=== PATIENT | male | born 1930 | race Caucasian/White ===

== ENCOUNTER 2017-10-15 09:51 | Emergency (ER) | payer MEDICARE, OTHER ==
[~2017-10-15] VITALS: Ht 185.4 cm; Wt 78.0 kg
[~2017-10-15 09:51] MED LIST: ASPIRIN EC325 MG PO; ASPIRIN EC81 MG PO; CELEBREX200 MG PO; IBUPROFEN600 MG PO; LIPITOR80 MG PO; PLAVIX75 MG PO; TYLENOL EXTRA500 MG PO; ULTRAM50 MG PO; VITAMIN B12-FO1 EACH PO; VITAMIN D35000 UNI1 PO; XARELTO10 MG PO
== END 2017-10-15 11:19 | disposition home or self-care (01) ==
LOC: ED 09:51
DX: S43.401A Unspecified sprain of right shoulder joint, initial encounter (principal); S70.01XA Contusion of right hip, initial encounter; D64.9 Anemia, unspecified; Z88.2 Allergy status to sulfonamides; Z79.899 Other long term (current) drug therapy; Z79.82 Long term (current) use of aspirin; Z79.01 Long term (current) use of anticoagulants; W55.12XA Struck by horse, initial encounter
CPT/HCPCS: 73030; 73502; 99283

== ENCOUNTER 2018-09-20 10:53 | Emergency (ER) | payer MEDICARE, OTHER ==
[~2018-09-20] VITALS: Ht 185.4 cm; Wt 76.7 kg
--- OUTSIDE RECORDS SUMMARY | ~2018-09-20 | XMS | Encounter Summary ---
Demographics + + + | Address | [address] | | | [place] [address] | + + + | Home Phone | | + + + | Preferred Language | Unknown | + + + | Marital Status | | + + + | Synagogue Affiliation | 1041 | + + + | Race | Unknown | + + + | Ethnic Group | Unknown | + + + Author + + + | Author | [facility] | + + + | Organization | [facility] | + + + | Address | Unknown | + + + | Phone | Unavailable | + + + Support + + + + + | Name | Relationship | Address | Phone | + + + + + | Demond Castaneda | ECON | [address] | | | | | [place], [place] | | | | | [address] | | + + + + + | Rosina Castaneda | ECON | Unknown | | + + + + + Care Team Providers + +------+ + | Care Serology Teacher Name | Role | Phone | + +------+ + | Kartik Rya MD | PCP | | + +------+ + Reason for Referral Cardiac Rehabilitation (Routine) + +--------+ + + + + | Status | Reason | Specialty | Diagnoses / | Referred By | Referred To | | | | | Procedures | Contact | Contact | + +--------+ + + + + | Authorized | | Cardiac | Diagnoses | Elle, | [facility] | | | | Rehabilitatio | SOB | MD Jazlyn | [address] | | | | n | (shortness | [address] | Cardiac 28[address] | | | | | of breath) | [address] | [facility] | | | | | Stable | Link F | Way | | | | | angina (HCC) | [place] | [place] | | | | | S/P | [address] | [address] | | | | | coronary | Phone: | Phone: | | | | | artery stent | [phone] | [phone] | | | | | placement | Fax: | Fax: | | | | | Atherosclero | [phone] | [phone] | | | | | sis of | | | | | | | [place]ena | | | | | | | coronary | | | | | | | artery of | | | | | | | [place] heart | | | | | | | with stable | | | | | | | angina | | | | | | | pectoris | | | | | | | (HCC) | | | + +--------+ + + + + Nuclear Medicine (Routine) + +--------+ + + + + | Status | Reason | Specialty | Diagnoses / | Referred By | Referred To | | | | | Procedures | Contact | Contact | + +--------+ + + + + | Authorized | | | Diagnoses | Amalia Stanley | | | | | SOB | MD Jazlyn | [facility] | | | | | (shortness | [address] | | | | | of breath) | [address]ju [address] | [facility] | | | | | Stable | Link F | [place], [place] | | | | | angina (HCC) | [place], [place] | [address] | | | | | S/P | [address] | Phone: | | | | | coronary | Phone: | [phone] | | | | | artery stent | [phone] | Fax: | | | | | placement | Fax: | [phone] | | | | | Atherosclero | [phone] | | | | | | sis of | | | | | | | galena | | | | | | | coronary | | | | | | | artery of | | | | | | | [place] heart | | | | | | | with stable | | | | | | | angina | | | | | | | pectoris | | | | | | | (HCC) | | | | | | | Procedures | | | | | | | NM | | | | | | | Pharmaceutic | | | | | | | al (stress | | | | | | | and rest) | | | + +--------+ + + + + Reason for Visit + + + | Reason | Comments | + + + | Establish Care | self referral. stents 3 years ago | + + + Encounter Details +--------+---------+ + + + | Date | Type | Department | Care Team | Description | +--------+---------+ + + + | 07/22/ | Office | [facility] | Jazlyn Stanley, | Chest pain, | | 2019 | Visit | Cardiology Alisha | [address] | unspecified type | | | | [address] | Dr Hung, | (Primary Dx); SOB | | | | [facility] [address] | [place] [address] | (shortness of | | | | [place] [address] | [phone] | breath); Stable | | | | [phone] | | angina ([facility]); S/P | | | | | | coronary artery | | | | | | stent placement; | | | | | | Atherosclerosis of | | | | | | gal[place] coronary | | | | | | artery of galena | | | | | | heart with stable | | | | | | angina pectoris | | | | | | (HCC) | +--------+---------+ + + + Social History [...] + +---------+ + | Alcohol Use | Drinks/We | oz/Week | Comments | | | ek | | | + + +---------+ + | Yes | | | once a week | + + +---------+ + + + + | Sex Assigned at | Date Recorded | | | | + + + | Not on file | | + + + as of this encounter Last Filed Vital Signs + + + + | Vital Sign | Reading | Time Taken | + + + + | Blood Pressure | 104/62 | 07/22/2018 1:52 PM PST | + + + + | Pulse | 64 | 07/22/2018 1:52 PM PST | + + + + | Temperature | - | - | + + + + | Respiratory Rate | 18 | 07/22/2018 1:52 PM PST | + + + + | Oxygen Saturation | 100% | 07/22/2018 1:52 PM PST | + + + + | Inhaled Oxygen | - | - | | Concentration | | | + + + + | Weight | 76.7 kg (169 lb 3.2 | 07/22/2018 1:52 PM PST | | | oz) | | + + + + | Height | 185.4 cm (6' 1") | 07/22/2018 1:52 PM PST | + + + + | Body Mass Index | 22.32 | 07/22/2018 1:52 PM PST | + + + + in this encounter Progress Notes Jazlyn Stanley MD - 07/22/2018 2:00 PM PSTFormatting of this note may be different fro m the original. Date of visit: 07/22/2018 Primary Care Physician: KARTIK RAY CHIEF COMPLAINT: Chief Complaint Patient presents with [facility] self referral. stents 3 years ago HISTORY OF PRESENT ILLNESS: Demond is 87 y.o. here for evaluation of shortness of breath and coronary artery disease. No clear chest pain or anginal symptoms, tries to walk however gets intermittent right arm pressure and pain. Has to hold his arm next to his body sometimes. No lower ext edema, no or thopnea. Blood pressure has been controlled. Modestly active, had a fall in October of 2017 and had to have hip and knee surgery. Has known history of coronary artery disease, was [place] [address] Marrero, attempted CT O of LCX however was unsuccessful. Had PCI in [place] in Jun 2014, evaluated again in Apr 2015 stents were patent, the latest patient doesn't remember. Past medical history, SH, FH, and medications were reviewed in the chart. Medications: Outpatient Encounter Prescriptions as of 07/22/2018 Medication Sig Dispense Refill aspirin 81 MG EC tablet Take 81 mg by mouth daily with breakfast. atorvastatin (LIPITOR) 20 MG tablet Take 20 mg by mouth nightly. Cholecalciferol 5000 UNITS TABS Take by mouth daily. clopidogrel (PLAVIX) 75 MG tablet Take 75 mg by mouth daily. Cyanocobalamin (VITAMIN B 12 PO) Take by mouth. No facility-administered encounter medications on file as of 07/22/2018. Allergies No Known Allergies REVIEW OF SYSTEMS: Constitutional: Positive for mild fatigue. HEENT: Negative for nosebleeds, ear discharge, nasal congestion or soar throat. Eyes: Negative for visual disturbance, redness, or secretion. Respiratory: Negative for cough, sputum production, hemoptysis, wheezing. Cardiovascular: as HPI. Gastrointestinal: Negative for nausea, vomiting, diarrhea, abdominal pain and blood in stoo l. Genitourinary: Negative for dysuria or hematuria. Musculoskeletal: Chronic arthritic pain. Skin: Negative for rash. Neurological: Negative for dizziness. No numbness. No recent falls. No slurred speech. Hematological: No significant bruising. Psychiatric/Behavioral: No depression or anxiety. PHYSICAL EXAM Vital Signs: BP 104/62 | Pulse 64 | Resp 18 | Ht 1.854 m (6' 1") | Wt 76.7 kg (169 lb 3.2 oz) | SpO 2 100% | BMI 22.32 kg/m GENERAL APPEARANCE: Alert, oriented, cooperative, no distress, appears stated age. HEENT: Extraocular movements were intact. No jaundice. Pupiles round and reactive. NECK: No JVD, lymphadenopathy. Carotid upstrokes normal. No carotid bruit heard. CARDIAC: Regular rhythm and rate. There is normal S1 and S2. No galop. No murmur. CHEST: Normal bilateral symmetrical chest excursion.ackles or wheezing. No evidence of dull ness. ABDOMEN: Soft.No tenderness or guarding. No palpable organs. Active bowel sounds. EXTREMITIES: No lower extremities edema, cyanosis or clubbing. NEURO: Alert and oriented times three with no focal deficit. Cranial nerves are grossly no rmal. SKIN: Warm and dry. No rash. Psych: Normal affect and mood. DATA Lab Results Component Value Date/Time NA 140 06/16/2014 12:10 PM K 4.0 06/16/2014 12:10 PM CO2 26 06/16/2014 12:10 PM BUN 24 06/16/2014 12:10 PM CREATININE 1.31 (H) 06/16/2014 12:10 PM Lab Results Component Value Date/Time WBC 3.7 (L) 06/16/2014 12:10 PM HGB 10.0 (L) 06/16/2014 12:10 PM HCT 30.0 (L) 06/16/2014 12:10 PM MCV 93.9 06/16/2014 12:10 PM PLT 177 06/16/2014 12:10 PM Lab Results Component Value Date GLUF 89 06/16/2014 EC07/22/2018 Ordered and reviewed by myself showed normal sinus rhythm with nonspecific intraventricular delay Last Echo: 06/17 ECHO EF 60 % with Grade I diastolic dysfunction Last Stress test: Last Cath: 05/23/2015 Patent LAD and LCX stents. 07/07/14 Dr Dinh Morales PCI of LCX OM1 PROMUS 2.75 x 16 mm. 06/16/14 Failed PCI of LCX OM UNSCRAMBLER due to guidewire perforation at [facility] Last US carotid: ASSESSMENT: Patient is 87 y.o. 1. Coronary artery disease, dyspnea on exertion. Left dominant system, PCI to LAD and the l atest UNSCRAMBLER of OM. 2. Dyslipidemia. 3. History of cerebral vascular accident. 4. Chronic arthritic pain. Plan: Reviewed patient's chart notes and angiogram. Will proceed with Cardiolite stress test. Continue with aspirin and statin. Will refer for cardiac rehabilitation. Monitor blood pressure at home. Follow up in 6 months or sooner if needed *This report has been prepared using a voice recognition system. The report was reviewed fo r accuracy, however, sound-alike word errors, addition and/or deletions may occur. If there is any question about this report please contact me. Jazlyn Stanley MD, MPHin this encounter Plan of Treatment +--------+---------+ + + + | Date | Type | Specialty | Care Team | Description | +--------+---------+ + + + | 01/27/ | Office | Cardiology | Jazlyn Stanley, | | | 2019 | Visit | | MD Vikram Rene | | | | | | Dr [address], | | | | | | [place] [address] | | | | | | [phone] | | | | | | | | +--------+---------+ + + + + +--------+ + + | Name | Priori | Associated Diagnoses | Order Schedule | | | ty | | | + +--------+ + + | NM Pharmaceutical (stress and | Routin | SOB (shortness of | Expected: | | rest) | e | breath) Stable | 07/22/2018, Expires: | | | | angina (HCC) S/P | 01/19/2019 | | | | coronary artery | | | | | stent placement | | | | | Atherosclerosis Of | | | | | [place] Coronary | | | | | Artery Of [place] | | | | | Heart With Stable | | | | | Angina Pectoris | | | | | (Hcc) | | + +--------+ + + + +--------+ + + | Name | Priori | Associated Diagnoses | Order Schedule | | | ty | | | + +--------+ + + | Ambulatory referral to Cardiac | Routin | SOB (shortness of | Ordered: 07/22/2018 | | Rehab | e | breath) Stable | | | | | angina ([facility]) S/P | | | | | coronary artery | | | | | stent placement | | | | | Atherosclerosis Of | | | | | [place] Coronary | | | | | Artery Of [place] | | | | | Heart With Stable | | | | | Angina Pectoris | | | | | ([facility]) | | + +--------+ + + as of this encounter Procedures + +--------+ + + + | Procedure Name | Priori | Date/Time | Associated Diagnosis | Comments | | | ty | | | | + +--------+ + + + | EKG STANDARD 12 LEAD | Routin | 07/22/2018 | Chest pain, | Results for this | | | e | 2:10 PM | unspecified type | procedure are in the | | | | PST | SOB (shortness of | results section. | | | | | breath) | | + +--------+ + + + in this encounter Results EKG STANDARD 12 LEAD (07/22/2018 2:10 PM) + + + + + | Component | Value | Ref Range | Performed At | + + + + + | Ventricular Rate | 66 | BPM | [facility] | + + + + + | Atrial Rate | 66 | BPM | [facility] | + + + + + | P-R Interval | 180 | ms | [facility] | + + + + + | QRS Duration | 132 | ms | [facility] | + + + + + | Q-T Interval | 420 | ms | [facility] | + + + + + | QTC Calculation | 440 | ms | [facility] | | (Bezet) | | | | + + + + + | Calculated P Semin[place] | 68 | degrees | [facility] | + + + + + | Calculated R [place] | 29 | degrees | [facility] | + + + + + | Calculated T [place] | 53 | degrees | [facility] | + + + + + | Diagnosis | Normal sinus | | [facility] | | | rhythmNon-specific | | | | | intra-ventricular | | | | | conduction blockAbnormal | | | | | ECGWhen compared with | | | | | ECG of 17-JUN-2014 | | | | | 07:35,ST no longer | | | | | depressed in Inferior | | | | | leadsT wave inversion no | | | | | longer evident in | | | | | Inferior leadsT wave | | | | | inversion no longer | | | | | evident in Lateral | | | | | leadsPlease refer to | | | | | Providers office visit | | | | | note for Providers | | | | | Interpretation.Confirmed | | | | | by [facility] [place] Read Only, | | | | | [facility]ju ([id number]), | | | | | market editor Marlo Aggarwal | | | | | (122) on 07/22/2018 | | | | | 3:10:29 PM | | | + + + + + + + + + + | Performing | Address | City/State/Zipcode | Phone Number | | Organization | | | | + + + + + | [facility] | [address] 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
--- OUTSIDE RECORDS SUMMARY | ~2018-09-20 | XMS | Encounter Summary ---
Demographics + + + | Address | [address] | | | [place] [address] | + + + | Home Phone | | + + + | Preferred Language | Unknown | + + + | Marital Status | | + + + | Faith Affiliation | 1041 | + + + | Race | Unknown | + + + | Ethnic Group | Unknown | + + + Author + + + | Author | [facility] | + + + | Organization | [facility] | + + + | Address | Unknown | + + + | Phone | Unavailable | + + + Support + + + + + | Name | Relationship | Address | Phone | + + + + + | Demond Castaneda | ECON | [address] | | | | | [place], [place] | | | | | [address] | | + + + + + | Rosina Castaneda | ECON | Unknown | | + + + + + Care Team Providers + +------+ + | Care Electric Motor And Generator Assembler Name | Role | Phone | + +------+ + | Aimee Zimmerman Md, MD | PCP | Unavailable | + +------+ + Encounter Details +--------+ + + + + | Date | Type | Department | Care Team | Description | +--------+ + + + + | 07/16/ | Care | [facility] | [facility] | | | 2019 | Coordinatio | Cardiology Rica [facility] | | | | n | [address] | | | | | | [place] | | | | | | [address] | | | | | | [phone] | | | +--------+ + + + [...] + + + as of this encounter Progress Notes Hailey Brooks, [facility] - 07/16/2018 12:22 PM PSTOutside records pulled in. Available on care everywhere now. in this encounter Plan of Treatment +--------+---------+ + + + | Date | Type | Specialty | Care Team | Description | +--------+---------+ + + + | 01/27/ | Office | Cardiology | Jazlyn Almeida, | | | 2018 | Visit | | MD Vikram Rene | | | | | | Dr [address], | | | | | | [place] [address] | | | | | | [phone] | | | | | | | | +--------+---------+ + + + as of this encounter Visit Diagnoses Not on filein this encounter"
--- OUTSIDE RECORDS SUMMARY | ~2018-09-20 | XMS | Encounter Summary ---
Demographics + + + | Address | [address] | | | [place] [address] | + + + | Home Phone | | + + + | Preferred Language | Unknown | + + + | Marital Status | | + + + | Voodoo Affiliation | 1041 | + + + | Race | Unknown | + + + | Ethnic Group | Unknown | + + + Author + + + | Author | [facility] | + + + | Organization | [facility] | + + + | Address | Unknown | + + + | Phone | Unavailable | + + + Support + + + + + | Name | Relationship | Address | Phone | + + + + + | Demond Castaneda | ECON | [address] | | | | | [place], [place] | | | | | [address] | | + + + + + | Rosina Castaneda | ECON | Unknown | | + + + + + Care Team Providers + +------+ + | Care Belt Loop Machine Operator Name | Role | Phone | + +------+ + | Jerome Ray MD | PCP | | + +------+ + Reason for Visit +--------+ + | Reason | Comments | +--------+ + | Other | [facility] 10/15/17 | +--------+ + Encounter Details +--------+ + + + + | Date | Type | Department | Care Team | Description | +--------+ + + + + | 07/30/ | Documentati | [facility] Kapil | Suellen Russo, | Other ( Ashish | | 2019 | on Only | [address] [place] | MISAEL | kia 10/15/17) | | | | [address] | | | | | | [place] | | | | | | [address] | | | | | | [phone] | | | +--------+ + + + [...] + + + as of this encounter Plan of Treatment +--------+---------+ + + + | Date | Type | Specialty | Care Team | Description | +--------+---------+ + + + | 01/27/ | Office | Cardiology | Jazlyn Almeida, | | | 2018 | Visit | | MD Vikram Rene | | | | | | Dr [address], | | | | | | [place] [address] | | | | | | [phone] | | | | | | | | +--------+---------+ + + + as of this encounter Visit Diagnoses Not on filein this encounter"
--- OUTSIDE RECORDS SUMMARY | ~2018-09-20 | XMS | Clinical Summary ---
Demographics + + + | Address | [address] | | | [place] [address] | + + + | Home Phone | | + + + | Preferred Language | Unknown | + + + | Marital Status | | + + + | Gnosticism Affiliation | 1041 | + + + | Race | Unknown | + + + | Ethnic Group | Unknown | + + + Author + + + | Author | [email or web address] | + + + | Organization | [email or web address] | + + + | Address | Unknown | + + + | Phone | Unavailable | + + + Support + + + + + | Name | Relationship | Address | Phone | + + + + + | Dena Rose | ECON | [address] | | | | | [place], [place] | | | | | [address] | | + + + + + | Rosina Rose | ECON | Unknown | | + + + + + Care Team Providers + +------+ + | Care Android Ui Developer Name | Role | Phone | + +------+ + | Jerome Ray MD | PP | | + +------+ + Allergies No Known Allergies Current Medications + + +-------+---------+------+------+-------+ | Prescription | Sig. | Disp. | Refills | Star | End | Statu | | | | | | t | Date | s | | | | | | Date | | | + + +-------+---------+------+------+-------+ | aspirin 81 MG EC | Take 81 mg by mouth | | | | | Activ | | tablet | daily with | | | | | e | | | breakfast. | | | | | | + + +-------+---------+------+------+-------+ | Cholecalciferol | Take by mouth | | | | | Activ | | 5000 UNITS TABS | daily. | | | | | e | + + +-------+---------+------+------+-------+ | clopidogrel | Take 75 mg by mouth | | | | | Activ | | (PLAVIX) 75 MG | daily. | | | | | e | | tablet | | | | | | | + + +-------+---------+------+------+-------+ | atorvastatin | Take 20 mg by mouth | | | | | Activ | | (LIPITOR) 20 MG | nightly. | | | | | e | | tablet | | | | | | | + + +-------+---------+------+------+-------+ | Cyanocobalamin | Take by mouth. | | | | | Activ | | (VITAMIN B 12 PO) | | | | | | e | + + +-------+---------+------+------+-------+ Active Problems + + + | Problem | Noted Date | + + + | Cerebrovascular accident (HCC) | 07/22/2018 | + + + | Closed fracture of femur (HCC) | 07/22/2018 | + + + | Coronary arteriosclerosis | 07/22/2018 | + + + + + | Overview: Jul 03, 2015 | | Entered By: GUISEPPE MCDONOUGH | | Comment: EKG today shows old lateral infarct. PTCA x 1 OM1 06/09 | + + + + + | Coronary atherosclerosis of [place] coronary artery | 07/22/2018 | + + + | Stable angina (HCC) | 07/22/2018 | + + + | S/P coronary artery stent placement | 11/16/2015 | + + + + + | Overview: Overview: Last Assessment & Plan: May need to hold | | ASA and Plavix due to planned orthopedic procedure. Stent was | | placed 07/[address] [facility], [place] | + + + + + | Adenocarcinoma of prostate (HCC) | 10/06/2013 | + + + | CA prostate, adenoca (HCC) | 10/06/2013 | + + + Encounters +--------+ + + + + | Date | Type | Specialty | Care Team | Description | +--------+ + + + + | 08/05/ | Documentati | | Jazlyn Almeida, | | | 2019 | on Only | | MD | | +--------+ + + + + | 07/30/ | Documentati | | Suellen Russo, | Other ([facility] | | 2019 | on Only | | [place] | records 10/15/17) | +--------+ + + + + | 07/22/ | Office | | Jazlyn Almeida, | Chest pain, | | 2018 | Visit | | MD | unspecified type | | | | | | (Primary Dx); SOB | | | | | | (shortness of | | | | | | breath); Stable | | | | | | angina ([facility]); S/P | | | | | | coronary artery | | | | | | stent placement; | | | | | | Atherosclerosis of | | | | | | [place] coronary | | | | | | artery of [place] | | | | | | heart with stable | | | | | | angina pectoris | | | | | | ([facility]) | +--------+ + + + + | 07/16/ | Care | | Hailey Duckworth | | | 2019 | Coordinatio | | GENE Yu | | | | n | | | | +--------+ + + + + from Last 3 Months Social History + +-------+ +--------+ + | [...] + + + + | Temperature | 36.6 C (97.8 F) | 06/17/2014 7:31 AM PST | + + + + | Respiratory [...] PM PST | + + + + Plan of Treatment +--------+---------+ + + + | Date | Type | Specialty | Care Team | Description | +--------+---------+ + + + | 01/27/ | Office | | Jazlyn Almeida, | | | 2018 | Visit | | MD Vikram Rene | | | | | | Dr [address], | | | | | | [place] [address] | | | | | | [phone] | | | | | | | | +--------+---------+ + + + + + + + + | Health Maintenance | Due Date | Last Done | Comments | + + + + + | Vaccine: | | | | | Dtap/Tdap/Td (1 - | 1 | | | | Tdap) | | | | + + + + + | Vaccine: Zoster (1 | | | | | of 2) | 2 | | | + + + + + | Vaccine: | | | | | Pneumococcal 65+ | 7 | | | | High/Highest Risk (1 | | | | | of 2 - PCV13) | | | | + + + + + | Vaccine: Influenza | | | | | (Season Ended) | 9 | | | + + + + + Procedures + +--------+ + + + | [...] | | + +--------+ + + + from Last 3 Months Results EKG STANDARD 12 LEAD (07/22/2018 2:10 PM) + + + + + | Component | Value | Ref Range | Performed At | + + + + + | Ventricular Rate | 66 | BPM | [facility] | + + + + + [...] + + + + | Calculated P Lee | 68 | degrees | [facility] | + + + + + | Calculated R Lee | 29 | degrees | [facility] | + + + + + | Calculated T Lee | 53 | degrees | [facility] | + + + + + | Diagnosis | Normal sinus | | [facility] | | | rhythmNon-specific | | [...] | | | | | by [facility] [place] Read Only, | | | | | [facility] Anju ([id number]), | | | | | purchasing expeditor Marlo Aggarwal | | | | | (535) on 07/22/2018 | | | | | 3:10:29 PM | | | + + + + + + + + + + | Performing | Address | City/State/Zipcode | Phone Number | | Organization | | | | + + + + + | [facility] | [address] | [place] [address] | | + + + + + from Last 3 Months Insurance + +--------+ +------+-------+ + | Payer | Benefi | Subscriber | Type | Phone | Address | | | t Plan | ID | | | | | | / | | | | | | | Group | | | | | + +--------+ +------+-------+ + | MEDICARE | MEDICA | [id number] | | | [address] | | | [place] | | | | [place] [address] | | | IP-OP | | | | | + +--------+ +------+-------+ + | - WPS - | TRICAR | [id number] | | | [address] [address] | | [place] | [place] | | | | [place] | | | LIFE | | | | [address] | + +--------+ +------+-------+ + + +--------+ +--------+ + + | Guarantor Name | Accoun | Relation to | Date | Phone | Billing Address | | | t Type | Patient | of | | | | | | | | | | + +--------+ +--------+ + + | DENA ROSE | Person | Self [birth year] | Home: | [address] | | | al/Fam | | 1931 | [phone] | [place] [address] | | | dominique | | | [phone] | | + +--------+ +--------+ + +
--- OUTSIDE RECORDS SUMMARY | ~2018-09-20 | XMS | Clinical Summary ---
Demographics + + + | Address | [address] | | | [place] [address] | + + + | Home Phone | | + + + | Preferred Language | Unknown | + + + | Marital Status | | + + + | Holiness Affiliation | 1041 | + + + | Race | Unknown | + + + | Ethnic Group | Unknown | + + + Author + + + | Author | [facility] | | | and [place] | + + + | Organization | [...] + | Lesia Castaneda | ECON | [address] | | | | | [place] [address] | | + + + + + | Rosina Castaneda | ECON | Unknown | | + + + + + Care Team Providers + +------+ + | Care Apartment Leasing Specialist Name | Role | Phone | + +------+ + | Sergio Thompson MD | PP | | + +------+ + Allergies + + + + + + | Active Allergy | Reactions | Severity | Noted | Comments | | | | | Date | | + + + + + + | Sulfa Antibiotics | Nausea And Vomiting | Low | 07/24/19 | | | | | | 16 | | + + + + + + Medications + + + +---------+------+------+-------+ | Medication | Sig | Dispensed | Refills | Star | End | Statu | | | | | | t | Date | s | | | | | | Date | | | + + + +---------+------+------+-------+ | cholecalciferol | Take 1 capsule by | 30 | 2 | 05/2 | | Activ | | 5000 UNITS | mouth Daily. | capsule | | 20 | | e | | CAPSIndications: | | | | 14 | | | | Malignant neoplasm | | | | | | | | of prostate (HCC) | | | | | | | + + + +---------+------+------+-------+ | aspirin 81 mg | Take 81 mg by mouth | | 0 | | | Activ | | chewable tablet | Daily. | | | | | e | + + + +---------+------+------+-------+ | acetaminophen | Take 1,000 mg by | | 0 | | | Activ | | (TYLENOL) 500 mg | mouth Daily. Takes | | | | | e | | tablet | every am | | | | | | + + + +---------+------+------+-------+ | clopidogrel | Take 75 mg by mouth | | 0 | | | Activ | | (PLAVIX) 75 mg | Daily. | | | | | e | | tablet | | | | | | | + + + +---------+------+------+-------+ | cyanocobalamin | Take 500 mcg by | | 0 | | | Activ | | (VITAMIN B-12) 500 | mouth Daily. | | | | | e | | mcg tablet | | | | | | | + + + +---------+------+------+-------+ | MULTIPLE VITAMIN | Take by mouth | | 0 | | | Activ | | PO | Daily. | | | | | e | + + + +---------+------+------+-------+ | oxyCODONE | Take 1 tablet by | 20 | 0 | 06/2 | | Activ | | (ROXICODONE) 5 mg | mouth every 3 hours | tablet | | 9/20 | | e | | tablet | as needed for Pain. | | | 16 | | | + + + +---------+------+------+-------+ | atorvaSTATin | | | 0 | 12/2 | | Activ | | (LIPITOR) 20 mg | | | | 2/20 | | e | | tablet | | | | 18 | | | + + + +---------+------+------+-------+ Active Problems + + + | Problem | Noted Date | + + + | S/P coronary artery stent placement | 11/16/2015 | + + + + + | Last Assessment & Plan: May need to hold ASA and Plavix due | | to planned orthopedic procedure. Stent was [facility] | | Sabina Zamudio, [place] | + + + + + | Closed right hip fracture, initial encounter | 11/16/2015 | + + + + + | Last Assessment & Plan: Acute traumatic injury, admission and | | care per orthopedist transplant nurse practitioner today. | + + + + + | Low hemoglobin | 07/24/2015 | + + + + + | Last Assessment & Plan: Appears chronic s/p evaluation by GI | | and heme/onc. Will need type and crossmatch. 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 | + + + | CAD (coronary artery disease) | | + + + | Anemia | | + + + | CVA (cerebral vascular accident) | | + + + Encounters +--------+ + + + + | Date | Type | Specialty | Care Team | Description | +--------+ + + + + | 08/12/ | Hospital | | Demond Castellon | CA prostate, adenoca | | 2019 | Encounter | | MD [facility] | ([facility]) (Primary Dx); | | | | | | Cerebrovascular | | | | | | accident (CVA), | | | | | | unspecified | | | | | | mechanism ([facility]); | | | | | | Anemia, unspecified | | | | | | type; Closed right | | | | | | hip fracture, | | | | | | initial encounter | | | | | | ([facility]) | +--------+ + + + + from [...] + +---------+ + | Yes | 2 | 1.2 | | | | Glasses | | | | | of wine | | | | | 0 | | | | | Standard | | | | | drinks or | | | | | | | | | | equivalen | | | | | t | | | + + +---------+ + [...] + | Blood Pressure | 114/53 | 08/12/2018942 PDT | + + + + | Pulse | 59 | 08/12/2018942 PDT | + + + + | Temperature | 36.3 C (97.3 F) | 08/12/2018942 PDT | + + + + | Respiratory Rate | 16 | 08/12/2018942 PDT | + + + + | Oxygen Saturation | 97% | 08/12/2018942 PDT | + + + + | Inhaled Oxygen | - | - | | Concentration | | | + + + + | Weight | 75.7 kg (166 lb 14.2 | 08/12/201843 PDT | | | oz) | | + + + + | Height | 185.4 cm (6' 0.99") | 11/19/20151999 PDT | + + + + | Body Mass Index | 22.02 | 11/19/20151999 PDT | + + + + Plan of Treatment +--------+ + + + + | Date | Type | Specialty | Care Team | Description | +--------+ + + + + | 08/16/ | Appointment | | Demond Castellon | | | 2019 | | | MD [facility] [address] | | | | | | [address] | | | | | | [place] [address] | | | | | | [phone] | | | | | | | | +--------+ + + + + + + + + + | Health Maintenance | Due Date | Last Done | Comments | + + + + + | Vaccine: | | | | | Dtap/Tdap/Td (1 - | 1 | | | | Tdap) | | | | + + + + + | Vaccine: Zoster (2 | | 04/26/2014 | | | of 3) | 5 | | | + + + + + | Adult Annual | | | | | Wellness Visit | 5 | | | + + + + + | Vaccine: | | 06/01/2015 | | | Pneumococcal 65+ | 6 | | | | High/Highest Risk (2 | | | | | of 2 - PPSV23) | | | | + + + + + | Vaccine: Influenza | Completed | 03/27/2018, 03/04/2017, | | | | | 03/01/2016, Additional history | | | | | exists | | + + + + + Implants + +------+--------+ +--------+--------+--------+ | Implanted | Type | Area | Manufacture | Device | Shelf | Model | | | | | r | | Expira | / | | | | | | Identi | tion | Serial | | | | | | fier | Date | / Lot | + +------+--------+ +--------+--------+--------+ | Imp Hip Fem Stem Sumt Sz8 - | | Right: | JJHCS DEPUY | | 12/12/ | 1570-0 | | [id number]: Qty: 1 on | | Hip | ORTHO - | | 2018 | 5-150 | | 11/16/2015 by Rayo Mercado | | | DEPU | | | / | | MD Mo | | | | | | [id number] | | | | | | | | 1000 | + +------+--------+ +--------+--------+--------+ | Imp Hip Fem Hd Mod Cthcrt | | Right: | JJHCS DEPUY | | 04/14/ | 1363-5 | | 54mm - [id number]: | | Hip | ORTHO - | | 2023 | 4-000 | | Qty: 1 on 11/16/2015 by | | | DEPU | | | / | | Rayo Mercado MD | | | | | | /[id number] | | | | | | | | 8 | + +------+--------+ +--------+--------+--------+ | Imp Hip Slv Mod Unipl | | Right: | [employer]CS DEPUY | | 04/24/ | 1363-1 | | [id number] | | Hip | ORTHO - | | 2024 | 4-000 | | [id number]: Qty: 1 on | | | DEPU | | | / | | 11/16/2015 by Rayo Mercado | | | | | | /[id number] | | MD Mo | | | | | | 6 | + +------+--------+ +--------+--------+--------+ Procedures + +--------+ + + + | Procedure Name | Priori | Date/Time | Associated Diagnosis | Comments | | | ty | | | | + +--------+ + + + | CBC WITH | STAT | 08/12/2018 | CA prostate, | Results for this | | DIFFERENTIAL | | 9:31 PDT | adenoca (HCC) | procedure are in the | | | | | Cerebrovascular | results section. | | [...] | | METABOLIC PANEL | | 9:31 PDT | adenoca (HCC) | procedure are in the | | | | | Cerebrovascular | results section. | | [...] for this | | | | 9:31 PDT | adenoca (HCC) | procedure are in the | | | | | Cerebrovascular | results section. | | [...] + + from Last 3 Months Results CBC with Differential (08/12/2018 9:31 PDT) + + + + + + | Component | Value | Ref Range | Performed | Pathologist | | | | | At | Signature | + + + + + + | WBC | 5.1 | 4.0 - 11.0 K/uL | [facility] | [facility] | | | | | | [facility] | | | | | | [facility] - | | | | | | LABORATORY | | + + + + + + | RBC | 2.90 (L) | 4.30 - 5.70 | [facility] | | | | | M/uL | [facility] | [address] | [place] | [phone] | | [facility] | | [address] | | | - LABORATORY | | | | + + + + + PSA, Diagnostic (08/12/2018 9:31 PDT) + + + + + + [...] [address] | [place] | [phone] | | [facility] | | [address] | | | - LABORATORY | | | | + + + + + Comprehensive Metabolic Panel (08/12/2018 9:31 PDT) + +---------+ + + + | [...] mL/min/1.73m2 | [facility] | | | | | | [facility] - | | | | | | LABORATORY | | + +---------+ + + + | Ca | 9.6 | 8.7 - 10.4 | [...] [address] | [place] | [phone] | | [facility] | | [address] | | | - LABORATORY | | | | + + + + + from Last 3 Months Insurance + +--------+ +--------+ +---------+--------+ | Payer | Benefi | Subscriber | Effect | Phone | Address | Type | | | t Plan | ID | malissa | | | | | | / | | Dates | | | | | | Group | | | | | | + +--------+ +--------+ +---------+--------+ | MEDICARE | MEDICA | [id number] | 11/23/18 | [phone] | | Medica | | | RE | | 97-Pre | 5 | | re | | | PART A | | sent | | | | | | AND B | | | | | | + +--------+ +--------+ +---------+--------+ | | TRICAR | [id number] | 04/13/ | [phone] | | Indemn [...] | + +--------+ +--------+ + + | TonyaDemond Solo | Person | Self | [birth year] | [address] | | | al/Fam | | 1931 | [phone] | [place] [address] | | | dominique | | | 7 (Home) | | + +--------+ +--------+ + + Advance Directives Patient has advance care planning documents, and code status on file. For more information, please contact:[facility] [place] [address] + + + + + | Code Status | Date | Date | Comments | | | Activated | Inactivated | | + + + + + | Full Code | 11/19/2015 | 11/22/2015 | | | | 21:40 | 18:34 | | + + + + + + + + +---+ | | | | | + + + +---+ | Full Code | 11/16/2015 | 11/19/2015 | | | | 21:49 | 21:37 | | + + + +---+
--- OUTSIDE RECORDS SUMMARY | ~2018-09-20 | XMS | Encounter Summary ---
Demographics + + + | Address | [address] | | | [place] [address] | + + + | Home Phone | | + + + | Preferred Language | Unknown | + + + | Marital Status | | + + + | Protestant Affiliation | 1041 | + + + [...] + | Lesia Castaneda | ECON | [address] | | | | | [place] [address] | | + + + + + | Rosina Castaneda | ECON | Unknown | | + + + + + Care Team Providers + +------+ + | Care Tray Drier Operator Name | Role | Phone | + +------+ + | Sergio Thompson MD | PCP | | + +------+ + Encounter Details +--------+ + + + + | Date | Type | Department | Care Team | Description | +--------+ + + + + | 08/12/ | Hospital | [facility] | Demond Castellon | CA prostate, adenoca | | 2019 | Encounter | [facility] | MD [facility] [address] | ([facility]) (Primary Dx); | | | | ONCOLOGY CLINIC [address] | [address] | Cerebrovascular | | | | [address] | [place] [address] | accident (CVA), | | | | [place] [address] | [phone] | unspecified | | | | [phone] | | mechanism (HCC); | | | | | | Anemia, unspecified | | | | | | type; Closed right | | | | | | hip fracture, | | | | | | initial encounter | | | | | | ([facility]) | +--------+ + + + + Social [...] 75.7 kg (166 lb 14.2 | 08/12/2018 0943 PDT | | | oz) | | + + + + | Height | - | - | + + + + | Body Mass Index | 22.02 | 11/19/20151999 PDT | + + + + documented in this [...] Daily. Takes | | | | | | tablet | every am | | | | | + + + +---------+ + + | aspirin 81 mg | Take 81 mg by mouth | | 0 | | | | chewable tablet | Daily. | | | | | + + + +---------+ + + | atorvaSTATin | | | 0 | 05/16/20 | | | (LIPITOR) 20 mg | | | | 18 | | | tablet | | | | | | + + + +---------+ + + | cholecalciferol | Take 1 capsule by | 30 | 2 | 10/14/19 | | | 5000 UNITS | mouth Daily. | capsule | | 14 | | | CAPSIndications: | | | | | | | Malignant neoplasm | | | | | | | of prostate (HCC) | | | | | | + + + +---------+ + + | clopidogrel | Take 75 mg by mouth | | 0 | | | | (PLAVIX) 75 mg | Daily. | | | | | | tablet | | | | | | + + + +---------+ + + | cyanocobalamin | Take 500 mcg by | | 0 | | | | (VITAMIN B-12) 500 | mouth Daily. | | | | | | mcg tablet | | | | | | + + + +---------+ + + | MULTIPLE VITAMIN | Take by mouth | | 0 | | | | PO | Daily. | | | | | + + + +---------+ + + | oxyCODONE | Take 1 tablet by | 20 | 0 | 11/22/19 | | | (ROXICODONE) 5 mg | mouth every 3 hours | tablet | | 16 | | | tablet | as needed for Pain. | | | | | + + + +---------+ + + documented as of this encounter Progress Notes Estelita Loyd CMA - 08/12/2018 0944 PDTREVIEW OF SYSTEMS Constitutional: Mild fatigue. Denies [...] chart: Active emond Castellon MD - 08/12/2018 0717 PDT Hem-Onc Progress Note [facility] Pt. Name/Age/: Demond Castaneda 87 y.o. 1930 Med. Record Number: [id number] Date of admission: (Not on file) Assessment and plan: 1. 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 Stroke, November, 3. Angina Pectoris, Dec, 2013, S/p PCI, [facility], [place] 4. Fall hip fracture, November,, [...] follow- up cardiac stress test obtained through [facility] with negative findings for is chemia. [...] Electronically signed by: Demond Castellon, 08/12/2018 7:17 [facility] TIME SPENT 20 MIN. > 50% AT BEDSIDE, WITH FAMILY/PATIENT IN CARE AND SIDE SEAM TENDER ON UNIT AND CO ORDINATION OF CARE Portions of this chart may have been created with [employer] voice recognition software. Occasi onal wrong-word or sound-alike substitutions may have occurred due to the inherent epperson itations of voice recognition software. Please read the chart carefully and recognize, using context, where these substitutions have occurred. documented in this encounter Plan of Treatment +--------+ + + + + | Date | Type | Specialty | Care Team | Description | +--------+ + + + + | 08/16/ | Appointment | Oncology | Demond Castellon | | 2019 | | | MD [facility] [address] | | | | | | [address] | | | | | | [place] [address] | | | | | | [phone] | | | | | | | | +--------+ + + + + documented as of this encounter Procedures + +--------+ + + + | Procedure Name | Priori | Date/Time | Associated Diagnosis | Comments | | | ty | | | | + +--------+ + + + | CBC WITH | STAT | 08/12/2018 | CA prostate, | Results for this | | DIFFERENTIAL | | : PDT | adenoca (HCC) | procedure are [...] this encounter Results PSA, Diagnostic (08/12/2018 9:31 PDT) + + + + + + | Component | Value | Ref Range | Performed | Pathologist | | | | | At | Signature | + + + + + + | PSA | 15.89 (H) | <=4.00 ng/mL | [facility] | [...] | + + + + + | [facility] | [address] | [place] | [phone] | | [facility] | | [address] | | | - LABORATORY | | [...] | | | | | mL/min/1.73m2 | . [facility] | | | [facility] | | | MEDICAL | | | | | | CENTER - | | | | | | LABORATORY | | + +---------+ + + + | Ca | 9.6 | 8.7 - 10.4 | [facility] | | | | | mg/dL | . [facility] | | | | [...] [address] | [place] | [phone] | | [facility] | | [address] | | | - LABORATORY | | | | + + + + + CBC with Differential (08/12/2018 9:31 PDT) + [...] | | | | M/uL | [facility] | [...] | | Count | | | [facility] | | [...] | | | Granulocyte | | | [facility] | | | s | | | [...] | | Lymphocytes | | K/uL | [facility] | [...] | Immature | | K/uL | [facility] | | | Granulocyte | | | [...] + | [facility] | [address] | [place] | [phone] | | [facility] | | [address] | | | - LABORATORY | | [...]
--- OUTSIDE RECORDS SUMMARY | ~2018-09-20 | XMS | Clinical Summary ---
Demographics + + + | Address | [address] | | | [place] [address] | + + + | Home Phone | | + + + | Preferred Language | Unknown | + + + | Marital Status | | + + + | Pentecostalism Affiliation | Unknown | + + + | Race | White | + + + | Ethnic Group | Not or | + + + Author + + + | Author | [facility] | + + + | Organization | [facility] | + + + | Address | Unknown | + + + | Phone | Unavailable | + + + Support + + +---------+ + | Name | Relationship | Address | Phone | + + +---------+ + | Sandy Zamora | ECON | Unknown | | + + +---------+ + Care Team Providers + +------+ + | Care Neuroscientist Name | Role | Phone | + +------+ + | Jerome Ray MD | PP | | + +------+ + Source Comments DAVID is fully live on both [facility] and [facility] Allergies No Known Allergies Current Medications + + +-------+---------+------+------+-------+ | Prescription | Sig. | Disp. | Refills | Star | End | Statu | | | | | | t | Date | s | | | | | | Date | | | + + +-------+---------+------+------+-------+ | aspirin EC 81 mg | 81 mg. | | | | | Activ | | oral tablet,delayed | | | | | | e | | release (DR/EC) | | | | | | | + + +-------+---------+------+------+-------+ | cyanocobalamin | Take by mouth. | | | | | Activ | | 1,000 mcg oral | | | | | | e | | tablet | | | | | | | + + +-------+---------+------+------+-------+ | clopidogrel 75 mg | 75 mg. | | | | | Activ | | oral tablet | | | | | | e | + + +-------+---------+------+------+-------+ | atorvastatin 80 mg | Take 80 mg by mouth | | | | | Activ | | oral tablet | once daily. | | | | | e | + + +-------+---------+------+------+-------+ | Cholecalciferol, | Take 5,000 Units by | | | | | Activ | | Vitamin D3, 5,000 | mouth once daily. | | | | | e | | unit oral tablet | | | | | | | + + +-------+---------+------+------+-------+ | Multivitamins oral | Chew and swallow 1 | | | | | Activ | | tablet,chewable | tablet once daily. | | | | | e | + + +-------+---------+------+------+-------+ Active Problems + + + | Problem | Noted Date | + + + | Chronic coronary artery disease | 10/05/2015 | + + + | Cerebrovascular accident (CVA) ([facility]) | 10/05/2015 | + + + | Low hemoglobin | 07/24/2015 | + + + | Gastrointestinal hemorrhage | 06/16/2015 | + + + | Unstable angina pectoris (HCC) | 05/22/2015 | + + + | Anemia | 07/08/2014 | + + + | Adenocarcinoma of prostate (HCC) | 10/06/2013 | + + + Social [...] + +---------+ + | Yes | 1 | 0.6 | | | | Glasses | | | | | of wine | | | + + [...] Pressure | 125/63 | 09/29/2015 11:02 AM PDT | + + + + | Pulse | 52 | 09/29/2015 11:02 AM PDT | + + + + | Temperature | - | - | + + + + | Respiratory Rate | - | - | + + + + | Oxygen Saturation | - | - | + + + + | Inhaled Oxygen | - | - | | Concentration | | | + + + + | Weight | 78 kg (172 lb) | 09/29/2015 11:02 AM PDT | + + + + | Height | 185.4 cm (6' 1") | 09/29/2015 11:02 AM PDT | + + + + | Body Mass Index | 22.69 | 09/29/2015 11:02 AM PDT | + + + + Plan of Treatment + + + + + | Health Maintenance | Due Date | Last Done | Comments | + + + + + | Pneumococcal (Adult) | | | | | (1 of 2 - PCV13) | 7 | | | + + + + + | Influenza (Flu) | | | | | vaccination (#1) | 8 | | | + + + + + Results Not on filefrom Last 3 Months Insurance + +--------+ +--------+ + + | Payer | Benefi | Subscriber | Type | Phone | Address | | | t Plan | ID | | | | | | / | | | | | | | Group | | | | | + +--------+ +--------+ + + | MEDICARE | MEDICA | xxxxxxxxxx | Medica | +- | [address] | | | RE A & | | re | [phone] | [place] [address] | | | B | | | | | + +--------+ +--------+ + + | | TRICAR | xxxxxxxxx | Indemn | +- | | | | E 4 | | ity | [phone] | | | | LIFE | | | | | + +--------+ +--------+ + + + +--------+ +--------+ + + | Guarantor Name | Accoun | Relation to | Date | Phone | Billing Address | | | t Type | Patient | of | | | | | | | | | | + +--------+ +--------+ + + | DENA ROSE | Person | Self [birth year] Home: | [address] | | | al/Fam | | 1931 | [phone] | [place] [address] | | | dominique | | | [phone] | | + +--------+ +--------+ + +
--- OUTSIDE RECORDS SUMMARY | ~2018-09-20 | XMS | Encounter Summary ---
Demographics + + + | Address | [address] | | | [place] [address] | + + + | Home Phone | | + + + | Preferred Language | Unknown | + + + | Marital Status | | + + + | Pentecostal Affiliation | 1041 | + + + | Race | Unknown | + + + | Ethnic Group | Unknown | + + + Author + + + | Author | [facility] | + + + | Organization | [facility] | + + + | Address | Unknown | + + + | Phone | Unavailable | + + + Support + + + + + | Name | Relationship | Address | Phone | + + + + + | Demond Castaneda | ECON | [address] | | | | | [place], [place] | | | | | [address] | | + + + + + | Rosina Castaneda | ECON | Unknown | | + + + + + Care Team Providers + +------+ + | Care Worm Farmer Name | Role | Phone | + +------+ + | Jerome Ray MD | PCP | | + +------+ + Encounter Details +--------+ + + + + | Date | Type | Department | Care Team | Description | +--------+ + + + + | 08/05/ | Documentati | [facility] | Jazlyn Almeida, | | | 2019 | on Only | Cardiology Alisha | [address] | | | | | [address] | [address], | | | | | [facility] [address] | [place] [address] | | | | | [place] [address] | [phone] | | | | | [phone] | | | +--------+ + + + [...] + as of this encounter Progress Notes Jazlyn Almeida MD - 08/05/2018 12:14 PM PDTCalled the patient and reviewed stress test results with him. No evidence of reversible defect to suggest ischemia. Normal systolic function EF 63%. Normal transient ischemic dilatation score. Patient will follow-up as scheduled.in this enc ounter Plan of Treatment +--------+---------+ + + + | Date | Type | Specialty | Care Team | Description | +--------+---------+ + + + | 01/27/ | Office | Cardiology | Jazlyn Almeida, | | | 2018 | Visit | | MD [address] | | | | | | Dr [address], | | | | | | [place] [address] | | | | | | [phone] | | | | | | | | +--------+---------+ + + + as of this encounter Visit Diagnoses Not on filein this encounter"
== END 2018-09-20 12:30 | disposition home or self-care (01) ==
LOC: ED 10:53
DX: S52.125A Nondisplaced fracture of head of left radius, initial encounter for closed fracture (principal); Z85.46 Personal history of malignant neoplasm of prostate; D50.9 Iron deficiency anemia, unspecified; Z87.891 Personal history of nicotine dependence; Z90.49 Acquired absence of other specified parts of digestive tract; Z88.2 Allergy status to sulfonamides; Z79.82 Long term (current) use of aspirin; V80.010A Animal-rider injured by fall from or being thrown from horse in noncollision accident, initial encounter
CPT/HCPCS: 73080; 99283

== ENCOUNTER 2019-12-09 10:39 | Emergency (ER) | payer MEDICARE, OTHER ==
[~2019-12-09] VITALS: Ht 185.4 cm; Wt 76.7 kg
--- OUTSIDE RECORDS SUMMARY | ~2019-12-09 | XMS | Encounter Summary ---
Demographics + + + | Address | [address] | | | [place] [address] | + + + | Home Phone | | + + + | Preferred Language | Unknown | + + + | Marital Status | | + + + | Jainism Affiliation | Unknown | + + + | Race | White | + + + | Ethnic Group | Not or | + + + Author + + + | Author | [facility] | + + + | Organization | [facility] | + + + | Address | Unknown | + + + | Phone | Unavailable | + + + Support + + +---------+ + | Name | Relationship | Address | Phone | + + +---------+ + | Sandy Zamora | ECON | Unknown | | + + +---------+ + Care Team Providers + +------+ + | Care Box Cutter Name | Role | Phone | + +------+ + | Jerome Ray MD | PCP | | + +------+ + Encounter Details +--------+ + + + + | Date | Type | Department | Care Team | Description | +--------+ + + + + | 09/06/ | Document-Sc | UNKNOWN DEPARTMENT | Unknown . | | | 2016 | anned | [address] | | | | | [address] | | | | | | [place], [place] | | | | | | [address] | | | +--------+ + + + + Social History + +-------+ +--------+------+ | Tobacco Use | Types | Packs/Day | Years | Date | | | | | Used | | + +-------+ +--------+------+ | Never Assessed | | | | | + +-------+ +--------+------+ + + + | Sex Assigned at | Date Recorded | | | | + + + | Not on file | | + + + + + + + | Job Start Date | Occupation | Industry | + + + + | Not on file | Not on file | Not on file | + + + + + + + + | Travel History | Travel Start | Travel End | + + + + + + | No recent travel history available. | + + documented as of this encounter Plan of Treatment Not on filedocumented as of this encounter Procedures + +--------+ + + + | Procedure Name | Priori | Date/Time | Associated Diagnosis | Comments | | | ty | | | | + +--------+ + + + | RADIOLOGY | | 09/07/2015 | | Results for this | | | | 12:00 AM | | procedure are in the | | | | PDT | | results section. | + +--------+ + + + documented in this encounter Results RADIOLOGY (09/07/2015 12:00 AM PDT) + + + | Narrative | Performed At | + + + | | | + + + documented in this encounter Visit Diagnoses Not on filedocumented in this encounter"
--- OUTSIDE RECORDS SUMMARY | ~2019-12-09 | XMS | Encounter Summary ---
Demographics + + + | Address | [address] | | | [place] [address] | + + + | Home Phone | | + + + | Preferred Language | Unknown | + + + | Marital Status | | + + + | Restorationist Affiliation | 1041 | + + + | Race | Unknown | + + + | Ethnic Group | Unknown | + + + Author + + + | Author | [facility] | | | [facility] [place] | + + + | Organization | [facility] | | | [facility] [place] | + + + | Address | Unknown | + + + | Phone | Unavailable | + + + Support + + + + + | Name | Relationship | Address | Phone | + + + + + | Lesia Castnaeda | ECON | [address] | | | | | [place] [address] | | + + + + + | Rosina Castaneda | ECON | Unknown | | + + + + + | Sandy Zamora | ECON | [address] | | | | [place] | | | | | [address] | | + + + + + Care Team Providers + +------+ + | Care Land Acquisition Analyst Name | Role | Phone | + +------+ + | Jerome Ray | PCP | | | MD | | | + +------+ + Reason for Visit Diagnostic/Screening (Routine) +--------+--------+ + + + + | Status | Reason | Specialty | Diagnoses / | Referred By | Referred To | | | | | Procedures | Contact | Contact | +--------+--------+ + + + + | Closed | | Radiology | Diagnoses | [place], | [facility] | | | | | Right hip | Maxi Morley MD | Medicine | | | | | pain | [address] | [address] | | | | | Procedures | [address] | [place], | | | | | [place] Bone Scan | [place] | [place] | | | | | 3 Phase | [address] | [address] | | | | | | Phone: | Phone: | | | | | | [phone] | [phone] | | | | | | Fax: | Fax: | | | | | | [phone] | [phone] | +--------+--------+ + + + + Encounter Details +--------+ + + + + | Date | Type | Department | Care Team | Description | +--------+ + + + + | 05/14/ | Hospital | [facility] | Maxi Zamora MD | | | 2019 | Encounter | [facility] | [facility] | | | | MEDICINE [address] | [place] | | | | | [address] [place], | [address] | | | | | [place] [address] | [phone] | | | | | [phone] | | | +--------+ + + + + Social History + +-------+ +--------+ + | Tobacco Use | Types | Packs/Day | Years | Date | | | | | Used | | + +-------+ +--------+ + | Former Smoker | | | | Quit: 05/26/1965 | + +-------+ +--------+ + + +---+---+---+ | Smokeless Tobacco: | | | | | Never Used | | | | + +---+---+---+ + + +---------+ + | Alcohol Use | Drinks/Week | oz/Week | Comments | + + +---------+ + | Yes | 0 Standard drinks | 7.0 | | | | or equivalent 7 | | | | | Glasses of wine | | | + + +---------+ + + + + | Sex Assigned at | Date Recorded | | | | + + + | Not on file | | + + + documented as of this encounter Medications at Time of Discharge + + + +---------+ + + | Medication | Sig | Dispensed | Refills | Start | End Date | | | | | | Date | | + + + +---------+ + + | atorvaSTATin | Take 20 mg by mouth | | 0 | 05/16/20 | | | (LIPITOR) 20 mg | nightly. | | | 18 | | | tablet | | | | | | + + + +---------+ + + | aspirin 81 mg | Take 81 mg by mouth | | 0 | | | | chewable tablet | Daily. | | | | 0 | + + + +---------+ + + documented as of this encounter Plan of Treatment +--------+---------+ + + + | Date | Type | Specialty | Care Team | Description | +--------+---------+ + + + | 02/01/ | Office | Cardiology | Jazlyn Almeida, | | | 2019 | Visit | | MD Vikram RICARDO | | | | | | [place] | | | | | | [address] | | | | | | | | +--------+---------+ + + + documented as of this encounter Procedures + +--------+ + + + | Procedure Name | Priori | Date/Time | Associated Diagnosis | Comments | | | ty | | | | + +--------+ + + + | NM BONE SCAN 3 PHASE | Routin | 05/14/2019 | Right hip pain | Results for this | | | e | 3:23 PM | | procedure are in the | | | | PST | | results section. 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 Dictated and Signed by: Demond James MD | | | Electronically signed: 05/14/2019 3:44 PM | | + + + + + + | Narrative | Performed At | + + + | EXAM:NM BONE SCAN 3 PHASE CLINICAL HISTORY: RIGHT HIP PAIN | [facility] | | COMPARISON: 01/13/2008. TECHNIQUE: Blood flow and blood pool | | | imaging is performed followed by 3 hour delayed whole body imaging | | | following the intravenous administration of 26 millicuries of | | | technetium 99m MDP. FINDINGS: Blood flow: Symmetric blood | | | flow in the hips and legs. Blood pool: Symmetric blood pool in the | | | hips and legs. Delayed: There is a small focus of increased | | | activity at the distal tip of the femoral stem. There is a | | | small focus asymmetric activity near the base of the right superior | | | pubic ramus and anterior acetabulum. No abnormal activity | | | associated with the knee arthroplasties. Bilateral degenerative | | | changes in the hands and wrists, greater on the left at the thumb | | | base. There is stable activity that projects anterior to the left | | | sacrum. 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 There is | | | absent activity in the left renal fossa, unchanged. | | + + + + + | Procedure Note | + + | Jhon, Rad Results In - 05/14/2019 3:47 PM PST EXAM:NM BONE SCAN 3 PHASE | | | | CLINICAL HISTORY: RIGHT HIP PAIN | | | | COMPARISON: 01/13/2008. | | | | TECHNIQUE: Blood flow and blood pool imaging is performed followed by 3 hour | | delayed whole body imaging following the intravenous administration of 26 | | millicuries of technetium 99m MDP. | | | | FINDINGS: | | | | Blood flow: Symmetric blood flow in the hips and legs. | | | | Blood pool: Symmetric blood pool in the hips and legs. | | | | Delayed: | | | | There is a small focus of increased activity at the distal tip of the femoral | | stem. | | | | There is a small focus asymmetric activity near the base of the right superior | | pubic ramus and anterior acetabulum. | | | | No abnormal activity associated with the knee arthroplasties. | | | | Bilateral degenerative changes in the hands and wrists, greater on the left at | | the thumb base. | | | | There is stable activity that projects anterior to the left sacrum. 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 | | | | There is absent activity in the left renal fossa, unchanged. 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 | | | | Dictated and Signed by: Demond James MD | | Electronically signed: 05/14/2019 3:44 PM | + + + +---------+ + + | Performing | Address | City/State/Zipcode | Phone Number | | Organization | | | | + +---------+ + + | [facility] | | | | + +---------+ + + documented in this encounter Visit Diagnoses Not on filedocumented in this encounter"
--- OUTSIDE RECORDS SUMMARY | ~2019-12-09 | XMS | Encounter Summary ---
Demographics + + + | Address | [address] | | | [place] [address] | + + + | Home Phone | | + + + | Preferred Language | Unknown | + + + | Marital Status | | + + + | Methodist Affiliation | 1041 | + + + | Race | Unknown | + + + | Ethnic Group | Unknown | + + + Author + + + | Author | [facility] | | | [facility] [place] | + + + | Organization | [facility] | | | [facility] [place] | + + + | Address | Unknown | + + + | Phone | Unavailable | + + + Support + + + + + | Name | Relationship | Address | Phone | + + + + + | Lesia Castaneda | ECON | [address] | | | | | [place] [address] | | + + + + + | Rosina Castaneda | ECON | Unknown | | + + + + + | Sandy Zamora | ECON | [address] | | | | [place] | | | | | [address] | | + + + + + Care Team Providers + +------+ + | Care Hand Engraver Name | Role | Phone | + +------+ + | Jerome Ray | PCP | | | MD | | | + +------+ + Encounter Details +--------+ + + + + | Date | Type | Department | Care Team | Description | +--------+ + + + + | 03/29/ | Hospital | [facility] | Demond Castellon | | | 2012 - | Encounter | MED CTR CANCER | MD [address] | | | | | [address] | [facility] | | | 04/24/ | | [place] | [place] [address] | | | 2012 | | [address] | [phone] | | | | | [phone] | | | +--------+ + + + [...] 02/01/ | Office | Cardiology | Jazlyn lAmeida, | | | 2020 | Visit | | MD Vikram RICARDO | | | | | | [place] | | | | | | [address] | | | | | | | | +--------+---------+ + + + documented as of this encounter Visit Diagnoses Not on filedocumented in this encounter"
--- OUTSIDE RECORDS SUMMARY | ~2019-12-09 | XMS | Clinical Summary ---
Demographics + + + | Address | [address] | | | [place] [address] | + + + | Home Phone | | + + + | Preferred Language | Unknown | + + + | Marital Status | | + + + | Nondenominational Affiliation | Unknown | + + + | Race | White | + + + | Ethnic Group | Not or | + + + Author + + + | Author | [facility] | + + + | Organization | [facility] | + + + | Address | Unknown | + + + | Phone | Unavailable | + + + Support + + +---------+ + | Name | Relationship | Address | Phone | + + +---------+ + | Sandy Zamora | ECON | Unknown | | + + +---------+ + Care Team Providers + +------+ + | Care International Accounting Manager Name | Role | Phone | + +------+ + | Jerome Ray MD | PCP | | + +------+ + Source Comments DAVID is fully live on both [facility] Allergies No Known Allergies Medications + + + +---------+------+------+-------+ | Medication | Sig | Dispensed | Refills | Star | End | Statu | | | | | | t | Date | s | | | | | | Date | | | + + + +---------+------+------+-------+ | aspirin EC 81 mg | 81 mg. | | 0 | | | Activ | | oral tablet,delayed | | | | | | e | | release (DR/EC) | | | | | | | + + + +---------+------+------+-------+ | cyanocobalamin | Take by mouth. | | 0 | | | Activ | | 1,000 mcg oral | | | | | | e | | tablet | | | | | | | + + + +---------+------+------+-------+ | clopidogrel 75 mg | 75 mg. | | 0 | | | Activ | | oral tablet | | | | | | e | + + + +---------+------+------+-------+ | atorvastatin 80 mg | Take 80 mg by mouth | | 0 | | | Activ | | oral tablet | once daily. | | | | | e | + + + +---------+------+------+-------+ | Cholecalciferol, | Take 5,000 Units by | | 0 | | | Activ | | Vitamin D3, 5,000 | mouth once daily. | | | | | e | | unit oral tablet | | | | | | | + + + +---------+------+------+-------+ | Multivitamins oral | Chew and swallow 1 | | 0 | | | Activ | | tablet,chewable | tablet once daily. | | | | | e | + + + +---------+------+------+-------+ Active Problems + + + | Problem | Noted Date | + + + | Chronic coronary artery disease | 10/05/2015 | + + + | Cerebrovascular accident (CVA) | 10/05/2015 | + + + | Low hemoglobin | 07/24/2015 | + + + | Gastrointestinal hemorrhage | 06/16/2015 | + + + | Unstable angina pectoris | 05/22/2015 | + + + | Anemia | 07/08/2014 | + + + | Adenocarcinoma of prostate | 10/06/2013 | + + + Social History + + + +--------+ + | Tobacco Use | Types | Packs/Day | Years | Date | | | | | Used | | + + + +--------+ + | Former Smoker | Cigarettes | 2 | 21 | Quit: 02/06/1966 | + + + +--------+ + + +---+---+---+ | Smokeless Tobacco: | | | | | Never Used | | | | + +---+---+---+ + + +---------+ + | Alcohol Use | Drinks/Week | oz/Week | Comments | + + +---------+ + | Yes | 1 Glasses of wine | 1.0 | | + + +---------+ + + [...] recent travel history available. | + + Last Filed Vital Signs + + + + + | Vital Sign | Reading | Time Taken | Comments | + + + + + | Blood Pressure | 125/63 | 09/29/2015 11:02 AM | | | | | PDT | | + + + + + | Pulse | 52 | 09/29/2015 11:02 AM | | | | | PDT | | + + + + + | Temperature | - | - | | + + + + + | Respiratory Rate | - | - | | + + + + + | Oxygen Saturation | - | - | | + + + + + | Inhaled Oxygen | - | - | | | Concentration | | | | + + + + + | Weight | 78 kg (172 lb) | 09/29/2015 11:02 AM | | | | | PDT | | + + + + + | Height | 185.4 cm (6' 1") | 09/29/2015 11:02 AM | | | | | PDT | | + + + + + | Body Mass Index | 22.69 | 09/29/2015 11:02 AM | | | | | PDT | | + + + + + Plan of Treatment + + + + + | Health Maintenance | Due Date | Last Done | Comments | + + + + + | Pneumococcal | | | | | vaccination (1 of 2 | 7 | | | | - PCV13) | | | | + + + + + | Influenza (Flu) | | | | | vaccination (#1) | 9 | | | + + + + + Results Not on filefrom Last 3 Months Insurance + +--------+ +--------+ + +--------+ | Payer | Benefi | Subscriber | Effect | Phone | Address | Type | | | t Plan | ID | malissa | | | | | | / | | Dates | | | | | | Group | | | | | | + +--------+ +--------+ + +--------+ | MEDICARE | MEDICA | xxxxxxxxxx | 11/23/18 | [phone] | [address] | [address] | | | RE A & | | [phone] | | | [address] | | sent | | [place] | | | | | | | | [address] | | + +--------+ +--------+ + +--------+ | | TRICAR | [phone] | | [phone] | | Indemn | | | E 4 | | 013-Pr | [phone] | | ity | | | LIFE | | esent | | | | + +--------+ +--------+ + +--------+ + +--------+ +--------+ + + | Guarantor Name | Accoun | Relation to | Date | Phone | Billing Address | | | t Type | Patient | of | | | | | | | | | | + +--------+ +--------+ + + | Demond Castaneda | Person | Self [birth year] | [address] | | | al/Fam | | 1931 | [phone] | [place] [address] | | | dominique | | | [address] (Home) | | + +--------+ +--------+ + +
--- OUTSIDE RECORDS SUMMARY | ~2019-12-09 | XMS | Encounter Summary ---
Demographics + + + | Address | [address] | | | [place] [address] | + + + | Home Phone | | + + + | Preferred Language | Unknown | + + + | Marital Status | | + + + | Rastafari Affiliation | [id number] | + + + | Race | Unknown | + + + | Ethnic Group | Unknown | + + + Author + + + | Author | [facility] | | | and [place] | + + + | Organization | [facility] | | | and [place] | + + + | Address | Unknown | + + + | Phone | Unavailable | + + + Support + + + + + | Name | Relationship | Address | Phone | + + + + + | Lesia Rose | ECON | [address] | | | | | [place] [address] | | + + + + + | Rosina Rose | ECON | Unknown | | + + + + + | Sandy Zamora | ECON | [address] | | | | [place] | | | | | [address] | | + + + + + Care Team Providers + +------+ + | 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 | Role | Phone | + +------+ + | Imer Boo MD | PCP | | + +------+ + Reason for Visit + + + | Reason | Comments | + + + | Hip Pain | | + + + | Foot Pain | | + + + Auth/Cert +--------+--------+ + + + + | Status | Reason | Specialty | Diagnoses / | Referred By | Referred To | | | | | Procedures | Contact | Contact | +--------+--------+ + + + + | | | | Diagnoses | | | | | | | Closed | | | | | | | fracture of | | | | | | | neck of | | | | | | | right femur, | | | | | | | initial | | | | | | | encounter | | | | | | | ([facility]) Hip | | | | | | | fracture, | | | | | | | right, | | | | | | | closed, | | | | | | | initial | | | | | | | encounter | | | | | | | ([facility]) | | | | | | | Coronary | | | | | | | artery | | | | | | | disease | | | | | | | involving | | | | | | | craig | | | | | | | coronary | | | | | | | artery of | | | | | | | craig heart | | | | | | | without | | | | | | | angina | | | | | | | pectoris | | | | | | | Anemia, | | | | | | | unspecified | | | | | | | type Closed | | | | | | | fracture of | | | | | | | neck of | | | | | | | right femur, | | | | | | | initial | | | | | | | encounter | | | | | | | ([facility]) | | | | | | | [[id number]] | | | | | | | | | | | | | | Procedures | | | | | | | HEMIARTHROPL | | | | | | | ASTY HIP | | | +--------+--------+ + + + + Encounter Details +--------+---------+ + + + | Date | Type | Department | Care Team | Description | +--------+---------+ + + + | 11/15/ | Surgery | [facility] | Rayo Anderson | Right | | 2016 | | [facility] | [address] | Hemiarthroplasty Hip | | | | [address] | [facility] | | | | | [place] | [place] [address] | | | | | [address] | [phone] | | | | | [phone] | | | +--------+---------+ + + + Social History + +-------+ [...] + + +---------+ + | Yes | 2 Glasses of wine | 2.0 | | | | 0 Standard drinks | | | | | or equivalent | | | + + +---------+ + + + + | Sex Assigned at | Date Recorded | | | | + + + | Not on file | | + + + documented as of this encounter Last Filed Vital Signs + + + + + | Vital Sign | Reading | Time Taken | Comments | + + + + + | Blood Pressure | 153/71 | 11/16/2015 6:00 PM | | | | | PDT | | + + + + + | Pulse | 58 | 11/16/2015 6:13 PM | | | | | PDT | | + + + + + | Temperature | 37.2 C (99 F) | 11/16/2015 6:00 PM | | | | | PDT | | + + + + + | Respiratory Rate | 16 | 11/16/2015 6:00 PM | | | | | PDT | | + + + + + | Oxygen Saturation | 100% | 11/16/2015 6:13 PM | | | | | PDT | | + + + + + | Inhaled Oxygen | - | - | | | Concentration | | | | + + + + + | Weight | 87.1 kg (192 lb) | 11/16/2015 12:37 PM | | | | | PDT | | + + + + + | Height | 185.4 cm (6' 0.99") | 11/16/2015 12:37 PM | | | | | PDT | | + + + + + | Body Mass Index | 25.34 | 11/16/2015 12:37 PM | | | | | PDT | | + + + + + documented in this encounter Discharge Summaries Keith Martinez MD - 11/19/2015 2:46 PM PDT [facility] DISCHARGE SUMMARY Pt. Name/Age/: Dena Rose 84 y.o. 1930 Date of Admission: 11/16/2015 Date of Discharge: 11/19/2015 Admitting Physician: Rayo Anderson MD Primary Care Provider: Imer Boo MD Discharging Physician: Keith Martinez MD DISCHARGE DIAGNOSES: Active Hospital Problems Diagnosis Closed right hip fracture, initial encounter CA prostate, adenoca S/P coronary artery stent placement chronic anemia, etiology unclear Resolved Hospital Problems Diagnosis No resolved problems to display. DISCHARGE MEDICATIONS: Current Facility-Administered Medications: acetaminophen 650 mg Oral Q6H PRN aspirin 81 mg Oral Daily atorvaSTATin 80 mg Oral Nightly bisacodyl 10 mg Rectal Daily PRN calcium carbonate 1,000 mg Oral Q2H PRN clopidogrel 75 mg Oral Daily docusate sodium 200 mg Oral BID HYDROmorphone 0.25-1 mg Intravenous Q2H PRN lactulose 30 mL Oral Daily PRN menthol throat lozenges 1 lozenge Buccal Q2H PRN ondansetron 4 mg Intravenous Q6H PRN oxyCODONE 5 mg Oral Q3H PRN pantoprazole 40 mg Oral QAM AC phenol 1-2 spray Mouth/Throat Q3H PRN polyethylene glycol 17 g Oral Daily PRN senna 8.6 mg Oral BID PRN niferex 150 Oral 1 pill daily for 30 days DISCHARGE INSTRUCTIONS: PENDING RESULTS: HOSPITAL COURSE: Please refer to the H&P for full details. In short this 84-year-old male had a right hip f racture on the day of admission after his horse stepped on his foot and he fell backwards. His history is remarkable for coronary artery disease with a stent placed in 2014, a hist ory of prostate cancer, and a history of chronic anemia which is currently being followed by Dr. Castellon. The patient was admitted and taken to the operating room where he underwent operative repai r of a femoral neck fracture with placement of an endoprosthesis. The patient required a to guanako of 4 units of red blood cells to treat anemia noting his baseline hematocrit on presenta tion was 25.9. Patient on the day of discharge has a hematocrit of 27.7. He had been treat ed with combination of aspirin and Plavix for his coronary stent and Plavix was discontinued because of the duration of time from stenting and need for surgery but aspirin is being con tinued at 81 mg daily. The patient had a transferrin saturation of 10% postoperatively and he was given 200 mg of IV iron sucrose and will be treated with Niferex 150 one daily for an other 30 days noting that he is chronically followed by Dr. Castellon. Patient has been ev aluated by occupational and physical therapy and at the time of discharge will be transferre d to inpatient rehab for further therapies prior to returning home. PHYSICAL EXAM: Temp: 37.6 C (99.7 F), Pulse: 84, Resp: 20, BP: 124/59 mmHg, SpO2 96 % on room air at f low rate 1L/min Temp Min: 37.6 C (99.7 F) Max: 38.8 C (101.8 F) Weight: 87.091 kg (192 lb) Patient seen and examined by me on discharge day Less than 30 minutes were spent on discharge and coordination of post-hospital care. Electronically signed by: Keith Martinez MD, 11/19/2015 14:46 [facility] Portions of this chart may have been created with Qt Software voice recognition software. Occasi onal wrong-word or sound-alike substitutions may have occurred due to the inherent epperson itations of voice recognition software. Please read the chart carefully and recognize, using context, where these substitutions have occurred documented in this encounter Medications at Time of Discharge + + + +---------+ + + | Medication | Sig | Dispensed | Refills | Start | End Date | | | | | | Date | | + + + +---------+ + + | acetaminophen | Take 1,000 mg by | | 0 | | | | (TYLENOL) 500 mg | mouth Daily. Takes | | | | 9 | | tablet | every am | | | | | + + + +---------+ + + | aspirin 81 mg | Take 81 mg by mouth | | 0 | | | | chewable tablet | Daily. | | | | 0 | + + + +---------+ + + | atorvaSTATin | Take 20 mg by mouth | | 0 | | | | (LIPITOR) 80 MG | nightly. | | | | 9 | | tablet | | | | | | + + + +---------+ + + | celecoxib | Take 200 mg by mouth | | 0 | | | | (CELEBREX) 200 mg | Daily. | | | | 6 | | capsule | | | | | | + + + +---------+ + + | cholecalciferol | Take 1 capsule by | 30 | 2 | 10/14/19 | | | 5000 UNITS | mouth Daily. | capsule | | 14 | 9 | | CAPSIndications: | | | | | | | Malignant neoplasm | | | | | | | of prostate (HCC) | | | | | | + + + +---------+ + + | clopidogrel | Take 75 mg by mouth | | 0 | | | | (PLAVIX) 75 mg | Daily. | | | | 9 | | tablet | | | | | | + + + +---------+ + + | cyanocobalamin | Take 500 mcg by | | 0 | | | | (VITAMIN B-12) 500 | mouth Daily. | | | | 9 | | mcg tablet | | | | | | + + + +---------+ + + | ergocalciferol | Take 50,000 Units by | | 0 | | | | (VITAMIN D-2) 50,000 | mouth Once a week. | | | | 7 | | units capsule | | | | | | + + + +---------+ + + | MULTIPLE VITAMIN | Take by mouth | | 0 | | | | PO | Daily. | | | | 9 | + + + +---------+ + + | oxyCODONE | Take 1 tablet by | 20 | 0 | 11/22/19 | | | (ROXICODONE) 5 mg | mouth every 3 hours | tablet | | 16 | 9 | | tablet | as needed for Pain. | | | | | + + + +---------+ + + documented as of this encounter Progress Rayo Borges MD - 11/19/2015 11:18 AM PDTOrtho: Hospitalist note reviewed Mild pain with movement Dressing intact and only mild swelling Continue PT increasing activity as tolerated. Keith Peña MD - 11/18/2015 12:[address] [facility] PM Hospitalist Progress Note Dena Rose is a 84 y.o. male ASSESSMENT and PLAN: 1. Postoperative anemia Patient is receiving 2 units of packed red blood cells. He has had a chronic anemia is parveen ng evaluated by Dr. Castellon including bone marrow biopsy. In September he had a transferrin sa turation of 22% but with blood loss will likely need iron therapy. I'm going to repeat his iron values realizing this will be post 4 unit transfusion will give at least 200 mg of IV i jenniffer sucrose eating for the iron studies to return. I'll also check his B12 and folate notin g we do not have records of those values. 2. Hip fracture The patient is status post repair with the plan of being transferred to acute rehab once he is clinically stable with respect to bleeding. 3. Coronary artery disease status post stenting Patient is on aspirin 81 mg daily noting his stent was placed in April 2014 we'll contin ue off Plavix for now. SUBJECTIVE: Patient reports weakness and fatigue associated with his hematocrit of 21. He denies eris sea or uncontrolled pain. VITALS: Temp: 37.9 C (100.2 F), Pulse: 80, Resp: 20, BP: 142/62 mmHg, SpO2 90 % on room air at flow rate 1L/min Temp Min: 37.4 C (99.3 F) Max: 38.3 C (100.9 F) Weight: 87.091 kg (192 lb) Intake/Output Summary (Last 24 hours) at 11/18/15 1256 Last data filed at 11/18/15 1133 Gross per 24 hour Intake 1320 ml Output 1755 ml Net -435 ml PHYSICAL EXAM: Cardiovascular: Regular rate and rhythm Respiratory: Clear laterally Abdomen: Soft without tenderness Extremities: Examination of the right lower extremity does not show a significant amount of swelling at the surgery site DIAGNOSTIC STUDIES: Available data and images were reviewed personally. Significant results and findings are a ddressed here or in the Assessment and Plan. Lab Results Component Value Date HGB 7.4* 11/18/2015 HCT 21.7* 11/18/2015 PLT 160 11/16/2015 WBC 4.5 11/16/2015 Lab Results Component Value Date NA 140 11/18/2015 K 4.0 11/18/2015 CL 107 11/18/2015 CO2 26 11/18/2015 CREA 1.22 11/18/2015 BUN 23* 11/18/2015 CRP 27.2* 02/16/2013 No results found for: POCGLU No results found for: POCGLU Xr Chest Ap Portable 11/16/2015 XR CHEST AP PORTABLE. 11/16/2015 1:33 PM HISTORY: HIP PAIN FOOT PAIN . AMINA RISON: None available. FINDINGS: Heart size within normal limits for portable technique. There is calcification of the ectatic aorta. Otherwise unremarkable mediastinal contours. Lungs appear hyperinflated, with mild increase in lucency in the upper lung zones, right gre ater than left. Mild hazy opacification in the left midlung zone medially . Left-sided rib fractures, likely old . No pleural effusion or pneumothorax. No acute osseous or soft tis luanne abnormalities. IMPRESSION - Mild hazy opacification in the left midlung zone medially, nonspecific, possibly representing contusive change in the setting of trauma, versus atelec tasis, versus mild pneumonia. Patient may benefit from PA and lateral x-ray of the chest. 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 Dictated and Signed by : Nitish Graves MD Electronically signed: 11/16/2015 3:21 PM Fl C-arm Stats No Charge 11/16/2015 No Radiologist interpretation, please see Chart Review. Xr Hip Right 2-3 Views 11/17/2015 XR HIP RIGHT 2-3 VIEWS. 11/16/2015 8:34 PM HISTORY: intra op. COMPARISON: FINDINGS/IMPRESSION - Intraoperative fluoroscopic images demonstrate placement of r ight hip hemiarthroplasty prosthesis. Cannulated screws of the proximal left femur are also partly visualized. Please see operative report for further information. Dictated and Sign ed by: Nitish Graves MD Electronically signed: 11/17/2015 8:17 AM Xr Hip Right 2-3 Views 11/16/2015 XR HIP RIGHT 2-3 VIEWS. 11/16/2015 1:33 PM HISTORY: HIP PAIN FOOT PAIN. AMINA RISON: CT abdomen pelvis 07/28/2007 FINDINGS: There is a fracture through the right femoral neck, with some impaction at the fracture site. Right femoral head is appropriately situate d relative to the acetabulum, with degenerative change at the right hip. Three cannulated s crews seen in the proximal left femur, without evidence of residual fracture. Degenerative change seen at the left hip, including some medial joint compartment narrowing. Metallic se eds superimposed over the expected location of the prostate, compatible with prior brachial therapy. Degenerative change seen symmetrically at bilateral SI joints. There is appearanc e of osteopenia. Unremarkable overlying soft tissues. IMPRESSION - Fracture through the r ight femoral neck, with some impaction at the fracture site. Degenerative changes at both hi ps, compatible with osteoarthritis. Prior instrumentation at the left proximal femur, withou t evidence of residual fracture or hardware complication. Dictated and Signed by: Nitish nuñez MD Electronically signed: 11/16/2015 3:14 PM Total time of approximately 25 minutes was spent with the patient and/or patient's family, and/or on the patient's floor/unit, of which more than 50% was spent counseling and/or coord ination the patient's care as outlined above. Keith Martinez 11/18/2015 12:56 [facility] Portions of this chart may have been created with Qt Software voice recognition software. Occasi onal wrong-word or sound-alike substitutions may have occurred due to the inherent epperson itations of voice recognition software. Please read the chart carefully and recognize, using context, where these substitutions have occurred Rayo Prather MD - 11/18/2015 10:21 AM PDTOrtho: Feeling very weak Dressing intact Mild swelling...thigh doesn't look distended NVM intact HGB 7.4 Ordered 2 units of packed cells and discussed with Hospitalist. Tejal Carter MD - 11/17/2015 1:04 PM PDT [facility] HOSPITALIST PROGRESS NOTE PATIENT NAME: Dena Rose AGE: 84 y.o. DATE OF SERVICE: 11/17/2015 SUBJECTIVE: No chest pain, no shortness of breath. No new complaints. States walked twice w ith therapy today. Verbalizes that he thinks it is helpful and he did it with his last surge ry. OBJECTIVE: VITAL SIGNS FOR LAST 24 HOURS: Temp: [36.3 C (97.3 F)-37.6 C (99.7 F)] 37.6 C (9 9.7 F) Pulse: [53-78] 78 Resp: [10-21] 18 BP: (103-153)/(54-84) 118/56 mmHg INTAKE/OUTPUT THIS SHIFT: Intake/Output Summary (Last 24 hours) at 11/17/15 1304 Last data filed at 11/17/15 1022 Gross per 24 hour Intake 3732 ml Output 1895 ml Net 1837 ml EXAM: WDWN NAD Lungs: clear no wheeze Heart: RRR Abd: soft, non tender Extr: stable post op change right LE, neurovasc int. No edema MEDICATIONS REVIEWED: aspirin 81 mg Oral Daily atorvaSTATin 80 mg Oral Nightly ceFAZolin (ANCEF, KEFZOL) IV 1 g Intravenous 4 times per day clopidogrel 75 mg Oral Daily docusate sodium 200 mg Oral BID pantoprazole 40 mg Oral QAM AC LABORATORY REVIEWED INCLUDING: Lab Results Component Value Date WBC 4.5 11/16/2015 HGB 8.4* 11/17/2015 HCT 24.5* 11/17/2015 Lab Results Component Value Date CREA 1.15 11/17/2015 BUN 23* 11/17/2015 NA 142 11/17/2015 K 4.7 11/17/2015 CL 110* 11/17/2015 CO2 27 11/17/2015 ASSESSMENT AND PLAN: Active Hospital Problems Diagnosis Closed right hip fracture, initial encounter CA prostate, adenoca S/P coronary artery stent placement Low hemoglobin Resolved Hospital Problems Diagnosis No resolved problems to display. Plan: continue to monitor chronic anemia, patient lives out of town and has good prognosis, likely would benefit from acute rehab. Care per Dr. Anderson. DATE/TIME: 11/17/2015 13:04 SIGNED: Tejal Altamirano MD Portions of this chart may have been created using Qt Software voice recognition software. Occas ional wrong-word or "sound alike" substitutions may have occurred due to the inherent limita tions of voice recognition software. Please read chart carefully and recognize using context where these substitutions have occurred.Electronically signed by Tejal Altamirano MD at 1:07 PM Bharat Cortez, PharmD - 11/16/2015 2:41 PM PDTFormatting of this n ote might be different from the original. PHARMACY SERVICES: ADMISSION MEDICATION REVIEW Dena Rose is a 84 y.o. male admitted on 11/16/2015 12:31 Patient is a reliable historian. Patient s prior to admit medication and over the counter (OTC) medications/herbal supplem ents list obtained from: [x] Verbal interview (patient is able to recall drug name, strength, frequency, etc.) [] Patient/family member provided a complete current medication list or bottles [] MAR from [facility] facility: [] Doctor's office: [] Pharmacy list names if received from multiple pharmacies: [] [employer] insurance reported information [] Care Everywhere [] Other sources: Vaccines up to date? Yes No Unsure Influenza [x] patients states sometime Fall of 2014 [] [] Pneumococcal [] [] [x] Tdap [] [] [x] Shingles [x] patients states sometime Fall 2014 [] [] Noted medications discrepancies or medication-related issues: Medication added: Celecoxib 200 mg PO daily Other: [facility] is main pharmacy now [facility] in [place] is used for vitamins and anything that needs to be acquired emerge ntly Medication review performed and electronically signed by Bharat De Leon PHARMD 14:42 document ed in this encounter H&P Notes Rayo Anderson MD - 11/16/2015 4:25 PM PDT [address] [address] HISTORY AND PHYSICAL RAYO ANDERSON MD Patient: DENA ROSE Admitting: RAYO ANDERSON MR #: [id number] LOC: PT TYPE: Adm Date: 11/16/2015 : 1930 DATE: 11/16/2015 HISTORY: The patient is an 84-year-old male who 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 His new horse stepped on his foot and he tripped and fell, injuring his right h ip. He noted immediate pain in the hip, however, was unable to flag down any help for appr oximately an hour. He was then brought to the emergency room at [facility] where x-rays r evealed an intracapsular hip fracture, which is displaced. He is admitted for surgical car e. PAST MEDICAL HISTORY: Coronary artery disease for which he had a coronary stent placed in 06/2014. He had a left hip fracture with repair with cannulated screws. He is not certai n exactly how many years ago, it was several years, from which he has recovered without di fficulty and has returned to being very active on a regular basis. He denies lung problems . No liver disease. No diabetes. No tuberculosis. No bleeding disorders.He has a history of chronic anemia. Also a history of prostate cancer. CURRENT MEDICATIONS: Plavix. Aspirin. Occasional Celebrex. REVIEW OF SYSTEMS: Negative other than for his recent injury. PHYSICAL EXAMINATION: GENERAL: Reveals a well-developed, well-nourished male who is well oriented to person, pl huong and time. VITAL SIGNS: Temperature 97.4, pulse 58, respirations 12, blood pressure is 130/64, O2 sa turations were 100 percent on room air, weight is 192 pounds. HEENT: Head normocephalic without lesions. Eyes: Pupils equal, round and reactive to li ght. Extraocular muscles intact. Ears, nose, and throat within normal limits, without tra nancy. HEART: Regular rate and rhythm without murmurs. CHEST: Clear to auscultation. Good expansion bilaterally. ABDOMEN: Soft, flat, nontende r, no masses or organomegaly. EXTREMITIES: Essentially within normal limits for his age wi th good range of motion, strength, and sensation, circulation in both upper extremities an d in the left lower extremity. Right lower extremity: There is marked discomfort to any at tempts at range of motion. Sensation, circulation and motor control are intact. RADIOGRAPHS: X-rays show a displaced intracapsular fracture of the right hip. PLAN: The patient is admitted for surgical care. We have discussed options at some lengt h. We will plan to do a hemiarthroplasty. We discussed the procedure along with possible complications, including infection, leg length discrepancy, instability with possible disl ocations, wearing out or loosening of the components long term care social worker, etc. He also understands th e possibilities of anesthetic or medical complications. We have discussed the fact that wi th him on Plavix and aspirin he has an increased risk for bleeding and since he is starting with a low hemoglobin he will more likely than not need a blood transfusion. He understan ds. He states he has no further questions and consents to the surgical procedure. RAYO ANDERSON MD Dictated by RAYO ANDERSON MD 11/16/2015 16:25:37 Transcribed on 11/16/2015 17:09:35 by job# [id number] Confirmation #: [id number] cc: IMER DENA BOO documented in this encounter Consult Notes Selma Zayas RN - 11/17/2015 12:09 PM PDTOrder received for acute rehab consult. Await ing therapy evaluations to be completed before making a recommendation on rehab services; IP R will follow progress. Thank you for this referral. Electronically signed by: Selma Mccabe am, RN CRRN 11/17/2015 12:09 asch, Tejal Perez MD - 11/16/2015 3:[address] [facility] PMG Hospitalist Consult Note Pt. Name/Age/: Dena Rose 84 y.o. 1930 Date of admission: 11/16/2015 Date of Consultation: 11/16/2015 Physician requesting consult: Keanu Hester MD Reason for Consult: Pre op evaluation requested by Dr. Anderson for right hip fracture ASSESSMENT and PLAN: Principal Problem: Closed right hip fracture, initial encounter Active Problems: CA prostate, adenoca Low hemoglobin S/P coronary artery stent placement Plan: benefit outweighs risk for orthopedic treatment of acute hip fracture, patient denies angina, stent was placed in 2013, currently on ASA and Plavix so will need blood bank richa ng and likely transfusion of packed cells, platelets, plasma PRN, orders to be written by or tho attending HISTORY OF PRESENT ILLNESS: This is an 84 y.o. male with a history of backwards ground level fall after his right foot was stepped on by his horse. He denies headache, chest pain, LOC etc. He does have pain of h is right hip and knee and requests not to have a lamas placed if possible. 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 Final decision making per ortho mady, b lood bank products as needed- patient agreeable to transfusions as needed. PAST MEDICAL and SURGICAL HISTORY: Past Medical History Diagnosis Date Carotid stenosis Femur fracture, left (HCC) Basal cell carcinoma of skin Actinic keratosis Eczema Osteoarthritis Hearing loss wears hearing aids Pes planus Wears dentures full upper CAD (coronary artery disease) Anemia CVA (cerebral vascular accident) (HCC) H/O: facial fractures Fx eight/more rib-closed Past Surgical History Procedure Laterality Date Cath placement 05/23/15 Coronary artery stent 07/07/14 Left femur fracture repair Brachytherapy breast Egd and colonoscopy N/A 07/25/2015 Procedure: EGD / COLONOSCOPY; Surgeon: Dena More MD; Location: [facility] FAMILY HISTORY: family history is not on file. CAD SOCIAL HISTORY: reports that he quit smoking about 50 years ago. He has never used smokeless tobacco. He r eports that he drinks about 1.2 oz of alcohol per week. He reports that he does not use illi cit drugs. Wine every other night, one glass. No smoking since 1965. CURRENT MEDICATIONS: ALLERGIES: Allergies Allergen Reactions Sulfa Antibiotics Nausea And Vomiting REVIEW OF SYSTEMS: Positive for right hip and leg pain. A complete 10-system review was otherwise negative ex cept as noted in the HPI. VITAL SIGNS: Temp: 36.2 C (97.2 F), Pulse: 58, Resp: 10, BP: 129/62 mmHg, SpO2 100 % on at flow ra te L/min Temp Min: 36.2 C (97.2 F) Max: 36.2 C (97.2 F) Weight: 87.091 kg (192 lb) PHYSICAL EXAMINATION: Gen Racquel - alert, cooperative and no distress Head - Normocephalic, without obvious abnormality, atraumatic Eyes - PERRL, conjunctiva/corneas clear ENT - mucous membranes moist Neck - supple Lungs - clear to auscultation, no wheezes or rales and unlabored breathing Heart - normal rate, regular rhythm, normal S1, S2, no murmurs, rubs, clicks or gallops Abdomen - soft, non-tender, without masses or organomegaly Extremities - no peripheral edema, no clubbing or cyanosis; RLE shortened and ext rotate d, pain with movement Skin - no rashes, RUQ healed scar Neurologic - Alert and oriented x 3. CN II-XII intact. DIAGNOSTIC STUDIES: Available data and images were reviewed personally. Significant results and findings are a ddressed here or in the Assessment and Plan. Lab Results Component Value Date HGB 8.7* 11/16/2015 HCT 25.9* 11/16/2015 PLT 160 11/16/2015 WBC 4.5 11/16/2015 Lab Results Component Value Date NA 145 11/16/2015 K 4.2 11/16/2015 CL 109 11/16/2015 CO2 26 11/16/2015 CREA 1.21 11/16/2015 BUN 27* 11/16/2015 CRP 27.2* 02/16/2013 No results found for: POCGLU No results found. Thank you very much for consulting us in the care of your patient. We will continue to fol low along. Total of 45 minutes were spent reviewing the chart on the floor, examining the patient, and discussing the plan of care. Dr. Anderson will plan to take him to OR tonight. Tejal Altamirano 11/16/2015 15:01 [facility] Portions of this chart may have been created with Qt [employer] voice recognition software. Occasi onal wrong-word or sound-alike substitutions may have occurred due to the inherent epperson itations of voice recognition software. Please read the chart carefully and recognize, using context, where these substitutions have occurred documented in this e ncounter ED Notes Keanu Hester MD - 11/16/2015 1:02 PM PDT Emergency Department Encounter NotE CHIEF COMPLAINT: Hip pain HPI Dena Rose is a 84 y.o. male who presents to the Emergency Department who is compla ining of right hip pain. He was working with a hoarse when the horse stepped on his foot an d he fell backwards injuring his right hip. He denies head injury. No loss conscious. No neck pain. No back pain. No abdominal pain. No chest pain. He's had a normal mental stat us. He's had previous femur fracture on the left. He's not been able to bear weight since the injury. He is not having pain in the foot where the horse stepped on them. He was brou ght in by medics noted to have a shortened and externally rotated leg. He received morphine prehospital. PAST MEDICAL & SURGICAL HISTORY Past Medical History Diagnosis Date Carotid stenosis Femur fracture, left ([facility]) Basal cell carcinoma of skin Actinic keratosis Eczema Osteoarthritis Hearing loss wears hearing aids Pes planus Wears dentures full upper CAD (coronary artery disease) Anemia CVA (cerebral vascular accident) ([facility]) H/O: facial fractures Fx eight/more rib-closed Past Surgical History Procedure Laterality Date Cath placement 05/23/15 Coronary artery stent 07/07/14 Left femur fracture repair Brachytherapy breast Egd and colonoscopy N/A 07/25/2015 Procedure: EGD / COLONOSCOPY; Surgeon: Dena More MD; Location: [facility] SOCIAL HISTORY: History Social History Marital Status: Spouse Name: N/A Number of Children: N/A Years of Education: N/A Social History Main Topics Smoking status: Former Smoker Quit date: 05/26/1965 Smokeless tobacco: Never Used Alcohol Use: 1.2 oz/week 2 Glasses of wine, 0 Standard drinks or equivalent per week Drug Use: No Sexual Activity: Not on file Other Topics Concern None Social History Narrative And as reviewed in nursing notes CURRENT MEDICATIONS Previous Medications ACETAMINOPHEN (TYLENOL) 500 MG TABLET Take 1,000 mg by mouth Daily. Takes every am ASPIRIN 81 MG CHEWABLE TABLET Take 81 mg by mouth Daily. ATORVASTATIN (LIPITOR) 80 MG TABLET Take 80 mg by mouth nightly. CHOLECALCIFEROL 5000 UNITS CAPS Take 1 capsule by mouth Daily. CLOPIDOGREL (PLAVIX) 75 MG TABLET Take 75 mg by mouth Daily. CYANOCOBALAMIN (VITAMIN B-12) 500 MCG TABLET Take 500 mcg by mouth Daily. ERGOCALCIFEROL (VITAMIN D-2) 50,000 UNITS CAPSULE Take 50,000 Units by mouth Once a wee k. MULTIPLE VITAMIN PO Take by mouth Daily. ALLERGIES Allergies Allergen Reactions Sulfa Antibiotics Nausea And Vomiting REVIEW OF SYSTEMS As in history of present illness. A 10 system of review was otherwise negative. PHYSICAL EXAM VITAL SIGNS: (first vital signs):Temp: 36.2 C (97.2 F) Pulse: 60 Resp: 16 SpO2: 94 % General: Alert, appears well, non toxic, GCS 15 HEENT: Normocephalic, atraumatic, OP clear, PERRL, EOMI Neck: supple, full range of motion, no tracheal deviation, no posterior tenderness Cardiovascular: Normal rate and rhythm, no murmurs, rubs or gallops Pulmonary: CTA bilateral, no wheeze/rhonci or resp distress Abdominal: Soft, non tender, no rebound or guarding Musculoskeletal: Focused exam of his right leg reveals externally rotated shortened, tender ness over the right hip, no femoral tenderness, no open wound, brisk cap refill, distal sens ation intact, 2+ dorsalis pedis pulse Neurologic: Alert, no cranial nerve deficits, no focal deficits Skin: warm and dry EKG Sinus rhythm, 62 bpm, some interventricular conduction delay, no acute ischemic changes LABS CBC unremarkable BMP unremarkable INR 1.18 PTT 39 IMAGING STUIDES (X-Rays interpreted by ED Physician) X-ray chest without acute X-ray right hip with sub capital fracture ASSESSMENT & ED COURSE: Patient here with fall. He has isolated fracture of the right hip. Does not appear to hav e other significant injury on examination. He is treated with some pain control here. I di scussed the case with Dr. Anderson of orthopedics. Labs are reassuring. EKG and chest x-ray unremarkable. Dr. Anderson requested internal medicine consult and discussed the case with the hospitalist. DISPOSITION: Admit FINAL IMPRESSION: Right hip fracture Keanu Hester MD 11/16/15 1511 documente d in this encounter Miscellaneous Notes Plan of Care - Meera Razo OT - 11/19/2015 3:25 PM PDTProblem: Patient Care Overview (Adult) Goal: Care Team Goals & Evaluation PROBLEM-RELATED GOALS: 1. Prevent post op hypoxia 2. Will meet 75% of predicted goal on Incentive Spirometer 5. Pt sensation will return to their baseline from the block place by 11/18/15. 6. Pt will achieve the pain score of 3/10 by 11/18/15. 9. Pt will be free of s/s of infection through 11/21/15. 10, Pt to be mod(I) with ADLs and functional transfers by 11/22/15 STRATEGY TO ACHIEVE GOALS: 1. Monitor saturations via oximetry every 4 hours. Titrate O2 as needed 2. Instruct patient in the use of Incentive Spirometry and/or deep breath and cough. Nursin g and Respiratory to work together to have patient use every hour while awake. Respiratory t o monitor progress 4 times daily until 75% goal met then turn over to nursing. 5. Assess sensation and strength Q 4 hrs and prn. Monitor circulation and pulse to right lo wer leg as ordered. Assist as needed, use FWW w/ all out of bed activity. Encourage ambulati on in room and sitting in chair for meals. 6. Assess pain Q 4 hr and prn. Medicate prn, re-assess pain 30-60 minutes after med and re- medicate prn. 9. Assess VS and temperature, dressing and lab work as directed. Notify w/ any concerns. -Pt. To participate in OT sessions with no enc. And be able to follow through with post-racquel taylor hip surgery. -Full participation in PT session in functional mobility training. RESTRAINT-RELATED GOALS: STRATEGIES TO ACHIEVE RESTRAINT GOALS: Occupational Therapy Daily Treatment Note Patient Information Patient Name: Dena Rose Date of : 1930 Age: 84 y.o. Precautions/Limitations: falls, right posterior hip precautions Left Upper Extremity Weight-Bearing: full weight-bearing Right Upper Extremity Weight-Bearing: full weight-bearing Left Lower Extremity Weight-Bearing: full weight-bearing Right Lower Extremity Weight-Bearing: weight-bearing as tolerated Start Time: 1430 Stop time: 1453 Time Calculation: 23 minutes Missed Treatment Time: 3 minutes Total Treatment Time: 20 minutes TimedTreatment Code Minutes: 20 minutes Frequency: 5 times/wk Subjective: I am going to go to rehab for 3 days or so before I go home. Education: Pt instructed in use of sock aid to apply both socks. Pt able to apply independ ent on left and min assist to remove rope from little toe on right . Treatment Provided: come to sit on edge of bed required mod assist. Instructed to roll to left side and come to sit. Discussion with pt and family re: use of tie mill operator for pants application hook of dressing sti ck for removal of socks. Patient Status/Goals Reflects last filed data of patient status; may be from multiple contributors. ADLs Pt seen for sock aid instruction. Discussion re use of tie mill operator for applying pants and ashlee ving socks LB, Level of [place]: (Pt able to apply both socks using sock aid.) STG Goals LB Dressing Goal, [place] Level: contact guard assist Adaptive Equipment: tie mill operator, dressing stick, sock-aid Time to Achieve: 2 - 3 days Goal Status: new LTG Goals FIM: Assessment: Pt demonstrated some confusion with family re: where the bed was in relation to the bathroom at home and what side of the bed he exited. Pt is more receptive to participa ting in in-patient rehab to better prepare for home independence. Occupational Therapy Anticipated Discharge Needs are: home with assist Have the anticipated discharge needs changed? no Post discharge occupational therapy recommendation: In pt rehab Plan for next treatment: 1-2P, GORMAN, educate in ADL equipment Electronically signed by: Meera Razo OT, 11/19/2015 15:16 lan of Care - Yolanda Voss, TRAINING DEVELOPMENT MANAGER - 11/19/2015 2:55 PM PDTProblem: Patient Care Overview (Adult) Goal: Care Team Goals & Evaluation PROBLEM-RELATED GOALS: 1. Prevent post op hypoxia 2. Will meet 75% of predicted goal on Incentive Spirometer 5. Pt sensation will return to their baseline from the block place by 11/18/15. 6. Pt will achieve the pain score of 3/10 by 11/18/15. 9. Pt will be free of s/s of infection through 11/21/15. 10, Pt to be mod(I) with ADLs and functional transfers by 11/22/15 STRATEGY TO ACHIEVE GOALS: 1. Monitor saturations via oximetry every 4 hours. Titrate O2 as needed 2. Instruct patient in the use of Incentive Spirometry and/or deep breath and cough. Nursin g and Respiratory to work together to have patient use every hour while awake. Respiratory t o monitor progress 4 times daily until 75% goal met then turn over to nursing. 5. Assess sensation and strength Q 4 hrs and prn. Monitor circulation and pulse to right lo wer leg as ordered. Assist as needed, use FWW w/ all out of bed activity. Encourage ambulati on in room and sitting in chair for meals. 6. Assess pain Q 4 hr and prn. Medicate prn, re-assess pain 30-60 minutes after med and re- medicate prn. 9. Assess VS and temperature, dressing and lab work as directed. Notify MD w/ any concerns. -Pt. To participate in OT sessions with no enc. And be able to follow through with post-racquel taylor hip surgery. -Full participation in PT session in functional mobility training. RESTRAINT-RELATED GOALS: STRATEGIES TO ACHIEVE RESTRAINT GOALS: Outcome: Improving Physical Therapy Daily Treatment Note Patient Information Patient Name: Dena Rose Date of : 1930 Age: 84 y.o. 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 PT Diagnosis: Impaired gait and balance, LE ms weakness, dec.activity tolerance Start Time: 1300 Stop time: 1344 Time Calculation: 44 minutes Missed Treatment Time: 0 minutes Total Treatment Time: 44 minutes TimedTreatment Code Minutes: 30 minutes Subjective: pt is visiting this pm with and daughter. Discussed with family IRF and h ow he would benefit from a short stay. and daughter in agreement. Objective: Treatment Provided: stair training with assist of 2 for safety, transfers from sit<>stand a nd bed mobility. Family present for tx. Education: inst to sit up for meals. Patient Status/Goals: Reflects last filed data of patient status; may be from multiple contributors. Gait Level of Point Roberts : verbal cues required, contact guard assist Assistive Device: 2 wheeled walker (FWW) Distance (feet): (60 feet) Gait Pattern Analysis: 3-point gait Gait Deviations: limb motion velocity decreased, step length decreased, stride length decre ased, [id number] clearance decreased Impairments: pain, ROM decreased Stairs (4) Number of Stairs: (4) Handrail Location: both sides Level of [place]: contact guard assist, verbal cues required, 2 person assist required Assistive Device: 2 wheeled walker (FWW) Technique Used: step to step (ascending) Safety Issues: (ROM L knee limited to 90 degrees) Impairments: pain, ROM decreased Transfers Bed-Chair, Level of [place]: minimum assist (75% patient effort), 2 person assist requ ired, verbal cues required Chair-Bed, Level of [place]: minimum assist (75% patient effort), verbal cues required , 2 person assist required [id number], Assistive Device: 2 wheeled walker (FWW) Sit-Stand, Level of [place]: verbal cues required, contact guard assist Stand-Sit, Level of [place]: verbal cues required, contact guard assist [id number], Assistive Device: 2 wheeled walker (FWW) Safety Issues: step length decreased Impairments: ROM decreased, pain, strength decreased, decreased flexibility Bed Mobility Assistive Device: bed rails Supine to Sit, Level of [place]: verbal cues required, contact guard assist Sit to Supine, Level of [place]: verbal cues required, minimum assist (75% patient eff ort) Safety Issues: decreased use of legs for bridging/pushing Impairments: pain, ROM decreased, decreased flexibility, strength decreased ROM L LE ROM: WFL R LE ROM: WFL, post hip precautions Strength L LE Strength: 4+/5 R LE Strength: hip flexion 2-/5, abd 2-/5, knee ext 3-/5, DF 4/5 STG GOALS Bed Mobility Goal, Activity Type: supine to sit/sit to supine Point Roberts Level: modified independence Time to Achieve: 3 days Goal Status: progressing toward goal Transfer Training Goal, Activity Type: bed to chair /chair to bed Point Roberts Level: modified independence Assistive Device: 2 wheeled walker (FWW) Time to Achieve: 3 days Goal Status: progressing toward goal Gait Training Goal, Point Roberts Level: supervision required Assistive Device: 2 wheeled walker (FWW) Distance: 50 Time to Achieve: 3 days Goal Status: progressing toward goal Stairs Goal, [place] Level: supervision required Assistive Device: cane (straight, single point) Number of Stairs: 5 Time to Achieve: 3 days Goal Status: progressing toward goal FIM: FIM Transfers Bed/Chair/Wheelchair: 4 Bed/Chair/WC Score Evidence: 4 Steadying FIM Locomotion Walk: 2 Distance Walked (feet): 50 feet Walk Score Evidence: 2 Pt 25-49% Effort/50-149ft FIM Modifier DC Locomotion: walk FIM Modifier Walk Distance: 2 50-149 feet Stairs: 2 Stairs Score Evidence: 2 4-6 Stairs w/Assist, Handrail Assessment: pt is not consistent with sit<>stand transfers. Pt has diff due to L knee not being able to flex beyond 90 degrees. Is doing good job sticking to his precautions. Will benefit from further PT for general strengthening, gt and transfers. Daughter and plea sed that pt is staying and transitioning to IRF. Physical Therapy Anticipated Discharge Needs are: inpatient rehabilitation facility Have the anticipated discharge needs changed? no Post discharge physical therapy recommendation: TBD Plan for next treatment: ,1p, transfers, gt and general mobility. R hip precautions. kg estevez work on sit<>stand transfers. Electronically signed by: Yolanda Mckinley PTA, 11/19/2015 14:45 lan of Care - Lauren June RN - 11/19/2015 11:05 AM PDTProblem: Patient Care Overview (Adult) Goal: Care Team Goals & Evaluation PROBLEM-RELATED GOALS: 1. Prevent post op hypoxia 2. Will meet 75% of predicted goal on Incentive Spirometer 5. Pt sensation will return to their baseline from the block place by 11/18/15. 6. Pt will achieve the pain score of 3/10 by 11/18/15. 9. Pt will be free of s/s of infection through 11/21/15. 10, Pt to be mod(I) with ADLs and functional transfers by 11/22/15 STRATEGY TO ACHIEVE GOALS: 1. Monitor saturations via oximetry every 4 hours. Titrate O2 as needed 2. Instruct patient in the use of Incentive Spirometry and/or deep breath and cough. Nursin g and Respiratory to work together to have patient use every hour while awake. Respiratory t o monitor progress 4 times daily until 75% goal met then turn over to nursing. 5. Assess sensation and strength Q 4 hrs and prn. Monitor circulation and pulse to right lo wer leg as ordered. Assist as needed, use FWW w/ all out of bed activity. Encourage ambulati on in room and sitting in chair for meals. 6. Assess pain Q 4 hr and prn. Medicate prn, re-assess pain 30-60 minutes after med and re- medicate prn. 9. Assess VS and temperature, dressing and lab work as directed. Notify MD w/ any concerns. -Pt. To participate in OT sessions with no enc. And be able to follow through with post-racquel taylor hip surgery. -Full participation in PT session in functional mobility training. RESTRAINT-RELATED GOALS: STRATEGIES TO ACHIEVE RESTRAINT GOALS: Outcome: Improving Goal Evaluation: 1. Maintaining RA mid 90's with no problems, 2. working on IS every 1-2 hrs. 5. CMS WNL. 6. Pain well controlled with po Tylenol. 9. No s/sx's infection. Aquacel CDI to rt hip. 3+ edema rt hip. 10. 2 person FWW and gait belt. He feels much weaker than usual. lan of Care - Yolanda Mkcnight, TRAINING DEVELOPMENT MANAGER - 11/19/2015 9:32 AM PDTProblem: Patient Care Overview (Adult) Goal: Care Team Goals & Evaluation PROBLEM-RELATED GOALS: 1. Prevent post op hypoxia 2. Will meet 75% of predicted goal on Incentive Spirometer 3. Pt will void within 6 hours of arriving to the floor post op. 4. Pt will tolerate solid food and PO pain med by 11/17/15. 5. Pt sensation will return to their baseline from the block place by 11/18/15. 6. Pt will achieve the pain score of 3/10 by 11/18/15. 7. Pt will ambulate on 11/17/15. 8. Pt will have a BM by 11/19/15. 9. Pt will be free of s/s of infection through 11/21/15. 10, Pt to be mod(I) with ADLs and functional transfers by 11/22/15 11. Pt will be Mod I in transfers and ambulation by 11/20/15. STRATEGY TO ACHIEVE GOALS: 1. Monitor saturations via oximetry every 4 hours. Titrate O2 as needed 2. Instruct patient in the use of Incentive Spirometry and/or deep breath and cough. Nursin g and Respiratory to work together to have patient use every hour while awake. Respiratory t o monitor progress 4 times daily until 75% goal met then turn over to nursing. 3. Offer toileting, use bed gorman at first, the BSC when able to stand and then encourage amb ulation to bathroom. If no void in 6 hours, then bladder scan pt and follow MD order for ass isting pt in emptying bladder. 4. Start pt on liquids on arrival to the floor, increase diet as tolerate. Once tolerating juice or solids, start pt on PO pain meds. 5. Assess sensation and strength Q 4 hrs and prn. Monitor circulation and pulse to right lo wer leg as ordered. Assist as needed, use FWW w/ all out of bed activity. Encourage ambulati on in room and sitting in chair for meals. 6. Assess pain Q 4 hr and prn. Medicate prn, re-assess pain 30-60 minutes after med and re- medicate prn. 7. Dangle pt and encourage ambulation once PT has cleared activity. Encourage ambulation to the bathroom. Use FWW and staff assist. Ambulate in the halls BID and prn as tolerated. Jenae edule CPM twice daily and prn. Give stool softener, Senna, and Miralax daily. If no BM by POD 2, use prn bowel meds until a BM is achieved. 8. Encourage water intake and mobility. Complete teaching to prevent const ipation. 9. Assess VS and temperature, dressing and lab work as directed. Notify MD w/ any concerns. -Pt. To participate in OT sessions with no enc. And be able to follow through with post-racquel taylor hip surgery. -Full participation in PT session in functional mobility training. RESTRAINT-RELATED GOALS: STRATEGIES TO ACHIEVE RESTRAINT GOALS: Outcome: Improving Physical Therapy Daily Treatment Note Patient Information Patient Name: Dena Rose Date of : 1930 Age: 84 y.o. 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 PT Diagnosis: Impaired gait and balance, LE ms weakness, dec.activity tolerance Start Time: 839 Stop time: 917 Time Calculation: 38 minutes Missed Treatment Time: 0 minutes Total Treatment Time: 38 minutes TimedTreatment Code Minutes: 30 minutes Subjective: pt is hoping to go home today. " I don"t want to stay another day here, people here." States he feels much better than yesterday. Discussed with pt the need for him to demonstrate ability to get into and oob, on/off chair, and stairs with very little assist prior to going home. Objective: Treatment Provided: bed mobility, sit<>stand transfers and gt training working on stride le ngth R and heel strike on right. There ex in bed and in sitting working on quad strength R and ROM to R hip in supine with assisted heel slides, ab/add. Education: inst to sit up for all meals and in the ex above to do frequently. Patient Status/Goals: Reflects last filed data of patient status; may be from multiple contributors. Gait Level of [place] : contact guard assist Assistive Device: 2 wheeled walker (FWW) Distance (feet): (50 feet) Gait Pattern Analysis: 3-point gait Gait Deviations: lizette decreased, limb motion velocity decreased, stride length decreased Impairments: ROM decreased, pain Stairs Transfers Max cuing to maintain post.hip precautions. Bed-Chair, Level of [place]: minimum assist (75% patient effort), 2 person assist requ ired, verbal cues required Chair-Bed, Level of [place]: minimum assist (75% patient effort), verbal cues required , 2 person assist required [id number]-Jzi, Assistive Device: 2 wheeled walker (FWW) Sit-Stand, Level of [place]: contact guard assist, verbal cues required Stand-Sit, Level of [place]: contact guard assist, verbal cues required Awn-Nuvad-Zep, Assistive Device: 2 wheeled walker (FWW) Safety Issues: weight-shifting ability decreased, step length decreased, steps too close fr ont assistive device Impairments: ROM decreased Bed Mobility Supine to Sit, Level of [place]: verbal cues required, contact guard assist Sit to Supine, Level of [place]: verbal cues required Safety Issues: decreased use of legs for bridging/pushing Impairments: decreased flexibility Wheelchair Mobility Balance Sitting Balance: Static: (G-) Sitting Balance: Dynamic: (G-) Standing Balance: Static: (P+) Standing Balance: Dynamic: (P+) Therapeutic Exercise Bed exercises: right, ankle pumps, quad sets, glut sets, hip abduction/adduction, heel slid es Repetitions: (12) Seated exercises: right, long arc quads Repetitions: (12) Functional Endurance ROM L LE ROM: WFL R LE ROM: WFL, post hip precautions Strength L LE Strength: 4+/5 R LE Strength: hip flexion 2-/5, abd 2-/5, knee ext 3-/5, DF 4/5 Coordination Vision Muscle Tone STG GOALS Bed Mobility Goal, Activity Type: supine to sit/sit to supine [place] Level: modified independence Time to Achieve: 3 days Goal Status: progressing toward goal Transfer Training Goal, Activity Type: bed to chair /chair to bed [place] Level: modified independence Assistive Device: 2 wheeled walker (FWW) Time to Achieve: 3 days Goal Status: progressing toward goal Gait Training Goal, [place] Level: supervision required Assistive Device: 2 wheeled walker (FWW) Distance: 50 Time to Achieve: 3 days Goal Status: progressing toward goal Stairs Goal, [place] Level: supervision required Assistive Device: cane (straight, single point) Number of Stairs: 5 Time to Achieve: 3 days Goal Status: progressing toward goal LTG GOALS FIM: FIM Transfers Bed/Chair/Wheelchair: 1 Bed/Chair/WC Score Evidence: 1 Two Helpers FIM Locomotion Walk: 1 Distance Walked (feet): 25 feet Walk Score Evidence: 1 Walks <50 ft, 1 Two Helpers Stairs: 0 Stairs Score Evidence: 0 Did Not Occur, 0 Unsafe Assessment: pt did well considering he was unable to do therapies yesterday. He is working hard with therapies. He demonstrates the need for continued therapies for RLE strengthenin g and stair training. He may benefit from 1 more day stay as he was unable to be seen yeste rday. Discussed with D/C sr. merchandise planner. Cont with TH act this pm. Physical Therapy Anticipated Discharge Needs are: inpatient rehabilitation facility Have the anticipated discharge needs changed? no Plan for next treatment: ,1P, amb and stair training Electronically signed by: Yolanda Mckinley PTA, 11/19/2015 9:25 lan of Care - Diane Blue RN - 11/19/2015 4:28 AM PDTProblem: Patient Care Overview (Adult) Goal: Care Team Goals & Evaluation PROBLEM-RELATED GOALS: 1. Prevent post op hypoxia 2. Will meet 75% of predicted goal on Incentive Spirometer 3. Pt will void within 6 hours of arriving to the floor post op. 4. Pt will tolerate solid food and PO pain med by 11/17/15. 5. Pt sensation will return to their baseline from the block place by 11/18/15. 6. Pt will achieve the pain score of 3/10 by 11/18/15. 7. Pt will ambulate on 11/17/15. 8. Pt will have a BM by 11/19/15. 9. Pt will be free of s/s of infection through 11/21/15. 10, Pt to be mod(I) with ADLs and functional transfers by 11/22/15 11. Pt will be Mod I in transfers and ambulation by 11/20/15. STRATEGY TO ACHIEVE GOALS: 1. Monitor saturations via oximetry every 4 hours. Titrate O2 as needed 2. Instruct patient in the use of Incentive Spirometry and/or deep breath and cough. Nursin g and Respiratory to work together to have patient use every hour while awake. Respiratory t o monitor progress 4 times daily until 75% goal met then turn over to nursing. 3. Offer toileting, use bed gorman at first, the [facility] [place] when able to stand and then encourage amb ulation to bathroom. If no void in 6 hours, then bladder scan pt and follow MD order for ass isting pt in emptying bladder. 4. Start pt on liquids on arrival to the floor, increase diet as tolerate. Once tolerating juice or solids, start pt on PO pain meds. 5. Assess sensation and strength Q 4 hrs and prn. Monitor circulation and pulse to right lo wer leg as ordered. Assist as needed, use FWW w/ all out of bed activity. Encourage ambulati on in room and sitting in chair for meals. 6. Assess pain Q 4 hr and prn. Medicate prn, re-assess pain 30-60 minutes after med and re- medicate prn. 7. Dangle pt and encourage ambulation once PT has cleared activity. Encourage ambulation to the bathroom. Use FWW and staff assist. Ambulate in the halls BID and prn as tolerated. Jenae edule CPM twice daily and prn. Give stool softener, Senna, and Miralax daily. If no BM by POD 2, use prn bowel meds until a BM is achieved. 8. Encourage water intake and mobility. Complete teaching to prevent const ipation. 9. Assess VS and temperature, dressing and lab work as directed. Notify w/ any concerns. -Pt. To participate in OT sessions with no enc. And be able to follow through with post-racquel taylor hip surgery. -Full participation in PT session in functional mobility training. RESTRAINT-RELATED GOALS: STRATEGIES TO ACHIEVE RESTRAINT GOALS: Outcome: Improving Goal Evaluation: Pt voiding adequately, using urinal. Tolerating solid foods. CMS intact. No c/o pain. SBA with FWW. BT 11/15. No s/s of infection, drsg CDI, no warmth, redness, swelling, or tendernes s around incision. lan of Care - Arabella Dasilva RN - 11/18/2015 7:54 PM PDTProblem: Patient Care Overview (Adult) Goal: Care Team Goals & Evaluation PROBLEM-RELATED GOALS: 1. Prevent post op hypoxia 2. Will meet 75% of predicted goal on Incentive Spirometer 3. Pt will void within 6 hours of arriving to the floor post op. 4. Pt will tolerate solid food and PO pain med by 11/17/15. 5. Pt sensation will return to their baseline from the block place by 11/18/15. 6. Pt will achieve the pain score of 3/10 by 11/18/15. 7. Pt will ambulate on 11/17/15. 8. Pt will have a BM by 11/19/15. 9. Pt will be free of s/s of infection through 11/21/15. 10, Pt to be mod(I) with ADLs and functional transfers by 11/22/15 11. Pt will be Mod I in transfers and ambulation by 11/20/15. STRATEGY TO ACHIEVE GOALS: 1. Monitor saturations via oximetry every 4 hours. Titrate O2 as needed 2. Instruct patient in the use of Incentive Spirometry and/or deep breath and cough. Nursin g and Respiratory to work together to have patient use every hour while awake. Respiratory t o monitor progress 4 times daily until 75% goal met then turn over to nursing. 3. Offer toileting, use bed gorman at first, the [facility] when able to stand and then encourage amb ulation to bathroom. If no void in 6 hours, then bladder scan pt and follow MD order for ass isting pt in emptying bladder. 4. Start pt on liquids on arrival to the floor, increase diet as tolerate. Once tolerating juice or solids, start pt on PO pain meds. 5. Assess sensation and strength Q 4 hrs and prn. Monitor circulation and pulse to right lo wer leg as ordered. Assist as needed, use FWW w/ all out of bed activity. Encourage ambulati on in room and sitting in chair for meals. 6. Assess pain Q 4 hr and prn. Medicate prn, re-assess pain 30-60 minutes after med and re- medicate prn. 7. Dangle pt and encourage ambulation once PT has cleared activity. Encourage ambulation to the bathroom. Use FWW and staff assist. Ambulate in the halls BID and prn as tolerated. Jenae edule CPM twice daily and prn. Give stool softener, Senna, and Miralax daily. If no BM by POD 2, use prn bowel meds until a BM is achieved. 8. Encourage water intake and mobility. Complete teaching to prevent const ipation. 9. Assess VS and temperature, dressing and lab work as directed. Notify MD w/ any concerns. -Pt. To participate in OT sessions with no enc. And be able to follow through with post-racquel taylor hip surgery. -Full participation in PT session in functional mobility training. RESTRAINT-RELATED GOALS: STRATEGIES TO ACHIEVE RESTRAINT GOALS: Outcome: Improving Goal Evaluation: He had 2 units of PRB transfused, tolerated meals well without difficulty, dressing CDI, v oiding well, calls appropriately, makes needs known. Discharge tomorrow. lan of Yolanda Diaz PTA - 11/18/2015 3:03 PM PDTProblem: Patient Care Overview (Adult) Goal: Care Team Goals & Evaluation PROBLEM-RELATED GOALS: 1. Prevent post op hypoxia 2. Will meet 75% of predicted goal on Incentive Spirometer 3. Pt will void within 6 hours of arriving to the floor post op. 4. Pt will tolerate solid food and PO pain med by 11/17/15. 5. Pt sensation will return to their baseline from the block place by 11/18/15. 6. Pt will achieve the pain score of 3/10 by 11/18/15. 7. Pt will ambulate on 11/17/15. 8. Pt will have a BM by 11/19/15. 9. Pt will be free of s/s of infection through 11/21/15. 10, Pt to be mod(I) with ADLs and functional transfers by 11/22/15 11. Pt will be Mod I in transfers and ambulation by 11/20/15. STRATEGY TO ACHIEVE GOALS: 1. Monitor saturations via oximetry every 4 hours. Titrate O2 as needed 2. Instruct patient in the use of Incentive Spirometry and/or deep breath and cough. Nursin g and Respiratory to work together to have patient use every hour while awake. Respiratory t o monitor progress 4 times daily until 75% goal met then turn over to nursing. 3. Offer toileting, use bed gorman at first, the [facility] [place] when able to stand and then encourage amb ulation to bathroom. If no void in 6 hours, then bladder scan pt and follow MD order for ass isting pt in emptying bladder. 4. Start pt on liquids on arrival to the floor, increase diet as tolerate. Once tolerating juice or solids, start pt on PO pain meds. 5. Assess sensation and strength Q 4 hrs and prn. Monitor circulation and pulse to right lo wer leg as ordered. Assist as needed, use FWW w/ all out of bed activity. Encourage ambulati on in room and sitting in chair for meals. 6. Assess pain Q 4 hr and prn. Medicate prn, re-assess pain 30-60 minutes after med and re- medicate prn. 7. Dangle pt and encourage ambulation once PT has cleared activity. Encourage ambulation to the bathroom. Use FWW and staff assist. Ambulate in the halls BID and prn as tolerated. Jenae edule CPM twice daily and prn. Give stool softener, Senna, and Miralax daily. If no BM by POD 2, use prn bowel meds until a BM is achieved. 8. Encourage water intake and mobility. Complete teaching to prevent const ipation. 9. Assess VS and temperature, dressing and lab work as directed. Notify w/ any concerns. -Pt. To participate in OT sessions with no enc. And be able to follow through with post-racquel taylor hip surgery. -Full participation in PT session in functional mobility training. RESTRAINT-RELATED GOALS: STRATEGIES TO ACHIEVE RESTRAINT GOALS: Missed Visit Patient Information Patient Name: Dena Rose Date of : 1930 Age: 84 y.o. The patient was unable to be seen for today's scheduled visit due to still receiving blood Plan: check later Electronically signed by: Yolanda Mckinley PTA, 11/18/2015 15:02 lan of Vivien - Silvina Thakur MSW - 11/18/2015 1:41 PM PDTDr Anderson states that patient should be able to discharge home VS IPR, however, Dr Calvo will come in Friday to see if patient is a carmen date for IPR. This CM spoke with patient in regards to his needs if he were to discharge ike e. He states that he has a walker and crutches. We dicussed [facility] and he is interested in having RN and therapies. This CM called [facility] who report that they woul d be able to accept the referral and follow up by Friday. This CM left a sticky note for Dr Anderson to order HH at discharge. Electronically signed by: SARAH Davila 11/18/2015 1 3:43 lan of [place]ien - Gloria Rock COTA - 11/18/2015 12:09 PM PDTProblem: Patient Care Overview (Adult) Goal: Care Team Goals & Evaluation PROBLEM-RELATED GOALS: 1. Prevent post op hypoxia 2. Will meet 75% of predicted goal on Incentive Spirometer 3. Pt will void within 6 hours of arriving to the floor post op. 4. Pt will tolerate solid food and PO pain med by 11/17/15. 5. Pt sensation will return to their baseline from the block place by 11/18/15. 6. Pt will achieve the pain score of 3/10 by 11/18/15. 7. Pt will ambulate on 11/17/15. 8. Pt will have a BM by 11/19/15. 9. Pt will be free of s/s of infection through 11/21/15. 10, Pt to be mod(I) with ADLs and functional transfers by 11/22/15 11. Pt will be Mod I in transfers and ambulation by 11/20/15. STRATEGY TO ACHIEVE GOALS: 1. Monitor saturations via oximetry every 4 hours. Titrate O2 as needed 2. Instruct patient in the use of Incentive Spirometry and/or deep breath and cough. Nursin g and Respiratory to work together to have patient use every hour while awake. Respiratory t o monitor progress 4 times daily until 75% goal met then turn over to nursing. 3. Offer toileting, use bed gorman at first, the [facility] when able to stand and then encourage amb ulation to bathroom. If no void in 6 hours, then bladder scan pt and follow MD order for ass isting pt in emptying bladder. 4. Start pt on liquids on arrival to the floor, increase diet as tolerate. Once tolerating juice or solids, start pt on PO pain meds. 5. Assess sensation and strength Q 4 hrs and prn. Monitor circulation and pulse to right lo wer leg as ordered. Assist as needed, use FWW w/ all out of bed activity. Encourage ambulati on in room and sitting in chair for meals. 6. Assess pain Q 4 hr and prn. Medicate prn, re-assess pain 30-60 minutes after med and re- medicate prn. 7. Dangle pt and encourage ambulation once PT has cleared activity. Encourage ambulation to the bathroom. Use FWW and staff assist. Ambulate in the halls BID and prn as tolerated. Jenae edule CPM twice daily and prn. Give stool softener, Senna, and Miralax daily. If no BM by POD 2, use prn bowel meds until a BM is achieved. 8. Encourage water intake and mobility. Complete teaching to prevent const ipation. 9. Assess VS and temperature, dressing and lab work as directed. Notify MD mujica/ any concerns. -Pt. To participate in OT sessions with no enc. And be able to follow through with post-racquel taylor hip surgery. -Full participation in PT session in functional mobility training. RESTRAINT-RELATED GOALS: STRATEGIES TO ACHIEVE RESTRAINT GOALS: Missed Visit Patient Information Patient Name: Dena Rose Date of : 1930 Age: 84 y.o. The patient was unable to be seen for today's scheduled visit due to pt receiving blood tra nsfusion. Plan: Continue per POC when medically stable. Electronically signed by: MISSY Case, 11/18/2015 12:09 lan of Care - Yolanda Chung, TRAINING DEVELOPMENT MANAGER - 11/18/2015 9:50 AM PDTProblem: Patient Care Overview (Adult) Goal: Care Team Goals & Evaluation PROBLEM-RELATED GOALS: 1. Prevent post op hypoxia 2. Will meet 75% of predicted goal on Incentive Spirometer 3. Pt will void within 6 hours of arriving to the floor post op. 4. Pt will tolerate solid food and PO pain med by 11/17/15. 5. Pt sensation will return to their baseline from the block place by 11/18/15. 6. Pt will achieve the pain score of 3/10 by 11/18/15. 7. Pt will ambulate on 11/17/15. 8. Pt will have a BM by 11/19/15. 9. Pt will be free of s/s of infection through 11/21/15. 10, Pt to be mod(I) with ADLs and functional transfers by 11/22/15 11. Pt will be Mod I in transfers and ambulation by 11/20/15. STRATEGY TO ACHIEVE GOALS: 1. Monitor saturations via oximetry every 4 hours. Titrate O2 as needed 2. Instruct patient in the use of Incentive Spirometry and/or deep breath and cough. Nursin g and Respiratory to work together to have patient use every hour while awake. Respiratory t o monitor progress 4 times daily until 75% goal met then turn over to nursing. 3. Offer toileting, use bed gorman at first, the [facility] when able to stand and then encourage amb ulation to bathroom. If no void in 6 hours, then bladder scan pt and follow MD order for ass isting pt in emptying bladder. 4. Start pt on liquids on arrival to the floor, increase diet as tolerate. Once tolerating juice or solids, start pt on PO pain meds. 5. Assess sensation and strength Q 4 hrs and prn. Monitor circulation and pulse to right lo wer leg as ordered. Assist as needed, use FWW w/ all out of bed activity. Encourage ambulati on in room and sitting in chair for meals. 6. Assess pain Q 4 hr and prn. Medicate prn, re-assess pain 30-60 minutes after med and re- medicate prn. 7. Dangle pt and encourage ambulation once PT has cleared activity. Encourage ambulation to the bathroom. Use FWW and staff assist. Ambulate in the halls BID and prn as tolerated. Jenae edule CPM twice daily and prn. Give stool softener, Senna, and Miralax daily. If no BM by POD 2, use prn bowel meds until a BM is achieved. 8. Encourage water intake and mobility. Complete teaching to prevent const ipation. 9. Assess VS and temperature, dressing and lab work as directed. Notify MD w/ any concerns. -Pt. To participate in OT sessions with no enc. And be able to follow through with post-racquel taylor hip surgery. -Full participation in PT session in functional mobility training. RESTRAINT-RELATED GOALS: STRATEGIES TO ACHIEVE RESTRAINT GOALS: Missed Visit Patient Information Patient Name: Dena Rose Date of : 1930 Age: 84 y.o. The patient was unable to be seen for today's scheduled visit due to receiving blood. Plan: check this pm Electronically signed by: Yolanda Mckinley PTA, 11/18/2015 9:50 lan of Care - Diane Blue RN - 11/18/2015 4:51 AM PDTProblem: Patient Care Overview (Adult) Goal: Care Team Goals & Evaluation PROBLEM-RELATED GOALS: 1. Prevent post op hypoxia 2. Will meet 75% of predicted goal on Incentive Spirometer 3. Pt will void within 6 hours of arriving to the floor post op. 4. Pt will tolerate solid food and PO pain med by 11/17/15. 5. Pt sensation will return to their baseline from the block place by 11/18/15. 6. Pt will achieve the pain score of 3/10 by 11/18/15. 7. Pt will ambulate on 11/17/15. 8. Pt will have a BM by 11/19/15. 9. Pt will be free of s/s of infection through 11/21/15. 10, Pt to be mod(I) with ADLs and functional transfers by 11/22/15 11. Pt will be Mod I in transfers and ambulation by 11/20/15. STRATEGY TO ACHIEVE GOALS: 1. Monitor saturations via oximetry every 4 hours. Titrate O2 as needed 2. Instruct patient in the use of Incentive Spirometry and/or deep breath and cough. Nursin g and Respiratory to work together to have patient use every hour while awake. Respiratory t o monitor progress 4 times daily until 75% goal met then turn over to nursing. 3. Offer toileting, use bed gorman at first, the B[facility] when able to stand and then encourage amb ulation to bathroom. If no void in 6 hours, then bladder scan pt and follow MD order for ass isting pt in emptying bladder. 4. Start pt on liquids on arrival to the floor, increase diet as tolerate. Once tolerating juice or solids, start pt on PO pain meds. 5. Assess sensation and strength Q 4 hrs and prn. Monitor circulation and pulse to right lo wer leg as ordered. Assist as needed, use FWW w/ all out of bed activity. Encourage ambulati on in room and sitting in chair for meals. 6. Assess pain Q 4 hr and prn. Medicate prn, re-assess pain 30-60 minutes after med and re- medicate prn. 7. Dangle pt and encourage ambulation once PT has cleared activity. Encourage ambulation to the bathroom. Use FWW and staff assist. Ambulate in the halls BID and prn as tolerated. Jenae edule CPM twice daily and prn. Give stool softener, Senna, and Miralax daily. If no BM by POD 2, use prn bowel meds until a BM is achieved. 8. Encourage water intake and mobility. Complete teaching to prevent const ipation. 9. Assess VS and temperature, dressing and lab work as directed. Notify MD w/ any concerns. -Pt. To participate in OT sessions with no enc. And be able to follow through with post-racquel taylor hip surgery. -Full participation in PT session in functional mobility training. RESTRAINT-RELATED GOALS: STRATEGIES TO ACHIEVE RESTRAINT GOALS: Outcome: Improving Goal Evaluation: Pt voiding adequately, using urinal. Tolerating solid food. CMS intact, no c/o pain. Ambul ates 1 person SBA with FWW. BT hypo, BM 11/14. No s/s of infection. Gabbyel drsg CDI. lan of Care - Arabella Dasilva RN - 11/17/2015 6:58 PM PDTProblem: Patient Care Overview (Adult) Goal: Care Team Goals & Evaluation PROBLEM-RELATED GOALS: 1. Prevent post op hypoxia 2. Will meet 75% of predicted goal on Incentive Spirometer 3. Pt will void within 6 hours of arriving to the floor post op. 4. Pt will tolerate solid food and PO pain med by 11/17/15. 5. Pt sensation will return to their baseline from the block place by 11/18/15. 6. Pt will achieve the pain score of 3/10 by 11/18/15. 7. Pt will ambulate on 11/17/15. 8. Pt will have a BM by 11/19/15. 9. Pt will be free of s/s of infection through 11/21/15. 10, Pt to be mod(I) with ADLs and functional transfers by 11/22/15 11. Pt will be Mod I in transfers and ambulation by 11/20/15. STRATEGY TO ACHIEVE GOALS: 1. Monitor saturations via oximetry every 4 hours. Titrate O2 as needed 2. Instruct patient in the use of Incentive Spirometry and/or deep breath and cough. Nursin g and Respiratory to work together to have patient use every hour while awake. Respiratory t o monitor progress 4 times daily until 75% goal met then turn over to nursing. 3. Offer toileting, use bed gorman at first, the BSC when able to stand and then encourage amb ulation to bathroom. If no void in 6 hours, then bladder scan pt and follow MD order for ass isting pt in emptying bladder. 4. Start pt on liquids on arrival to the floor, increase diet as tolerate. Once tolerating juice or solids, start pt on PO pain meds. 5. Assess sensation and strength Q 4 hrs and prn. Monitor circulation and pulse to right lo wer leg as ordered. Assist as needed, use FWW w/ all out of bed activity. Encourage ambulati on in room and sitting in chair for meals. 6. Assess pain Q 4 hr and prn. Medicate prn, re-assess pain 30-60 minutes after med and re- medicate prn. 7. Dangle pt and encourage ambulation once PT has cleared activity. Encourage ambulation to the bathroom. Use FWW and staff assist. Ambulate in the halls BID and prn as tolerated. Jenae edule CPM twice daily and prn. Give stool softener, Senna, and Miralax daily. If no BM by POD 2, use prn bowel meds until a BM is achieved. 8. Encourage water intake and mobility. Complete teaching to prevent const ipation. 9. Assess VS and temperature, dressing and lab work as directed. Notify MD w/ any concerns. -Pt. To participate in OT sessions with no enc. And be able to follow through with post-racquel taylor hip surgery. -Full participation in PT session in functional mobility training. RESTRAINT-RELATED GOALS: STRATEGIES TO ACHIEVE RESTRAINT GOALS: Outcome: Improving Goal Evaluation: He, has done his IS throughout the day, tolerated meals well without difficulty, minimal to no pain, abductor pillow in place, a little dizzy upon therapies, calls appropriately and makes needs known. Consult for inpatient rehab. lan of [place] nikky Rachel Guerra, PT - 11/17/2015 5:27 PM PDTFormatting of this note might be different f rom the original. Problem: Patient Care Overview (Adult) Goal: Care Team Goals & Evaluation PROBLEM-RELATED GOALS: 1. Prevent post op hypoxia 2. Will meet 75% of predicted goal on Incentive Spirometer 3. Pt will void within 6 hours of arriving to the floor post op. 4. Pt will tolerate solid food and PO pain med by 11/17/15. 5. Pt sensation will return to their baseline from the block place by 11/18/15. 6. Pt will achieve the pain score of 3/10 by 11/18/15. 7. Pt will ambulate on 11/17/15. 8. Pt will have a BM by 11/19/15. 9. Pt will be free of s/s of infection through 11/21/15. 10, Pt to be mod(I) with ADLs and functional transfers by 11/22/15 11. Pt will be Mod I in transfers and ambulation by 11/20/15. STRATEGY TO ACHIEVE GOALS: 1. Monitor saturations via oximetry every 4 hours. Titrate O2 as needed 2. Instruct patient in the use of Incentive Spirometry and/or deep breath and cough. Nursin g and Respiratory to work together to have patient use every hour while awake. Respiratory t o monitor progress 4 times daily until 75% goal met then turn over to nursing. 3. Offer toileting, use bed gorman at first, the BSC when able to stand and then encourage amb ulation to bathroom. If no void in 6 hours, then bladder scan pt and follow MD order for ass isting pt in emptying bladder. 4. Start pt on liquids on arrival to the floor, increase diet as tolerate. Once tolerating juice or solids, start pt on PO pain meds. 5. Assess sensation and strength Q 4 hrs and prn. Monitor circulation and pulse to right lo wer leg as ordered. Assist as needed, use FWW w/ all out of bed activity. Encourage ambulati on in room and sitting in chair for meals. 6. Assess pain Q 4 hr and prn. Medicate prn, re-assess pain 30-60 minutes after med and re- medicate prn. 7. Dangle pt and encourage ambulation once PT has cleared activity. Encourage ambulation to the bathroom. Use FWW and staff assist. Ambulate in the halls BID and prn as tolerated. Jenae edule CPM twice daily and prn. Give stool softener, Senna, and Miralax daily. If no BM by POD 2, use prn bowel meds until a BM is achieved. 8. Encourage water intake and mobility. Complete teaching to prevent const ipation. 9. Assess VS and temperature, dressing and lab work as directed. Notify MD w/ any concerns. -Pt. To participate in OT sessions with no enc. And be able to follow through with post-racquel taylor hip surgery. -Full participation in PT session in functional mobility training. RESTRAINT-RELATED GOALS: STRATEGIES TO ACHIEVE RESTRAINT GOALS: Physical Therapy Acute Initial Evaluation Note Patient Information Patient Name: Dena Rose Date of : 1930 Age: 84 y.o. History Encounter Diagnoses Code Name Primary? S72.001A Hip fracture, right, closed, initial encounter ([facility]) Yes D64.9 Anemia, unspecified type I25.10 Coronary artery disease involving craig coronary artery of craig heart without angina pectoris Date of Onset: 11/16/15 Past Medical History Diagnosis Date Carotid stenosis Femur fracture, left ([facility]) Basal cell carcinoma of skin Actinic keratosis Eczema Osteoarthritis Hearing loss wears hearing aids Pes planus Wears dentures full upper CAD (coronary artery disease) Anemia CVA (cerebral vascular accident) ([facility]) H/O: facial fractures Fx eight/more rib-closed Past Surgical History Procedure Laterality Date Cath placement 05/23/15 Coronary artery stent 07/07/14 Left femur fracture repair Brachytherapy breast Egd and colonoscopy N/A 07/25/2015 Procedure: EGD / COLONOSCOPY; Surgeon: Dena More MD; Location: [facility] Hip arthroplasty Right 11/16/2015 Procedure: Right Hemiarthroplasty Hip ; Surgeon: Rayo Anderson MD; Location: [facility] MAIN OR Allergies Allergen Reactions Sulfa Antibiotics Nausea And Vomiting Precautions/Limitations: falls, right posterior hip precautions Left Upper Extremity Weight-Bearing: full weight-bearing Right Upper Extremity Weight-Bearing: full weight-bearing Left Lower Extremity Weight-Bearing: full weight-bearing Right Lower Extremity Weight-Bearing: weight-bearing as tolerated EVALUATION: SUBJECTIVE: History of Presenting Problem: Dena Rose is a 84 y.o. 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 PT Diagnosis: Impaired gait and balance, LE ms weakness, dec.activity tolerance Impairments Found: aerobic capacity/endurance, gait, locomotion, and balance, muscle perfor matthew Previous Level of Function: Ambulation: 0-->independent Transferrin-->independent Toiletin-->independent Bathin-->independent Dressin-->independent Eatin-->independent Communication: 0-->understands/communicates without difficulty Swallowin-->swallows foods/liquids without difficulty Prior Functional Level Comment: Pt was independent in ADL's and ambulates w/o AD. 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 He has a narrow shower, and a hand held shower head and a shower chair with a back. has a FWW Patient s Goals: To return to PLOF OBJECTIVE : Patient Status/Goals: Reflects last filed data of patient status; may be from multiple contributors. Gait Level of [place] : contact guard assist, 2 person assist required, verbal cues require d Assistive Device: 2 wheeled walker (FWW) Distance (feet): 25 Gait Pattern Analysis: 3-point gait Gait Deviations: lizette decreased, [id number] ratio decreased, double stance time inc reased, limb motion velocity decreased, [id number] clearance decreased, step length decrea sed, weight-shifting ability decreased Impairments: strength decreased, impaired balance, decreased flexibility Stairs N/T Transfers Max cuing to maintain post.hip precautions. Bed-Chair, Level of [place]: minimum assist (75% patient effort), 2 person assist requ ired, verbal cues required Chair-Bed, Level of [place]: minimum assist (75% patient effort), verbal cues required , 2 person assist required [id number], Assistive Device: 2 wheeled walker (FWW) Sit-Stand, Level of [place]: Moderate assist of 2 person, verbal cues required Stand-Sit, Level of [place]: verbal cues required, 2 person Minimum assist [id number], Assistive Device: 2 wheeled walker (FWW) Safety Issues: weight-shifting ability decreased, step length decreased, steps too close fr ont assistive device Impairments: pain, ROM decreased, decreased flexibility, strength decreased Bed Mobility Supine to Sit, Level of [place]: verbal cues required, 2 person Moderate assist (50% p atient effort) Sit to Supine, Level of [place]: 2 person Max A verbal cues required Safety Issues: decreased use of legs for bridging/pushing Impairments: impaired balance, strength decreased, decreased flexibility Balance Sitting Balance: Static: (G-) Sitting Balance: Dynamic: (G-) Standing Balance: Static: (P+) Standing Balance: Dynamic: (P+) Therapeutic Exercise Bed exercises: right, ankle pumps, quad sets, glut sets L LE ROM: WFL R LE ROM: WFL, post hip precautions Strength L LE Strength: 4+/5 R LE Strength: hip flexion 2-/5, abd 2-/5, knee ext 3-/5, DF 4/5 STG GOALS Bed Mobility Goal, Activity Type: supine to sit/sit to supine [place] Level: modified independence Time to Achieve: 3 days Goal Status: new Transfer Training Goal, Activity Type: bed to chair /chair to bed [place] Level: modified independence Assistive Device: 2 wheeled walker (FWW) Time to Achieve: 3 days Goal Status: new Gait Training Goal, [place] Level: supervision required Assistive Device: 2 wheeled walker (FWW) Distance: 50 Time to Achieve: 3 days Goal Status: new Stairs Goal, [place] Level: supervision required Assistive Device: cane (straight, single point) Number of Stairs: 5 Time to Achieve: 3 days Goal Status: new FIM: FIM Transfers Bed/Chair/Wheelchair: 1 Bed/Chair/WC Score Evidence: 1 Two Helpers FIM Locomotion Walk: 1 Distance Walked (feet): 25 feet Walk Score Evidence: 1 Walks <50 ft, 1 Two Helpers Stairs: 0 Stairs Score Evidence: 0 Did Not Occur, 0 Unsafe Demonstrates need for referral to other service: Assessment: Physical therapy orders received and acknowledged. Objective impairments inclu de gait instability, impaired balance, ms weakness on (R) LE, difficulty in bed mobility and transfers, dec.activity tolerance . These impairments are causing functional limitations wi th patient s inability to mobilize at a level that is safe for home d/c. Complexities cont ributing to the need for skilled therapy include orthostatic hypotension.. Rehabilitation potential: Patient demonstrates good potential to achieve established goals to address the documented impairments by participating in skilled physical therapy services . PLAN: balance training, bed mobility training, ROM (Range of Motion), stair training, strengtheni ng, patient/family education, transfer training, manual therapy techniques, home exercise pr ogram, gait training Physical Therapy will follow Dena Rose 2 times/day until discharge from therapy or discharged from the hospital. Anticipated days that therapy will be provided: 11/20/15 Physical Therapy Anticipated Discharge Needs: Ongoing PT services required. DC disposition TBD. Post discharge physical therapy recommendation: ongoing low intensity therapy, home health Equipment Recommendations: 2 wheeled walker (FWW) Patient and/or family has indicated understanding of treatment needs and actively participa jake in the creation of this plan for care. Today's Treatment Start Time: 1133 Stop time: 1217 Time Calculation: 44 minutes Missed Treatment Time: 0 minutes Total Treatment Time: 44 minutes TimedTreatment Code Minutes: 30 minutes Objective: Treatment Provided: PT eval completed and tx initiated. Bed mobility training supine to si t 2 person Mod A and sit to dupine 2P Max A with verbal cues for correct sequence and techni que to inc.independence. Gait training with FWW x 25 CGA x 2P with verbal cues for correct sequence with AD to improve gait. Trannsfer training with FWW x 2P CGA and Mod A of 2 perso n for sit to stand with Max cuing for correct technique to maintain post.hip precautions. P t's BP before tx was 131/58 mmHg supine, sitting 135/59 mmHg, standing 139/62 mmHg, after wa lking 118/58 mmHg taken in sitting then dec.to 109/55 mmHg. Pt was immediately assisted to b ed and started to feel dizzy and with blank gaze. Pt was placed in supine position. Pt fel t better with BP 120/56 mmHg when pt was left, with all needs within reach. RN informed abo ut this. Education: Instructed pt in post hip precautions, quads, gluteal setting ex. Pt return dem o and verbalized understanding. Assessment: Pt presents with mobility impairmets secondary to (R) hip replacement. Pt was also orthostatic. Pt has 5 steps with 1 hand rail to enter his house and will benefit from skilled PT services to improve functional mobility, balance and dec.fall risk for safe d/c t o home. Plan for next treatment: BID, CW 2P FWW progressive gait, orthostatic, bed mobility martini ciarra. Electronically signed by: RACHEL PINEDA, PT, 11/17/2015 17:26 lan of Care - Sulema diaz Yolanda, TRAINING DEVELOPMENT MANAGER - 11/17/2015 2:50 PM PDTProblem: Patient Care Overview (Adult) Goal: Care Team Goals & Evaluation PROBLEM-RELATED GOALS: 1. Prevent post op hypoxia 2. Will meet 75% of predicted goal on Incentive Spirometer 3. Pt will void within 6 hours of arriving to the floor post op. 4. Pt will tolerate solid food and PO pain med by 11/17/15. 5. Pt sensation will return to their baseline from the block place by 11/18/15. 6. Pt will achieve the pain score of 3/10 by 11/18/15. 7. Pt will ambulate on 11/17/15. 8. Pt will have a BM by 11/19/15. 9. Pt will be free of s/s of infection through 11/21/15. 10, Pt to be mod(I) with ADLs and functional transfers by 11/22/15 STRATEGY TO ACHIEVE GOALS: 1. Monitor saturations via oximetry every 4 hours. Titrate O2 as needed 2. Instruct patient in the use of Incentive Spirometry and/or deep breath and cough. Nursin g and Respiratory to work together to have patient use every hour while awake. Respiratory t o monitor progress 4 times daily until 75% goal met then turn over to nursing. 3. Offer toileting, use bed gorman at first, the BSC when able to stand and then encourage amb ulation to bathroom. If no void in 6 hours, then bladder scan pt and follow MD order for ass isting pt in emptying bladder. 4. Start pt on liquids on arrival to the floor, increase diet as tolerate. Once tolerating juice or solids, start pt on PO pain meds. 5. Assess sensation and strength Q 4 hrs and prn. Monitor circulation and pulse to right lo wer leg as ordered. Assist as needed, use FWW w/ all out of bed activity. Encourage ambulati on in room and sitting in chair for meals. 6. Assess pain Q 4 hr and prn. Medicate prn, re-assess pain 30-60 minutes after med and re- medicate prn. 7. Dangle pt and encourage ambulation once PT has cleared activity. Encourage ambulation to the bathroom. Use FWW and staff assist. Ambulate in the halls BID and prn as tolerated. Jenae edule CPM twice daily and prn. Give stool softener, Senna, and Miralax daily. If no BM by POD 2, use prn bowel meds until a BM is achieved. 8. Encourage water intake and mobility. Complete teaching to prevent const ipation. 9. Assess VS and temperature, dressing and lab work as directed. Notify w/ any concerns. -Pt. To participate in OT sessions with no enc. And be able to follow through with post-racquel taylor hip surgery. RESTRAINT-RELATED GOALS: STRATEGIES TO ACHIEVE RESTRAINT GOALS: Physical Therapy Daily Treatment Note Patient Information Patient Name: Dena Rose Date of : 1930 Age: 84 y.o. Precautions/Limitations: falls Right Lower Extremity Weight-Bearing: weight-bearing as tolerated History of Presenting Problem: Pt. fell over while working on his horse, resulting in hip f racture. PT Diagnosis: Start Time: 1305 Stop time: 1350 Time Calculation: 45 minutes Missed Treatment Time: minutes Total Treatment Time: 45 minutes TimedTreatment Code Minutes: minutes Subjective: pt is resting in bed and is c/o dizziness and states he has vertigo. He is alise ling to get up and mobilize. Objective: Treatment Provided: transfers, gentle there ex to R hip, pre gt act as he was somewhat ligh theaded. Education: inst pt to sit up in the chair for meals. Patient Status/Goals: Reflects last filed data of patient status; may be from multiple contributors. Gait Level of [place] : contact guard assist, 2 person assist required, verbal cues require d Assistive Device: 2 wheeled walker (FWW) Distance (feet): (10 feet) Transfers Sit-Stand, Level of [place]: contact guard assist, verbal cues required Stand-Sit, Level of [place]: verbal cues required, contact guard assist [id number], Assistive Device: 2 wheeled walker (FWW) Impairments: pain, ROM decreased, decreased flexibility, strength decreased Bed Mobility Supine to Sit, Level of [place]: verbal cues required, minimum assist (75% patient eff ort) Sit to Supine, Level of [place]: verbal cues required Safety Issues: decreased use of legs for bridging/pushing Therapeutic Exercise Bed exercises: right, ankle pumps, quad sets, glut sets Assessment: pt's BP's supine 129/81 sitting 139/61 and standing 143/70 and HR standing 103. Pt fatigued and was assisted back into bed. He will benefit from further PT intervention for transfers, gt and ROM to maximize MRADL's. Physical Therapy Anticipated Discharge Needs are: Have the anticipated discharge needs changed? no Post discharge physical therapy recommendation: . Plan for next treatment: 1P,,transfers, gt and gentle strengthening. hip precautions. Electronically signed by: Yolanda Mckinley PTA, 11/17/2015 14:45 lan of Care - Miriam Coffey OT - 11/17/2015 2:39 PM PDT Problem: Patient Care Overview (Adult) Goal: Care Team Goals & Evaluation PROBLEM-RELATED GOALS: 1. Prevent post op hypoxia 2. Will meet 75% of predicted goal on Incentive Spirometer 3. Pt will void within 6 hours of arriving to the floor post op. 4. Pt will tolerate solid food and PO pain med by 11/17/15. 5. Pt sensation will return to their baseline from the block place by 11/18/15. 6. Pt will achieve the pain score of 3/10 by 11/18/15. 7. Pt will ambulate on 11/17/15. 8. Pt will have a BM by 11/19/15. 9. Pt will be free of s/s of infection through 11/21/15. 10, Pt to be mod(I) with ADLs and functional transfers by 11/22/15 STRATEGY TO ACHIEVE GOALS: 1. Monitor saturations via oximetry every 4 hours. Titrate O2 as needed 2. Instruct patient in the use of Incentive Spirometry and/or deep breath and cough. Nursin g and Respiratory to work together to have patient use every hour while awake. Respiratory t o monitor progress 4 times daily until 75% goal met then turn over to nursing. 3. Offer toileting, use bed gorman at first, the BSC when able to stand and then encourage amb ulation to bathroom. If no void in 6 hours, then bladder scan pt and follow MD order for ass isting pt in emptying bladder. 4. Start pt on liquids on arrival to the floor, increase diet as tolerate. Once tolerating juice or solids, start pt on PO pain meds. 5. Assess sensation and strength Q 4 hrs and prn. Monitor circulation and pulse to right lo wer leg as ordered. Assist as needed, use FWW w/ all out of bed activity. Encourage ambulati on in room and sitting in chair for meals. 6. Assess pain Q 4 hr and prn. Medicate prn, re-assess pain 30-60 minutes after med and re- medicate prn. 7. Dangle pt and encourage ambulation once PT has cleared activity. Encourage ambulation to the bathroom. Use FWW and staff assist. Ambulate in the halls BID and prn as tolerated. Jenae edule CPM twice daily and prn. Give stool softener, Senna, and Miralax daily. If no BM by POD 2, use prn bowel meds until a BM is achieved. 8. Encourage water intake and mobility. Complete teaching to prevent const ipation. 9. Assess VS and temperature, dressing and lab work as directed. Notify w/ any concerns. -Pt. To participate in OT sessions with no enc. And be able to follow through with post-racquel taylor hip surgery. RESTRAINT-RELATED GOALS: STRATEGIES TO ACHIEVE RESTRAINT GOALS: Occupational Therapy Acute Initial Evaluation Note Patient Information Patient Name: Dena Rose Date of : 1930 Age: 84 y.o. History Encounter Diagnoses Code Name Primary? S72.001A Hip fracture, right, closed, initial encounter ([facility]) Yes D64.9 Anemia, unspecified type I25.10 Coronary artery disease involving craig coronary artery of craig heart without angina pectoris Date of Onset: 11/16/15 Past Medical History Diagnosis Date Carotid stenosis Femur fracture, left ([facility]) Basal cell carcinoma of skin Actinic keratosis Eczema Osteoarthritis Hearing loss wears hearing aids Pes planus Wears dentures full upper CAD (coronary artery disease) Anemia CVA (cerebral vascular accident) ([facility]) H/O: facial fractures Fx eight/more rib-closed Past Surgical History Procedure Laterality Date Cath placement 05/23/15 Coronary artery stent 07/07/14 Left femur fracture repair Brachytherapy breast Egd and colonoscopy N/A 07/25/2015 Procedure: EGD / COLONOSCOPY; Surgeon: Dena More MD; Location: [facility] Hip arthroplasty Right 11/16/2015 Procedure: Right Hemiarthroplasty Hip ; Surgeon: Rayo Anderson MD; Location: [facility] MAIN OR Allergies Allergen Reactions Sulfa Antibiotics Nausea And Vomiting Precautions/Limitations: falls Right Lower Extremity Weight-Bearing: weight-bearing as tolerated Evaluation SUBJECTIVE: History of Presenting Problem: Dena Rose is a 84 y.o. who presents to therapy for Pt. fell over while working on his horse, resulting in hip fracture. Patient is right handed. OT Diagnosis: OT. eval. and treat after hip fracture and hemiarthroplasty Previous Level of Function: Ambulation: 0-->independent Transferrin-->independent Toiletin-->independent Bathin-->independent Dressin-->independent Eatin-->independent Communication: 0-->understands/communicates without difficulty Swallowin-->swallows foods/liquids without difficulty Prior Functional Level Comment: Pt. prev. (I) all ADLs, and did not use an A/D for ambulati on. He and his live in [place], and have 2 horses he cares for and rides. Role/Relationships: Provides Primary Care For: pet(s) Living Environment/Accessibility: Lives With: spouse Living Arrangements: house Home Accessibility: no concerns Number of Stairs to Enter Home: 9 Number of Stairs Within Home: 9 Financial Concerns: none Transportation Available: car Living Environment Comment: has tall toilet with safety rails. He has a narrow shower, and a hand held shower head and a shower chair with a back. has a FWW Patient s Goals: "I want to go home when I can" OT Visit Summary: Pt. was mod (A) to get OOB with (A) needed to lift (R) leg. He was able to sit up at EOB with no c/o increased pain or lightheadedness. Pt. able to stand up with 2 people SBA. He was able to walk to dooor and back with CGA. He declined to do ADLs at EO S. He has equip. at home from prev. surgeries he has had and his have had. He plans t o go home. Occupational Therapy will follow Dena Rose 5 times/wk until discharge from therapy or discharged from the hospital. Occupational Therapy Anticipated Discharge Needs: Ongoing occupational therapy required. DC disposition TBD. Post discharge occupational therapy recommendation: family involved/supportive, pt is roxi khan participant, home health Equipment Recommendations: 2 wheeled walker (FWW), shower chair, tie mill operator, seat riser Identified Problems Needing Skilled Intervention: OT. eval. and treat after hip fracture and hemiarthroplasty, aerobic capacity/endurance, gait, locomotion, and balance Planned Interventions:Planned Therapy Interventions: ADL retraining, transfer training Patient Status/Goals Reflects last filed data of patient status; may be from multiple contributors. FIM: ADLs Pt. did not participate in ADLs today. IADLs Therapeutic Exercise Functional Endurance Cognitive Cognitive Tests Bed Mobility Transfers Pt. had not been up OOB yet today, so able to address getting up for the first time. Wheelchair Mobility Balance ROM Strength STG Goals Transfer Training Goal, Activity Type: walk-in shower Point [place] Level: supervision required, contact guard assist Assistive Device: 2 wheeled walker (FWW), shower chair Time to Achieve: 2 - 3 days Goal Status: new Grooming Goal, [place] Level: set up required Adaptive Equipment: none Position: standing Time to Achieve: 2 - 3 days Goal Status: new LB Dressing Goal, [place] Level: contact guard assist Adaptive Equipment: tie mill operator, dressing stick, sock-aid Time to Achieve: 2 - 3 days Goal Status: new LTG Goals Demonstrates need for referral to other service: Assessment: Occupational therapy orders received and acknowledged. Objective impairments i nclude posterior approach hip surgery with post-op precautions. These impairments are causin g functional limitations with patient s inability to return home without help or being abl e to return to working on his horses. Complexities contributing to the need for skilled ther apy include advanced age, posterior approach hip surgery.. Prognosis: good, to achieve stated therapy goals Patient and/or family has indicated understanding of treatment needs and actively participa jake in the creation of this plan for care. Today's Treatment Start Time: 939 Stop time: 0 Time Calculation: 40 minutes Missed Treatment Time: minutes Total Treatment Time: 40 minutes TimedTreatment Code Minutes: 30 minutes Objective: Education: purpose of OT. Treatment Provided: eval. And transfer training. Assessment: Pt. Cooperative and worked well in OT Session and was pleased that he was able to get up and move as well as he did. Pt. Declined to do ADLs since he had not been up OOB yet. Pt. Anticipated pain but had minimal c/o pain. Plan for next treatment: 2P. RG. OT to see for ADLs to assess for inpt. rehab. Electronically signed by: Miriam Izaguirre OT, 11/17/2015 14:32 lan of Care - Marion Burnham - 11/17/2015 11:53 AM PDTDischarge Planning: Met with He, his spouse and their daughter today. He is independent with his needs. They are interested in our Inpatient Rehab prior to going home. This CM spoke with Selma minaya nd asked Dr. Martinez to place a rehab eval. CM to follow as needed Electronically signed by: Marion Arita 11/17/2015 12:03 lan of Care - Diane Huber RN - 11/17/2015 5:10 AM PDTProblem: Patient Care Overview (Adult) Goal: Care Team Goals & Evaluation PROBLEM-RELATED GOALS: 1. Prevent post op hypoxia 2. Will meet 75% of predicted goal on Incentive Spirometer 3. Pt will void within 6 hours of arriving to the floor post op. 4. Pt will tolerate solid food and PO pain med by 11/17/15. 5. Pt sensation will return to their baseline from the block place by 11/18/15. 6. Pt will achieve the pain score of 3/10 by 11/18/15. 7. Pt will ambulate on 11/17/15. 8. Pt will have a BM by 11/19/15. 9. Pt will be free of s/s of infection through 11/21/15. STRATEGY TO ACHIEVE GOALS: 1. Monitor saturations via oximetry every 4 hours. Titrate O2 as needed 2. Instruct patient in the use of Incentive Spirometry and/or deep breath and cough. Nursin g and Respiratory to work together to have patient use every hour while awake. Respiratory t o monitor progress 4 times daily until 75% goal met then turn over to nursing. 3. Offer toileting, use bed gorman at first, the BSC when able to stand and then encourage amb ulation to bathroom. If no void in 6 hours, then bladder scan pt and follow MD order for ass isting pt in emptying bladder. 4. Start pt on liquids on arrival to the floor, increase diet as tolerate. Once tolerating juice or solids, start pt on PO pain meds. 5. Assess sensation and strength Q 4 hrs and prn. Monitor circulation and pulse to right lo wer leg as ordered. Assist as needed, use FWW w/ all out of bed activity. Encourage ambulati on in room and sitting in chair for meals. 6. Assess pain Q 4 hr and prn. Medicate prn, re-assess pain 30-60 minutes after med and re- medicate prn. 7. Dangle pt and encourage ambulation once PT has cleared activity. Encourage ambulation to the bathroom. Use FWW and staff assist. Ambulate in the halls BID and prn as tolerated. Jenae edule CPM twice daily and prn. Give stool softener, Senna, and Miralax daily. If no BM by POD 2, use prn bowel meds until a BM is achieved. 8. Encourage water intake and mobility. Complete teaching to prevent const ipation. 9. Assess VS and temperature, dressing and lab work as directed. Notify MD w/ any concerns. RESTRAINT-RELATED GOALS: STRATEGIES TO ACHIEVE RESTRAINT GOALS: Outcome: Improving Goal Evaluation: Pt voiding well. CMS intact. Wiggles toes, weak dorsi/plantar flexion. No c/o pain this sh ift. BT+. Remains free from s/s of infection. lan of Care - Asif Owens, NURSE MANAGER - 11/17/2015 12:32 AM PDTProblem: Patient Care Overview (Adult) Goal: Care Team Goals & Evaluation PROBLEM-RELATED GOALS: 1. Prevent post op hypoxia 2. Will meet 75% of predicted goal on Incentive Spirometer STRATEGY TO ACHIEVE GOALS: 1. Monitor saturations via oximetry every 4 hours. Titrate O2 as needed 2. Instruct patient in the use of Incentive Spirometry and/or deep breath and cough. Nursin g and Respiratory to work together to have patient use every hour while awake. Respiratory t o monitor progress 4 times daily until 75% goal met then turn over to nursing. RESTRAINT-RELATED GOALS: STRATEGIES TO ACHIEVE RESTRAINT GOALS: Goal Evaluation: SpO2 98 % on open oxygen mask at flow rate 2L/min. IS at bedside for patient. p Note - Anjali Anderson MD - 11/16/2015 8:57 PM PDT[facility] Pt. Name/Age/: Dena Rose 84 y.o. 1930 [facility]. Record Number: [id number] Date of admission: 11/16/2015 Date of Operation/Procedure: 11/16/2015 Preoperative Diagnosis: 1. Closed Femoral Neck Fracture Right Hip Postoperative Diagnosis: 1. Same Surgeon: Rayo Anderson MD Bench Press Operator: Pedro BOB Anesthesia Provider(s): Anesthesiologist: Patrick Springer MD Anesthesia Type: Choice PROCEDURE: Repair of Hip fracture with endoprosthesis OPERATING SURGEON: Rayo Anderson MD FINDINGS: Displaced femoral neck fracture COMPONENTS USED: Depuy [place] Basic Femur size 8 with a +10 neck length and 54mm head. PROCEDURE: After appropriate premedication, the patient was brought to the operating room, anesthetic was induced and the patient was positioned on the operating table in the lateral position. The hip and lower extremity were prepped with Chloroprep and sterilely draped. The hip was positioned in approximately 60 degrees of flexion, adduction and slight internal rotation. The incision was made in line with the femur extending from the tip of the great er trochanter proximally approximately 6 cm. Dissection was carried through the subcutaneou s tissue and the underlying gluteal fascia was incised longitudinally. The gluteal mihai muscle was split in the direction of its fibers and retracted. The gluteus medius muscle wa s identified. Blunt dissection was used to dissect posterior and inferior to the muscle and it was retracted anteriorly. A cob elevator was used to disect between the piriformis and e xternal rotator muscles and the hip capsule and a retractor was placed in this interval. A longitudinal incision was made in the hip capsule along the posterior border of the gluteus minimus extending from the base of the greater trochanter to the acetabulum. Blunt Hohmann retractors were placed between the hip capsule and the femoral neck anteriorly and posterio rly retracting the capsule and affording access to the superior aspect of the femoral head a nd neck. The apex of the base of the femoral neck was identified and the femoral canal was entered with the appropriate starter reamer. This was followed by the metaphyseal reamer to expand the proximal opening laterally and avoid varus positioning of the femoral broaches. A back turned curette was used to clear down to the cortical bone at the medial aspect on the proximal femoral neck. The femoral head was removed. Sequentially, sized broaches were t hen used to broach the proximal femur to the appropriate size. The C arm was used to check t he position and depth of the broach and adjustments were made as necessary. The acetabulum was carefully cleaned of soft tissue and bone. A trial femoral headwas placed in the acetab ulum. The trial neck was inserted into the femoral broach and the neck was articulated to th e head.The hip was run through range of motion, found to be extremely stable, basically undi slocatable posteriorly or anteriorly. A C-arm was used to check the position of the femur a nd the leg length and adjustments were made as necessary. The trial components were removed . The final femoral head was placed in the acetabulum. The femoral component was impacted in to place. The femoral head was articulated to the femoral neck and the hip was run through range of motion and found to be very stable. This was again visualized with the C-arm and s een to be in good position with good leg length. The wound was irrigated copiously with luh rile saline. Adequate hemostasis had been assured throughout the procedure. The wound was closed using #1 Vicryl to close the hip capsule and the gluteal fascia; 2-0 Vicryl was used for the subcutaneous tissue and the skin was closed with 4-0 Monocryl subcuticularly. The wo und was sealed with liquiband and an aquacel occlusive dressing was placed. Patient was andrei kened and sent to the recovery room in a satisfactory condition. EBL 850cc Rayo Anderson MD rief Op Note - Rayo Anderson MD - 11/16/2015 8:56 PM PDTFormatting of this note might be differe nt from the original. Brief Operative Note Dean Rose 84 y.o. male 1930 [id number] Proc. Date 11/16/2015 Preop Dx Closed fracture of neck of right femur, initial encounter ([facility]) [S72.001A] Postop Dx same Procedure Right Hemiarthroplasty Hip Anesthesia Choice Surgeon Rayo Anderson MD - [employer] EBL 850cc Findings Findings consistent with scheduled procedure. No other abnormalities found. Complications none Specimens * No specimens in log * Drains none Electronically signed by: Rayo Anderson MD 11/16/2015 20:56 [facility]ISC[facility] HEALTHElectronically signed by Rayo Anderson MD a t 11/16/2015 8:57 PM PDTAssessment & Plan Note - Tejal Altamirano MD - 11/16/2015 2:40 PM PDTAssociated Problem(s): Closed right hip fracture, initial encounter ([facility])Acute traumatic injury, admission and care per orthopedist front office associate today. ssessment & Plan Note - Tejal Altamirano MD - 016 2:40 PM PDTAssociated Problem(s): Rheumatoid arthritis (HCC)Appears chronic s/p evaluat ion by GI and heme/onc. Will need type and crossmatch. ssessment & Plan Note - Tejal Altamirano MD - 11/16/2015 2:39 PM PDTAssociated Problem(s): S/P coronary artery stent placementMay need to hold ASA a nd Plavix due to planned orthopedic procedure. Stent was placed 07/09 at [facility] [place] Triage Notes - Tahir Antunez RN - 11/16/2015 12:36 PM PDTReports he had gotten his right foot stepped o n by horse and then fell backwards injuring right hip happen at 1000 had breakfast at 0400 t his am. documented in t his encounter Plan of Treatment +--------+---------+ + + + | Date | Type | Specialty | Care Team | Description | +--------+---------+ + + + | 02/01/ | Office | Cardiology | Jazlyn Almeida, | | | 2020 | Visit | | MD Vikram RICARDO | | | | | | [facility] [place], [place] | | | | | | [address] | | | | | | | | +--------+---------+ + + + + + +--------+ + + | Name | Type | Priori | Associated Diagnoses | Date/Time | | | | ty | | | + + +--------+ + + | Red Blood Cells | Blood - | Routin | | 11/16/2015 5:54 PM | | ([facility]) - Transfuse | Nursing | e | | PDT | | | Transfusion | | | | + + +--------+ + + | Red Blood Cells | Blood - | Routin | | 11/16/2015 5:54 PM | | ([facility]) - Transfuse | Nursing | e | | PDT | | | Transfusion | | | | + + +--------+ + + documented as of this encounter Procedures + +--------+ + + + | Procedure Name | Priori | Date/Time | Associated Diagnosis | Comments | | | ty | | | | + +--------+ + + + | HEMOGLOBIN AND | Routin | 11/19/2015 | | Results for this | | HEMATOCRIT | e | 5:55 AM | | procedure are in the | | | | PDT | | results section. | + +--------+ + + + | BASIC METABOLIC | Routin | 11/19/2015 | | Results for this | | PANEL | e | 5:55 AM | | procedure are in the | | | | PDT | | results section. | + +--------+ + + + | PRODUCT: RBC | Routin | 11/19/2015 | | Results for this | | | e | 1:15 AM | | procedure are in the | | | | PDT | | results section. | + +--------+ + + + | PRODUCT: RBC | Routin | 11/19/2015 | | Results for this | | | e | 1:15 AM | | procedure are in the | | | | PDT | | results section. | + +--------+ + + + | VITAMIN B-12 | Routin | 11/18/2015 | | Results for this | | | e | 5:28 PM | | procedure are in the | | | | PDT | | results section. | + +--------+ + + + | IRON AND TRANSFERRIN | Routin | 11/18/2015 | | Results for this | | | e | 5:28 PM | | procedure are in the | | | | PDT | | results section. | + +--------+ + + + | CBC NO DIFFERENTIAL | Routin | 11/18/2015 | | Results for this | | | e | 5:28 PM | | procedure are in the | | | | PDT | | results section. | + +--------+ + + + | FOLATE | Routin | 11/18/2015 | | Results for this | | | e | 5:28 PM | | procedure are in the | | | | PDT | | results section. | + +--------+ + + + | TRANSFUSE 2 UNITS | Routin | 11/18/2015 | | | | RED BLOOD CELLS | e | 3:25 PM | | | | | | PDT | | | + +--------+ + + + | TRANSFUSE 2 UNITS | Routin | 11/18/2015 | | | | RED BLOOD CELLS | e | 11:35 AM | | | | | | PDT | | | + +--------+ + + + | HEMOGLOBIN AND | Routin | 11/18/2015 | | Results for this | | HEMATOCRIT | e | 5:06 AM | | procedure are in the | | | | PDT | | results section. | + +--------+ + + + | BASIC METABOLIC | Routin | 11/18/2015 | | Results for this | | PANEL | e | 5:06 AM | | procedure are in the | | | | PDT | | results section. | + +--------+ + + + | PRODUCT: RBC | Routin | 11/17/2015 | | Results for this | | | e | 7:15 AM | | procedure are in the | | | | PDT | | results section. | + +--------+ + + + | PRODUCT: RBC | Routin | 11/17/2015 | | Results for this | | | e | 7:15 AM | | procedure are in the | | | | PDT | | results section. | + +--------+ + + + | HEMOGLOBIN AND | Routin | 11/17/2015 | | Results for this | | HEMATOCRIT | e | 6:02 AM | | procedure are in the | | | | PDT | | results section. | + +--------+ + + + | BASIC METABOLIC | Routin | 11/17/2015 | | Results for this | | PANEL | e | 6:02 AM | | procedure are in the | | | | PDT | | results section. | + +--------+ + + + | RESPIRATORY THERAPY | Routin | 11/17/2015 | | | | COMMUNICATION | e | 12:31 AM | | | | | | PDT | | | + +--------+ + + + | FL MARVA STATS NO | Routin | 11/16/2015 | | Results for this | | CHARGE | e | 8:35 PM | | procedure are in the | | | | PDT | | results section. | + +--------+ + + + | XR HIP RIGHT 2-3 | Routin | 11/16/2015 | | Results for this | | VIEWS | e | 8:34 PM | | procedure are in the | | | | PDT | | results section. | + +--------+ + + + | HEMIARTHROPLASTY HIP | | 11/16/2015 | Closed fracture of | | | | | 6:12 PM | neck of right | | | | | PDT | femur, initial | | | | | | encounter (HCC) | | + +--------+ + + + | TRANSFUSE 2 UNITS | Routin | 11/16/2015 | | | | RED BLOOD CELLS | e | 5:54 PM | | | | | | PDT | | | + +--------+ + + + | TRANSFUSE 2 UNITS | Routin | 11/16/2015 | | | | RED BLOOD CELLS | e | 5:43 PM | | | | | | PDT | | | + +--------+ + + + | TYPE AND SCREEN | STAT | 11/16/2015 | | Results for this | | | | 3:29 PM | | procedure are in the | | | | PDT | | results section. | + +--------+ + + + | XR HIP RIGHT 2-3 | STAT | 11/16/2015 | | Results for this | | VIEWS | | 1:33 PM | | procedure are in the | | | | PDT | | results section. | + +--------+ + + + | XR CHEST AP PORTABLE | STAT | 11/16/2015 | | Results for this | | | | 1:33 PM | | procedure are in the | | | | PDT | | results section. | + +--------+ + + + | CBC W/AUTO | STAT | 11/16/2015 | | Results for this | | DIFFERENTIAL | | 1:00 PM | | procedure are in the | | | | PDT | | results section. | + +--------+ + + + | PTT | STAT | 11/16/2015 | | Results for this | | | | 1:00 PM | | procedure are in the | | | | PDT | | results section. | + +--------+ + + + | PROTIME INR | STAT | 11/16/2015 | | Results for this | | | | 1:00 PM | | procedure are in the | | | | PDT | | results section. | + +--------+ + + + | BASIC METABOLIC | STAT | 11/16/2015 | | Results for this | | PANEL | | 1:00 PM | | procedure are in the | | | | PDT | | results section. | + +--------+ + + + | ECG 12 LEAD | STAT | 11/16/2015 | | Results for this | | | | 12:56 PM | | procedure are in the | | | | PDT | | results section. | + +--------+ + + + documented in this encounter Results Hemoglobin and Hematocrit (11/19/2015 5:55 AM PDT) + + + + + + | Component | Value | Ref Range | Performed | Pathologist | | | | | At | Signature | + + + + + + | Hemoglobin | 9.5 (L) | 13.5 - 18.0 | [facility] | | | | | g/dL | [facility] | | | | | | [facility] | | | | | | C[facility] - | | | | | | LABORATORY | | + + + + + + | Hematocrit | 27.7 (L) | 40.0 - 51.0 % | [facility] | | | | | | [facility] | | | | | | [facility] | | | | | | CENTER - | | | | | | LABORATORY | | + + + + + + + + | Specimen | + + | Blood | + + + + + + + | Performing | Address | City/State/Zipcode | Phone Number | | Organization | | | | + + + + + | [facility] | [address] | [place] | [phone] | | [facility] | | [address] | | | - LABORATORY | | | | + + + + + Basic Metabolic Panel (11/19/2015 5:55 AM PDT) + + + + + + | Component | Value | Ref Range | Performed | Pathologist | | | | | At | Signature | + + + + + + | Na | 134 (L) | 136 - 149 | [facility] | | | | | mmol/L | [facility] | | | | | | [facility]ICAL | | | | | | CENTER - | | | | | | LABORATORY | | + + + + + + | K | 3.9 | 3.5 - 5.1 | [facility] | | | | | mmol/L | [facility] | | | | | | [facility]ICAL | | | | | | CENTER - | | | | | | LABORATORY | | + + + + + + | Cl | 103 | 98 - 109 mmol/L | [facility] | | | | | | [facility] | | | | | | [facility] | | | | | | CENTER - | | | | | | LABORATORY | | + + + + + + | CO2 | 26 | 24 - 31 mmol/L | [facility] | | | | | | [facility] | | | | | | [facility]ICAL | | | | | | CENTER - | | | | | | LABORATORY | | + + + + + + | Anion Gap | 5 | 3 - 16 mmol/L | [facility] | | | | | | [facility] | | | | | | MEDICAL | | | | | | CENTER - | | | | | | LABORATORY | | + + + + + + | Glucose | 134 (H) | 70 - 109 mg/dL | [facility] | | | | | | [facility] | | | | | | MEDICAL | | | | | | CENTER - | | | | | | LABORATORY | | + + + + + + | BUN | 21 (H) | 7 - 18 mg/dL | [facility] | | | | | | [facility] | | | | | | MEDICAL | | | | | | CENTER - | | | | | | LABORATORY | | + + + + + + | Creatinine | 1.17 | 0.60 - 1.30 | [facility] | | | | | mg/dL | [facility] | | | | | | MEDICAL | | | | | | CENTER - | | | | | | LABORATORY | | + + + + + + | eGFR if not | 60Comment: GLOMERULAR | >=60 | [facility] | | | | FILTRATION | mL/min/1.73m2 | [facility] | | | GUINEAN | RATE,ESTIMATED | | MEDICAL | | | | mL/min/1.51t4Yvbh than | | CENTER - | | | | 60 Chronic kidney | | LABORATORY | | | | disease,if found over a | | | | | | 3-month period.Less than | | | | | | 15 Kidney failureFor | | | | | | | | | | | | Americans,multiply the | | | | | | calculated GFR by 1.21. | | | | | | | | | | + + + + + + | Calcium | 8.2 (L) | 8.3 - 10.5 | [facility] | | | | | mg/dL | [facility] | | | | | | MEDICAL | | | | | | CENTER - | | | | | | LABORATORY | | + + + + + + | BUN/Creatin | 17.9 | | [facility] | | | ine Ratio | | | [facility] | | | | | | [facility] | | | | | | CENTER - | | | | | | LABORATORY | | + + + + + + + + | Specimen | + + | Blood | + + + + + + + | Performing | Address | City/State/Zipcode | Phone Number | | Organization | | | | + + + + + | [facility] | [address] | [place] | [phone] | | [facility] | | [address] | | | - LABORATORY | | | | + + + + + PRODUCT: RBC (11/19/2015 1:15 AM PDT) + + + + + + | Component | Value | Ref Range | Performed | Pathologist | | | | | At | Signature | + + + + + + | Product | RBC Leukocytes Reduced | | [facility] | | | Code | | | [facility] | | | | | | MEDICAL | | | | | | CENTER - | | | | | | BLOOD BANK | | + + + + + + | UNIT # | [id number] | | [facility] | | | | | | [facility] | | | | | | MEDICAL | | | | | | CENTER - | | | | | | BLOOD BANK | | + + + + + + | UNIT ABO | O | | [facility] | | | | | | [facility] | | | | | | MEDICAL | | | | | | CENTER - | | | | | | BLOOD BANK | | + + + + + + | UNIT RH | POS | | [facility] | | | | | | [facility] | | | | | | MEDICAL | | | | | | CENTER - | | | | | | BLOOD BANK | | + + + + + + | CROSSMATCH | Compatible | | [facility] | | | INTERP | | | [facility] | | | | | | MEDICAL | | | | | | CENTER - | | | | | | BLOOD BANK | | + + + + + + | Unit Status | Transfused | | [facility] | | | | | | [facility] | | | | | | MEDICAL | | | | | | CENTER - | | | | | | BLOOD BANK | | + + + + + + + + | Specimen | + + | | + + + + + + + | Performing | Address | City/State/Zipcode | Phone Number | | Organization | | | | + + + + + | [facility] | [address] | [place], [place] | | | [facility] | | [address] | | | - BLOOD BANK | | | | + + + + + PRODUCT: RBC (11/19/2015 1:15 AM PDT) + + + + + + | Component | Value | Ref Range | Performed | Pathologist | | | | | At | Signature | + + + + + + | Product | RBC Leukocytes Reduced | | [facility] | | | Code | | | [facility] | | | | | | [facility]ICAL | | | | | | CENTER - | | | | | | BLOOD BANK | | + + + + + + | UNIT # | [id number] | | [facility] | | | | | | [facility] | | | | | | [facility] | | | | | | CENTER - | | | | | | BLOOD BANK | | + + + + + + | UNIT ABO | O | | [facility] | | | | | | [facility] | | | | | | MEDICAL | | | | | | CENTER - | | | | | | BLOOD BANK | | + + + + + + | UNIT RH | POS | | [facility] | | | | | | [facility] | | | | | | [facility] | | | | | | CENTER - | | | | | | BLOOD BANK | | + + + + + + | CROSSMATCH | Compatible | | [facility] | | | INTERP | | | [facility] | | | | | | [facility] | | | | | | CENTER - | | | | | | BLOOD BANK | | + + + + + + | Unit Status | Transfused | | [facility] | | | | | | [facility] | | | | | | [facility] | | | | | | CENTER - | | | | | | BLOOD BANK | | + + + + + + + + | Specimen | + + | | + + + + + + + | Performing | Address | City/State/Zipcode | Phone Number | | Organization | | | | + + + + + | [facility] | [address] | [place] | | | [facility] | | [address] | | | - BLOOD BANK | | | | + + + + + CBC no Differential (11/18/2015 5:28 PM PDT) + + + + + + | Component | Value | Ref Range | Performed | Pathologist | | | | | At | Signature | + + + + + + | White Blood | 5.9 | 4.0 - 11.0 K/uL | [facility] | | | Cells | | | [facility] | | | | | | MEDICAL | | | | | | CENTER - | | | | | | LABORATORY | | + + + + + + | Red Blood | 2.93 (L) | 4.30 - 5.70 | [facility] | | | Cells | | M/uL | [facility] | | | | | | MEDICAL | | | | | | CENTER - | | | | | | LABORATORY | | + + + + + + | Hemoglobin | 9.2 (L) | 13.5 - 18.0 | [facility] | | | | | g/dL | [facility] | | | | | | [facility] | | | | | | CENTER - | | | | | | LABORATORY | | + + + + + + | Hematocrit | 27.1 (L) | 40.0 - 51.0 % | [facility] | | | | | | [facility] | | | | | | [facility] | | | | | | CENTER - | | | | | | LABORATORY | | + + + + + + | MCV | 92.2 | 83.0 - 101.0 fL | [facility] | | | | | | [facility] | | | | | | [facility] | | | | | | CENTER - | | | | | | LABORATORY | | + + + + + + | MCH | 31.5 | 28.0 - 35.0 pg | [facility] | | | | | | [facility] | | | | | | [facility] | | | | | | CENTER - | | | | | | LABORATORY | | + + + + + + | MCHC | 34.1 | 32.0 - 36.0 | [facility] | | | | | g/dL | [facility] | | | | | | MEDICAL | | | | | | CENTER - | | | | | | LABORATORY | | + + + + + + | RDW-CV | 19.4 (H) | <15.0 % | [facility] | | | | | | [facility] | | | | | | [facility]ICAL | | | | | | CENTER - | | | | | | LABORATORY | | + + + + + + | Platelet | 135 (L) | 140 - 440 K/uL | [facility] | | | Count | | | [facility] | | | | | | MEDICAL | | | | | | CENTER - | | | | | | LABORATORY | | + + + + + + | MPV | 7.4 | fL | [facility] | | | | | | [facility] | | | | | | [facility] | | | | | | CENTER - | | | | | | LABORATORY | | + + + + + + + + | Specimen | + + | Blood | + + + + + + + | Performing | Address | City/State/Zipcode | Phone Number | | Organization | | | | + + + + + | [facility] | [address] | [place] | [phone] | | [facility] | | [address] | | | - LABORATORY | | | | + + + + + Vitamin B-12 (11/18/2015 5:28 PM PDT) + + + + + + | Component | Value | Ref Range | Performed | Pathologist | | | | | At | Signature | + + + + + + | VITAMIN | 818Comment: DEFICIENT: | 180 - 914 pg/mL | [facility] | | | B-12 | <145 | | [facility] | | | | pg/mLINDETERMINATE: | | MEDICAL | | | | 145-180 pg/mL | | CENTER - | | | | | | LABORATORY | | + + + + + + + + | Specimen | + + | Blood | + + + + + + + | Performing | Address | City/State/Zipcode | Phone Number | | Organization | | | | + + + + + | [facility] | [address] | [place] | [phone] | | [facility] | | [address] | | | - LABORATORY | | | | + + + + + Folate (11/18/2015 5:28 PM PDT) + +-------+ + + + | Component | Value | Ref Range | Performed | Pathologist | | | | | At | Signature | + +-------+ + + + | FOLATE | 17.3 | >5.8 ng/mL | [facility] | | | | | | [facility] | | | | | | MEDICAL | | | | | | CENTER - | | | | | | LABORATORY | | + +-------+ + + + + + | Specimen | + + | Blood | + + + + + + + | Performing | Address | City/State/Zipcode | Phone Number | | Organization | | | | + + + + + | [facility] | [address] | [place] | [phone] | | [facility] | | [address] | | | - LABORATORY | | | | + + + + + Iron and Transferrin (11/18/2015 5:28 PM PDT) + + + + + + | Component | Value | Ref Range | Performed | Pathologist | | | | | At | Signature | + + + + + + | Iron | 18 (L) | 50 - 160 ug/dL | [facility] | | | | | | [facility] | | | | | | MEDICAL | | | | | | CENTER - | | | | | | LABORATORY | | + + + + + + | TRANSFERRIN | 128.0 (L) | 240.0 - 480.0 | [facility] | | | | | mg/dL | [facility] | | | | | | [facility]ICAL | | | | | | CENTER - | | | | | | LABORATORY | | + + + + + + | TIBC | 179 (L) | 235 - 425 ug/dL | [facility] | | | | | | [facility] | | | | | | [facility] | | | | | | CENTER - | | | | | | LABORATORY | | + + + + + + | % | 10.0 (L) | 20.0 - 55.0 % | [facility] | | | SATURATION | | | [facility] | | | | | | [facility]ICAL | | | | | | CENTER - | | | | | | LABORATORY | | + + + + + + + + | Specimen | + + | Blood | + + + + + + + | Performing | Address | City/State/Zipcode | Phone Number | | Organization | | | | + + + + + | [facility] | [address] | [place] | [phone] | | [facility] | | [address] | | | - LABORATORY | | | | + + + + + Hemoglobin and Hematocrit (11/18/2015 5:06 AM PDT) + + + + + + | Component | Value | Ref Range | Performed | Pathologist | | | | | At | Signature | + + + + + + | Hemoglobin | 7.4 (LL)Comment: | 13.5 - 18.0 | [facility] | | | | Critical Result called | g/dL | [facility] | | | | to and read back by | | MEDICAL | | | | Diane Samano on 11/18/2015 | | CENTER - | | | | at 5:50 by Jayro Carrasquillo | | LABORATORY | | | | Yesiki. | | | | + + + + + + | Hematocrit | 21.7 (L) | 40.0 - 51.0 % | [facility] | | | | [facility] | | | | | | [facility] | | | | | | CENTER - | | | | | | LABORATORY | | + + + + + + + + | Specimen | + + | Blood | + + + + + + + | Performing | Address | City/State/Zipcode | Phone Number | | Organization | | | | + + + + + | [facility] | [address] | [place] | [phone] | | [facility] | | [address] | | | - LABORATORY | | | | + + + + + Basic Metabolic Panel (11/18/2015 5:06 AM PDT) + + + + + + | Component | Value | Ref Range | Performed | Pathologist | | | | | At | Signature | + + + + + + | Na | 140 | 136 - 149 | [facility] | | | | | mmol/L | [facility] | | | | | | MEDICAL | | | | | | CENTER - | | | | | | LABORATORY | | + + + + + + | K | 4.0 | 3.5 - 5.1 | [facility] | | | | | mmol/L | [facility] | | | | | | MEDICAL | | | | | | CENTER - | | | | | | LABORATORY | | + + + + + + | Cl | 107 | 98 - 109 mmol/L | [facility] | | | | | | [facility] | | | | | | [facility]ICAL | | | | | | CENTER - | | | | | | LABORATORY | | + + + + + + | CO2 | 26 | 24 - 31 mmol/L | [facility] | [facility] | | | | | | [facility] | | | | | | CENTER - | | | | | | LABORATORY | | + + + + + + | Anion Gap | 7 | 3 - 16 mmol/L | [facility] | | | | | [facility] | | | | | | [facility] | | | | | | CENTER - | | | | | | LABORATORY | | + + + + + + | Glucose | 135 (H) | 70 - 109 mg/dL | [facility] | | | | | [facility] | | | | | | MEDICAL | | | | | | CENTER - | | | | | | LABORATORY | | + + + + + + | BUN | 23 (H) | 7 - 18 mg/dL | [facility] | | | | | [facility] | | | | | | [facility] | | | | | | CENTER - | | | | | | LABORATORY | | + + + + + + | Creatinine | 1.22 | 0.60 - 1.30 | [facility] | | | | | mg/dL | [facility] | | | | | | MEDICAL | | | | | | CENTER - | | | | | | LABORATORY | | + + + + + + | eGFR if not | 57 (L)Comment: | >=60 | [facility] | | | | GLOMERULAR FILTRATION | mL/min/1.73m2 | [facility] | | | [place] | RATE,ESTIMATED | | MEDICAL | | | | mL/min/1.98d5Oicd than | | CENTER - | | | | 60 Chronic kidney | | LABORATORY | | | | disease,if found over a | | | | | | 3-month period.Less than | | | | | | 15 Kidney failureFor | | | | | | | | | | | | Americans,multiply the | | | | | | calculated GFR by 1.21. | | | | | | | | | | + + + + + + | Calcium | 8.1 (L) | 8.3 - 10.5 | [facility] | | | | | mg/dL | [facility] | | | | | | [facility] | | | | | | CENTER - | | | | | | LABORATORY | | + + + + + + | BUN/Creatin | 18.9 | | [facility] | | | ine Ratio | | | [facility] | | | | | | MEDICAL | | | | | | CENTER - | | | | | | LABORATORY | | + + + + + + + + | Specimen | + + | Blood | + + + + + + + | Performing | Address | City/State/Zipcode | Phone Number | | Organization | | | | + + + + + | [facility] | [address] | [place] | [phone] | | [facility] | | [address] | | | - LABORATORY | | | | + + + + + PRODUCT: RBC (11/17/2015 7:15 AM PDT) + + + + + + | Component | Value | Ref Range | Performed | Pathologist | | | | | At | Signature | + + + + + + | Product | RBC Leukocytes Reduced | | [facility] | | | Code | | | [facility] | | | | | | MEDICAL | | | | | | CENTER - | | | | | | BLOOD BANK | | + + + + + + | UNIT # | [id number] | | [facility] | | | | | | [facility] | | | | | | [facility]ICAL | | | | | | CENTER - | | | | | | BLOOD BANK | | + + + + + + | UNIT ABO | O | | [facility] | | | | | [facility] | | | | | | MEDICAL | | | | | | CENTER - | | | | | | BLOOD BANK | | + + + + + + | UNIT RH | POS | | [facility] | | | | | | [facility] | | | | | | MEDICAL | | | | | | CENTER - | | | | | | BLOOD BANK | | + + + + + + | CROSSMATCH | Compatible | | [facility] | | | INTERP | | | [facility] | | | | | | [facility]ICAL | | | | | | CENTER - | | | | | | BLOOD BANK | | + + + + + + | Unit Status | Transfused | | [facility] | | | | | [facility] | | | | | | [facility]ICAL | | | | | | CENTER - | | | | | | BLOOD BANK | | + + + + + + + + | Specimen | + + | | + + + + + + + | Performing | Address | City/State/Zipcode | Phone Number | | Organization | | | | + + + + + | [facility] | [address] | [place] | | | [facility] | | [address] | | | - BLOOD BANK | | | | + + + + + PRODUCT: RBC (11/17/2015 7:15 AM PDT) + + + + + + | Component | Value | Ref Range | Performed | Pathologist | | | | | At | Signature | + + + + + + | Product | RBC Leukocytes Reduced | | [facility] | | | Code | | | [facility] | | | | | | MEDICAL | | | | | | CENTER - | | | | | | BLOOD BANK | | + + + + + + | UNIT # | [id number] | | [facility] | | | | | [facility] | | | | | | [facility]ICAL | | | | | | CENTER - | | | | | | BLOOD BANK | | + + + + + + | UNIT ABO | O | | [facility] | | | | | [facility] | | | | | | MEDICAL | | | | | | CENTER - | | | | | | BLOOD BANK | | + + + + + + | UNIT RH | POS | | [facility] | | | | | [facility] | | | | | | MEDICAL | | | | | | CENTER - | | | | | | BLOOD BANK | | + + + + + + | CROSSMATCH | Compatible | | [facility] | | | INTERP | | | [facility] | | | | | | [facility]ICAL | | | | | | CENTER - | | | | | | BLOOD BANK | | + + + + + + | Unit Status | Transfused | | [facility] | | | | | | [facility] | | | | | | MEDICAL | | | | | | CENTER - | | | | | | BLOOD BANK | | + + + + + + + + | Specimen | + + | | + + + + + + + | Performing | Address | City/State/Zipcode | Phone Number | | Organization | | | | + + + + + | [facility] | [address] | [place] | | | [facility] | | [address] | | | - BLOOD BANK | | | | + + + + + Hemoglobin and Hematocrit (11/17/2015 6:02 AM PDT) + + + + + + | Component | Value | Ref Range | Performed | Pathologist | | | | | At | Signature | + + + + + + | Hemoglobin | 8.4 (L) | 13.5 - 18.0 | [facility] | | | | | g/dL | [facility] | | | | | | MEDICAL | | | | | | CENTER - | | | | | | LABORATORY | | + + + + + + | Hematocrit | 24.5 (L) | 40.0 - 51.0 % | [facility] | | | | | | [facility] | | | | | | [facility]ICAL | | | | | | CENTER - | | | | | | LABORATORY | | + + + + + + + + | Specimen | + + | Blood | + + + + + + + | Performing | Address | City/State/Zipcode | Phone Number | | Organization | | | | + + + + + | [facility] | [address] | [place] | [phone] | | [facility] | | [address] | | | - LABORATORY | | | | + + + + + Basic Metabolic Panel (11/17/2015 6:02 AM PDT) + + + + + + | Component | Value | Ref Range | Performed | Pathologist | | | | | At | Signature | + + + + + + | Na | 142 | 136 - 149 | [facility] | | | | | mmol/L | [facility] | | | | | | MEDICAL | | | | | | CENTER - | | | | | | LABORATORY | | + + + + + + | K | 4.7 | 3.5 - 5.1 | [facility] | | | | | mmol/L | [facility] | | | | | | MEDICAL | | | | | | CENTER - | | | | | | LABORATORY | | + + + + + + | Cl | 110 (H) | 98 - 109 mmol/L | [facility] | | | | | | [facility] | | | | | | MEDICAL | | | | | | CENTER - | | | | | | LABORATORY | | + + + + + + | CO2 | 27 | 24 - 31 mmol/L | [facility] | | | | | | [facility] | | | | | | MEDICAL | | | | | | CENTER - | | | | | | LABORATORY | | + + + + + + | Anion Gap | 5 | 3 - 16 mmol/L | [facility] | | | | | | [facility] | | | | | | MEDICAL | | | | | | CENTER - | | | | | | LABORATORY | | + + + + + + | Glucose | 113 (H) | 70 - 109 mg/dL | [facility] | | | | | | [facility] | | | | | | MEDICAL | | | | | | CENTER - | | | | | | LABORATORY | | + + + + + + | BUN | 23 (H) | 7 - 18 mg/dL | [facility] | | | | | | [facility] | | | | | | MEDICAL | | | | | | CENTER - | | | | | | LABORATORY | | + + + + + + | Creatinine | 1.15 | 0.60 - 1.30 | [facility] | | | | | mg/dL | [facility] | | | | | | MEDICAL | | | | | | CENTER - | | | | | | LABORATORY | | + + + + + + | eGFR if not | >60Comment: GLOMERULAR | >=60 | [facility] | | | | FILTRATION | mL/min/1.73m2 | [facility] | | | [place] | RATE,ESTIMATED | | MEDICAL | | | | mL/min/1.94z2Bgku than | | CENTER - | | | | 60 Chronic kidney | | LABORATORY | | | | disease,if found over a | | | | | | 3-month period.Less than | | | | | | 15 Kidney failureFor | | | | | | | | | | | | Americans,multiply the | | | | | | calculated GFR by 1.21. | | | | | | | | | | + + + + + + | Calcium | 8.4 | 8.3 - 10.5 | [facility] | | | | | mg/dL | [facility] | | | | | | MEDICAL | | | | | | CENTER - | | | | | | LABORATORY | | + + + + + + | BUN/Creatin | 20.0 | | [facility] | | | ine Ratio | | | [facility] | | | | | | MEDICAL | | | | | | CENTER - | | | | | | LABORATORY | | + + + + + + + + | Specimen | + + | Blood | + + + + + + + | Performing | Address | City/State/Zipcode | Phone Number | | Organization | | | | + + + + + | [facility] | [address] | [place] | [phone] | | [facility] | | [address] | | | - LABORATORY | | | | + + + + + [place] C-Souleymane Stats No Charge (11/16/2015 8:35 PM PDT) + + | Specimen | + + | | + + + + + | Narrative | Performed At | + + + | No Radiologist interpretation, please see Chart Review. | [facility] | + + + + +---------+ + + | Performing | Address | City/State/Zipcode | Phone Number | | Organization | | | | + +---------+ + + | [facility] | | | | + +---------+ + + XR Hip Right 2-3 Views (11/16/2015 8:34 PM PDT) + + | Specimen | + + | | + + + + + | Narrative | Performed At | + + + | XR HIP RIGHT 2-3 VIEWS. 11/16/2015 8:34 PM HISTORY: intra op. | | | COMPARISON: 11/16/2015 FINDINGS/IMPRESSION - Intraoperative | | | fluoroscopic images demonstrate placement of right hip | | | hemiarthroplasty prosthesis. Cannulated screws of the proximal left | | | femur are also partly visualized. Please see operative report for | | | further information. Dictated and Signed by: Nitish Graves MD | | | Electronically signed: 11/17/2015 8:17 AM | | + + + + + | Procedure Note | + + | Jhon, Rad Results In - 11/17/2015 8:21 AM PDT XR HIP RIGHT 2-3 VIEWS. 11/16/2015 8:34 | | PMHISTORY: intra op.COMPARISON: 11/16/2015FINDINGS/IMPRESSION -Intraoperative | | fluoroscopic images demonstrate placement of right hiphemiarthroplasty prosthesis. | | Cannulated screws of the proximal left femur arealso partly visualized.Please see | | operative report for further information.Dictated and Signed by: Nitish Graves MD | | Electronically signed: 11/17/2015 8:17 AM | |FINDINGS/IMPRESSION - | |Intraoperative fluoroscopic images demonstrate placement of right hip | |hemiarthroplasty prosthesis. Cannulated screws of the proximal left femur are | |also partly visualized. | | | |Please see operative report for further information. | | | |Dictated and Signed by: Nitish Graves MD | | Electronically signed: 11/17/2015 8:17 AM | + + Type and Screen (11/16/2015 3:29 PM PDT) + + + + + + | Component | Value | Ref Range | Performed | Pathologist | | | | | At | Signature | + + + + + + | ABO | O | | [facility] | | | | | [facility] | | | | | | MEDICAL | | | | | | CENTER - | | | | | | BLOOD BANK | | + + + + + + | Rh Type | Positive | | [facility] | | | | | | [facility] | | | | | | MEDICAL | | | | | | CENTER - | | | | | | BLOOD BANK | | + + + + + + | Antibody | Negative | | [facility] | | | Screen | | | [facility] | | | | | | MEDICAL | | | | | | CENTER - | | | | | | BLOOD BANK | | + + + + + + + + | Specimen | + + | Blood specimen | | (specimen) | + + + + + + + | Performing | Address | City/State/Zipcode | Phone Number | | Organization | | | | + + + + + | [facility] | [address] | [place] | | | [facility] | | [address] | | | - BLOOD BANK | | | | + + + + + XR Hip Right 2-3 Views (11/16/2015 1:33 PM PDT) + + | Specimen | + + | | + + + + + | Narrative | Performed At | + + + | XR HIP RIGHT 2-3 VIEWS. 11/16/2015 1:33 PM HISTORY: HIP PAIN | | | FOOT PAIN. COMPARISON: CT abdomen pelvis 07/28/2007 FINDINGS: | | | There is a fracture through the right femoral neck, with some | | | impaction at the fracture site. Right femoral head is appropriately | | | situated relative to the acetabulum, with degenerative change at the | | | right hip. Three cannulated screws seen in the proximal left | | | femur, without evidence of residual fracture. Degenerative change | | | seen at the left hip, including some medial joint compartment | | | narrowing. 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 | | | Degenerative change seen symmetrically at bilateral SI joints. | | | There is appearance of osteopenia. Unremarkable overlying soft | | | tissues. IMPRESSION - Fracture through the right femoral neck, | | | with some impaction at the fracture site. Degenerative changes at | | | both hips, compatible with osteoarthritis. Prior instrumentation at | | | the left proximal femur, without evidence of residual fracture or | | | hardware complication. Dictated and Signed by: Nitish Graves | | | Electronically signed: 11/16/2015 3:14 PM | | + + + + + | Procedure Note | + + | Jhon, Rad Results In - 11/16/2015 3:17 PM PDT XR HIP RIGHT 2-3 VIEWS. 11/16/2015 1:33 | | PMHISTORY: HIP PAINFOOT PAIN.COMPARISON: CT abdomen pelvis 07/28/2007FINDINGS:There is a | | fracture through the right femoral neck, with some impaction at thefracture site. | | Right femoral head is appropriately situated relative to theacetabulum, with | | degenerative change at the right hip. Three cannulated screwsseen in the proximal left | | femur, without evidence of residual fracture. Degenerative change seen at the left hip, | | including some medial jointcompartment narrowing. Metallic seeds superimposed over the | | expected locationof the prostate, compatible with prior brachial therapy. Degenerative | | changeseen symmetrically at bilateral SI joints. There is appearance of osteopenia. | | Unremarkable overlying soft tissues.IMPRESSION -Fracture through the right femoral neck, | | with some impaction at the fracturesite.Degenerative changes at both hips, compatible | | with osteoarthritis.Prior instrumentation at the left proximal femur, without evidence | | of residualfracture or hardware complication. Dictated and Signed by: Nitish Graves, | | Electronically signed: 11/16/2015 3:14 PM | |of the prostate, compatible with prior brachial therapy. Degenerative change | |seen symmetrically at bilateral SI joints. There is appearance of osteopenia. | |Unremarkable overlying soft tissues. | | | | | |IMPRESSION - | |Fracture through the right femoral neck, with some impaction at the fracture | |site. | |Degenerative changes at both hips, compatible with osteoarthritis. | |Prior instrumentation at the left proximal femur, without evidence of residual | |fracture or hardware complication. | | | |Dictated and Signed by: Nitish Graves MD | | Electronically signed: 11/16/2015 3:14 PM | + + XR Chest AP Portable (11/16/2015 1:33 PM PDT) + + | Specimen | + + | | + + + + + | Narrative | Performed At | + + + | XR CHEST AP PORTABLE. 11/16/2015 1:33 PM HISTORY: HIP PAIN | [facility] | | FOOT PAIN . COMPARISON: None available. FINDINGS: Heart | | | size within normal limits for portable technique. There is | | | calcification of the ectatic aorta. Otherwise unremarkable | | | mediastinal contours. Lungs appear hyperinflated, with mild | | | increase in lucency in the upper lung zones, right greater than left. | | | Mild hazy opacification in the left midlung zone medially . | | | Left-sided rib fractures, likely old . No pleural effusion or | | | pneumothorax. No acute osseous or soft tissue abnormalities. | | | IMPRESSION - Mild hazy opacification in the left midlung zone | | | medially, nonspecific, possibly representing contusive change in the | | | setting of trauma, versus atelectasis, versus mild pneumonia. | | | Patient may benefit from PA and lateral x-ray of the chest. 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 | | | Dictated and Signed by: Nitish Graves MD Electronically | | | signed: 11/16/2015 3:21 PM | | + + + + + | Procedure Note | + + | Jhon, Rad Results In - 11/16/2015 3:24 PM PDT XR CHEST AP PORTABLE. 11/16/2015 1:33 | | PMHISTORY: HIP PAINFOOT PAIN . COMPARISON: None available.FINDINGS:Heart size within | | normal limits for portable technique. There is calcificationof the ectatic aorta. | | Otherwise unremarkable mediastinal contours. Lungsappear hyperinflated, with mild | | increase in lucency in the upper lung zones,right greater than left. Mild hazy | | opacification in the left midlung zonemedially . Left-sided rib fractures, likely old . | | No pleural effusion orpneumothorax. No acute osseous or soft tissue | | abnormalities.IMPRESSION -Mild hazy opacification in the left midlung zone medially, | | nonspecific, possiblyrepresenting contusive change in the setting of trauma, versus | | atelectasis,versus mild pneumonia. 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 Left-sided rib fractures, likely old . No pleural effusion or | |pneumothorax. No acute osseous or soft tissue abnormalities. | | | | | |IMPRESSION - | |Mild hazy opacification in the left midlung zone medially, nonspecific, possibly | |representing contusive change in the setting of trauma, versus atelectasis, | |versus mild pneumonia. Patient may benefit from PA and lateral x-ray of the | |chest. 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 | | | |Dictated and Signed by: Nitish Graves MD | | Electronically signed: 11/16/2015 3:21 PM | + + + +---------+ + + | Performing | Address | City/State/Zipcode | Phone Number | | Organization | | | | + +---------+ + + | [facility] | | | | + +---------+ + + PTT (11/16/2015 1:00 PM PDT) + +--------+ + + + | Component | Value | Ref Range | Performed | Pathologist | | | | | At | Signature | + +--------+ + + + | aPTT | 39 (H) | 22 - 36 seconds | [facility] | | | | [facility] | | | | | | MEDICAL | | | | | | CENTER - | | | | | | LABORATORY | | + +--------+ + + + + + | Specimen | + + | Blood | + + + + + + + | Performing | Address | City/State/Zipcode | Phone Number | | Organization | | | | + + + + + | [facility] | [address] | [place] | [phone] | | [facility] | | [address] | | | - LABORATORY | | | | + + + + + Protime INR (11/16/2015 1:00 PM PDT) + + + + + + | Component | Value | Ref Range | Performed | Pathologist | | | | | At | Signature | + + + + + + | Prothrombin | 15.6 (H) | 11.3 - 13.9 | [facility] | | | Time | | seconds | [facility] | | | | | | MEDICAL | | | | | | CENTER - | | | | | | LABORATORY | | + + + + + + | INR | 1.18 (H)Comment: Usual | 0.90 - 1.10 | [facility] | | | | Oral Anticoagulation | | [facility] | | | | Range: 2.0 - | | MEDICAL | | | | 3.0High Level Oral | | CENTER - | | | | Anticoagulation Range: | | LABORATORY | | | | 2.5 - 3.5 | | | | + + + + + + + + | Specimen | + + | Blood | + + + + + + + | Performing | Address | City/State/Zipcode | Phone Number | | Organization | | | | + + + + + | [facility] | [address] | [place] | [phone] | | [facility] | | [address] | | | - LABORATORY | | | | + + + + + Basic Metabolic Panel (11/16/2015 1:00 PM PDT) + + + + + + | Component | Value | Ref Range | Performed | Pathologist | | | | | At | Signature | + + + + + + | Na | 145 | 136 - 149 | [facility] | | | | | mmol/L | [facility] | | | | | | MEDICAL | | | | | | CENTER - | | | | | | LABORATORY | | + + + + + + | K | 4.2 | 3.5 - 5.1 | [facility] | | | | | mmol/L | [facility] | | | | | | MEDICAL | | | | | | CENTER - | | | | | | LABORATORY | | + + + + + + | Cl | 109 | 98 - 109 mmol/L | [facility] | | | | | | [facility] | | | | | | MEDICAL | | | | | | CENTER - | | | | | | LABORATORY | | + + + + + + | CO2 | 26 | 24 - 31 mmol/L | [facility] | | | | | | [facility] | | | | | | MEDICAL | | | | | | CENTER - | | | | | | LABORATORY | | + + + + + + | Anion Gap | 10 | 3 - 16 mmol/L | [facility] | | | | | | [facility] | | | | | | MEDICAL | | | | | | CENTER - | | | | | | LABORATORY | | + + + + + + | Glucose | 113 (H) | 70 - 109 mg/dL | [facility] | | | | | | [facility] | | | | | | MEDICAL | | | | | | CENTER - | | | | | | LABORATORY | | + + + + + + | BUN | 27 (H) | 7 - 18 mg/dL | [facility] | | | | | | [facility] | | | | | | MEDICAL | | | | | | CENTER - | | | | | | LABORATORY | | + + + + + + | Creatinine | 1.21 | 0.60 - 1.30 | [facility] | | | | | mg/dL | [facility] | | | | | | MEDICAL | | | | | | CENTER - | | | | | | LABORATORY | | + + + + + + | eGFR if not | 57 (L)Comment: | >=60 | [facility] | | | | GLOMERULAR FILTRATION | mL/min/1.73m2 | [facility] | | | [place] | RATE,ESTIMATED | | MEDICAL | | | | mL/min/1.30t5Twjq than | | CENTER - | | | | 60 Chronic kidney | | LABORATORY | | | | disease,if found over a | | | | | | 3-month period.Less than | | | | | | 15 Kidney failureFor | | | | | | | | | | | | Americans,multiply the | | | | | | calculated GFR by 1.21. | | | | | | | | | | + + + + + + | Calcium | 9.4 | 8.3 - 10.5 | [facility] | | | | | mg/dL | [facility] | | | | | | MEDICAL | | | | | | CENTER - | | | | | | LABORATORY | | + + + + + + | BUN/Creatin | 22.3 | | [facility] | | | ine Ratio | | | [facility] | | | | | | MEDICAL | | | | | | CENTER - | | | | | | LABORATORY | | + + + + + + + + | Specimen | + + | Blood | + + + + + + + | Performing | Address | City/State/Zipcode | Phone Number | | Organization | | | | + + + + + | [facility] | [address] | [place] | [phone] | | [facility] | | [address] | | | - LABORATORY | | | | + + + + + CBC w/ Auto Differential (11/16/2015 1:00 PM PDT) + + + + + + | Component | Value | Ref Range | Performed | Pathologist | | | | | At | Signature | + + + + + + | White Blood | 4.5 | 4.0 - 11.0 K/uL | [facility] | | | Cells | | | [facility] | | | | | | MEDICAL | | | | | | CENTER - | | | | | | LABORATORY | | + + + + + + | Red Blood | 2.61 (L) | 4.30 - 5.70 | [facility] | | | Cells | | M/uL | [facility] | | | | | | MEDICAL | | | | | | CENTER - | | | | | | LABORATORY | | + + + + + + | Hemoglobin | 8.7 (L) | 13.5 - 18.0 | [facility] | | | | | g/dL | [facility] | | | | | | MEDICAL | | | | | | CENTER - | | | | | | LABORATORY | | + + + + + + | Hematocrit | 25.9 (L) | 40.0 - 51.0 % | [facility] | | | | | | [facility] | | | | | | MEDICAL | | | | | | CENTER - | | | | | | LABORATORY | | + + + + + + | MCV | 99.0 | 83.0 - 101.0 fL | [facility] | | | | | | [facility] | | | | | | [facility] | | | | | | CENTER - | | | | | | LABORATORY | | + + + + + + | MCH | 33.2 | 28.0 - 35.0 pg | [facility] | | | | | | [facility] | | | | | | [facility]ICAL | | | | | | CENTER - | | | | | | LABORATORY | | + + + + + + | MCHC | 33.5 | 32.0 - 36.0 | [facility] | | | | | g/dL | [facility] | | | | | | [facility] | | | | | | CENTER - | | | | | | LABORATORY | | + + + + + + | RDW-CV | 17.9 (H) | <15.0 % | [facility] | | | | | | [facility] | | | | | | [facility] | | | | | | CENTER - | | | | | | LABORATORY | | + + + + + + | Platelet | 160 | 140 - 440 K/uL | [facility] | | | Count | | | [facility] | | | | | | MEDICAL | | | | | | CENTER - | | | | | | LABORATORY | | + + + + + + | MPV | 7.6 | fL | [facility] | | | | | | [facility] | | | [facility] | | | [facility] - | | | | | | LABORATORY | | + + + + + + | % | 78.6 | 45.0 - 82.0 % | [facility] | | | Neutrophils | | | [facility] | | | | | | [facility] | | | | | | [facility] - | | | | | | LABORATORY | | + + + + + + | % | 12.9 (L) | 20.0 - 45.0 % | [facility] | | | Lymphocytes | | | [facility] | | | | | | [facility] | | | | [facility] | [facility] - | | | | | | LABORATORY | | + + + + + + | % Monocytes | 7.4 | 4.0 - 12.0 % | [facility] | | | | | | [facility] | | | | | | [facility] | | | | | [facility] - | | | | | | LABORATORY | | + + + + + + | % | 0.5 | 0.0 - 5.0 % | [facility] | | | Eosinophils | | | [facility] | | | | | | [facility] | | | | | | [facility] - | | | | | | LABORATORY | | + + + + + + | % Basophils | 0.6 | 0.0 - 1.0 % | [facility] | | | | | | [facility] | | | | [facility] | [facility] | | | | | | [facility] - | | | | | | LABORATORY | | + + + + + + | Absolute | 3.60 | 1.80 - 8.50 | [facility] | | | Neutrophils | | K/uL | [facility] | | | | | | [facility] | | | | | | [facility] - | | | | | | LABORATORY | | + + + + + + | Absolute | 0.60 | 0.60 - 3.20 | [facility] | | | Lymphocytes | | K/uL | [facility] | | | | | | [facility] | | | | | | [facility] - | | | | | | LABORATORY | | + + + + + + | Absolute | 0.30 | 0.00 - 1.00 | [facility] | | | Monocytes | | K/uL | [facility] | | | | | | [facility] | | | | | | [facility] - | | | | | | LABORATORY | | + + + + + + | Absolute | 0.00 | 0.00 - 0.40 | [facility] | | | Eosinophils | | K/uL | [facility] | [facility] | [facility] | [facility] | | | | | | CENTER - | | | | | | LABORATORY | | + + + + + + | Absolute | 0.00 | 0.00 - 0.10 | [facility] | | | Basophils | | K/uL | [facility] | | | [facility] | [facility] | | | | | | CENTER - | | | | | | LABORATORY | | + + + + + + + + | Specimen | + + | Blood | + + + + + + + | Performing | Address | City/State/Zipcode | Phone Number | | Organization | | | | + + + + + | [facility] | [address] | [place] | [phone] | | [facility] | | [address] | | | - LABORATORY | | | | + + + + + ECG 12 lead (11/16/2015 12:56 PM PDT) + + + + + + | Component | Value | Ref Range | Performed | Pathologist | | | | | At | Signature | + + + + + + | VENTRICULAR | 62 | BPM | [facility] | | | RATE EKG | | | | | + + + + + + | ATRIAL RATE | 62 | BPM | [facility] | | + + + + + + | P-R | 170 | ms | [facility] | | | INTERVAL | | | | | + + + + + + | QRS | 130 | ms | [facility] | | | DURATION | | | | | + + + + + + | Q-T | 430 | ms | [facility] | | | INTERVAL | | | | | + + + + + + | Q-T | 436 | ms | [facility] | | | INTERVAL | | | | | | (CORRECTED) | | | | | + + + + + + | P WAVE AXIS | 71 | degrees | [facility] | | + + + + + + | QRS AXIS | 34 | degrees | [facility] | | + + + + + + | T AXIS | 53 | degrees | [facility] | | + + + + + + | INTERPRETAT | Normal sinus | | [facility] | | | ION TEXT | rhythmNonspecific | | | | | | intraventricular | | | | | | blockLateral infarct , | | | | | | age undeterminedAbnormal | | | | | | ECGNo previous ECGs | | | | | | availableConfirmed by | | | | | | BRITTANI ALMONTE MD ([id number]) | | | | | | on 11/17/2015 6:40:29 AM | | | | + + + + + + + + | Specimen | + + | | + + + + + | Narrative | Performed At | + + + | | | + + + + +---------+ + + | Performing | Address | City/State/Zipcode | Phone Number | | Organization | | | | + +---------+ + + | [facility] | | | | + +---------+ + + documented in this encounter Visit Diagnoses + + | Diagnosis | + + | Closed fracture of neck of right femur, initial encounter (HCC) | + + documented in this encounter Administered Medications + +--------+ +--------+------+------+ | Medication Order | MAR | Action | Dose | Rate | Site | | | Action | Date | | | | + +--------+ +--------+------+------+ | acetaminophen (TYLENOL) tablet | Given | 11/18/19 | 650 mg | | | | 650 mg 650 mg, Oral, EVERY 6 | | 16 4:27 | | | | | HOURS PRN, Pain, Starting Fri | | PM PDT | | | | | 11/17/15 at 1524 | | | | | | + +--------+ +--------+------+------+ +-------+ +--------+---+---+ | Given | 11/17/19 | 650 mg | | | | | 16 3:46 | | | | | | PM PDT | | | | +-------+ +--------+---+---+ +---+---+ | | | +---+---+ + +-------+ +-------+---+---+ | aspirin chewable tablet 81 mg | Given | 11/19/19 | 81 mg | | | | 81 mg, Oral, DAILY, First dose on | | 16 10:36 | | | | | 11/17/15 at 0900 | | AM PDT | | | | + +-------+ +-------+---+---+ +-------+ +-------+---+---+ | Given | 11/18/19 | 81 mg | | | | | 16 9:14 | | | | | | AM PDT | | | | +-------+ +-------+---+---+ | Given | 11/17/19 | 81 mg | | | | | 16 8:35 | | | | | | AM PDT | | | | +-------+ +-------+---+---+ +---+---+ | | | +---+---+ + +-------+ +-------+---+---+ | atorvaSTATin (LIPITOR) tablet | Given | 06/25/20 | 80 mg | | | | 80 mg 80 mg, Oral, NIGHTLY, | | 16 10:32 | | | | | First dose on [facility] 11/16/15 at 2215 | | PM PDT | | | | + +-------+ +-------+---+---+ +-------+ +-------+---+---+ | Given | 11/17/19 | 80 mg | | | | | 16 8:47 | | | | | | PM PDT | | | | +-------+ +-------+---+---+ | Given | 11/16/19 | 80 mg | | | | | 16 10:35 | | | | | | PM PDT | | | | +-------+ +-------+---+---+ +---+---+ | | | +---+---+ + +-------+ +--------+---+ + | bupivacaine (liposomal) | Given | 11/16/19 | 20 mLs | | [facility] | | (EXPAREL) 1.3% injection PRN, | | 16 8:30 | | | t | | Starting [facility] 11/16/15 at 2015, | | PM PDT | | | | | Intra-op | | | | | | + +-------+ +--------+---+ + +---+---+ | | | +---+---+ + +-------+ +-------+---+---+ | clopidogrel (PLAVIX) tablet 75 | Given | 11/19/19 | 75 mg | | | | mg 75 mg, Oral, DAILY, First | | 16 10:36 | | | | | dose on Fri11/17/15 at 0900 | | AM PDT | | | | + +-------+ +-------+---+---+ +-------+ +-------+---+---+ | Given | 11/18/19 | 75 mg | | | | | 16 9:13 | | | | | | AM PDT | | | | +-------+ +-------+---+---+ | Given | 11/17/19 | 75 mg | | | | | 16 8:35 | | | | | | AM PDT | | | | +-------+ +-------+---+---+ +---+---+ | | | +---+---+ + +-------+ +--------+---+---+ | docusate sodium (COLACE) | Given | 11/19/19 | 200 mg | | | | capsule 200 mg 200 mg, Oral, 2 | | 16 10:35 | | | | | TIMES DAILY, First dose on [facility] | | AM PDT | | | | | 11/16/15 at 2215, First line agent | | | | | | | for constipation, Post-op/Phase | | | | | | | II | | | | | | + +-------+ +--------+---+---+ +-------+ +--------+---+---+ | Given | 11/18/19 | 200 mg | | | | | 16 10:32 | | | | | | PM PDT | | | | +-------+ +--------+---+---+ | Given | 11/18/19 | 200 mg | | | | | 16 9:13 | | | | | | AM PDT | | | | +-------+ +--------+---+---+ +---+---+ | | | +---+---+ + +-------+ +--------+---+ + | EPINEPHrine 1 mg/mL injection | Given | 11/16/19 | 0.3 mg | | [facility] | | PRN, Starting [facility] 11/16/15 at | | 16 8:11 | | | t | | 1951, Intra-op | | PM PDT | | | | + +-------+ +--------+---+ + +---+---+ | | | +---+---+ + +-------+ +-------+---+ + | ketorolac (TORADOL) injection | Given | 11/16/19 | 30 mg | | [facility] | | PRN, Starting [facility] 11/16/15 at | | 16 8:11 | | | t | | 1940, Intra-op | | PM PDT | | | | + +-------+ +-------+---+ + +---+---+ | | | +---+---+ + +-------+ +-------+---+---+ | pantoprazole (PROTONIX) DR | Given | 11/19/19 | 40 mg | | | | tablet 40 mg 40 mg, Oral, DAILY | | 16 6:44 | | | | | BEFORE BREAKFAST, First dose on | | AM PDT | | | | | 11/17/15 at 0730, Do not cut | | | | | | | or crush., Post-op/Phase II | | | | | | + +-------+ +-------+---+---+ +-------+ +-------+---+---+ | Given | 11/18/19 | 40 mg | | | | | 16 6:35 | | | | | | AM PDT | | | | +-------+ +-------+---+---+ | Given | 11/17/19 | 40 mg | | | | | 16 6:49 | | | | | | AM PDT | | | | +-------+ +-------+---+---+ +---+---+ | | | +---+---+ + +-------+ +--------+---+ + | ropivacaine (NAROPIN) 2 mg/mL | Given | 11/16/19 | 59 mLs | | [facility] | | (0.2%) injection PRN, Starting | | 16 8:11 | | | t | | [facility] 11/16/15 at 1940, Intra-op | | PM PDT | | | | + +-------+ +--------+---+ + +---+---+ | | | +---+---+ + +-------+ +--------+---+ + | sodium chloride bacteriostatic | Given | 11/16/19 | 30 mLs | | [facility] | | 0.9% injection PRN, Starting [facility] | | 16 8:30 | | | t | | 11/16/15 at 2015, Intra-op | | PM PDT | | | | + +-------+ +--------+---+ + +---+---+ | | | +---+---+ documented in this encounter
--- OUTSIDE RECORDS SUMMARY | ~2019-12-09 | XMS | Encounter Summary ---
Demographics + + + | Address | [address] | | | [place] [address] | + + + | Home Phone | | + + + | Preferred Language | Unknown | + + + | Marital Status | | + + + | Confucianist Affiliation | Unknown | + + + | Race | White | + + + | Ethnic Group | Not or | + + + Author + + + | Author | [facility] | + + + | Organization | [facility] | + + + | Address | Unknown | + + + | Phone | Unavailable | + + + Support + + +---------+ + | Name | Relationship | Address | Phone | + + +---------+ + | Sandy Zamora | ECON | Unknown | | + + +---------+ + Care Team Providers + +------+ + | Care Director Food Safety Name | Role | Phone | + [...] [address] | | | | | | [place], [place] | | | | | | [address] | | | +--------+ + + + [...]
--- OUTSIDE RECORDS SUMMARY | ~2019-12-09 | XMS | Encounter Summary ---
Demographics + + + | Address | [address] | | | [place] [address] | + + + | Home Phone | | + + + | Preferred Language | Unknown | + + + | Marital Status | | + + + | Yazdanism Affiliation | 1041 | + + + | Race | Unknown | + + + | Ethnic Group | Unknown | + + + Author + + + | Author | [facility] | | | and [place] | + + + | Organization | [facility] | | | and [place] | + + + | Address | Unknown | + + + | Phone | Unavailable | + + + Support + + + + + | Name | Relationship | Address | Phone | + + + + + | Lesia Castaneda | ECON | [address] | | | | | [place] [address] | | + + + + + | Rosina Castaneda | ECON | Unknown | | + + + + + | Sandy Zamora | ECON | [address] | | | | | [address] | | | | | [address] | | + + + + + Care Team Providers + +------+ + | Care Terra Cotta Mold Maker Name | Role | Phone | + +------+ + PCP | Unavailable | + +------+ + Encounter Details +--------+ + + + + | Date | Type | Department | Care Team | Description | +--------+ + + + + | 07/27/ | Hospital | [facility] | | | | 2007 - | Encounter | [facility] | | | | | | CENTER [address] | | | | 08/23/ | | [place] | | | | 2007 | | [address] | | | | | | [phone] | | | +--------+ + + + [...] [facility] | | | | | | [place], [place] | | | | | | [address] | | | | | | | | +--------+---------+ + + + documented as of this encounter Visit Diagnoses Not on filedocumented in this encounter"
--- OUTSIDE RECORDS SUMMARY | ~2019-12-09 | XMS | Encounter Summary ---
Demographics + + + | Address | [address] | | | [place] [address] | + + + | Home Phone | | + + + | Preferred Language | Unknown | + + + | Marital Status | | + + + | Anabaptism Affiliation | 1041 | + + + | Race | Unknown | + + + | Ethnic Group | Unknown | + + + Author + + + | Author | [facility] | | | and [place] | + + + | Organization | [facility] | | | and [place] | + + + | Address | Unknown | + + + | Phone | Unavailable | + + + Support + + + + + | Name | Relationship | Address | Phone | + + + + + | Lesia Castaneda | ECON | [address] | | | | | [place] [address] | | + + + + + | Rosina Castaneda | ECON | Unknown | | + + + + + | Sandy Zamora | ECON | [address] | | | | [place] | | | | | [address] | | + + + + + Care Team Providers + +------+ + | Care Instrumentation And Controls Technician Name | Role | Phone | + +------+ + | Jerome Ray | PCP | | | MD | | | + +------+ + Encounter Details +--------+ + + + + | Date | Type | Department | Care Team | Description | +--------+ + + + + | 06/30/ | Hospital | [facility] | Demond Castellon | | | 2013 | Encounter | [facility] | [facility] [address] | | | | | [place] [address] | [facility] | | | | | [place], [place] | [place] [address] | | | | | [address] | [phone] | | | | | [phone] | | | +--------+ + + + [...] [place] | | | | | | [address] | | | | | | | | +--------+---------+ + + + documented as of this encounter Procedures + +--------+ + + + | Procedure Name | Priori | Date/Time | Associated Diagnosis | Comments | | | ty | | | | + +--------+ + + + | PSA, DIAGNOSTIC | Routin | 06/30/2013 | | Results for this | | | e | 2:50 PM | | procedure are in the | | | | PST | | results section. | + +--------+ + + + | VITAMIN D, | Routin | 06/30/2013 | | Results for this | | DEFICIENCY SCREEN | e | 1:32 PM | | procedure are in the | | (25-HYDROXY) | | PST | | results section. | + +--------+ + + + | CBC WITH | Routin | 06/30/2013 | | Results for this | | DIFFERENTIAL | e | 1:32 PM | | procedure are in the | | | | PST | | results section. | + +--------+ + + + | COMPREHENSIVE | Routin | 06/30/2013 | | Results for this | | METABOLIC PANEL | e | 1:32 PM | | procedure are in the | | | | PST | | results section. | + +--------+ + + + documented in this encounter Results PSA, Diagnostic (06/30/2013 2:50 PM PST) + + + + + + | Component | Value | Ref Range | Performed | Pathologist | | | | | At | Signature | + + + + + + | PSA, Total | 3.33Comment: After | 0.00 - 4.00 | [facility] | | | | radical prostatectomy, a | ng/mL | [facility] | | | | PSA value of <0.05 | | MEDICAL | | | | ng/mL indicates no | | CENTER - | | | | detectable residual | | LABORATORY | | | | disease. Testing | | | | | | performed on the Tiffanie | | | | | | Lebeau Access | | | | | | Analyzer. | | | | + + + + + + + + | Specimen | + + | | + + + + + + + | Performing | Address | City/State/Zipcode | Phone Number | | Organization | | | | + + + + + | [facility] | [address] | [place], [place] | [phone] | | [facility] | | [address] | | | - LABORATORY | | | | + + + + + | [facility] | [address] | [place] | | | [facility] | | [address] | | | - LABORATORY | | | | + + + + + CBC with Differential (06/30/2013 1:32 PM PST) + + + + + + | Component | Value | Ref Range | Performed | Pathologist | | | | | At | Signature | + + + + + + | MANUAL | NO | | [facility] | | | DIFFERENTIA | | | [facility] | | | L ? | | | MEDICAL | | | | | | CENTER - | | | | | | LABORATORY | | + + + + + + | White Blood | 4.3 | 4.0 - 11.0 K/uL | [facility] | | | Cells | | | [facility] | | | | | | MEDICAL | | | | | | CENTER - | | | | | | LABORATORY | | + + + + + + | Red Blood | 2.96 (L) | 4.30 - 5.70 | [facility] | | | Cells | | M/uL | [facility] | | | | | | MEDICAL | | | | | | CENTER - | | | | | | LABORATORY | | + + + + + + | Hemoglobin | 10.1 (L) | 13.5 - 18.0 | [facility] | | | | | gm/dL | [facility] | | | | | | MEDICAL | | | | | | CENTER - | | | | | | LABORATORY | | + + + + + + | Hematocrit | 28.0 (L) | 40.0 - 51.0 % | [facility] | | | | | | [facility] | | | | | | MEDICAL | | | | | | CENTER - | | | | | | LABORATORY | | + + + + + + | MCV | 94.4 | 83.0 - 101.0 fL | [facility] | | | | | | [facility] | | | | | | MEDICAL | | | | | | CENTER - | | | | | | LABORATORY | | + + + + + + | MCH | 34.2 | 28.0 - 35.0 pg | [facility] | | | | | | [facility] | | | | | | MEDICAL | | | | | | CENTER - | | | | | | LABORATORY | | + + + + + + | MCHC | 36.2 (H) | 32.0 - 36.0 | [facility] | | | | | g/dL | [facility] | | | | | | MEDICAL | | | | | | CENTER - | | | | | | LABORATORY | | + + + + + + | RDW-CV | 18.6 (H) | <15.0 % | [facility] | | | | | | [facility] | | | | | | MEDICAL | | | | | | CENTER - | | | | | | LABORATORY | | + + + + + + | Platelet | 187 | 140 - 440 K/uL | [facility] | | | Count | | | [facility] | | | | | | MEDICAL | | | | | | CENTER - | | | | | | LABORATORY | | + + + + + + | % | 75.1 (H) | 45 - 75 % | [facility] | | | Neutrophils | | | [facility] | | | | | | MEDICAL | | | | | | CENTER - | | | | | | LABORATORY | | + + + + + + | % | 15.4 (L) | 20 - 45 % | [facility] | | | Lymphocytes | | | [facility] | | | | | | MEDICAL | | | | | | CENTER - | | | | | | LABORATORY | | + + + + + + | % Monocytes | 6.6 | 4 - 12 % | [facility] | | | | | | [facility] | | | | | | MEDICAL | | | | | | CENTER - | | | | | | LABORATORY | | + + + + + + | % | 1.7 | 0 - 5 % | [facility] | | | Eosinophils | | | [facility] | | | | | | MEDICAL | | | | | | CENTER - | | | | | | LABORATORY | | + + + + + + | % Basophils | 1.2 (H) | 0 - 1 % | [facility] | | | | | | [facility] | | | | | | MEDICAL | | | | | | CENTER - | | | | | | LABORATORY | | + + + + + + | Absolute | 3.2 | 1.5 - 6.6 K/uL | [facility] | | | Neutrophils | | | [facility] | | | | | | MEDICAL | | | | | | CENTER - | | | | | | LABORATORY | | + + + + + + | Absolute | 0.7 | 0.6 - 3.2 K/uL | [facility] | | | Lymphocytes | | | [facility] | | | | | | MEDICAL | | | | | | CENTER - | | | | | | LABORATORY | | + + + + + + | Absolute | 0.3 | 0.0 - 1.0 K/uL | [facility] | | | Monocytes | | | [facility] | | | | | | MEDICAL | | | | | | CENTER - | | | | | | LABORATORY | | + + + + + + | Absolute | 0.1 | 0.0 - 0.4 K/uL | [facility] | | | Eosinophils | | | [facility] | | | | | | MEDICAL | | | | | | CENTER - | | | | | | LABORATORY | | + + + + + + | Absolute | 0.1 | 0.0 - 0.1 K/uL | [facility] | | | Basophils | | | [facility] | | [...] + | [facility] | [address] | [place], [place] | [phone] | | [facility] | | [address] | | | - LABORATORY | | | | + + + + + | [facility] | [address] | [place], [place] | | | [facility] | | [address], [facility] | | | - LABORATORY | | | | + + + + + Vitamin D, 25-Hydroxy (06/30/2013 1:32 PM PST) + + + + + + | Component | Value | Ref Range | Performed | Pathologist | | | | | At | Signature | + + + + + + | Vitamin D, | 38Comment: <20 ng/mL | 30 - 100 ng/mL | [facility] | | | 25 Hydroxy | Suggests deficiency of | | [facility] | | | | 25-OH Vitamin D. 20-29 | | MEDICAL | | | | ng/mL Suggests a | | CENTER - | | | | relative insufficiency | | LABORATORY | | | | of 25-OH Vitamin D. | | | | | | 30-100 ng/mL Suggests | | | | | | a sufficient level of | | | | | | 25-OH Vitamin D. >100 | | | | | | ng/mL Potentially Toxic | | | | | | level of 25-OH Vitamin | | | | | | D. Blood levels of | | | | | | 25-OH vitamin D vary | | | | | | with the extent of sun | | | | | | exposure. Values tend | | | | | | to be highest in late | | | | | | summer and lowest in | | | | | | spring. Values also tend | | | | | | to decrease with age, | | | | | | due to decreased | | | | | | precursor synthesis in | | | | | | the skin. | | | | + + + + + + + + | Specimen | + + | | + + + + + + + | Performing | Address | City/State/Zipcode | Phone Number | | Organization | | | | + + + + + | [facility] | [address] | [place], [place] | [phone] | | [facility] | | [address] | | | - LABORATORY | | | | + + + + + | [facility] | [address] | [place], [place] | | | [facility] | | [address] | | | - LABORATORY | | | | + + + + + Comprehensive Metabolic Panel (06/30/2013 1:32 PM PST) + + + + + + | Component | Value | Ref Range | Performed | Pathologist | | | | | At | Signature | + + + + + + | Glucose | 133 (H) | 70 - 109 mg/dL | [facility] | | | | | | [facility] | | | | | | MEDICAL | | | | | | CENTER - | | | | | | LABORATORY | | + + + + + + | Calcium | 9.1 | 8.3 - 10.5 | [facility] | | | | | mg/dL | [facility] | | | | | | MEDICAL | | | | | | CENTER - | | | | | | LABORATORY | | + + + + + + | Alkaline | 108 | 40 - 110 IU/L | [facility] | | | Phosphatase | | | [facility] | | | | | | MEDICAL | | | | | | CENTER - | | | | | | LABORATORY | | + + + + + + | AST | 14 | 10 - 42 IU/L | [facility] | | | | | | [facility] | | | | | | MEDICAL | | | | | | CENTER - | | | | | | LABORATORY | | + + + + + + | ALT | 8 | 6 - 45 IU/L | [facility] | | | | | | [facility] | | | [facility] | | MEDICAL | | | | | | CENTER - | | | | | | LABORATORY | | + + + + + + | Bilirubin | 2.4 (H) | 0.2 - 1.0 mg/dL | [facility] | | | Total | | | [facility] | | | | | | MEDICAL | | | | | | CENTER - | | | | | | LABORATORY | | + + + + + + | Total | 6.8 | 6.0 - 7.8 gm/dL | [facility] | | | Protein | | | [facility] | | | | | | MEDICAL | | | | | | CENTER - | | | | | | LABORATORY | | + + + + + + | Albumin | 4.1 | 3.2 - 5.0 gm/dL | [facility] | | | | | | [facility] | | | [facility] | | MEDICAL | | | | | | CENTER - | | | | | | LABORATORY | | + + + + + + | BUN | 24 (H) | 7 - 18 mg/dL | [facility] | | | | | | [facility] | | | | | | MEDICAL | | | | | | CENTER - | | | | | | LABORATORY | | + + + + + + | Creatinine | 1.29 | 0.60 - 1.30 | [facility] | | | | | mg/dL | [facility] | | | | | | MEDICAL | | | | | | CENTER - | | | | | | LABORATORY | | + + + + + + | Estimated | 53 (L)Comment: For | >60 mL/min/A | [facility] | | | GFR | -Americans, | | [facility] | | | | please multiply the | | MEDICAL | | | | result by 1.210 | | CENTER - | | | | This is an estimated | | LABORATORY | | | | GFR and is based on a | | | | | | standard adult | | | | | | body mass (A=1.73m2) and | | | | | | serum creatinine | | | | + + + + + + | BUN/Creatin | 18.6 | 12 - 20 | [facility] | | | ine Ratio | | | [facility] | | | | | | MEDICAL | | | | | | CENTER - | | | | | | LABORATORY | | + + + + + + | Na | 138 | 136 - 149 mEq/L | [facility] | | | | | | [facility] | | | | | | MEDICAL | | | | | | CENTER - | | | | | | LABORATORY | | + + + + + + | K | 4.0 | 3.5 - 5.1 mEq/l | [facility] | | | | | | [facility] | | | | | | MEDICAL | | | | | | CENTER - | | | | | | LABORATORY | | + + + + + + | Cl | 106 | 98 - 109 mEq/l | [facility] | | | | | | [facility] | | | | | | MEDICAL | | | | | | CENTER - | | | | | | LABORATORY | | + + + + + + | CO2 | 27 | 24 - 31 mEq/L | [facility] | | | | | | [facility] | | | | | | MEDICAL | | | | | | CENTER - | | | | | | LABORATORY | | + + + + + + | Anion Gap | 9.0 | 6.0 - 17.0 | [facility] | | | | | [...] + | [facility] | [address] | [place], [place] | [phone] | | [facility] | | [address] | | | - LABORATORY | | | | + + + + + | [facility] | [address] | [place], [place] | | | [facility] | | [address], [facility] | | | - LABORATORY | | | | + + + + + documented in this encounter Visit Diagnoses Not on filedocumented in this encounter"
--- OUTSIDE RECORDS SUMMARY | ~2019-12-09 | XMS | Encounter Summary ---
Demographics + + + | Address | [address] | | | [place] [address] | + + + | Home Phone | | + + + | Preferred Language | Unknown | + + + | Marital Status | | + + + | Christianity Affiliation | 1041 | + + + | Race | Unknown | + + + | Ethnic Group | Unknown | + + + Author + + + | Author | [facility] | | | and [place] | + + + | Organization | [facility] | | | and [place] | + + + | Address | Unknown | + + + | Phone | Unavailable | + + + Support + + + + + | Name | Relationship | Address | Phone | + + + + + | Lesia Castaneda | ECON | [address] | | | | | [place] [address] | | + + + + + | Rosina Castaneda | ECON | Unknown | | + + + + + | Sandy Zamora | ECON | [address] | | | | [place] | | | | | [address] | | + + + + + Care Team Providers + +------+ + | Care Gallery Or Museum Technician Name | Role | Phone | + +------+ + | Jerome Ray | PCP | | | MD | | | + +------+ + Reason for Visit + + + | Reason | Comments | + + + | Follow-up | Cystoscopy for urethral stricture and urinary retention | + + + Encounter Details +--------+---------+ + + + | Date | Type | Department | Care Team | Description | +--------+---------+ + + + | 07/22/ | Office | [facility] | [place] | Stricture of | | 2020 | Visit | [address] | MD Nabil [address] | membranous urethra | | | | [place], [place] | [place], [place] | in male, unspecified | | | | [address] | [address] | stricture type | | | | [phone] | | (Primary Dx) | +--------+---------+ + + + Social History + + + +--------+ + | Tobacco Use | Types | Packs/Day | Years | Date | | | | | Used | | + + + +--------+ + | Former Smoker | Cigarettes | 1 | 16 | Quit: 05/26/1965 | + + + +--------+ + + +---+---+---+ | Smokeless Tobacco: | | | | | Never Used | | | | + +---+---+---+ + + +---------+ + | Alcohol Use | Drinks/Week | oz/Week | Comments | + + +---------+ + | Yes | 7 Glasses of wine | 7.0 | | | | 0 Standard drinks [...] + + + | Blood Pressure | 114/56 | 07/22/2019 3:38 PM | | | | | PST | | + + + + + | Pulse | 60 | 07/22/2019 3:38 PM | | | | | PST | | + + + + + | Temperature | - | - | | + + + + + | Respiratory Rate | 16 | 07/22/2019 3:38 PM | | | | | PST | | + + + + + | Oxygen Saturation | - | - | | + + + + + | Inhaled Oxygen | - | - | | | Concentration | | | | + + + + + | Weight | 78.8 kg (173 lb 11.6 | 07/22/2019 3:38 PM | | | | oz) | PST | | + + + + + | Height | 185.4 cm (6' 1") | 07/22/2019 3:38 PM | | | | | PST | | + + + + + | Body Mass Index | 22.92 | 07/22/2019 3:38 PM | | | | | PST | | + + + + + documented in this encounter Progress Percy Delacruz MD - 07/22/2019 3:45 PM PSTFormatting of this note might be differ ent from the original. Chief Complaint Patient presents with Follow-up Cystoscopy for urethral stricture and urinary retention HPI Demond Castaneda is a 88 y.o. male patient of Jerome Ray MD here today for a fol low up Cystoscopy for urethral stricture and urinary retention. Consent form signed & time out form completed Cystoscopy Preprocedure timeout was performed. The patient's genitals were then prepped and draped us ual fashion. 10 mL's of viscous lidocaine was instilled per urethra. The scope was then in troduced into the urethra. The anterior urethra was grossly normal. The posterior urethra w as noted for approximately 3 cm long membranous urethral stricture. The stricture began jus t proximal to the bulbar urethra and extended to the veru. There was a large amount of dens e scar tissue at this site. Upon entering the bladder gorman cystoscopy was performed. Bilate ral UOs were identified in the normal anatomic position effluxing clear urine.3+ trabeculati ons were noted. There are no mucosal abnormalities seen. The scope was then removed and th e patient tolerated the procedure well. Assessment Demond was seen today for follow-up. 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 If he is able to void he will follow-up in 4 weeks. If he is unable to void a new Daniels catheter will be placed. We discussed that the strictu re may come back and he may need recurrent frequent dilations. We also discussed that he ma y have worsening urinary incontinence as the stricture may have helped with continence. Past Medical History Past Medical History: Diagnosis Date Actinic keratosis Anemia Basal cell carcinoma of skin CAD (coronary artery disease) Carotid stenosis CVA (cerebral vascular accident) ([facility]) Eczema Femur fracture, left ([facility]) Fx eight/more rib-closed H/O: facial fractures Hearing loss wears hearing aids [place] (myocardial infarction) ([facility]) 2014 Osteoarthritis Pes planus Prostate cancer ([facility]) prostate Wears dentures full upper Past Surgical History Past Surgical History: Procedure Laterality Date BRACHYTHERAPY prostate cath placement 05/23/15 coronary artery stent 07/07/14 EGD AND COLONOSCOPY N/A 07/25/2015 Procedure: EGD / COLONOSCOPY; Surgeon: Demond More MD; Location: [facility] MEDICAL PROCEDUR E UNIT GALLBLADDER SURGERY HERNIA REPAIR HIP ARTHROPLASTY Right 11/16/2015 Procedure: Right Hemiarthroplasty Hip ; Surgeon: Rayo Mercado MD; Location: [facility] MAIN OR left femur fracture repair OTHER SURGICAL HISTORY Bilateral HIP PINNING REVISION TOTAL HIP ARTHROPLASTY Right 07/13/2019 Procedure: Revision right total hip arthroplasty; Surgeon: Maxi Zamora MD; Location: [facility] MAIN OR TOTAL KNEE ARTHROPLASTY Bilateral Family History: History reviewed. No pertinent family history. Social History: Social History Socioeconomic History Marital status: Spouse name: Not on file Number of children: Not on file Years of education: Not on file Highest education level: Not on file Tobacco Use Smoking status: Former Smoker Packs/day: 1.00 Years: 16.00 Pack years: 16.00 Types: Cigarettes Last attempt to quit: 05/26/1965 Years since quittin.1 Smokeless tobacco: Never Used Substance and Sexual Activity Alcohol use: Yes Alcohol/week: 7.0 standard drinks Types: 7 Glasses of wine per week Drug use: No Comment: Drug use: No Allergies Allergen Reactions Sulfa Antibiotics Nausea And Vomiting Medications: Current Outpatient Medications: acetaminophen (TYLENOL) 500 mg tablet, Take 500-1,000 mg by mouth every 6 hours as nee ded for Pain., Disp: , Rfl: aspirin 81 MG tablet, Take 1 tablet by mouth 2 times daily., Disp: 56 tablet, Rfl: 0 atorvaSTATin (LIPITOR) 20 mg tablet, Take 20 mg by mouth nightly., Disp: , Rfl: ROS Objective BP 114/56 | Pulse 60 | Resp 16 | Ht 1.854 m (6' 1") | Wt 78.8 kg (173 lb 11.6 oz) | BM I 22.92 kg/m General Appearance: Alert, cooperative, no distress, appears stated age Head: Normocephalic, without obvious abnormality, atraumatic Eyes: conjunctiva/corneas clear, EOM's intact Throat: Lips, mucosa, and tongue normal; no gross deformities, mmm Neck: Supple, symmetrical, no adenopathy Lungs: Regular, unlabored breathing MS No CVA tenderness, no spinal tenderness, no scoliosis present Normal external genitalia, no erythema, edema or rash Abdomen: Soft, non-tender, no masses Extremities: Extremities normal, atraumatic, no cyanosis, clubbing, or edema Pulses: Radial pulses 2+ and symmetric Skin: Warm and dry Lymph nodes: Cervical and supraclavicular nodes normal Neurologic: Gait normal, CN 2-12 grossly intact; Strength and sensation grossly normal in b ilateral upper and lower extremities Data: REVIEW OF SYSTEMS: [x] Marked All Negative Constitutional Symptoms: [] Fever [] Chills [] Headache [] Change in appetite [] Change in weight [] Change in energy [] Other: Neurological: [] Tremors [] Dizzy Spells [] Numbness/Tingling [] Seizures [] Other: Endocrine: [] Excessive thirst [] Too hot [] Too cold [] Tired/Sluggish Gastrointestinal: [] Abdominal pain [] Nausea/Vomiting [] Indigestion/heartburn [] Change in stoo l size [] Change in stool shape [] Change in stool color [] Pain with swallowing [] Other: Cardiovascular: [] Chest Pain [] Rapid heart rate [] High blood pressure [] Other: Integumentary: [] Skin rash [] Boils [] Persistent itch [] Other: Musculoskeletal: [] Neck Pain [] Joint swelling/pain [] Back pain [] Bone pain [] Other: Respiratory: [] Wheezing [] Frequent cough [] Shortness of breath [] Other: Hematologic/Lymphatic: [] Swollen glands [] Blood clotting issues [] Prior blood transfusions []Other: Psychologic: Are you generally satisfied with your life? yes Do you feel severely depressed? no Have you considered suicide? no Habits: Do you smoke? no Results for orders placed or performed during the hospital encounter of 07/13/19 Culture, Wound, Smear Result Value Ref Range Culture No growth to date Gram Stain Result 1+ White Blood Cells Gram Stain Result No organisms seen Culture, Anaerobic Result Value Ref Range Culture No anaerobes isolated. Extra Lavender Top Tube Result Value Ref Range Extra Lavender Top Tube Done Hemoglobin and Hematocrit Result Value Ref Range Hematocrit 24.7 (L) 40.0 - 51.0 % Hemoglobin 7.9 (L) 13.5 - 18.0 g/dL Extra Green Top Tube Result Value Ref Range Extra Green Top Tube Done Hemoglobin and Hematocrit Result Value Ref Range Hematocrit 17.9 (LL) 40.0 - 51.0 % Hemoglobin 5.9 (LL) 13.5 - 18.0 g/dL Extra Green Top Tube Result Value Ref Range Extra Green Top Tube Done Hematocrit Result Value Ref Range Hematocrit 26.0 (L) 40.0 - 51.0 % ECG 12 lead Result Value Ref Range VENTRICULAR RATE EKG 78 BPM ATRIAL RATE 78 BPM P-R INTERVAL 182 ms QRS DURATION 152 ms Q-T INTERVAL 410 ms Q-T INTERVAL (CORRECTED) 467 ms P WAVE AXIS 71 degrees T AXIS 84 degrees INTERPRETATION TEXT Normal sinus rhythm Right bundle branch block Possible Lateral infarct , age undetermined Abnormal ECG When compared with ECG of 16-NOV-2015 12:56, Right bundle branch block has replaced Nonspecific intraventricular block Nonspecific T wave abnormality leads I and aVL is now present Confirmed by BRITTANI ALMONTE MD ([id number]) on 07/15/2019 6:29:44 AM Type and Screen Result Value Ref Range ABO O Rh Type Positive Antibody Screen Negative Red Blood Cells (PRBC) - Crossmatch Result Value Ref Range Product Code R1429I02 UNIT # [id number] UNIT ABO O UNIT RH POS CROSSMATCH INTERP Compatible Unit Status Issued Blood Product ABORh OPOS Blood Product Expiration Date and Time Product Blood Type Barcode 5100 Product Code A4043I40 UNIT # [id number] UNIT ABO O UNIT RH POS CROSSMATCH INTERP Compatible Unit Status Issued Blood Product ABORh OPOS Blood Product Expiration Date and Time Product Blood Type Barcode 5100 Lab Results Component Value Date CREA 1.20 08/12/2018 Jerome Ray MD's notes were reviewed in clinic today. Return in about 4 weeks (around 08/19/2019).. This document was generated in part using voice recognition software. Frequent wrong word or sound-alike substitutions may have occurred due to the inherent limitations of the voice recognition software. Although I have attempted to edit the content, I have not thoroughly proofread this note, and activity therapist errors are very likely to occur. 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
--- OUTSIDE RECORDS SUMMARY | ~2019-12-09 | XMS | Encounter Summary ---
Demographics + + + | Address | [address] | | | [place] [address] | + + + | Home Phone | | + + + | Preferred Language | Unknown | + + + | Marital Status | | + + + | Yazidism Affiliation | 1041 | + + + | Race | Unknown | + + + | Ethnic Group | Unknown | + + + Author + + + | Author | [facility] | | | and [place] | + + + | Organization | [facility] | | | and [place] | + + + | Address | Unknown | + + + | Phone | Unavailable | + + + Support + + + + + | Name | Relationship | Address | Phone | + + + + + | Lesia Castaneda | ECON | [address] | | | | | [place] [address] | | + + + + + | Rosina Castaneda | ECON | Unknown | | + + + + + | Sandy Zamora | ECON | [address] | | | | | [address] | | | | | [address] | | + + + + + Care Team Providers + +------+ + | Care Filer And Sander Name | Role | Phone | + +------+ + PCP | Unavailable | + +------+ + Encounter Details +--------+ + + + + | Date | Type | Department | Care Team | Description | +--------+ + + + + | 05/16/ | Hospital | [facility] | | | | 2003 - | Encounter | MED [facility] GENER[facility] OP | | | | | | CONV DEPT [address] | | | | 08/14/ | | [employer] [place], | | | | 2004 | | [place] [address] | | | | | | [phone] | | | +--------+ + + + [...] | | | | | [address] [place], [place] | | | | | | [address] | | | | | | | | +--------+---------+ + + + documented as of this encounter Visit Diagnoses Not on filedocumented in this encounter"
--- OUTSIDE RECORDS SUMMARY | ~2019-12-09 | XMS | Clinical Summary ---
Demographics + + + | Address | [address] | | | [place] [address] | + + + | Home Phone | | + + + | Preferred Language | Unknown | + + + | Marital Status | | + + + | Adventist Affiliation | 1041 | + + + | Race | Unknown | + + + | Ethnic Group | Unknown | + + + Author + + + | Author | [facility] | | | and [place] | + + + | Organization | [facility] | | | and [place] | + + + | Address | Unknown | + + + | Phone | Unavailable | + + + Support + + + + + | Name | Relationship | Address | Phone | + + + + + | Lesia Castaneda | ECON | [address] | | | | | [place] [address] | | + + + + + | Rosina Castaneda | ECON | Unknown | | + + + + + | Sandy Zamora | ECON | [address] | | | | [place] | | | | | [address] | | + + + + + Care Team Providers + +------+ + | Care Molding Machine Operator Helper Name | Role | Phone | + +------+ + | Jerome Ray | PCP | | | MD | | | + +------+ + Allergies + + + + + + | Active Allergy | Reactions | Severity | Noted | Comments | | | | | Date | | + + + + + + | Sulfa Antibiotics | Nausea And Vomiting | Medium | 07/24/19 | | | | | | 16 | | + + + + + + Medications + + + +---------+------+------+-------+ | Medication | Sig | Dispensed | Refills | Star | End | Statu | | | | | | t | Date | s | | | | | | Date | | | + + + +---------+------+------+-------+ | atorvaSTATin | Take 20 mg by mouth | | 0 | 12/2 | | Activ | | (LIPITOR) 20 mg | nightly. | | | 2/20 | | e | | tablet | | | | 18 | | | + + + +---------+------+------+-------+ | acetaminophen | Take 500-1,000 mg by | | 0 | | | Activ | | (TYLENOL) 500 mg | mouth every 6 hours | | | | | e | | tablet | as needed for Pain. | | | | | | + + + +---------+------+------+-------+ | aspirin 81 MG | Take 1 tablet by | 56 | 0 | | | Activ | | tablet | mouth 2 times daily. | tablet | | | | e | + + + +---------+------+------+-------+ | clopidogrel | | | 0 | 04/0 | | Activ | | (PLAVIX) 75 mg | | | | 3/20 | | e | | tablet | | | | 20 | | | + + + +---------+------+------+-------+ Active Problems + + + | Problem | Noted Date | + + + | Mechanical loosening of internal right hip prosthetic joint | 07/13/2019 | + + + + + | Overview: 11/16/2015 Right Hemiarthroplasty Hip. October 2015 | | the patient fell over backwards while working with a horse | | fracturing his right hip... underwent right desean hip | | arthroplasty... 3 months after surgery he was back to horseback | | riding, but then his right knee became painful ... April 2016 | | Dr. Mercado performed right total knee arthroplasty on him. | + + + + + | Basal cell carcinoma of skin | 12/15/2018 | + + + | Hearing loss | 12/15/2018 | + + + | Stable angina | 07/22/2018 | + + + | Coronary arteriosclerosis | 07/22/2018 | + + + + + | Overview: Overview: | | Jul 03, 2015 | | Entered By: GIUSEPPE MCDONOUGH | | Comment: EKG today shows old lateral infarct. PTCA x 1 OM1 06/09 | + + + + + | Closed fracture of femur | 07/22/2018 | + + + | S/P coronary artery stent placement | 11/16/2015 | + + + + + | Overview: Overview: Overview: Last Assessment & Plan: May | | need to hold ASA and Plavix due to planned orthopedic procedure. | | Stent was placed 07/09 at [facility], [place] Last | | Assessment & Plan: May need to hold ASA and Plavix due to | | planned orthopedic procedure. 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 | + + + + + | Rheumatoid arthritis | 07/24/2015 | + + + + + | Last Assessment & Plan: Appears chronic s/p evaluation by GI | | and heme/onc. Will need type and crossmatch. 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 PTCA x 1 OM1 1/15 | + + + +---+ | CVA (cerebral vascular accident) | | + +---+ Resolved Problems + + + + | Problem | Noted | Resolved | | | Date | Date | + + + + | Pes planus | 12/16/19 | | | | 19 | 9 | + + + + | Actinic keratosis | 12/16/19 | | | | 19 | 9 | + + + + | Eczema | 12/16/19 | | | | 19 | 9 | + + + + | Fracture of neck of femur | 12/16/19 | | | | 19 | 9 | + + + + | Injury, other and unspecified, knee, leg, ankle, and foot | 12/16/19 | | | | 19 | 9 | + + + + | Osteoarthrosis | 12/16/19 | | | | 19 | 9 | + + + + | Chest pain | 12/16/19 | | | | 19 | 9 | + + + + | Gastrointestinal hemorrhage, unspecified gastrointestinal | 06/16/19 | | | hemorrhage type | 16 | 9 | + + + + | Unstable angina pectoris | 06/29/19 | | | | 15 | 9 | + + + + | Anemia | | | | | | 9 | + + + + Encounters +--------+ + + + + | Date | Type | Specialty | Care Team | Description | +--------+ + + + + | 10/07/ | Telephone | Oncology | Demond Castellon | Results | | 2019 | | | MD Refugio | | +--------+ + + + + | 09/15/ | Hospital | Oncology | Demond Castellon | CA prostate, adenoca | | 2019 | Encounter | | MD [facility] | ([facility]) (Primary Dx) | +--------+ + + + + | 09/15/ | Orders Only | Oncology | Demond Castellon | CA prostate, adenoca | | 2019 | | | MD [facility] | ([facility]) (Primary Dx) | +--------+ + + + + from Last 3 Months Immunizations + + + + | Name | Administration Dates | Next Due | + + + + | INFLUENZA 66 Y OR >, | 03/01/2016 | | | TRIVALENT HIGH-DOSE | | | + + + + | INFLUENZA PF 66 Y OR | 03/12/2019 | | | >,TRIVALENT (FLUAD) | | | + + + + | INFLUENZA PF | 06/01/2015, 04/26/2014 | | | TRIVALENT(PED/ADOL/A | | | | DULJosselin)SHADEKT | | | + + + + | INFLUENZA, | 02/12/2012 | | | UNSPECIFIED | | | | FORMULATION | | | + + + + | PNEUMOCOCCAL | 06/01/2015 | | | CONJUGATE 13-VALENT | | | | (PCV13) | | | + + + + | PNEUMOCOCCAL | 03/12/2019 | | | POLYSACCHARIDE | | | | 23-VALENT (PPSV23) | | | + + + + | ZOSTER, 1 DOSE | 04/26/2014 | | | (ZOSTAVAX) | | | + + + + Social History + + [...] on file | | + + + Last Filed Vital Signs + [...] + + + + | Temperature | 36.8 C (98.3 F) | 07/16/2019 7:37 AM | | | | | PST | | + + + + + | Respiratory Rate | 16 | 07/22/2019 3:38 PM | | | | | PST | | + + + + + | Oxygen Saturation | 93% | 07/16/2019 7:37 AM | | | | | PST | [...] + + + + Plan of Treatment +--------+---------+ + + + | Date | Type | Specialty | Care Team | Description | +--------+---------+ + + + | 02/01/ | Office | Cardiology | Jazlyn Almeida, | | | 2019 | Visit | | MD Vikram RICARDO | | | | | | [place], [place] | | | | | | [address] | | | | | | | | +--------+---------+ + + + + + + + + | Health Maintenance | Due Date | Last | Comments | | | | Done | | + + + + + | Vaccine: | | | | | Dtap/Tdap/Td (1 - | 1 | | | | Tdap) | | | | + + + + + | Vaccine: Zoster (2 | | 04/26/20 | | | of 3) | 5 | 14 | | + + + + + | Adult Annual | | | | | Wellness Visit | 5 | | | + + + + + | Vaccine: Influenza | | 03/12/20 | | | (#1) | 0 | 19, | | | | | 03/01/20 | | | | | 16, | | | | | 06/01/19 | | | | | 16, | | | | | Addition | | | | | al | | | | | history | | | | | exists | | + + + + + | Vaccine: | Completed | 03/12/20 | | | Pneumococcal 65+ | | 19, | | | | | 06/01/19 | | | | | 16 | | + + + + + Implants + +--------+--------+ +--------+--------+--------+ | Implanted | Type | Area | Manufacture | Device | Shelf | Model | | | | | r | | Expira | / | | | | | | Identi | tion | Serial | | | | | | fier | Date | / Lot | + +--------+--------+ +--------+--------+--------+ | Shell Acet Pps G7 56f Ltd - | Generi | Right: | MATT - | | 09/11/ | [id number] | | SnaImplanted: Qty: 1 on | c | Hip | ZIMM | | 2028 | 665 | | 07/13/2019 by Maxi Zamora, | | | | | | /NA | | MD at [facility] | | | | | | /[id number] | | [facility] | | | | | | 52 | + +--------+--------+ +--------+--------+--------+ | Imp Cntrlzr Dst In Ansr 14mm | Generi | Right: | MATT - | | 11/21/ | [id number] | | - SnaImplanted: Qty: 1 on | c | Hip | ZIMM | | 2025 | /NA | | 07/13/2019 by Maxi Zamora, | | | | | | /[id number] | | MD at [facility] | | | | | | 0 | | [facility] | | | | | | | + +--------+--------+ +--------+--------+--------+ | Imp Hip Lnr Arcmxl 36 F G7 | Generi | Right: | MATT - | | 02/06/ | [id number] | | Augusto - SnaImplanted: Qty: 1 on | c | Hip | ZIMM | | 2023 | 741 | | 07/13/2019 by Maxi Zamora | | | | | | /NA | | MD [place] at [facility] | | | | | | /[id number] | | [facility] | | | | | | 41 | + +--------+--------+ +--------+--------+--------+ | Imp Hip Fem Comp Echo Fx 15mm | Generi | Right: | MATT - | | 12/12/ | 12-151 | | - SnaImplanted: Qty: 1 on | c | Hip | ZIMM | | 2027 | 315 | | 07/13/2019 by Maxi Zamora, | | | | | | /NA | | at [facility] | | | | | | /[id number] | | [facility] | | | | | | 0 | + +--------+--------+ +--------+--------+--------+ | Imp Hip Fem Hd Cocr 36mm | Generi | Right: | MATT - | | 12/02/ | 11-363 | | Pos12 - SnaImplanted: Qty: 1 | c | Hip | ZIMM | | 8 | 666 | | on 07/13/2019 by Maxi Zamora | | | | | | /NA | | C, MD at [facility] | | | | | | /[id number] | | [facility] | | | | | | 0 | + +--------+--------+ +--------+--------+--------+ | Screw Bone Trilogy 6.5x40mm - | Screw | Right: | MATT - | | 10/23/ | 625 | | SnaImplanted: Qty: 1 on | | Hip | ZIMM | | 2028 | 0-065- | | 07/13/2019 by Maxi Zamora, | | | | | | 41 /NA | | MD at [facility] | | | | | | | | [facility] | | | | | | /[id number] | | | | | | | | 038 | + +--------+--------+ +--------+--------+--------+ | Screw Bone Trilogy 6.5x40mm - | Screw | Right: | MATT - | | 01/23/ | 00-625 | | SnaImplanted: Qty: 1 on | | Hip | ZIMM | | 2028 | 0-065- | | 07/13/2019 by Maxi Zamora, | | | | | | 41 /NA | | MD at [facility] | | | | | | | | [facility] | | | | | | /[id number] | | | | | | | | 520 | + +--------+--------+ +--------+--------+--------+ | Screw Bone Trilogy 6.5x30mm - | Screw | Right: | MATT - | | 04/01/ | 00-625 | | SnaImplanted: Qty: 1 on | | Hip | ZIM | | 2028 | 0-065- | | 07/13/2019 by Maxi Zamora, | | | | | | 30 /NA | | at [facility] | | | | | | | | [facility] | | | | | | /[id number] | | | | | | | | 652 | + +--------+--------+ +--------+--------+--------+ | Imp Hip Fem Stem Sumt Sz8 - | | Right: | JJHCS DEPUY | | 12/12/ | 1570-0 | | [id number]: Qty: 1 on | | Hip | ORTHO - | | 2018 | 5-150 | | 11/16/2015 by Rayo Mercado | | | ANI | | | / | | MD Mo at [facility] D[facility] | | | | | | /[id number] | | [facility] | | | | | | 1000 | + +--------+--------+ +--------+--------+--------+ | Imp Hip Fem Hd Mod Cthcrt | | Right: | JJHCS DEPUY | | 04/14/ | 1363-5 | | 54mm - [id number]: | | Hip | ORTHO - | | 2023 | 4-000 | | Qty: 1 on 11/16/2015 by | | | DEPU | | | / | | Rayo Mercado MD at | | | | | | /[id number] | | [facility] | | | | | | 8 | | [facility] | | | | | | | + +--------+--------+ +--------+--------+--------+ | Imp Hip Slv Mod Unipl | | Right: | JJ[facility]CS DEPUY | | 04/24/ | 1363-1 | | [id number] | | Hip | ORTHO - | | 2025 | 4-000 | | [id number]: Qty: 1 on | | | DEPU | | | / | | 11/16/2015 by Rayo Mercado | | | | | | /[id number] | | MD Mo at [facility] | | | | | | 6 | | [facility] | | | | | | | + +--------+--------+ +--------+--------+--------+ | Dav Bone Palacos-R Hv 40gm - | | Right: | KOFIUS - | | 07/23/ | [id number] | | SnaImplanted: Qty: 2 on | | Hip | AZALEA | | 2022 | 3 /NA | | 07/13/2019 by Maxi Zamora, | | | | | | /[id number] | | MD at [facility] [address] | | | | | | [address]58 | | [facility] | | | | | | | + +--------+--------+ +--------+--------+--------+ Results Not on filefrom Last 3 Months Insurance + +--------+ +--------+ +---------+--------+ | Payer | Benefi | Subscriber | Effect | Phone | Address | Type | | | t Plan | ID | malissa | | | | | | / | | Dates | | | | | | Group | | | | | | + +--------+ +--------+ +---------+--------+ | MEDICARE | MEDICA | [id number] | 11/23/18 | [phone] | | Medica | | | RE | | 97-Pre | 5 | | re | | | PART A | | sent | | | | | | AND B | | | | | | + +--------+ +--------+ +---------+--------+ | | TRICAR | [id number] | 04/13/ | [phone] | Indemn | | | E FOR | | 2006-P | 0 | | ity | | | LIFE | | resent | | | | + +--------+ +--------+ +---------+--------+ | MEDICARE | MEDICA | [id number] | 11/23/18 | [phone] | | Medica | | | RE | | 97-Pre | 5 | | re | | | PART A | | sent | | | | | | AND B | | | | | | + +--------+ +--------+ +---------+--------+ | | TRICAR | [id number] | | [phone] | | Indemn | | | E FOR | | 019-Pr | 0 | | ity | | | LIFE | | esent | | | | + +--------+ +--------+ +---------+--------+ + +--------+ +--------+ + + | Guarantor Name | Accoun | Relation to | Date | Phone | Billing Address | | | t Type | Patient | of | | | | | | | | | | + +--------+ +--------+ + + | Demond Castaneda | Person | Self [birth year] | [address] | | | al/Fam | | 1931 | [phone] | [place] [address] | | | dominique | | | 7 (Home) | | + +--------+ +--------+ + + | Demond Castaneda | Person | Self | [birth year] | [address] | | | al/Fam | | 1931 | [phone] | [place] [address] | | | dominique | | | 7 (Home) | | + +--------+ +--------+ + + Advance Directives + + + + + | Type | Date Recorded | Patient | Explanation | | | | Safety Security Officer | | + + + + + | Power of | | | | | Traffic Coordinator | | | | + + + + + | Advance | 11/17/2015 9:53 | | | | Directive | AM | | | + + + + + + + + + + | Code Status | Date | Date | Comments | | | Activated | Inactivated | | + + + + + | Full Code | 07/13/2019 | 07/16/2019 | | | | 6:29 PM | 3:33 PM | | + + + + + + + + +---+ | | | | | + + + +---+ | Full Code | 11/19/2015 | 11/22/2015 | | | | 9:40 PM | 6:34 PM | | + + + +---+ + + + +---+ | | | | | + + + +---+ | Full Code | 11/16/2015 | 11/19/2015 | | | | 9:49 PM | 9:37 PM | | + + + +---+
--- OUTSIDE RECORDS SUMMARY | ~2019-12-09 | XMS | Encounter Summary ---
Demographics + + + | Address | [address] | | | [place] [address] | + + + | Home Phone | | + + + | Preferred Language | Unknown | + + + | Marital Status | | + + + | Oriental Orthodox Affiliation | 1041 | + + + | Race | Unknown | + + + | Ethnic Group | Unknown | + + + Author + + + | Author | [facility] | | | and [place] | + + + | Organization | [facility] | | | and [place] | + + + | Address | Unknown | + + + | Phone | Unavailable | + + + Support + + + + + | Name | Relationship | Address | Phone | + + + + + | Lesia Castaneda | ECON | [address] | | | | | [place] [address] | | + + + + + | Rosina Castaneda | ECON | Unknown | | + + + + + | Sandy Zamora | ECON | [address] | | | | | [place] | | | | | [address] | | + + + + + Care Team Providers + +------+ + | Care Admissions Evaluator Name | Role | Phone | + +------+ + | Jerome Ray | PCP | | | MD | | | + +------+ + Encounter Details +--------+ + + + + | Date | Type | Department | Care Team | Description | +--------+ + + + + | 10/06/ | [facility] | [facility] | Demond Castellon | Malignant neoplasm | | 2013 | Encounter | [facility] | MD [address] | of prostate (HCC) | | | | [facility] [address] | [facility] | (Primary Dx); | | | | [facility] | [place] [address] | Personal history of | | | | [place] [address] | [phone] | malignant neoplasm | | | | [phone] | | of prostate | +--------+ + + + + Social [...] + + + | Blood Pressure | 123/65 | 10/06/2013 12:45 PM | | | | | PDT | | + + + + + | Pulse | 59 | 10/06/2013 12:45 PM | | | | | PDT | | + + + + + | Temperature | 35.5 C (95.9 F) | 10/06/2013 12:45 PM | | | | | PDT | | + + + + + | Respiratory Rate | - | - | | + + + + + | Oxygen Saturation | 97% | 10/06/2013 12:45 PM | | | | | PDT | | + + + + + | Inhaled Oxygen | - | - | | | Concentration | | | | + + + + + | Weight | 79.9 kg (176 lb 2.4 | 10/06/2013 12:45 PM | | | | oz) | PDT | | + + + + + | Height | 184 cm (6' 0.44") | 10/06/2013 12:45 PM | | | | | PDT | | + + + + + | Body Mass Index | 23.6 | 10/06/2013 12:45 PM | | | | | PDT | | + + + + + documented in this encounter Discharge Instructions Patient Instructions Demond Castellon MD - 10/06/2013 1:31 PM PDT1. we will conta ct you with the results of today's PSA level 2. in general we like to postpone initiating therapy until PSA rises into the low to mid-ag ents 3. I hope you have a good [facility] drive. We look forward to seeing you later this farrell mmer documented in this encounter Medications at Time of Discharge + + + +---------+--------+ + | Medication | Sig | Dispensed | Refills | Start | End Date | | | | | | Date | | + + + +---------+--------+ + | celecoxib | Take 200 mg by mouth | | 0 | | | | (CELEBREX) 200 mg | Daily. | | | | 5 | | capsule | | | | | | + + + +---------+--------+ + | cholecalciferol | Take 5,000 Units by | | 0 | | | | 5000 UNITS CAPS | mouth Daily. | | | | 4 | + + + +---------+--------+ + documented as of this encounter Progress Demond Pepe MD - 10/06/2013 1:27 PM PDTFormatting of this note might be diff erent from the original. Hem-Onc Progress Note [facility] Pt. Name/Age/: Demond Castaneda 82 y.o. 1930 Med. Record Number: [id number] Date of admission: 10/06/2013 Assessment and plan: 1. Biochemical relapase of prostate cancer Discussed slowly rising PSA and we'll continue quarterly monitoring. We discussed typical cutoff for decision-making with regard to initiation of androgen deprivation therapy. For m any patients this represents elevation into the low to medium double digits. 3 month followup. Subjective: The patient chart and medications were reviewed in detail and the patient was seen and exam ined. Demond Castaneda is a 82 y.o. male returns today for monitoring because of earlier biochemica l relapse of prostate cancer. He has had and especially impressive recovery from earlier hi p fracture that required pinning earlier this winter. In the time since our most recent vis it he does notice some secondary effect on his left knee which is harder to band. He also n otices more stiffness for example getting up from a seated position. 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 PSH: Reviewed, no changes to admission H&P. Review of Systems: Constitutional: Denies fatigue. Denies high fevers, shaking chills, anorexia, nausea, vomit ing, weight loss, or night sweats. Ear, Nose, Mouth, Throat: Denies odynophagia, dysphagia, or tinnitus. Cardiovascular: Denies shortness of breath, dyspnea on exertion, chest pain, palpitations o r orthopnea. Respiratory: Denies cough, hemoptysis, or sputum production. Gastrointestinal: Denies abdominal pain, constipation, diarrhea, melena, or bright red bloo d per rectum. Genitourinary: Denies hematuria or dysuria. Musculoskeletal: Denies joint pain or tenderness. Neurologic: Denies headache, visual changes, or numbness/tingling of the extremities. Endocrine: Denies peripheral edema or heat/cold intolerance. Hematologic: Denies spontaneous bruising or bleeding. Pain: Pt complains of right hip pain and right knee pain, the surgery on his right hip was Apr, Dr Fay at [facility] did the surgery. He reports walking a few miles a day and seems to help with it and if needed he will take tylenol He reports the pain at a 2/10 o n a pain scale. With tylenol the pain is still at a 2/10. Review of systems as above otherwise negative Scheduled Medications: Continuous Infusions: PRN Meds:. Allergy: No Known Allergies Objectives: Temp: 35.5 C (95.9 F) BP: 123/65 mmHg Pulse: 59 SpO2: 97 % on Min/Max Temp past 24 hours:Temp Av.5 C (95.9 F) Min: 35.5 C (95.9 F) Max: 3 5.5 C (95.9 F) No intake or output data in the 24 hours ending 10/06/13 1327 Wt. Admission: Weight: 79.9 kg (176 lb 2.4 oz) Wt. Current: Weight: 79.9 kg (176 lb 2.4 oz) Physical Exam: Exam: General: The patient is alert and oriented. No acute distress. He appears younger than s tated age Diagnostic studies: Available data and images were reviewed personally. See reports. Significant results and findings are addressed here or in the Assessment and Plan. No results found for this basename: WBC:4,HGB:4,HCT:4,PLT:4 in the last 168 hours No results found for this basename: NA:6,K:6,CL:6,CO2:6,BUN:6,CREA:6,GLU:6,M,CALCIUM:6,P HOS:6,BILITOT:6,AST:6,ALT:6,ALKPHOS:6,PROT:6,ALBUMIN:6 in the last 168 hours Microbiology Results (72 hrs) No Results found for the last 72 hours. No results found. Electronically signed by: Demond Castellon, 10/06/2013 13:27 [facility] TIME SPENT 15 MIN. > 50% AT BEDSIDE, WITH FAMILY/PATIENT IN CARE AND TUBE SORTER ON UNIT AND CO ORDINATION OF CARE Portions of this chart may have been created with Scope 5 voice recognition software. Occasi onal wrong-word or sound-alike substitutions may have occurred due to the inherent epperson itations of voice recognition software. Please read the chart carefully and recognize, using context, where these substitutions have occurred. Morteza Paez CMA - 10/06/2013 12:50 PM PDTREVIEW OF SYSTEMS Constitutional: Denies fatigue. Denies high fevers, shaking chills, anorexia, nausea, vomit ing, weight loss, or night sweats. Ear, Nose, Mouth, Throat: Denies odynophagia, dysphagia, or tinnitus. Cardiovascular: Denies shortness of breath, dyspnea on exertion, chest pain, palpitations o r orthopnea. Respiratory: Denies cough, hemoptysis, or sputum production. Gastrointestinal: Denies abdominal pain, constipation, diarrhea, melena, or bright red bloo d per rectum. Genitourinary: Denies hematuria or dysuria. Musculoskeletal: Denies joint pain or tenderness. Neurologic: Denies headache, visual changes, or numbness/tingling of the extremities. Endocrine: Denies peripheral edema or heat/cold intolerance. Hematologic: Denies spontaneous bruising or bleeding. Pain: Pt complains of right hip pain and right knee pain, the surgery on his right hip was Apr, Dr Fay at [facility] did the surgery. He reports walking a few miles a day and seems to help with it and if needed he will take tylenol He reports the pain at a 2/10 o n a pain scale. With tylenol the pain is still at a 2/10. Note: Pt is here for a follow up documented in this encounter Plan of Treatment +--------+---------+ + + + | Date | Type | Specialty | Care Team | Description | +--------+---------+ + + + | 02/01/ | Office | Cardiology | Jazlyn Almeida, | | | 2020 | Visit | | MD [address] | | | | | | [place] [facility] [place] | | | | | | [address] | | | | | | | | +--------+---------+ + + + documented as of this encounter Procedures + +--------+ + + + | Procedure Name | Priori | Date/Time | Associated Diagnosis | Comments | | | ty | | | | + +--------+ + + + | PSA, DIAGNOSTIC | STAT | 10/06/2013 | Malignant neoplasm | Results for this | | | | 12:35 PM | of prostate (HCC) | procedure are in the | | | | PDT | Personal history of | results section. | | | | | malignant neoplasm | | | | | | of prostate | | + +--------+ + + + documented in this encounter Results PSA, Diagnostic (10/06/2013 12:35 PM PDT) + +-------+ + + + | Component | Value | Ref Range | Performed | Pathologist | | | | | At | Signature | + +-------+ + + + | PSA | 2.92 | <=4.00 ng/mL | [facility] | | | | | [...] + | [facility] | [address] | [place], [place] | [phone] | | [facility] | | [address] | | | - LABORATORY | | | | + + + + + | [facility] | [address] | [place], [place] | | | [facility] | | [id number] [place] [address] | | | - LABORATORY | | | | + + + + + documented in this encounter Visit Diagnoses + + | Diagnosis | + + | Malignant neoplasm of prostate (HCC) - Primary Malignant neoplasm of prostate | + + | Personal history of malignant neoplasm of prostate | + + documented in this encounter
--- OUTSIDE RECORDS SUMMARY | ~2019-12-09 | XMS | Encounter Summary ---
Demographics + + + | Address | [address] | | | [place] [address] | + + + | Home Phone | | + + + | Preferred Language | Unknown | + + + | Marital Status | | + + + | Mosque Affiliation | 1041 | + + + | Race | Unknown | + + + | Ethnic Group | Unknown | + + + Author + + + | Author | [facility] | | | and [place] | + + + | Organization | [facility] | | | and [place] | + + + | Address | Unknown | + + + | Phone | Unavailable | + + + Support + + + + + | Name | Relationship | Address | Phone | + + + + + | Lesia Castaneda | ECON | [address] | | | | | [place] [address] | | + + + + + | Rosina Castaneda | ECON | Unknown | | + + + + + | Sandy Zamora | ECON | [address] | | | | | [place] | | | | | [address] | | + + + + + Care Team Providers + +------+ + | Care Printed Circuit Layout Taper Name | Role | Phone | + +------+ + | Jerome Ray | PCP | | | MD | | | + +------+ + Reason for Visit + +--------+ + | Reason | Onset | Comments | | | Date | | + +--------+ + | Lab Order | 01/13/ | Return for PSA | | | 2013 | | + +--------+ + Encounter Details +--------+ + + + + | Date | Type | Department | Care Team | Description | +--------+ + + + + | 01/13/ | Telephone | [facility] | Liya Altman | Lab Order (Return | | 2013 | | [facility] | | for PSA) | | | | [facility]OGY CLINIC [address] | | | | | | [address] | | | | | | [place] [address] | | | | | | [phone] | | | +--------+ + + + [...] + + documented as of this encounter Miscellaneous Notes Telephone Encounter - Mell Best RN - 01/20/2014 2:13 PM PDTPSA result called and left with Mrs. Castaneda. P DTTelephone Encounter - Mell Best RN - 01/20/2014 2:06 PM PDTCalled interpath and requested a copy of PSA. elephone Encounter - Roman Dias - 01/20/2014 8:25 AM PDTI phoned Mr. Castaneda to ask him to come back for a PSA. He states [facility]. He would like to have the results of that test called to him.Electronically luana d by Roman Dias at 01/20/2014 8:26 AM PDTTelephone Liya Trujillo - 12/25 10:49 AM PDTPlease call him to come back in. I have not gotten a response and I will be out the next 3 days. It is for his PSAElectronically signed by Liya Altman at 014 10:50 AM PDTTelephone Encounter Liya Moreno - 01/13/2014 12:23 PM PDTReturn for lab draw documented in this enc ounter Plan of Treatment +--------+---------+ + + + | Date | Type | Specialty | Care Team | Description | +--------+---------+ + + + | 02/01/ | Office | Cardiology | Jazlyn Almeida, | | | 2019 | Visit | | MD [address]ARDO | | | | | | [place], [place] | | | | | | [id number] | | | | | | | | +--------+---------+ + + + documented as of this encounter Visit Diagnoses Not on filedocumented in this encounter"
--- OUTSIDE RECORDS SUMMARY | ~2019-12-09 | XMS | Encounter Summary ---
Demographics + + + | Address | [address] | | | [place] [address] | + + + | Home Phone | | + + + | Preferred Language | Unknown | + + + | Marital Status | | + + + | Hinduism Affiliation | 1041 | + + + | Race | Unknown | + + + | Ethnic Group | Unknown | + + + Author + + + | Author | [facility] | | | and [place] | + + + | Organization | [facility] | | | and [place] | + + + | Address | Unknown | + + + | Phone | Unavailable | + + + Support + + + + + | Name | Relationship | Address | Phone | + + + + + | Lesia Castaneda | ECON | [address] | | | | | [place] [address] | | + + + + + | Rosina Castaneda | ECON | Unknown | | + + + + + | Sandy Zamora | ECON | [address] | | | | | [place] | | | | | [address] | | + + + + + Care Team Providers + +------+ + | Care Flight Crew Ordnanceman Name | Role | Phone | + +------+ + PCP | Unavailable | + +------+ + Encounter Details +--------+ + + + + | Date | Type | Department | Care Team | Description | +--------+ + + + + | 01/18/ | Hospital | [facility] | | | | 2004 - | Encounter | MED CTR GENER[facility] OP | | | | | | CONV DEPT [address] | | | | 04/18/ | | [place], | | | | 2004 | | [place] [address] | | | | | | [phone] | | | +--------+ + + + [...] | | | | | [place], [place] | | | | | | [address] | | | | | | | | +--------+---------+ + + + documented as of this encounter Visit Diagnoses Not on filedocumented in this encounter"
--- OUTSIDE RECORDS SUMMARY | ~2019-12-09 | XMS | Encounter Summary ---
Demographics + + + | Address | [address] | | | [place] [address] | + + + | Home Phone | | + + + | Preferred Language | Unknown | + + + | Marital Status | | + + + | Jewish Affiliation | 1041 | + + + | Race | Unknown | + + + | Ethnic Group | Unknown | + + + Author + + + | Author | [facility] | | | and [place] | + + + | Organization | [facility] | | | and [place] | + + + | Address | Unknown | + + + | Phone | Unavailable | + + + Support + + + + + | Name | Relationship | Address | Phone | + + + + + | Lesia Castaneda | ECON | [address] | | | | | [place] [address] | | + + + + + | Rosina Castaneda | ECON | Unknown | | + + + + + | Sandy Zamora | ECON | [address] | | | | | [place] | | | | | [address] | | + + + + + Care Team Providers + +------+ + | Care Tar Chaser Name | Role | Phone | + +------+ + PCP | Unavailable | + +------+ + Encounter Details +--------+ + + + + | Date | Type | Department | Care Team | Description | +--------+ + + + + | 01/19/ | Hospital | [facility] | | | | 2008 - | Encounter | [facility] | | | | | | CENTER [address] | | | | 01/23/ | | [place] | | | | 2008 | | [address] | | | | | | [phone] | | | +--------+ + + + [...] | | | | | [place], [place] | | | | | | [address] | | | | | | | | +--------+---------+ + + + documented as of this encounter Visit Diagnoses Not on filedocumented in this encounter"
--- OUTSIDE RECORDS SUMMARY | ~2019-12-09 | XMS | Encounter Summary ---
Demographics + + + | Address | [address] | | | [place] [address] | + + + | Home Phone | | + + + | Preferred Language | Unknown | + + + | Marital Status | | + + + | Orthodoxy Affiliation | 1041 | + + + | Race | Unknown | + + + | Ethnic Group | Unknown | + + + Author + + + | Author | [facility] | | | and [place] | + + + | Organization | [facility] | | | and [place] | + + + | Address | Unknown | + + + | Phone | Unavailable | + + + Support + + + + + | Name | Relationship | Address | Phone | + + + + + | Lesia Castaneda | ECON | [address] | | | | | [place] [address] | | + + + + + | Rosina Castaneda | ECON | Unknown | | + + + + + | Sandy Zamora | ECON | [address] | | | | | [place] | | | | | [address] | | + + + + + Care Team Providers + +------+ + | Care Director Of Field Sales Name | Role | Phone | + +------+ + | Sergio Thompson MD | PCP | | + +------+ + Encounter Details +--------+ + + + + | Date | Type | Department | Care Team | Description | +--------+ + + + + | 07/25/ | Hospital | [facility] | Demond Castellon | CA prostate, adenoca | | 2016 | Encounter | [facility] | MD [address] | (HCC) (Primary Dx); | | | | ONCOLOGY CLIN[facility] [address] | [facility] [place] | Iron deficiency | | | | [facility] | [place] [address] | anemia due to | | | | [place] [address] | [phone] | chronic blood loss | | | | [phone] | | | +--------+ + + + [...] | Yes | 0 Standard drinks | 2.0 | | | | or equivalent 2 | | | | | Glasses of [...] + + + | Blood Pressure | 115/56 | 07/26/2015 2:00 PM | | | | | PST | | + + + + + | Pulse | 57 | 07/26/2015 2:00 PM | | | | | PST | | + + + + + | Temperature | 35.9 C (96.6 F) | 07/26/2015 2:00 PM | | | | | PST | | + + + + + | Respiratory Rate | 20 | 07/26/2015 2:00 PM | | | | | PST | | + + + + + | Oxygen Saturation | 96% | 07/26/2015 2:00 PM | | | | | PST | | + + + + + | Inhaled Oxygen | - | - | | | Concentration | | | | + + + + + | Weight | 79.2 kg (174 lb 9.7 | 07/26/2015 2:00 PM | | | | oz) | PST | | + + + + + | Height | - | - | | + + + + + | Body Mass Index | 23.04 | 07/25/2015 9:09 AM | | | | | PST | | + + + + + documented in this encounter Medications at Time [...] this encounter Progress Demond Pepe MD - 07/26/2015 2:04 PM PSTFormatting of this note might be diff erent from the original. Hem-Onc Progress Note [facility] Pt. Name/Age/: Demond Castaneda 84 y.o. 1930 Med. Record Number: [id number] Date of admission: 07/26/2015 Assessment and plan: 1. 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 Stroke, November, 3. Angina Pectoris, Dec, 2013, S/p PCI, [facility], [place], [place] 4. GI bleeding with secondary worsening anemia Discussion today and counseling taking node of further decline in erythrocyte count today a t 2.69 million with accompanying hemoglobin of 8.8, hematocrit of 26%, representing all time low levels for our laboratory testing here. Patient also has mild leukopenia and borderlin e thrombocytopenia although he is free of signs or symptoms of either neutropenic infection or thrombocytopenic hemorrhage. We discussed opportunities for additional testing at the level of bone marrow as a means of both assessing available iron stores for hematopoiesis but also assessing for possible myel odysplastic component that might account for anemia. Preference would be to obtain this johnson ner as patient will be heading out for much of summer into the [facility] and thus be unavailable for most medical needs. Subjective: The patient chart and medications were reviewed in detail and the patient was seen and exam ined. Demond Castaneda is a 84 y.o. male returns today for additional follow-up evaluating both biochemical relapse of prostate cancer and more recently worsening normocytic anemia. Lab testing over the past several years disclosing presence of a earlier mild normocytic an emia thought to be on the basis of chronic disease. More recently however anemia worsening considerably and probably having an impact on overall cardiovascular symptomatology. Vision hospitalized earlier last year for episode of ischemic chest discomfort. He is also on melody g-term aspirin. There is also a history of moderate renal insufficiency. Patient has a bernardo y slowly progressive biochemical relapse of prostate cancer although this has not felt to be a factor in patient's overall illness. Just completed GI evaluation including both EGD disclosing mild gastritis and colonoscopy n egative for neoplasia reassuring the patient not having high level active bleeding. Gastric findings could be explained on the basis of chronic aspirin usage. Despite all of this patient maintaining most of his normal activities. He describes walkin g hills over the last day, up to 2 miles but does admit that he experiences an aching discom fort in upper arms that would be consistent with angina. 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 PSH: Reviewed, no changes to admission H&P. Review of Systems: Constitutional: Denies fatigue. Denies high fevers, shaking chills, anorexia, nausea, vomit ing, weight loss, or night sweats. Appetite without changes. Ear, Nose, Mouth, Throat: Denies odynophagia, dysphagia, or tinnitus. Cardiovascular: Denies shortness of breath. States dyspnea on exertion. No chest pain, palp itations or orthopnea. Respiratory: Denies cough, hemoptysis, or sputum production. Gastrointestinal: Denies abdominal pain, constipation, diarrhea, melena, or bright red bloo d per rectum. States his blood count was low and so they did a hemoccult and came out positi ve. They schedule him yesterday for a endoscopy and colonoscopy which he states came back ne [place]. Genitourinary: Denies hematuria or dysuria. Musculoskeletal: States he has joint pain and tenderness. 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 Neurologic: Denies headache, visual changes, or numbness/tingling of the extremities. Endocrine: Denies peripheral edema or heat/cold intolerance. Hematologic:Spontaneous bruising and bleeding. States he is on blood thinners. Integumentary: Denies rash, wounds or other skin concerns. Pain: Denies pain. Review of systems as above otherwise negative Scheduled Medications: Continuous Infusions: PRN Meds:. Allergy: Allergies Allergen Reactions Sulfa Antibiotics Nausea And Vomiting Objectives: Temp: 35.9 C (96.6 F) BP: 115/56 mmHg Pulse: 57 Resp: 20 SpO2: 96 % on Min/Max Temp past 24 hours:Temp Av.9 C (96.6 F) Min: 35.9 C (96.6 F) Max: 3 5.9 C (96.6 F) No intake or output data in the 24 hours ending 07/26/15 1404 Wt. Admission: Weight: 79.2 kg (174 lb 9.7 oz) Wt. Current: Weight: 79.2 kg (174 lb 9.7 oz) Physical Exam: Exam: General: Mild pallor but not ill. Psychiatric: Normal mood and affect. Diagnostic studies: Available data and images were reviewed personally. See reports. Significant results and findings are addressed here or in the Assessment and Plan. Recent Labs Lab 07/25/15 1126 WBC 3.5* HGB 8.8* HCT 26.1* PLT 148 Recent Labs Lab 07/26/15 1332 NA 142 K 3.7 CL 105 CO2 29 BUN 27* CREA 1.38* GLU 123* CALCIUM 9.4 BILITOT 3.4* AST 20 ALT 17 ALKPHOS 88 ALBUMIN 4.3 Microbiology Results (72 hrs) Procedure Component Value Units Date/Time Helicobactor pylori Biopsy [[id number]] (Normal) Collected: 07/25/15 1034 Order Status: Completed Lab Status: Final result Updated: 07/26/15 0644 Specimen Information: Tissue / Antrum Helicobacter pylori Ag Negative No results found. Electronically signed by: Demond Castellon, 07/26/2015 14:04 [facility] TIME SPENT 20 MIN. > 50% AT BEDSIDE, WITH FAMILY/PATIENT IN CARE AND DIAPER FOLDER ON UNIT AND CO ORDINATION OF CARE Portions of this chart may have been created with [employer] voice recognition software. Occasi onal wrong-word or sound-alike substitutions may have occurred due to the inherent epperson itations of voice recognition software. Please read the chart carefully and recognize, using context, where these substitutions have occurred. Danelle Granger RN - 07/26/2015 1:49 PM PSTREVIEW OF SYSTEMS Constitutional: Denies fatigue. Denies high fevers, shaking chills, anorexia, nausea, vomit ing, weight loss, or night sweats. Appetite without changes. Ear, Nose, Mouth, Throat: Denies odynophagia, dysphagia, or tinnitus. Cardiovascular: Denies shortness of breath. States dyspnea on exertion. No chest pain, palp itations or orthopnea. Respiratory: Denies cough, hemoptysis, or sputum production. Gastrointestinal: Denies abdominal pain, constipation, diarrhea, melena, or bright red bloo d per rectum. States his blood count was low and so they did a hemoccult and came out positi ve. They schedule him yesterday for a endoscopy and colonoscopy which he states came back ne [facility]. Genitourinary: Denies hematuria or dysuria. Musculoskeletal: States he has joint pain and tenderness. 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 Neurologic: Denies headache, visual changes, or numbness/tingling of the extremities. Endocrine: Denies peripheral edema or heat/cold intolerance. Hematologic:Spontaneous bruising and bleeding. States he is on blood thinners. Integumentary: Denies rash, wounds or other skin concerns. Pain: Denies pain. Note: 6 month follow up appointment with Dr. Castellon and labs. My chart:Active documen jake in this encounter Miscellaneous Notes Addendum Note - Dnaelle Rogers RN - 07/26/2015 3:35 PM PSTEncounter addended by: Danelle morton RN on: 07/26/2015 15:35
Documentation filed: Charges VN documented in this encounter Plan of Treatment +--------+---------+ + + + | Date | Type | Specialty | Care Team | Description | +--------+---------+ + + + | 02/01/ | Office | Cardiology | Jazlyn Almeida, | | | 2019 | Visit | | MD Vikram RICARDO | | | | | | [place] | | | | | | [address] | | | | | | | | +--------+---------+ + + + + + +--------+ + + | Name | Type | Priori | Associated Diagnoses | Order Schedule | | | | ty | | | + + +--------+ + + | Pathology Bone | Pathology | Routin | Iron deficiency | 1 Occurrences | | Marrow Biopsy | and | e | anemia due to | starting 07/26/2015 | | Request | Cytology | | chronic blood loss | until 07/26/2016 | + + +--------+ + + documented as of this encounter Procedures + +--------+ + + + | Procedure Name | Priori | Date/Time | Associated Diagnosis | Comments | | | ty | | | | + +--------+ + + + | PSA, DIAGNOSTIC | STAT | 07/26/2015 | CA prostate, | Results for this | | | | 1:32 PM | adenoca (HCC) | procedure are in the | | | | PST | | results section. | + +--------+ + + + | COMPREHENSIVE | STAT | 07/26/2015 | CA prostate, | Results for this | | METABOLIC PANEL | | 1:32 PM | adenoca (HCC) | procedure are in the | | | | PST | | results section. | + +--------+ + + + documented in this encounter Results PSA, Diagnostic (08/16/2015 10:26 AM PDT) + + + + + + | Component | Value | Ref Range | Performed | Pathologist | | | | | At | Signature | + + + + + + | PSA | 5.19 (H) | <=4.00 ng/mL | [facility] | | | | | | [facility] | | | | | | [facility] | | | | | | [place] - | | | | | | LABORATORY | | + + + + + + + + | Specimen | + + | Blood | + + + + + + + | Performing | Address | City/State/Zipcode | Phone Number | | Organization | | | | + + + + + | [facility] | [address] | [place] | [phone] | | [facility] | | [address] | | | - LABORATORY | | | | + + + + + Ferritin (08/16/2015 10:26 AM PDT) + +-------+ + + + | Component | Value | Ref Range | Performed | Pathologist | | | | | At | Signature | + +-------+ + + + | FERRITIN | 175 | 24 - 366 ng/mL | [facility] | | | | | | [facility] [...] + + | [facility] | [address] | [place] | [phone] | | [facility] | | [address] | | | - LABORATORY | | | | + + + + + Iron and Transferrin (08/16/2015 10:26 AM PDT) + + + + + + | Component | Value | Ref Range | Performed | Pathologist | | | | | At | Signature | + + + + + + | Iron | 100 | 50 - 160 ug/dL | [facility] | | | | | [facility] | | | | | | [facility] | | | | | | C[facility] - | | | | | | LABORATORY | | + + + + + + | TRANSFERRIN | 196.0 (L) | 240.0 - 480.0 | [facility] | | | | | mg/dL | [facility] | | | | | | [facility] | | | | | | CENTER - | | | | | | LABORATORY | | + + + + + + | TIBC | 274 | 235 - 425 ug/dL | [facility] | | | | | | [facility] | | | | | | [facility] | | | | | | CENTER - | | | | | | LABORATORY | | + + + + + + | % | 36.4 | 20.0 - 55.0 % | [facility] [...] + | [facility] | [address] | [place] | [phone] | | [facility] | | [address] | | | - LABORATORY | | | | + + + + + Comprehensive Metabolic Panel (07/26/2015 1:32 PM PST) + + + + + + | Component | Value | Ref Range | Performed | Pathologist | | | | | At | Signature | + + + + + + | Na | 142 | 136 - 149 | [facility] | | | | | mmol/L | [facility] | | | | | | MEDICAL | | | | | | CENTER - | | | | | | LABORATORY | | + + + + + + | K | 3.7 | 3.5 - 5.1 | [facility] | | | | | mmol/L | [facility] | | | | | | MEDICAL | | | | | | CENTER - | | | | | | LABORATORY | | + + + + + + | Cl | 105 | 98 - 109 mmol/L | [facility] | | | | | | [facility] | | | | | | [facility] | | | | | | CENTER - | | | | | | LABORATORY | | + + + + + + | CO2 | 29 | 24 - 31 mmol/L | [facility] | | | | | | [facility] | | | | | | [facility]ICAL | | | | | | CENTER - | | | | | | LABORATORY | | + + + + + + | Anion Gap | 8 | 3 - 16 mmol/L | [facility] | | | | | | [facility] | | | | | | [facility] | | | | | | CENTER - | | | | | | LABORATORY | | + + + + + + | Glucose | 123 (H) | 70 - 109 mg/dL | [...] + + + + | Creatinine | 1.38 (H) | 0.60 - 1.30 | [facility] | | | | | mg/dL | [facility] | | | | | | MEDICAL | | | | | | CENTER - | | | | | | LABORATORY | | + + + + + + | eGFR if not | 49 (L)Comment: | >=60 | [facility] | | | | GLOMERULAR FILTRATION | mL/min/1.73m2 | [facility] | | | [facility]URUAN | RATE,ESTIMATED | | MEDICAL | | | | mL/min/1.25x1Kqdr than | | CENTER - | | [...] | 9.4 | 8.3 - 10.5 | [facility] | | | | | mg/dL | [facility] | | | | | | MEDICAL | | | | | | CENTER - | | | | | | LABORATORY | | + + + + + + | Albumin | 4.3 | 3.2 - 5.0 g/dL | [facility] | | | | | | [facility] | | | | | | MEDICAL | | | | | | CENTER - | | | | | | LABORATORY | | + + + + + + | Bilirubin | 3.4 (H)Comment: This is | 0.1 - 1.5 mg/dL | [facility] | | | Total | an appended report. | | [facility] | | | | These results have been | | MEDICAL | | | | appended to a previously | | CENTER - | | | | preliminary verified | | LABORATORY | | | | report. | | | | + + + + + + | Total | 6.5 | 6.0 - 7.8 g/dL | [facility] | | | Protein | | | [facility] | | | | | | MEDICAL | | | | | | CENTER - | | | | | | LABORATORY | | + + + + + + | AST | 20Comment: This is an | 10 - 42 U/L | [facility] | | | | appended report. These | | [facility] | | | | results have been | | MEDICAL | | | | appended to a previously | | CENTER - | | | | preliminary verified | | LABORATORY | | | | report. | | | | + + + + + + | ALT | 17Comment: This is an | 6 - 45 U/L | [facility] | | | | appended report. These | | [facility] | | | | results have been | | MEDICAL | | | | appended to a previously | | CENTER - | | | | preliminary verified | | LABORATORY | | | | report. | | | | + + + + + + | Alkaline | 88Comment: This is an | 40 - 110 U/L | [facility] | | | Phosphatase | appended report. These | | [facility] | | | | results have been | | MEDICAL | | | | appended to a previously | | CENTER - | | | | preliminary verified | | LABORATORY | | | | report. | | | | + + + + + + | Globulin | 2.2 | g/dL | [facility] | | | | | | [facility] | | | | | | MEDICAL | | | | | | CENTER - | | | | | | LABORATORY | | + + + + + + | Albumin/Angeles | 2.0 | | [facility] | | | bulin Ratio | | | [facility] | | | | | | MEDICAL | | | | | | CENTER - | | | | | | LABORATORY | | + + + + + + | BUN/Creatin | 19.6 | | [facility] | | | ine [...] + + | [facility] | [address] | [place] | [phone] | | [facility] | | [address] | | | - LABORATORY | | | | + + + + + PSA, Diagnostic (07/26/2015 1:32 PM PST) + + + + + + | Component | Value | Ref Range | Performed | Pathologist | | | | | At | Signature | + + + + + + | PSA | 4.82 (H) | <=4.00 ng/mL | [facility] | | [...] + + | [facility] | [address] | [place] | [phone] | | [facility] | | [address] | | | - LABORATORY | | | | + + + + + documented in this encounter Visit Diagnoses + + | Diagnosis | + + | CA prostate, adenoca (HCC) - Primary Malignant neoplasm of prostate | + + | Iron deficiency anemia due to chronic blood loss Iron deficiency anemia secondary to | | blood loss (chronic) | + + documented in this encounter"
--- OUTSIDE RECORDS SUMMARY | ~2019-12-09 | XMS | Encounter Summary ---
Demographics + + + | Address | [address] | | | [place] [address] | + + + | Home Phone | | + + + | Preferred Language | Unknown | + + + | Marital Status | | + + + | Jainism Affiliation | [id number] | + + + | Race | Unknown | + + + | Ethnic Group | Unknown | + + + Author + + + | Author | [facility] | | | and [place] | + + + | Organization | [facility] | | | and [place] | + + + | Address | Unknown | + + + | Phone | Unavailable | + + + Support + + + + + | Name | Relationship | Address | Phone | + + + + + | Lesia Castaneda | ECON | [address] | | | | | [place] [address] | | + + + + + | Rosina Castaneda | ECON | Unknown | | + + + + + | Sandy Zamora | ECON | [address] | | | | | [place] | | | | | [address] | | + + + + + Care Team Providers + +------+ + | Care Finish Cleaner Name | Role | Phone | + +------+ + | Jerome Ray | PCP | | | MD | | | + +------+ + Encounter Details +--------+ + + + + | Date | Type | Department | Care Team | Description | +--------+ + + + + | 08/29/ | Hospital | [facility] | Demond Castellon | CA prostate, adenoca | | 2015 | Encounter | [facility] | MD [address] | (HCC) (Primary Dx); | | | | [facility] [address] | Malignant neoplasm | | | | [facility] | [place] [address] | of prostate (HCC) | | | | [place] [address] | [phone] | | | | | [phone] | | | +--------+ + + + [...] + + + | Blood Pressure | 126/66 | 08/29/2014 1:29 PM | | | | | PDT | | + + + + + | Pulse | 60 | 08/29/2014 1:29 PM | | | | | PDT | | + + + + + | Temperature | 36.1 C (97 F) | 08/29/2014 1:29 PM | | | | | PDT | | + + + + + | Respiratory Rate | 16 | 08/29/2014 1:31 PM | | | | | PDT | | + + + + + | Oxygen Saturation | 100% | 08/29/2014 1:29 PM | | | | | PDT | | + + + + + | Inhaled Oxygen | - | - | | | Concentration | | | | + + + + + | Weight | 80.3 kg (177 lb 0.5 | 08/29/2014 1:29 PM | | | | oz) | PDT | | + + + + + | Height | - | - | | + + + + + | Body Mass Index | 23.72 | 10/06/2013 12:45 PM | | | [...] + + + +---------+ + + | Clopidogrel | Take 75 mg by mouth | | 0 | | | | Bisulfate (PLAVIX | Daily. | | | | 6 | | PO) | | | | | | + + + +---------+ + + | cyanocobalamin | Take 1,000 mcg by | | 0 | | | | (VITAMIN B-12) 1000 | mouth Daily. Take | | | | 6 | | MCG tablet | 500mcg po daily | | | | | + + + +---------+ + + | metoprolol | Take 25 mg by mouth | | 0 | | | | tartrate (LOPRESSOR) | 2 times daily. Take | | | | 5 | | 25 mg tablet | 0.5 tabs bid | | | | | + + + +---------+ + + documented as of this encounter Progress Estelita Sanabria, [employer] SITE MANAGER - 08/29/2014 1:32 PM PDTREVIEW OF SYSTEMS Constitutional: Denies fatigue. [...] rectum. Genitourinary: Denies hematuria or dysuria. Musculoskeletal: Pt reports lower back pain and bilateral knee pain. Neurologic: Denies headache, visual changes, or numbness/tingling of the extremities. Endocrine: Denies peripheral edema or heat/cold intolerance. Hematologic: Denies spontaneous bruising or bleeding. Pt reports bruising easily. Integumentary: Denies rash, wounds or other skin concerns. Pain: Pt is having lower back pain and bilateral knee pain with pain medication (tylonal) p t rates the pain at a 3 without pain medication he rates the pain at a 5 this is on a pain s lizette from 0-10. Note: Pt is here for follow up and labs, pt reports having a stent put in his heat 06/2014, and states he has been doing well and has been improving. My chart: documented in this encounter H&P Notes Demond Castellon MD - 08/29/2014 1:58 PM PDTFormatting of this note might be diff erent from the original. Hem-Onc Progress Note [facility] Pt. Name/Age/: Demond Castaneda 83 y.o. 1930 Med. Record Number: [id number] Date of admission: 08/29/2014 Assessment and plan: 1. 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 Stroke, November, 3. Angina Pectoris, Dec, 2013, S/p PCI, [facility], [place] Review of laboratory testing today noting today's PSA of 4.1 little changed over the past 6 months. [facility]. 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 Subjective: The patient chart and medications were reviewed in detail and the patient was seen and exam inekofi. Demond aCstaneda is a 83 y.o. male returns today for follow-up monitoring of biochemical rela pse of prostate cancer. He is subjectively much improved in the time since her most recent visit at the time of an episode of ischemic chest pains. At that visit patient was seen both at the [facility], then at [facility] where cardiac catheterization disclosed a single-vess el coronary disease and then seen at [facility] but experienced a perforation of the coronary artery during placement of a stent and ultimately leading to replacement of the stent at [facility] in [place]. Since the time of that last procedure patient jeff milligan had an excellent response, and is feeling very well and describes that he feels like he i s 5 years younger. 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 PSH: Reviewed, no changes to admission H&P. [...] rectum. Genitourinary: Denies hematuria or dysuria. Musculoskeletal: Pt reports lower back pain and bilateral knee pain. Neurologic: Denies headache, visual changes, or numbness/tingling of the extremities. Endocrine: Denies peripheral edema or heat/cold intolerance. Hematologic: Denies spontaneous bruising or bleeding. Pt reports bruising easily. Integumentary: Denies rash, wounds or other skin concerns. Pain: Pt is having lower back pain and bilateral knee pain with pain medication (tylonal) p t rates the pain at a 3 without pain medication he rates the pain at a 5 this is on a pain s lizette from 0-10. Review of systems as above otherwise negative Scheduled Medications: Continuous Infusions: PRN Meds:. Allergy: No Known Allergies Objectives: Temp: 36.1 C (97 F) BP: 126/66 mmHg Pulse: 60 Resp: 16 SpO2: 100 % on Min/Max Temp past 24 hours:Temp Av.1 C (97 F) Min: 36.1 C (97 F) Max: 36.1 C (97 F) No intake or output data in the 24 hours ending 08/29/14 1359 Wt. Admission: Weight: 80.3 kg (177 lb 0.5 oz) Wt. Current: Weight: 80.3 kg (177 lb 0.5 oz) Physical Exam: Exam: General: The patient is alert and oriented. No acute distress. HEENT: PERRL, Oral mucosa intact. Neck is supple. Cardiovascular: Regular rate and rhythm, no murmur. Respiratory: Clear to auscultation and percussion. Breast: Not enlarged Abdomen: Soft, nontender, no hepatospenomegaly. No palpable masses. Bowel sounds present. Genitourinary: Deferred. Extremities: Nontender, no erythema, no edema. Skin: No rashes, bruising, or petechiae. Lymph: No palpable nodes in the neck, supraclavicular fossa, axilla or groin. Neurological: Cranial nerves are intact. Normal sensory and motor function, No focal defi cits noted. Muscular/Skeletal: No acute bony tenderness. Psychiatric: Normal mood and affect. Diagnostic studies: Available data and images were reviewed personally. See reports. Significant results and findings are addressed here or in the Assessment and Plan. Recent Labs Lab 08/29/14 1115 WBC 4.4 HGB 10.4* HCT 30.7* PLT 181 Recent Labs Lab 08/29/14 1115 NA 139 K 4.0 CL 108 CO2 28 BUN 25* CREA 1.20 GLU 103 CALCIUM 9.4 BILITOT 2.8* AST 20 ALT 22 ALKPHOS 80 ALBUMIN 4.6 Microbiology Results (72 hrs) No results found for the last 72 hours. No results found. Electronically signed by: Demond Castellon, 08/29/2014 13:59 [facility] TIME SPENT 20 MIN. 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 Occasi onal wrong-word or sound-alike substitutions may have occurred due to the inherent epperson itations of voice recognition software. Please read the chart carefully and recognize, using context, where these substitutions have occurred. documented i n this encounter Plan of Treatment +--------+---------+ + + + | Date | Type | Specialty | Care Team | Description | +--------+---------+ + + + | 02/01/ | Office | Cardiology | Jazlyn Almeida, | | | 2019 | Visit | | MD Vikram RICARDO | | | | | | [facility] [place] | | | | | | [address] | | | | | | | | +--------+---------+ + + + + +------+--------+ + + | Name | Type | Priori | Associated Diagnoses | Order Schedule | | | | ty | | | + +------+--------+ + + | CBC with | Lab | STAT | CA prostate, | With Oncology Appt | | Differential | | | adenoca (HCC) | for 10 Occurrences | | | | | | starting 08/29/2014 | | | | | | until 08/30/2015, 3 | | | | | | completed | + +------+--------+ + + | Comprehensive | Lab | STAT | CA prostate, | With Oncology Appt | | Metabolic Panel | | | adenoca (HCC) | for 10 Occurrences | | | | | | starting 08/29/2014 | | | | | | until 08/30/2015, 5 | | | | | | completed | + +------+--------+ + + documented as of this encounter Procedures + +--------+ + + + | Procedure Name | Priori | Date/Time | Associated Diagnosis | Comments | | | ty | | | | + +--------+ + + + | CBC WITH | STAT | 08/29/2014 | CA prostate, | Results for this | | DIFFERENTIAL | | 11:15 AM | adenoca (HCC) | procedure are in the | | | | PDT | | results section. | + +--------+ + + + | PSA, DIAGNOSTIC | Routin | 08/29/2014 | Malignant neoplasm | Results for this | | | e | 11:15 AM | of prostate (HCC) | procedure are in the | | | | PDT | | results section. | + +--------+ + + + | COMPREHENSIVE | STAT | 08/29/2014 | CA prostate, | Results for this | | METABOLIC PANEL | | 11:15 AM | adenoca (HCC) | procedure are in the | | | | PDT | | results section. | + +--------+ + + + documented in this encounter Results Comprehensive Metabolic Panel (08/30/2015 3:31 PM PDT) + + + + + [...] + + + + | Cl | 104 | 98 - 109 mmol/L | [facility] | | | | [facility] | | | | | | [facility] | | | | | [facility] - | | | | | | LABORATORY | | + + + + + + | CO2 | 28 | 24 - 31 mmol/L | [facility] [...] + + + + | Glucose | 150 (H) | 70 - 109 mg/dL | [facility] | | | | | | [facility] | | | | | | [facility] | | | | | | C[facility] - | | | | | | LABORATORY | | + + + + + + | BUN | 25 (H) | 7 - 18 mg/dL | [facility] | | | | | | [facility] | | | | | | MEDICAL | | | | | | CENTER - | | | | | | LABORATORY | | + + + + + + | Creatinine | 1.08 | 0.60 - 1.30 | [facility] | | | | | mg/dL | [facility] | | | | | | MEDICAL | | | | | | CENTER - | | | | | | LABORATORY | | + + + + + + | eGFR if not | >60Comment: GLOMERULAR | >=60 | [facility] | | | | FILTRATION | mL/min/1.73m2 | [facility] | | | [facility] [place] | RATE,ESTIMATED | | MEDICAL | | | | mL/min/1.02i2Bhaf than | | CENTER - | | [...] 4.3 | 3.2 - 5.0 g/dL | [facility] | | | | | | [facility] | | | | | | [facility] | | | | | | CENTER - | | | | | | LABORATORY | | + + + + + + | Bilirubin | 3.0 (H) | 0.1 - 1.5 mg/dL | [facility] | | | Total | | | [facility] | | | | | | [facility] | | | | | | CENTER - | | | | | | LABORATORY | | + + + + + + | Total | 6.8 | 6.0 - 7.8 g/dL | [facility] | | | Protein | | | [facility] | | | | | | MEDICAL | | | | | | CENTER - | | | | | | LABORATORY | | + + + + + + | AST | 17 | 10 - 42 U/L | [facility] | | | | | | [facility] | | | | | | [facility] | | | | | | CENTER - | | | | | | LABORATORY | | + + + + + + | ALT | 16 | 6 - 45 U/L | [facility] | | | | | | [facility] | | | | | | [facility] | | | | | | CENTER - | | | | | | LABORATORY | | + + + + + + | Alkaline | 89 | 40 - 110 U/L | [facility] | | | Phosphatase | | | [facility] | | | | | | MEDICAL | | | | | | CENTER - | | | | | | LABORATORY | | + + + + + + | Globulin | 2.5 | g/dL | [facility] | | | | | | [facility] | | | | | | MEDICAL | | | | | | CENTER - | | | | | | LABORATORY | | + + + + + + | Albumin/Angeles | 1.7 | | [facility] | | | bulin Ratio | | | [facility] | | | | | | MEDICAL | | | | | | CENTER - | | | | | | LABORATORY | | + + + + + + | BUN/Creatin | 23.1 | | [facility] | | | ine [...] [address] | [place] | [phone] | | [facility] | | [address] | | | - LABORATORY | | | | + + + + + Comprehensive Metabolic Panel (08/16/2015 10:19 AM PDT) + + + + + [...] + + + + | K | 3.8 | 3.5 - 5.1 | [facility] | | | | | mmol/L | [facility] | | | | | | MEDICAL | | | | | | CENTER - | | | | | | LABORATORY | | + + + + + + | Cl | 108 | 98 - 109 mmol/L | [facility] [...] + + + + | Glucose | 118 (H) | 70 - 109 mg/dL | [...] + + + + | Creatinine | 1.26 | 0.60 - 1.30 | [facility] | | | | | mg/dL | [facility] | | | | | | MEDICAL | | | | | | CENTER - | | | | | | LABORATORY | | + + + + + + | eGFR if not | 55 (L)Comment: | >=60 | [facility] | | | | GLOMERULAR FILTRATION | mL/min/1.73m2 | [facility] | | | [facility] | RATE,ESTIMATED | | MEDICAL | | | | mL/min/1.56g5Vlix than | | CENTER - | | [...] + + + + | Calcium | 9.3 | 8.3 - 10.5 | [facility] | | | | | mg/dL | [facility] | | | | | | MEDICAL | | | | | | CENTER - | | | | | | LABORATORY | | + + + + + + | Albumin | 4.4 | 3.2 - 5.0 g/dL | [facility] | | | | | | [facility] | | | | | | MEDICAL | | | | | | CENTER - | | | | | | LABORATORY | | + + + + + + | Bilirubin | 3.7 (H) | 0.1 - 1.5 mg/dL | [facility] | | | Total | | | [facility] | | | | | | MEDICAL | | | | | | CENTER - | | | | | | LABORATORY | | + + + + + + | Total | 6.8 | 6.0 - 7.8 g/dL | [facility] | | | Protein | | | [facility] | | | | | | MEDICAL | | | | | | CENTER - | | | | | | LABORATORY | | + + + + + + | AST | 17 | 10 - 42 U/L | [facility] | | | | | | [facility] | | | | | | [facility] | | | | | | CENTER - | | | | | | LABORATORY | | + + + + + + | ALT | 15 | 6 - 45 U/L | [facility] | | | | | | [facility] | | | | | | MEDICAL | | | | | | CENTER - | | | | | | LABORATORY | | + + + + + + | Alkaline | 80 | 40 - 110 U/L | [facility] | | | Phosphatase | | | [facility] | | | | | | MEDICAL | | | | | | CENTER - | | | | | | LABORATORY | | + + + + + + | Globulin | 2.4 | g/dL | [facility] | | | | | | [facility] | | | | | | MEDICAL | | | | | | CENTER - | | | | | | LABORATORY | | + + + + + + | Albumin/Angeles | 1.8 | | [facility] | | | bulin Ratio | | | [facility] | | | | | | MEDICAL | | | | | | CENTER - | | | | | | LABORATORY | | + + + + + + | BUN/Creatin | 19.0 | | [facility] | | | ine [...] + | [facility] | [address] | [place] | [phone] | | [facility] | | [address] | | | - LABORATORY | | | | + + + + + CBC with Differential (08/16/2015 10:19 AM PDT) + + + + + + | Component | Value | Ref Range | Performed | Pathologist | | | | | At | Signature | + + + + + + | White Blood | 4.6 | 4.0 - 11.0 K/uL | [facility] | | | Cells | | | [facility] | | | | | | MEDICAL | | | | | | CENTER - | | | | | | LABORATORY | | + + + + + + | Red Blood | 3.03 (L) | 4.30 - 5.70 | [facility] | | | Cells | | M/uL | [facility] | | | | | | MEDICAL | | | | | | CENTER - | | | | | | LABORATORY | | + + + + + + | Hemoglobin | 10.0 (L) | 13.5 - 18.0 | [facility] | | | | | g/dL | [facility] | | | | | | MEDICAL | | | | | | CENTER - | | | | | | LABORATORY | | + + + + + + | Hematocrit | 29.4 (L) | 40.0 - 51.0 % | [facility] | | | | | | [facility] | | | | | | MEDICAL | | | | | | CENTER - | | | | | | LABORATORY | | + + + + + + | MCV | 97.0 | 83.0 - 101.0 fL | [facility] | | | | | | [facility] | | | | | | [facility]ICAL | | | | | | CENTER - | | | | | | LABORATORY | | + + + + + + | MCH | 33.1 | 28.0 - 35.0 pg | [facility] [...] + + + + | RDW-CV | 18.5 (H) | <15.0 % | [facility] | | | | | | [facility] | | | | | | MEDICAL | | | | | | CENTER - | | | | | | LABORATORY | | + + + + + + | Platelet | 167 | 140 - 440 K/uL | [facility] [...] + + + + | % | 73.4 | 45.0 - 82.0 % | [facility] | | | Neutrophils | | | [facility] | | | | | | MEDICAL | | | | | | CENTER - | | | | | | LABORATORY | | + + + + + + | % | 16.8 (L) | 20.0 - 45.0 % | [facility] | | | Lymphocytes | | | [facility] | | | | | | MEDICAL | | | | | | CENTER - | | | | | | LABORATORY | | + + + + + + | % Monocytes | 7.8 | 4.0 - 12.0 % | [facility] | | | | | | [facility] | | | | | | MEDICAL | | | | | | CENTER - | | | | | | LABORATORY | | + + + + + + | % | 1.4 | 0.0 - 5.0 % | [facility] [...] + + + + | Absolute | 3.30 | 1.80 - 8.50 | [facility] | | | Neutrophils | | K/uL | [facility] | | | | | | MEDICAL | | | | | | CENTER - | | | | | | LABORATORY | | + + + + + + | Absolute | 0.80 | 0.60 - 3.20 | [facility] | | | Lymphocytes | | K/uL | [facility] | | | | | | MEDICAL | | | | | | CENTER - | | | | | | LABORATORY | | + + + + + + | Absolute | 0.40 | 0.00 - 1.00 | [facility] | | | Monocytes | | K/uL | [facility] | | | | | | MEDICAL | | | | | | CENTER - | | | | | | LABORATORY | | + + + + + + | Absolute | 0.10 | 0.00 - 0.40 | [facility] | | | Eosinophils | | K/uL | [facility] | | | | | | MEDICAL | | | | | | CENTER - | | | | | | LABORATORY | | + + + + + + | Absolute | 0.00 | 0.00 - 0.10 | [facility] | | | Basophils | | K/uL | [facility] | | | | [...] + | [facility] | [address] | [place] | [phone] | | [facility] | | [address] | | | - LABORATORY | | [...] | | | | mmol/L | [facility] | | | | [...] not | 49 (L)Comment: | >=60 | [facility] | | | | GLOMERULAR FILTRATION | mL/min/1.73m2 | [facility] | | | [facility] | RATE,ESTIMATED | | MEDICAL | | | | mL/min/1.43p3Hpcf than | | CENTER - | | [...] 4.3 | 3.2 - 5.0 g/dL | [facility] | | | | | | [facility] | | | | | | MEDICAL | | | | | | CENTER - | | | | | | LABORATORY | | + + + + + + | Bilirubin | 3.4 (H)Comment: This is | 0.1 - 1.5 mg/dL | [facility] | | | Total | an appended [...] | bulin Ratio | | | [facility] | [...] + | [facility] | [address] | [place] | [phone] | | [facility] | | [address] | | | - LABORATORY | | | | + + + + + Comprehensive Metabolic Panel (03/29/2015 8:32 AM PST) + + + + + + | Component | Value | Ref Range | Performed | Pathologist | | | | | At | Signature | + + + + + + | Na | 141 | 136 - 149 | [facility] | [...] + + + + | Cl | 104 | 98 - 109 mmol/L | [facility] | | | | | | [facility] | | | | | | MEDICAL | | | | | | CENTER - | | | | | | LABORATORY | | + + + + + + | CO2 | 28 | 24 - 31 mmol/L | [facility] | | | | | | [facility] | | | | | | MEDICAL | | | | | | CENTER - | | | | | | LABORATORY | | + + + + + + | Anion Gap | 9 | 3 - 16 mmol/L | [facility] | | | | | | [facility] | | | | | | MEDICAL | | | | | | CENTER - | | | | | | LABORATORY | | + + + + + + | Glucose | 109 | 70 - 109 mg/dL | [facility] | | | | | | [facility] | | | | | | MEDICAL | | | | | | CENTER - | | | | | | LABORATORY | | + + + + + + | BUN | 25 (H) | 7 - 18 mg/dL | [facility] | | | | | | [facility] | | | | | | MEDICAL | | | | | | CENTER - | | | | | | LABORATORY | | + + + + + + | Creatinine | 1.23 | 0.60 - 1.30 | [facility] | | | | | mg/dL | [facility] | | | | | | MEDICAL | | | | | | CENTER - | | | | | | LABORATORY | | + + + + + + | eGFR if not | 56 (L)Comment: | >=60 | [facility] | | | | GLOMERULAR FILTRATION | mL/min/1.73m2 | [facility] | | | [facility] [place] | RATE,ESTIMATED | | MEDICAL | | | | mL/min/1.58s5Pbdg than | | CENTER - | | [...] + + + + | Calcium | 9.3 | 8.3 - 10.5 | [facility] | | | | | mg/dL | [facility] | | | | | | MEDICAL | | | | | | CENTER - | | | | | | LABORATORY | | + + + + + + | Albumin | 4.4 | 3.2 - 5.0 g/dL | [facility] | | | | | | [facility] | | | | | | MEDICAL | | | | | | CENTER - | | | | | | LABORATORY | | + + + + + + | Bilirubin | 2.2 (H)Comment: This is | 0.1 - 1.5 mg/dL | [facility] | | | Total | an appended [...] + + + + | AST | 17Comment: This is an | 10 - 42 [...] + + + + | Alkaline | 85Comment: This is an | 40 - 110 [...] + + + + | Globulin | 2.1 | g/dL | [facility] | | | | | | [facility] | | | | | | MEDICAL | | | | | | CENTER - | | | | | | LABORATORY | | + + + + + + | Albumin/Angeles | 2.1 | | [facility] | | | bulin Ratio | | | [facility] | | | | | | MEDICAL | | | | | | CENTER - | | | | | | LABORATORY | | + + + + + + | BUN/Creatin | 20.3 | | [facility] | | | ine [...] + | [facility] | [address] | [place] | [phone] | | [facility] | | [address] | | | - LABORATORY | | | | + + + + + CBC with Differential (03/29/2015 8:32 AM PST) + + + + + + | Component | Value | Ref Range | Performed | Pathologist | | | | | At | Signature | + + + + + + | White Blood | 4.2 | 4.0 - 11.0 K/uL | [facility] | | | Cells | | | [facility] | | | | | | MEDICAL | | | | | | CENTER - | | | | | | LABORATORY | | + + + + + + | Red Blood | 2.94 (L) | 4.30 - 5.70 | [facility] | | | Cells | | M/uL | [facility] | | | | | | MEDICAL | | | | | | CENTER - | | | | | | LABORATORY | | + + + + + + | Hemoglobin | 9.7 (L) | 13.5 - 18.0 | [facility] | | | | | g/dL | [facility] | | | | | | MEDICAL | | | | | | CENTER - | | | | | | LABORATORY | | + + + + + + | Hematocrit | 28.8 (L) | 40.0 - 51.0 % | [facility] | | | | | | [facility] | | | | | | MEDICAL | | | | | | CENTER - | | | | | | LABORATORY | | + + + + + + | MCV | 97.8 | 83.0 - 101.0 fL | [facility] | | | | | | [facility] | | | | | | MEDICAL | | | | | | CENTER - | | | | | | LABORATORY | | + + + + + + | MCH | 33.0 | 28.0 - 35.0 pg | [facility] | | | | | | [facility] | | | | | | MEDICAL | | | | | | CENTER - | | | | | | LABORATORY | | + + + + + + | MCHC | 33.7 | 32.0 - 36.0 | [facility] | | | | | g/dL | [facility] | | | | | | MEDICAL | | | | | | CENTER - | | | | | | LABORATORY | | + + + + + + | RDW-CV | 18.8 (H) | <15.0 % | [facility] | | | | | | [facility] | | | | | | MEDICAL | | | | | | CENTER - | | | | | | LABORATORY | | + + + + + + | Platelet | 191 | 140 - 440 K/uL | [facility] | | | Count | | | [facility] | | | | | | MEDICAL | | | | | | CENTER - | | | | | | LABORATORY | | + + + + + + | MPV | 6.7 | fL | [facility] | | | | | | [facility] | | | | | | MEDICAL | | | | | | CENTER - | | | | | | LABORATORY | | + + + + + + | % | 69.7 | 45.0 - 82.0 % | [facility] | | | Neutrophils | | | [facility] | | | | | | MEDICAL | | | | | | CENTER - | | | | | | LABORATORY | | + + + + + + | % | 21.3 | 20.0 - 45.0 % | [facility] | | | Lymphocytes | | | [facility] | | | | | | MEDICAL | | | | | | CENTER - | | | | | | LABORATORY | | + + + + + + | % Monocytes | 7.0 | 4.0 - 12.0 % | [facility] | | | | | | [facility] | | | [facility] | [facility] | | | | | | [facility] - | | | | | | LABORATORY | | + + + + + + | % | 1.4 | 0.0 - 5.0 % | [facility] [...] + + + + | Absolute | 3.00 | 1.80 - 8.50 | [facility] | | | Neutrophils | | K/uL | [facility] | | | | | | [facility] | | | | | | [facility] - | | | | | | LABORATORY | | + + + + + + | Absolute | 0.90 | 0.60 - 3.20 | [facility] | [...] + + + + | Absolute | 0.10 | 0.00 - 0.40 | [facility] | [...] | | Basophils | | K/uL | [facility] | [...] + | [facility] | [address] | [place] | [phone] | | [facility] | | [id number] | | | - LABORATORY | | | | + + + + + PSA, Diagnostic (08/29/2014 11:15 AM PDT) + + + + + + | Component | Value | Ref Range | Performed | Pathologist | | | | | At | Signature | + + + + + + | PSA | 4.15 (H) | <=4.00 ng/mL | [facility] | [...] [address] | [place] | [phone] | | [facility] | | [address] | | | - LABORATORY | | | | + + + + + Comprehensive Metabolic Panel (08/29/2014 11:15 AM PDT) + + + + + + | Component | Value | Ref Range | Performed | Pathologist | | | | | At | Signature | + + + + + + | Na | 139 | 136 - 149 | [facility] | [...] + + + + | Cl | 108 | 98 - 109 mmol/L | [facility] | [facility] | [facility] | [facility] | | | | | [facility] - | | | | | | LABORATORY | | + + + + + + | CO2 | 28 | 24 - 31 mmol/L | [facility] | | | | | | [facility] | | | | | | [facility] | | | | | | [facility] - | | | | | | LABORATORY | | + + + + + + | Anion Gap | 3 | 3 - 16 mmol/L | [facility] | | | | | [facility] | | | | | | [facility] | | | | | | [facility] - | | | | | | LABORATORY | | + + + + + + | Glucose | 103 | 70 - 109 mg/dL | [facility] | | | | | | [facility] | | | | | | MEDICAL | | | | | | CENTER - | | | | | | LABORATORY | | + + + + + + | BUN | 25 (H) | 7 - 18 mg/dL | [facility] | | [facility] | | | [facility] | | | [facility] | | [facility] | | | | | | CENTER - | | | | | | LABORATORY | | + + + + + + | Creatinine | 1.20 | 0.60 - 1.30 | [facility] | | | | | mg/dL | [facility] | | | | | | MEDICAL | | | | | | CENTER - | | | | | | LABORATORY | | + + + + + + | eGFR if not | 58 (L)Comment: | >=60 | [facility] | | | | GLOMERULAR FILTRATION | mL/min/1.73m2 | [facility] | | | [place] | RATE,ESTIMATED | | MEDICAL | | | | mL/min/1.81i6Dodj than | | CENTER - | | [...] + + + + | Albumin | 4.6 | 3.2 - 5.0 g/dL | [facility] | | | | | | [facility] | | | | | | MEDICAL | | | | | | CENTER - | | | | | | LABORATORY | | + + + + + + | Bilirubin | 2.8 (H) | 0.1 - 1.5 mg/dL | [facility] | | | Total | | | [facility] | | | | | | MEDICAL | | | | | | CENTER - | | | | | | LABORATORY | | + + + + + + | Total | 6.8 | 6.0 - 7.8 g/dL | [facility] | | | Protein | | | [facility] | | | | | | MEDICAL | | | | | | CENTER - | | | | | | LABORATORY | | + + + + + + | AST | 20 | 10 - 42 U/L | [facility] | | | | | | [facility] | | | | | | [facility] | | | | | | CENTER - | | | | | | LABORATORY | | + + + + + + | ALT | 22 | 6 - 45 U/L | [facility] | | | | | | [facility] | | | | | | [facility]ICAL | | | | | | CENTER - | | | | | | LABORATORY | | + + + + + + | Alkaline | 80 | 40 - 110 U/L | [facility] | | | Phosphatase | | | [facility] | | [...] + + + + | Albumin/Angeles | 2.1 | | [facility] | | | bulin Ratio | | | [facility] | | | | | | MEDICAL | | | | | | CENTER - | | | | | | LABORATORY | | + + + + + + | BUN/Creatin | 20.8 | | [facility] | | | ine [...] + | [facility] | [address] | [place] | [phone] | | [facility] | | [address] | | | - LABORATORY | | | | + + + + + CBC with Differential (08/29/2014 11:15 AM PDT) + + + + + + | Component | Value | Ref Range | Performed | Pathologist | | | | | At | Signature | + + + + + + | White Blood | 4.4 | 4.0 - 11.0 K/uL | [facility] | | | Cells | | | [facility] | | | | | | MEDICAL | | | | | | CENTER - | | | | | | LABORATORY | | + + + + + + | Red Blood | 3.11 (L) | 4.30 - 5.70 | [facility] | | | Cells | | M/uL | [facility] | | | | | | MEDICAL | | | | | | CENTER - | | | | | | LABORATORY | | + + + + + + | Hemoglobin | 10.4 (L) | 13.5 - 18.0 | [facility] | | | | | g/dL | [facility] | | | | | | MEDICAL | | | | | | CENTER - | | | | | | LABORATORY | | + + + + + + | Hematocrit | 30.7 (L) | 40.0 - 51.0 % | [facility] | | | | | | [facility] | | | | | | [facility] | | | | | | CENTER - | | | | | | LABORATORY | | + + + + + + | MCV | 98.8 | 83.0 - 101.0 fL | [facility] | | | | | | [facility] | | | | | | [facility]ICAL | | | | | | CENTER - | | | | | | LABORATORY | | + + + + + + | MCH | 33.6 | 28.0 - 35.0 pg | [facility] | | | | | | [facility] | | | | | | [facility]ICAL | | | | | | CENTER - | | | | | | LABORATORY | | + + + + + + | MCHC | 34.0 | 32.0 - 36.0 | [facility] | | | | | g/dL | [facility] | | | | | | MEDICAL | | | | | | CENTER - | | | | | | LABORATORY | | + + + + + + | RDW-CV | 18.8 (H) | <15.0 % | [facility] | | | | | | [facility] | | | | | | [facility]ICAL | | | | | | CENTER - | | | | | | LABORATORY | | + + + + + + | Platelet | 181 | 140 - 440 K/uL | [facility] | | | Count | | | [facility] | | | | | | MEDICAL | | | | | | CENTER - | | | | | | LABORATORY | | + + + + + + | MPV | 7.1 | fL | [facility] | | | | | | [facility] | | | | | | [facility]ICAL | | | | | | CENTER - | | | | | | LABORATORY | | + + + + + + | % | 68.5 | 45.0 - 82.0 % | [facility] | | | Neutrophils | | | [facility] | | | | | | MEDICAL | | | | | | CENTER - | | | | | | LABORATORY | | + + + + + + | % | 20.2 | 20.0 - 45.0 % | [facility] | | | Lymphocytes | | | [facility] | | | | | | MEDICAL | | | | | | CENTER - | | | | | | LABORATORY | | + + + + + + | % Monocytes | 8.8 | 4.0 - 12.0 % | [facility] | | | | | | [facility] | | | | | | [facility]ICAL | | | | | | CENTER - | | | | | | LABORATORY | | + + + + + + | % | 1.6 | 0.0 - 5.0 % | [facility] | | | Eosinophils | | | [facility] | | | | | | MEDICAL | | | | | | CENTER - | | | | | | LABORATORY | | + + + + + + | % Basophils | 0.9 | 0.0 - 1.0 % | [facility] | | | | | | [facility] | | | | | | MEDICAL | | | | | | CENTER - | | | | | | LABORATORY | | + + + + + + | Absolute | 3.00 | 1.80 - 8.50 | [facility] | | | Neutrophils | | K/uL | [facility] | | | | | | MEDICAL | | | | | | CENTER - | | | | | | LABORATORY | | + + + + + + | Absolute | 0.90 | 0.60 - 3.20 | [facility] | | | Lymphocytes | | K/uL | [facility] | | | | | | MEDICAL | | | | | | CENTER - | | | | | | LABORATORY | | + + + + + + | Absolute | 0.40 | 0.00 - 1.00 | [facility] | | | Monocytes | | K/uL | [facility] | | | | | | MEDICAL | | | | | | CENTER - | | | | | | LABORATORY | | + + + + + + | Absolute | 0.10 | 0.00 - 0.40 | [facility] | [...] | | Basophils | | K/uL | [facility] | [...] ST. | [address] | [place] | [phone] | | [facility] | | [address] | | | - LABORATORY | | | | + + + + + documented in this encounter Visit Diagnoses + + | Diagnosis | + + | CA prostate, adenoca (HCC) - Primary Malignant neoplasm of prostate | + + | Malignant neoplasm of prostate (HCC) Malignant neoplasm of prostate | + + documented in this encounter"
--- OUTSIDE RECORDS SUMMARY | ~2019-12-09 | XMS | Encounter Summary ---
Demographics + + + | Address | [address] | | | [place] [address] | + + + | Home Phone | | + + + | Preferred Language | Unknown | + + + | Marital Status | | + + + | Sabianism Affiliation | 1041 | + + + | Race | Unknown | + + + | Ethnic Group | Unknown | + + + Author + + + | Author | [facility] | | | and [place] | + + + | Organization | [facility] | | | and [place] | + + + | Address | Unknown | + + + | Phone | Unavailable | + + + Support + + + + + | Name | Relationship | Address | Phone | + + + + + | Lesia Castaneda | ECON | [address] | | | | | [place] [address] | | + + + + + | Rosina Castaneda | ECON | Unknown | | + + + + + | Sandy Zamora | ECON | [address] | | | | [place] | | | | | [address] | | + + + + + Care Team Providers + +------+ + | Care Test Driller Name | Role | Phone | + +------+ + | Sergio Thompson MD | PCP | | + +------+ + Encounter Details +--------+ + + + + | Date | Type | Department | Care Team | Description | +--------+ + + + + | 08/29/ | Hospital | [facility] | Demond Castellon | Acquired hemolytic | | 2016 | Encounter | [facility] | MD [address] | anemia (HCC) | | | | [facility] [address] | [facility] | (Primary Dx); Iron | | | | [facility] | [place] [address] | deficiency anemia | | | | [place] [address] | [phone] | due to chronic blood | | | | [phone] | | loss; CA prostate, | | | | | | adenoca (HCC); Low | | | | | | hemoglobin; Anemia, | | | | | | hemolytic, acquired | | | | | | (HCC) | +--------+ + + + + Social [...] + + + | Blood Pressure | 136/81 | 08/30/2015 3:08 PM | | | | | PDT | | + + + + + | Pulse | 69 | 08/30/2015 3:08 PM | | | | | PDT | | + + + + + | Temperature | 36.4 C (97.5 F) | 08/30/2015 3:08 PM | | | | | PDT | | + + + + + | Respiratory Rate | 18 | 08/30/2015 3:08 PM | | | | | PDT | | + + + + + | Oxygen Saturation | 96% | 08/30/2015 3:08 PM | | | | | PDT | | + + + + + | Inhaled Oxygen | - | - | | | Concentration | | | | + + + + + | Weight | 78 kg (171 lb 15.3 | 08/30/2015 3:08 PM | | | | oz) | PDT | | + + + + + | Height | - | - | | + + + + + | Body Mass Index | 22.69 | 07/25/2015 9:09 AM | | | [...] + documented as of this encounter Progress Notes Demond Castellon MD - 08/30/2015 4:43 PM PDTFormatting of this note might be diff erent from the original. Hem-Onc Progress Note [facility] Pt. Name/Age/: Demond Castaneda 84 y.o. 1930 Med. Record Number: [id number] Date of admission: 08/30/2015 Assessment and plan: 1. 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 Stroke, November, 3. Angina Pectoris, Dec, 2013, S/p PCI, [facility] [place] Visit today to review results of bone marrow studies disclosing the findings of erythroid h yperplasia. We described this as a bone marrow response to shortening of erythrocyte lifesp an either referable to chronic bleeding or the possibility of hemolytic anemia. We have not considered this possibility in more [place] although there are clues to suggest its presence . For example patient's bilirubin remaining in the range of between 2-3 mg percent with a c orresponding increase in LDH level. Laboratory today including reticulocyte count, direct a ntiglobulin test and a serum haptoglobin are pending. We discussed reassuring findings from bone marrow including absence of dysplastic changes that would've indicated an underlying m yelodysplastic disorder. Nor were there any infiltrative changes to suggest metastatic canc er referable to patient's previous history of prostate cancer. Nor were there cytogenetic a bnormalities or abnormalities on flow cytometry to suggest incipient lymphoma. Patient's ma rrow iron stores were normal which is a voting against this being a chronic blood loss anemi a. Discussion today with regard to next steps in terms of evaluation of anemia. We will conta ct patient with results of direct antiglobulin test and reticulocyte count. 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 Subjective: The patient chart and medications were reviewed in detail and the patient was seen and exam ined. Demond Castaneda is a 84 y.o. male returns today for report concerning results of iliac c rest bone marrow aspiration and biopsy because of concern with regard to etiology of patient 's chronic anemia. Patient had been in approximately 2 weeks earlier for bone marrow prompted by worsening ane olaf but without clinical features to suggest active GI bleeding. Patient otherwise maintain s generally normal nutritional status. He enjoys normal renal function. He is not losing w eight. Previous history of prostate cancer the patient not known to have dissemination. Pretty bjectively patient experiencing more in the overall way of fatigue and weakness describing h ow it is difficult for him to throw a saddle up on to a horse. 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 He worries whether this would be more challengi ng this coming year. Interim history of injury with a contusion to the face caused when he startled a horse that rammed up into him. Of course became frightened after he sprinkled course with a soap solu tion. He does not have any areas of focal pain and he has not noticed any change in vision. PSH: Reviewed, no changes to admission H&P. [...] intolerance. Hematologic: Denies spontaneous bruising or bleeding. Integumentary: Denies rash, wounds or other skin concerns. Pain: Denies pain. Review of systems as above otherwise negative Scheduled Medications: Continuous Infusions: PRN Meds:. Allergy: Allergies Allergen Reactions Sulfa Antibiotics Nausea And Vomiting Objectives: Temp: 36.4 C (97.5 F) BP: 136/81 mmHg Pulse: 69 Resp: 18 SpO2: 96 % on Min/Max Temp past 24 hours:Temp Av.4 C (97.5 F) Min: 36.4 C (97.5 F) Max: 3 6.4 C (97.5 F) No intake or output data in the 24 hours ending 08/30/15 1643 Wt. Admission: Weight: 78 kg (171 lb 15.3 oz) Wt. Current: Weight: 78 kg (171 lb 15.3 o z) Physical Exam: Exam: General: The patient is alert and oriented. No acute distress. HEENT: Purpura and ecchymosis over the right side of the face and periorbital region. Sli ght icteric staining of the conjunctiva. Cardiovascular: Regular rate and rhythm, no murmur. [...] the Assessment and Plan. Recent Labs Lab 08/30/15 1531 WBC 4.1 HGB 9.7* HCT 27.8* PLT 195 Recent Labs Lab 08/30/15 1531 NA 140 K 3.9 CL 104 CO2 28 BUN 25* CREA 1.08 GLU 150* CALCIUM 9.4 BILITOT 3.0* AST 17 ALT 16 ALKPHOS 89 ALBUMIN 4.3 SPECIMEN(S): A BONE MARROW - CORE SPECIMEN(S): B BONE MARROW - ASPIRATION SPECIMEN(S): C COMPREHENSIVE FLOW CYTOMETRY ONLY CLINICAL HISTORY: Anemia, iron deficiency. D64.9 (anemia, unspecified) DIAGNOSIS SUMMARY: Peripheral blood - Normochromic, normocytic anemia. Bone marrow, posterior iliac crest, core biopsy and aspiration cell block: - Normocellular bone marrow with erythroid hyperplasia and benign lymphoid aggregates. - Increased iron stores. - Negative for metastatic carcinoma. (see comment). DIAGNOSTIC COMMENT: The clinical diagnosis of persistent anemia is noted. No dysplasia is noted involving any o f the cell lineages. The bone marrow shows a normocellular marrow with erythroid hyperplasia as evidence by the M:E ratio of 0.6:1. The erythroid cells comprise 48% of all nucleated cells. The iron s tain shows increase iron stores and no ringed sideroblasts. It is important to note that ane olaf of chronic disease can have impaired utilization of iron and show increase iron stores with normocytic or microcytic anemia. However correlation with iron studies is required. Given the history of prostatic cancer, a keratin immunostain (AE1/3) was performed on the core biopsy and is negative. Merlene s case was discussed with Dr. Castellon by Dr. Hyatt on 08/18/2015. SHH:smh:C2NR PERIPHERAL BLOOD: HEMOGRAM (08/16/15): WBC 4.6 K/uL, RBC 3.03 M/uL, HGB 10.0 g/dl, HCT 29.4%, MCV 97.0 fL, MCH 33.1 pg, MCHC 34.1 g/dl, RDW 18.5%, PLT 167 K/uL. DIFFERENTIAL (manual): 80% segmented neutrophils, 0% bands, 11% lymphocytes, 7% monocytes a nd 2% eosinophils. The red blood cells are decreased but otherwise normochromic normocytic with moderate aniso poikilocytosis. There is no background rouleaux formation. There is no basophilic stipplin g or cytoplasmic inclusions. The neutrophils are present and show normal lobation and cytoplasmic granulatio n. The lymphocytes are both mature with occasional reactive forms identified. The platel ets appear adequate in number with no platelet aggregates or clumping and shows normal granulation. No circul ating plasma cells are identified. BONE MARROW: BONE MARROW ASPIRATE SMEAR: The aspirate smear is well-spiculated and shows scattered hemat opoietic cells. Erythroid lineage is increased but shows sap director maturation. The myeloid lineage is present with sap director maturation. The megakaryocytes are scattered but otherwise shows normal morp hology. Blasts are not increased and dysplastic changes are not seen involving any of the cell lineages. Lymphocytes are scattered, increased, but otherwise shows normal morphology. Plasma cells are rare and scattered and unremarkable in appearance. A 500 cell differential yields the f ollowing: Blasts <1%, promyelocytes <1%, myelocytes 6%, metamyelocytes 5%, bands 6%, segs 9%, eosinophils 2% , monocytes 1%, lymphocytes 23%, nucleated red blood cells 48% for an M:E ratio of 0.6:1. BONE MARROW CORE BIOPSY AND ASPIRATION CELL BLOCK: A 1.8 cm decalcified core biopsy is avai lable for review and shows a normocellular bone (25%) for age of patient. Cellularity is b est estimated off the aspiration cell block. There is scattered trilineage hematopoiesis. Erythroid lineage appears to be increased but otherwise is unremarkable. Several well-circumscribed lymphoi d aggregates are identified composed of small ovoid lymphocytes. No clusters of immature cells are noted. There is no evidence of marrow fibrosis or granulomata. SPECIAL STAINS: - Iron stain (aspirate smear, aspiration cell block): Shows increased iron stores, no rin ged sideroblasts. IMMUNOHISTOCHEMICAL STAIN: - AE1/3 (gorman keratin) was performed on block A1 and is negative for metastatic carci noma. - CD3 (B1): stains the majority of the lymphocytes includes within the aggregates - CD5 (B1): stains the lymphocytes in a similar pattern as CD3 - CD20 (B1): stains much fewer number of lymphocytes but similar distribution as CD3 a nd CD5 - CD23 (B1) stains fewer scattered lymphocytes. - CD71(B1): stains the erythroid precursors that predominant - CD43 (B1): stain the T cells and some of the myeloid cells - CD138(B1): stains the scattered plasma cells approximately 2-3% of all cells - [place] KALIE (B1): stains the few plasma cells in a polytypic pattern - Lambda KALIE (B1) stains the few plasma cell in a polytypic pattern Controls are appropriately reactive. [facility] FLOW CYTOMETRY: INTERPRETATION: Bone marrow, aspiration, flow cytometric analysis: - No monoclonal B-cell, aberrant T-cell or increased blast population identified. [facility] FLOW CYTOMETRY ANALYSIS: FLOW DIFFERENTIAL (% Total CD45 vs. SSC gating): Myeloid 79%; Lymphoid 12%; Monocyte 3%; Dim CD45/Blast: 1%. Cell Count: 4.0 x 10*3/uL. POPULATION ANALYSIS: BLASTS: Analysis of the dim CD45 gate demonstrates about 1% blasts by CD34/CD117. LYMPHOID CELLS: The lymphocyte gate comprises 12% of total events and includes 69% T-cells with a normal CD4:CD8 ratio of 1.5:1 and normal gorman T-cell antigen expression. 17% of lympho cytes are polyclonal B-cells with a kappa:lambda ratio of 1.1:1. The remainders are NK-cells. MYELOID CELLS: The myeloid population comprises 79% of the total events. No aberrant or imm ature immunophenotypic expression is detected. MONOCYTES: The monocyte population comprises 3% of the total events. Monocytes are not in creased. No aberrant immunophenotypic expression is detected. PLASMA CELLS: About 0.2% plasma cells are detected by neg-dimCD45/CD38. Plasma cells are CD 45 dim and positive for CD19. ANTIBODIES USED: KAPPA, LAMBDA, CD20, CD10, CD19, CD23, CD38, FMC7, CD16, CD56, CD8, CD5, CD2, CD4, CD7, CD3 , CD14, CD33, CD13, HLADR, CD34, CD117, CD15, CD45: TOTAL ANTIBODIES USED: 24. TCS ADDITIONAL NOTES: This test was developed and its performance characteristics determined by [facility]. It has not been cleared or approved by the US Food and Drug Administration. The FDA matthew s not require this test to go through premarket FDA review. This test is used for clinical purposes. It shou ld not be regarded as investigational or for research. This laboratory is certified under the Clinical Laboratory Improvement Amendments (CLIA) as qualified to perform high complexity clinical l aboratory testing. PERFORMING LABORATORY: Tissue processing and slide preparation were performed by [facility], [address] [place] [address] (Staffing Operations Manager: Miguel Gomez D.O..; CLIA#: [id number]). Professional interpretation was performed by [facility], [address] [place] [address], [place] [address] , [place] [address] (Staffing Operations Manager: Dmitriy Canales M.D.; CLIA#: [id number]). FINAL DIAGNOSIS PERFORMED BY: Isacc Hyatt MD, Pathologist Aug 18 2015 9:25AM CYTOGENETICS: CYTOGENETIC ANALYSIS Result: 46,XY[20] Normal male karyotype Interpretation: Twenty normal cells were observed. 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 Cytogenetic Analysis Summary: Number of Cells Imaged and Analyzed: 20 Number of Cultures used for Analysis: 2 Number of Karyograms: 4 Banding Level: 350-400 Extra Cells Analyzed /Scored: 0 Banding Method: GTW/G The technical and professional components of the cytogenetic analysis were performed at [facility] ([place], [place], case # [id number]). Detailed report is kept on file. GROSS DESCRIPTION: A. The specimen received in formalin labeled with the patient's name and "bone marrow core" consists of multiple grayish-brown fragments of bone measuring 0.5 cm in greatest aggregate dimension. B. The specimen received in formalin labeled with the patient's name and "bone marrow aspir ation" consists of a crescent-shaped fragment of clotted blood measuring 1.8 x 1.9 x 0.6 cm, submitted in one cassette. [facility] ADDITIONAL NOTES: Immunohistochemical studies were performed on this case with the appropriate negative and p ositive controls that react as expected. This test was developed and its performance sivan cteristics determined by [facility]. It has not been cleared or approved by the U.S. Food an d Drug Administration. The FDA has determined that such clearance or approval is not neces pura. This test is used for clinical purposes. It should not be regarded as investigational or for research. [facility] is certified under the Clinical Laboratory Improvement Amendments of 1 988 (CLIA) as qualified to perform high complexity clinical laboratory testing. In this case, certain antibodies were performed by both immunohistochemistry and flow cytom etry analysis because flow cytometry analysis did not fully explain all the light microscopi c findings. Immunohistochemistry aided in the analysis. Both methods are deemed medically necessary i n this case. PERFORMING LABORATORY: Tissue processing and slide preparation were performed by [facility], [address] [place] [address], [address], [place] [address] (Staffing Operations Manager: Dmitriy Canales M.D. CLIA#: [id number]). Professional interpretation was performed by [facility], [facility], [address] [place] [address], [place] [address] (Staffing Operations Manager: Isacc Hyatt M.D.; CL IA#: [id number]). IMAGES: [id number]: [id number]: [id number] Diagnostician: Isacc Hyatt MD Pathologist Electronically Signed 08/21/2015 Electronically signed by: Demond Castellon, 08/30/2015 16:43 [facility] TIME SPENT 25 MIN. 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 Occasi onal wrong-word or sound-alike substitutions may have occurred due to the inherent epperson itations of voice recognition software. Please read the chart carefully and recognize, using context, where these substitutions have occurred. Natalya Paez CMA - 08/30/2015 3:09 PM PDTREVIEW OF SYSTEMS Constitutional: Denies fatigue. [...] intolerance. Hematologic: Denies spontaneous bruising or bleeding. Integumentary: Denies rash, wounds or other skin concerns. Pain: Denies pain. Note: Pt is here to review bmbx, states having an accident with a horse sat, causing bruisi ng and swelling on th right side of face. My chart: documented in this encounter Plan of Treatment +--------+---------+ + + + | Date | Type | Specialty | Care Team | Description | +--------+---------+ + + + | 02/01/ | Office | Cardiology | Jazlyn Almeida, | | | 2019 | Visit | | MD Vikram RICARDO | | | | | | [place] | | | | | | [address] | | | | | | | | +--------+---------+ + + + documented as of this encounter Procedures + +--------+ + + + | Procedure Name | Priori | Date/Time | Associated Diagnosis | Comments | | | ty | | | | + +--------+ + + + | CBC W/AUTO | STAT | 08/30/2015 | Acquired hemolytic | Results for this | | DIFFERENTIAL | | 3:31 PM | anemia (HCC) | procedure are in the | | | | PDT | | results section. | + +--------+ + + + | RETIC COUNT | Routin | 08/30/2015 | Acquired hemolytic | Results for this | | | e | 3:31 PM | anemia (HCC) | procedure are in the | | | | PDT | | results section. | + +--------+ + + + | MADDI, POLY | Routin | 08/30/2015 | Acquired hemolytic | Results for this | | | e | 3:31 PM | anemia (HCC) | procedure are in the | | | | PDT | | results section. | + +--------+ + + + | LACTATE | STAT | 08/30/2015 | Acquired hemolytic | Results for this | | DEHYDROGENASE | | 3:31 PM | anemia (HCC) | procedure are in the | | | | PDT | | results section. | + +--------+ + + + | HAPTOGLOBIN | Routin | 08/30/2015 | Acquired hemolytic | Results for this | | | e | 3:31 PM | anemia (HCC) | procedure are in the | | | | PDT | | results section. | + +--------+ + + + | COMPREHENSIVE | STAT | 08/30/2015 | CA prostate, | Results for this | | METABOLIC PANEL | | 3:31 PM | adenoca (HCC) | procedure are [...] | 1.08 | 0.60 - 1.30 | [facility] | [...] mL/min/1.73m2 | [facility] | | | [facility] | RATE,ESTIMATED | | MEDICAL | | | | mL/min/1.67k0Ubob than | | CENTER - | | [...] | | | | | | [facility] | | | | | | MEDICAL [...] [address] | [place] | [phone] | | [facility] | | [address] | | | - LABORATORY | | | | + + + + + Retic Count (08/30/2015 3:31 PM PDT) + +---------+ + + + | Component | Value | Ref Range | Performed | Pathologist | | | | | At | Signature | + +---------+ + + + | % | 4.4 (H) | 0.5 - 1.5 % | [facility] | | | Reticulocyt | | | [facility] | | | e Count | | | MEDICAL | | | | | | CENTER - | | | | | | LABORATORY | | + +---------+ + + + | Absolute | 0.1255 | M/uL | [facility] | | | Reticulocyt | | | [facility] | | | e Count | | | MEDICAL | | | | | | CENTER - | | | | | | LABORATORY | | + +---------+ + + + + + | Specimen | + + | Blood | + + + + + + + | Performing | Address | City/State/Zipcode | Phone Number | | Organization | | | | + + + + + | [facility] | [address] | [place], [place] | [phone] | | [facility] | | [address] | | | - LABORATORY | | | | + + + + + Lactate Dehydrogenase (08/30/2015 3:31 PM PDT) + +---------+ + + + | Component | Value | Ref Range | Performed | Pathologist | | | | | At | Signature | + +---------+ + + + | LDH TOTAL | 189 (H) | 91 - 180 U/L | [facility] | | | | | | [facility] | | | | | | MEDICAL | | | | | | CENTER - | | | | | | LABORATORY | | + +---------+ + + + + + | Specimen | + + | Blood | + + + + + + + | Performing | Address | City/State/Zipcode | Phone Number | | Organization | | | | + + + + + | [facility] | [address] | [place] | [phone] | | [facility] | | [address] | | | - LABORATORY | | | | + + + + + Haptoglobin (08/30/2015 3:31 PM PDT) + + + + + + | Component | Value | Ref Range | Performed | Pathologist | | | | | At | Signature | + + + + + + | Haptoglobin | 34 (L)Comment: Testing | 40 - 240 mg/dL | [facility] | | | | Performed: [facility], [address] | | [facility] | | | | [address], [place] | | | | | | [address] | | | | + + + + + + + + | Specimen | + + | Blood specimen | | (specimen) | + + + + + + + | Performing | Address | City/State/Zipcode | Phone Number | | Organization | | | | + + + + + | [facility] | [address] | [place] [address] | [phone] | + + + + + MADDI (08/30/2015 3:31 PM PDT) + + + + + + | Component | Value | Ref Range | Performed | Pathologist | | | | | At | Signature | + + + + + + | MADDI | Negative | | [facility] | | | POLYSPECIFI | | | [facility] | | | C (IGG + | | | MEDICAL | | | COMPLEMENT) | | | CENTER - | | [...] St | [place] | | | [facility] | | [address] | | | - BLOOD BANK | | | | + + + + + CBC w/ Auto Differential (08/30/2015 3:31 PM PDT) + + + + + + | Component | Value | Ref Range | Performed | Pathologist | | | | | At | Signature | + + + + + + | White Blood | 4.1 | 4.0 - 11.0 K/uL | [facility] | | | Cells | | | [facility] | | | | | | MEDICAL | | | | | | CENTER - | | | | | | LABORATORY | | + + + + + + | Red Blood | 2.88 (L) | 4.30 - 5.70 | [facility] | | | Cells | | M/uL | [facility] | | | | [...] + + + + | Hematocrit | 27.8 (L) | 40.0 - 51.0 % | [facility] | | | | | | [facility] | | | | | | MEDICAL | | | | | | CENTER - | | | | | | LABORATORY | | + + + + + + | MCV | 96.4 | 83.0 - 101.0 fL | [facility] | | | | | | [facility] | | | | | | MEDICAL | | | | | | CENTER - | | | | | | LABORATORY | | + + + + + + | MCH | 33.7 | 28.0 - 35.0 pg | [facility] | | | | | | [facility] | | | | | | MEDICAL | | | | | | CENTER - | | | | | | LABORATORY | | + + + + + + | MCHC | 34.9 | 32.0 - 36.0 | [facility] | | | | | g/dL | [facility] | | | | | | MEDICAL | | | | | | CENTER - | | | | | | LABORATORY | | + + + + + + | RDW-CV | 18.2 (H) | <15.0 % | [facility] | | | | | | [facility] | | | | | | MEDICAL | | | | | | CENTER - | | | | | | LABORATORY | | + + + + + + | Platelet | 195 | 140 - 440 K/uL | [facility] [...] + + + + | % | 65.5 | 45.0 - 82.0 % | [facility] | | | Neutrophils | | | [facility] | | | | | | MEDICAL | | | | | | CENTER - | | | | | | LABORATORY | | + + + + + + | % | 23.0 | 20.0 - 45.0 % | [facility] | | | Lymphocytes | | | [facility] | | | | | | MEDICAL | | | | | | CENTER - | | | | | | LABORATORY | | + + + + + + | % Monocytes | 8.7 | 4.0 - 12.0 % | [facility] | | | | | | [facility] | | | | | | MEDICAL | | | | | | CENTER - | | | | | | LABORATORY | | + + + + + + | % | 2.0 | 0.0 - 5.0 % | [facility] | | | Eosinophils | | | [facility] | | | | | | MEDICAL | | | | | | CENTER - | | | | | | LABORATORY | | + + + + + + | % Basophils | 0.8 | 0.0 - 1.0 % | [facility] | | | | | | [facility] | | | | | | MEDICAL | | | | | | CENTER - | | | | | | LABORATORY | | + + + + + + | Absolute | 2.70 | 1.80 - 8.50 | [facility] | [...] | | Basophils | | K/uL | [facility] | | | | [...] [address] | [place] | [phone] | | [facility] | | [address] | | | - LABORATORY | | | | + + + + + documented in this encounter Visit Diagnoses + + | Diagnosis | + + | Acquired hemolytic anemia (HCC) - Primary Acquired hemolytic anemia, unspecified | + + | Iron deficiency anemia due to chronic blood loss Iron deficiency anemia secondary to | | blood loss (chronic) | + + | CA prostate, adenoca (HCC) Malignant neoplasm of prostate | + + | Low hemoglobin Anemia, unspecified | + + | Anemia, hemolytic, acquired (HCC) Acquired hemolytic anemia, unspecified | + + documented in this encounter
--- OUTSIDE RECORDS SUMMARY | ~2019-12-09 | XMS | Encounter Summary ---
Demographics + + + | Address | [address] | | | [place] [address] | + + + | Home Phone | | + + + | Preferred Language | Unknown | + + + | Marital Status | | + + + | Scientology Affiliation | Unknown | + + + | Race | White | + + + | Ethnic Group | Not or | + + + Author + + + | Author | [facility] | + + + | Organization | [facility] | + + + | Address | Unknown | + + + | Phone | Unavailable | + + + Support + + +---------+ + | Name | Relationship | Address | Phone | + + +---------+ + | Sandy Zamora | ECON | Unknown | | + + +---------+ + Care Team Providers + +------+ + | Care Sky Line Yarder Name | Role | Phone | + +------+ + | Jerome Ray MD | PCP | | + +------+ + Reason for Visit +--------+ + | Reason | Comments | +--------+ + | Other | | +--------+ + Encounter Details +--------+ + + + + | Date | Type | Department | Care Team | Description | +--------+ + + + + | 09/24/ | Telephone | [facility] [place] [facility] | Other | | 2015 | | [facility] at [place] | DDS [address] | | | | | [facility] [place] | [address] | | | | | [address] | [place], [place] | | | | | [place] | [address] | | | | | [address] | [phone] | | | | | floor [place], [place] | | | | | | [address] | | | | | | [phone] | | | +--------+ + + + [...] Not on filedocumented as of this encounter Visit Diagnoses Not on filedocumented in this encounter"
--- OUTSIDE RECORDS SUMMARY | ~2019-12-09 | XMS | Encounter Summary ---
Demographics + + + | Address | [address] | | | [place] [address] | + + + | Home Phone | | + + + | Preferred Language | Unknown | + + + | Marital Status | | + + + | Taoism Affiliation | 1041 | + + + | Race | Unknown | + + + | Ethnic Group | Unknown | + + + Author + + + | Author | [facility] | | | and [place] | + + + | Organization | [facility] | | | and [place] | + + + | Address | Unknown | + + + | Phone | Unavailable | + + + Support + + + + + | Name | Relationship | Address | Phone | + + + + + | Lesia Castaneda | ECON | [address] | | | | | [place] [address] | | + + + + + | Rosina Castaneda | ECON | Unknown | | + + + + + | Sandy Zamora | ECON | [address] | | | | [address] | | | | | [address] | | + + + + + Care Team Providers + +------+ + | Care Art Specialist Name | Role | Phone | + +------+ + PCP | Unavailable | + +------+ + Encounter Details +--------+ + + + + | Date | Type | Department | Care Team | Description | +--------+ + + + + | 10/18/ | Hospital | [facility] | | | | 2004 - | Encounter | MED [facility] GENER[facility] OP | | | | | | CONV DEPT [address] | | | | 01/16/ | | [place], | | | | 2004 | | [place] [address] | | | | | | [phone] | | | +--------+ + + + [...] | | | | | [address] [place], [place] | | | | | | [address] | | | | | | | | +--------+---------+ + + + documented as of this encounter Visit Diagnoses Not on filedocumented in this encounter"
--- OUTSIDE RECORDS SUMMARY | ~2019-12-09 | XMS | Encounter Summary ---
Demographics + + + | Address | [address] | | | [place] [address] | + + + | Home Phone | | + + + | Preferred Language | Unknown | + + + | Marital Status | | + + + | Yarsani Affiliation | 1041 | + + + [...] + | Lesia Castaneda | ECON | [address] | | | | | [place] [address] | | + + + + + | Rosina Castaneda | ECON | Unknown | | + + + + + | Sandy Zamora | ECON | [address] | | | | [address] | | | | | [address] | | + + + + + Care Team Providers + +------+ + | Care Page Designer Name | Role | Phone | + +------+ + PCP | Unavailable | + +------+ + Encounter Details +--------+ + + + + | Date | Type | Department | Care Team | Description | +--------+ + + + + | 12/28/ | Hospital | [facility] | | | | 1999 - | Encounter | [facility] | | | | | | CENTER [address] | | | | 03/28/ | | [place] | | | | 1999 | | [address] | | | | | | [phone] | | | +--------+ + + + [...] | | | | | [address] [place], [place] | | | | | | [address] | | | | | | | | +--------+---------+ + + + documented as of this encounter Visit Diagnoses Not on filedocumented in this encounter"
--- OUTSIDE RECORDS SUMMARY | ~2019-12-09 | XMS | Encounter Summary ---
Demographics + + + | Address | [address] | | | [place] [address] | + + + | Home Phone | | + + + | Preferred Language | Unknown | + + + | Marital Status | | + + + | Confucianism Affiliation | [id number] | + + + | Race | Unknown | + + + | Ethnic Group | Unknown | + + + Author + + + | Author | [facility] | | | and [place] | + + + | Organization | [facility] | | | and [place] | + + + | Address | Unknown | + + + | Phone | Unavailable | + + + Support + + + + + | Name | Relationship | Address | Phone | + + + + + | Lesia Rose | ECON | [address] | | | | | [place] [address] | | + + + + + | Rosina Rose | ECON | Unknown | | + + + + + | Sandy Zamora | ECON | [address] | | | | | [place] | | | | | [address] | | + + + + + Care Team Providers + +------+ + | Care Training And Documentation Specialist Name | Role | Phone | [...] | | | | | ([facility]) Hip | | | | | | | fracture, | | | | | | | right, | | | | | | | closed, | | | | | | | initial | | | | | | | encounter | | | | | | | ([facility]) | | | | | | | Coronary | | | | | | | artery | | | | | | | disease | | | | | | | involving | | | | | | | cap[place] | | | | | | | coronary | | | | | | | artery of | | | | | | | cap[place] heart | | | | | | [...] | | | | | ([facility]) | | | | | | [...] | +--------+ + + + + | 11/15/ | Hospital | [facility] | Keanu Hester MD | Hip fracture, right, | | 2016 - | Encounter | [facility] | [address] | closed, initial | | | | [address] | [place], [place] | encounter (HCC) | | 11/18/ | | [place] [address] | [id number] | (Primary Dx); | | 2015 | | [phone] | | Anemia, unspecified | | | | | Rayo Anderson | type; Coronary | | | | | MD [address] | artery disease | | | | | [facility] | involving cap[place] | | | | | [place] [address] | coronary artery of | | | | | [phone] | [place] heart without | | | | | | angina pectoris; | | | | | | Closed right hip | | | | | | fracture, initial | | | | | | encounter ([facility]); Low | | | | | | hemoglobin; S/P | | | | | | coronary artery | | | | | | stent placement | +--------+ + + + + Social [...] + + + | Blood Pressure | 124/58 | 11/19/2015 4:33 PM | | | | | PDT | | + + + + + | Pulse | 79 | 11/19/2015 4:33 PM | | | | | PDT | | + + + + + | Temperature | 37.6 C (99.7 F) | 11/19/2015 4:33 PM | | | | | PDT | | + + + + + | Respiratory Rate | 20 | 11/19/2015 4:33 PM | | | | | PDT | | + + + + + | Oxygen Saturation | 92% | 11/19/2015 4:33 PM | | | | | PDT [...] Martinez MD - 11/19/2015 2:46 PM PDT [facility] DISCHARGE SUMMARY Pt. Name/Age/: Dena Rose 84 [...] signed by: Keith Martinez MD, 11/19/2015 14:46 [facility] Portions of this chart may have been created with Minicabster voice recognition software. Occasi onal wrong-word or [...] documented as of this encounter Progress Notes Rayo Anderson MD - 11/19/2015 11:18 AM PDTOrtho: Hospitalist note reviewed Mild pain with movement Dressing intact and only mild swelling Continue PT increasing activity as tolerated. eith Martinez MD - 11/18/2015 12:56 PM PDT [facility] PMG Hospitalist Progress Note Dena Rose is a [...] as outlined above. Keith Martinez 11/18/2015 12:56 [facility] Portions of this chart may have been created with Minicabster voice recognition software. Occasi onal wrong-word or [...] of packed cells and discussed with Hospitalist. asch, Tejal Perez MD - 11/17/2015 1:04 PM PDT [facility] HOSPITALIST PROGRESS NOTE PATIENT NAME: Dena Rose [...] this chart may have been created using Minicabster voice recognition software. Occas ional wrong-word or "sound alike" substitutions may have occurred due to the inherent limita tions of voice recognition software. Please read chart carefully and recognize using context where these substitutions have occurred.Electronically signed by Tejal Altamirano MD at 1:07 PM Bharat Cortez PharmD - 11/16/2015 2:41 PM PDTFormatting of [...] medication list or bottles [] MAR from SNF facility: [] Doctor's office: [] Pharmacy list names if received from multiple pharmacies: [] [employer] insurance reported information [] Care Everywhere [] Other sources: Vaccines up to date? Yes No Unsure Influenza [x] patients states sometime Fall of 2014 [] [] Pneumococcal [] [] [x] Tdap [] [] [x] Shingles [x] patients states sometime Fall of 2014 [] [] Noted medications discrepancies or medication-related issues: Medication added: Celecoxib 200 mg PO daily Other: [facility] is main pharmacy now [facility] in [place] is used for vitamins and anything that needs to be acquired emerge ntly Medication review performed and electronically signed by Bharat De Leon PHARMD 6 14:42 document ed in this encounter H&P Notes Rayo Anderson MD - 11/16/2015 4:25 PM PDT [facility] [address] [facility] [place] [facility] [address] HISTORY AND PHYSICAL RAYO ANDERSON MD Patient: DENA ROSE Admitting: RAYO ANDERSON MR #: [id number] LOC: PT TYPE: Adm Date: 11/16/2015 : [...] then brought to the emergency room at [facility] where x-rays r evealed an intracapsular hip [...] wearing out or loosening of the components assisted, etc. He also understands th e possibilities [...] 16:25:37 Transcribed on 11/16/2015 17:09:35 by job# [id number] Confirmation #: [id number] cc: IMER DENA BOO documented in this encounter Consult Notes Selma Zayas RN - 11/17/2015 12:09 PM PDTOrder received for acute rehab consult. Await ing therapy evaluations to be completed before making a recommendation on rehab services; IP R will follow progress. Thank you for this referral. Electronically signed by: GISELLE Fabian am 11/17/2015 12:09 Tejal Carter MD - 11/16/2015 3:01 PM PDT [facility]G Hospitalist Consult Note Pt. Name/Age/: Dena [...] lamas placed if possible. He has known qc chemist mily anemia s/p evaluation by GI and heme/onc and is aware of increased risk with CAD, antico agulation medications, CVA risk, bleeding, etc. Final decision making per ortho attending, b lood bank products as needed- patient [...] / COLONOSCOPY; Surgeon: Dena More MD; Location: [facility] FAMILY HISTORY: family history is not [...] to OR tonight. Tejal Altamirano 11/16/2015 15:01 [facility] Portions of this chart may have been created with Minicabster voice recognition software. Occasi onal wrong-word or [...] Anemia CVA (cerebral vascular accident) ([facility]) H/O: facial fractures Fx eight/more rib-closed Past Surgical History Procedure Laterality Date Cath placement 05/23/15 Coronary artery stent 07/07/14 Left femur fracture repair Brachytherapy breast Egd and colonoscopy N/A 07/25/2015 Procedure: EGD / COLONOSCOPY; Surgeon: Dena More MD; Location: [facility] SOCIAL HISTORY: History Social History Marital [...] Miscellaneous Notes Plan of Care - Meera Razo, OT - 11/19/2015 3:25 PM PDTProblem: Patient [...] with pt and family re: use of adjuster leader for pants application hook of dressing sti ck for removal of socks. Patient Status/Goals Reflects last filed data of patient status; may be from multiple contributors. ADLs Pt seen for sock aid instruction. Discussion re use of adjuster leader for applying pants and ashlee ving socks LB, Level of [place]: (Pt able to apply both socks using sock aid.) STG Goals LB Dressing Goal, [place] Level: contact guard assist Adaptive Equipment: adjuster leader, dressing stick, sock-aid Time to Achieve: 2 [...] 11/19/2015 15:16 lan of Care - Yolanda Voss PTA - 11/19/2015 2:55 PM PDTProblem: Patient Care [...] be from multiple contributors. Gait Level of [place] : verbal cues required, contact guard assist Assistive Device: 2 wheeled walker (FWW) Distance (feet): (60 feet) Gait Pattern Analysis: 3-point gait Gait Deviations: limb motion velocity decreased, step length decreased, stride length decre ased, eys-mf-sowqt clearance decreased Impairments: pain, ROM decreased Stairs (4) Number of Stairs: (4) Handrail Location: both sides Level of [place]: contact guard assist, verbal cues required, 2 person assist required Assistive Device: 2 wheeled walker (FWW) Technique Used: step to step (ascending) Safety Issues: (ROM L knee limited to 90 degrees) Impairments: pain, ROM decreased Transfers Bed-Chair, Level of [place]: minimum assist (75% patient effort), 2 person assist requ ired, verbal cues required Chair-Bed, Level of [place]: minimum assist (75% patient effort), verbal cues required , 2 person assist required Uzo-Elixu-Kxv, Assistive Device: 2 wheeled walker (FWW) Sit-Stand, Level of [place]: verbal cues required, contact guard assist Stand-Sit, Level of [place]: verbal cues required, contact guard assist [id number]-Zyn, Assistive Device: 2 wheeled walker (FWW) Safety Issues: step length decreased Impairments: ROM decreased, pain, strength decreased, decreased flexibility Bed Mobility Assistive Device: bed rails Supine to Sit, Level of [place]: verbal cues required, contact guard assist Sit to Supine, Level of [place]: verbal cues required, minimum assist (75% patient [...] Activity Type: supine to sit/sit to supine [place] Level: modified independence Time to Achieve: 3 days Goal Status: progressing toward goal Transfer Training Goal, Activity Type: bed to chair /chair to bed [place] Level: modified independence Assistive Device: 2 wheeled walker (FWW) Time to Achieve: 3 days Goal Status: progressing toward goal Gait Training Goal, [place] Level: supervision required Assistive Device: 2 wheeled walker (FWW) Distance: 50 Time to Achieve: 3 days Goal Status: progressing toward goal Stairs Goal, [place] Level: supervision required Assistive Device: cane (straight, [...] gt and general mobility. R hip precautions. nee ds work on sit<>stand transfers. Electronically signed by: [...] than usual. lan of Care - Yolanda Mcknight, CAPACITY PLANNING ENGINEER - 11/19/2015 9:32 AM PDTProblem: Patient Care [...] be from multiple contributors. Gait Level of [place] : contact guard assist Assistive Device: 2 wheeled walker (FWW) Distance (feet): (50 feet) Gait Pattern Analysis: 3-point gait Gait Deviations: lizette decreased, limb motion velocity decreased, stride length decreased Impairments: ROM decreased, pain Stairs Transfers Max cuing to maintain post.hip precautions. Bed-Chair, Level of [place]: minimum assist (75% patient effort), 2 person assist requ ired, verbal cues required Chair-Bed, Level of [place]: minimum assist (75% patient effort), verbal cues required , 2 person assist required [id number], Assistive Device: 2 wheeled walker (FWW) Sit-Stand, Level of [place]: contact guard assist, verbal cues required Stand-Sit, Level of [place]: contact guard assist, verbal cues required Dom-Rfueo-Cwr, Assistive Device: 2 wheeled walker (FWW) Safety Issues: weight-shifting ability decreased, step length decreased, steps too close fr ont assistive device Impairments: ROM decreased Bed Mobility Supine to Sit, Level of [place]: verbal cues required, contact guard assist Sit to Supine, Level of [place]: verbal cues required Safety Issues: decreased use [...] Activity Type: supine to sit/sit to supine [place] Level: modified independence Time to Achieve: 3 days Goal Status: progressing toward goal Transfer Training Goal, Activity Type: bed to chair /chair to bed [place] Level: modified independence Assistive Device: 2 wheeled walker (FWW) Time to Achieve: 3 days Goal Status: progressing toward goal Gait Training Goal, [place] Level: supervision required Assistive Device: 2 wheeled walker (FWW) Distance: 50 Time to Achieve: 3 days Goal Status: progressing toward goal Stairs Goal, [place] Level: supervision required Assistive Device: cane (straight, [...] be seen yeste rday. Discussed with D/C communications planner. Cont with TH act this pm. [...] Yolanda Mckinley PTA, 11/18/2015 15:02 lan of Care - Alenk Silvina douglass MSW - 11/18/2015 1:41 PM Maryuri Anderson states that patient should be able to discharge home VS IPR, however, Dr Calvo will come in Friday to see if patient is a carmen date for IPR. This CM spoke with patient in regards to his needs if he were to discharge ike e. He states that he has a walker and crutches. We dicussed home health and he is interested in having RN and therapies. This CM called [facility] who report that they woul d be able to accept the referral and follow up by Friday. This CM left a sticky note for Dr Anderson to order HH at discharge. Electronically signed by: SARAH Davila 11/18/2015 1 3:43 lan of Care - Gloria RockMISSY - 11/18/2015 12:09 PM PDTProblem: Patient Care [...] 11/18/2015 12:09 lan of Care - Yolanda Chung PTA - 11/18/2015 9:50 AM PDTProblem: Patient Care [...] toileting, use bed gorman at first, the [facility] when able to stand and then encourage [...] hypo, BM 11/14. No s/s of infection. Caleb hindsg CDI. lan of Care - Arabella Dasilva [...] toileting, use bed gorman at first, the [facility] when able to stand and then encourage [...] known. Consult for inpatient rehab. lan of Rachel Woodson, PT - 11/17/2015 5:27 PM PDTFormatting of [...] toileting, use bed gorman at first, the [facility] when able to stand and then encourage [...] fracture, right, closed, initial encounter ([facility]) Yes D64.9 Anemia, unspecified type I25.10 Coronary artery disease involving [place] coronary artery of [place] heart without angina pectoris Date of Onset: 11/16/15 Past Medical History Diagnosis Date Carotid stenosis Femur fracture, left ([facility]) Basal cell carcinoma of skin Actinic keratosis Eczema Osteoarthritis Hearing loss wears hearing aids Pes planus Wears dentures full upper CAD (coronary artery disease) Anemia CVA (cerebral vascular accident) ([facility]) H/O: facial fractures Fx eight/more rib-closed Past Surgical History Procedure Laterality Date Cath placement 05/23/15 Coronary artery stent 07/07/14 Left femur fracture repair Brachytherapy breast Egd and colonoscopy N/A 07/25/2015 Procedure: EGD / COLONOSCOPY; Surgeon: Dena More MD; Location: [facility] Hip arthroplasty Right 11/16/2015 Procedure: Right Hemiarthroplasty Hip ; Surgeon: Rayo Anderson MD; Location: [facility] Allergies Allergen Reactions Sulfa Antibiotics [...] spouse Provides Primary Care For: (Has a [employer] ranch) Living Environment/Accessibility: Lives With: spouse Living [...] be from multiple contributors. Gait Level of [place] : contact guard assist, 2 person assist required, verbal cues require d Assistive Device: 2 wheeled walker (FWW) Distance (feet): 25 Gait Pattern Analysis: 3-point gait Gait Deviations: lizette decreased, ouldi-bk-znleuv ratio decreased, double stance time inc reased, limb motion velocity decreased, jzx-ig-lajgj clearance decreased, step length decrea sed, weight-shifting ability decreased Impairments: strength decreased, impaired balance, decreased flexibility Stairs N/T Transfers Max cuing to maintain post.hip precautions. Bed-Chair, Level of [place]: minimum assist (75% patient effort), 2 person assist requ ired, verbal cues required Chair-Bed, Level of [place]: minimum assist (75% patient effort), verbal cues required , 2 person assist required Iko-Ipbjc-Tdi, Assistive Device: 2 wheeled walker (FWW) Sit-Stand, Level of [place]: Moderate assist of 2 person, verbal cues required Stand-Sit, Level of [place]: verbal cues required, 2 person Minimum assist Cep-Bjuyp-Zvx, Assistive Device: 2 wheeled walker (FWW) Safety Issues: weight-shifting ability decreased, step length decreased, steps too close fr ont assistive device Impairments: pain, ROM decreased, decreased flexibility, strength decreased Bed Mobility Supine to Sit, Level of [place]: verbal cues required, 2 person Moderate assist (50% p atient effort) Sit to Supine, Level of [place]: 2 person Max A verbal cues required [...] Activity Type: supine to sit/sit to supine [place] Level: modified independence Time to Achieve: 3 days Goal Status: new Transfer Training Goal, Activity Type: bed to chair /chair to bed [place] Level: modified independence Assistive Device: 2 wheeled walker (FWW) Time to Achieve: 3 days Goal Status: new Gait Training Goal, [place] Level: supervision required Assistive Device: 2 wheeled walker (FWW) Distance: 50 Time to Achieve: 3 days Goal Status: new Stairs Goal, [place] Level: supervision required Assistive Device: cane (straight, [...] 2P FWW progressive gait, orthostatic, bed mobility torrie lafleur. Electronically signed by: RACHEL PINEDA, PT, 11/17/2015 17:26 lan of Care - Yolanda Chung PTA - 11/17/2015 2:50 PM PDTProblem: Patient Care [...] be from multiple contributors. Gait Level of [place] : contact guard assist, 2 person assist required, verbal cues require d Assistive Device: 2 wheeled walker (FWW) Distance (feet): (10 feet) Transfers Sit-Stand, Level of [place]: contact guard assist, verbal cues required Stand-Sit, Level of [place]: verbal cues required, contact guard assist Ufd-Buvfj-Pll, Assistive Device: 2 wheeled walker (FWW) Impairments: pain, ROM decreased, decreased flexibility, strength decreased Bed Mobility Supine to Sit, Level of [place]: verbal cues required, minimum assist (75% patient eff ort) Sit to Supine, Level of [place]: verbal cues required Safety Issues: decreased use [...] 11/17/2015 14:45 lan of Care - Miriam Coffey, OT - 11/17/2015 2:39 PM PDT Problem: [...] toileting, use bed gorman at first, the [facility] when able to stand and then encourage [...] fracture, right, closed, initial encounter ([facility]) Yes D64.9 Anemia, unspecified type I25.10 Coronary artery disease involving cap[place] coronary artery of [place] heart without angina pectoris Date of Onset: 11/16/15 Past Medical History Diagnosis Date Carotid stenosis Femur fracture, left ([facility]) Basal cell carcinoma of skin Actinic keratosis Eczema Osteoarthritis Hearing loss wears hearing aids Pes planus Wears dentures full upper CAD (coronary artery disease) Anemia CVA (cerebral vascular accident) ([facility]) H/O: facial fractures Fx eight/more rib-closed Past Surgical History Procedure Laterality Date Cath placement 05/23/15 Coronary artery stent 07/07/14 Left femur fracture repair Brachytherapy breast Egd and colonoscopy N/A 07/25/2015 Procedure: EGD / COLONOSCOPY; Surgeon: Dena More MD; Location: [facility] Hip arthroplasty Right 11/16/2015 Procedure: Right Hemiarthroplasty Hip ; Surgeon: Rayo Anderson MD; Location: [facility] Allergies Allergen Reactions Sulfa Antibiotics [...] ambulati on. He and his live in [place], and have 2 horses he cares for [...] Recommendations: 2 wheeled walker (FWW), shower chair, adjuster leader, seat riser Identified Problems Needing Skilled Intervention: [...] Transfer Training Goal, Activity Type: walk-in shower [place] Level: supervision required, contact guard assist Assistive Device: 2 wheeled walker (FWW), shower chair Time to Achieve: 2 - 3 days Goal Status: new Grooming Goal, [place] Level: set up required Adaptive Equipment: none Position: standing Time to Achieve: 2 - 3 days Goal Status: new LB Dressing Goal, [place] Level: contact guard assist Adaptive Equipment: adjuster leader, dressing stick, sock-aid Time to Achieve: 2 [...] plan for care. Today's Treatment Start Time: 09 Stop time: 1020 Time Calculation: 40 minutes Missed Treatment Time: [...] Miriam Izaguirre OT, 11/17/2015 14:32 lan of Vivien - Marion Burnham - 11/17/2015 11:53 AM [...] toileting, use bed gorman at first, the BS when able to stand and then encourage [...] infection. lan of Care - Asif Owens, ISSAC - 11/17/2015 12:32 AM PDTProblem: Patient Care [...] at bedside for patient. p Note - Maryam Anderson MD - 11/16/2015 8:57 PM [facility] Pt. Name/Age/: Dena Rose 84 y.o. 1930 Med. Record Number: [id number] Date of admission: 11/16/2015 Date of Operation/Procedure: 11/16/2015 Preoperative Diagnosis: 1. Closed Femoral Neck Fracture Right Hip Postoperative Diagnosis: 1. Same Surgeon: Rayo Anderson MD Shipping Services Sales Representative: Pedro BOB Anesthesia Provider(s): Anesthesiologist: Patrick Springer MD Anesthesia Type: Choice PROCEDURE: Repair of Hip fracture with endoprosthesis OPERATING SURGEON: Rayo Anderson MD FINDINGS: Displaced femoral neck fracture COMPONENTS USED: Depuy Barnwell Basic Femur size 8 with a +10 [...] nt from the original. Brief Operative Note Dena Rose 84 y.o. male 1930 [id number] Proc. Date 11/16/2015 Preop Dx Closed fracture of neck of right femur, initial encounter ([facility]) [S72.001A] Postop Dx same Procedure Right Hemiarthroplasty Hip Anesthesia Choice Surgeon Rayo Anderson MD - Primary Newspaper Columnist EBL 850cc Findings Findings consistent with scheduled procedure. No other abnormalities found. Complications none Specimens * No specimens in log * Drains none Electronically signed by: Rayo Anderson MD 11/16/2015 20:56 [facility] signed by Rayo Anderson MD a t 11/16/2015 8:57 PM PDTAssessment & Plan Note - Tejal Altamirano MD - 11/16/2015 2:40 PM PDTAssociated Problem(s): Closed right hip fracture, initial encounter ([facility])Acute traumatic injury, admission and care per orthopedist quality control inspector today. ssessment & Plan Poly - Tejal Altamirano MD - 016 2:40 PM PDTAssociated Problem(s): Rheumatoid arthritis (HCC)Appears chronic s/p evaluat ion by GI and heme/onc. Will need type and crossmatch. ssessment & Plan Poly - Tejal Altamirano MD - 11/16/2015 2:39 PM PDTAssociated Problem(s): S/P coronary artery stent placementMay need to hold ASA a nd Plavix due to planned orthopedic procedure. Stent was placed 07/09 at [facility] [place] Triage Notes - [...] [place] | | | | | | [address] | | | | | | | [...] (L) | 40.0 - 51.0 % | [facility] | | | | | [...] [address] | [place] | [phone] | | [facility] | | [address] | | | - LABORATORY | | [...] (H) | 7 - 18 mg/dL | [facility] | | | | | | [facility] | | | | | | MEDICAL | | | | | | CENTER - | | | | | | LABORATORY | | + + + + + + | Creatinine | 1.17 | 0.60 - 1.30 | [place] | | | | | mg/dL | [facility] | | | | | | MEDICAL | | | | | | CENTER - | | | | | | LABORATORY | | + + + + + + | eGFR if not | 60Comment: GLOMERULAR | >=60 | [place] | | | | FILTRATION | mL/min/1.73m2 | [facility] | | | [place] | RATE,ESTIMATED | | MEDICAL | | | | mL/min/1.28h5Xjcp than | | CENTER - | | [...] | [address] | [place] | [phone] | | [facility] | | [address] | | | - LABORATORY | | [...] + + + | UNIT # | [id number] | | [facility] | | | | [...] | Unit Status | Transfused | | [facility] | | | | | | [address] [...] St | [place] | | | [facility] | | [address] | | | - BLOOD BANK | [...] + + + | UNIT # | [id number] | | [facility] | | | | [...] [facility] | | | | | | [facility] | | | | | | MEDICAL | | | | | | CENTER - | | | | | | BLOOD BANK | | + + + + + + | CROSSMATCH | Compatible | | [facility] | | | INTERP | | | [facility] | | [...] St | [place] | | | [facility] | | [address] | | | - BLOOD BANK | [...] | + + + + + | [facility] | [address] | [place] | [phone] | | [facility] | | [address] | | | - LABORATORY | | | | + + + + + Vitamin B-12 (11/18/2015 5:28 PM PDT) + + + + + + | Component | Value | Ref Range | Performed | Pathologist | | | | | At | Signature | + + + + + + | VITAMIN | 818Comment: DEFICIENT: | 180 - 914 pg/mL | DRE | | | B-12 | <145 | | [facility] | | | | pg/mLINDETERMINATE: | | [...] [address] | [place] | [phone] | | [facility] | | [address] | | | - LABORATORY | | | | + + + + + Folate (11/18/2015 5:28 PM PDT) + +-------+ + + + | Component | Value | Ref Range | Performed | Pathologist | | | | | At | Signature | + +-------+ + + + | FOLATE | 17.3 | >5.8 ng/mL | DRE | | | | [...] [address] | [place] | [phone] | | [facility] | | [address] | | | - LABORATORY | | [...] (L) | 20.0 - 55.0 % | [facility] | | | SATURATION | | | [facility] | | [...] ST. | [address] | [place], [place] | [phone] | | [facility] | | [address] | | | - LABORATORY | | [...] | | LABORATORY | | | | Jn. | | | | + + + [...] ST. | [address] | [place] | [phone] | | [facility] | | [address] | | | - LABORATORY | | [...] | 1.22 | 0.60 - 1.30 | [facility] | | | | | mg/dL | [facility] | | | | | | MEDICAL | | | | | | CENTER - | | | | | | LABORATORY | | + + + + + + | eGFR if not | 57 (L)Comment: | >=60 | [place] | | | | GLOMERULAR FILTRATION | mL/min/1.73m2 | [facility] | | | [place] | RATE,ESTIMATED | | MEDICAL | | | | mL/min/1.15c5Kpis than | | CENTER - | | [...] | + + + + + | [facility] | [address] | [place] | [phone] | | [facility] | | [address] | | | - LABORATORY | | [...] + + + | UNIT # | [id number] | | DRE | | | | | [...] St | [place] | | | [facility] | | [address] | | | - BLOOD BANK | [...] + + + | UNIT # | [id number] | | [facility] | | | | [...] | | | INTERP | | | [facility] | | [...] St | [place] | | | [facility] | | [address] | | | - BLOOD BANK | [...] (L) | 40.0 - 51.0 % | [facility] | | | | | [...] [address] | [place] | [phone] | | [facility] | | [address] | | | - LABORATORY | | [...] (H) | 7 - 18 mg/dL | [facility] | | | | | | [facility] | | | | | | MEDICAL | | | | | | CENTER - | | | | | | LABORATORY | | + + + + + + | Creatinine | 1.15 | 0.60 - 1.30 | [facility] | | | | | mg/dL | [facility] | | | | | | MEDICAL | | | | | | CENTER - | | | | | | LABORATORY | | + + + + + + | eGFR if not | >60Comment: GLOMERULAR | >=60 | [facility] | | | | FILTRATION | mL/min/1.73m2 | [facility] | | | [place] | RATE,ESTIMATED | | MEDICAL | | | | mL/min/1.49b8Jbum than | | CENTER - | | [...] ST. | [address] | [place], [place] | [phone] | | [facility] | | [address] | | | - LABORATORY | | | | + + + + + [place] Peyman-Souleymane Statmaryam No Charge (11/16/2015 8:35 PM PDT) + [...] | Procedure Note | + + | Gurpreet Ferreira Results In - 11/17/2015 8:21 AM PDT XR HIP RIGHT 2-3 VIEWS. 11/16/2015 8:34 | | PMHISTORY: intra op.COMPARISON: 11/16/2015FINDINGS/IMPRESSION -Intraoperative | | fluoroscopic images demonstrate placement of right hiphemiarthroplasty prosthesis. | | Cannulated screws of the proximal left femur arealso partly visualized.Please see | | operative report for further information.Dictated and Signed by: Nitsih Graves MD | | Electronically signed: 11/17/2015 [...] + | ABO | O | | [facility] | | | | [...] | | Screen | | | [facility] | | [...] St | [place] | | | [facility] | | [address] | | | - BLOOD BANK | [...] (H) | 22 - 36 seconds | DRE | | | | | [...] [address] | [place] | [phone] | | [facility] | | [address] | | | - LABORATORY | | [...] | Time | | seconds | [facility] | | | | [...] [address] | [place] | [phone] | | [facility] | | [address] | | | - LABORATORY | | [...] | 1.21 | 0.60 - 1.30 | [facility] | | | | | mg/dL | [facility] | | | | | | MEDICAL | | | | | | CENTER - | | | | | | LABORATORY | | + + + + + + | eGFR if not | 57 (L)Comment: | >=60 | [facility] | | | | GLOMERULAR FILTRATION | mL/min/1.73m2 | [facility] | | | [place] | RATE,ESTIMATED | | MEDICAL | | | | mL/min/1.96c0Uurd than | | CENTER - | | [...] | 9.4 | 8.3 - 10.5 | [place] | | | | | mg/dL | [facility] | | | | | [...] [address] | [place] | [phone] | | [facility] | | [address] | | | - LABORATORY | | [...] | | | Cells | | | [facility] | | | | | | MEDICAL | | | | | | CENTER - | | | | | | LABORATORY | | + + + + + + | Red Blood | 2.61 (L) | 4.30 - 5.70 | [facility] | | | Cells | | M/uL | [facility] | | | | | [...] | | Lymphocytes | | | [facility] | | [...] + | [facility] | [address] | [place] | [phone] | | [facility] | | [address] | | | - LABORATORY | | [...] | | | | BRITTANI ALMONTE MD ([id number]) | | | | | | on [...] | Diagnosis | + + | Closed right hip fracture, initial encounter (HCC) - Primary | + + | Hip fracture, right, closed, initial encounter (HCC) | + + | Anemia, unspecified type | + + | Coronary artery disease involving [place] coronary artery of [place] heart without | | angina pectoris | + + | Low hemoglobin Anemia, unspecified | + + | S/P coronary artery stent placement Postsurgical percutaneous transluminal coronary | | angioplasty status | + + | CA prostate, adenoca [...] 16 10:36 | | | | | 6/24/16 at 0900 | | AM PDT | [...] | atorvaSTATin (LIPITOR) tablet | Given | 11/18/19 | 80 mg | | | | 80 mg 80 mg, Oral, NIGHTLY, | | 16 10:32 | | | | | First dose on [facility] 11/16/15 at 2215 | | PM PDT [...] +-------+---+---+ +---+---+ | | | +---+---+ + +---------+ +-----+-------+---+ | ceFAZolin (ANCEF, KEFZOL) 1 g | New Bag | 11/17/19 | 1 g | 100 | | | in sodium chloride 0.9% 50 mL | | 16 1:10 | | mL/hr | | | IVPB 1 g, Intravenous, | | PM PDT | | | | | Administer over 30 Minutes, EVERY | | | | | | | 6 HOURS (4 times per day), First | | | | | | | dose on Fri11/17/15 at 0000, For | | | | | | | 3 doses, Start 6 hours after | | | | | | | previous dose. Last dose to be | | | | | | | given within 24 hours of surgery | | | | | | | end time. Activate system and mix | | | | | | | before use., Post-op/Phase II, | | | | | | | Indications: Surgical Prophylaxis | | | | | | + +---------+ +-----+-------+---+ +---------+ +-----+-------+---+ | New Bag | 11/17/19 | 1 g | 100 | | | | 16 6:44 | | mL/hr | | | | AM PDT | | | | +---------+ +-----+-------+---+ | New Bag | 11/17/19 | 1 g | 100 | | | | 16 1:32 | | mL/hr | | | | AM PDT | | | | +---------+ +-----+-------+---+ +---+---+ | | | +---+---+ + +-------+ [...] | | +---+---+ + +-------+ +--------+---+---+ | HYDROmorphone (DILAUDID) | Given | 11/16/19 | 0.5 mg | | | | injection 0.5 mg 0.5 mg, | | 16 1:10 | | | | | Intravenous, ONCE, [facility] 11/16/15 at | | PM PDT | | | | | 1255, For 1 dose | | | | | | + +-------+ +--------+---+---+ +---+---+ | | | +---+---+ + +---------+ +--------+-------+---+ | iron sucrose (VENOFER) 200 mg | New Bag | 11/19/19 | 200 mg | 110 | | | in sodium chloride 0.9% 100 mL | | 16 10:35 | | mL/hr | | | IVPB 200 mg, Intravenous, | | AM PDT | | | | | Administer over 60 Minutes, ONCE, | | | | | | | 11/19/15 at 0915, For 1 dose | | | | | | + +---------+ +--------+-------+---+ +---+---+ | | | +---+---+ + +---------+ +---+-------+---+ | lactated ringers (LR) infusion | New Bag | 11/17/19 | | 100 | | | at 100 mL/hr, Intravenous, FIXED | | 16 12:52 | | mL/hr | | | VOLUME (see admin instruction), | | AM PDT | | | | | Starting [facility] 11/16/15 at 2215, | | | | | | | Saline lock IV when taking PO | | | | | | | well after 2 liters, | | | | | | | Post-op/Phase II | | | | | | + +---------+ +---+-------+---+ +---+---+ | | | +---+---+ + +-------+ +-------+---+---+ | metoclopramide (REGLAN) 5 mg/mL | Given | 11/16/19 | 10 mg | | | | injection 10 mg 10 mg, | | 16 9:18 | | | | | Intravenous, ONCE, [facility] 11/16/15 at | | PM PDT | | | | | 2045, For 1 dose, Protect from | | | | | | | light., Recovery/Phase I | | | | | | + +-------+ +-------+---+---+ +---+---+ | | | +---+---+ + +-------+ +------+---+---+ | ondansetron (ZOFRAN) injection | Given | 11/16/19 | 4 mg | | | | 4 mg 4 mg, Intravenous, ONCE, | | 16 1:08 | | | | | [facility] 11/16/15 at 1255, For 1 dose | | PM PDT | | | | + +-------+ +------+---+---+ +---+---+ | | | +---+---+ + +-------+ [...] +-------+---+---+ +---+---+ | | | +---+---+ + +---------+ +---+-------+---+ | sodium chloride 0.9% (NS) | New Bag | 11/16/19 | | 125 | | | infusion at 125 mL/hr, | | 16 1:15 | | mL/hr | | | Intravenous, CONTINUOUS, Starting | | PM PDT | | | | | [facility] 11/16/15 at 1255 | | | | | | + +---------+ +---+-------+---+ +---+---+ | | | +---+---+ documented in this encounter
--- OUTSIDE RECORDS SUMMARY | ~2019-12-09 | XMS | Encounter Summary ---
Demographics + + + | Address | [address] | | | [place] [address] | + + + | Home Phone | | + + + | Preferred Language | Unknown | + + + | Marital Status | | + + + | Lutheran Affiliation | 1041 | + + + [...] + | Lesia Castaneda | ECON | [address] | | | | | [place] [address] | | + + + + + | Rosina Castaneda | ECON | Unknown | | + + + + + | Sandy Zamora | ECON | [address] | | | | | [place] | | | | | [address] | | + + + + + Care Team Providers + +------+ + | Care Traffic Survey Technician Name | Role | Phone | + +------+ + PCP | Unavailable | + +------+ + Encounter Details +--------+ + + + + | Date | Type | Department | Care Team | Description | +--------+ + + + + | 02/26/ | Hospital | [facility] | | | | 2005 - | Encounter | [facility] | | | | | | CENTER [address] | | | | 03/25/ | | [place] | | | | 2005 | | [address] | | | | | | [phone] | | | +--------+ + + + [...] | | | | | [place], [place] | | | | | | [address] | | | | | | | | +--------+---------+ + + + documented as of this encounter Visit Diagnoses Not on filedocumented in this encounter"
--- OUTSIDE RECORDS SUMMARY | ~2019-12-09 | XMS | Encounter Summary ---
Demographics + + + | Address | [address] | | | [place] [address] | + + + | Home Phone | | + + + | Preferred Language | Unknown | + + + | Marital Status | | + + + | Buddhism Affiliation | 1041 | + + + | Race | Unknown | + + + | Ethnic Group | Unknown | + + + Author + + + | Author | [facility] | | | and [place] | + + + | Organization | [facility] | | | and [place] | + + + | Address | Unknown | + + + | Phone | Unavailable | + + + Support + + + + + | Name | Relationship | Address | Phone | + + + + + | Lesia Castaneda | ECON | [address] | | | | | [place] [address] | | + + + + + | Rosina Castaneda | ECON | Unknown | | + + + + + | Sandy Zamora | ECON | [address] | | | | | [place] | | | | | [address] | | + + + + + Care Team Providers + +------+ + | Care Criminal Legal Assistant Name | Role | Phone | + +------+ + | Jerome Ray | PCP | | | MD | | | + +------+ + Reason for Visit Auth/Cert +--------+--------+ + + + + | Status | Reason | Specialty | Diagnoses / | Referred By | Referred To | | | | | Procedures | Contact | Contact | +--------+--------+ + + + + | | | | Diagnoses | | Gryler, | | | | | 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 | | [place] | | | | | prosthetic | | [address] | | | | | joint, | | Phone: | | | | | initial | | [phone] | | | | | encounter | | Fax: | | | | | ([facility]) | | [phone] | | | | | Procedures | | | | | | | MS CONV PREV | | | | | | | HIP SURG TO | | | | | | | TOT HIP | | | | | | | ARTHROPLAS | | | | | | | Revision | | | | | | | right total | | | | | | | hip | | | | | | | arthroplasty | | | +--------+--------+ + + + + Encounter Details +--------+ + + + + | Date | Type | Department | Care Team | Description | +--------+ + + + + | 07/13/ | Anesthesia | [facility] | Sergio Alonso | | | 2019 | Event | [facility] OP | MD [place] [address] | | | | | [address] | [place] | | | | | [place] | [address] | | | | | [address] | | | | | | [phone] | | | +--------+ + + + + Anesthesia Record + + + + + | Procedure Name | Responsible | Anesthesia Start | Anesthesia Stop Time | | | Anesthesiologist | Time | | + + + + + | Revision right total | Sergio Sin Celeste, | 07/13/19 1421 | 07/13/19 1717 | | hip arthroplasty | MD | | | | (Right Hip) | | | | + + + + + +----+---+ + + | Da | T | Event | Comment | | te | i | | | | | m | | | | | e | | | +----+---+ + + | 02 | 1 | | | | /1 | 3 | | | | 8/ | 3 | | | | 20 | 1 | | | | 20 | | | | +----+---+ + + | | 1 | An Checkout | Pre-use anesthesia machine/equipment checkout. | | | 4 | | | | | 1 | | | | | 3 | | | +----+---+ + + | | 1 | An Start | | | | 4 | Data | | | | 1 | | | | | 5 | | | +----+---+ + + | | 1 | Antibiotic | | | | 4 | Given | | | | 1 | | | | | 6 | | | +----+---+ + + | | 1 | Pre-Procedu | | | | 4 | ral Timeout | | | | 1 | Completed | | | | 7 | | | +----+---+ + + | | 1 | Block Start | | | | 4 | | | | | 1 | | | | | 7 | | | +----+---+ + + | | 1 | AN Block | | | | 4 | End | | | | 2 | | | | | 0 | | | +----+---+ + + | | 1 | An Start | Reassessment prior to anesthesia induction/procedure. | | | 4 | | | | | 2 | | | | | 1 | | | +----+---+ + + | | 1 | Preoxygenat | | | | 4 | ed | | | | 2 | | | | | 4 | | | +----+---+ + + | | 1 | An | | | | 4 | Induction | | | | 2 | | | | | 5 | | | +----+---+ + + | | 1 | An | | | | 4 | Intubation | | | | 2 | | | | | 6 | | | +----+---+ + + | | 1 | AN Bite | | | | 4 | Block | | | | 2 | | | | | 7 | | | +----+---+ + + | | 1 | [place] | | | | 4 | 43-degrees | | | | 4 | | | | | 9 | | | +----+---+ + + | | 1 | First | | | | 4 | Inc/Proc St | | | | 5 | | | | | 6 | | | +----+---+ + + | | 1 | [place] off | | | | 7 | | | | | 1 | | | | | 1 | | | +----+---+ + + | | 1 | AN No | TOF 4/4 with sustained tetanus. | | | 7 | Residual | | | | 1 | NMB | | | | 1 | | | +----+---+ + + | | 1 | Breathing | | | | 7 | Spontaneous | | | | 1 | ly | | | | 1 | | | +----+---+ + + | | 1 | Extubation/ | | | | 7 | Airway LDA | | | | 1 | Removal | | | | 1 | | | +----+---+ + + | | 1 | An Stop | Patient handed off to recovery nurse. | | | 1 | | | | | 7 | | | +----+---+ + + +------+ | Meds | +------+ + + + | Name | Total | + + + | fentaNYL | 100 mcg | + + + | lidocaine 2% | 60 mg | + + + | propofol | 150 mg | + + + | propofol | 592.68 mg | + + + | rocuronium | 30 mg | + + + | dexamethasone (PF) injection 10 | 6 mg | | mg/mL | | + + + | ondansetron | 4 mg | + + + | Phenylephrine 100mcg/mL SYRINGE | 1,000 mcg | + + + | bupivacaine 0.75% (Intrathecal) | 1 mL | + + + | morphine (Intrathecal) | 250 mcg | + + + | ceFAZolin (ANCEF, KEFZOL) 2 g in | 2 g | | sterile water 20 mL syringe (100 | | | mg/mL) | | + + + | ePHEDrine (AKOVAZ) injection 50 | 60 mg | | mg/mL | | + + + | tranexamic acid | 2,000 mg | + + + | lactated ringers (LR) infusion | 2,000 mL | + + + + + | Name | + + | N2O Flow Rate (L/Min) | + + | O2 Flow Rate (L/Min) | + + | Insp O2 | + + | Exp SEV | + + | Air Flow Rate (L/Min) | + + + + | No blood administrations on file. | + + +--------+ + + + | Type | Details | Placement | Removal | +--------+ + + + | Periph | 07/13/19; 1255; Left; Wrist; | 07/13/19 1255 by | | | eral | [id number] catheter system; | Laurenec Contreras, | | | IV | 18 gauge, 1 1/4 in length; Blood | RN | | | | Bank; intradermal injection, | | | | | tolerated well | | | +--------+ + + + | Wound | 07/13/19; 1524 (During surgery); | 07/13/19 1524 by | | | | N; Other (surgical incision); | Majo Walden, | | | | Right; lateral; hip | RN | | +--------+ + + + | Airway | Placement Date: 07/13/19; | 07/13/19 142 by | 07/13/19 171 by | | | Placement Time: 1425 (created via | Sergio Alonso, | Sergio Alonso, | | | procedure documentation); Mask | MD | MD | | | Ventilation: EZ; Airway Grade: 1; | | | | | Successful Technique: Mac; | | | | | Laryngoscope Blade Size: 3; | | | | | Attempts: 1; Airway Type: | | | | | endotracheal; Size: 6.5; Airway | | | | | Tube Secured At: 22; Trauma: | | | | | none; Other Equipment: stylette; | | | | | Placement Check: exhaled CO2 | | | | | detection device, bilateral chest | | | | | rise, breath sounds equal | | | | | bilaterally; Removal Date: | | | | | 07/13/19; Removal Time: 1710; | | | | | Additional Comments: Head | | | | | initially in neurtral Position. | | | | | Smooth IV induction, mask airway | | | | | established. Direct | | | | | Laryngoscopy, ETT placed under | | | | | direct vision. BSEB/ETCO2 | | | | | (auscultation and capnography) to | | | | | confirm placement. Depth noted. | | | | | Ventilator on. | | | +--------+ + + + documented in this encounter Social History + + + +--------+ + [...] + + documented as of this encounter OR Notes Anesthesia Postprocedure Evaluation - Sergio Alonso MD - 07/13/2019 7:36 PM PSTForma tting of this note might be different from the original. ANESTHESIA POSTANESTHESIA EVALUATION Demond Castaneda 88 y.o. male 1930 [id number] Procedure(s) Revision right total hip arthroplasty (Right Hip) Cooperates? Yes Mental Status Performs simple tasks. Respiratory Satisfactory - Airway patent (self maintained). Cardiovascular Satisfactory - Blood pressure and heart rate acceptable Temperature Satisfactory Pain Satisfactory N/V Control Satisfactory Hydration Satisfactory - No signs of dehydration Adverse Events ADVERSE EVENTS: No adverse events Vitals Value Taken Time Temp 35.5 C (95.9 F) 07/13/2019 6:29 PM Pulse 74 07/13/2019 6:29 PM Resp 18 07/13/2019 6:29 PM BP 130/70 07/13/2019 6:29 PM Arterial Line BP Arterial Line BP 2 SpO2 99 % 07/13/2019 6:29 PM Electronically signed by Sergio Alonso MD 07/13/2019 7:36 PM [facility] S[facility] Al[facility] MD at 0 07/13/2019 7:37 PM PSTAnesthesia Procedure Notes - Sergio Alonso MD - 07/13/2019 2:40 PM PSTAssociated Order(s): NeuraxialNeuraxial Procedure Note 07/13/2019 2:20 PM Procedure: single-shot spinal anesthesia Provider requested procedure: Dr. Maxi Zamora MD Indication: postoperative analgesia Preprocedure check: patient identified, procedure and rescue equipment checked, risks/benef its discussed, preevaluation including airway assessment complete, consent obtained, timeout performed, monitors applied and reassessment prior to procedure Patient position: sitting Preparation: chlorhexidine/isopropyl alcohol, drape, 1% lidocaine infiltration, Local anesthetic infiltration volume: 3 mL Procedure level: L3-4 Needle size: 25 g Needle length: 3.5 in Medication administered through: needle Negative findings: no blood aspirated and no paresthesia Positive findings: CSF aspirated Attempts: 1 Ease of procedure: easy Performing provider: Sergio Alonso MD Authorizing provider: Sergio Alonso MD Comments: Risks and benefits of intrathecal narcotics discussed with patient. The patient agrees to proceed answered all questions. The block is being done for post op pain control at the request of the patient and the surgeon. The patient was brought to the operating ro om and monitors were applied. The patient was sedated and placed in the sitting position. The L3-4 area was identified and the site marked. A time out was taken. The area prepped w ith chlorhexidine for 30 seconds. The area was then draped in the usual sterile fashion. U tilizing a 25 ga needle, 3 cc of 1% lidocaine was used to anesthetize the skin and sub-Q are a. Using a 20 ga introducer, a 25 ga Tomas needle was used and after one positioning, th e intrathecal space was entered. No heme or paresthesias were noted. See the anesthesia rec ord for medications used and amounts given. The patient tolerated the procedure well, no co mplication was noted. [id number] [facility] [id number] Lot: [id number] 23 Feb 2021 F Please see anesthesia record or flowsheet for vital sign documentation and see anesthesia r ecord or MAR for additional medication documentation. nesthesia Procedu re Notes - Sergio Alonso MD - 07/13/2019 2:40 PM PSTAssociated Order(s): AirwayAnesth esia Airway Placement 07/13/2019 2:26 PM Preprocedure check: patient identified, oxygen, airway assessed, patient reassessment prior to induction, airway equipment checked and suction Rapid Sequence Induction: no Mask ventilation: easy Successful technique: Mac Laryngoscope blade size: 3 Airway grade: 1 (Full view of glottis) Other equipment: stylette Attempts: 1 Airway type: endotracheal Size: 6.5 Cuffed: cuffed Route, reference point: right side of mouth Tube depth: 22 cm Tube secured with: adhesive tape Trauma: none Tube placement verification: carbon dioxide detection, equal bilateral breath sounds and bi lateral chest rise Performing provider: Sergio Alonso MD Authorizing provider: Sergio Alonso MD Comments: Head initially in neurtral Position. Smooth IV induction, mask airway established. Direct Laryngoscopy, ETT placed under direct vision. BSEB/ETCO2 (auscultation and capnogra phy) to confirm placement. Depth noted. Ventilator on. Please see intraoperative grid for any additional medication documentation. nesthesia Preproc edure Evaluation - Sergio Alonso MD - 07/12/2019 7:37 PM PSTFormatting of this note m ight be different from the original. ANESTHESIA PREANESTHESIA EVALUATION Demond Castaneda 88 y.o. male 1930 [id number] Procedure(s): Revision right total hip arthroplasty (Right Hip) Medical,anesthesia, drug, allergy histories reviewed, NPO status verified. Labs reviewed. Review of Systems / Med History Anesthesia History (+) previous surgery or anesthesia.(-) PONV, failed moderate sedation. Cardiovascular Exercise tolerance <4 METS (+) coronary artery disease. (+) past myocardial infarction occured more than 28 days prior to admission. (+) PVD: , right carotid stenosis, left carotid stenosis . Pulmonary (+) shortness of breath.(+) tobacco use.(+) ex-smoker: 1966. Gastrointestinal/Hepatic Negative except where noted below. Hematology/Other (+) anemia. Cancer (+) prostate cancer. Neuromuscular (+) arthritis, CVA. Physical Exam Airway MP II, TM >3 FB, Mouth opening >2 FB. Neck: full ROM, extends >30 degrees. Jaw protrus ion normal. Dental grossly normal except where noted below. (+) age appropriate dentition. CV Rhythm regular. Rate Normal. (-) murmur, carotid bruit, peripheral edema, JVD and weak pulses. Pulm Clear to auscultation bilaterally. (-) wheezing, rhonchi, decreased breath sounds, rales a nd stridor. Neuro grossly normal. Anesthesia Plan ASA: 3 Type: General. Induction: Intravenous. Potential problems: None anticipated. Monitors: Standard ASA monitors. Postop Pain Management: Spinal. Consent statement: Anesthetic plan, alternatives, risks and benefits discussed with patient and family. discus sed risks to teeth, disability, heart problems, ICU placement, muscle aches, nausea, periope rative CV events, respiratory events, sore throat, voice injury, delirium, dural tap, post d ural puncture headache, high spinal Consenting person understands and agrees to proceed. PARQ. Risks and benefits of general anesthetic plus ITN for post op pain control discussed with p atient and available family members. They agree to proceed, answered all questions. Past Medical History: No date: Actinic keratosis No date: Anemia No date: Basal cell carcinoma of skin No date: CAD (coronary artery disease) No date: Carotid stenosis No date: CVA (cerebral vascular accident) ([facility]) No date: Eczema No date: Femur fracture, left ([facility]) No date: Fx eight/more rib-closed No date: H/O: facial fractures No date: Hearing loss Comment: wears hearing aids 2015: [place] (myocardial infarction) ([facility]) No date: Osteoarthritis No date: Pes planus No date: Prostate cancer ([facility]) Comment: prostate No date: Wears dentures Comment: full upper. Electronically Signed by: Sergio Alonso MD [facility] date/time: 07/13/2019 1:30 PM documented in this encounter Miscellaneous Notes Anesthesia Post-op Handoff - Sergio Alonso MD - 07/13/2019 5:16 PM PST ANESTHESIA HANDOFF NOTE Demond Castaneda 88 y.o. male 1930 [id number] Revision right total hip arthroplasty (Right Hip) HANDOFF NOTE Handoff Protocol Used: post-procedure handoff checklist completed The following were completed during the transfer of care: 1. Identification of patient 2. Identification of responsible practitioner (primary service) 3. Discussion of pertinent medical history 4. Discussion of the surgical/procedure course (procedure, reason for surgery, procedure pe rformed) 5. Intraoperative anesthetic management and issues/concerns 6. Expectations/plans for the early post-procedure period 7. Opportunity for questions and acknowledgement of understanding of report from receiving team Patient Location: Phase I Condition: sedated Airway/O2: other (see comments) Multimodal analgesia: multimodal analgesia used between 6 hours prior to anesthesia start t o PACU discharge Comments: Supplemental Oxygen used as necessary to maintain Oxygen Saturation at or above 9 2% The significant anesthesia concerns and VS in Epic were reviewed with the receiving team. Sergio Alonso MD 07/13/2019 5:16 PM [facility] Sergio Alonso MD at 0 07/13/2019 5:16 PM PSTdocumented in this encounter Plan of Treatment +--------+---------+ + + + | Date | Type | Specialty | Care Team | Description | +--------+---------+ + + + | 02/01/ | Office | Cardiology | Jazlyn Almeida, | | | 2019 | Visit | | MD Vikram RICARDO | | | | | | [place] | | | | | | [id number] | | | | | | | | +--------+---------+ + + + documented as of this encounter Procedures + +--------+ + + + | Procedure Name | Priori | Date/Time | Associated Diagnosis | Comments | | | ty | | | | + +--------+ + + + | ANE WALTER NOTE | Routin | 07/13/2019 | | Results for this | | | e | 2:40 PM | | procedure are in the | | | | PST | | results section. | + +--------+ + + + | ANE SAVANNA NOTE | Routin | 07/13/2019 | | Results for this | | | e | 2:40 PM | | procedure are in the | | | | PST | | results section. | + +--------+ + + + documented in this encounter Results Neuraxial (07/13/2019 2:40 PM PST) + + + | Narrative | Performed At | + + + | Sergio Alonso MD 07/13/2019 2:42 PM Neuraxial Procedure | | | Note 07/13/2019 2:20 PM Procedure: single-shot spinal anesthesia | | | Provider requested procedure: Dr. Maxi Zamora MD Indication: | | | postoperative analgesia Preprocedure check: patient identified, | | | procedure and rescue equipment checked, risks/benefits discussed, | | | preevaluation including airway assessment complete, consent | | | obtained, timeout performed, monitors applied and reassessment prior | | | to procedure Patient position: sitting Preparation: | | | chlorhexidine/isopropyl alcohol, drape, 1% lidocaine infiltration, | | | Local anesthetic infiltration volume: 3 mL Procedure level: L3-4 | | | Needle size: 25 g Needle length: 3.5 in Medication administered | | | through: needle Negative findings: no blood aspirated and no | | | paresthesia Positive findings: CSF aspirated Attempts: 1 Ease of | | | procedure: easy Performing provider: Sergio Alonso MD | | | Authorizing provider: Sergio Alonso MD Comments: Risks and | | | benefits of intrathecal narcotics discussed with patient. The | | | patient agrees to proceed answered all questions. The block is | | | being done for post op pain control at the request of the patient and | | | the surgeon. The patient was brought to the operating room and | | | monitors were applied. The patient was sedated and placed in the | | | sitting position. The L3-4 area was identified and the site marked. | | | A time out was taken. The area prepped with chlorhexidine for | | | 30 seconds. The area was then draped in the usual sterile fashion. | | | Utilizing a 25 ga needle, 3 cc of 1% lidocaine was used to | | | anesthetize the skin and sub-Q area. Using a 20 ga introducer, a | | | 25 ga Tomas needle was used and after one positioning, the | | | intrathecal space was entered. No heme or paresthesias were noted. | | | See the anesthesia record for medications used and amounts given. | | | The patient tolerated the procedure well, no complication was | | | noted. [id number] [facility] [id number] Lot: [id number] 23 Feb 2021 | | | F Please see anesthesia record or flowsheet for vital | | | sign documentation and see anesthesia record or MAR for additional | | | medication documentation. | | + + + Airway (07/13/2019 2:40 PM PST) + + + | Narrative | Performed At | + + + | Sergio Alonso MD 07/13/2019 2:40 PM Anesthesia Airway | | | Placement 07/13/2019 2:26 PM Preprocedure check: patient | | | identified, oxygen, airway assessed, patient reassessment prior to | | | induction, airway equipment checked and suction Rapid Sequence | | | Induction: no Mask ventilation: easy Successful technique: Mac | | | Laryngoscope blade size: 3 Airway grade: 1 (Full view of glottis) | | | Other equipment: stylette Attempts: 1 Airway type: endotracheal | | | Size: 6.5 Cuffed: cuffed Route, reference point: right side of mouth | | | Tube depth: 22 cm Tube secured with: adhesive tape Trauma: none | | | Tube placement verification: carbon dioxide detection, equal bilateral | | | breath sounds and bilateral chest rise Performing provider: | | | Sergio Alonso MD Authorizing provider: Sergio Alonso MD | | | Comments: Head initially in neurtral Position. Smooth IV | | | induction, mask airway established. Direct Laryngoscopy, ETT | | | placed under direct vision. BSEB/ETCO2 (auscultation and | | | capnography) to confirm placement. Depth noted. Ventilator on. | | | Please see intraoperative grid for any additional medication | | | documentation. | | + + + documented in this encounter Visit Diagnoses Not on filedocumented in this encounter Administered Medications + +--------+ +------+------+------+ | Medication Order | MAR | Action | Dose | Rate | Site | | | Action | Date | | | | + +--------+ +------+------+------+ | bupivacaine 0.75%-dextrose | Given | 07/13/19 | 1 mL | | | | 8.25% (MARCAINE SPINAL) injection | | 20 2:19 | | | | | INTRATHECAL, PRN, Starting Tue | | PM PST | | | | | 07/13/19 at 1419, Anesthesia | | | | | | | Intra-op | | | | | | + +--------+ +------+------+------+ +---+---+ | | | +---+---+ + +---------+ +-----+---+---+ | ceFAZolin (ANCEF, KEFZOL) 2 g | New Bag | 07/13/19 | 2 g | | | | in sterile water 20 mL syringe | | 20 2:21 | | | | | (100 mg/mL) 2 g, Intravenous, | | PM PST | | | | | Prior to Incision, Starting Tue | | | | | | | 07/13/19 at 1424, For 1 dose, Keep | | | | | | | in refrigerator. Give IV push | | | | | | | over 3-5 minutes., Pre-op, | | | | | | | Indications: Surgical Prophylaxis | | | | | | + +---------+ +-----+---+---+ +---+---+ | | | +---+---+ + +-------+ +------+---+---+ | dexamethasone (PF) 10 mg/mL | Given | 07/13/19 | 6 mg | | | | injection PRN, Starting Tue | | 20 2:25 | | | | | 07/13/19 at 1425, Anesthesia | | PM PST | | | | | Intra-op | | | | | | + +-------+ +------+---+---+ +---+---+ | | | +---+---+ + +-------+ +-------+---+---+ | ePHEDrine (AKOVAZ) 50 mg/mL | Given | 07/13/19 | 10 mg | | | | injection Intravenous, PRN, | | 20 4:03 | | | | | Starting 07/13/19 at 1436, | | PM PST | | | | | Anesthesia Intra-op | | | | | | + +-------+ +-------+---+---+ +-------+ +-------+---+---+ | Given | 07/13/19 | 10 mg | | | | | 20 3:54 | | | | | | PM PST | | | | +-------+ +-------+---+---+ | Given | 07/13/19 | 10 mg | | | | | 20 3:34 | | | | | | PM PST | | | | +-------+ +-------+---+---+ +---+---+ | | | +---+---+ + +-------+ +--------+---+---+ | fentaNYL (PF) injection | Given | 07/13/19 | 25 mcg | | | | Intravenous, PRN, Starting Tue | | 20 4:57 | | | | | 07/13/19 at 1415, Anesthesia | | PM PST | | | | | Intra-op | | | | | | + +-------+ +--------+---+---+ +-------+ +--------+---+---+ | Given | 07/13/19 | 25 mcg | | | | | 20 4:47 | | | | | | PM PST | | | | +-------+ +--------+---+---+ | Given | 07/13/19 | 50 mcg | | | | | 20 2:15 | | | | | | PM PST | | | | +-------+ +--------+---+---+ +---+---+ | | | +---+---+ + +---------+ +---+---+---+ | lactated ringers (LR) infusion | New Bag | 07/13/19 | | | | | at 10-100 mL/hr, Intravenous, | | 20 4:53 | | | | | CONTINUOUS, Starting 07/13/19 | | PM PST | | | | | at 1230, 600 ml bolus then TKO, | | | | | | | Pre-op | | | | | | + +---------+ +---+---+---+ +---------+ +---+-------+---+ | New Bag | 07/13/19 | | | | | | 20 2:42 | | | | | | PM PST | | | | +---------+ +---+-------+---+ | New Bag | 07/13/19 | | 100 | | | | 20 12:55 | | mL/hr | | | | PM PST | | | | +---------+ +---+-------+---+ +---+---+ | | | +---+---+ + +-------+ +-------+---+---+ | lidocaine (PF) 2% injection | Given | 07/13/19 | 60 mg | | | | Intravenous, PRN, Starting Tue | | 20 2:27 | | | | | 07/13/19 at 1427, Anesthesia | | PM PST | | | | | Intra-op | | | | | | + +-------+ +-------+---+---+ +---+---+ | | | +---+---+ + +-------+ +---------+---+---+ | morphine (PF) (DURAMORPH) 0.5 | Given | 07/13/19 | 250 mcg | | | | mg/mL injection INTRATHECAL, | | 20 2:19 | | | | | PRN, Starting 07/13/19 at | | PM PST | | | | | 1419, Anesthesia Intra-op | | | | | | + +-------+ +---------+---+---+ +---+---+ | | | +---+---+ + +-------+ +------+---+---+ | ondansetron (ZOFRAN) injection | Given | 07/13/19 | 4 mg | | | | Intravenous, PRN, Starting Tue | | 20 2:25 | | | | | 07/13/19 at 1425, Anesthesia | | PM PST | | | | | Intra-op | | | | | | + +-------+ +------+---+---+ +---+---+ | | | +---+---+ + +-------+ +---------+---+---+ | phenylephrine (KENJI-SYNEPHRINE) | Given | 07/13/19 | 100 mcg | | | | 100 mcg/mL injection | | 20 4:48 | | | | | Intravenous, PRN, Starting Tue | | PM PST | | | | | 07/13/19 at 1433, Anesthesia | | | | | | | Intra-op | | | | | | + +-------+ +---------+---+---+ +-------+ +---------+---+---+ | Given | 07/13/19 | 100 mcg | | | | | 20 4:16 | | | | | | PM PST | | | | +-------+ +---------+---+---+ | Given | 07/13/19 | 100 mcg | | | | | 20 4:08 | | | | | | PM PST | | | | +-------+ +---------+---+---+ +---+---+ | | | +---+---+ + +-------+ +--------+---+---+ | propofol (DIPRIVAN) injection | Given | 07/13/19 | 150 mg | | | | Intravenous, PRN, Starting Tue | | 20 2:25 | | | | | 07/13/19 at 1425, Anesthesia | | PM PST | | | | | Intra-op | | | | | | + +-------+ +--------+---+---+ +---+---+ | | | +---+---+ + +---------+ + +-------+---+ | propofol (DIPRIVAN) injection | New Bag | 07/13/19 | 50 | 23.6 | | | Intravenous, CONTINUOUS PRN, | | 20 2:36 | mcg/kg/m | mL/hr | | | Starting 07/13/19 at 1436, | | PM PST | in | | | | Anesthesia Intra-op | | | | | | + +---------+ + +-------+---+ +---+---+ | | | +---+---+ + +-------+ +-------+---+---+ | rocuronium (ZEMURON) injection | Given | 07/13/19 | 30 mg | | | | Intravenous, PRN, Starting Fri | | 20 2:27 | | | | | 07/13/19 at 1427, Anesthesia | | PM PST | | | | | Intra-op | | | | | | + +-------+ +-------+---+---+ +---+---+ | | | +---+---+ + +-------+ + +---+---+ | tranexamic acid (CYKLOKAPRON) | Given | 07/13/19 | 1,000 mg | | | | injection Intravenous, | | 20 4:45 | | | | | Administer over 15 Minutes, EMELINA, | | PM PST | | | | | Starting 07/13/19 at 1429, | | | | | | | Anesthesia Intra-op | | | | | | + +-------+ + +---+---+ +-------+ + +---+---+ | Given | 07/13/19 | 1,000 mg | | | | | 20 2:29 | | | | | | PM PST | | | | +-------+ + +---+---+ +---+---+ | | | +---+---+ documented in this encounter"
--- OUTSIDE RECORDS SUMMARY | ~2019-12-09 | XMS | Encounter Summary ---
Demographics + + + | Address | [address] | | | [place] [address] | + + + | Home Phone | | + + + | Preferred Language | Unknown | + + + | Marital Status | | + + + | Restoration Affiliation | 1041 | + + + | Race | Unknown | + + + | Ethnic Group | Unknown | + + + Author + + + | Author | [facility] | | | and [place] | + + + | Organization | [facility] | | | and [place] | + + + | Address | Unknown | + + + | Phone | Unavailable | + + + Support + + + + + | Name | Relationship | Address | Phone | + + + + + | Lesia Castaneda | ECON | [address] | | | | | [place] [address] | | + + + + + | Rosina Castaneda | ECON | Unknown | | + + + + + | Sandy Zamora | ECON | [address] | | | | | [place] | | | | | [address] | | + + + + + Care Team Providers + +------+ + | Care Television News Anchor Name | Role | Phone | + +------+ + | Jerome Ray | PCP | | | MD | | | + +------+ + Encounter Details +--------+ + + + + | Date | Type | Department | Care Team | Description | +--------+ + + + + | 07/17/ | Home Care | [facility] | Marla Crawford RN | CASE COMMUNICATION | | 2020 | Visit | [facility] [address] | | | | | | [facility] [place] | | | | | | [address] | | | | | | [phone] | | | +--------+ + + + [...] [place] | | | | | | [address] | | | | | | | | +--------+---------+ + + + documented as of this encounter Visit Diagnoses Not on filedocumented in this encounter"
--- OUTSIDE RECORDS SUMMARY | ~2019-12-09 | XMS | Encounter Summary ---
Demographics + + + | Address | [address] | | | [place] [address] | + + + | Home Phone | | + + + | Preferred Language | Unknown | + + + | Marital Status | | + + + | Taoist Affiliation | 1041 | + + + | Race | Unknown | + + + | Ethnic Group | Unknown | + + + Author + + + | Author | [facility] | | | and [place] | + + + | Organization | [facility] | | | and [place] | + + + | Address | Unknown | + + + | Phone | Unavailable | + + + Support + + + + + | Name | Relationship | Address | Phone | + + + + + | Lesia Castaneda | ECON | [address] | | | | | [place] [address] | | + + + + + | Rosina Castaneda | ECON | Unknown | | + + + + + | Sandy Zamora | ECON | [address] | | | | | [place] | | | | | [address] | | + + + + + Care Team Providers + +------+ + | Care Tornado Chaser Name | Role | Phone | + +------+ + | Sergio Thompson MD | PCP | | + +------+ + Encounter Details +--------+ + + + + | Date | Type | Department | Care Team | Description | +--------+ + + + + | 07/24/ | Orders Only | [facility] | Demond More MD | Iron deficiency | | 2016 | | GASTROENTEROLOGY | [address] | anemia due to | | | | [address] | [address] [place] | chronic blood loss; | | | | [address] [place], [place] | [address] | Dysphasia | | | | [address] | | | | | | [phone] | | | +--------+ + + + [...] RICARDO | | | | | | [place] | | | | | | [address] | | | | | | | | +--------+---------+ + + + documented as of this encounter Visit Diagnoses + + | Diagnosis | + + | Iron deficiency anemia due to chronic blood loss Iron deficiency anemia secondary to | | blood loss (chronic) | + + | Dysphasia Other speech disturbance | + + documented in this encounter"
--- OUTSIDE RECORDS SUMMARY | ~2019-12-09 | XMS | Encounter Summary ---
Demographics + + + | Address | [address] | | | [place] [address] | + + + | Home Phone | | + + + | Preferred Language | Unknown | + + + | Marital Status | | + + + | Latter-Day Affiliation | 1041 | + + + [...] + + + + + | Lesia Castandea | ECON | [address] | | | | | [place] [address] | | + + + + + | Rosina Castaneda | ECON | Unknown | | + + + + + | Sandy Zamora | ECON | [address] | | | | | [place] | | | | | [address] | | + + + + + Care Team Providers + +------+ + | Care Bag Making Machine Tender Name | Role | Phone | + +------+ + PCP | Unavailable | + +------+ + Encounter Details +--------+ + + + + | Date | Type | Department | Care Team | Description | +--------+ + + + + | 07/12/ | Hospital | [facility] | | | | 2004 - | Encounter | MED CTR GENERIC OP | | | | | | CONV DEPT [address] | | | | 10/10/ | | [place], | | | | 2004 | | [place] [address] | | | | | | [phone] | | | +--------+ + + + [...] | | | | | [place], [place] | | | | | | [address] | | | | | | | | +--------+---------+ + + + documented as of this encounter Visit Diagnoses Not on filedocumented in this encounter"
--- OUTSIDE RECORDS SUMMARY | ~2019-12-09 | XMS | Encounter Summary ---
Demographics + + + | Address | [address] | | | [place] [address] | + + + | Home Phone | | + + + | Preferred Language | Unknown | + + + | Marital Status | | + + + | Confucianism Affiliation | 1041 | + + + | Race | Unknown | + + + | Ethnic Group | Unknown | + + + Author + + + | Author | [facility] | | | and [place] | + + + | Organization | [facility] | | | and [place] | + + + | Address | Unknown | + + + | Phone | Unavailable | + + + Support + + + + + | Name | Relationship | Address | Phone | + + + + + | Lesia Castaneda | ECON | [address] | | | | | [place] [address] | | + + + + + | Rosina Castaneda | ECON | Unknown | | + + + + + | Sandy Zamora | ECON | [address] | | | | [place] | | | | | [address] | | + + + + + Care Team Providers + +------+ + | Care Grocery Store Associate Name | Role | Phone | + +------+ + | Sergio Thompson MD | PCP | | + +------+ + Reason for Visit +---------+--------+ + | Reason | Onset | Comments | | | Date | | +---------+--------+ + | Results | 08/07/ | egd,colon | | | 2015 | | +---------+--------+ + Encounter Details +--------+ + + + + | Date | Type | Department | Care Team | Description | +--------+ + + + + | 08/07/ | Telephone | [facility] | Demond More MD | Results (egd,colon) | | 2015 | | GASTROENTEROLOGY | [address] | | | | | [address] | [address] [place] | | | | | [address] [place], [place] | [address] | | | | | [address] | | | | | | [phone] | | | +--------+ + + + [...] this encounter Miscellaneous Notes Telephone Encounter - Jeannie Davis RN - 08/08/2015 10:07 AM PDTNotified patient th at [facility] Pylori biopsy from stomach was negative. Dr More recommends Pillcam to evaluate for b leeding site in the small bowel. Patient states he has been anemic for 40 yrs. Discussed Pillcam and he states he has a lot of trouble swallowing. Patient not enthused to schedule a nother study. He stopped the iron tablets due to constipation. He states his stools are no t dark now. He is scheduled for a bone marrow biopsy through Dr. Castellon. He states he wi ll think about it and call our office if he decides to have this study. Will update Dr Scarlett luque on Dr Castellon's work up in progress. documented in th is encounter Plan of Treatment +--------+---------+ + + + | Date | Type | Specialty | Care Team | Description | +--------+---------+ + + + | 02/01/ | Office | Cardiology | Jazlyn Almeida, | | | 2019 | Visit | | MD Vikram [address]ICAR[address] | | | | | | [place] | | | | | | [address] | | | | | | | | +--------+---------+ + + + documented as of this encounter Visit Diagnoses Not on filedocumented in this encounter"
--- OUTSIDE RECORDS SUMMARY | ~2019-12-09 | XMS | Encounter Summary ---
Demographics + + + | Address | [address] | | | [place] [address] | + + + | Home Phone | | + + + | Preferred Language | Unknown | + + + | Marital Status | | + + + | Mandaen Affiliation | 1041 | + + + | Race | Unknown | + + + | Ethnic Group | Unknown | + + + Author + + + | Author | [facility] | | | and [place] | + + + | Organization | [facility] | | | and [place] | + + + | Address | Unknown | + + + | Phone | Unavailable | + + + Support + + + + + | Name | Relationship | Address | Phone | + + + + + | Lesia Castaneda | ECON | [address] | | | | | [place] [address] | | + + + + + | Rosina Castaneda | ECON | Unknown | | + + + + + | Sandy Zamora | ECON | [address] | | | | [place] | | | | | [address] | | + + + + + Care Team Providers + +------+ + | Care Digital Experience Manager Name | Role | Phone | + +------+ + | Jerome Ray | PCP | | | MD | | | + +------+ + Encounter Details +--------+ + + + + | Date | Type | Department | Care Team | Description | +--------+ + + + + | 04/08/ | Hospital | [facility] | Chaitanya Samuel, | | | 2011 - | Encounter | MED CTR CANCER | [address] | | | | | [address] | [place] | | | 04/24/ | | [place] | [id number] | | | 2011 | | [address] | [phone] | | | | | [phone] | | | +--------+ + + + [...] [place] | | | | | | [address] | | | | | | | | +--------+---------+ + + + documented as of this encounter Procedures + +--------+ + + + | Procedure Name | Priori | Date/Time | Associated Diagnosis | Comments | | | ty | | | | + +--------+ + + + | PSA, DIAGNOSTIC | Routin | 04/08/2012 | | Results for this | | | e | 8:43 AM | | procedure are in the | | | | PST | | results section. | + +--------+ + + + documented in this encounter Results PSA, Diagnostic (04/08/2012 8:43 AM PST) + + + + + + | Component | Value | Ref Range | Performed | Pathologist | | | | | At | Signature | + + + + + + | PSA, Total | 1.03Comment: After | 0.00 - 4.00 | [facility] [...] Tiffanie | | | | | | [place] [facility] | | | | | | Analyzer. | | | | + + + + + + + + | Specimen | + + | | + + + + + + + | Performing | Address | City/State/Zipcode | Phone Number | | Organization | | | | + + + + + | [facility] | [address] | [place] | [phone] | | [facility] | | [address] | | | - LABORATORY | | | | + + + + + | [facility] | [address] | [place] | | | [facility] | | [id number] [place] [address] | | | - LABORATORY | | | | + + + + + documented in this encounter Visit Diagnoses Not on filedocumented in this encounter"
--- OUTSIDE RECORDS SUMMARY | ~2019-12-09 | XMS | Encounter Summary ---
Demographics + + + | Address | [address] | | | [place] [address] | + + + | Home Phone | | + + + | Preferred Language | Unknown | + + + | Marital Status | | + + + | Orthodox Affiliation | 1041 | + + + | Race | Unknown | + + + | Ethnic Group | Unknown | + + + Author + + + | Author | [facility] | | | and [place] | + + + | Organization | [facility] | | | and [place] | + + + | Address | Unknown | + + + | Phone | Unavailable | + + + Support + + + + + | Name | Relationship | Address | Phone | + + + + + | Lesia Castaneda | ECON | [address] | | | | | [place] [address] | | + + + + + | Rosina Castaneda | ECON | Unknown | | + + + + + | Sandy Zamora | ECON | [address] | | | | [place] | | | | | [address] | | + + + + + Care Team Providers + +------+ + | Care Circular Sawyer Stone Name | Role | Phone | + +------+ + | Sergio Thompson MD | PCP | | + +------+ + Encounter Details +--------+ + + + + | Date | Type | Department | Care Team | Description | +--------+ + + + + | 06/29/ | Abstract | [facility] | Demond More MD | | | 2015 | | GASTROENTEROLOGY | [address] | | | | | [address] | [address] [place] | | | | | [address] [place], [place] | [address] | | | | | [address] | | | | | | [phone] | | | +--------+ + + + [...] [place] | | | | | | [address] | | | | | | | | +--------+---------+ + + + documented as of this encounter Visit Diagnoses Not on filedocumented in this encounter"
--- OUTSIDE RECORDS SUMMARY | ~2019-12-09 | XMS | Encounter Summary ---
Demographics + + + | Address | [address] | | | [place] [address] | + + + | Home Phone | | + + + | Preferred Language | Unknown | + + + | Marital Status | | + + + | Yarsani Affiliation | 1041 | + + + | Race | Unknown | + + + | Ethnic Group | Unknown | + + + Author + + + | Author | [facility] | | | and [place] | + + + | Organization | [facility] | | | and [place] | + + + | Address | Unknown | + + + | Phone | Unavailable | + + + Support + + + + + | Name | Relationship | Address | Phone | + + + + + | Lesia Castaneda | ECON | [address] | | | | | [place] [address] | | + + + + + | Rosina Castaneda | ECON | Unknown | | + + + + + | Sandy Zamora | ECON | [address] | | | | | [address] | | | | | [address] | | + + + + + Care Team Providers + +------+ + | Care Blunger Name | Role | Phone | + +------+ + PCP | Unavailable | + +------+ + Encounter Details +--------+ + + + + | Date | Type | Department | Care Team | Description | +--------+ + + + + | 08/18/ | Hospital | [facility] | | | | 2008 - | Encounter | MED CTR CANCER | | | | | | CENTER [address] | | | | 08/23/ | | [place] | | | | 2008 | | [address] | | | | | | [phone] | | | +--------+ + + + [...] | | | | | [place], [place] | | | | | | [address] | | | | | | | | +--------+---------+ + + + documented as of this encounter Visit Diagnoses Not on filedocumented in this encounter"
--- OUTSIDE RECORDS SUMMARY | ~2019-12-09 | XMS | Encounter Summary ---
Demographics + + + | Address | [address] | | | [place] [address] | + + + | Home Phone | | + + + | Preferred Language | Unknown | + + + | Marital Status | | + + + | Bahai Affiliation | 1041 | + + + | Race | Unknown | + + + | Ethnic Group | Unknown | + + + Author + + + | Author | [facility] | | | and [place] | + + + | Organization | [facility] | | | and [place] | + + + | Address | Unknown | + + + | Phone | Unavailable | + + + Support + + + + + | Name | Relationship | Address | Phone | + + + + + | Lesia Castaneda | ECON | [address] | | | | | [place] [address] | | + + + + + | Rosina Castaneda | ECON | Unknown | | + + + + + | Sandy Zamora | ECON | [address] | | | | [place] | | | | | [address] | | + + + + + Care Team Providers + +------+ + | Care Trustee Of Estate Name | Role | Phone | + +------+ + | Jerome Ray | PCP | | | MD | | | + +------+ + Encounter Details +--------+ + + + + | Date | Type | Department | Care Team | Description | +--------+ + + + + | 07/22/ | Orders Only | [facility] | Demond Castellon | Malignant neoplasm | | 2014 | | MED CTR MEDICAL | MD [address] | of prostate (HCC) | | | | [facility]Y CLIN[facility] [address] | [facility] | (Primary Dx) | | | | [facility] | [place] [address] | | | | | [place] [address] | [phone] | | | | | [phone] | | | +--------+ + + + [...] | | | | | [address] [address] [place], [place] | | | | | | [address] | | | | | | | | +--------+---------+ + + + documented as of this encounter Results Comprehensive Metabolic Panel (01/13/2014 10:21 AM PDT) + + + + + [...] + + + + | K | 4.1 | 3.5 - 5.1 | [facility] | [...] + + + | Anion Gap | 4 | 3 - 16 mmol/L | [facility] | | | | | [facility] | | | | [facility] | [facility] | | | | | | C[facility] - | | | | | | LABORATORY | | + + + + + + | Glucose | 95 | 70 - 109 mg/dL | [facility] | | | | | [facility] | | | | | | MEDICAL | | | | | | CENTER - | | | | | | LABORATORY | | + + + + + + | BUN | 23 (H) | 7 - 18 mg/dL | [facility] | | | | | | [facility] | | | | | | MEDICAL | | | | | | CENTER - | | | | | | LABORATORY | | + + + + + + | Creatinine | 1.14 | 0.60 - 1.30 | [facility] | | | | | mg/dL | [facility] | | | | | | MEDICAL | | | | | | CENTER - | | | | | | LABORATORY | | + + + + + + | eGFR if not | >60Comment: GLOMERULAR | >=60 | DRE | | | | FILTRATION | mL/min/1.73m2 | [facility] | | | LATVIAN | RATE,ESTIMATED | | MEDICAL | | | | mL/min/1.12k0Houq than | | CENTER - | | [...] + + + + | Calcium | 9.2 | 8.3 - 10.5 | [facility] | | | | | mg/dL | [facility] | | | | | | MEDICAL | | | | | | CENTER - | | | | | | LABORATORY | | + + + + + + | Albumin | 4.1 | 3.2 - 5.0 g/dL | [facility] | | | | | | [facility] | | | | | | MEDICAL | | | | | | CENTER - | | | | | | LABORATORY | | + + + + + + | Bilirubin | 3.3 (H) | 0.1 - 1.5 mg/dL | [facility] | | | Total | | | [facility] | | | | | | MEDICAL | | | | | | CENTER - | | | | | | LABORATORY | | + + + + + + | Total | 6.7 | 6.0 - 7.8 g/dL | [facility] | | | Protein | | | [facility] | | | | | | MEDICAL | | | | | | CENTER - | | | | | | LABORATORY | | + + + + + + | AST | 16 | 10 - 42 U/L | [facility] | | | | | | [facility] | | | | | | MEDICAL | | | | | | CENTER - | | | | | | LABORATORY | | + + + + + + | ALT | 11 | 6 - 45 U/L | [facility] | | | | | | [facility] | | | | | | MEDICAL | | | | | | CENTER - | | | | | | LABORATORY | | + + + + + + | Alkaline | 69 | 40 - 110 U/L | [facility] | | | Phosphatase | | | [facility] | | | | | | MEDICAL | | | | | | CENTER - | | | | | | LABORATORY | | + + + + + + | Globulin | 2.6 | g/dL | [facility] | | | | | | [facility] | | | | | | MEDICAL | | | | | | CENTER - | | | | | | LABORATORY | | + + + + + + | Albumin/Angeles | 1.6 | | [facility] | | | bulin Ratio | | | [facility] | | | | | | MEDICAL | | | | | | CENTER - | | | | | | LABORATORY | | + + + + + + | BUN/Creatin | 20.2 | | [facility] | | | ine Ratio | | | [facility] | | | | | | MEDICAL | | | | | | CENTER - | | | | | | LABORATORY | | + + + + + + + + | Specimen | + + | Blood - Vein sample | | (specimen) | + + + + + + + | Performing | Address | City/State/Zipcode | Phone Number | | Organization | | | | + + + + + | [facility] | [address] | [place] | [phone] | | [facility] | | [address] | | | - LABORATORY | | | | + + + + + | [facility] | [address] | [place] | | | [facility] | | [address], [facility] | | | - LABORATORY | | | | + + + + + CBC with Differential (01/13/2014 10:21 AM PDT) + + + + + + | Component | Value | Ref Range | Performed | Pathologist | | | | | At | Signature | + + + + + + | White Blood | 3.7 (L) | 4.0 - 11.0 K/uL | [facility] | | | Cells | | | [facility] | | | | | | MEDICAL | | | | | | CENTER - | | | | | | LABORATORY | | + + + + + + | Red Blood | 3.09 (L) | 4.30 - 5.70 | [facility] | | | Cells | | M/uL | [facility] | | | | | | MEDICAL | | | | | | CENTER - | | | | | | LABORATORY | | + + + + + + | Hemoglobin | 10.2 (L) | 13.5 - 18.0 | [facility] | | | | | g/dL | [facility] | | | | | | MEDICAL | | | | | | CENTER - | | | | | | LABORATORY | | + + + + + + | Hematocrit | 29.8 (L) | 40.0 - 51.0 % | [...] + + + + | MCHC | 34.3 | 32.0 - 36.0 | [facility] | [...] + + + + | Platelet | 174 | 140 - 440 K/uL | [facility] [...] + + + + | % | 67.4 | 45.0 - 82.0 % | [facility] | | | Neutrophils | | | [facility] | | | | | | MEDICAL | | | | | | CENTER - | | | | | | LABORATORY | | + + + + + + | % | 21.1 | 20.0 - 45.0 % | [facility] | | | Lymphocytes | | | [facility] | | | | | | MEDICAL | | | | | | CENTER - | | | | | | LABORATORY | | + + + + + + | % Monocytes | 8.6 | 4.0 - 12.0 % | [facility] | | | | | | [facility] | | | | | | MEDICAL | | | | | | CENTER - | | | | | | LABORATORY | | + + + + + + | % | 1.9 | 0.0 - 5.0 % | [facility] | | | Eosinophils | | | [facility] | | | | | | MEDICAL | | | | | | CENTER - | | | | | | LABORATORY | | + + + + + + | % Basophils | 1.0 | 0.0 - 1.0 % | [facility] | | | | | | [facility] | | | | | | MEDICAL | | | | | | CENTER - | | | | | | LABORATORY | | + + + + + + | Absolute | 2.50 | 1.80 - 8.50 | [facility] | [...] | Basophils | | K/uL | [facility] | | | | | | MEDICAL | | | | | | CENTER - | | | | | | LABORATORY | | + + + + + + + + | Specimen | + + | Blood - Vein sample | | (specimen) | + + + + + + + | Performing | Address | City/State/Zipcode | Phone Number | | Organization | | | | + + + + + | [facility] | [address] | [place] | [phone] | | [facility] | | [address] | | | - LABORATORY | | | | + + + + + | [facility] | [address] | [place], [place] | | | [facility] | | [id number] | | | - LABORATORY | | | | + + + + + documented in this encounter Visit Diagnoses + + | Diagnosis | + + | Malignant neoplasm of prostate (HCC) - Primary Malignant neoplasm of prostate | + + documented in this encounter"
--- OUTSIDE RECORDS SUMMARY | ~2019-12-09 | XMS | Encounter Summary ---
Demographics + + + | Address | [address] | | | [place] [address] | + + + | Home Phone | | + + + | Preferred Language | Unknown | + + + | Marital Status | | + + + | Scientology Affiliation | 1041 | + + + | Race | Unknown | + + + | Ethnic Group | Unknown | + + + Author + + + | Author | [facility] | | | and [place] | + + + | Organization | [facility] | | | and [place] | + + + | Address | Unknown | + + + | Phone | Unavailable | + + + Support + + + + + | Name | Relationship | Address | Phone | + + + + + | Lesia Castaneda | ECON | [address] | | | | | [place] [address] | | + + + + + | Rosina Castaneda | ECON | Unknown | | + + + + + | Sandy Zamora | ECON | [address] | | | | | [place] | | | | | [address] | | + + + + + Care Team Providers + +------+ + | Care Team Assembler Name | Role | Phone | + +------+ + PCP | Unavailable | + +------+ + Encounter Details +--------+ + + + + | Date | Type | Department | Care Team | Description | +--------+ + + + + | 01/31/ | Hospital | [facility] | Chaitanya Samuel, | | | 2010 - | Encounter | [facility] | [place] [address] [facility] | | | | | [place] [address] | [place] | | | 02/22/ | | [place] | [address] | | | 2010 | | [address] | [phone] | | | | | [phone] | | | +--------+ + + + [...] documented as of this encounter Progress Notes Chaitanya Samuel MD - 01/31/2011 1:19 AM PDTDATE: 01/31/2011 RADIATION ONCOLOGY FOLLOWUP NOTE DIAGNOSIS: Prostate adenocarcinoma. FOLLOWUP NOTE: Mr. Demond Castaneda is a 80-year-old gentleman, with a history of an adenocarc inoma of t he prostate, initially treated with an iodine prostate brachytherapy seed implan tation back in 0. The patient did develop a PSA recurrence and did undergo external beam radiation treatments to the prostate back in 2005, receiving 4500 cGy in 180 cGy fract ions. More recently, he has been undergoin g hormone injections, with Lupron. The patient's last hormone injection was in 03/2010. When the shanelle ent was last seen here back in July, he did not wish to proceed with the hormone treatments, as he w as quite bothered by hot f lashes. The decision was made to hold off on any further Lupron, and to hav e him return in 6 months for further followup. The patient states that his hot flashes have markedly impro dilma since coming off the hormone treatment. The patient states he has developed some discomf ort in the right breast, and gynecomastia. Of note, the patient did undergo a total left kn ee replacement 9 weeks ago and is still recovering from that. He does plan on going on a ca ttle round-up in February , and hopes to be feeling well enough to do that at that time. The patient denies any diarrhea, recta l irritation or blood in his stools, and is currently p leased with his present urinary function. He d oes get up one time a night to urinate, he d oes have an AUA score of 2 out of a possible 35 today. PHYSICAL EXAMINATION VITAL SIGNS: Weight is 76 kg, blood pressure 120/64, pulse of 80, temperature 36 degrees C elsius. GENERAL: The patient is awake, alert and oriented, in no apparent distress. NECK: There is no cervical or supraclavicular lymphadenopathy appreciated. There is no ten derness to palpation of the spine. LUNGS: Clear to auscultation bilaterally. HEART: Regular rate and rhythm. ABDOMEN: Soft, nontender, nondistended. RECTAL: On rectal exam, sphincter tone was normal. Prostate was smooth and flat without no dularity. LABORATORY DATA: Serum PSA on 01/31/2011 was 0.05. ASSESSMENT AND PLAN: Mr. Demond Castaneda is a 80-year-old gentleman with a history of prostat e cancer, who is 11 years out from his initial treatment. The patient has been on hormonal therapy, more recent ly because of PSA recurrence, but his last Lupron shot was back in [facility]. The patient's PSA did go from 0.01 to 0.05, however, it is still quite low. The shanelle ent is still interested in not pursuing a ny hormone treatment. I did state the risk would be that his testosterone could slowly rise, causing increase in the PSA, which could associ ated with spread of metastatic disease. I did state that is ve ry possible that the testost erone will come up slowly. The decision was made to have him return in 3 months with a repe at PSA. If the PSA continues to rise, he would consider hormone treatment at that t alvarez. Th e patient was given prescription for repeat PSA in 3 months, and has scheduled a followup ap po intment with me in 6 months. I will have him come in sooner if the PSA has gone up. The patient was a greeable to this plan. DICTATED BY: Chaitanya Samuel MD Radiation Oncology JOB #: [id number] EXT JOB #:[id number] cc: MD Jacob Whitaker MD <Electronically Signed by Chaitanya Samuel MD> 02/08/11 1494 documented in this encounter Plan of Treatment +--------+---------+ + + + | Date | Type | Specialty | Care Team | Description | +--------+---------+ + + + | 02/01/ | Office | Cardiology | Jazlyn Almeida, | | | 2020 | Visit | | MD Vikram RICARDO | | | | | | [place] | | | | | | [address] | | | | | | | | +--------+---------+ + + + documented as of this encounter Procedures + +--------+ + + + | Procedure Name | Priori | Date/Time | Associated Diagnosis | Comments | | | ty | | | | + +--------+ + + + | PSA, DIAGNOSTIC | Routin | 01/31/2011 | | Results for this | | | e | 10:06 AM | | procedure are in the | | | | PDT | | results section. | + +--------+ + + + documented in this encounter Results PSA, Diagnostic (01/31/2011 10:06 AM PDT) + + + + + + | Component | Value | Ref Range | Performed | Pathologist | | | | | At | Signature | + + + + + + | PSA, Total | 0.05Comment: After | 0.00 - 4.00 | [facility] | | | | radical prostatectomy, a | ng/mL | [facility] | | | | PSA value of <0.05 | | MEDICAL | | | | ng/mL indicates no | | CENTER - | | | | detectable residual | | LABORATORY | | | | disease. Testing | | | | | | performed on the Tiffanie | | | | | | Darius Access | | | | | | Analyzer. | | | | + + + + + + + + | Specimen | + + | | + + + + + + + | Performing | Address | City/State/Zipcode | Phone Number | | Organization | | | | + + + + + | [facility] | [address] | [place], [place] | [phone] | | [facility] | | [address] | | | - LABORATORY | | | | + + + + + | [facility] | [address] | [place], [place] | | | [facility] | | [address], [facility] | | | - LABORATORY | | | | + + + + + documented in this encounter Visit Diagnoses Not on filedocumented in this encounter"
--- OUTSIDE RECORDS SUMMARY | ~2019-12-09 | XMS | Encounter Summary ---
Demographics + + + | Address | [address] | | | [place] [address] | + + + | Home Phone | | + + + | Preferred Language | Unknown | + + + | Marital Status | | + + + | Sikh Affiliation | 1041 | + + + | Race | Unknown | + + + | Ethnic Group | Unknown | + + + Author + + + | Author | [facility] | | | and [place] | + + + | Organization | [facility] | | | and [place] | + + + | Address | Unknown | + + + | Phone | Unavailable | + + + Support + + + + + | Name | Relationship | Address | Phone | + + + + + | Lesia Castaneda | ECON | [address] | | | | | [place] [address] | | + + + + + | Rosina Castaneda | ECON | Unknown | | + + + + + | Sandy Zamora | ECON | [address] | | | | | [place] | | | | | [address] | | + + + + + Care Team Providers + +------+ + | Care Ammonia Box Tender Name | Role | Phone | + +------+ + | Jerome Ray | PCP | | | MD | | | + +------+ + Encounter Details +--------+ + + + + | Date | Type | Department | Care Team | Description | +--------+ + + + + | 08/21/ | Hospital | [facility] | Chaitanya Samuel, | | | 2012 - | Encounter | MED CTR CANCER | [address] | | | | | [address] | [place] | | | 08/23/ | | [place] | [address] | | | 2012 | | [address] | [phone] | | | | | [phone] | | | +--------+ + + + [...] [place] | | | | | | [address] | | | | | | | | +--------+---------+ + + + documented as of this encounter Procedures + +--------+ + + + | Procedure Name | Priori | Date/Time | Associated Diagnosis | Comments | | | ty | | | | + +--------+ + + + | PSA, DIAGNOSTIC | Routin | 08/21/2012 | | Results for this | | | e | 11:14 AM | | procedure are in the | | | | PDT | | results section. | + +--------+ + + + documented in this encounter Results PSA, Diagnostic (08/21/2012 11:14 AM PDT) + + + + + + | Component | Value | Ref Range | Performed | Pathologist | | | | | At | Signature | + + + + + + | PSA, Total | 1.43Comment: After | 0.00 - 4.00 | [facility] [...] + | [facility] | [address] | [place] | [phone] | | [facility] | | [address] | | | - LABORATORY | | | | + + + + + | [facility] | [address] | [place] | | | [facility] | | [id number] [place] [address] | | | - LABORATORY | | | | + + + + + documented in this encounter Visit Diagnoses Not on filedocumented in this encounter"
--- OUTSIDE RECORDS SUMMARY | ~2019-12-09 | XMS | Encounter Summary ---
Demographics + + + | Address | [address] | | | [place] [address] | + + + | Home Phone | | + + + | Preferred Language | Unknown | + + + | Marital Status | | + + + | Sikhism Affiliation | 1041 | + + + [...] + | Lesia Castaneda | ECON | [address] | | | | | [place] [address] | | + + + + + | Rosina Castaneda | ECON | Unknown | | + + + + + | Sandy Zamora | ECON | [address] | | | | | [address] | | | | | [address] | | + + + + + Care Team Providers + +------+ + | Care Frame Assembler Name | Role | Phone | + +------+ + PCP | Unavailable | + +------+ + Encounter Details +--------+ + + + + | Date | Type | Department | Care Team | Description | +--------+ + + + + | 11/30/ | Hospital | [facility] | | | | 2009 - | Encounter | MED CTR CANCER | | | | | | CENTER [address] | | | | 12/23/ | | [place] | | | | 2009 | | [address] | | | | | | [phone] | | | +--------+ + + + [...] | | | | | [place], [place] | | | | | | [address] | | | | | | | | +--------+---------+ + + + documented as of this encounter Visit Diagnoses Not on filedocumented in this encounter"
--- OUTSIDE RECORDS SUMMARY | ~2019-12-09 | XMS | Encounter Summary ---
Demographics + + + | Address | [address] | | | [place] [address] | + + + | Home Phone | | + + + | Preferred Language | Unknown | + + + | Marital Status | | + + + | Jewish Affiliation | 1041 | + + + | Race | Unknown | + + + | Ethnic Group | Unknown | + + + Author + + + | Author | [facility] | | | and [place] | + + + | Organization | [facility] | | | and [place] | + + + | Address | Unknown | + + + | Phone | Unavailable | + + + Support + + + + + | Name | Relationship | Address | Phone | + + + + + | Lesia Castaneda | ECON | [address] | | | | | [place] [address] | | + + + + + | Rosina Castaneda | ECON | Unknown | | + + + + + | Sandy Zamora | ECON | [address] | | | | | [place] | | | | | [address] | | + + + + + Care Team Providers + +------+ + | Care Research Hydrologist Name | Role | Phone | + +------+ + | Jerome Ray | PCP | | | MD | | | + +------+ + Encounter Details +--------+ + + + + | Date | Type | Department | Care Team | Description | +--------+ + + + + | 07/12/ | Abstract | [facility] | Demond Castellon | | | 2013 | | Conversion Location | MD [facility] [address] | | | | [address] | [facility] | | | | | [place], [place] | [place] [address] | | | | | [address] | [phone] | | | | | [phone] | | | +--------+ + + + [...] + + + | Blood Pressure | - | - | | + + + + + | Pulse | - | - | | + [...] + + + + | Weight | 79.5 kg (175 lb 4.3 | 06/30/2013 3:30 PM | | | | oz) | PST | | + + + + + | Height | - | - | | + + + + + | Body Mass Index | - | - | | + + + + + documented in this encounter Plan of Treatment +--------+---------+ + + + | Date | Type | Specialty | Care Team | Description | +--------+---------+ + + + | 02/01/ | Office | Cardiology | Jazlyn Almeida, | | | 2020 | Visit | | MD Vikram RICARDO | | | | | | [place] | | | | | | [address] | | | | | | | | +--------+---------+ + + + documented as of this encounter Visit Diagnoses Not on filedocumented in this encounter"
--- OUTSIDE RECORDS SUMMARY | ~2019-12-09 | XMS | Encounter Summary ---
Demographics + + + | Address | [address] | | | [place] [address] | + + + | Home Phone | | + + + | Preferred Language | Unknown | + + + | Marital Status | | + + + | Nondenominational Affiliation | 1041 | + + + | Race | Unknown | + + + | Ethnic Group | Unknown | + + + Author + + + | Author | [facility] | | | and [place] | + + + | Organization | [facility] | | | and [place] | + + + | Address | Unknown | + + + | Phone | Unavailable | + + + Support + + + + + | Name | Relationship | Address | Phone | + + + + + | Lesia Castaneda | ECON | [address] | | | | | [place] [address] | | + + + + + | Rosina Castaneda | ECON | Unknown | | + + + + + | Sandy Zamora | ECON | [address] | | | | [address] | | | | | [address] | | + + + + + Care Team Providers + +------+ + | Care Chemical Compounder Helper Name | Role | Phone | + +------+ + PCP | Unavailable | + +------+ + Encounter Details +--------+ + + + + | Date | Type | Department | Care Team | Description | +--------+ + + + + | 09/02/ | Hospital | [facility] | | | | 2007 - | Encounter | MED CTR CANCER | | | | | | CENTER [address] | | | | 09/22/ | | [place] | | | | 2007 | | [address] | | | | | | [phone] | | | +--------+ + + + [...] | | | | | [place], [place] | | | | | | [address] | | | | | | | | +--------+---------+ + + + documented as of this encounter Visit Diagnoses Not on filedocumented in this encounter"
--- OUTSIDE RECORDS SUMMARY | ~2019-12-09 | XMS | Encounter Summary ---
Demographics + + + | Address | [address] | | | [place] [address] | + + + | Home Phone [...] + | Lesia Castaneda | ECON | [address] | | | | | [place] [address] | | + + + + + | Rosina Castaneda | ECON | Unknown | | + + + + + | Sandy Zamora | ECON | [address] | | | | | [place] | | | | | [address] | | + + + + + Care Team Providers + +------+ + | Care Ornamental Iron Worker Apprentice Name | Role | Phone | + +------+ + | Sergio Thompson MD | PCP | | + +------+ + Encounter Details +--------+ + + + + | Date | Type | Department | Care Team | Description | +--------+ + + + + | 02/13/ | Hospital | [facility] | Demond Castellon | CA prostate, adenoca | | 2016 | Encounter | [facility] | MD [address] | (HCC) (Primary Dx); | | | | ONCOLOGY CLINIC [address] | [facility] | Acquired hemolytic | | | | [facility] | [place] [address] | anemia (HCC); Iron | | | | [place] [address] | [phone] | deficiency anemia | | | | [phone] | | due to chronic blood | | | | | | loss; Personal | | | | | | history of malignant | | | | | | neoplasm of | | | | | | prostate | +--------+ + + + + [...] + + + | Blood Pressure | 133/61 | 02/14/2016 11:24 AM | | | | | PDT | | + + + + + | Pulse | 60 | 02/14/2016 11:24 AM | | | | | PDT | | + + + + + | Temperature | 2.5 C (36.5 F) | 02/14/2016 11:24 AM | | | | | PDT | | + + + + + | Respiratory Rate | 16 | 02/14/2016 11:24 AM | | | | | PDT | | + + + + + | Oxygen Saturation | 99% | 02/14/2016 11:24 AM | | | | | PDT | | + + + + + | Inhaled Oxygen | - | - | | | Concentration | | | | + + + + + | Weight | 76.7 kg (169 lb 1.5 | 02/14/2016 11:24 AM | | | | oz) | PDT | | + + + + + | Height | - | - | | + + + + + | Body Mass Index | 22.31 | 11/19/2015 8:00 PM | | | | | PDT [...] encounter Progress Notes Demond Castellon MD - 02/14/2016 11:59 AM PDTFormatting of this note might be diff erent from the original. Hem-Onc Progress Note [facility] Pt. Name/Age/: Demond Castaneda 85 y.o. 1930 Med. Record Number: [id number] Date of admission: 02/14/2016 Assessment and plan: 1. 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 Stroke, November, 3. Angina Pectoris, Dec, 2013, S/p PCI, [facility], [place] Review of laboratory testing today noting continued presence of moderate anemia, hemoglobin today 9.9 g percent with normocytic red blood cell indices. This gave us a chance to revie w earlier testing from the beginning of the year disclosing a normal cellular bone marrow wi th slight erythroid hyperplasia. Patient however then had adequate iron stores. Patient's current level of anemia does not produce symptoms and patient able to pursue all of his norm al activities. 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 Subjective: The patient chart and medications were reviewed in detail and the patient was seen and exam inekofi. Demond Castaneda is a 85 y.o. male returns today for follow-up because of biochemical rel apse of prostate cancer. Patient describes experienced a fall tripping while grooming his hoarse earlier this spring shortly after our most recent visit causing him to fall and fractured his hip. He was seen then here at [facility] where he underwent hip replacement by Dr. Mercado. Surgery was very successful allowing patient to resume ambulatory status and patient has just stopp ed using his cane. He describes that he has more difficulties riding downhill acquires leg strength digging his knees into the hoarse to brace his trunk which she finds still difficul t. He is otherwise felt well. He describes the recent loss of long time partner and fellow co wboy recently passing away from illness including prostate cancer for which he had undergone parallel treatments. 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 PSH: Reviewed, no changes to admission H&P. Review of Systems: Constitutional: Denies fatigue. Denies high fevers, shaking chills, anorexia, nausea, vomit ing, or night sweats. Appetite without changes. Weight loss of 8 lbs states " I just don't e at much". Ear, Nose, Mouth, Throat: Denies odynophagia, dysphagia, or tinnitus. Cardiovascular: Denies shortness of breath, dyspnea on exertion, chest pain, palpitations o r orthopnea. Respiratory: Denies cough, hemoptysis, or sputum production. Gastrointestinal: Denies abdominal pain, constipation, diarrhea, melena, or bright red bloo d per rectum. Genitourinary: Denies hematuria or dysuria. Musculoskeletal: States mild discomfort in the right hip and right knee-no pain today. Neurologic: Denies headache, visual changes, or numbness/tingling of the extremities. Endocrine: Denies peripheral edema or heat/cold intolerance. Hematologic: Denies spontaneous bruising or bleeding. Integumentary: Denies rash, wounds or other skin concerns. States two months ago having a f ew areas [facility] Pain: Denies pain. Review of systems as above otherwise negative Scheduled Medications: Continuous Infusions: PRN Meds:. Allergy: Allergies Allergen Reactions Sulfa Antibiotics Nausea And Vomiting Objectives: Temp: (!) 2.5 C (36.5 F) BP: 133/61 mmHg Pulse: 60 Resp: 16 SpO2: 99 % on Min/Max Temp past 24 hours:Temp Av.5 C (36.5 F) Min: 2.5 C (36.5 F) Max: 2.5 C (36.5 F) No intake or output data in the 24 hours ending 02/14/16 1159 Wt. Admission: Weight: 76.7 kg (169 lb 1.5 oz) Wt. Current: Weight: 76.7 kg (169 lb 1.5 oz) Physical Exam: Exam: General: Elderly but spry HEENT: PERRL, Oral mucosa intact. Neck is supple. Cardiovascular: Regular rate and rhythm, no murmur. Respiratory: Clear to auscultation and percussion. Breast: Not examined Abdomen: Soft, nontender, no hepatospenomegaly. No palpable masses. Bowel sounds present. Genitourinary: Deferred. Extremities: Antalgic gait Skin: No rashes, bruising, or petechiae. Lymph: [...] the Assessment and Plan. Recent Labs Lab 02/14/16 1103 WBC 4.8 HGB 9.9* HCT 28.5* PLT 192 Recent Labs Lab 02/14/16 1103 NA 142 K 4.1 CL 106 CO2 28 BUN 30* CREA 1.30 GLU 95 CALCIUM 9.8 BILITOT 3.1* AST 20 ALT 16 ALKPHOS 101 ALBUMIN 4.3 Electronically signed by: Demond Castellon, 02[facility]14[facility]2016 11:[facility] SPENT 20 MIN. > 50% AT BEDSIDE, WITH FAMILY/PATIENT IN CARE AND DIRECTOR WHOLESALE ON UNIT AND CO ORDINATION OF CARE Portions of this chart may have been created with [employer] voice recognition software. Occasi onal wrong-word or sound-alike substitutions may have occurred due to the inherent epperson itations of voice recognition software. Please read the chart carefully and recognize, using context, where these substitutions have occurred. Natalya Paez CMA - 02/14/2016 11:25 AM PDTREVIEW OF SYSTEMS Constitutional: Denies fatigue. Denies high fevers, shaking chills, anorexia, nausea, vomit ing, or night sweats. Appetite without changes. Weight loss of 8 lbs states " I just don't eat much". Ear, Nose, Mouth, Throat: Denies odynophagia, dysphagia, or tinnitus. Cardiovascular: Denies shortness of breath, dyspnea on exertion, chest pain, palpitations o r orthopnea. Respiratory: Denies cough, hemoptysis, or sputum production. Gastrointestinal: Denies abdominal pain, constipation, diarrhea, melena, or bright red bloo d per rectum. Genitourinary: Denies hematuria or dysuria. Musculoskeletal: States mild discomfort in the right hip and right knee-no pain today. Neurologic: Denies headache, visual changes, or numbness/tingling of the extremities. Endocrine: Denies peripheral edema or heat/cold intolerance. Hematologic: Denies spontaneous bruising or bleeding. Integumentary: Denies rash, wounds or other skin concerns. States two months ago having a f ew areas on the [facility]. Pain: Denies pain. Note: Pt is here for follow up and labs My chart: documented in this encounter Miscellaneous Notes Addendum Note - Demond Castellon MD - 02/14/2016 12:04 PM PDTEncounter addended by : Demond Castellon MD on: 02/14/2016 12:04
Documentation filed: Visit Diagnose s, Notes Section ddendum Note - Demond Castellon MD - 02/14/2016 11:57 AM PDTEncounter addended by: Demond Castellon MD on: 02/14/2016 11:57
Documentation filed: Follow-up RAVI Cohen Section A M PDTdocumented in this encounter Plan of Treatment +--------+---------+ + + + | Date | Type | Specialty | Care Team | Description | +--------+---------+ + + + | 02/01/ | Office | Cardiology | Jazlyn Almeida, | | | 2019 | Visit | | MD [address] R[address]ARDO | | | | | | [place], [place] | | | | | | [address] | | | | | | | | +--------+---------+ + + + documented as of this encounter Procedures + +--------+ + + + | Procedure Name | Priori | Date/Time | Associated Diagnosis | Comments | | | ty | | | | + +--------+ + + + | CBC W/AUTO | STAT | 02/14/2016 | Acquired hemolytic | Results for this | | DIFFERENTIAL | | 11:03 AM | anemia (HCC) | procedure are in the | | | | PDT | | results section. | + +--------+ + + + | PSA, DIAGNOSTIC | STAT | 02/14/2016 | CA prostate, | Results for this | | | | 11:03 AM | adenoca (HCC) | procedure are in the | | | | PDT | | results section. | + +--------+ + + + | LACTATE | STAT | 02/14/2016 | Acquired hemolytic | Results for this | | DEHYDROGENASE | | 11:03 AM | anemia (HCC) | procedure are in the | | | | PDT | | results section. | + +--------+ + + + | COMPREHENSIVE | STAT | 02/14/2016 | Iron deficiency | Results for this | | METABOLIC PANEL | | 11:03 AM | anemia due to | procedure are in the | | | | PDT | chronic blood loss | results section. | | | | | Personal history of | | | | | | malignant neoplasm | | | | | | of prostate | | + +--------+ + + + documented in this encounter Results Comprehensive Metabolic Panel (02/14/2016 11:03 AM PDT) + + + + + [...] Cl | 106 | 98 - 109 mmol/L | [facility] [...] + + + + | BUN | 30 (H) | 7 - 18 mg/dL | [facility] | [facility] | | | | | | [facility]ICAL | | | | | | CENTER - | | | | | | LABORATORY | | + + + + + + | Creatinine | 1.30 | 0.60 - 1.30 | [facility] | | | | | mg/dL | [facility] | | | | | | MEDICAL | | | | | | CENTER - | | | | | | LABORATORY | | + + + + + + | eGFR if not | 53 (L)Comment: | >=60 | [facility] | | | | GLOMERULAR FILTRATION | mL/min/1.73m2 | [facility] | | | [place] | RATE,ESTIMATED | | MEDICAL | | | | mL/min/1.26k1Igwa than | | CENTER - | | [...] + + + + | Calcium | 9.8 | 8.3 - 10.5 | [facility] | | | | | mg/dL | [facility] | | | | | | MEDICAL | | | | | | CENTER - | | | | | | LABORATORY | | + + + + + + | Albumin | 4.3 | 3.2 - 5.0 g/dL | [facility] | | | | | | [facility] | | | | | | MEDICAL | | | | | | CENTER - | | | | | | LABORATORY | | + + + + + + | Bilirubin | 3.1 (H)Comment: This is | 0.1 - 1.5 mg/dL | [facility] | | | Total | an appended report. | | [facility] | | | | These results have been | | MEDICAL | | | | appended to a previously | | CENTER - | | | | preliminary verified | | LABORATORY | | | | report. | | | | + + + + + + | Total | 7.1 | 6.0 - 7.8 g/dL | [facility] [...] | | appended report. These | | [facility] | | | | results have been | | MEDICAL | | | | appended to a previously | | CENTER - | | | | preliminary verified | | LABORATORY | | | | report. | | | | + + + + + + | ALT | 16Comment: This is an | 6 - 45 [...] + + + + | Alkaline | 101Comment: This is an | 40 - 110 [...] + + + + | Globulin | 2.8 | 2.1 - 3.8 g/dL | [facility] | | | | | | [facility] | | | | | | MEDICAL | | | | | | CENTER - | | | | | | LABORATORY | | + + + + + + | Albumin/Angeles | 1.5 | 0.8 - 2.0 | [facility] | | | bulin Ratio [...] [address] | [place] | [phone] | | [facility] | | [address] | | | - LABORATORY | | | | + + + + + CBC w/ Auto Differential (02/14/2016 11:03 AM PDT) + + + + + + | Component | Value | Ref Range | Performed | Pathologist | | | | | At | Signature | + + + + + + | White Blood | 4.8 | 4.0 - 11.0 K/uL | [facility] [...] + + + + | Hemoglobin | 9.9 (L) | 13.5 - 18.0 | [facility] | | | | | g/dL | [facility] | | | | | | MEDICAL | | | | | | CENTER - | | | | | | LABORATORY | | + + + + + + | Hematocrit | 28.5 (L) | 40.0 - 51.0 % | [facility] | | | | | | [facility] | | | | | | MEDICAL | | | | | | CENTER - | | | | | | LABORATORY | | + + + + + + | MCV | 96.2 | 83.0 - 101.0 fL | [facility] | | | | | | [facility] | | | | | | MEDICAL | | | | | | CENTER - | | | | | | LABORATORY | | + + + + + + | MCH | 33.5 | 28.0 - 35.0 pg | [facility] | | | | | | [facility] | | | | | | MEDICAL | | | | | | CENTER - | | | | | | LABORATORY | | + + + + + + | MCHC | 34.8 | 32.0 - 36.0 | [facility] | | | | | g/dL | [facility] | | | | | | MEDICAL | | | | | | CENTER - | | | | | | LABORATORY | | + + + + + + | RDW-CV | 21.3 (H) | <15.0 % | [facility] | | | | | | [facility] | | | | | | MEDICAL | | | | | | CENTER - | | | | | | LABORATORY | | + + + + + + | Platelet | 192 | 140 - 440 K/uL | [facility] | | | Count | | | [facility] | | | | | | MEDICAL | | | | | | CENTER - | | | | | | LABORATORY | | + + + + + + | MPV | 6.9 | fL | [facility] | | | | | | [facility] | | | | | | MEDICAL | | | | | | CENTER - | | | | | | LABORATORY | | + + + + + + | % | 71.0 | 45.0 - 82.0 % | [facility] | | | Neutrophils | | | [facility] | | | | | | MEDICAL | | | | | | CENTER - | | | | | | LABORATORY | | + + + + + + | % | 17.0 (L) | 20.0 - 45.0 % | [facility] | | | Lymphocytes | | | [facility] | | | | | | MEDICAL | | | | | | CENTER - | | | | | | LABORATORY | | + + + + + + | % Monocytes | 9.3 | 4.0 - 12.0 % | [facility] [...] + + + | % Basophils | 1.1 (H) | 0.0 - 1.0 % | [facility] | | | | | | [facility] | | | | | | MEDICAL | | | | | | CENTER - | | | | | | LABORATORY | | + + + + + + | Absolute | 3.40 | 1.80 - 8.50 | [facility] | [...] | Absolute | 0.10 | 0.00 - 0.10 | [facility] | [...] + | [facility] | [address] | [place] | [phone] | | [facility] | | [address] | | | - LABORATORY | | | | + + + + + Lactate Dehydrogenase (02/14/2016 11:03 AM PDT) + +---------+ + + + | Component | Value | Ref Range | Performed | Pathologist | | | | | At | Signature | + +---------+ + + + | LDH TOTAL | 208 (H) | 91 - 180 U/L | [facility] | | | | | | [facility] [address] | [place] | [phone] | | [facility] | | [address] | | | - LABORATORY | | | | + + + + + PSA, Diagnostic (02/14/2016 11:03 AM PDT) + + + + + + | Component | Value | Ref Range | Performed | Pathologist | | | | | At | Signature | + + + + + + | PSA | 10.25 (H) | <=4.00 ng/mL | [facility] | | | | [...] [address] | [place] | [phone] | | [facility] | | [address] | | | - LABORATORY | | | | + + + + + documented in this encounter Visit Diagnoses + + | Diagnosis | + + | CA prostate, adenoca (HCC) - Primary Malignant neoplasm of prostate | + + | Acquired hemolytic anemia (HCC) Acquired hemolytic anemia, unspecified | + + | Iron deficiency anemia due to chronic blood loss Iron deficiency anemia secondary to | | blood loss (chronic) | + + | Personal history of malignant neoplasm of prostate | + + documented in this encounter
--- OUTSIDE RECORDS SUMMARY | ~2019-12-09 | XMS | Encounter Summary ---
Demographics + + + | Address | [address] | | | [place] [address] | + + + | Home Phone | | + + + | Preferred Language | Unknown | + + + | Marital Status | | + + + | Jain Affiliation | 1041 | + + + | Race | Unknown | + + + | Ethnic Group | Unknown | + + + Author + + + | Author | [facility] | | | and [place] | + + + | Organization | [facility] | | | and [place] | + + + | Address | Unknown | + + + | Phone | Unavailable | + + + Support + + + + + | Name | Relationship | Address | Phone | + + + + + | Lesia Castaneda | ECON | [address] | | | | | [place] [address] | | + + + + + | Rosina Castaneda | ECON | Unknown | | + + + + + | Sandy Zamora | ECON | [address] | | | | | [place] | | | | | [address] | | + + + + + Care Team Providers + +------+ + | Care In Class Special Education Teacher Name | Role | Phone | + +------+ + PCP | Unavailable | + +------+ + Encounter Details +--------+ + + + + | Date | Type | Department | Care Team | Description | +--------+ + + + + | 02/28/ | Hospital | [facility] | Xavi Ballesteros, | | | 1995 | Encounter | MED CTR XRAY [address] | MD [address] [facility] | | | | | [place] | [place] | | | | | [place] [address] | [address] | | | | | [phone] | | | +--------+ + + + [...] [place] | | | | | | [address] | | | | | | | | +--------+---------+ + + + documented as of this encounter Visit Diagnoses Not on filedocumented in this encounter"
--- OUTSIDE RECORDS SUMMARY | ~2019-12-09 | XMS | Encounter Summary ---
Demographics + + + | Address | [address] | | | [place] [address] | + + + | Home Phone | | + + + | Preferred Language | Unknown | + + + | Marital Status | | + + + | Yazdanism Affiliation | 1041 | + + + | Race | Unknown | + + + | Ethnic Group | Unknown | + + + Author + + + | Author | [facility] | | | and [place] | + + + | Organization | [facility] | | | and [place] | + + + | Address | Unknown | + + + | Phone | Unavailable | + + + Support + + + + + | Name | Relationship | Address | Phone | + + + + + | Lesia Castaneda | ECON | [address] | | | | | [place] [address] | | + + + + + | Rosina Castaneda | ECON | Unknown | | + + + + + | Sandy Zamora | ECON | [address] | | | | [place] | | | | | [address] | | + + + + + Care Team Providers + +------+ + | Care Junior Designer Name | Role | Phone | + +------+ + | Jerome Ray | PCP | | | MD | | | + +------+ + Encounter Details +--------+ + + + + | Date | Type | Department | Care Team | Description | +--------+ + + + + | 09/15/ | Orders Only | [facility] | Demond Castellon | CA prostate, adenoca | | 2020 | | [facility] | MD [address] | (HCC) (Primary Dx) | | | | ONCOLOGY CLINIC [address] | [facility] | | | | | [facility] | [place] [address] | | | | | [place] [address] | [phone] | | | | | [phone] | | | +--------+ + + + [...] | 02/01/ | Office | Cardiology | ElleJazlyn, | | | 2020 | Visit | | MD Vikram RICARDO | | | | | | [place] | | | | | | [address] | | | | | | | | +--------+---------+ + + + + +------+--------+ + + | Name | Type | Priori | Associated Diagnoses | Order Schedule | | | | ty | | | + +------+--------+ + + | PSA, Diagnostic | Lab | Routin | CA prostate, | Expected: | | | | e | adenoca (HCC) | 09/17/2019, Expires: | | | | | | 09/15/2020 | + +------+--------+ + + documented as of this encounter Visit Diagnoses + + | Diagnosis | + + | CA prostate, adenoca (HCC) - Primary Malignant neoplasm of prostate | + + documented in this encounter"
--- OUTSIDE RECORDS SUMMARY | ~2019-12-09 | XMS | Encounter Summary ---
Demographics + + + | Address | [address] | | | [place] [address] | + + + | Home Phone | | + + + | Preferred Language | Unknown | + + + | Marital Status | | + + + | Episcopalian Affiliation | 1041 | + + + | Race | Unknown | + + + | Ethnic Group | Unknown | + + + Author + + + | Author | [facility] | | | and [place] | + + + | Organization | [facility] | | | and [place] | + + + | Address | Unknown | + + + | Phone | Unavailable | + + + Support + + + + + | Name | Relationship | Address | Phone | + + + + + | Lesia Castaneda | ECON | [address] | | | | | [place] [address] | | + + + + + | Rosina Castaneda | ECON | Unknown | | + + + + + | Sandy Zamora | ECON | [address] | | | | [place] | | | | | [address] | | + + + + + Care Team Providers + +------+ + | Care Wheel Molder Name | Role | Phone | + +------+ + | Sergio Thompson MD | PCP | | + +------+ + Reason for Visit +--------+--------+ + | Reason | Onset | Comments | | | Date | | +--------+--------+ + | Other | 08/06/ | | | | 2016 | | +--------+--------+ + Encounter Details +--------+ + + + + | Date | Type | Department | Care Team | Description | +--------+ + + + + | 08/06/ | Telephone | [facility] | Demond Castellon | Other | | 2015 | | MED CTR MED[facility] | MD [address] | | | | | ONCOLOGY CLINIC [address] | [facility] | | | | | [address] [place] | [place] [address] | | | | | [place] [address] | [phone] | | | | | [phone] | | | +--------+ + + + [...] this encounter Miscellaneous Notes Telephone Encounter - Danelle Rogers RN - 08/07/2015 10:12 AM PDTHad questions regarding t he BMBX that is schedule on 08/16/[address] Castellon. He has been reading information [employer] and had several questions regarding the procedure. Answered all questions and concerns w ith the Demond and verbalized knowledge. He will come in on 08/16/15 for labs before his BMBX. elephone Encounter - Brigid Vides - 08/07/2015 9:17 AM PDTJames needs to speak with the nurse. He states he h as some questions regarding his upcoming BMBX. He can be reached at [phone]. Electronic ally signed by Brigid Vides at 08/07/2015 9:18 AM PDTdocumented in this encounter Plan of Treatment +--------+---------+ + + + | Date | Type | Specialty | Care Team | Description | +--------+---------+ + + + | 02/01/ | Office | Cardiology | Jazlyn Almeida, | | | 2019 | Visit | | MD Vikram RICARDO | | | | | | [place] | | | | | | [address] | | | | | | | | +--------+---------+ + + + documented as of this encounter Visit Diagnoses Not on filedocumented in this encounter"
--- OUTSIDE RECORDS SUMMARY | ~2019-12-09 | XMS | Encounter Summary ---
Demographics + + + | Address | [address] | | | [place] [address] | + + + | Home Phone | | + + + | Preferred Language | Unknown | + + + | Marital Status | | + + + | Yarsani Affiliation | 1041 | + + + | Race | Unknown | + + + | Ethnic Group | Unknown | + + + Author + + + | Author | [facility] | | | and [place] | + + + | Organization | [facility] | | | and [place] | + + + | Address | Unknown | + + + | Phone | Unavailable | + + + Support + + + + + | Name | Relationship | Address | Phone | + + + + + | Lesia Castaneda | ECON | [address] | | | | | [place] [address] | | + + + + + | Rosina Castaneda | ECON | Unknown | | + + + + + | Sandy Zamora | ECON | [address] | | | | | [place] | | | | | [address] | | + + + + + Care Team Providers + +------+ + | Care Head School Custodian Name | Role | Phone | + +------+ + | Jerome Ray | PCP | | | MD | | | + +------+ + Encounter Details +--------+ + + + + | Date | Type | Department | Care Team | Description | +--------+ + + + + | 07/08/ | Imaging | [facility] | Provider, | | | 2020 | Exam | [facility] | MD [address] | | | | | IMAGING [address] | | | | | [address] | [place] [address] | | | | | [place] [address] | | | | | | [phone] | | | +--------+ + + + [...] 2 Glasses of wine | 2.0 | Alcoholic | | | 0 Standard drinks | | Drinks/day: once a | | | or equivalent | | week | + + +---------+ + + [...] [place] | | | | | | [address] | | | | | | | | +--------+---------+ + + + documented as of this encounter Procedures + +--------+ + + + | Procedure Name | Priori | Date/Time | Associated Diagnosis | Comments | | | ty | | | | + +--------+ + + + | XR HIP RIGHT 2-3 | Routin | 04/26/2019 | | Results for this | | VIEWS | e | 12:00 AM | | procedure are in the | | | | PST | | results section. | + +--------+ + + + documented in this encounter Results XR Hip Right 2-3 Views (04/26/2019 12:00 AM PST) + + | Specimen | + + | | + + + + + | Narrative | Performed At | + + + | External films for comparison only | [facility] | | | | | No results will be in the chart. | | + + + + +---------+ + + | Performing | Address | City/State/Zipcode | Phone Number | | Organization | | | | + +---------+ + + | [facility] | | | | + +---------+ + + documented in this encounter Visit Diagnoses Not on filedocumented in this encounter"
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
--- OUTSIDE RECORDS SUMMARY | ~2019-12-09 | XMS | Encounter Summary ---
Demographics + + + | Address | [address] | | | [place] [address] | + + + | Home Phone | | + + + | Preferred Language | Unknown | + + + | Marital Status | | + + + | Restoration Affiliation | 1041 | + + + | Race | Unknown | + + + | Ethnic Group | Unknown | + + + Author + + + | Author | [facility] | | | and [place] | + + + | Organization | [facility] | | | and [place] | + + + | Address | Unknown | + + + | Phone | Unavailable | + + + Support + + + + + | Name | Relationship | Address | Phone | + + + + + | Lesia Castanead | ECON | [address] | | | | | [place] [address] | | + + + + + | Rosina Castaneda | ECON | Unknown | | + + + + + | Sandy Zamora | ECON | [address] | | | | | [place] | | | | | [address] | | + + + + + Care Team Providers + +------+ + | Care Glue Cook Name | Role | Phone | + +------+ + PCP | Unavailable | + +------+ + Encounter Details +--------+ + + + + | Date | Type | Department | Care Team | Description | +--------+ + + + + | 01/29/ | Hospital | [facility] | | | | 2006 - | Encounter | [facility] | | | | | | CENTER [address] | | | | 02/22/ | | [place] | | | | 2006 | | [address] | | | | | | [phone] | | | +--------+ + + + [...] | | | | | [place], [place] | | | | | | [address] | | | | | | | | +--------+---------+ + + + documented as of this encounter Visit Diagnoses Not on filedocumented in this encounter"
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
--- OUTSIDE RECORDS SUMMARY | ~2019-12-09 | XMS | Encounter Summary ---
Demographics + + + | Address | [address] | | | [place] [address] | + + + | Home Phone | | + + + | Preferred Language | Unknown | + + + | Marital Status | | + + + | Evangelical Affiliation | 1041 | + + + | Race | Unknown | + + + | Ethnic Group | Unknown | + + + Author + + + | Author | [facility] | | | and [place] | + + + | Organization | [facility] | | | and [place] | + + + | Address | Unknown | + + + | Phone | Unavailable | + + + Support + + + + + | Name | Relationship | Address | Phone | + + + + + | Lesia Castaneda | ECON | [address] | | | | | [place] [address] | | + + + + + | Rosina Castaneda | ECON | Unknown | | + + + + + | Sandy Zamora | ECON | [address] | | | | [place] | | | | | [address] | | + + + + + Care Team Providers + +------+ + | Care Water Main Pipe Layer Name | Role | Phone | + +------+ + | Jerome Ray | PCP | | | MD | | | + +------+ + Reason for Visit +---------+--------+ + | Reason | Onset | Comments | | | Date | | +---------+--------+ + | Results | 10/07/ | | | | 2020 | | +---------+--------+ + Encounter Details +--------+ + + + + | Date | Type | Department | Care Team | Description | +--------+ + + + + | 10/07/ | Telephone | [facility] | Demond Castellon | Results | 2019 | | MED [facility] | MD [address] | | | | | ON[facility]OGY CLINIC [address] | [address] | | | | | [address] | [place] [address] | | | | | [place] [address] | [phone] | | | | | [phone] | | | +--------+ + + + [...] this encounter Miscellaneous Notes Telephone Encounter - Taylor Cabrera RN - 10/08/2019 2:02 PM PDTCall to Demond and prasanna lie him his PSA and let him know that Dr. Castellon states this is good news and PSA remain s stable. He verbalizes understanding. Electronically signed by Taylor Cabrera RN at 0 10/08/2019 2:02 PM PDTTelephone Encounter - Taylor Cabrera RN - 10/08/2019 12:54 PM P [facility]TCall to [facility], they are faxing results now, verbalized value of PSA is 5.23. Elect ronically signed by Taylor Cabrera, RN at 10/08/2019 12:55 PM PDTTelephone Encounter - Solis England - 10/08/2019 11:48 AM PDTPt called [facility] the request of Dr. Castellon and he has not heard results. He would like a call back please an d states it's okay to give info to or leave message. [phone] signed by Solis England at 10/08/2019 11:50 AM PDTdocumented i n this encounter Plan of Treatment +--------+---------+ + + + | Date | Type | Specialty | Care Team | Description | +--------+---------+ + + + | 02/01/ | Office | Cardiology | Jazlyn Almeida, | | | 2019 | Visit | | MD [address] | | | | | | [place] | | | | | | [address] | | | | | | | | +--------+---------+ + + + documented as of this encounter Visit Diagnoses Not on filedocumented in this encounter"
--- OUTSIDE RECORDS SUMMARY | ~2019-12-09 | XMS | Encounter Summary ---
Demographics + + + | Address | [address] | | | [place] [address] | + + + | Home Phone | | + + + | Preferred Language | Unknown | + + + | Marital Status | | + + + | Baptism Affiliation | [id number] | + + + [...] + | Lesia Rose | ECON | [address] | | | | | [place] [address] | | + + + + + | Rosina Rose | ECON | Unknown | | + + + + + | Sandy Zamora | ECON | [address] | | | | | [place] | | | | | [address] | | + + + + + Care Team Providers + +------+ + | Care Executive Marketing Assistant Name | Role | Phone | + +------+ + | Imer Thompson MD | PCP | | + +------+ + Encounter Details +--------+ + + + + | Date | Type | Department | Care Team | Description | +--------+ + + + + | 11/18/ | Hospital | [facility] | Ronnie Man | Closed right hip | | 2016 - | Encounter | [facility] [address] | MD Rupa [address] | fracture, initial | | | | [place], | [address] [place] | encounter (HCC) | | 11/21/ | | [place] [id number] | [place] [address] | (Primary Dx); | | 2015 | | [phone] | [phone] | Cerebrovascular | | | | | | accident (CVA) due | | | | | | to thrombosis of | | | | | | right carotid artery | | | | | | (HCC); Low | | | | | | hemoglobin | +--------+ + + + + Social [...] + + + | Blood Pressure | 111/56 | 11/22/2015 7:46 AM | | | | | PDT | | + + + + + | Pulse | 70 | 11/22/2015 7:46 AM | | | | | PDT | | + + + + + | Temperature | 37.1 C (98.8 F) | 11/22/2015 7:46 AM | | | | | PDT | | + + + + + | Respiratory Rate | 16 | 11/22/2015 7:46 AM | | | | | PDT | | + + + + + | Oxygen Saturation | 95% | 11/22/2015 7:46 AM | | | | | PDT | | + + + + + | Inhaled Oxygen | - | - | | | Concentration | | | | + + + + + | Weight | 80.3 kg (177 lb 1.6 | 11/20/2015 3:00 AM | | | | oz) | PDT | | + + + + + | Height | 185.4 cm (6' 0.99") | 11/19/2015 8:00 PM | | | | | PDT | | + + + + + | Body Mass Index | 23.37 | 11/19/2015 8:00 PM | | | | | PDT | | + + + + + documented in this encounter Discharge Summaries Louie Ruiz, CHANGE RELEASE MANAGER - 11/22/2015 3:37 PM PDTFormatting of this note might be diffe rent from the original. Medical Passport NAME:Dena Rose : 1930 Gender: male Extended Emergency Contact Information Primary Emergency Contact: Lesia Rose Scott Address: [id number] [place] [id number] Relation: Spouse Secondary Emergency Contact: Lynne Zamora Address: [address] [place] [address] Mobile Relation: Daughter Preferred language: Swedish Retreader needed? No Advance Directives: Information Refused Attending Provider: Ronnie Man,* Insurance: Payor/Plan Subscr Sex Relation Sub. Ins. ID Effective Group Num 1. MEDICARE - ME* DENA ROSE* 1930 Male [id number] 11/23/1995 [address] 2. - TRI* ROESDENA FELIPE* 1930 Male [id number] 04/[birth year]06 [facility] CLAIMS, [address] Hospital Preference: [facility] Personal Health History Allergies Allergen Reactions Sulfa Antibiotics Nausea And Vomiting There is no immunization history on file for this patient. Patient Active Problem List Diagnosis CA prostate, adenoca Stroke (cerebrum) Gastrointestinal hemorrhage, unspecified gastrointestinal hemorrhage type Low hemoglobin CAD (coronary artery disease) Anemia CVA (cerebral vascular accident) S/P coronary artery stent placement Closed right hip fracture, initial encounter Past Medical History Diagnosis Date Carotid stenosis [...] / COLONOSCOPY; Surgeon: Dena More MD; Location: [facility] Hip arthroplasty Right 11/16/2015 Procedure: Right Hemiarthroplasty Hip ; Surgeon: Rayo Mercado MD; Location: [facility] MAIN OR History Social History Marital Status: Spouse Name: N/A Number of Children: N/A Years of Education: N/A Social History Main Topics Smoking status: Former Smoker Quit date: 05/26/1965 Smokeless tobacco: Never Used Alcohol Use: 1.2 oz/week 2 Glasses of wine, 0 Standard drinks or equivalent per week Drug Use: No Sexual Activity: Not on file Other Topics Concern Not on file Social History Narrative Functional Status Transfers Bed to Chair supervision required Chair to Bed supervision required Sit to Stand supervision required Gait Level of [place] : supervision required Assistive Device: 2 wheeled walker (FWW) Distance (feet): 150 Gait Pattern Analysis: 3-point gait Gait Deviations: lizette decreased, double stance time increased, [id number] clearance de creased, limb motion velocity decreased, step length decreased Impairments: strength decreased, impaired balance, decreased flexibility Stairs Stairs, Comment: struggled to step down d/t dec. ROM on (L) knee Number of Stairs: 12 Handrail Location: both sides Level of [place]: supervision required, verbal cues required Assistive Device: none Technique Used: step to step (ascending), step to step (descending) Safety Issues: balance decreased during turns Impairments: strength decreased, impaired balance, decreased flexibility, ROM decreased Dressing Upper Body UB Dressing Assess/Train, Comment: Retrieved clothing from closet/dressed from sitting UB Dressing, Level of [place]: modified independence Assistive Device: none UB Dressing Assess/Train, Position: sitting Lower Body Bathing Diet Diet/Nutrition Prescription: general Swallowing Corrective Lens: Hearing Aid: meshLalito connor Chanel MD - 11/22/2015 3:30 PM PDT [address] [id number] DISCHARGE SUMMARY Francisca MAN MD Patient: DENA ROSE Admitting: RONNIE MAN MR #: [id number] LOC: PT TYPE: Adm Date: 11/19/2015 : 1930 DATE OF : [birth year]. DATE: 11/22/2015. DATE OF ADMISSION: 11/19/2015. DISCHARGE: 11/22/2015. DISCHARGE DIAGNOSES: Right intracapsular hip fracture with right hip replacement by Dr. Foreign carroll 11/15/2015. Postoperative orthostatic hypotension. Postoperative elevated BUN. Po stoperative anemia. Previous cerebrovascular accident with left hemiparesis. Hyperglycemia . HISTORY: This 84-year-old man was struck by a horse and sustained a right displaced intra capsular hip fracture. On 11/16/2015, Dr. Mercado performed a right hemiarthroplasty with e xcellent benefit. He has chronic knee pain, had a postoperative hemoglobin of 8.4, as well as a history of previous stroke. He could not be discharged at this level, since he need ed 2 people with transfers and minimal assistance in and out of bed, and thus was admitted to [facility] inpatient rehabilitation center for further rehabilitation. HOSPITAL COURSE: Overall, the patient did well and was able to be discharged home. He we nt home earlier than I expected, but he had things [place]. Thus , had his family come in, both the and the daughter, and they received training and th ey said they could manage him at this level, and thus he is discharged. On discharge, upper body dressing, modified independent; lower body dressing, minimal assi stance; toileting, standby assistance; in and out of bed, standby assistance; gait 150 feet , modified independent with a front-wheeled walker; toileting, standby assistance. I explained to the patient that the concern was his BUN, which ran in the 21 through 31 ra nge in spite of pushing fluids. However, in checking Dr. Castellon's notes from previous visits, he both has chronic anemia issues as well as chronic renal insufficiency with a BUN that normally runs in the 20-30 range. Thus, on discharge )since he was still a BUN of 3 0. I asked him to have another BUN checked in 2 days with results sent to Dr. Dukes and a followup with Dr. Dukes by mid- next week to make sure this has stabilized or improved. He initially had some orthostatic hypotension and blood pressure dropped 132 systolic to 9 5 with standing, and had some dizziness, but this resolved by discharge. He had a hemoglobin 8.4; was up to 9.5 after 2 units of blood. He had a transient drop to 8.9 but, on followup 9.1, with WBC 4.9. On discharge, blood pressure went from 129 lying down to 141 standing, and heart rate went from 76 to 83, so he is well compensated. O2 sat urations 95 percent on room air. The patient has a history of CVA with left hemiparesis, and was mildly weak on the left, b ut overall did well in spite of his history of chronically decreased balance from that. He had some slightly high blood sugars, 131 through 144, while he was here, probably relat ed to stress reaction. He also could need some followup on that. DISCHARGE MEDICATIONS: Tylenol 1000 mg daily. Aspirin 81 mg daily. Lipitor 80 mg nightly. Cholecalciferol 5000 units daily. Plavix 75 mg daily. Vitamin B12 500 mcg daily. Vitamin D2 50,000 units once a week. Vitamins daily. Oxycodone 5 mg, dispense #20, one every 3 hours as needed for pain. FOLLOWUP APPOINTMENT: Dr. Dukes in approximately 1 week regarding his rising BUN to norbert e sure it has stabilized in his usual range, plus followup CBC to make sure his hemoglobin has also stabilized, since he has chronic anemia, and then the recent surgery. The patient refused home health, so this was not obtained, but the and daughter will take the patient to the local blood draw center to get a blood draw on Friday, and results to Dr. Dukes. W RUPA MAN MD Dictated by Francisca MAN MD 11/22/2015 15:30:35 Transcribed on 11/23/2015 09:18:50 by rich job# [id number] Confirmation #: [id number] cc: IMER DENA DUKES MD documented in this encounter Discharge Instructions AttachmentsThe following attachments cannot be sent through Care Everywhere.HIP FRACTURE OLSEN RGERY, DISCHARGE INSTRUCTIONS FOR (NIGERIEN)documented in this encounter Medications at Time of [...] documented as of this encounter Progress Notes Ronnie Man MD - 11/21/2015 9:52 AM PDTSummary: Having knee pain treated wi Tylenol, on celebrex at home for this. Otherwise doing well. BUN slightly high, hgb stab le. O: He is awake, alert. He gives good effort and appears to be an accurate historian. HEENT: Tongue protrudes slightly to left on protrusion and he has a slight left fac ial droop, but no altered sensation in the face. LUNGS: Clear. ABDOMEN: Normal bowel sounds. No mass or tenderness appreciated. EXTREMITIES: Left knee bends to about 90 degrees and slightly warm but not swollen. Right hip dressing in p lace, it was not removed. 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 Muscle strength on the right side 4+, left 4. Right hip 2, knee 4, ankle 4. Left lower extremity: 4/5. Sensory evaluation normal to light touch in upp er and lower extremities. MENTAL STATUS: Oriented times 3 and follows two-step commands. IMPRESSION: Decreased activities of daily living and mobility due to left intracapsular hip fracture with hip replacement, postoperative significant anemia, chronic knee pain, w ith orthostatic hypotension plus a previous stroke with some mild left-sided residuals. Support hose are in place. Thus, he is benefiting from a short stay in inpatient rehabi litation. He needs physical therapy and occupational therapy, addiction social worker, physiatric and nursing intervention. Right intracapsular hip fracture with right hip replacement by Dr. Mercado 11/16/2015. H e is not yet antigravity on the right leg, so he has problems with getting in and out of b ed, but is improving with that and toileting. Orthostatic hypotension. Initially blood pressure dropped from 132 to 95 with standing, previously was symptomatic. He is improving now, but has bilateral support hose on. Co ntinue to monitor, but expect it to improve. BUN 21. This is improving, contributing to his orthostatic hypotension. F/u tomorrow. Anemia. Hemoglobin improved from 8.4 to 9.5 after 2 units of blood. Is still having dre e orthostasis. F?u tomorrow. History of cerebrovascular accident with left hemiparesis. He has some mild coordinatio n issues on the left and reports chronically decreased balance. Thus, he has some bilatera l problems that will need a little extra timein rehabilitation to achieve goals. Hyperglycemia. Last blood sugar 134. Probably a stress response. Needs to be followed , f/u tomorrow.. PLAN: A comprehensive plan of rehabilitation has been instituted with PT, OT, social se rvices, physiatric and nursing intervention. PT is working on bed mobility, transfers, g ait, balance and especially watching for any balance issues and coordination because of hi s previous little stroke and weakness on the right leg. OT is working on ADLs and self cares and compensatory strategies. PT is also working with a banister and stairs with a cane since he goes home to a home with 9 steps in. We have nursing working the bowel an d bladder program and doing well. Psychiatry is following for general medical management and rehabilitation directions. GOALS: Independent safe bed mobility, transfers, household ambulation, independent feed ing, grooming and hygiene as well as upper and lower extremity dressing, toileting and deisy let transfers. Hopefully, he can even help with light homemaking, meal preparation. BU N normalized. Hemoglobin stable to improved. Blood sugar normalized. Able to do 9 step s with a banister and a cane. PROGNOSIS: Good. ESTIMATED LENGTH OF STAY: 7-9 days.>25 minutes spent on patient care today. documented in this encounte r H&P Notes Ronnie Man MD - 11/20/2015 4:42 PM PDT [address] [id number] HISTORY AND PHYSICAL W RUPA MAN MD Patient: DENA ROSE Admitting: RONNIE Chavez UMESH MR #: [id number] LOC: PT TYPE: Adm Date: 11/19/2015 : 1930 HISTORY AND PHYSICAL, POST ADMISSION PHYSICIAN EVALUATION, OVERALL PLAN OF CARE DATE OF : 1930 DATE: Today is 11/20/2015. CHIEF COMPLAINT: Right hip fracture. PRINCIPAL ILLNESS: This 84-year-old man was tripped by his horse and sustained a right di splaced intracapsular hip fracture. Thus, on 11/16/2015, Dr. Mercado performed a right desean arthroplasty with excellent benefit. He also has some chronic problems with his left knee, had a postoperative hemoglobin of 8.4, as well as a previous stroke. He could not be dis charged home at that level of function, needing at times 2 people to stand and minimal assi stance in and out of bed and with toileting. Thus, he was admitted to [facility] [place] for further rehabilitation. This is a history and physical and post-admission physician evaluation. The patient has done very well since being in inpatient rehabilitation for body dressing, standby assistance, lower body dressing minimal assistance, toileting minimal assistance, t oilet transfers minimal assistance. In and out of bed has improved from minimal assistance to standby assistance and gait 50 feet, but limited by his left knee pain. Blood pressure 124/59, heart rate 76, O2 saturations 97 percent on room air. Sodium sligh tly low at 134, potassium 3.9, BUN slightly high at 21, but improved. Creatinine 1.17, glu cose slightly high at 134. WBC normal at 5.9, hemoglobin up to 9.5 from 8.4. REVIEW OF SYSTEMS: Constitutional: No fever or chills, no weight gain or weight loss. H EENT: No problem with hearing, vision, or swallowing. Endocrine: No history of diabetes, but has recent hyperglycemia. Skin: No unusual bruising or bleeding. Musculoskeletal: He has had left hip screw fixation, left knee replacement. The left knee is chronically wea k. Neurologic: Previous stroke in 2013, mainly with some left-sided weakness and now some chronically decreased balance. Psychiatric: No psychiatric issues. Cardiac: No chest pa in or angina. Pulmonary: No specific pulmonary issues. Genitourinary: No incontinence o f bowel or bladder. Gastrointestinal: No nausea, vomiting, hematemesis, diarrhea or brigh t red blood per rectum. PAST MEDICAL HISTORY: Coronary artery disease with stent, 06/2014. Left hip fracture with cannulated screw fixation. History of prostate cancer. Left total knee replacement. CVA with left hemiparesis, 2013. ALLERGIES: SULFA causes nausea and vomiting. PRESENT MEDICATIONS: Aspirin 81 mg daily. Lipitor 80 mg daily. Plavix 75 mg daily. Colace 200 mg twice daily. Protonix 40 mg in the morning. NEEDED MEDICATIONS: Tylenol. Dulcolax. Tums. Dilaudid. Lactulose. Milk of magnesia. Menthol. Zofran. Oxycodone. Chloraseptic. MiraLax. Senokot. SOCIAL HISTORY: Prior to this, he was living with his in [place], [place]. 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 His has vertigo. There are 9 steps into the house. PT is working with a banister and a cane on steps as part of his training. PHYSICAL EXAMINATION: GENERAL: He is awake, alert. He gives good effort and appears to be an accurate historia n. HEENT: EOMI. PEERL. TMs not evaluated. Throat: Normal gag, no erythema. Tongue protr udes slightly to left on protrusion and he has a slight left facial droop, but no altered s ensation in the face. LUNGS: Clear. ABDOMEN: Normal bowel sounds. No mass or tenderness appreciated. EXTREMITIES: Left knee bends to about 90 degrees and slightly warm but not swollen. NEUROLOGIC: Cranial nerves 2-12 are grossly intact except for a mild right central 7th an d 12th nerve palsy. Muscle strength on the right side 4+, left 4. Right hip 2, knee 4, an kle 4. Left lower extremity: 4/5. Sensory evaluation normal to light touch in upper and l ower extremities. Cerebellar exam: Rapid alternating movements, slightly decreased on th e left arm and leg. MENTAL STATUS: Oriented times 3 and follows two-step commands. IMPRESSION: Decreased activities of daily living and mobility due to left intracapsular h ip fracture with hip replacement, postoperative significant anemia, with orthostatic hypote nsion plus a previous stroke with some mild left-sided residuals. He also has some mild an emia and blood pressure dropped from 132 to 95 with standing, thus he has orthostatic hypo tension. Support hose are in place. Thus, he is benefiting from a short stay in inpatient rehabilitation. He needs physical therapy and occupational therapy, addiction social worker, physi atric and nursing intervention. Right intracapsular hip fracture with right hip replacement by Dr. Mercado 11/16/2015. He has probably got antigravity on the right leg, so he has problems with getting in and out o f bed, but is improving with that and toileting. Orthostatic hypotension. Blood pressure dropping from 132 to 95 with standing, previously was symptomatic. He is improving now, but has bilateral support hose on. BUN 21. This is improving, contributing to his orthostatic hypotension. Anemia. Hemoglobin improved from 8.4 to 9.5 after 2 units of blood. Is still having some orthostasis. History of cerebrovascular accident with left hemiparesis. He has some mild coordination issues on the left and reports decreased balance. Thus, he has some bilateral problems that will need a little extra time in rehabilitation to achieve goals. Hyperglycemia. Last blood sugar 134. Probably a stress response. Needs to be followed. PLAN: A comprehensive plan of rehabilitation has been instituted with PT, OT, social serv ices, physiatric and nursing intervention. PT is working on bed mobility, transfers, gait, balance and especially watching for any balance issues and coordination because of his pre vious little stroke and weakness on the right leg. OT is working on ADLs and self cares a nd compensatory strategies. PT is also working with a banister and stairs with a cane sinc e he goes home to a home with 9 steps in. We have nursing working the bowel and bladder pr ogram and doing well. Psychiatry is following for general medical management and rehabili tation directions. GOALS: Independent safe bed mobility, transfers, household ambulation, independent feedin g, grooming and hygiene as well as upper and lower extremity dressing, toileting and toilet transfers. Hopefully, he can even help with light homemaking, meal preparation. BUN norm alized. Hemoglobin stable to improved. Blood sugar normalized. Able to do 9 steps with a banister and a cane. PROGNOSIS: Good. ESTIMATED LENGTH OF STAY: 7-10 days. POST ADMISSION PHYSICIAN EVALUATION: Compared to preadmission screen, the patient is diamond lar to what I expected, but the original history and physical did not note his previous mil d stroke with some chronic balance issues. It is safe to initiate therapies because of the right hip weakness and left knee pain. He is at a high fall risk. This admission is reasonable and necessary, as he has both medical and functional needs as described previously in this note. The medical history is reviewed and notable for the hip fracture, postoperative anemia wit h the left knee pain that is a limiting factor. He also has newly found orthostatic hypoten zahida. This is to validate the patient's condition on admission and I have described his clinical rehabilitation complications and adverse medical conditions he is at risk for, due to his comorbidities as well as the rigors of rehabilitation program with a specific plan to avoid them. Mainly with him, it is his right hip weakness, left knee weakness, with orthostatic hypotension, so a very high fall risk. FUNCTIONAL GOALS: Predicted as under goals. OVERALL PLAN OF CARE: This individualized plan of care is developed today, seeing the taz marquez, reading old and new notes and discussing with therapies. ESTIMATED LENGTH OF STAY: 7-10 days. MEDICAL PROGNOSIS: Good. ANTICIPATED INTERVENTIONS: Described previously in notes under impression and plan. FUNCTIONAL OUTCOMES: Described previously in this note as under goals. DISCHARGE DESTINATION: Will be home with his , who has vertigo, to [place], [place]. Praveena e steps into their home with a banister being put up. THERAPIES: PT 1-1/2 hours a day, 7 days a week while he is here. OT 1-1/2 hours a day, 6 of every 7 days a week while he is here. Duration will be 7-10 days. However, this care plan will be updated as the patient's condition changes and input from the interdisciplinary team. We will do a team conference tomorrow. We have discussed the s pecifics. W RUPA MAN MD Dictated by Francisca MAN MD 11/20/2015 16:42:07 Transcribed on 11/20/2015 20:04:27 by [facility] job# [id number] Confirmation #: [id number] cc: IMER DENA THOMPSON Electronically signed by Ronnie Man MD at 9:36 AM PDTdocumented in this encounter Miscellaneous Notes Plan of Care - Tabitha Alcantar COTA - 11/22/2015 4:54 PM PDTProblem: Patient Care Overview (Adult) Goal: Care Team Goals & Evaluation PROBLEM-RELATED GOALS: Pt will have a pain level of 3/10 by 11/24/15 Pt will not have any falls by 11/24/15 Pt will cont to have intact CMS by 11/22/15 4. Pt will be Mod I in transfers and ambulation by 11/25/15. STRATEGY TO ACHIEVE GOALS: Medicate pt as needed and per orders for pain control Frequent reminders to use call light and keep call light in reach at all times Encourage ambulation and ROM -Full participation in PT session on functional mobility training. RESTRAINT-RELATED GOALS: STRATEGIES TO ACHIEVE RESTRAINT GOALS: Outcome: Adequate for Discharge Date Met: 11/22/15 Occupational Therapy Daily Treatment Note Patient Information Patient Name: Dena Rose Date of : 1930 Age: 84 y.o. Precautions/Limitations: falls, right posterior hip precautions Left Upper Extremity Weight-Bearing: full weight-bearing Right Upper Extremity Weight-Bearing: full weight-bearing Left Lower Extremity Weight-Bearing: full weight-bearing Right Lower Extremity Weight-Bearing: weight-bearing as tolerated Start Time: 1345 Stop time: 1440 Time Calculation: 55 minutes Missed Treatment Time: minutes Total Treatment Time: 55 minutes TimedTreatment Code Minutes: 55 minutes Frequency: (6-7 x week) Subjective: " The doctor said I can go home this afternoon with my family " Objective: Pt seen for IADL/light cooking task/sandwhich making and L/B dressing/donning s hoes w/ A/E. Completed ambulation to/from refrigerator SBA w/ fww,retrieved food/placed in f ww basket. Ambulated to kitchen table,t/f'd>chair and completed [employer] making tasks at tab le w/ /daughter providing SBA/cues. Pt donned shoes w/ elastic shoe laces w/ SBA/cues us ing social service liaison and long handle shoe horn from sitting at EOB. Pt very pleased w/ elastic shoe l aces. Education: Discussed A/E needs for br at home Treatment Provided: Pt seen for IADL/light cooking/sandwhich making to progress pt to prio r level of function and L/B dressing task/donning shoes w/ A/E Patient Status/Goals Reflects last filed data of patient status; may be from multiple contributors. ADLs Pt was able to brady shoes w/ elastic shoe laces w/ SBA/cues using social service liaison and long handle s hoe horn Donned shoes w/social service liaison and long handle shoe horn from sitting at EOB LB, Level of [place]: set up required, supervision required, verbal cues required Assistive Device: elastic laces, long-handled shoe horn, social service liaison LB Dressing Assess/Train, Position: sitting LB Dressing Assess/Train, Impairments: decreased flexibility, ROM decreased, strength decre ased IADLs Pt participated in light cooking meal prep gathering food,placing inside basket of fww ambu lating to table/placing food items on table. Assembled sandwhich from sitting at tab w/ wi fe and daughter providing supervision Meal Preparation/Planning Training, OT Eval Level Of [place]: Meal Prep: supervision/set-up Physical Assist/Nonphysical Assist: Meal Prep: none Assistive Device: standard walker (with basket hanging from fww to carry food items) STG Goals [place] Level: supervision required (Stall shower) Time to Achieve: 4 days Goal Status: met Grooming Goal, [place] Level: modified independence Time to Achieve: 4 days Goal Status: met Bathing Goal, [place] Level: supervision required Time to Achieve: 4 days Goal Status: met Toileting Goal, [place] Level: supervision required Time to Achieve: 4 days Goal Status: met UB Dressing Goal, [place] Level: supervision required Time to Achieve: 4 days Goal Status: met LB Dressing Goal, [place] Level: supervision required Time to Achieve: 4 days Goal Status: met IADL Goal: Light snack/meal prep w/ supervision. Time to Achieve: 4 days Goal Status: met OT Additional Goal #1: Toilet transfer w/ supervision. Time to Achieve: 4 days Goal Status: met LTG Goals Transfer Training Goal, Activity Type: walk-in shower [place] Level: supervision required Assistive Device: 2 wheeled walker (FWW) Time to Achieve: 1 wk Goal Status: met Grooming Goal, [place] Level: independent Time to Achieve: 1 wk Goal Status: not met Bathing Goal, [place] Level: supervision required Time to Achieve: 1 wk Goal Status: met Toileting Goal, [place] Level: modified independence Time to Achieve: 1 wk Goal Status: continued, progressing toward goal UB Dressing Goal, [place] Level: independent Time to Achieve: 1 wk Goal Status: not met LB Dressing Goal, [place] Level: modified independence Time to Achieve: 1 wk Goal Status: not met IADL Goal: Light snack/meal prep w/ mod I. Time to Achieve: 1 wk Goal Status: not met OT Additional Goal #1: Toilet transfer w/ mod I. Goal Status: not met Time to Achieve: 1 wk FIM: FIM Self Care Dressing - Lower Body: 5 Dressing Lower Score Evidence: 5 Safety Supervision, 5 Verbal Cues, , 6 Hand Scudder, 6 long leal dle shoe horn, 6 Extra Time Assessment: Pt demo good safety awareness annd completed light cooking task/sandwhich makin g w/supervision and L/B dressing w/ SBA/cues using A/E. Met all STG and some LTG. Family tr earline was provided to pt's and daughter and both reported they have purchased grab bar s for step in shower in br at home,shower chair,social service liaison,sock aid and long handle shoe horn. Stated they have already removed throw rugs from floors and have clear open pathways for saf e ambulation w/ fww throughout house. Pt's verbalized understanding that pt will requir e supervision for step in showers t/f's and bathing tasks. Pt will d/c home today w/ an d daughter whom will be assisting pt as needed at home. Pt will be followed by therapy Occupational Therapy Anticipated Discharge Needs are: (TBD) Have the anticipated discharge needs changed? no Post discharge occupational therapy recommendation: Home w/ family assisting pt as needed and HH therapy Plan for next treatment: 1P,NK,MLM to RLE Electronically signed by: MISSY Ibrahim, 11/22/2015 16:16 lan of Care - For leidairvin KATY Feliz - 11/22/2015 4:14 PM PDTProblem: Discharge Planning Goal: Patient will be discharged in a safe manner Outcome: Adequate for Discharge Date Met: 11/22/15 Patient is being discharged home today in the care of his and daughter after family te aching. Patient has all necessary medical equipment and he declined to have home health ser vices. The patient will follow up with his primary care provider next week and will have la b work done this Friday. The patient received his medicare important message and his Rehab Medical Passport.Electronically signed by: KATY Agarwal 11/22/2015 16:14 lan of [place] sher - Selma Zayas RN - 11/22/2015 3:58 PM PDTPlan of care reviewed, appropriate for shanelle ent status. Electronically signed by: Selma Zayas RN 11/22/2015 15:58 lan of Care - Racehl Alamo, PT - 11/22/2015 3:42 PM PDTProblem: Patient Care Overview (Adult) Goal: Care Team Goals & Evaluation PROBLEM-RELATED GOALS: Pt will have a pain level of 3/10 by 11/24/15 Pt will not have any falls by 11/24/15 Pt will cont to have intact CMS by 11/22/15 4. Pt will be Mod I in transfers and ambulation by 11/25/15. STRATEGY TO ACHIEVE GOALS: Medicate pt as needed and per orders for pain control Frequent reminders to use call light and keep call light in reach at all times Encourage ambulation and ROM -Full participation in PT session on functional mobility training. RESTRAINT-RELATED GOALS: STRATEGIES TO ACHIEVE RESTRAINT GOALS: Outcome: Improving Physical Therapy Discharge PT Note Patient Information Patient Name: Dena Rose Date of : 1930 Age: 84 y.o. 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 Hor se stepped on his foot causing him to fall backward injuring his R hip. Sustained intracapu lar hip fx, displaced, R. Underwent R hip hemiarthroplasty, posterior approach . Pt is now admitted to in pt rehab to improve functional mobility for safe d/c. PT Diagnosis: Impaired balance, gait instability, ms weakness, difficulty in bed mobility and functional transfers. Start Time: 1119 Stop time: 1227 Time Calculation: 68 minutes Missed Treatment Time: 0 minutes Total Treatment Time: 68 minutes TimedTreatment Code Minutes: 68 minutes Subjective: Received pt resting in bed and agreeable to PT tx. Pt anxious to go home despi te low Hgb, and pt is dehydrated. Orthostatic BP done (see flow sheet). Pt was negative fo r orthostatic hypotension. Pt is wearing JAKE hose. Objective: Treatment Provided: Car transfer training x 1P Min A with verbal cues for correct sequence and technique to maintain spinal precautions. Pt's car seat need to be reclined and (R) LE need to be assisted in the car. Pt did better on car transfers using a step stool. Bed mob ility training supine <--> sit supervision with bed flat to inc.independence. Education: car transfers. Pt return demo and verbalized understanding. Patient Status/Goals: Reflects last filed data of patient status; may be from multiple contributors. Gait Level of [place] : supervision required Assistive Device: 2 wheeled walker (FWW) Distance (feet): 150 Gait Pattern Analysis: 3-point gait Gait Deviations: lizette decreased, double stance time increased, [id number] clearance de creased, limb motion velocity decreased, step length decreased Impairments: strength decreased, impaired balance, decreased flexibility Transfers struggled to sit on a 24" bed height d/t apr.ROM on (L) knee. Bed-Chair, Level of [place]: supervision required Chair-Bed, Level of [place]: supervision required [id number], Assistive Device: 2 wheeled walker (FWW) Sit-Stand, Level of [place]: supervision required Stand-Sit, Level of [place]: supervision required [id number], Assistive Device: 2 wheeled walker (FWW) Car, Level of [place]: minimum assist (75% patient effort), verbal cues required Car, Assistive Device: 2 wheeled walker (FWW) (step stool) Safety Issues: weight-shifting ability decreased, step length decreased Impairments: strength decreased, impaired balance, ROM decreased, decreased flexibility Bed Mobility struggled and was slow tocomplete the task the task. Assistive Device: bed rails Supine to Sit, Level of [place]: modified independence Sit to Supine, Level of [place]: modified independence Safety Issues: decreased use of legs for bridging/pushing Impairments: strength decreased, impaired balance, decreased flexibility, ROM decreased STG GOALS Bed Mobility Goal, Activity Type: supine to sit/sit to supine [place] Level: modified independence Assistive Device: none Time to Achieve: 1 wk Goal Status: met Transfer Training Goal, Activity Type: bed to chair /chair to bed [place] Level: supervision required Assistive Device: 2 wheeled walker (FWW) Time to Achieve: 1 wk Goal Status: met Gait Training Goal, [place] Level: supervision required Assistive Device: 2 wheeled walker (FWW) Distance: 100 Time to Achieve: 1 wk Goal Status: met Stairs Goal, [place] Level: supervision required Assistive Device: none Number of Stairs: 9 Time to Achieve: 1 wk Goal Status: met LTG GOALS Transfer Training Goal, Activity Type: bed to chair /chair to bed [place] Level: modified independence Assistive Device: 2 wheeled walker (FWW) Time to Achieve: by discharge Goal Status: not met Gait Training Goal, [place] Level: modified independence Assistive Device: 2 wheeled walker (FWW) Distance: 150 Time to Achieve: by discharge Goal Status: not met Stairs Goal, [place] Level: modified independence Assistive Device: none Time to Achieve: by discharge Goal Status: not met FIM: FIM Transfers Bed/Chair/Wheelchair: 5 Bed/Chair/WC Score Evidence: 5 Safety Supervision, 5 Verbal Cues FIM Locomotion Walk: 5 Distance Walked (feet): 150 feet Walk Score Evidence: 5 Supervise/150 ft+, 5 Verbal Cues/150 ft+ FIM Modifier DC Locomotion: walk FIM Modifier Walk Distance: 2 50-149 feet Stairs: 5 (12) Stairs Score Evidence: 5 Safety Sup 12-14 Stairs Assessment: Pt progressing towards PT goals. Pt can perform car transfers with Min A and v erbal cues. D/C skilled PT services. Pt will be going home today and will cont.PT through home Health. Physical Therapy Anticipated Discharge Needs are: home with assist, home with home health Have the anticipated discharge needs changed? no Post discharge physical therapy recommendation: Home Health PT. Plan for next treatment: BID, CW 1P FWW, progressive gait, strengthening, stair training. Electronically signed by: RACHEL ALAMO, PT, 11/22/2015 15:41 lan of Care - Selma Marshall RN - 11/22/2015 1:57 PM PDTLate note for 11/21/15 0853: Plan of care reviewed, a ppropriate for patient's status. Electronically signed by: Selma Zayas RN 11/22/2015 13: 58 lan of [place] - Tabitha Alcantar COTA - 11/22/2015 11:48 AM PDTProblem: Patient Care Overview (Adult) Goal: Care Team Goals & Evaluation PROBLEM-RELATED GOALS: Pt will have a pain level of 3/10 by 11/24/15 Pt will not have any falls by 11/24/15 Pt will cont to have intact CMS by 11/22/15 4. Pt will be Mod I in transfers and ambulation by 11/25/15. STRATEGY TO ACHIEVE GOALS: Medicate pt as needed and per orders for pain control Frequent reminders to use call light and keep call light in reach at all times Encourage ambulation and ROM -Full participation in PT session on functional mobility training. RESTRAINT-RELATED GOALS: STRATEGIES TO ACHIEVE RESTRAINT GOALS: Occupational Therapy Daily Treatment Note Patient Information Patient Name: Dena Rose Date of : 1930 Age: 84 y.o. Precautions/Limitations: falls, right posterior hip precautions Left Upper Extremity Weight-Bearing: full weight-bearing Right Upper Extremity Weight-Bearing: full weight-bearing Left Lower Extremity Weight-Bearing: full weight-bearing Right Lower Extremity Weight-Bearing: weight-bearing as tolerated Start Time: 819 Stop time: 929 Time Calculation: 70 minutes Missed Treatment Time: minutes Total Treatment Time: 70 minutes TimedTreatment Code Minutes: 70 minutes Frequency: (6-7 x week) Subjective: " When can I go home " Objective: Pt seen for fxl mobility/ADL training including clothing retrieval from closet,shower,dress and groom. Completed supine>EOB SBQA using bed features,sit>stand SBA wfww and retrieve jeremias thing from closet from standing w/ ww and ambulated to/from step in shower SBA w/ fww. Ac ed in/out of step shower SBA using grab bars,t/f'd>shower chair and bathed fromn sitting w/ SBAcues . Bathed /dressed from sitting using A/E for L/B. Family arrived at [facility] and educated in A/E needs for br a home. Please see below for progress/level of assist. Education: Education provided to pt's family in A/E needs for br at home. Treatment Provided: Self care t/f's and ADL taining to increase safety w/ fxl mobility and ADL independence and progress pt to prior level of function for safe d/c home. Patient Status/Goals Reflects last filed data of patient status; may be from multiple contributors. ADLs Pt seen for ADL training:toileting,shower,dress and goom Bathed from sitting in BSC in step in shower Bathing, Level of [place]: supervision required, verbal cues required Assistive Device: grab bars, hand-held shower head, long-handled sponge (bsc) Bathing Assess/Train, Position: sitting, standing Bathing Assess/Train, Impairments: decreased flexibility, impaired balance Retrieved clothing from closet/dressed from sitting UB Dressing, Level of [place]: modified independence Assistive Device: none UB Dressing Assess/Train, Position: sitting Retrived clothing from closet/dressed L/B using A/E min A/cues LB, Level of [place]: minimum assist (75% patient effort), supervision required, verba rai cues required Assistive Device: social service liaison, sock-aid LB Dressing Assess/Train, Position: sitting, standing LB Dressing Assess/Train, Impairments: decreased flexibility, ROM decreased, strength decre ased Toileting, Level of [place]: set up required, supervision required Assistive Device: raised toilet seat, grab bar Toileting Assess/Train, Position: sitting, standing Toileting Assess/Train, Impairments: decreased flexibility, ROM decreased, strength decreas ed Groomed from standing at sink w/ fww mod I Grooming, Level of [place]: modified independence Assistive Device: none Grooming Assess/Train, Position: standing Grooming Assess/Train, Impairments: decreased flexibility, strength decreased, ROM decrease d Transfers Completed toilet t/f and step in shower t/f SBA/cues Toilet, Level of [place]: supervision required, verbal cues required Toilet, Assistive Device: 2 wheeled walker (FWW), seat riser, grab bars Walk-In Shower, Level of [place]: supervision required, verbal cues required Walk-in shower, Assistive Device: 2 wheeled walker (FWW), commode (3 in 1), grab bars Safety Issues: step length decreased, weight-shifting ability decreased Impairments: decreased flexibility, ROM decreased, strength decreased STG Goals [place] Level: supervision required (Stall shower) Time to Achieve: 4 days Goal Status: met Grooming Goal, [place] Level: modified independence Time to Achieve: 4 days Goal Status: met Bathing Goal, [place] Level: supervision required Time to Achieve: 4 days Goal Status: met Toileting Goal, [place] Level: supervision required Time to Achieve: 4 days Goal Status: met UB Dressing Goal, [place] Level: supervision required Time to Achieve: 4 days Goal Status: met LB Dressing Goal, [place] Level: supervision required Time to Achieve: 4 days Goal Status: continued IADL Goal: Light snack/meal prep w/ supervision. Time to Achieve: 4 days Goal Status: not addressed OT Additional Goal #1: Toilet transfer w/ supervision. Time to Achieve: 4 days Goal Status: met LTG Goals Transfer Training Goal, Activity Type: walk-in shower [place] Level: supervision required Assistive Device: 2 wheeled walker (FWW) Time to Achieve: 1 wk Goal Status: met Grooming Goal, [place] Level: independent Time to Achieve: 1 wk Goal Status: continued, progressing toward goal Bathing Goal, [place] Level: supervision required Time to Achieve: 1 wk Goal Status: met Toileting Goal, [place] Level: modified independence Time to Achieve: 1 wk Goal Status: continued, progressing toward goal UB Dressing Goal, [place] Level: independent Time to Achieve: 1 wk Goal Status: continued, progressing toward goal LB Dressing Goal, [place] Level: modified independence Time to Achieve: 1 wk Goal Status: continued, progressing toward goal IADL Goal: Light snack/meal prep w/ mod I. Time to Achieve: 1 wk Goal Status: not addressed OT Additional Goal #1: Toilet transfer w/ mod I. Goal Status: continued, progressing toward goal Time to Achieve: 1 wk FIM: FIM Transfers Toilet: 5 Toilet Transfer Evidence: 5 Safety Supervision, 5 Verbal Cues, 6 Extra Time, 6 Raised Toil et Seat [place], 6 Grab Bar [place] Tub / Shower: 5 (step in shower) Tub/Shower Score Evidence: 5 Safety Supervision, 5 Verbal Cues, 6 Extra Time (using BSC to sit) FIM Self Care Groomin Grooming Score Evidence: 6 Extra Time Bathin Bathing Score Evidence: 5 Safety Supervison, 5 Verbal Cues, 6 Extra Time, 6 Long Handled Sp onge Dressing - Upper Body: 6 Dressing Upper Score Evidence: 6 Extra Time Dressing - Lower Body: 4 Dressing Lower Score Evidence: 4 Steadying, 5 Apply JAKE, 5 Safety Supervision, 5 Verbal Cue s, 6 Sock Aid, 6 Hand Scudder, 6 Extra Time Toiletin Toileting Score Evidence: 5 Safety Supervision, 5 Verbal Cues, 6 Grab Bar, 6 Extra Time Assessment: Pt progressing toward goals as he completed self cares w supervision however he is anxious to go home. Family educated in A/E needs for br at home and recommended gra bars be installed at entrance/inside step in shower and social service liaison/sock aid,long handle shoe horn f or L/B dressing/agreeable to recommendations. Pt reported his toilet has frame w/ grab bars already. Pt left in room w/ RN at bedside/callight placed w/reach. Occupational Therapy Anticipated Discharge Needs are: (TBD) Have the anticipated discharge needs changed? no Post discharge occupational therapy recommendation: TBD Plan for next treatment: 1P,NK,MLM to RLE Electronically signed by: MISSY Ibrahim, 11/22/2015 11:37 lan of Care - Bernie Goss RN - 11/22/2015 4:21 AM PDTProblem: Patient Care Overview (Adult) Goal: Care Team Goals & Evaluation PROBLEM-RELATED GOALS: Pt will have a pain level of 3/10 by 11/24/15 Pt will not have any falls by 11/24/15 Pt will cont to have intact CMS by 11/22/15 4. Pt will be Mod I in transfers and ambulation by 11/25/15. STRATEGY TO ACHIEVE GOALS: Medicate pt as needed and per orders for pain control Frequent reminders to use call light and keep call light in reach at all times Encourage ambulation and ROM -Full participation in PT session on functional mobility training. RESTRAINT-RELATED GOALS: STRATEGIES TO ACHIEVE RESTRAINT GOALS: Outcome: Improving Goal Evaluation: Patient did not sleep well this noc. He is reporting more pain to right hip, medicated with po Tylenol and oxycodone this noc which helped. Aquacell dressing to right hip with dried d rainage present. Kinesio tape to RLE. He is calling appropriately during noc. Voiding well a nd without difficulty, using urinal during noc. He is still stating his desire to return ike e [facility] and is wanting to know exact expectations so he may start working towards them. lan of Care - Raiza hernandez, Carlos Perez RN - 11/21/2015 8:15 PM PDTProblem: Patient Care Overview (Adult) Goal: Care Team Goals & Evaluation PROBLEM-RELATED GOALS: Pt will have a pain level of 3/10 by 11/24/15 Pt will not have any falls by 11/24/15 Pt will cont to have intact CMS by 11/22/15 4. Pt will be Mod I in transfers and ambulation by 11/25/15. STRATEGY TO ACHIEVE GOALS: Medicate pt as needed and per orders for pain control Frequent reminders to use call light and keep call light in reach at all times Encourage ambulation and ROM -Full participation in PT session on functional mobility training. RESTRAINT-RELATED GOALS: STRATEGIES TO ACHIEVE RESTRAINT GOALS: Outcome: Improving Goal Evaluation: Pt is A&O x4, c/o intermittent right knee pain during the day, refused PO pain pill. Pt wa s free from falls during day shift. CMS intact, following hip precautions. Participating wit h therapy today, SBA with fww with ambulation. Aqua cell dressing to right hip c/d/i. lan of Care - Aguila Justice, CURATOR OF PHOTOGRAPHY AND PRINTS - 11/21/2015 3:56 PM PDTProblem: Patient Care Overview (Adult) Goal: Care Team Goals & Evaluation PROBLEM-RELATED GOALS: Pt will have a pain level of 3/10 by 11/24/15 Pt will not have any falls by 11/24/15 Pt will cont to have intact CMS by 11/22/15 4. Pt will be Mod I in transfers and ambulation by 11/25/15. STRATEGY TO ACHIEVE GOALS: Medicate pt as needed and per orders for pain control Frequent reminders to use call light and keep call light in reach at all times Encourage ambulation and ROM -Full participation in PT session on functional mobility training. 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 Hor se stepped on his foot causing him to fall backward injuring his R hip. Sustained intracapu lar hip fx, displaced, R. Underwent R hip hemiarthroplasty, posterior approach . Pt is now admitted to in pt rehab to improve functional mobility for safe d/c. PT Diagnosis: Impaired balance, gait instability, ms weakness, difficulty in bed mobility and functional transfers. Start Time: 1445 Stop time: 1525 Time Calculation: 40 minutes Missed Treatment Time: 0 minutes Total Treatment Time: 40 minutes TimedTreatment Code Minutes: 40 minutes Subjective: Pt feels he is progressing, with improving mobility, more confident with activi ty. Objective: Treatment Provided: Review of precautions, with pt able to describe positional precautions accurately. Transfer training with cues for alignment and sequencing. Gait training with p t's fww after it has been fitted properly. Gait training to encourage more even step length and stance time. Gait 150' with supervision and verbal cues. After seated rest, stair tra ining with total of 8 stairs, verbal cues provided for technique. Returned to room with fww , seated at edge of bed comfortably, call light given. Education: Precautions, gait and transfer training Patient Status/Goals: Reflects last filed data of patient status; may be from multiple contributors. Gait Level of [place] : supervision required Assistive Device: 2 wheeled walker (FWW) Distance (feet): 150 Gait Pattern Analysis: 3-point gait Gait Deviations: lizette decreased, double stance time increased, limb motion velocity decr eased, step length decreased, stride length decreased, weight-shifting ability decreased, to e-to-floor clearance decreased, urwrc-[id number]-unzkil ratio decreased Impairments: strength decreased, impaired balance, decreased flexibility Stairs struggled to step down d/t dec. ROM on (L) knee Number of Stairs: 8 Handrail Location: both sides Level of [place]: supervision required Assistive Device: none Technique Used: step to step (ascending), step to step (descending) Safety Issues: (.) Impairments: strength decreased, impaired balance, decreased flexibility, ROM decreased Transfers struggled to sit on a 24" bed height d/t dec.ROM on (L) knee. Bed-Chair, Level of [place]: supervision required, verbal cues required Chair-Bed, Level of [place]: supervision required, verbal cues required [id number], Assistive Device: 2 wheeled walker (FWW) Sit-Stand, Level of [place]: supervision required Stand-Sit, Level of [place]: supervision required [id number], Assistive Device: 2 wheeled walker (FWW) Safety Issues: weight-shifting ability decreased, step length decreased Impairments: pain, strength decreased, impaired balance, decreased flexibility, ROM decreas ed Bed Mobility struggled and was slow tocomplete the task the task. Assistive Device: bed rails Supine to Sit, Level of [place]: modified independence Sit to Supine, Level of [place]: not tested Safety Issues: decreased use of legs for bridging/pushing Impairments: strength decreased, decreased flexibility, ROM decreased Balance Sitting Balance: Static: good balance Sitting Balance: Dynamic: (G-) Standing Balance: Static: (F-) Standing Balance: Dynamic: (F-) Therapeutic Exercise Used sliding sheath to assist and for less friction. Bed exercises: right, hip abduction/adduction, heel slides, half bridging Repetitions: 10 x 1 Seated exercises: right, long arc quads Repetitions: (x10) Standing exercises: weight shifting, marching, shallow squats, heel raises/toe raises Repetitions: (x3 min) ROM L LE ROM: WFL R LE ROM: WFL, post.hip precautions. Strength L LE Strength: grossly graded 4+/5 R LE Strength: hip flexion 2/5, abd 2/5. knee ext 3+/5, DF 4/5 STG GOALS Bed Mobility Goal, Activity Type: supine to sit/sit to supine [place] Level: modified independence Assistive Device: none Time to Achieve: 1 wk Goal Status: met Transfer Training Goal, Activity Type: bed to chair /chair to bed [place] Level: supervision required Assistive Device: 2 wheeled walker (FWW) Time to Achieve: 1 wk Goal Status: met Gait Training Goal, [place] Level: supervision required Assistive Device: 2 wheeled walker (FWW) Distance: 100 Time to Achieve: 1 wk Goal Status: met Stairs Goal, [place] Level: supervision required Assistive Device: none Number of Stairs: 9 Time to Achieve: 1 wk Goal Status: progressing toward goal LTG GOALS Transfer Training Goal, Activity Type: bed to chair /chair to bed [place] Level: modified independence Assistive Device: 2 wheeled walker (FWW) Time to Achieve: by discharge Goal Status: progressing toward goal Gait Training Goal, [place] Level: modified independence Assistive Device: 2 wheeled walker (FWW) Distance: 150 Time to Achieve: by discharge Goal Status: progressing toward goal Stairs Goal, [place] Level: modified independence Assistive Device: none Time to Achieve: by discharge Goal Status: progressing toward goal FIM: FIM Transfers Bed/Chair/Wheelchair: 4 Bed/Chair/WC Score Evidence: 4 Steadying Toilet: 5 Toilet Transfer Evidence: 5 Safety Supervision, 5 Verbal Cues, 6 Raised Toilet Seat Indepe ndence, 6 Grab Bar [place], 6 Extra Time Tub / Shower: 4 Tub/Shower Score Evidence: 4 Steadying, 5 Verbal Cues, 5 Safety Supervision, 6 Extra Time FIM Self Care Eatin Eating Score Evidence: 6 Dentures Groomin Grooming Score Evidence: 6 Extra Time Bathin Bathing Score Evidence: 5 Verbal Cues, 5 Safety Supervison, 6 Extra Time Dressing - Upper Body: 5 Dressing Upper Score Evidence: 6 Extra Time, 5 Safety Supervision Dressing - Lower Body: 4 Dressing Lower Score Evidence: On/Off R Sock, L Shoe Closure, R Shoe Closure, On/Off R Shoe , 5 Safety Supervision, 5 Verbal Cues, 6 Sock Aid, 6 Hand Scudder, 6 Extra Time (long-handled kam e horn) Toiletin Toileting Score Evidence: 4 Steadying, 5 Safety Supervision, 5 Verbal Cues, 6 Extra Time, 6 Grab Bar FIM Social/Cognition Social Interaction: 6 Social Interaction Score Evidence: 6 Extra Time Problem Solvin Problem Solving Score Evidence: 5 Daily Prbs 91-99% Memory: 5 Memory Score Evidence: 5 Recalls 91-99% FIM Locomotion Walk: 5 Distance Walked (feet): 150 feet Walk Score Evidence: 5 Supervise/150 ft+, 5 Verbal Cues/150 ft+ FIM Modifier DC Locomotion: walk FIM Modifier Walk Distance: 2 50-149 feet Stairs: 2 Stairs Score Evidence: 2 4-6 Stairs w/Assist (8 steps) FIM Communication Comprehension - Auditory: 6 Comprehension - Visual: 6 Comprehension Score Evidence: 6 Uses Glasses Expression - Vocal: 5 Expression - Non Vocal: 5 Expression Score Evidence: 5 Express 91-99% Assessment: Pt demonstrates improving mobility, follows precautions during session. Will b enefit from further strengthening, mobility training to improve activity tolerance and safet y, return to prior level of activity. Physical Therapy Anticipated Discharge Needs are: home with assist Have the anticipated discharge needs changed? no Post discharge physical therapy recommendation: Home health/outpatient Plan for next treatment: 2x/day, 1P, BH, progress mobiltiy, strengehening, gait, stair cierra lucita, car transfers Electronically signed by: Aguila Jo PTA, 11/21/2015 15:46 lan of Care - Tabitha Bautista COTA - 11/21/2015 2:54 PM PDTProblem: Patient Care Overview (Adult) Goal: Care Team Goals & Evaluation PROBLEM-RELATED GOALS: Pt will have a pain level of 3/10 by 11/24/15 Pt will not have any falls by 11/24/15 Pt will cont to have intact CMS by 11/22/15 4. Pt will be Mod I in transfers and ambulation by 11/25/15. STRATEGY TO ACHIEVE GOALS: Medicate pt as needed and per orders for pain control Frequent reminders to use call light and keep call light in reach at all times Encourage ambulation and ROM -Full participation in PT session on functional mobility training. RESTRAINT-RELATED GOALS: STRATEGIES TO ACHIEVE RESTRAINT GOALS: Occupational Therapy Daily Treatment Note Patient Information Patient Name: Dena Rose Date of : 1930 Age: 84 y.o. Precautions/Limitations: falls, right posterior hip precautions Left Upper Extremity Weight-Bearing: full weight-bearing Right Upper Extremity Weight-Bearing: full weight-bearing Left Lower Extremity Weight-Bearing: full weight-bearing Right Lower Extremity Weight-Bearing: weight-bearing as tolerated Start Time: 1303 Stop time: 1358 Time Calculation: 55 minutes Missed Treatment Time: minutes Total Treatment Time: 55 minutes TimedTreatment Code Minutes: 55 minutes Frequency: (6-7 x week) Subjective: " My leg has bee swollen and the physical therapist applied the ice pack " Objective: Pt seen for self care t/'s/toileting tasks and edema mangement to LLE. Completed sit>stand SBA/cues for hip precautions (not to bend forward ) and ambulated to/from toilet SBA w/ fww, t/f'd>toilet SBA/cues again not to bend forward and steadying A provided when standing for c lothing management. Noted mod edema on L upper/lower leg w/ hip/knee> than lower leg and tra ined/provided MLM to LLE and kinisiotape applied to promote lymphatic drainage after no neg reaction noted to strip test. Pt t/f'd BTB min A for RLE and left in room resting supine in bed w/ all light placed w/reach. Education: Posterior hip precautions and edema management/MLM/kinisiotape application to LL E Treatment Provided: Self care t/f's training to increase safety w/ fxl mobility following p osterior hip precautions and edema management to LLE for edema reduction Patient Status/Goals Reflects last filed data of patient status; may be from multiple contributors. ADLs Toileting, Level of [place]: contact guard assist, verbal cues required Assistive Device: raised toilet seat, grab bar Toileting Assess/Train, Position: sitting, supported standing Toileting Assess/Train, Impairments: decreased flexibility, ROM decreased, strength decreas ed, impaired balance Transfers Completed toilet t/f /toileting tsks SBA/cues for posterior hip precautions Toilet, Level of [place]: supervision required, verbal cues required Toilet, Assistive Device: 2 wheeled walker (FWW), grab bars STG Goals [place] Level: supervision required (Stall shower) Time to Achieve: 4 days Goal Status: new Grooming Goal, [place] Level: modified independence Time to Achieve: 4 days Goal Status: met Bathing Goal, [place] Level: supervision required Time to Achieve: 4 days Goal Status: progressing toward goal Toileting Goal, [place] Level: supervision required Time to Achieve: 4 days Goal Status: continued, progressing toward goal UB Dressing Goal, [place] Level: supervision required Time to Achieve: 4 days Goal Status: met LB Dressing Goal, [place] Level: supervision required Time to Achieve: 4 days Goal Status: progressing toward goal IADL Goal: Light snack/meal prep w/ supervision. Time to Achieve: 4 days Goal Status: new OT Additional Goal #1: Toilet transfer w/ supervision. Time to Achieve: 4 days Goal Status: met LTG Goals Transfer Training Goal, Activity Type: walk-in shower [place] Level: supervision required Assistive Device: 2 wheeled walker (FWW) Time to Achieve: 1 wk Goal Status: new Grooming Goal, [place] Level: independent Time to Achieve: 1 wk Goal Status: progressing toward goal Bathing Goal, [place] Level: supervision required Time to Achieve: 1 wk Goal Status: progressing toward goal Toileting Goal, [place] Level: modified independence Time to Achieve: 1 wk Goal Status: new UB Dressing Goal, [place] Level: independent Time to Achieve: 1 wk Goal Status: progressing toward goal LB Dressing Goal, [place] Level: modified independence Time to Achieve: 1 wk Goal Status: progressing toward goal IADL Goal: Light snack/meal prep w/ mod I. Time to Achieve: 1 wk Goal Status: new OT Additional Goal #1: Toilet transfer w/ mod I. Goal Status: continued Time to Achieve: 1 wk FIM: FIM Transfers Toilet: 5 Toilet Transfer Evidence: 5 Safety Supervision, 5 Verbal Cues, 6 Raised Toilet Seat Indepe ndence, 6 Grab Bar [place], 6 Extra Time FIM Self Care Toiletin Toileting Score Evidence: 4 Steadying, 5 Safety Supervision, 5 Verbal Cues, 6 Extra Time, 6 Grab Bar Assessment: Required cues x2 not to bend forward during sit>t/f's and toileting tasks and p osterior hip precautions were reviewed. Noted good response to MLM on RLE as tissue felt sof ter to the touch after MLM. To cont progressing safety fw/ fxl mobility following posterior hip precautions and monitor edema on LLE. Occupational Therapy Anticipated Discharge Needs are: (TBD) Have the anticipated discharge needs changed? no Post discharge occupational therapy recommendation: TBD Plan for next treatment: 1P,NK,fxlmobility/ADL training/reinforce posterior hip precautions Electronically signed by: MISSY Ibrahim, 11/21/2015 14:41 lan of Care - Isai Evans Chaplain - 11/21/2015 1:53 PM PDTProblem: Spiritual Distress, Risk/Actual ( Adult,Obstetrics,Pediatric) Goal: Spiritual Well-being Patient will demonstrate the desired outcomes by discharge/transition of care. Spiritual Care Dena Rose is a 84 y.o. male who is admitted for Hip Fracture. Spiritual Evaluation: Patient was sitting in chair waiting for his physical therapy team to come in and help him with some exeresis. He stated sometimes he is able to do the exeresis and sometimes he finds it difficult. Yet he does his best to do what his body allows him to do. Patient is hopeful he will be able to go home tomorrow and be with his . He also ask ed me to move his table out of the way and get him his walker. Patient is a strong Sabianism and I wished him good health. Spiritual Intervention: Patient welcomed tip puncher visit, supportive listening and I wishe d him good health. Spiritual Outcomes: Patient thank me for the visit. Spiritual Goals/Follow up: Funeral Location Manager will continue to provide ongoing emotional/spiritual support for patient as requested. lan of Rachel Woodson, PT - 11/21/2015 1:01 PM PDTProblem: Patient Care Overview (Adult) Goal: Care Team Goals & Evaluation PROBLEM-RELATED GOALS: Pt will have a pain level of 3/10 by 11/24/15 Pt will not have any falls by 11/24/15 Pt will cont to have intact CMS by 11/22/15 4. Pt will be Mod I in transfers and ambulation by 11/25/15. STRATEGY TO ACHIEVE GOALS: Medicate pt as needed and per orders for pain control Frequent reminders to use call light and keep call light in reach at all times Encourage ambulation and ROM -Full participation in PT session on functional mobility training. 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 Hor se stepped on his foot causing him to fall backward injuring his R hip. Sustained intracapu lar hip fx, displaced, R. Underwent R hip hemiarthroplasty, posterior approach . Pt is now admitted to in pt rehab to improve functional mobility for safe d/c. PT Diagnosis: Impaired balance, gait instability, ms weakness, difficulty in bed mobility and functional transfers. Start Time: 1117 Stop time: 1213 Time Calculation: 56 minutes Missed Treatment Time: 0 minutes Total Treatment Time: 56 minutes TimedTreatment Code Minutes: 56 minutes Subjective: Pt agreed to work with PT and tolerated tx well. Pt's daughter and spouse pres ent and initiated family caregiver training. Objective: Treatment Provided: Gait training with FWW x 150' SBA with verbal cues for hell strike. (R) hip flex during swing phase and inc.step width to normalize gait pattern. Transfer trainin g from a 24" bed height. Pt was able to stand from the bed and struggled to sit d/t dec.ROM on (L) knee. Stair training x 8 steps using (B) hand rail with verbal cues for correct seq uence and completely clearing (L) foot off the steps to descend stairs. AROM on (R) hip in supine to improve strength and bed mobility. Lunges in // bars x 2 reps s 15 sec.to improve ROM on (L) knee to improve stairs and transfers. Education: Caregiver education on proper guarding technique on the steps. Caregivers annie frankel. Patient Status/Goals: Reflects last filed data of patient status; may be from multiple contributors. Gait Level of [place] : supervision required, verbal cues required Assistive Device: 2 wheeled walker (FWW) Distance (feet): 150 Gait Pattern Analysis: 3-point gait Gait Deviations: lizette decreased, double stance time increased, limb motion velocity decr eased, step length decreased, stride length decreased, weight-shifting ability decreased, to e-to-floor clearance decreased, dcovf-ts-gljibj ratio decreased Impairments: strength decreased, impaired balance, decreased flexibility Stairs struggled to step down d/t dec. ROM on (L) knee Number of Stairs: 8 Handrail Location: both sides Level of [place]: contact guard assist, verbal cues required Assistive Device: none Technique Used: step to step (ascending), step to step (descending) Safety Issues: (.) Impairments: strength decreased, impaired balance, decreased flexibility, ROM decreased Transfers struggled to sit on a 24" bed height d/t dec.ROM on (L) knee. Bed-Chair, Level of [place]: supervision required, verbal cues required Chair-Bed, Level of [place]: supervision required, verbal cues required [id number], Assistive Device: 2 wheeled walker (FWW) Sit-Stand, Level of [place]: supervision required Stand-Sit, Level of [place]: contact guard assist [id number], Assistive Device: 2 wheeled walker (FWW) Safety Issues: weight-shifting ability decreased, step length decreased Impairments: pain, strength decreased, impaired balance, decreased flexibility, ROM decreas ed Bed Mobility struggled and was slow tocomplete the task the task. Assistive Device: bed rails Supine to Sit, Level of [place]: modified independence Sit to Supine, Level of [place]: not tested Safety Issues: decreased use of legs for bridging/pushing Impairments: strength decreased, decreased flexibility, ROM decreased Therapeutic Exercise Used sliding sheath to assist and for less friction. Bed exercises: right, hip abduction/adduction, heel slides, half bridging Repetitions: 10 x 1 Seated exercises: right, long arc quads Repetitions: (x10) Functional Endurance ROM L LE ROM: WFL R LE ROM: WFL, post.hip precautions. Strength L LE Strength: grossly graded 4+/5 R LE Strength: hip flexion 2/5, abd 2/5. knee ext 3+/5, DF 4/5 STG GOALS Bed Mobility Goal, Activity Type: supine to sit/sit to supine [place] Level: modified independence Assistive Device: none Time to Achieve: 1 wk Goal Status: progressing toward goal Transfer Training Goal, Activity Type: bed to chair /chair to bed [place] Level: supervision required Assistive Device: 2 wheeled walker (FWW) Time to Achieve: 1 wk Goal Status: met Gait Training Goal, [place] Level: supervision required Assistive Device: 2 wheeled walker (FWW) Distance: 100 Time to Achieve: 1 wk Goal Status: met Stairs Goal, [place] Level: supervision required Assistive Device: none Number of Stairs: 9 Time to Achieve: 1 wk Goal Status: revised LTG GOALS Transfer Training Goal, Activity Type: bed to chair /chair to bed [place] Level: modified independence Assistive Device: 2 wheeled walker (FWW) Time to Achieve: by discharge Goal Status: progressing toward goal Gait Training Goal, [place] Level: modified independence Assistive Device: 2 wheeled walker (FWW) Distance: 150 Time to Achieve: by discharge Goal Status: progressing toward goal Stairs Goal, [place] Level: modified independence Assistive Device: none Time to Achieve: by discharge Goal Status: revised FIM: FIM Transfers Bed/Chair/Wheelchair: 4 Bed/Chair/WC Score Evidence: 4 Steadying FIM Locomotion Walk: 5 Distance Walked (feet): 150 feet Walk Score Evidence: 5 Supervise/150 ft+, 5 Verbal Cues/150 ft+ FIM Modifier DC Locomotion: walk FIM Modifier Walk Distance: 2 50-149 feet Stairs: 2 Stairs Score Evidence: 2 4-6 Stairs w/Assist (8 steps) Assessment: Pt progressing towards PT goals. Pt will benefit from a taller bed and chair a t home for safe transfers. Cont.to work on gait, balance and stairs for safe home d/c. End urance improving but still fatigues easily. Physical Therapy Anticipated Discharge Needs are: home with assist, home with home health Have the anticipated discharge needs changed? no Post discharge physical therapy recommendation: Home Health PT. Plan for next treatment: BID, CW (R) hip strengtheing, progressive gait, stair training, [facility] car transfers mat. Electronically signed by: RACHEL ALAMO, PT, 11/21/2015 12:53 lan of Care - Lang boo Taylor Peyman, OT - 11/21/2015 11:56 AM PDTProblem: Patient Care Overview (Adult) Goal: Care Team Goals & Evaluation PROBLEM-RELATED GOALS: Pt will have a pain level of 3/10 by 11/24/15 Pt will not have any falls by 11/24/15 Pt will cont to have intact CMS by 11/22/15 4. Pt will be Mod I in transfers and ambulation by 11/25/15. STRATEGY TO ACHIEVE GOALS: Medicate pt as needed and per orders for pain control Frequent reminders to use call light and keep call light in reach at all times Encourage ambulation and ROM -Full participation in PT session on functional mobility training. RESTRAINT-RELATED GOALS: STRATEGIES TO ACHIEVE RESTRAINT GOALS: Outcome: Improving Occupational Therapy Daily Treatment Note Patient Information Patient Name: Dena Rose Date of : 1930 Age: 84 y.o. Precautions/Limitations: falls, right posterior hip precautions Left Upper Extremity Weight-Bearing: full weight-bearing Right Upper Extremity Weight-Bearing: full weight-bearing Left Lower Extremity Weight-Bearing: full weight-bearing Right Lower Extremity Weight-Bearing: weight-bearing as tolerated Start Time: 08 Stop time: 0940 Time Calculation: 71 minutes Missed Treatment Time: minutes Total Treatment Time: 71 minutes TimedTreatment Code Minutes: 71 minutes Frequency: (6-7 x week) Subjective: Feeling better today. Objective: Pt seen for ADLs, functional mobility. Participated in light bathing, grooming, U/LB dress ing. See below for levels of assist. Supine-sit w/ light CGA to reduce friction for RLE, c ues for good technique. Bed flat and railing removed. Sit-stand throughout session w/ SBA, good technique but required intermittent cues for R foot placement for safety. 2/3 recall of posterior hip precautions. Noted difficulty swallowing while taking medication. Will co nsult ORBITREAD OPERATOR. Seated in chair @ conclusion. Call light in place, assisted to phone . Education: Posterior hip precautions; AE for LB dressing Treatment Provided: ADL training; functional mobility; safety awareness Patient Status/Goals Reflects last filed data of patient status; may be from multiple contributors. ADLs Light sponge this AM from standing. Bathing, Level of [place]: supervision required, verbal cues required Assistive Device: grab bars, hand-held shower head, tub bench Bathing Assess/Train, Position: standing Bathing Assess/Train, Impairments: impaired balance Retrieved clothing from closet. UB Dressing, Level of [place]: modified independence UB Dressing Assess/Train, Position: sitting Retrieved clothing from closet. Donned regular socks today (tube socks) which were difficu lt to don onto sock aid. Introduced long-handled shoe horn. LB, Level of [place]: minimum assist (75% patient effort), verbal cues required, set u p required Assistive Device: long-handled shoe horn, social service liaison, sock-aid LB Dressing Assess/Train, Position: sitting, standing LB Dressing Assess/Train, Impairments: decreased flexibility, ROM decreased, strength decre ased, pain, impaired balance Standing @ sink Grooming, Level of [place]: modified independence Grooming Assess/Train, Position: standing Cognitive Orientation: oriented x 4 Follows Commands/Answers Questions: 100% of the time Personal Safety: mild impairment Short/Automatic Vulcanizing Operator Memory: mild impairment, short term memory, moderate impairment, short term memory Sequencing: mild impairment STG Goals Grooming Goal, [place] Level: modified independence Time to Achieve: 4 days Goal Status: met Bathing Goal, [place] Level: supervision required Time to Achieve: 4 days Goal Status: progressing toward goal UB Dressing Goal, [place] Level: supervision required Time to Achieve: 4 days Goal Status: met LB Dressing Goal, [place] Level: supervision required Time to Achieve: 4 days Goal Status: progressing toward goal LTG Goals Grooming Goal, [place] Level: independent Time to Achieve: 1 wk Goal Status: progressing toward goal Bathing Goal, [place] Level: supervision required Time to Achieve: 1 wk Goal Status: progressing toward goal UB Dressing Goal, [place] Level: independent Time to Achieve: 1 wk Goal Status: progressing toward goal LB Dressing Goal, [place] Level: modified independence Time to Achieve: 1 wk Goal Status: progressing toward goal FIM: FIM Self Care Groomin Grooming Score Evidence: 6 Extra Time Bathin Bathing Score Evidence: 5 Verbal Cues, 5 Safety Supervison, 6 Extra Time Dressing - Upper Body: 6 Dressing Upper Score Evidence: 6 Extra Time, Dressing - Lower Body: 4 Dressing Lower Score Evidence: On/Off R Sock, L Shoe Closure, R Shoe Closure, On/Off R Shoe , 5 Safety Supervision, 5 Verbal Cues, 6 Sock Aid, 6 Hand Scudder, 6 Extra Time (long-handled kam e horn) Assessment: Improved recall of hip precautions w/ less verbal cues during ADLs primarily fo r no hip flexion >90*. Improved use of AE for LB dressing. Sit-stands from surfaces also i mproved w/ greater use of hands to push. Occupational Therapy Anticipated Discharge Needs are: (TBD) Have the anticipated discharge needs changed? no Post discharge occupational therapy recommendation: TBD- Home Health?? Plan for next treatment: 1P,JM.Kinesiotape RLE,fxl transfers,review posterior hip precautio ns Electronically signed by: Taylor Castillo OT, 11/21/2015 11:47 lan of Care - Bernie Leong RN - 11/21/2015 5:23 AM PDTProblem: Patient Care Overview (Adult) Goal: Care Team Goals & Evaluation PROBLEM-RELATED GOALS: Pt will have a pain level of 3/10 by 11/24/15 Pt will not have any falls by 11/24/15 Pt will cont to have intact CMS by 11/22/15 4. Pt will be Mod I in transfers and ambulation by 11/25/15. STRATEGY TO ACHIEVE GOALS: Medicate pt as needed and per orders for pain control Frequent reminders to use call light and keep call light in reach at all times Encourage ambulation and ROM -Full participation in PT session on functional mobility training. RESTRAINT-RELATED GOALS: STRATEGIES TO ACHIEVE RESTRAINT GOALS: Outcome: Improving Goal Evaluation: He slept well this noc. Complained of right anterior knee pain, medicated with po Tylenol which helped. He reports he has arthritis in knee and takes Celebrex at home. Aquacell dress ing to right hip incision-CDI. MS BLE 08/28. 1 person SBA w/FWW. WBAT RLE. Calling appropriate ly. He denies any numbness/tingling all extremities. lan of Care - Janelle Garcia, Speech Pathologist - 11/20/2015 6:21 PM PDTFormatting of this note migh t be different from the original. Problem: Patient Care Overview (Adult) Goal: Care Team Goals & Evaluation PROBLEM-RELATED GOALS: Pt will have a pain level of 3/10 by 11/24/15 Pt will not have any falls by 11/24/15 Pt will cont to have intact CMS by 11/22/15 4. Pt will be Mod I in transfers and ambulation by 11/25/15. STRATEGY TO ACHIEVE GOALS: Medicate pt as needed and per orders for pain control Frequent reminders to use call light and keep call light in reach at all times Encourage ambulation and ROM -Full participation in PT session on functional mobility training. RESTRAINT-RELATED GOALS: STRATEGIES TO ACHIEVE RESTRAINT GOALS: Speech Therapy IRF Initial Evaluation Note Patient Information Patient Name: Dena Rose Date of : 1930 Age: 84 y.o. History No diagnosis found. Date of Onset: 11/16/2015 Past Medical History Diagnosis Date Carotid stenosis Femur fracture, left (HCC) Basal cell carcinoma of skin Actinic keratosis Eczema Osteoarthritis Hearing loss wears hearing aids Pes planus Wears dentures full upper CAD (coronary artery disease) Anemia CVA (cerebral vascular accident) ([facility]) H/O: facial fractures Fx eight/more rib-closed Past Surgical History Procedure Laterality Date Cath placement 05/23/15 Coronary artery stent 07/07/14 Left femur fracture repair Brachytherapy breast Egd and colonoscopy N/A 07/25/2015 Procedure: EGD / COLONOSCOPY; Surgeon: Dena More MD; Location: [facility] Hip arthroplasty Right 11/16/2015 Procedure: Right Hemiarthroplasty Hip ; Surgeon: Rayo Mercado MD; Location: [facility] MA[facility] OR Allergies Allergen Reactions Sulfa Antibiotics Nausea And Vomiting Precautions/Limitations: falls, right posterior hip precautions Left Upper Extremity Weight-Bearing: full weight-bearing Right Upper Extremity Weight-Bearing: full weight-bearing Left Lower Extremity Weight-Bearing: full weight-bearing Right Lower Extremity Weight-Bearing: weight-bearing as tolerated Summary: Pt seen for initial cognitive communication evaluation s/p admit for closed right hip fracture. Pt is able to restate what happened to him, and denies any cognitive deficits , though later he stated that sometimes his speech is slurred, and he wonders if he has Alzh eimer's. He also states that he used to stutter and no longer does. He discussed that he had a CVA in 2013 and last August had a TIA and now has occasional word finding deficits. Also s tated that a horse kicked him in the face and broke several bones on his R side face. Cognis tat administered: See detailed scores below. Pt may benefit from further ORBITREAD OPERATOR services to tea ch memory strategies, and facilitate recall of hip precautions to maximize safety. Need to speak with or other family members to obtain baseline cognitive ability. Cognistat Date: 11/20/2015 Subtest Severity Notes/Description Orientation WNL 11/ Attention WNL Passed screener Speech Sample Mild impairment Lacked detail, and no inference Comprehension WNL Passed screener Repetition WNL Passed screener Naming WNL 7/8 Constructional Ability Mild impairment 3/5 Memory Moderate impairment 6/12 Calculations WNL 4/4 Reasoning WNL 6/6 Judgment WNL 5/5 Speech language pathology will follow Dena Rose 3 times/wk until discharge from [facility] or discharged from the hospital. Speech Language Pathology Anticipated Discharge Needs are: home with family/caregiver Post discharge speech language pathology recommendation: re-evalulate at next level of car e Identified Problems Needing Skilled Intervention: Moderate short term memory impairment se condary to post op delirium vs baseline cognitive impairment Planned Interventions: memory, patient/caregiver education Patient Status/Goals Reflects last filed data of patient status; may be from multiple contributors. FIM FIM Communication Comprehension - Auditory: 6 Comprehension - Visual: 6 Comprehension Score Evidence: 6 Uses Hearing Aide Expression - Vocal: 5 Expression - Non Vocal: 5 Expression Score Evidence: 5 Express 91-99% FIM Social/Cognition Social Interaction: 6 Social Interaction Score Evidence: 6 Extra Time Problem Solvin Problem Solving Score Evidence: 5 Daily Prbs 91-99% Memory: 4 Memory Score Evidence: 4 Recalls 75-90% Cognitive Short/Half-Way Memory: moderate impairment, short term memory STG Goals Cognition Goal: Pt will use memory strategies taught by ORBITREAD OPERATOR to improve short term memory to facilitate progress to PLOF Time to Achieve Goals: 2 - 3 days Goal Status: new Start Time: 1650 Stop time: 1715 Time Calculation: 25 minutes Missed Treatment Time: minutes Total Treatment Time: 25 minutes TimedTreatment Code Minutes: 0 minutes Plan for next treatment: Memory strategies, recall of precautions Electronically signed by: Janelle Lucas, SPEECH PATHO, 11/20/2015 18:18 lan of Care - Tripp, Carlos Perez RN - 11/20/2015 5:25 PM PDTProblem: Patient Care Overvie w (Adult) Goal: Care Team Goals & Evaluation PROBLEM-RELATED GOALS: Pt will have a pain level of 3/10 by 11/24/15 Pt will not have any falls by 11/24/15 Pt will cont to have intact CMS by 11/22/15 4. Pt will be Mod I in transfers and ambulation by 11/25/15. STRATEGY TO ACHIEVE GOALS: Medicate pt as needed and per orders for pain control Frequent reminders to use call light and keep call light in reach at all times Encourage ambulation and ROM -Full participation in PT session on functional mobility training. RESTRAINT-RELATED GOALS: STRATEGIES TO ACHIEVE RESTRAINT GOALS: Goal Evaluation: Pt is A&O X4, denies pain during day shift. Pt ambulates to the bathroom with one person CGA and FWW today during day shift. CMS intact, denies numbness, 2+ edema noted to right hip and lower leg. Aquacell dressing c/d/i. lan of Care - Gloria Gabriel L[place]IS - 11/20/2015 4:19 PM PDTProblem: Patient Care Overview (Adult) Goal: Care Team Goals & Evaluation PROBLEM-RELATED GOALS: Pt will have a pain level of 3/10 by 11/24/15 Pt will not have any falls by 11/24/15 Pt will cont to have intact CMS by 11/22/15 4. Pt will be Mod I in transfers and ambulation by 11/25/15. STRATEGY TO ACHIEVE GOALS: Medicate pt as needed and per orders for pain control Frequent reminders to use call light and keep call light in reach at all times Encourage ambulation and ROM -Full participation in PT session on functional mobility training. RESTRAINT-RELATED GOALS: STRATEGIES TO ACHIEVE RESTRAINT GOALS: Outcome: Improving Occupational Therapy Daily Treatment Note Patient Information Patient Name: Dena Rose Date of : 1930 Age: 84 y.o. Precautions/Limitations: falls, right posterior hip precautions Left Upper Extremity Weight-Bearing: full weight-bearing Right Upper Extremity Weight-Bearing: full weight-bearing Left Lower Extremity Weight-Bearing: full weight-bearing Right Lower Extremity Weight-Bearing: weight-bearing as tolerated Start Time: 1500 Stop time: 1600 Time Calculation: 60 minutes Missed Treatment Time: minutes Total Treatment Time: 60 minutes TimedTreatment Code Minutes: 48 minutes Frequency: (6-7 x week) Subjective: "I'd like to go home tomorrow if I can. I can exercise at home". Objective: Initiated with discussion on current functional level and need to avoid placing a burden on his spouse/family. Pt feels he can manage his mobility fairly well so had pt t ransition from supine to sit from flat bed/no bed rail. Pt able to perform task but with gr eat difficulty. Educated pt on a/e option for bed at home and gave pt a handout with infor mation on bedrail. Pt also states his bed at home is quite low so was debating putting a c haise lounge cushion on his bed to increase height. Educated pt on bed risers as an option and reviewed various options. Handout given to pt. Next, discussed bathroom a/e. Pt stat es she has a walk in shower without a chair. Recommended a shower chair with armrests due t o pt's difficulty with sit to stand. Handout given as well. Pt completed several sit to st ands from EOB and transferred to bedside chair. Education: A/E options for home Treatment Provided: As above Cognitive Orientation: oriented x 4 Follows Commands/Answers Questions: 100% of the time Personal Safety: mild impairment Short/Automatic Vulcanizing Operator Memory: mild impairment, short term memory ROM L UE ROM: WFL R UE ROM: WFL Strength L UE Strength: 5/5 R UE Strength: 5/5 STG Goals [place] Level: supervision required (Stall shower) Time to Achieve: 4 days Goal Status: new Grooming Goal, [place] Level: modified independence Time to Achieve: 4 days Goal Status: new Bathing Goal, [place] Level: supervision required Time to Achieve: 4 days Goal Status: new Toileting Goal, [place] Level: supervision required Time to Achieve: 4 days Goal Status: new UB Dressing Goal, [place] Level: supervision required Time to Achieve: 4 days Goal Status: new LB Dressing Goal, [place] Level: supervision required Time to Achieve: 4 days Goal Status: new IADL Goal: Light snack/meal prep w/ supervision. Time to Achieve: 4 days Goal Status: new OT Additional Goal #1: Toilet transfer w/ supervision. Time to Achieve: 4 days Goal Status: new LTG Goals Transfer Training Goal, Activity Type: walk-in shower [place] Level: supervision required Assistive Device: 2 wheeled walker (FWW) Time to Achieve: 1 wk Goal Status: new Grooming Goal, [place] Level: independent Time to Achieve: 1 wk Goal Status: new Bathing Goal, [place] Level: supervision required Time to Achieve: 1 wk Goal Status: new Toileting Goal, [place] Level: modified independence Time to Achieve: 1 wk Goal Status: new UB Dressing Goal, [place] Level: independent Time to Achieve: 1 wk Goal Status: new LB Dressing Goal, [place] Level: modified independence Time to Achieve: 1 wk Goal Status: new IADL Goal: Light snack/meal prep w/ mod I. Time to Achieve: 1 wk Goal Status: new OT Additional Goal #1: Toilet transfer w/ mod I. Goal Status: met Time to Achieve: 1 wk FIM: FIM Transfers Bed/Chair/Wheelchair: 5 Bed/Chair/WC Score Evidence: 5 Verbal Cues, 5 Safety Supervision Toilet: 4 Toilet Transfer Evidence: 4 Steadying, 5 Verbal Cues, 5 Safety Supervision, 6 Extra Time Tub / Shower: 4 Tub/Shower Score Evidence: 4 Steadying, 5 Verbal Cues, 5 Safety Supervision, 6 Extra Time FIM Self Care Groomin Grooming Score Evidence: 5 Safety Supervison, 6 Extra Time Bathin Bathing Score Evidence: 5 Safety Supervison, 5 Verbal Cues, 6 Extra Time, 4 Steadying, L lo wer leg, R lower leg Dressing - Upper Body: 5 Dressing Upper Score Evidence: 5 Verbal Cues, 5 Safety Supervision, 6 Extra Time, 5 Get Cl othing Dressing - Lower Body: 4 Dressing Lower Score Evidence: On/Off R Pant Leg, On/Off L Pant Leg, 5 Verbal Cues, 5 Safet y Supervision, 6 Hand Scudder, 6 Sock Aid, 6 Extra Time, 5 Get Clothing, 4 Steadying Toiletin Toileting Score Evidence: 4 Steadying, 5 Safety Supervision, 5 Verbal Cues, 6 Grab Bar, 6 E xtra Time FIM Social/Cognition Social Interaction: 6 Social Interaction Score Evidence: 6 Extra Time FIM Locomotion Walk: 2 Distance Walked (feet): 70 feet Walk Score Evidence: 2 Pt 25-49% Effort/50-149ft FIM Modifier DC Locomotion: walk FIM Modifier Walk Distance: 2 50-149 feet Stairs: 2 Stairs Score Evidence: 2 4-6 Stairs w/Assist FIM Communication Comprehension - Auditory: 6 Comprehension - Visual: 6 Comprehension Score Evidence: 6 Needs Extra Time Expression - Vocal: 5 Expression Score Evidence: 5 Express 91-99% Assessment: Pt is progressing well. Requires continued skilled care/training for improved safety prior to discharge home. Occupational Therapy Anticipated Discharge Needs are: home with assist Have the anticipated discharge needs changed? no Post discharge occupational therapy recommendation: To be determined Plan for next treatment: 1P, AG, BADL with a/e training Electronically signed by: MISSY Case, 11/20/2015 16:05 lan of Care - Yolanda Chung, CURATOR OF PHOTOGRAPHY AND PRINTS - 11/20/2015 2:45 PM PDTProblem: Patient Care Overview (Adult) Goal: Care Team Goals & Evaluation PROBLEM-RELATED GOALS: Pt will have a pain level of 3/10 by 11/24/15 Pt will not have any falls by 11/24/15 Pt will cont to have intact CMS by 11/22/15 4. Pt will be Mod I in transfers and ambulation by 11/25/15. STRATEGY TO ACHIEVE GOALS: Medicate pt as needed and per orders for pain control Frequent reminders to use call light and keep call light in reach at all times Encourage ambulation and ROM -Full participation in PT session on functional mobility training. 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 Hor se stepped on his foot causing him to fall backward injuring his R hip. Sustained intracapu lar hip fx, displaced, R. Underwent R hip hemiarthroplasty, posterior approach . Pt is now admitted to in pt rehab to improve functional mobility for safe d/c. PT Diagnosis: Impaired balance, gait instability, ms weakness, difficulty in bed mobility and functional transfers. Start Time: 1345 Stop time: 1430 Time Calculation: 45 minutes Missed Treatment Time: 0 minutes Total Treatment Time: 45 minutes TimedTreatment Code Minutes: 30 minutes Subjective: pt is visiting with family. He is ready for therapy. Objective: Treatment Provided: gt training working on wider kennedy and step length on R. R hip ex in sup ine,sit and stand. Transfers into bed with min assist for lift of RLE. Education: inst to do his ex often with few reps. Patient Status/Goals: Reflects last filed data of patient status; may be from multiple contributors. Gait Level of [place] : contact guard assist, verbal cues required Assistive Device: 2 wheeled walker (FWW) Distance (feet): 120 feet Gait Pattern Analysis: 3-point gait Gait Deviations: lizette decreased, double stance time increased, limb motion velocity decr eased, step length decreased, stride length decreased, weight-shifting ability decreased, to e-to-floor clearance decreased, txvfl-[id number] ratio decreased Impairments: strength decreased, impaired balance, decreased flexibility Stairs limited ROM on (L) knee making it had to descend steps. Number of Stairs: 4 Handrail Location: both sides Level of [place]: contact guard assist, verbal cues required, 2 person assist required Assistive Device: none Technique Used: step to step (ascending), step to step (descending) Safety Issues: (.) Impairments: strength decreased, impaired balance, decreased flexibility, ROM decreased Transfers Bed-Chair, Level of [place]: contact guard assist, verbal cues required Chair-Bed, Level of [place]: contact guard assist, verbal cues required [id number], Assistive Device: 2 wheeled walker (FWW) Sit-Stand, Level of [place]: modified independence, verbal cues required (with bed in higher position) Stand-Sit, Level of [place]: verbal cues required, modified independence [id number]-[id number]-[id number], Assistive Device: 2 wheeled walker (FWW) Safety Issues: weight-shifting ability decreased, step length decreased Impairments: strength decreased, impaired balance, motor control impaired Bed Mobility struggled and was slow tocomplete the task the task. Assistive Device: bed rails Supine to Sit, Level of [place]: modified independence, verbal cues required Sit to Supine, Level of [place]: verbal cues required, contact guard assist Safety Issues: decreased use of arms for pushing/pulling, decreased use of legs for bridgin g/pushing Impairments: decreased flexibility, ROM decreased, pain, strength decreased Wheelchair Mobility Balance Sitting Balance: Static: good balance Sitting Balance: Dynamic: (G-) Standing Balance: Static: (F-) Standing Balance: Dynamic: (F-) Therapeutic Exercise Bed exercises: right, ankle pumps, quad sets, glut sets, hip abduction/adduction, heel slid es, straight leg raises Repetitions: (x7 min) Seated exercises: right, long arc quads Repetitions: (x10) Standing exercises: weight shifting, marching, shallow squats, heel raises/toe raises Repetitions: (x3 min) Functional Endurance ROM L LE ROM: WFL R LE ROM: WFL, post.hip precautions. Strength L LE Strength: grossly graded 4+/5 R LE Strength: hip flexion 2/5, abd 2/5. knee ext 3+/5, DF 4/5 Coordination Vision Muscle Tone STG GOALS Bed Mobility Goal, Activity Type: supine to sit/sit to supine [place] Level: modified independence Assistive Device: none Time to Achieve: 1 wk Goal Status: new Transfer Training Goal, Activity Type: bed to chair /chair to bed [place] Level: supervision required Assistive Device: 2 wheeled walker (FWW) Time to Achieve: 1 wk Goal Status: new Gait Training Goal, [place] Level: supervision required Assistive Device: 2 wheeled walker (FWW) Distance: 100 Time to Achieve: 1 wk Goal Status: new Stairs Goal, [place] Level: supervision required Assistive Device: 2 wheeled walker (FWW), cane (straight, single point) Number of Stairs: 9 Time to Achieve: 1 wk Goal Status: new LTG GOALS Transfer Training Goal, Activity Type: bed to chair /chair to bed [place] Level: modified independence Assistive Device: 2 wheeled walker (FWW) Time to Achieve: by discharge Goal Status: new Gait Training Goal, [place] Level: modified independence Assistive Device: 2 wheeled walker (FWW) Distance: 150 Time to Achieve: by discharge Goal Status: new Stairs Goal, [place] Level: modified independence Assistive Device: cane (straight, single point) Time to Achieve: by discharge FIM: FIM Transfers Bed/Chair/Wheelchair: 5 Bed/Chair/WC Score Evidence: 5 Verbal Cues, 5 Safety Supervision Toilet: 4 Toilet Transfer Evidence: 4 Steadying, 5 Verbal Cues, 5 Safety Supervision, 6 Extra Time Tub / Shower: 4 Tub/Shower Score Evidence: 4 Steadying, 5 Verbal Cues, 5 Safety Supervision, 6 Extra Time FIM Self Care Groomin Grooming Score Evidence: 5 Safety Supervison, 6 Extra Time Bathin Bathing Score Evidence: 5 Safety Supervison, 5 Verbal Cues, 6 Extra Time, 4 Steadying, L lo wer leg, R lower leg Dressing - Upper Body: 5 Dressing Upper Score Evidence: 5 Verbal Cues, 5 Safety Supervision, 6 Extra Time, 5 Get Cl othing Dressing - Lower Body: 4 Dressing Lower Score Evidence: On/Off R Pant Leg, On/Off L Pant Leg, 5 Verbal Cues, 5 Safet y Supervision, 6 Hand Scudder, 6 Sock Aid, 6 Extra Time, 5 Get Clothing, 4 Steadying Toiletin Toileting Score Evidence: 4 Steadying, 5 Safety Supervision, 5 Verbal Cues, 6 Grab Bar, 6 E xtra Time FIM Social/Cognition Social Interaction: 6 Social Interaction Score Evidence: 6 Extra Time FIM Locomotion Walk: 2 Distance Walked (feet): 70 feet Walk Score Evidence: 2 Pt 25-49% Effort/50-149ft FIM Modifier DC Locomotion: walk FIM Modifier Walk Distance: 2 50-149 feet Stairs: 2 Stairs Score Evidence: 2 4-6 Stairs w/Assist FIM Communication Comprehension - Auditory: 6 Comprehension - Visual: 6 Comprehension Score Evidence: 6 Needs Extra Time Expression - Vocal: 5 Expression Score Evidence: 5 Express 91-99% Assessment: Now able to do a SLR on the R. Is improving. Son-in-law will be making modif icationsaof stairs at home putting in a hand rail. Cont with TH activities to improve MRADL 's Physical Therapy Anticipated Discharge Needs are: home with assist, home with home health Have the anticipated discharge needs changed? no Post discharge physical therapy recommendation: OP PT Plan for next treatment: ,1P,transfer training,R hip strengthening, review precautions, f amily ed Electronically signed by: Yolanda Mckinley PTA, 11/20/2015 14:38 lan of Care - Rachel Gonzalez, PT - 11/20/2015 1:01 PM PDT Problem: Patient Care Overview (Adult) Goal: Care Team Goals & Evaluation PROBLEM-RELATED GOALS: Pt will have a pain level of 3/10 by 11/24/15 Pt will not have any falls by 11/24/15 Pt will cont to have intact CMS by 11/22/15 4. Pt will be Mod I in transfers and ambulation by 11/25/15. STRATEGY TO ACHIEVE GOALS: Medicate pt as needed and per orders for pain control Frequent reminders to use call light and keep call light in reach at all times Encourage ambulation and ROM -Full participation in PT session on functional mobility training. RESTRAINT-RELATED GOALS: STRATEGIES TO ACHIEVE RESTRAINT GOALS: Physical Therapy IRF Initial Evaluation Note Patient Information Patient Name: Dena Rose Date of : 1930 Age: 84 y.o. History No diagnosis found. Date of Onset: 11/16/15 Past Medical History Diagnosis Date Carotid stenosis Femur fracture, left (HCC) Basal cell carcinoma of skin Actinic keratosis Eczema Osteoarthritis Hearing loss wears hearing aids Pes planus Wears dentures full upper CAD (coronary artery disease) Anemia CVA (cerebral vascular accident) ([facility]) H/O: facial fractures Fx eight/more rib-closed Past Surgical History Procedure Laterality Date Cath placement 05/23/15 Coronary artery stent 07/07/14 Left femur fracture repair Brachytherapy breast Egd and colonoscopy N/A 07/25/2015 Procedure: EGD / COLONOSCOPY; Surgeon: Dena More MD; Location: [facility] Hip arthroplasty Right 11/16/2015 Procedure: Right Hemiarthroplasty Hip ; Surgeon: Rayo Mercado MD; Location: [facility] OR Allergies Allergen Reactions Sulfa Antibiotics Nausea And Vomiting Precautions/Limitations: falls, right posterior hip precautions Left Upper Extremity Weight-Bearing: full weight-bearing Right Upper Extremity Weight-Bearing: full weight-bearing Left Lower Extremity Weight-Bearing: full weight-bearing Right Lower Extremity Weight-Bearing: weight-bearing as tolerated EVALUATION: SUBJECTIVE: History of Presenting Problem: Dena Rose is a 84 y.o. 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 Horse stepped on his foot causing him to fall backward injuring his R hip. Sustained intracapular hip fx, displaced, R. Underwent R hip hemiarthroplasty, posterior approach . Pt is now admitted to in pt rehab to improve functi onal mobility for safe d/c. PT Diagnosis: Impaired balance, gait instability, ms weakness, difficulty in bed mobility and functional transfers. Impairments Found: aerobic capacity/endurance, ergonomics and body mechanics, gait, locomot ion, and balance, muscle performance, ROM, motor function Previous Level of Function: Ambulation: 0-->independent Transferrin-->independent Toiletin-->independent Bathin-->independent Dressin-->independent Eatin-->independent Communication: 0-->understands/communicates without difficulty Swallowin-->swallows foods/liquids without difficulty Prior Functional Level Comment: Pt was independent in AD"s and ambulate w/o AD. Role/Relationships: Significant Relationships: spouse (dgtr coming to [facility] for a while) Role Relationships Comment: Dgtr lives in [place] but will stay for a while. Living Environment/Accessibility: Lives With: spouse Living Arrangements: house Home Accessibility: stairs (2 railings present) Number of Stairs to Enter Home: 9 Number of Stairs Within Home: 0 Stair Railings at Home: outside, present on left side Financial Concerns: none Transportation Available: car Living Environment Comment: has tall toilet with safety rails. He has a narrow shower, and a hand held shower head and a shower chair with a back ('s shower). has a FWW. Shower off the bedroom. Patient s Goals: To go home soon. OBJECTIVE : Patient Status/Goals: Reflects last filed data of patient status; may be from multiple contributors. Bed Mobility struggled and was slow tocomplete the task the task. Assistive Device: bed rails Supine to Sit, Level of [place]: supervision required, verbal cues required Sit to Supine, Level of [place]: verbal cues required, supervision required Safety Issues: decreased use of legs for bridging/pushing Impairments: strength decreased, impaired balance, decreased flexibility Transfers Bed-Chair, Level of [place]: contact guard assist, verbal cues required Chair-Bed, Level of [place]: contact guard assist, verbal cues required [id number], Assistive Device: 2 wheeled walker (FWW) Sit-Stand, Level of [place]: minimum assist (75% patient effort), verbal cues required Stand-Sit, Level of [place]: contact guard assist, verbal cues required [id number], Assistive Device: 2 wheeled walker (FWW) Safety Issues: weight-shifting ability decreased, step length decreased Impairments: strength decreased, impaired balance, motor control impaired Gait Level of [place] : contact guard assist, verbal cues required Assistive Device: 2 wheeled walker (FWW) Distance (feet): 70' x 2 Gait Pattern Analysis: 2-point gait Gait Deviations: lizette decreased, double stance time increased, limb motion velocity decr eased, step length decreased, stride length decreased, weight-shifting ability decreased, to e-to-floor clearance decreased, [id number] ratio decreased Impairments: strength decreased, impaired balance, decreased flexibility Stairs limited ROM on (L) knee making it had to descend steps. Number of Stairs: 4 Handrail Location: both sides Level of [place]: contact guard assist, verbal cues required, 2 person assist required Assistive Device: none Technique Used: step to step (ascending), step to step (descending) Safety Issues: (.) Impairments: strength decreased, impaired balance, decreased flexibility, ROM decreased Balance Sitting Balance: Static: good balance Sitting Balance: Dynamic: (G-) Standing Balance: Static: (F-) Standing Balance: Dynamic: (F-) ROM L LE ROM: WFL R LE ROM: WFL, post.hip precautions. Strength L LE Strength: grossly graded 4+/5 R LE Strength: hip flexion 2/5, abd 2/5. knee ext 3+/5, DF 4/5 STG GOALS Bed Mobility Goal, Activity Type: supine to sit/sit to supine [place] Level: modified independence Assistive Device: none Time to Achieve: 1 wk Goal Status: new Transfer Training Goal, Activity Type: bed to chair /chair to bed [place] Level: supervision required Assistive Device: 2 wheeled walker (FWW) Time to Achieve: 1 wk Goal Status: new Gait Training Goal, [place] Level: supervision required Assistive Device: 2 wheeled walker (FWW) Distance: 100 Time to Achieve: 1 wk Goal Status: new Stairs Goal, [place] Level: supervision required Assistive Device: 2 wheeled walker (FWW), cane (straight, single point) Number of Stairs: 9 Time to Achieve: 1 wk Goal Status: new LTG GOALS Transfer Training Goal, Activity Type: bed to chair /chair to bed [place] Level: modified independence Assistive Device: 2 wheeled walker (FWW) Time to Achieve: by discharge Goal Status: new Gait Training Goal, [place] Level: modified independence Assistive Device: 2 wheeled walker (FWW) Distance: 150 Time to Achieve: by discharge Goal Status: new Stairs Goal, [place] Level: modified independence Assistive Device: cane (straight, single point) Time to Achieve: by discharge FIM: FIM Transfers Bed/Chair/Wheelchair: 5 Bed/Chair/WC Score Evidence: 5 Verbal Cues, 5 Safety Supervision FIM Locomotion Walk: 2 Distance Walked (feet): 70 feet Walk Score Evidence: 2 Pt 25-49% Effort/50-149ft FIM Modifier DC Locomotion: walk FIM Modifier Walk Distance: 2 50-149 feet Stairs: 2 Stairs Score Evidence: 2 4-6 Stairs w/Assist Demonstrates need for referral to other service: Assessment: Physical therapy orders received and acknowledged. Objective impairments inclu de gait instability, impaired balance, decrease activity tolerance, difficulty in bed mobili ty and functional transfers. These impairments are causing functional limitations with patie nt s inability to mobilize at a level that is safe for home d/c. Complexities contributing to the need for skilled therapy include S/P (R) Desean Arthroplasty post.approach.. Rehabilitation potential: Patient demonstrates good potential to achieve established goals to address the documented impairments by participating in skilled physical therapy services . PLAN: balance training, bed mobility training, gait training, home exercise program, manual thera py techniques, transfer training, patient/family education, stair training, strengthening, R OM (Range of Motion), wheelchair management/propulsion training Physical Therapy will follow Dena Rose 2 times/day until discharge from therapy or discharged from the hospital. Anticipated days that therapy will be provided: 11/25/15 Physical Therapy Anticipated Discharge Needs are: Ongoing PT services required. DC disposit ion TBD. Post discharge physical therapy recommendation: home health, ongoing low intensity therapy Equipment Recommendations: 2 wheeled walker (FWW) Patient and/or family has indicated understanding of treatment needs and actively participa jake in the creation of this plan for care. Today's Treatment Start Time: 1038 Stop time: 1125 Time Calculation: 47 minutes Missed Treatment Time: 0 minutes Total Treatment Time: 47 minutes TimedTreatment Code Minutes: 30 minutes Objective: Treatment Provided: PT eval completed and tx initiated. Bed mobility training supine <--> sit SBA with verbal cues for correct sequence and technique to inc.independence and maintain post hip precautions. Gait training with FWW x 70' x 2 CGA with verbal cues for increased step length and hip flex.on (R) during swing phase to normalize gait pattern. Transfer cierra lucita SIt to stand with max cuing for correct technique for safety and to maintain post.hip p recautions. Education: Post.hip precautions. Pt verbalized understanding. Assessment: Pt presents with mobility impairments secondary to (R) Desean Arthroplasty. Pt h as 9 steps to get in his house with wide steps. Pt will benefit from skilled PT services to improve functional mobility and inc.independence for safe d/c to home. Plan for next treatment: BID, CW 2P progressive gait training, stair training with SPC, re view post.hip precautions, sit to stand transfers. Electronically signed by: RACHEL ALAMO, PT, 11/20/2015 13:01 lan of Care - Taylor Campos, OT - 11/20/2015 12:16 PM PDTFormatting of this note might be different from t he original. Problem: Patient Care Overview (Adult) Goal: Care Team Goals & Evaluation PROBLEM-RELATED GOALS: Pt will have a pain level of 3/10 by 11/24/15 Pt will not have any falls by 11/24/15 Pt will cont to have intact CMS by 11/22/15 STRATEGY TO ACHIEVE GOALS: Medicate pt as needed and per orders for pain control Frequent reminders to use call light and keep call light in reach at all times Encourage ambulation and ROM RESTRAINT-RELATED GOALS: STRATEGIES TO ACHIEVE RESTRAINT GOALS: Outcome: Improving Occupational Therapy IRF Initial Evaluation Note Patient Information Patient Name: Dena Rose Date of : 1930 Age: 84 y.o. History No diagnosis found. Date of Onset: 11/16/15 Past Medical History Diagnosis Date Carotid stenosis Femur fracture, left ([facility]) Basal cell carcinoma of skin Actinic keratosis Eczema Osteoarthritis Hearing loss wears hearing aids Pes planus Wears dentures full upper CAD (coronary artery disease) Anemia CVA (cerebral vascular accident) ([facility]) H/O: facial fractures Fx eight/more rib-closed Past Surgical History Procedure Laterality Date Cath placement 05/23/15 Coronary artery stent 07/07/14 Left femur fracture repair Brachytherapy breast Egd and colonoscopy N/A 07/25/2015 Procedure: EGD / COLONOSCOPY; Surgeon: Dena More MD; [facility] Hip arthroplasty Right 11/16/2015 Procedure: Right Hemiarthroplasty Hip ; Surgeon: Rayo Mercado MD; Location: [facility] Allergies Allergen Reactions Sulfa Antibiotics Nausea And Vomiting Precautions/Limitations: falls, right posterior hip precautions Left Upper Extremity Weight-Bearing: full weight-bearing Right Upper Extremity Weight-Bearing: full weight-bearing Left Lower Extremity Weight-Bearing: full weight-bearing Right Lower Extremity Weight-Bearing: weight-bearing as tolerated Evaluation SUBJECTIVE: History of Presenting Problem: Dena Rose is a 84 y.o. who presents to therapy following R hip fx. 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 Horse stepped on his foot causing him to fall backward injuring his R hip. Sustained intracapular hip fx, displaced, R. Underwent R hip hemiarthroplasty, posterior approach same day. Patient is right handed. OT Diagnosis: Impaired ADLs, decreased functional mobility, decreased safety awareness, de creased activity tolerance Previous Level of Function: Ambulation: 0-->independent Transferrin-->independent Toiletin-->independent Bathin-->independent Dressin-->independent Eatin-->independent Communication: 0-->understands/communicates without difficulty Swallowin-->swallows foods/liquids without difficulty Prior Functional Level Comment: Pt was independent in AD"s and ambulate w/o AD. Role/Relationships: Significant Relationships: spouse (dgtr coming to town for a while) Role Relationships Comment: Dgtr lives in [place] but will stay for a while. Living Environment/Accessibility: Lives With: spouse Living Arrangements: house Home Accessibility: stairs (2 railings present) Number of Stairs to Enter Home: 9 Number of Stairs Within Home: 0 Stair Railings at Home: outside, present on left side Financial Concerns: none Transportation Available: car Living Environment Comment: has tall toilet with safety rails. He has a narrow shower, and a hand held shower head and a shower chair with a back ('s shower). has a FWW. Shower off the bedroom. Patient s Goals: Get out of here and home soon. Be able to move his RLE better. OT Visit Summary: Pt seen for IRF OT evaluation. Sitting up in chair @ bedside having fin ished breakfast. Participated in toilet transfer, toileting, bathing, U/LB dressing, groomi ng. See below for levels of assist. Pt very motivated. Tendency to hold breath w/ exertio n, min-mod fatigue w/ activity. Encouraged to complete pursed lip breathing and intermitten t rests. Ambulated w/ SBA 40 ft, very slow, guarded gait but reciprocal. Reviewed posterio r hip precautions intermittently throughout & pt had difficulty applying especially the no f lexion>90* @ hip. Reviewed IRF OT POC, potential AE/DME needs. Occupational Therapy will follow Dena Rose (6-7 x week) until discharge from [facility] or discharged from the hospital. Occupational Therapy Anticipated Discharge Needs are: Ongoing OT services required. DC disp osition TBD. Post discharge occupational therapy recommendation: TBD Equipment Recommendations: 2 wheeled walker (FWW), shower chair, social service liaison, seat riser, sock aide Planned Interventions:Planned Therapy Interventions: ADL retraining, transfer training, IAD L retraining, balance training, bed mobility training, strengthening (MLM, kinesiotaping as indicated) Patient Status/Goals Reflects last filed data of patient status; may be from multiple contributors. FIM: FIM Transfers Toilet: 4 Toilet Transfer Evidence: 4 Steadying, 5 Verbal Cues, 5 Safety Supervision, 6 Extra Time Tub / Shower: 4 Tub/Shower Score Evidence: 4 Steadying, 5 Verbal Cues, 5 Safety Supervision, 6 Extra Time FIM Self Care Groomin Grooming Score Evidence: 5 Safety Supervison, 6 Extra Time Bathin Bathing Score Evidence: 5 Safety Supervison, 5 Verbal Cues, 6 Extra Time, 4 Steadying, L lo wer leg, R lower leg Dressing - Upper Body: 5 Dressing Upper Score Evidence: 5 Verbal Cues, 5 Safety Supervision, 6 Extra Time, 5 Get Cl othing Dressing - Lower Body: 4 Dressing Lower Score Evidence: On/Off R Pant Leg, On/Off L Pant Leg, 5 Verbal Cues, 5 Safet y Supervision, 6 Hand Scudder, 6 Sock Aid, 6 Extra Time, 5 Get Clothing, 4 Steadying Toiletin Toileting Score Evidence: 4 Steadying, 5 Safety Supervision, 5 Verbal Cues, 6 Grab Bar, 6 E xtra Time ADLs Bathing, Level of [place]: minimum assist (75% patient effort), set up required, verba l cues required Assistive Device: grab bars, hand-held shower head, tub bench Bathing Assess/Train, Position: sitting, supported standing Bathing Assess/Train, Impairments: decreased flexibility, ROM decreased, strength decreased , impaired balance, pain Seated on tub bench post shower. UB Dressing, Level of [place]: set up required UB Dressing Assess/Train, Position: sitting Seated on tub bench post shower. LB, Level of [place]: minimum assist (75% patient effort), verbal cues required, set u p required Toileting, Level of [place]: contact guard assist, verbal cues required Assistive Device: grab bar (Commode over toilet) Toileting Assess/Train, Position: sitting, supported standing Toileting Assess/Train, Impairments: decreased flexibility, ROM decreased, strength decreas ed, impaired balance, pain Standing @ sink Grooming, Level of [place]: supervision required Grooming Assess/Train, Position: standing Cognitive Orientation: oriented x 4 Follows Commands/Answers Questions: 100% of the time Personal Safety: mild impairment Short/Automatic Vulcanizing Operator Memory: mild impairment, short term memory Transfers Toilet, Level of [place]: contact guard assist, verbal cues required, set up required Toilet, Assistive Device: 2 wheeled walker (FWW), grab bars Walk-In Shower, Level of [place]: contact guard assist, verbal cues required, set up r equired Walk-in shower, Assistive Device: 2 wheeled walker (FWW), grab bars, tub bench Safety Issues: step length decreased, weight-shifting ability decreased Impairments: ROM decreased, pain, strength decreased, decreased flexibility, impaired tonia ce ROM L UE ROM: WFL R UE ROM: WFL Strength L UE Strength: 5/5 R UE Strength: 5/5 STG Goals [place] Level: supervision required (Stall shower) Time to Achieve: 4 days Goal Status: new Grooming Goal, [place] Level: modified independence Time to Achieve: 4 days Goal Status: new Bathing Goal, [place] Level: supervision required Time to Achieve: 4 days Goal Status: new Toileting Goal, [place] Level: supervision required Time to Achieve: 4 days Goal Status: new UB Dressing Goal, [place] Level: supervision required Time to Achieve: 4 days Goal Status: new LB Dressing Goal, [place] Level: supervision required Time to Achieve: 4 days Goal Status: new IADL Goal: Light snack/meal prep w/ supervision. Time to Achieve: 4 days Goal Status: new OT Additional Goal #1: Toilet transfer w/ supervision. Time to Achieve: 4 days Goal Status: new LTG Goals Transfer Training Goal, Activity Type: walk-in shower [place] Level: supervision required Assistive Device: 2 wheeled walker (FWW) Time to Achieve: 1 wk Goal Status: new Grooming Goal, [place] Level: independent Time to Achieve: 1 wk Goal Status: new Bathing Goal, [place] Level: supervision required Time to Achieve: 1 wk Goal Status: new Toileting Goal, [place] Level: modified independence Time to Achieve: 1 wk Goal Status: new UB Dressing Goal, [place] Level: independent Time to Achieve: 1 wk Goal Status: new LB Dressing Goal, [place] Level: modified independence Time to Achieve: 1 wk Goal Status: new IADL Goal: Light snack/meal prep w/ mod I. Time to Achieve: 1 wk Goal Status: new OT Additional Goal #1: Toilet transfer w/ mod I. Goal Status: met Time to Achieve: 1 wk Demonstrates need for referral to other service: Case mgmt/Discharge planning Assessment: Occupational therapy orders received and acknowledged. Objective impairments i nclude impaired ADLs, decreased functional mobility, decreased activity tolerance. These imp airments are causing functional limitations with patient s inability to safely & independe ntly complete ADLs/fxl mobility. Complexities contributing to the need for skilled therapy i nclude new posterior approach R hip hemiarthroplasty; impaired recall of posterior hip preca utions; limited mvmt. Prognosis: good, to achieve stated therapy goals Patient and/or family has indicated understanding of treatment needs and actively participa jake in the creation of this plan for care. Today's Treatment Start Time: 933 Stop time: 1037 Time Calculation: 63 minutes Missed Treatment Time: minutes Total Treatment Time: 63 minutes TimedTreatment Code Minutes: 48 minutes Objective: Pt seen for IRF OT evaluation. Please see above for addt'l info on status & ou tcome. Education: OT POC; safety; potential AE/DME needs; posterior hip precautions Treatment Provided: ADL training; functional mobility; safety awareness Assessment: OT IRF evaluation completed. Pt participated well. Difficulty w/ full recall of posterior hip precautions, especially no >90* hip flexion w/i ADLs. Pt reports he is feel ing much better and stronger today. Limited RLE mvmt impairing LE ADLs. Utilized AE w/ cue s and intermittent contact for positioning, efficiency. Moderate swelling @ surgery site- m ay benefit from MLM/kinesiotaping. Plan for next treatment: 1P,JM.Therex,sit-stands,review posterior hip precautions Electronically signed by: Taylor Castillo OT, 11/20/2015 12:09 lan of Care - F Louie lawson, [facility] - 11/20/2015 12:00 PM PDTProblem: Discharge Planning Goal: Patient will be discharged in a safe manner Outcome: Improving Visited with the patient, his and grand daughter. The patient [place] [facility] [place] [facility]. There are 9 steps to get into the house with a rail on the left. Once in the house, there are no other steps that the patient has to go up or down. He has a walk in shower and there Is a raised toilet seat with safety rails on the toilet. The patient lives at home with his . They have a daughter who lives across the [facility] , a son who lives in [place] and another daughter who works in [place] not too far away. The patient has done outpatient therapy at the [facility] in [place] in the past and cou ld do that again. The patient does have a two wheeled walker at home that he has used in past. The patient would like to return home as soon as possible.Electronically signed by: KATY Agarwal 11/20/2015 12:00 atient Car e Conference - Ronnie Man MD - 11/20/2015 7:50 AM PDT [facility] Inpatient Rehabilitation Facility Individualized Overall Plan of Care Weekly Team Conference Patient Identification Dena Rose is a 84 y.o. male. : 1930 Admit Date: 11/19/2015 Attending Provider: Ronnie Man,* Primary Care Physician: Imer Thompson MD Admitting Diagnosis: Hip Fracture Team Conference Date: 11/21/2015 Medical Prognosis and need for Rehabilitation Physician oversight and anticipated Rehabilit ation Physician interventions: [place] for functional progress is good. Physician Summary: Right intracapsular hip fracture with right hip replacement by Dr. Mercado 11/16/2015. Foreign sher is not yet antigravity on the right leg, so he has problems with getting in and out of b ed, but is improving with that and toileting. Orthostatic hypotension. Initially blood pressure dropped from 132 to 95 with standing, previously was symptomatic. He is improving now, but has bilateral support hose on. Co ntinue to monitor, but expect it to improve. BUN 21. This is improving, contributing to his orthostatic hypotension. F/u tomorrow. Anemia. Hemoglobin improved from 8.4 to 9.5 after 2 units of blood. Is still having dre e orthostasis. F?u tomorrow. History of cerebrovascular accident with left hemiparesis. He has some mild coordinatio n issues on the left and reports chronically decreased balance. Thus, he has some bilatera l problems that will need a little extra timein rehabilitation to achieve goals. Hyperglycemia. Last blood sugar 134. Probably a stress response. Needs to be followed , f/u tomorrow.. Rehabilitation Nursing Summary: A, OX3. Complains of right anterior knee pain from "arthri tis", pain med effective. Aquacel dressing to right hip clean, dry, and intact. Muscle stren gths 4/5 bilateral lower extremities. 1 person SBA with FWW. Calls appropriately. Safety Management: Elopement/wander risk: No General Risk Interventions: [READ ONLY] General Risk Interventions: Conduct purposeful ro unding every 1-2 hours, Do not leave pt alone on toilet or commode, Provide pt/family educa tion related to prevention of risk for falling Cognitive Impairment Interventions: [READ ONLY] Cognitive Impairment Interventions: Antic ipate and meet pt's physical needs, Manage pain adequately Altered Eliminations/Toileting interventions: Toilet pt every 1-2 hours, Assess for presence of urinary tract infection (i.e. frequency, urgency, foul smelling urine, elevated WBC's, fever) Safety Management Goal: Pt will have no falls duirng hospital stay. Pt will call for help 90% of the time. Pain Management: Pain ratin-5/10 Pain Management Goal: Patient will call for pain medication as need it. Pain level will be managed to a Pt's goal and to allow Pt to participated with therapy. Skin Management: Vaibhav Score: 20 Skin Management Goal: Incision will show no s/s of infection. Pt will show no s/s of skin b reakdown while he is in the hospital. Bladder Management: FIM BladderScore: 5; Evidence: 5 Nursing Empties # Bladder accidents last 7 days: Bowel Management: FIM Bowel Score: 6; Evidence: 6 Medication [place] # Bowel accidents last 7 days: Bowel Management Goal: Pt will be continent of bowels and will have a BM after taking chelsey l medications. Nutrition Management: Pt is eating 100% of a general diet. Fluid intake yesterday per I/O was 1470 ml. No appa rent nutrition concerns at this time. Will continue to follow as needed. Mobility Summary: Pt was SBA on bed mobility, struggled to move (R) LE in bed. Pt requir ed CGA/Min A on sit to stand with verbal cues to maintain post.hip precautions. Pt can ambu late x 70' with FWW demonstrating dec.lizette and step length. Pt can negotiate 4 steps usi ng (B) hand rail step to pattern and has some difficulty descending the steps d/t dec.ROM on (L) knee from previous (R) TKA. Pt also fatigues easily. Pt has to be able to negotiate luh ps Using 1 hand rail + SPC for safe d/c at home and would benefit from Continued PT servic es to improve functional mobility and gait. Transfers FIM Bed/Chair/Wheelchair Score: 4; Evidence: 4 steadying FIM Toilet Transfer Score: 4; Evidence: 4 Steadying, 5 Verbal Cues, 5 Safety Supervision, 6 Extra Time FIM Tub/Shower Transfer Score: 4; Evidence: 4 Steadying, 5 Verbal Cues, 5 Safety Supervision, 6 Extra Time Locomotion FIM Walk Score: 2; Evidence: 2 Pt 25-49% Effort/50-149ft FIM Distance Walked(feet): 70 feet FIM Wheelchair Score: ; Evidence: FIM Stairs Score :2; Evidence: 2 4-6 Stairs w/Assist PT GOALS Short Term Goals PT Short Term Goals: bed mobility, transfers, gait, stairs Bed Mobility Goal, Activity Type: supine to sit/sit to supine [place] Level: modified independence Assistive Device: none Time to Achieve: 1 wk Goal Status: new Transfer Training Goal, Activity Type: bed to chair /chair to bed [place] Level: supervision required Assistive Device: 2 wheeled walker (FWW) Time to Achieve: 1 wk Goal Status: new Gait Training Goal, [place] Level: supervision required Assistive Device: 2 wheeled walker (FWW) Distance: 100 Time to Achieve: 1 wk Goal Status: new Stairs Goal, [place] Level: supervision required Assistive Device: 2 wheeled walker (FWW), cane (straight, single point) Number of Stairs: 9 Time to Achieve: 1 wk Goal Status: new Half-Way Goals PT Automatic Vulcanizing Operator Goals: transfers, gait, stairs Transfer Training Goal, Activity Type: bed to chair /chair to bed [place] Level: modified independence Assistive Device: 2 wheeled walker (FWW) Time to Achieve: by discharge Goal Status: new Gait Training Goal, [place] Level: modified independence Assistive Device: 2 wheeled walker (FWW) Distance: 150 Time to Achieve: by discharge Goal Status: new Stairs Goal, [place] Level: modified independence Assistive Device: cane (straight, single point) Time to Achieve: by discharge Self Care Summary: Pt admitted to IRF yesterday and seen for initial OT evaluation. Parti cipated in toilet transfer, toileting, bathing, U/LB dressing, grooming. See below for leve ls of assist. Pt very motivated. Tendency to hold breath w/ exertion, min-mod fatigue w/ a ctivity. Encouraged to complete pursed lip breathing and intermittent rests. Ambulated w/ SBA 40 ft, very slow, guarded gait but reciprocal. Reviewed posterior hip precautions inter mittently throughout & pt had difficulty applying especially the no flexion>90* @ hip. Pt d emonstrates limited RLE mobility interfering w/ his ADL capabilities. Demonstrated some dif ficulties in recall of posterior hip precautions and may benefit from a ORBITREAD OPERATOR evaluation to fa cilitate recovery. FIM Eating Score: 6; Evidence: FIM Grooming Score: 5; Evidence: 5 Safety Supervison, 6 Extra Time FIM Bathing Score: 4; Evidence: 5 Safety Supervison, 5 Verbal Cues, 6 Extra Time, 4 Steadying, L lower leg, R lo wer leg FIM Dressing Upper Body Score: 5; Evidence:5 Verbal Cues, 5 Safety Supervision, 6 Extra T alvarez, 5 Get Clothing FIM Dressing Lower Body Score: 4; Evidence:On/Off R Pant Leg, On/Off L Pant Leg, 5 Verbal Cues, 5 Safety Supervision, 6 Reac her, 6 Sock Aid, 6 Extra Time, 5 Get Clothing, 4 Steadying FIM Toileting Score: 4; Evidence:4 Steadying, 5 Safety Supervision, 5 Verbal Cues, 6 Gr ab Bar, 6 Extra Time OT Goals Short Term Goals OT Short Term Goals: transfers, LB dressing, grooming, bathing, toileting, UB dressing, IAD L, additional goal #1 [place] Level: supervision required (Stall shower) Time to Achieve: 4 days Goal Status: new Grooming Goal, [place] Level: modified independence Time to Achieve: 4 days Goal Status: new Bathing Goal, [place] Level: supervision required Time to Achieve: 4 days Goal Status: new Toileting Goal, [place] Level: supervision required Time to Achieve: 4 days Goal Status: new UB Dressing Goal, [place] Level: supervision required Time to Achieve: 4 days Goal Status: new LB Dressing Goal, [place] Level: supervision required Time to Achieve: 4 days Goal Status: new IADL Goal: Light snack/meal prep w/ supervision. Time to Achieve: 4 days Goal Status: new OT Additional Goal #1: Toilet transfer w/ supervision. Time to Achieve: 4 days Goal Status: new Half-Way Goals OT Automatic Vulcanizing Operator Goals: transfers, grooming, bathing, toileting, UB dressing, LB dressing, IADL , additional goal #1 Transfer Training Goal, Activity Type: walk-in shower [place] Level: supervision required Assistive Device: 2 wheeled walker (FWW) Time to Achieve: 1 wk Goal Status: new Grooming Goal, [place] Level: independent Time to Achieve: 1 wk Goal Status: new Bathing Goal, [place] Level: supervision required Time to Achieve: 1 wk Goal Status: new Toileting Goal, [place] Level: modified independence Time to Achieve: 1 wk Goal Status: new UB Dressing Goal, [place] Level: independent Time to Achieve: 1 wk Goal Status: new LB Dressing Goal, [place] Level: modified independence Time to Achieve: 1 wk Goal Status: new IADL Goal: Light snack/meal prep w/ mod I. Time to Achieve: 1 wk Goal Status: new OT Additional Goal #1: Toilet transfer w/ mod I. Goal Status: met Time to Achieve: 1 wk Cognition/Communication Summary: Pt is able to restate what happened to him, and denies an y cognitive deficits, though later he stated that sometimes his speech is slurred, and he wo nders if he has Alzheimer's. He also states that he used to stutter and no longer does. He d iscussed that he had a CVA in 2013 and last August had a TIA and now has occasional word find ing deficits. ALso stated that he was kicked in the face by a horse last August and broke fac ial bones. Cognistat administered: See detailed scores below. Pt may benefit from further SL P services to teach memory strategies, and facilitate recall of hip precautions to maximize safety. Cognistat Date: 11/20/2015 Subtest Severity Notes/Description Orientation WNL 11 Attention WNL Passed screener Speech Sample Mild impairment Lacked detail, and no inference Comprehension WNL Passed screener Repetition WNL Passed screener Naming WNL 7/8 Constructional Ability Mild impairment 3/5 Memory Moderate impairment 6/12 Calculations WNL 4/4 Reasoning WNL 6/6 Judgment WNL 5/5 Problem Solving Score: 5; Evidence: 5 Daily Prbs 91-99% Memory Score: 5; Evidence: 5 Recalls 91-99% Comprehension/AuditoryScore: 6; Evidence: 6 Uses Glasses Verbal Expression Score: 5; Evidence: 5 Express 91-99% Social Interaction Score: 6; Evidence:6 Extra Time Dysphagia/Swallow: No concerns ORBITREAD OPERATOR Goals Short Term Goals ORBITREAD OPERATOR Short Term Goals: cognition Cognition Goal: Pt will use memory strategies taught by ORBITREAD OPERATOR to improve short term memory to facilitate progress to PLOF Time to Achieve Goals: 2 - 3 days Goal Status: new Leisure/Community: Therapeutic day pass appropriate: no Education Caregiver training initiated: No Sexuality education initiated: NA Other education initiated (see Patient Education activity): yes Recommended Discharge Equipment 2 wheeled walker (FWW), 2 wheeled walker (FWW), shower chair, social service liaison, seat riser, sock ai de Barriers to Discharge Barriers to Discharge: Patient's mobility and ADL needs Barrier Resolution Plan: Continued therapy and family teaching Post-Discharge Plan Setting: His home down on the [facility] outside of [facility] Level of Assist Recommended for Discharge: Modified independent for mobility and minimal a ssist for ADLs Anticipate post discharge services: Continued therapy outpatient versus home health Prosthetics/Orthotics therapeutic interventions recommended: fww Admission Date: 11/19/2015 Projected DC Date: 7-8 days, working on hip precautions, will check with re baseline cognition, ST to check also about problems with swallowing pills. Team Goals: 1. Mod i transfers 2. Mod i gait 3. Mod i bed mobility 4. Mod i toileting 5. Mod i dressing Participants: MD: Dr. Man RN: Karey Weiner RN PT: Rachel Alamo, RENZO OT: Taylor Castillo OTR/L ORBITREAD OPERATOR: Suellen Lucas MS, CCC-ORBITREAD OPERATOR CM/SW: KATY Carpenter Following interdisciplinary discussion and planning, I fully agree with the above. lan of Care - Radha Avila RN - 11/20/2015 4:20 AM PDTProblem: Patient Care Overview (Ad ult) Goal: Care Team Goals & Evaluation PROBLEM-RELATED GOALS: Pt will have a pain level of 3/10 by 11/24/15 Pt will not have any falls by 11/24/15 Pt will cont to have intact CMS by 11/22/15 STRATEGY TO ACHIEVE GOALS: Medicate pt as needed and per orders for pain control Frequent reminders to use call light and keep call light in reach at all times Encourage ambulation and ROM RESTRAINT-RELATED GOALS: STRATEGIES TO ACHIEVE RESTRAINT GOALS: Outcome: Improving Goal Evaluation: Pt moved to rehab this raisa. Has been voiding well via urinal. PVR's have b een in the 100"s. Bed alarm on for pt safety since he tried to get oob on his own and stand at the side of the bed. Has denied pain this shift. documente d in this encounter Plan of Treatment +--------+---------+ + + + | Date | Type | Specialty | Care Team | Description | +--------+---------+ + + + | 02/01/ | Office | Cardiology | Jazlyn Almeida, | | | 2019 | Visit | | MD Vikram RICARDO | | | | | | [facility] [place], [place] | | | | | | [id number] | | | | | | | | +--------+---------+ + + + documented as of this encounter Procedures + +--------+ + + + | Procedure Name | Priori | Date/Time | Associated Diagnosis | Comments | | | ty | | | | + +--------+ + + + | BASIC METABOLIC | Routin | 11/22/2015 | | Results for this | | PANEL | e | 2:04 PM | | procedure are in the | | | | PDT | | results section. | + +--------+ + + + | BASIC METABOLIC | Routin | 11/22/2015 | | Results for this | | PANEL | e | 11:48 AM | | procedure are in the | | | | PDT | | results section. | + +--------+ + + + | CBC WITH | Routin | 11/22/2015 | | Results for this | | DIFFERENTIAL | e | 10:14 AM | | procedure are in the | | | | PDT | | results section. | + +--------+ + + + | BASIC METABOLIC | Routin | 11/22/2015 | | Results for this | | PANEL | e | 10:14 AM | | procedure are in the | | | | PDT | | results section. | + +--------+ + + + | CBC WITH | Routin | 11/22/2015 | | Results for this | | DIFFERENTIAL | e | 5:27 AM | | procedure are in the | | | | PDT | | results section. | + +--------+ + + + | BASIC METABOLIC | Routin | 11/22/2015 | | Results for this | | PANEL | e | 5:27 AM | | procedure are in the | | | | PDT | | results section. | + +--------+ + + + | URINALYSIS WITH | Routin | 11/19/2015 | | Results for this | | MICROSCOPIC WITH | e | 10:02 PM | | procedure are in the | | CULTURE IF INDICATED | | PDT | | results section. | + +--------+ + + + documented in this encounter Results Basic Metabolic Panel (11/22/2015 2:04 PM PDT) + + + + + + | Component | Value | Ref Range | Performed | Pathologist | | | | | At | Signature | + + + + + + | Na | 138 | 136 - 149 | [facility] | [...] + + + + | Glucose | 144 (H) | 70 - 109 mg/dL | [facility] | | | | | | [facility] | | [facility] | [facility] | | | | | [facility] - | | | | | | LABORATORY | | + + + + + + | BUN | 31 (H) | 7 - 18 mg/dL | [facility] | | | | | | [facility] | | | | | | [facility] | | | | | | CENTER - | | | | | | LABORATORY | | + + + + + + | Creatinine | 1.12 | 0.60 - 1.30 | [facility] | | | | | mg/dL | [facility] | | | | | | MEDICAL | | | | | | CENTER - | | | | | | LABORATORY | | + + + + + + | eGFR if not | >60Comment: GLOMERULAR | >=60 | [facility] | | | | FILTRATION | mL/min/1.73m2 | [facility] | | | MALAYSIAN | RATE,ESTIMATED | | MEDICAL | | | | mL/min/1.62u5Qbxy than | | CENTER - | | [...] + + + + | BUN/Creatin | 27.7 | | [facility] | | | ine [...] + | [facility] | [address] | [place] | [phone] | | [facility] | | [address] | | | - LABORATORY | | | | + + + + + Basic Metabolic Panel (11/22/2015 11:48 AM PDT) + + + + + [...] + + + + | Glucose | 131 (H) | 70 - 109 mg/dL | [...] + + + + | Creatinine | 1.16 | 0.60 - 1.30 | [facility] | [...] | | | FILTRATION | mL/min/1.73m2 | [facility] | | | MALAYSIAN | RATE,ESTIMATED | | MEDICAL | | | | mL/min/1.12l8Inpm than | | CENTER - | | [...] + + + + | Calcium | 8.8 | 8.3 - 10.5 | [facility] | | | | | mg/dL | [facility] | | | | | | MEDICAL | | | | | | CENTER - | | | | | | LABORATORY | | + + + + + + | BUN/Creatin | 25.9 | | [facility] | | | ine Ratio | | | [facility] | | | | | | MEDICAL | | | | | | CENTER - | | | | | | LABORATORY | | + + + + + + + + | Specimen | + + | Blood | + + + + + + + | Performing | Address | City/State[facility] | Phone Number | | Organization | | | | + + + + + | [facility] | [address] | [place] | [phone] | | [facility] | | [address] | | | - LABORATORY | | | | + + + + + CBC with Differential (11/22/2015 10:14 AM PDT) + + + + + + | Component | Value | Ref Range | Performed | Pathologist | | | | | At | Signature | + + + + + + | White Blood | 4.9 | 4.0 - 11.0 K/uL | [facility] | | | Cells | | | [facility] | | | | | | MEDICAL | | | | | | CENTER - | | | | | | LABORATORY | | + + + + + + | Red Blood | 2.90 (L) | 4.30 - 5.70 | [facility] | | | Cells | | M/uL | [facility] | | | | | | MEDICAL | | | | | | CENTER - | | | | | | LABORATORY | | + + + + + + | Hemoglobin | 9.1 (L) | 13.5 - 18.0 | [facility] | | | | | g/dL | [facility] | | | | | | MEDICAL | | | | | | CENTER - | | | | | | LABORATORY | | + + + + + + | Hematocrit | 26.9 (L) | 40.0 - 51.0 % | [facility] | | | | | | [facility] | | | | | | MEDICAL | | | | | | CENTER - | | | | | | LABORATORY | | + + + + + + | MCV | 92.7 | 83.0 - 101.0 fL | [facility] | | | | | | [facility] | | | | | | MEDICAL | | | | | | CENTER - | | | | | | LABORATORY | | + + + + + + | MCH | 31.3 | 28.0 - 35.0 pg | [facility] | | | | | | [facility] | | | | | | [facility]ICAL | | | | | | CENTER - | | | | | | LABORATORY | | + + + + + + | MCHC | 33.8 | 32.0 - 36.0 | [facility] | | | | | g/dL | [facility] | | | | | | MEDICAL | | | | | | CENTER - | | | | | | LABORATORY | | + + + + + + | RDW-CV | 18.7 (H) | <15.0 % | [facility] | | | | | | [facility] | | | | | | [facility]ICAL | | | | | | CENTER - | | | | | | LABORATORY | | + + + + + + | Platelet | 207 | 140 - 440 K/uL | [facility] [...] + + + + | % | 78.7 | 45.0 - 82.0 % | [facility] | | | Neutrophils | | | [facility] | | | | | | MEDICAL | | | | | | CENTER - | | | | | | LABORATORY | | + + + + + + | % | 10.0 (L) | 20.0 - 45.0 % | [facility] | | | Lymphocytes | | | [facility] | | | | | | MEDICAL | | | | | | CENTER - | | | | | | LABORATORY | | + + + + + + | % Monocytes | 8.5 | 4.0 - 12.0 % | [facility] | | | | | | [facility] | | | | | | MEDICAL | | | | | | CENTER - | | | | | | LABORATORY | | + + + + + + | % | 2.2 | 0.0 - 5.0 % | [facility] [...] + + + + | Absolute | 3.90 | 1.80 - 8.50 | [facility] | | | Neutrophils | | K/uL | [facility] | | | | | | MEDICAL | | | | | | CENTER - | | | | | | LABORATORY | | + + + + + + | Absolute | 0.50 (L) | 0.60 - 3.20 | [facility] | [...] | Basophils | | K/uL | [facility] | [...] [address] | [place] | [phone] | | [facility] | | [address] | | | - LABORATORY | | | | + + + + + Basic Metabolic Panel (11/22/2015 10:14 AM PDT) + + + + + [...] + + + + | Glucose | 141 (H) | 70 - 109 mg/dL | [facility] | | | | | | [facility] | | | [facility] | | MEDICAL | | | | | | CENTER - | | | | | | LABORATORY | | + + + + + + | BUN | 31 (H) | 7 - 18 mg/dL | [facility] | | | | | | [facility] | | | [facility] | | MEDICAL | | | | | | CENTER - | | | | | | LABORATORY | | + + + + + + | Creatinine | 1.22 | 0.60 - 1.30 | [facility] | | | | | mg/dL | [facility] | | | | | | MEDICAL | | | | | | CENTER - | | | | | | LABORATORY | | + + + + + + | eGFR if not | 57 (L)Comment: | >=60 | [facility] | | | | GLOMERULAR FILTRATION | mL/min/1.73m2 | [facility] | | | MALAYSIAN | RATE,ESTIMATED | | MEDICAL | | | | mL/min/1.82s8Xgej than | | CENTER - | | [...] + + + + | Calcium | 8.5 | 8.3 - 10.5 | [facility] | | | | | mg/dL | [facility] | | | | | | MEDICAL | | | | | | CENTER - | | | | | | LABORATORY | | + + + + + + | BUN/Creatin | 25.4 | | [facility] | | | ine [...] + | [facility] | [address] | [place] | [phone] | | [facility] | | [address] | | | - LABORATORY | | | | + + + + + CBC with Differential (11/22/2015 5:27 AM PDT) + + + + + [...] + + + | Red Blood | 2.71 (L) | 4.30 - 5.70 | [facility] | | | Cells | | M/uL | [facility] | | | | | | MEDICAL | | | | | | CENTER - | | | | | | LABORATORY | | + + + + + + | Hemoglobin | 8.6 (L) | 13.5 - 18.0 | [facility] | | | | | g/dL | [facility] | | | | | | MEDICAL | | | | | | CENTER - | | | | | | LABORATORY | | + + + + + + | Hematocrit | 25.3 (L) | 40.0 - 51.0 % | [facility] | | | | | | [facility] | | | | | | MEDICAL | | | | | | CENTER - | | | | | | LABORATORY | | + + + + + + | MCV | 93.2 | 83.0 - 101.0 fL | [facility] | | | | | | [facility] | | | | | | MEDICAL | | | | | | CENTER - | | | | | | LABORATORY | | + + + + + + | MCH | 31.6 | 28.0 - 35.0 pg | [facility] [...] + + + + | RDW-CV | 18.7 (H) | <15.0 % | [facility] | | | | | | [facility] | | | | | | MEDICAL | | | | | | CENTER - | | | | | | LABORATORY | | + + + + + + | Platelet | 188 | 140 - 440 K/uL | [facility] [...] + + + + | % | 67.9 | 45.0 - 82.0 % | [facility] | | | Neutrophils | | | [facility] | | | | | | MEDICAL | | | | | | CENTER - | | | | | | LABORATORY | | + + + + + + | % | 18.4 (L) | 20.0 - 45.0 % | [facility] | | | Lymphocytes | | | [facility] | | | | | | MEDICAL | | | | | | CENTER - | | | | | | LABORATORY | | + + + + + + | % Monocytes | 10.2 | 4.0 - 12.0 % | [facility] | | | | | | [facility] | | | | | | MEDICAL | | | | | | CENTER - | | | | | | LABORATORY | | + + + + + + | % | 3.0 | 0.0 - 5.0 % | [facility] | | | Eosinophils | | | [facility] | | | | | | MEDICAL | | | | | | CENTER - | | | | | | LABORATORY | | + + + + + + | % Basophils | 0.5 | 0.0 - 1.0 % | [facility] [...] + + + + | Absolute | 0.50 | 0.00 - 1.00 | [facility] | | | Monocytes | | K/uL | [facility] | [...] | Basophils | | K/uL | [facility] | [...] [address] | [place] | [phone] | | [facility] | | [address] | | | - LABORATORY | | | | + + + + + Basic Metabolic Panel (11/22/2015 5:27 AM PDT) + + + + + [...] + + + | Anion Gap | 6 | 3 - 16 mmol/L | [facility] | | | | | | [facility] | | | | | | MEDICAL | | | | | | CENTER - | | | | | | LABORATORY | | + + + + + + | Glucose | 127 (H) | 70 - 109 mg/dL | [...] [facility] | | | | | | [facility] | | | | | | [...] | | | FILTRATION | mL/min/1.73m2 | [facility] | | | MALAYSIAN | RATE,ESTIMATED | | MEDICAL | | | | mL/min/1.90y6Ycqb than | | CENTER - | | [...] + + + + | BUN/Creatin | 26.1 | | [facility] | | | ine [...] [address] | [place] | [phone] | | [facility] | | [address] | | | - LABORATORY | | | | + + + + + Urinalysis with Microscopic with Culture if Indicated (11/19/2015 10:02 PM PDT) + + + + + + | Component | Value | Ref Range | Performed | Pathologist | | | | | At | Signature | + + + + + + | Color, | Yellow | Light Yellow, | [facility] | | | Urine | | Yellow, Straw | [facility] | | | | | | MEDICAL | | | | | | CENTER - | | | | | | LABORATORY | | + + + + + + | Clarity, | Clear | Clear | [facility] | | | Urine | | | [facility] | | | | | | MEDICAL | | | | | | CENTER - | | | | | | LABORATORY | | + + + + + + | pH, Urine | 6.0 | 5.0 - 8.0 | [facility] | | | | | | [facility] | | | | | | MEDICAL | | | | | | CENTER - | | | | | | LABORATORY | | + + + + + + | Specific | 1.016 | 1.001 - 1.030 | [facility] | | | [place], | | | [facility] | | | Urine | | | MEDICAL | | | | | | CENTER - | | | | | | LABORATORY | | + + + + + + | Protein, | 30 mg/dL (A) | Negative | [facility] | | | Urine | | | [facility] | | | | | | MEDICAL | | | | | | CENTER - | | | | | | LABORATORY | | + + + + + + | Blood, | Small (A) | Negative | [facility] | | | Urine | | | [facility] | | | | | | MEDICAL | | | | | | CENTER - | | | | | | LABORATORY | | + + + + + + | Glucose, | Negative | Negative | [facility] | | | Urine | | | [facility] | | | | | | MEDICAL | | | | | | CENTER - | | | | | | LABORATORY | | + + + + + + | Ketones, | Negative | Negative | [facility] | | | Urine | | | [facility] | | | | | | MEDICAL | | | | | | CENTER - | | | | | | LABORATORY | | + + + + + + | Bilirubin, | Negative | Negative | [facility] | | | Urine | | | [facility] | | | | | | MEDICAL | | | | | | CENTER - | | | | | | LABORATORY | | + + + + + + | Nitrite, | Negative | Negative | [facility] | | | Urine | | | [facility] | | | | | | MEDICAL | | | | | | CENTER - | | | | | | LABORATORY | | + + + + + + | Leukocyte | Negative | Negative | [facility] | | | Esterase, | | | [facility] | | | Urine | | | MEDICAL | | | | | | CENTER - | | | | | | LABORATORY | | + + + + + + | Urobilinoge | 4.0 mg/dL (A) | 0.2 mg/dL, 1.0 | [facility] | | | n, Urine | | mg/dL, Negative | [facility] | | | | | | MEDICAL | | | | | | CENTER - | | | | | | LABORATORY | | + + + + + + | White Blood | 0-2 | 0 - 2 /HPF | [facility] | | | Cells, | | | [facility] | | | Urine | | | MEDICAL | | | | | | CENTER - | | | | | | LABORATORY | | + + + + + + | Red Blood | 0-2 | 0 - 2 /HPF | [facility] | | | Cells, | | | [facility] | | | Urine | | | MEDICAL | | | | | | CENTER - | | | | | | LABORATORY | | + + + + + + | Squamous | 0-2 | 0 - 2 /LPF | [facility] | | | Epithelial | | | [facility] | | | Cells, | | | MEDICAL | | | Urine | | | CENTER - | | | | | | LABORATORY | | + + + + + + | Bacteria, | 1+ (A) | Negative /HPF | [facility] | | | Urine | | | [facility] | | | | | | MEDICAL | | | | | | CENTER - | | | | | | LABORATORY | | + + + + + + | Mucus, | Present (A) | Negative /LPF | [facility] | | | Urine | | | [facility] | | | | | | MEDICAL | | | | | | CENTER - | | | | | | LABORATORY | | + + + + + + | Urine | Urine Culture Not | | [facility] | | | Comment | Indicated | | [facility] | | | | | | MEDICAL | | | | | | CENTER - | | | | | | LABORATORY | | + + + + + + + + | Specimen | + + | Urine | + + + + + + + | Performing | Address | City/State/Zipcode | Phone Number | | Organization | | | | + + + + + | [facility] 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) | + + | Low hemoglobin Anemia, unspecified | + + documented in this encounter Administered Medications + +--------+ +--------+------+------+ | Medication Order | MAR | Action | Dose | Rate | Site | | | Action | Date | | | | + +--------+ +--------+------+------+ | acetaminophen (TYLENOL) tablet | Given | 11/21/19 | 650 mg | | | | 650 mg 650 mg, Oral, EVERY 6 | | 16 10:34 | | | | | HOURS PRN, Pain, Starting Sun | | PM PDT | | | | | 11/19/15 at 2140, Discharge | | | | | | | Readmit | | | | | | + +--------+ +--------+------+------+ +-------+ +--------+---+---+ | Given | 11/20/19 | 650 mg | | | | | 16 9:14 | | | | | | PM PDT | | | | +-------+ +--------+---+---+ +---+---+ | | | +---+---+ + +-------+ +-------+---+---+ | aspirin chewable tablet 81 mg | Given | 11/22/19 | 81 mg | | | | 81 mg, Oral, DAILY, First dose | | 16 9:36 | | | | | (after last modification) on Mon | | AM PDT | | | | | 11/20/15 at 0900, Discharge | | | | | | | Readmit | | | | | | + +-------+ +-------+---+---+ +-------+ +-------+---+---+ | Given | 11/21/19 | 81 mg | | | | | 16 9:09 | | | | | | AM PDT | | | | +-------+ +-------+---+---+ | Given | 11/20/19 | 81 mg | | | | | 16 9:18 | | | | | | AM PDT | | | | +-------+ +-------+---+---+ +---+---+ | | | +---+---+ + +-------+ +-------+---+---+ | atorvaSTATin (LIPITOR) tablet | Given | 11/21/19 | 80 mg | | | | 80 mg 80 mg, Oral, NIGHTLY, | | 16 8:42 | | | | | First dose (after last | | PM PDT | | | | | modification) on 11/19/15 at | | | | | | | 2200, Discharge Readmit | | | | | | + +-------+ +-------+---+---+ +-------+ +-------+---+---+ | Given | 11/20/19 | 80 mg | | | | | 16 9:14 | | | | | | PM PDT | | | | +-------+ +-------+---+---+ | Given | 11/19/19 | 80 mg | | | | | 16 9:57 | | | | | | PM PDT | | | | +-------+ +-------+---+---+ +---+---+ | | | +---+---+ + +-------+ +-------+---+---+ | clopidogrel (PLAVIX) tablet 75 | Given | 11/22/19 | 75 mg | | | | mg 75 mg, Oral, DAILY, First | | 16 9:36 | | | | | dose (after last modification) on | | AM PDT | | | | | 11/20/15 at 0900, Discharge | | | | | | | Readmit | | | | | | + +-------+ +-------+---+---+ +-------+ +-------+---+---+ | Given | 11/21/19 | 75 mg | | | | | 16 9:09 | | | | | | AM PDT | | | | +-------+ +-------+---+---+ | Given | 11/20/19 | 75 mg | | | | | 16 9:18 | | | | | | AM PDT | | | | +-------+ +-------+---+---+ +---+---+ | | | +---+---+ + +-------+ +--------+---+---+ | docusate sodium (COLACE) | Given | 11/22/19 | 200 mg | | | | capsule 200 mg 200 mg, Oral, 2 | | 16 9:36 | | | | | TIMES DAILY, First dose (after | | AM PDT | | | | | last modification) on 11/19/15 | | | | | | | at 2200, First line agent for | | | | | | | constipation, Discharge Readmit | | | | | | + +-------+ +--------+---+---+ +-------+ +--------+---+---+ | Given | 11/21/19 | 200 mg | | | | | 16 8:42 | | | | | | PM PDT | | | | +-------+ +--------+---+---+ | Given | 11/21/19 | 200 mg | | | | | 16 9:09 | | | | | | AM PDT | | | | +-------+ +--------+---+---+ +---+---+ | | | +---+---+ + +-------+ +------+---+---+ | oxyCODONE (ROXICODONE) tablet 5 | Given | 11/22/19 | 5 mg | | | | mg 5 mg, Oral, EVERY 3 HOURS | | 16 1:06 | | | | | PRN, Pain, Starting 11/19/15 | | AM PDT | | | | | at 2140, If ineffective or not | | | | | | | tolerated use hydromorphone if | | | | | | | ordered., Discharge Readmit | | | | | | + +-------+ +------+---+---+ +---+---+ | | | +---+---+ + +-------+ +-------+---+---+ | pantoprazole (PROTONIX) DR | Given | 11/22/19 | 40 mg | | | | tablet 40 mg 40 mg, Oral, DAILY | | 16 6:23 | | | | | BEFORE BREAKFAST, First dose | | AM PDT | | | | | (after last modification) on Mon | | | | | | | 11/20/15 at 0730, Do not cut or | | | | | | | crush., Discharge Readmit | | | | | | + +-------+ +-------+---+---+ +-------+ +-------+---+---+ | Given | 11/21/19 | 40 mg | | | | | 16 6:36 | | | | | | AM PDT | | | | +-------+ +-------+---+---+ | Given | 11/20/19 | 40 mg | | | | | 16 6:54 | | | | | | AM PDT | | | | +-------+ +-------+---+---+ +---+---+ | | | +---+---+ documented in this encounter
--- OUTSIDE RECORDS SUMMARY | ~2019-12-09 | XMS | Encounter Summary ---
Demographics + + + | Address | [address] | | | [place] [address] | + + + | Home Phone [...] + | Lesia Castaneda | ECON | [address] | | | | | [place] [address] | | + + + + + | Rosina Castaneda | ECON | Unknown | | + + + + + | Sandy Zamora | ECON | [address] | | | | | [place] | | | | | [address] | | + + + + + Care Team Providers + +------+ + | Care Geology Teacher Name | Role | Phone | + +------+ + PCP | Unavailable | + +------+ + Encounter Details +--------+ + + + + | Date | Type | Department | Care Team | Description | +--------+ + + + + | 08/06/ | Hospital | [facility] | Chaitanya Samuel, | | | 2011 - | Encounter | MED CTR CANCER | [place] [address] [facility] | | | | | [place] [address] | [place] | | | 08/23/ | | [place] | [address] | | | 2011 | | [address] | [phone] | | | | | [phone] | | | +--------+ + + + [...] encounter Progress Notes Chaitanya Samuel MD - 07/31/2011 2:08 AM PSTDATE: 08/07/2011 RADIATION ONCOLOGY FOLLOWUP NOTE DIAGNOSIS: Prostate adenocarcinoma. FOLLOWUP NOTE: Mr. Demond Castaneda is a 80-year-old gentleman with a history of adenocarcinom a of the p rostate initially treated with iodine prostate brachytherapy seed implantation b [facility] in 08/1999. He un fortunately was found to have a rising PSA back in 2005 and did recei ve an additional 4500 cGy via ex ternal beam radiation therapy at that time. More recently, he has been treated with androgen suppress ion via Lupron with his last injection being ba ck in 03/2010. He did wish to discontinue the hormone treatments secondary to hot flashes a nd other symptoms. I last saw him back in 01/2011 where he was noted to have a very slight increase in his PSA up to 0.05. The decision was made to have the patient return with repe at PSA in 3 months. He did present for repeat exam 5 months later, was found to hav e a PS A of 0.3 on 07/18/2011. The patient comes in today to discuss these results. The patient states that overall he is feeling well. He denies any present fatigue and janelle es any uri nary symptoms, denies any diarrhea or blood in his stools, denies any unusual lopez ne aches or pains. 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 PHYSICAL EXAMINATION VITAL SIGNS: Blood pressure 140/68, pulse of 60, temperature of 35.9 degrees C, weight 80. 5 kg. GENERAL: The patient is awake, alert, and oriented, in no apparent distress. LYMPH: There is no cervical, supraclavicular, or axillary lymphadenopathy. MUSCULOSKELETAL: There is no tenderness of the spine, upper extremities, lower extremities, or hips. ABDOMEN: Soft, nontender, nondistended. LABORATORY DATA: Serum PSA on 07/18/2011 was 0.3. ASSESSMENT AND PLAN: Mr. Demond Castaneda is 12 years out from completion of his prostate brac hytherapy seed implantation and 6 years out from completion of his adjuvant radiation thera py for increasing PS A. He has also been off the Lupron treatments for approximately 18 mo nths. His testosterone levels a re likely responding as his PSA has gone from 0.05 to 0.3 o bernardo the last approximate 5 to 6 months. O verall, he clinically is doing very well and sta sia that he has been doing rehab associated with knee replacement and feels as good as he h as in a long time. We did discuss possible treatment options at this time secondary to his rising PSA. We did state that we could continue to observe and have him return in 3 months for further followu p with repeat PSA at that time or we could restart the hormone therapy, give him injections of Lupron. We did again disc uss risks and side effects that he associated in the past. A t this time, the patient does wish to hol d off on reinitiation the hormone therapy but to return in 3 months for further followup. DICTATED BY: Chaitanya Samuel MD Radiation Oncology JOB #: [id number] EXT JOB #:[id number] cc: Carrillo Sherman MD <Electronically Signed by Chaitanya Samuel MD> 08/15/11 1820 documented in this encounter Plan of Treatment +--------+---------+ + + + | Date | Type | Specialty | Care Team | Description | +--------+---------+ + + + | 02/01/ | Office | Cardiology | Jazlyn Almeida, | | | 2019 | Visit | | MD Vikram RICARDO | | | | | | [place] | | | | | | [address] | | | | | | | | +--------+---------+ + + + documented as of this encounter Visit Diagnoses Not on filedocumented in this encounter"
--- OUTSIDE RECORDS SUMMARY | ~2019-12-09 | XMS | Encounter Summary ---
Demographics + + + | Address | [address] | | | [place] [address] | + + + | Home Phone [...] + + | Author | [facility] | | | and [place] | + + + | Organization | [facility] | | | and [place] | + + + | Address | Unknown | + + + | Phone | Unavailable | + + + Support + + + + + | Name | Relationship | Address | Phone | + + + + + | Lesia Castaneda | ECON | [address] | | | | | [place] [address] | | + + + + + | Rosina Castaneda | ECON | Unknown | | + + + + + | Sandy Zamora | ECON | [address] | | | | | [place] | | | | | [address] | | + + + + + Care Team Providers + +------+ + | Care Replanter Name | Role | Phone | + +------+ + | Sergio Thompson MD | PCP | | + +------+ + Reason for Visit +---------+--------+ + | Reason | Onset | Comments | | | Date | | +---------+--------+ + | Results | 08/28/ | | | | 2015 | | +---------+--------+ + Encounter Details +--------+ + + + + | Date | Type | Department | Care Team | Description | +--------+ + + + + | 08/28/ | Telephone | [facility] | Demond Castellon | Results | | 2015 | | [facility] | MD [address] | | | | | [facility]OGY CLINIC [address] | [facility] | | | | | [address] [place] | [place] [address] | | | | | [place] [address] | [phone] | | | | | [phone] | | | +--------+ + + + [...] this encounter Miscellaneous Notes Telephone Encounter - Demond Castellon MD - 08/29/2015 4:33 PM PDTTelephone call with patient to give telephone report on bone marrow disclosing striking erythroid hyperplas ia worrisome for possible hemolytic anemia. I have asked patient to return on expedited bas is for additional laboratory testing to investigate such a possibility. elephone Encounter - Terrance Vides - 08/29/2015 1:52 PM PDTDemond had a BMBX done on 08/16/15 and has not heard the results of that. He would like the nurse to call him with those results. documented in this encounter Plan of Treatment +--------+---------+ + + + | Date | Type | Specialty | Care Team | Description | +--------+---------+ + + + | 02/01/ | Office | Cardiology | Jazlyn Almeida, | | | 2019 | Visit | | MD Vikram RICARDO | | | | | | [place] | | | | | | [address] | | | | | | | | +--------+---------+ + + + documented as of this encounter Visit Diagnoses Not on filedocumented in this encounter"
--- OUTSIDE RECORDS SUMMARY | ~2019-12-09 | XMS | Encounter Summary ---
Demographics + + + | Address | [address] | | | [place] [address] | + + + | Home Phone | | + + + | Preferred Language | Unknown | + + + | Marital Status | | + + + | Adventist Affiliation | 1041 | + + + | Race | Unknown | + + + | Ethnic Group | Unknown | + + + Author + + + | Author | [facility] | | | and [place] | + + + | Organization | [facility] | | | and [place] | + + + | Address | Unknown | + + + | Phone | Unavailable | + + + Support + + + + + | Name | Relationship | Address | Phone | + + + + + | Lesia Castaneda | ECON | [address] | | | | | [place] [address] | | + + + + + | Rosina Castaneda | ECON | Unknown | | + + + + + | Sandy Zamora | ECON | [address] | | | | [place] | | | | | [address] | | + + + + + Care Team Providers + +------+ + | Care Research Test Engine Operator Name | Role | Phone | + +------+ + | Jerome Ray | PCP | | | MD | | | + +------+ + Reason for Visit + + + | Reason | Comments | + + + | Follow-up | | + + + Evaluate & Treat (Routine) + +--------+ + + + + | Status | Reason | Specialty | Diagnoses / | Referred By | Referred To | | | | | Procedures | Contact | Contact | + +--------+ + + + + | Authorizatio | | Medical | Diagnoses | Flor, | Ravinder, | | n not | | Oncology / | Carcinoma | Jerome | Demond | | Required | | Oncology | of the | MD Karlos | MD Refugio | | | | | prostate | [address] | [address] | | | | | Aden[place]arcino | Bebe Wilkins | [address] | | | | | ma | Alisha | [place] | | | | | Procedures | [place] | [address] Phone: | | | | | [place] OFFICE | [address] | [phone] | | | | | OUTPATIENT | Phone: | Fax: | | | | | VISIT 25 | [phone] | [phone] | | | | | MINUTES [facility] | Fax: | | | | | | MED ONC | [phone] | | | | | | FOLLOW UP | | | + +--------+ + + + + Encounter Details +--------+ + + + + | Date | Type | Department | Care Team | Description | +--------+ + + + + | 09/15/ | Hospital | [facility] | Demond Castellon | CA prostate, adenoca | | 2020 | Encounter | MED CTR MEDICAL | MD [address] | ([facility]) (Primary Dx) | | | | ONCOLOGY CLINIC [address] | [facility] | | | | | [facility] | [place] [address] | | | | | [place] [address] | [phone] | | | | | [phone] | | | +--------+ + + + [...] +---------+ + + | acetaminophen | Take 500-1,000 mg by | | 0 | | | | (TYLENOL) 500 mg | mouth every 6 hours | | | | | | tablet | as needed for Pain. | | | | | + + + +---------+ + + | aspirin 81 MG | Take 1 tablet by | 56 | 0 | | | | tablet | mouth 2 times daily. | tablet | | | | + + + +---------+ + + | atorvaSTATin | Take 20 mg by mouth | | 0 | 05/16/20 | | | (LIPITOR) 20 mg | nightly. | | | 18 | | | tablet | | | | | | + + + +---------+ + + | clopidogrel | | | 0 | 08/27/19 | | | (PLAVIX) 75 mg | | | | 20 | | | tablet | | | | | | + + + +---------+ + + documented as of this encounter Progress Estelita Sanabria, [facility] - 09/16/2019 8:00 AM PDTREVIEW OF SYSTEMS Constitutional: Denies fatigue. Denies high fevers, shaking chills, anorexia, nausea, vomit ing, weight loss, or night sweats. Appetite without changes. Ear, Nose, Mouth, Throat: Denies odynophagia, dysphagia, or tinnitus. Cardiovascular: Denies shortness of breath, dyspnea on exertion, chest pain, palpitations o r orthopnea. Respiratory: Denies hemoptysis or sputum production. States a morning cough, long standing . Gastrointestinal: Denies abdominal pain, constipation, diarrhea, melena, or bright red bloo d per rectum. Genitourinary: Denies hematuria or dysuria. Musculoskeletal: Denies joint pain or tenderness. Neurologic: Denies visual changes, or numbness/tingling of the extremities. More recent he adaches over the past few weeks. Endocrine: Denies peripheral edema or heat/cold intolerance. Hematologic: Denies spontaneous bruising or bleeding. Integumentary: Denies rash, wounds or other skin concerns. Pain: Denies pain. Note: Telephonic visit. Call transferred into Dr. Castellon. My chart: Demond Ennis MD - 09/16/2019 8:00 AM PDTFormatting of this note might be different from the origi nal. Hem-Onc Progress Note [facility] Pt. Name/Age/: Demond Castaneda 88 y.o. 1930 Med. Record Number: [id number] Date of admission: 09/16/2019 Assessment and plan: 1. 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 Stroke, November, 3. Angina Pectoris, Dec, 2013, S/p PCI, [facility] [place], [place] 4. Fall hip fracture, November,, S/p right THR, Dr Canada 5. S/p right TNR, 2017 Reviewed plans to recheck PSA with patient obtaining lab testing through in her path at [facility] as a more convenient testing. We will contact by phone to review these results. Danelle marquez will then continue regular follow-up through his primary care physician. Subjective: The patient chart and medications were reviewed in detail and the patient was seen and exam ined. Demond Castaneda is a 88 y.o. male who was contacted today by telephone for follow-up bec ause of previous history of biochemical relapse of prostate cancer. Patient doing very well in the now almost 2 months since revision of a previous right hip a rthroplasty. Complications from surgery included an episode of urinary retention with diffi cult placement of folly catheter. Patient ultimately able to discontinue urinary drainage a nd presently enjoying recovery of normal functioning. The revised arthroplasty has worked v sandee well and patient now largely able to walk without pain and describes walking for up to s everal miles on a daily basis. He is also been able to discontinue Plavix with continued an tiplatelet therapy with aspirin. 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 PSH: Reviewed, no changes to admission H&P. Review of Systems: Constitutional: Denies fatigue. Denies high fevers, shaking chills, anorexia, nausea, vomit ing, weight loss, or night sweats. Appetite without changes. Ear, Nose, Mouth, Throat: Denies odynophagia, dysphagia, or tinnitus. Cardiovascular: Denies shortness of breath, dyspnea on exertion, chest pain, palpitations o r orthopnea. Respiratory: Denies hemoptysis or sputum production. States a morning cough, long standing . Gastrointestinal: Denies abdominal pain, constipation, diarrhea, melena, or bright red bloo d per rectum. Genitourinary: Denies hematuria or dysuria. Musculoskeletal: Denies joint pain or tenderness. Neurologic: Denies visual changes, or numbness/tingling of the extremities. More recent he adaches over the past few weeks. Endocrine: Denies peripheral edema or heat/cold intolerance. Hematologic: Denies spontaneous bruising or bleeding. Integumentary: Denies rash, wounds or other skin concerns. Pain: Denies pain. Review of systems as above otherwise negative Scheduled Medications: Continuous Infusions: PRN Meds:. Allergy: Allergies Allergen Reactions Sulfa Antibiotics Nausea And Vomiting Objectives: on Min/Max Temp past 24 hours:No data recorded No intake or output data in the 24 hours ending 09/16/19 0739 Wt. Admission: Wt. Current: Physical Exam: Exam: Diagnostic studies: Electronically signed by: Demond Castellon MD, 09/16/2019 7:39 AM [facility] TIME SPENT 20 MIN. > 50% AT BEDSIDE, WITH FAMILY/PATIENT IN CARE AND GYMNASTICS COACH OR INSTRUCTOR ON UNIT AND CO ORDINATION OF CARE Portions of this chart may have been created with [employer] voice recognition software. Occasi onal wrong-word or sound-alike substitutions may have occurred due to the inherent epperson itations of voice recognition software. Please read the chart carefully and recognize, using context, where these substitutions have occurred. documented in this encounter Plan of Treatment +--------+---------+ + + + | Date | Type | Specialty | Care Team | Description | +--------+---------+ + + + | 02/01/ | Office | Cardiology | Jazlyn Almeida, | | | 2019 | Visit | | MD Vikram RICARDO | | | | | | [place] | | | | | | [address] | | | | | | | | +--------+---------+ + + + documented as of this encounter Visit Diagnoses + + | Diagnosis | + + | CA prostate, adenoca (HCC) - Primary Malignant neoplasm of prostate | + + documented in this encounter"
--- OUTSIDE RECORDS SUMMARY | ~2019-12-09 | XMS | Encounter Summary ---
Demographics + + + | Address | [address] | | | [place] [address] | + + + | Home Phone | | + + + | Preferred Language | Unknown | + + + | Marital Status | | + + + | Baptism Affiliation | 1041 | + + + | Race | Unknown | + + + | Ethnic Group | Unknown | + + + Author + + + | Author | [facility] | | | and [place] | + + + | Organization | [facility] | | | and [place] | + + + | Address | Unknown | + + + | Phone | Unavailable | + + + Support + + + + + | Name | Relationship | Address | Phone | + + + + + | Lesia Rose | ECON | [address] | | | | | [place] [address] | | + + + + + | Rosina Rose | ECON | Unknown | | + + + + + | Sandy Zamora | ECON | [address] | | | | | [place] | | | | | [address] | | + + + + + Care Team Providers + +------+ + | Care Animal Laboratory Technician Name | Role | Phone | + +------+ + PCP | Unavailable | + +------+ + Encounter Details +--------+ + + + + | Date | Type | Department | Care Team | Description | +--------+ + + + + | 11/06/ | Hospital | [facility] | Chaitanya Samuel, | | | 2011 - | Encounter | MED CTR CANCER | [place] [address] [facility] | | | | | [place] [address] | [place] | | | 11/22/ | | [place] | [address] | | | 2011 | | [address] | [phone] | | | | | [phone] | | | +--------+ + + + [...] encounter Progress Notes Chaitanya Samuel MD - 11/07/2011 12:46 AM PDTDATE: 11/07/2011 RADIATION ONCOLOGY FOLLOWUP NOTE DIAGNOSIS Prostate adenocarcinoma. FOLLOWUP NOTE: Mr. Dena Rose is a 80-year-old gentleman with a history of prostate canc er, initially treated with an IODINE prostate brachytherapy implant back in 08/1999. The pa sony was found to have a rising PSA in 2005, and did receive an additional 4500 cGy. He torres s been treated also with hormone suppression via Lupron, but did have his last injection ba ck in 03/2010. Since that time, he has elected to forego any hormone treatment, since overa ll, he states that he has been feeling well. The patient denies any new bony aches or pain s. He does have in his toe on his left foot, and states he has been told by a visual merchandise manager do [employer] in [place] that he needs a joint replacement. He is hesitant to pursue that at this ti me. He denies any changes to his urination. He does have an AUA score of 1 out of a possibl e 35. 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 PHYSICAL EXAMINATION VITAL SIGNS: Blood pressure 122/58, pulse 64, temperature 36.2 degrees Celsius, weight 79. 8 kg. GENERAL: The patient is awake, alert and oriented, no apparent distress. The patient appea rs younger than his stated age. LABS: Serum PSA on 11/07/2011 was 0.61. ASSESSMENT AND PLAN MR. DENA ROSE IS A 80-YEAR-OLD GENTLEMAN WITH A HISTORY OF PROSTATE CANCER[facility], FOLLOWED BY [facility] RADI[facility] THERAPY, AND CONTINUES TO TORRES VE A SLOWLY RISING PSA. The patient's last Lupron injection was in 03/2010, AND the PSA has been slowly creeping up since that time. It did go from 0.3 to 0.6 over the last 3 months. We did discuss whether or not to initiate hormone therapy, and the patient has been hesita nt to do so. He states that he feels great. He states the hormones do decrease his energy somewhat, and cause him hot flashes and night sweats. He would rather get through the tl e season before doing anything. I did state that he did have a short doubling time of only 3 months, but the PSA continued to be very low. I did state that there is a risk that the c ancer could progress into metastatic disease, with possible bony metastases and pain. He di d state that he would prefer to hold off on treating this for now. 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 DICTATED BY: Chaitanya Samuel MD Radiation Oncology JOB #: [id number] EXT JOB #:[id number] cc: Carrillo Sherman MD <Electronically Signed by Chaitanya Samuel MD> 11/24/11 2314 documented in this encounter Plan of Treatment +--------+---------+ + + + | Date | Type | Specialty | Care Team | Description | +--------+---------+ + + + | 02/01/ | Office | Cardiology | Jazlyn Almeida, | | | 2019 | Visit | | MD Vikram RICARDO | | | | | | [place] | | | | | | [address] | | | | | | | | +--------+---------+ + + + documented as of this encounter Procedures + +--------+ + + + | Procedure Name | Priori | Date/Time | Associated Diagnosis | Comments | | | ty | | | | + +--------+ + + + | PSA, DIAGNOSTIC | Routin | 11/07/2011 | | Results for this | | | e | 8:55 AM | | procedure are in the | | | | PDT | | results section. | + +--------+ + + + documented in this encounter Results PSA, Diagnostic (11/07/2011 8:55 AM PDT) + + + + + + | Component | Value | Ref Range | Performed | Pathologist | | | | | At | Signature | + + + + + + | PSA, Total | 0.61Comment: After | 0.00 - 4.00 | [facility] [...] + | [facility] [facility] | [address] | [place] | [phone] | | [facility] | | [address] | | | - LABORATORY | | | | + + + + + | [address] | [address] | [place] | | | [facility] | | [id number] | | | - LABORATORY | | | | + + + + + documented in this encounter Visit Diagnoses Not on filedocumented in this encounter"
--- OUTSIDE RECORDS SUMMARY | ~2019-12-09 | XMS | Encounter Summary ---
Demographics + + + | Address | [address] | | | [place] [address] | + + + | Home Phone | | + + + | Preferred Language | Unknown | + + + | Marital Status | | + + + | Worship Affiliation | 1041 | + + + | Race | Unknown | + + + | Ethnic Group | Unknown | + + + Author + + + | Author | [facility] | | | and [place] | + + + | Organization | [facility] | | | and [place] | + + + | Address | Unknown | + + + | Phone | Unavailable | + + + Support + + + + + | Name | Relationship | Address | Phone | + + + + + | Lesia Castaneda | ECON | [address] | | | | | [place] [address] | | + + + + + | Rosina Castaneda | ECON | Unknown | | + + + + + | Sandy Zamora | ECON | [address] | | | | [place] | | | | | [address] | | + + + + + Care Team Providers + +------+ + | Care Client Care Coordinator Name | Role | Phone | + +------+ + | Sergio Thompson MD | PCP | | + +------+ + Encounter Details +--------+ + + + + | Date | Type | Department | Care Team | Description | +--------+ + + + + | 02/11/ | Hospital | [facility] | Demond Castellon | CA prostate, adenoca | | 2017 | Encounter | [facility] | [facility] [address] | (HCC) (Primary Dx) | | | | [facility] [address] | [facility] | | | | | [address] | [place] [address] | | | | | [place] [address] | [phone] | | | | | [phone] | | | +--------+ + + + [...] + + + | Blood Pressure | 132/60 | 02/11/2017 10:49 AM | | | | | PDT | | + + + + + | Pulse | 66 | 02/11/2017 10:49 AM | | | | | PDT | | + + + + + | Temperature | 35.4 C (95.7 F) | 02/11/2017 10:49 AM | | | | | PDT | | + + + + + | Respiratory Rate | - | - | | + + + + + | Oxygen Saturation | 98% | 02/11/2017 10:49 AM | | | | | PDT | | + + + + + | Inhaled Oxygen | - | - | | | Concentration | | | | + + + + + | Weight | 73.3 kg (161 lb 9.6 | 02/11/2017 10:49 AM | | | | oz) | PDT | | + + + + + | Height | - | - | | + + + + + | Body Mass Index | 21.33 | 11/19/2015 8:00 PM | | | [...] encounter Progress Notes Demond Castellon MD - 02/11/2017 11:37 AM PDTFormatting of this note might be diff erent from the original. Hem-Onc Progress Note [facility] Pt. Name/Age/: Demond Castaneda 86 y.o. 1930 Med. Record Number: [id number] Date of admission: 02/11/2017 Assessment and plan: 1. 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 Stroke, November, 3. Angina Pectoris, Dec, 2013, S/p PCI, [facility], [place] 4. Fall hip fracture, November,, S/p right THR, Dr [place] 5. S/p right TNR, 2016 I discussion today first reviewing patient's earlier PSA determinations from both December an d again today continuing to be stable in the low double digits. This continues a pattern of overall limited disease progression in the years since emergence of biochemical relapse. W e discussed in particular hope patient's current symptomatology entirely consistent with deg enerative disease and not pointing to more aggressive behavior of patient's cancer. Accordingly believe our follow-up can continue at biannual intervals. We did discuss tacti cs to help increase nutrition as a means of stemming further weight loss. Subjective: The patient chart and medications were reviewed in detail and the patient was seen and exam ined. Demond Castaneda is a 86 y.o. male returns today for follow-up monitoring a biochemical r elapse of prostate cancer. Interim history mostly that related to ongoing rehabilitation following hip and then knee r eplacement surgery earlier last year. This was the first year that patient unable to partic ipate in [place] which she [place] much [place]. He had attempted a small ride earlier last week but found that the [place] and valleys produced too much stres s for him to be able to maintain. He continues to experience stiffness and discomfort mostl y in the right knee describing how he must warm the knee up before it can fully extend. He has not however having other pains such as those referable to the axial skeleton. He is andrei re however that he is continuing to lose weight. He describes his appetite and calorie cons umption in comparison to his 's as being much less. PSH: Reviewed, no changes to admission H&P. Past Medical History: Diagnosis Date Actinic keratosis Anemia Basal cell carcinoma of skin CAD (coronary artery disease) Carotid stenosis CVA (cerebral vascular accident) (HCC) Eczema Femur fracture, left (HCC) Fx eight/more rib-closed H/O: facial fractures Hearing loss wears hearing aids Osteoarthritis Pes planus Wears dentures full upper Review of Systems: Constitutional: Denies fatigue-"energy fair". Denies high fevers, shaking chills, anorexia, nausea, vomiting, or night sweats. Appetite without changes. Has lost 3 lbs since last v isit, but states lost about 12 lbs from his usual. Ear, Nose, Mouth, Throat: Denies odynophagia, dysphagia, or tinnitus. Cardiovascular: Denies shortness of breath, dyspnea on exertion, chest pain, palpitations o r orthopnea. Respiratory: Denies cough, hemoptysis, or sputum production. Gastrointestinal: Denies abdominal pain, constipation, diarrhea, melena, or bright red bloo d per rectum. Genitourinary: Denies hematuria or dysuria. Musculoskeletal: Reports hip and knee joint pain & tenderness. Neurologic: Denies headache, visual changes, or numbness/tingling of the extremities. Endocrine: Reports mild right lower leg Edema, denies heat/cold intolerance. Hematologic: Denies spontaneous bruising or bleeding. Bruises fairly easily. Integumentary: Denies rash, wounds or other skin concerns. Pain: Denies pain. Review of systems as above otherwise negative Scheduled Medications: Continuous Infusions: PRN Meds:. Allergy: Allergies Allergen Reactions Sulfa Antibiotics Nausea And Vomiting Current Outpatient Prescriptions on File Prior to Encounter Medication Sig Dispense Refill acetaminophen (TYLENOL) 500 mg tablet Take 1,000 mg by mouth Daily. Takes every am aspirin 81 mg chewable tablet Take 81 mg by mouth Daily. atorvaSTATin (LIPITOR) 80 MG tablet Take 20 mg by mouth nightly. cholecalciferol 5000 UNITS CAPS Take 1 capsule by mouth Daily. 30 capsule 2 clopidogrel (PLAVIX) 75 mg tablet Take 75 mg by mouth Daily. cyanocobalamin (VITAMIN B-12) 500 mcg tablet Take 500 mcg by mouth Daily. MULTIPLE VITAMIN PO Take by mouth Daily. oxyCODONE (ROXICODONE) 5 mg tablet Take 1 tablet by mouth every 3 hours as needed for P ain. 20 tablet 0 No current facility-administered medications on file prior to encounter. Objectives: Temp: 35.4 C (95.7 F) BP: 132/60 Pulse: 66 SpO2: 98 % on Min/Max Temp past 24 hours:Temp Av.4 C (95.7 F) Min: 35.4 C (95.7 F) Max: 3 5.4 C (95.7 F) No intake or output data in the 24 hours ending 02/11/17 1137 Wt. Admission: Weight: 73.3 kg (161 lb 9.6 oz) Wt. Current: Weight: 73.3 kg (161 lb 9.6 oz) Physical Exam: Exam: General: The patient is alert and oriented. No acute distress. HEENT: PERRL, Oral mucosa intact. Neck is supple. Cardiovascular: Regular rate and rhythm, no murmur. Respiratory: Clear to auscultation and percussion. Breast: No gynecomastia Abdomen: Soft, nontender, no hepatospenomegaly. No palpable masses. Bowel sounds present. Genitourinary: Deferred. Extremities: Full extension at both knees. Skin: No rashes, bruising, or petechiae. Lymph: [...] the Assessment and Plan. Recent Labs Lab 02/11/17 0958 WBC 4.5 HGB 10.5* HCT 29.3* PLT 210 Recent Labs Lab 02/11/17 0958 NA 142 K 3.8 CL 106 CO2 25 BUN 27* CREA 1.12 GLU 104 CALCIUM 9.4 BILITOT 2.9* AST 19 ALT 12 ALKPHOS 84 ALBUMIN 4.5 Electronically signed by: Demond Castellon, 02/11/2017 11:37 [facility] TIME SPENT 20 MIN. > 50% AT BEDSIDE, WITH FAMILY/PATIENT IN CARE AND FRONT EDGER ON UNIT AND CO ORDINATION OF CARE Portions of this chart may have been created with Dragon voice recognition software. Occasi onal wrong-word or sound-alike substitutions may have occurred due to the inherent epperson itations of voice recognition software. Please read the chart carefully and recognize, using context, where these substitutions have occurred. Sheila Frey RN - 02/11/2017 10:59 AM PDTREVIEW O F SYSTEMS Constitutional: Denies fatigue-"energy fair". Denies high fevers, shaking chills, anorexia, nausea, vomiting, or night sweats. Appetite without changes. Has lost 3 lbs since last v isit, but states lost about 12 lbs from his usual. Ear, Nose, Mouth, Throat: Denies odynophagia, dysphagia, or tinnitus. Cardiovascular: Denies shortness of breath, dyspnea on exertion, chest pain, palpitations o r orthopnea. Respiratory: Denies cough, hemoptysis, or sputum production. Gastrointestinal: Denies abdominal pain, constipation, diarrhea, melena, or bright red bloo d per rectum. Genitourinary: Denies hematuria or dysuria. Musculoskeletal: Reports hip and knee joint pain & tenderness. Neurologic: Denies headache, visual changes, or numbness/tingling of the extremities. Endocrine: Reports mild right lower leg Edema, denies heat/cold intolerance. Hematologic: Denies spontaneous bruising or bleeding. Bruises fairly easily. Integumentary: Denies rash, wounds or other skin concerns. Pain: Denies pain. Note: 08/02 hip & knee My chart: not using documented in this encounter Plan of Treatment +--------+---------+ + + + | Date | Type | Specialty | Care Team | Description | +--------+---------+ + + + | 02/01/ | Office | Cardiology | Jazlyn Almeida, | | | 2020 | Visit | | MD Vikram RICARDO | | | | | | [place], [place] | | | | | | [address] | | | | | | | | +--------+---------+ + + + documented as of this encounter Procedures + +--------+ + + + | Procedure Name | Priori | Date/Time | Associated Diagnosis | Comments | | | ty | | | | + +--------+ + + + | CBC WITH | STAT | 02/11/2017 | CA prostate, | Results for this | | DIFFERENTIAL | | 9:58 AM | adenoca (HCC) | procedure are in the | | | | PDT | | results section. | + +--------+ + + + | PSA, DIAGNOSTIC | Routin | 02/11/2017 | CA prostate, | Results for this | | | e | 9:58 AM | adenoca (HCC) | procedure are in the | | | | PDT | | results section. | + +--------+ + + + | LACTATE | STAT | 02/11/2017 | CA prostate, | Results for this | | DEHYDROGENASE | | 9:58 AM | adenoca (HCC) | procedure are in the | | | | PDT | | results section. | + +--------+ + + + | COMPREHENSIVE | STAT | 02/11/2017 | CA prostate, | Results for this | | METABOLIC PANEL | | 9:58 AM | adenoca (HCC) | procedure are in the | | | | PDT | | results section. | + +--------+ + + + documented in this encounter Results PSA, Diagnostic (02/11/2017 9:58 AM PDT) + + + + + + | Component | Value | Ref Range | Performed | Pathologist | | | | | At | Signature | + + + + + + | PSA | 13.04 (H) | <=4.00 ng/mL | [facility] | [...] [address] | [place] | [phone] | | [facility] | | [address] | | | - LABORATORY | | | | + + + + + Comprehensive Metabolic Panel (02/11/2017 9:58 AM PDT) + + + + + [...] + + + + | CO2 | 25 | 24 - 31 mmol/L | [facility] | | | | | | [facility] | | [facility] | [facility] | | | | [facility] - | | | | | | LABORATORY | | + + + + + + | Anion Gap | 11 | 3 - 16 mmol/L | [facility] | | | | | | [facility] | | | [facility] | [facility] | | | | | [facility] - | | | | | | LABORATORY | | + + + + + + | Glucose | 104 | 70 - 109 mg/dL | [facility] | | | | | | [facility] | | | | | | [facility] | | | | | | CENTER - | | | | | | LABORATORY | | + + + + + + | BUN | 27 (H) | 7 - 18 mg/dL | [facility] | [facility] | | | | | | [facility] | | | | | | C[facility] - | | | | | | LABORATORY | | + + + + + + | Creatinine | 1.12 | 0.60 - 1.30 | [facility] | | | | | mg/dL | [facility] | | | | | | MEDICAL | | | | | | CENTER - | | | | | | LABORATORY | | + + + + + + | eGFR if not | >60Comment: GLOMERULAR | >=60 | [facility] | | | | FILTRATION | mL/min/1.73m2 | [facility] | | | [place] | RATE,ESTIMATED | | MEDICAL | | | | mL/min/1.46k9Mglo than | | CENTER - | | [...] + + + + | Albumin | 4.5 | 3.2 - 5.0 g/dL | [facility] | | | | | | [facility] | | | | | | [facility] | | | | | | CENTER - | | | | | | LABORATORY | | + + + + + + | Bilirubin | 2.9 (H)Comment: This is | 0.1 - 1.5 [...] + + + + | Total | 7.3 | 6.0 - 7.8 g/dL | [facility] | | | Protein | | | [facility] | | | | | | [facility] | | | | | | CENTER - | | | | | | LABORATORY | | + + + + + + | AST | 19Comment: This is an | 10 - 42 [...] + + + + | ALT | 12Comment: This is an | 6 - 45 [...] + + + + | Alkaline | 84Comment: This is an | 40 - 110 [...] + + | Albumin/Angeles | 1.6 | 0.8 - 2.0 | [facility] | | | bulin Ratio | | | [facility] | | | | | | [facility] | | | | | | CENTER - | | | | | | LABORATORY | | + + + + + + | BUN/Creatin | 24.1 | | [facility] | | | ine [...] [address] | [place] | [phone] | | [facility] | | [address] | | | - LABORATORY | | | | + + + + + CBC with Differential (02/11/2017 9:58 AM PDT) + + + + + [...] + + + | Red Blood | 3.05 (L) | 4.30 - 5.70 | [facility] | | | Cells | | M/uL | [facility] | | | | | | [facility] | | | | | | CENTER - | | | | | | LABORATORY | | + + + + + + | Hemoglobin | 10.5 (L) | 13.5 - 18.0 | [facility] | | | | | g/dL | [facility] | | | | | | [facility] | | | | | | CENTER - | | | | | | LABORATORY | | + + + + + + | Hematocrit | 29.3 (L) | 40.0 - 51.0 % | [facility] | | | | | | [facility] | | | | | | [facility] | | | | | | C[facility] - | | | | | | LABORATORY | | + + + + + + | MCV | 96.1 | 83.0 - 101.0 fL | [facility] | | | | | | [facility] | | | | | | [facility] | | | | | | CENTER - | | | | | | LABORATORY | | + + + + + + | MCH | 34.3 | 28.0 - 35.0 pg | [facility] | | | | | | [facility] | | | | | | [facility] | | | | | | CENTER - | | | | | | LABORATORY | | + + + + + + | MCHC | 35.7 | 32.0 - 36.0 | [facility] | | | | | g/dL | [facility] | | | | | | [facility] | | | | | | CENTER - | | | | | | LABORATORY | | + + + + + + | RDW-CV | 18.1 (H) | <15.0 % | [facility] | | | | | | [facility] | | | | | | [facility] | | | | | | C[facility] - | | | | | | LABORATORY | | + + + + + + | Platelet | 210 | 140 - 440 K/uL | [facility] | | | Count | | | [facility] | | | | | | [facility] | | | | | | CENTER - | | | | | | LABORATORY | | + + + + + + | MPV | 7.0 | fL | [facility] | | | [...] + + + + | % | 19.9 (L) | 20.0 - 45.0 % | [facility] | | | Lymphocytes | | | [facility] | | | | | | [facility] | | | | | | CENTER - | | | | | | LABORATORY | | + + + + + + | % Monocytes | 8.4 | 4.0 - 12.0 % | [facility] | | | | | | [facility] | | | | | | [facility] | | | | | | CENTER - | | | | | | LABORATORY | | + + + + + + | % | 1.2 | 0.0 - 5.0 % | [facility] [...] + + + + | Absolute | 3.10 | 1.80 - 8.50 | [facility] | | | Neutrophils | | K/uL | [facility] | [...] | | Eosinophils | | K/uL | [facility] | [...] + | [facility] | [address] | [place] | [phone] | | [facility] | | [address] | | | - LABORATORY | | | | + + + + + Lactate Dehydrogenase (02/11/2017 9:58 AM PDT) + +---------+ + + + | Component | Value | Ref Range | Performed | Pathologist | | | | | At | Signature | + +---------+ + + + | LDH TOTAL | 182 (H) | 91 - 180 U/L | [...] [address] | [place] | [phone] | | [facility] | | [address] | | | - LABORATORY | | | | + + + + + documented in this encounter Visit Diagnoses + + | Diagnosis | + + | CA prostate, adenoca (HCC) - Primary Malignant neoplasm of prostate | + + documented in this encounter
--- OUTSIDE RECORDS SUMMARY | ~2019-12-09 | XMS | Encounter Summary ---
Demographics + + + | Address | [address] | | | [place] [address] | + + + | Home Phone | | + + + | Preferred Language | Unknown | + + + | Marital Status | | + + + | Restoration Affiliation | 1041 | + + + | Race | Unknown | + + + | Ethnic Group | Unknown | + + + Author + + + | Author | [facility] | | | and [place] | + + + | Organization | [facility] | | | and [place] | + + + | Address | Unknown | + + + | Phone | Unavailable | + + + Support + + + + + | Name | Relationship | Address | Phone | + + + + + | Lesia Castaneda | ECON | [address] | | | | | [place] [address] | | + + + + + | Rosina Castaneda | ECON | Unknown | | + + + + + | Sandy Zamora | ECON | [address] | | | | | [place] | | | | | [address] | | + + + + + Care Team Providers + +------+ + | Care Ordnance Truck Installation Mechanic Name | Role | Phone | + +------+ + PCP | Unavailable | + +------+ + Encounter Details +--------+ + + + + | Date | Type | Department | Care Team | Description | +--------+ + + + + | 04/20/ | Hospital | [facility] | | | | 2007 - | Encounter | [facility] | | | | | | CENTER [address] | | | | 04/24/ | | [place] | | | | 2007 | | [address] | | | | | | [phone] | | | +--------+ + + + [...] | | | | | [place], [place] | | | | | | [address] | | | | | | | | +--------+---------+ + + + documented as of this encounter Visit Diagnoses Not on filedocumented in this encounter"
--- OUTSIDE RECORDS SUMMARY | ~2019-12-09 | XMS | Encounter Summary ---
Demographics + + + | Address | [address] | | | [place] [address] | + + + | Home Phone | | + + + | Preferred Language | Unknown | + + + | Marital Status | | + + + | Adventist Affiliation | [id number] | + + + | Race | Unknown | + + + | Ethnic Group | Unknown | + + + Author + + + | Author | [facility] | | | and [place] | + + + | Organization | [facility] | | | and [place] | + + + | Address | Unknown | + + + | Phone | Unavailable | + + + Support + + + + + | Name | Relationship | Address | Phone | + + + + + | Lesia Castaneda | ECON | [address] | | | | | [place] [address] | | + + + + + | Rosina Castaneda | ECON | Unknown | | + + + + + | Sandy Zamora | ECON | [address] | | | | [place] | | | | | [address] | | + + + + + Care Team Providers + +------+ + | Care Tank Farm Gauger Name | Role | Phone | + [...] | | | | Diagnoses | | Argenis, | | | | | Other iron | | Demond Devine MD | | | | | deficiency | | [address], | | | | | anemia | | [address] | | | | | Hematest | | [place], | | | | | positive | | [place] [address] | | | | | stools | | Phone: | | | | | Other iron | | [phone] | | | | | deficiency | | Fax: | | | | | anemia | | [phone] | | | | | [D50.8] | | | | | | | Hematest | | | | | | | positive | | | | | | | stools | | | | | | | [R19.5] | | | | | | | Procedures | | | | | | | ID | | | | | | | COLONOSCOPY | | | | | | | FLX DX | | | | | | | W/COLLJ SPEC | | | | | | | WHEN PFRMD | | | | | | | ID | | | | | | | ESOPHAGOGAST | | | | | | | RODUODENOSCO | | | | | | | PY TRANSORAL | | | | | | | DIAGNOSTIC | | | +--------+--------+ + + + + Encounter Details +--------+ + + + + | Date | Type | Department | Care Team | Description | +--------+ + + + + | 07/24/ | Hospital | [facility] | Demond More MD | 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 | [facility] | [address], [address] | anemia due to | | | | [address] | [address] [place] [place] | chronic blood loss | | | | [place] | [address] | (Primary Dx); | | | | [address] | | Gastrointestinal | | | | [phone] | | hemorrhage, | | | | | | unspecified | | | | | | gastrointestinal | | | | | | hemorrhage type | +--------+ + + + + Social [...] + + + | Blood Pressure | 132/62 | 07/25/2015 11:30 AM | | | | | PST | | + + + + + | Pulse | 59 | 07/25/2015 11:30 AM | | | | | PST | | + + + + + | Temperature | 37.1 C (98.8 F) | 07/25/2015 11:04 AM | | | | | PST | | + + + + + | Respiratory Rate | 18 | 07/25/2015 9:09 AM | | | | | PST | | + + + + + | Oxygen Saturation | 99% | 07/25/2015 11:30 AM | | | | | PST | | + + + + + | Inhaled Oxygen | - | - | | | Concentration | | | | + + + + + | Weight | 76.2 kg (167 lb 15.9 | 07/25/2015 9:09 AM | | | | oz) | PST | | + + + + + | Height | 185.4 cm (6' 1") | 07/25/2015 9:09 AM | | | | | PST | | + + + + + | Body Mass Index | 22.16 | 07/25/2015 9:09 AM | | | [...] mg by | | 0 | | 12/04/201 | | (TYLENOL) 500 mg | mouth [...] +---------+ + + | celecoxib | Take 100 mg by mouth | | 0 | | | | (CELEBREX) 100 mg | Daily. As needed. | | | | 6 | | [...] + + + +---------+ + + | ferrous sulfate | Take 1 tablet by | 100 | 2 | 06/16/19 | | | 325 mg tablet | mouth daily (with | tablet | | 16 | 6 | | | breakfast). | | | | | + + + +---------+ + + | MULTIPLE VITAMIN | Take by mouth | | 0 | | | | PO | Daily. | | | | 9 | + + + +---------+ + + documented as of this encounter H&P Notes Demond More MD - 07/25/2015 10:26 AM PSTThe patient has no questions consent forms are signed the patient noticed no bleeding with bowel prep. He's had no angina or anginal equiv alent since seen in the office we'll proceed with upper endoscopy colonoscopy for evaluation of anemia arriDemond MD - 07/03/2015 4:25 PM PST Subjective: Patient ID: Demond Castaneda is a 84 y.o. male. HPI Comments: Patient is seen for the evaluation of anemia heme positive stools Patient reports that he has had anemia for a considerable length of time although he is eladio ble to identify the duration of anemia Looking back through the chart he's had a hemoglobin of 10 1-10 .4 a year ago. It has however dropped to 8.4. In April of this year Apparent ly stools were heme positive. The patient reports that he has the onset of the clinical sym ptoms of left arm and shoulder pain in April. As his symptoms were identical to anginal equivalent that was treated with stent placement in 2013 he was referred back to [place]. A repeat cardiovascular evaluation in April 2015 was negative for any significant lesions . He had one stent placed in June 2013 and has been on Plavix and aspirin since that ti me. Patient himself has noticed no blood in the stools. His stools are currently dark as h nikky is on iron. Patient denies any change in bowel pattern. He denies any past symptoms of r eflux or peptic ulcer disease. he has not been aware of any previous episodes of bleeding. There is no family history of colon cancer or polyps. 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 View of systems is positive for po ssible anginal equivalent decreased exercise tolerance Other Associated symptoms include arthralgias, fatigue, myalgias and weakness. Filed Vitals: 07/03/15 1553 BP: 110/56 Pulse: 58 Resp: 16 PainSc: 0 - No pain No Known Allergies Past Medical History Diagnosis Date CAD (coronary artery disease) Anemia CVA (cerebral vascular accident) (HCC) Carotid stenosis Femur fracture, left (HCC) Basal cell carcinoma of skin Actinic keratosis Eczema Osteoarthritis Hearing loss Pes planus Past Surgical History Procedure Laterality Date Cath placement 05/23/15 Coronary artery stent 07/07/14 Left femur fracture repair Brachytherapy breast History reviewed. No pertinent family history. History Social History Marital Status: Spouse Name: N/A Number of Children: N/A Years of Education: N/A Social History Main Topics Smoking status: Former Smoker Smokeless tobacco: Never Used Alcohol Use: None Drug Use: None Sexual Activity: None Other Topics Concern None Social History Narrative Review of Systems Constitutional: Positive for activity change and fatigue. HENT: Positive for hearing loss and trouble swallowing. Respiratory: Positive for shortness of breath. Musculoskeletal: Positive for myalgias and arthralgias. Neurological: Positive for weakness. All other systems reviewed and are negative. Objective: Physical Exam Constitutional: He is oriented to person, place, and time. He appears well-developed and we ll-nourished. No distress. HENT: Head: Normocephalic and atraumatic. Right Ear: External ear normal. Left Ear: External ear normal. Nose: Nose normal. Mouth/Throat: Oropharynx is clear and moist. No oropharyngeal exudate. Eyes: Conjunctivae and EOM are normal. Pupils are equal, round, and reactive to light. Righ t eye exhibits no discharge. Left eye exhibits no discharge. No scleral icterus. Neck: Neck supple. No JVD present. No tracheal deviation present. Cardiovascular: Normal rate, regular rhythm, normal heart sounds and intact distal pulses. Exam reveals no gallop and no friction rub. No murmur heard. Pulmonary/Chest: Effort normal and breath sounds normal. No stridor. No respiratory distres s. He has no wheezes. He has no rales. He exhibits no tenderness. Abdominal: Soft. Bowel sounds are normal. He exhibits no distension and no mass. There is n o tenderness. There is no rebound and no guarding. Musculoskeletal: Normal range of motion. He exhibits no edema or tenderness. Lymphadenopathy: He has no cervical adenopathy. Neurological: He is alert and oriented to person, place, and time. No cranial nerve deficit . He exhibits normal muscle tone. Coordination normal. Skin: Skin is warm and dry. No rash noted. He is not diaphoretic. No erythema. No pallor. Psychiatric: He has a normal mood and affect. His behavior is normal. Judgment and thought content normal. Nursing note and vitals reviewed. Assessment: Progressive anemia with heme-positive stools possible occult GI blood loss contributing to the same Heme positive stools possible from brachyotherapy for prostatic carcinoma Atherosclerotic cardiovascular disease status post stent placement on aspirin and Plavix th erapy History of CVA with no residual Plan: Upper endoscopy colonoscopy. If the above studies are negative for source of GI blood loss small bowel capsule endoscopy should be considered. As the patient is one year from stent placement Plavix continuation for 5 days or to the procedures is appropriate Portions of this report were transcribed using voice recognition software. Every effort wa s made to ensure accuracy; however, inadvertent computerized dowel pin man errors may be pre sent. documented in this enc ounter Miscellaneous Notes Op Note - Demond More MD - 07/25/2015 11:02 AM PSTUpper endoscopy showed irregular Z li ne at 40 cm at. In her antral gastritis H. pylori biopsy was obtained duodenum mucosa appea red normal and therefore biopsies were not obtained. Colonoscopy was within normal limits a lthough tortuous and redundant check a CBC and if continues low and perhaps small bowel caps ule study is indicated d ocumented in this encounter Plan of Treatment +--------+---------+ + + + | Date | Type | Specialty | Care Team | Description | +--------+---------+ + + + | 02/01/ | Office | Cardiology | Jazlyn Almeida, | | | 2019 | Visit | | MD Vikram RICARDO | | | | | | [address] [place], [place] | | | | | | [address] | | | | | | | | +--------+---------+ + + + documented as of this encounter Procedures + +--------+ + + + | Procedure Name | Priori | Date/Time | Associated Diagnosis | Comments | | | ty | | | | + +--------+ + + + | CBC WITH | Routin | 07/25/2015 | | Results for this | | DIFFERENTIAL | e | 11:26 AM | | procedure are in the | | | | PST | | results section. | + +--------+ + + + | HELICOBACTER PYLORI | Routin | 07/25/2015 | | Results for this | | BIOPSY | e | 10:34 AM | | procedure are in the | | | | PST | | results section. | + +--------+ + + + | EGD / COLONOSCOPY | | 07/25/2015 | Other iron | | | | | 10:27 AM | deficiency anemia | | | | | PST | Hematest positive | | | | | | stools | | + +--------+ + + + | EGD | Routin | 07/25/2015 | | Results for this | | | e | 10:25 AM | | procedure are in the | | | | PST | | results section. | + +--------+ + + + | COLONOSCOPY | Routin | 07/25/2015 | | Results for this | | | e | 10:24 AM | | procedure are in the | | | | PST | | results section. | + +--------+ + + + documented in this encounter Results CBC with Differential (07/25/2015 11:26 AM PST) + + + + + + | Component | Value | Ref Range | Performed | Pathologist | | | | | At | Signature | + + + + + + | White Blood | 3.5 (L) | 4.0 - 11.0 K/uL | [facility] | | | Cells | | | [facility] | | | | | | [facility] | | | | | | [facility] - | | | | | | LABORATORY | | + + + + + + | Red Blood | 2.69 (L) | 4.30 - 5.70 | [facility] | | | Cells | | M/uL | [facility] | | | | | | [facility] | | | | | | [facility] - | | | | | | LABORATORY | | + + + + + + | Hemoglobin | 8.8 (L) | 13.5 - 18.0 | [facility] | | | | | g/dL | [facility] | | | | | | [facility] | | | | | | [facility] - | | | | | | LABORATORY | | + + + + + + | Hematocrit | 26.1 (L) | 40.0 - 51.0 % | [facility] | | | | | | [facility] | | | | | | [facility] | | | | | | [facility] - | | | | | | LABORATORY | | + + + + + + | MCV | 96.9 | 83.0 - 101.0 fL | [facility] | | | | | | [facility] | | | | | | [facility] | | | | | | [facility] - | | | | | | LABORATORY | | + + + + + + | MCH | 32.8 | 28.0 - 35.0 pg | [facility] | | | | | | [facility] | | | | | | [facility] | | | | | | [facility] - | | | | | | LABORATORY | | + + + + + + | MCHC | 33.8 | 32.0 - 36.0 | [facility] | | | | | g/dL | [facility] | | | | | | [facility] | | | | | | [facility] - | | | | | | LABORATORY | | + + + + + + | RDW-CV | 18.4 (H) | <15.0 % | [facility] | | | | | | [facility] | | | | | | [facility] | | | | | | [facility] - | | | | | | LABORATORY | | + + + + + + | Platelet | 148 | 140 - 440 K/uL | [facility] | | | Count | | | [facility] | | | | | | [facility] | | | | | | [facility] - | | | | | | LABORATORY | | + + + + + + | MPV | 7.1 | fL | [facility] | | | | | | [facility] | | | | | | [facility] | | | | | | [facility] - | | | | | | LABORATORY | | + + + + + + | % | 72.7 | 45.0 - 82.0 % | [facility] | | | Neutrophils | | | [facility] | | | | | | [facility] | | | | | | C[facility] - | | | | | | LABORATORY | | + + + + + + | % | 16.8 (L) | 20.0 - 45.0 % | [facility] | | | Lymphocytes | | | [facility] | | | | | | [facility] | | | | | | [facility] - | | | | | | LABORATORY | | + + + + + + | % Monocytes | 9.2 | 4.0 - 12.0 % | [facility] | | | | | | [facility] | | | | | | [facility] | | | | | | [facility] - | | | | | | LABORATORY | | + + + + + + | % | 0.8 | 0.0 - 5.0 % | [facility] | | | Eosinophils | | | [facility] | | | | | | [facility] | | | | | | CENTER - | | | | | | LABORATORY | | + + + + + + | % Basophils | 0.5 | 0.0 - 1.0 % | [facility] | | | | | | [facility] | | | | | | [facility] | | | | | | [facility] - | | | | | | LABORATORY | | + + + + + + | Absolute | 2.60 | 1.80 - 8.50 | [facility] | | | Neutrophils | | K/uL | [facility] | | | | | | [facility] | | | | | | CENTER - | | | | | | LABORATORY | | + + + + + + | Absolute | 0.60 | 0.60 - 3.20 | [facility] | | | Lymphocytes | | K/uL | [facility] | | | | | | MED[facility] [...] [address] | [place] | [phone] | | [facility] | | [address] | | | - LABORATORY | | | | + + + + + Helicobactor pylori Biopsy (07/25/2015 10:34 AM PST) + + + + + + | Component | Value | Ref Range | Performed | Pathologist | | | | | At | Signature | + + + + + + | Helicobacte | Negative | Negative | [facility] | | | r pylori Ag | | | [facility] | | | | | | [facility] | | | | | | CENTER - | | | | | | LABORATORY | | + + + + + + + + | Specimen | + + | Tissue - Entire | | pyloric antrum (body | | structure) | + + + + + + + | Performing | Address | City/State/Zipcode | Phone Number | | Organization | | | | + + + + + | [facility] | [address] | [place] | [phone] | | [facility] | | [address] | | | - LABORATORY | | | | + + + + + EGD (07/25/2015 10:25 AM PST) + + | Specimen | + + | | + + + + -+ | Narrative | Performed At | + + -+ | | [facility] | | GastroenterologyPatient Name: Demond Mirza Date: 07/25/2015 | [place] | | 10:25 AMMRN: [id number] #: [id number] of : | | | 2Admit Type: AmbulatoryAge: 84Room: [facility] 01Gender: MaleNote | | | Status: FinalizedAttending MD: Demond More, [facility]cedure: | | | Upper GI endoscopyIndications: Acute post hemorrhagic | | | anemia, Heme positive stoolProviders: Demond More MD, | | | CHELY WING, [employer] Tr[employer] Manager, Rosina Ace | | | Aram, [employer] Tr[employer] Farm Manager, Pipo Dickerson MD (Anesthesia Staff)Referring MD: | | | Sergio Thompson Md (Referring MD)Medicines: | | | Sedation Required Anesthesia Staff AssistanceComplications: No | | | immediate complications. Estimated blood loss: Minimal.Procedure: | | | Pre-Anesthesia Assessment: - Prior to the procedure, a | | | History and Physical was performed, and patient medications, | | | allergies and sensitivities were reviewed. The patient's | | | tolerance of previous anesthesia was reviewed. - Prior to the | | | procedure, a History and Physical was performed, and patient | | | medications and allergies were reviewed. The patient is | | | competent. The risks and benefits of the procedure and the sedation | | | options and risks were discussed with the patient. All questions | | | were answered and informed consent was obtained. Patient | | | identification and proposed procedure were verified by the | | | physician, the nurse, the anesthesiologist and the nuclear fuel processing technician | | | in the endoscopy suite. Mental Status Examination: alert and | | | oriented. Airway Examination: normal oropharyngeal airway and | | | neck mobility and Mallampati Class II (the uvula but not | | | tonsillar pillars visualized). Prophylactic Antibiotics: The | | | patient does not require prophylactic antibiotics. Prior | | | Anticoagulants: The patient has taken Plavix (clopidogrel), last dose | | | was day of procedure. ASA Grade Assessment: III - A patient | | | with severe systemic disease. After reviewing the risks and | | | benefits, the patient was deemed in satisfactory condition to | | | undergo the procedure. The anesthesia plan was to use monitored | | | anesthesia care (MAC). Immediately prior to administration of | | | medications, the patient was re-assessed for adequacy to | | | receive sedatives. The heart rate, respiratory rate, oxygen | | | saturations, blood pressure, adequacy of pulmonary ventilation, and | | | response to care were monitored throughout the procedure. The | | | physical status of the patient was re-assessed after the | | | procedure. - After reviewing the risks and benefits, the patient | | | was deemed in satisfactory condition to undergo the procedure. | | | - Using IV propofol under the supervision of an | | | anesthesiologist was determined to be medically necessary for | | | this procedure based on age 65 or older and severe comorbidity | | | (greater than ASA Grade II). - Immediately prior to | | | administration of medications, the patient was re-assessed for | | | adequacy to receive sedatives. - The heart rate, respiratory | | | rate, oxygen saturations, blood pressure, adequacy of pulmonary | | | ventilation, and response to care were monitored throughout | | | the procedure. - The physical status of the patient was | | | re-assessed after the procedure. After obtaining informed | | | consent, the endoscope was passed under direct vision. | | | Throughout the procedure, the patient's blood pressure, pulse, | | | and oxygen saturations were monitored continuously. The endoscope was | | | introduced through the mouth, and advanced to the third part of | | | duodenum. The upper GI endoscopy was accomplished without | | | difficulty. The patient tolerated the procedure well.Findings: | | | The cricopharyngeus, upper third of the esophagus, lower third | | | of the esophagus and lower esophageal sphincter were normal. | | | The Z-line was irregular and was found 40 cm from the incisors. | | | Localized moderately erythematous mucosa without bleeding was | | | found in the prepyloric region of the stomach. Biopsies were | | | taken with a cold forceps for Helicobacter pylori testing using | | | CLOtest. Verification of patient identification for the | | | specimen was done. Estimated blood loss was minimal. The | | | duodenal bulb, first part of the duodenum, 2nd part of the duodenum, | | | area of the papilla and 3rd part of the duodenum were normal. | | | The retroflexed view confirmed previous findings,Impression: | | | - Normal cricopharyngeus, upper third of esophagus, lower third of | | | esophagus and lower esophageal sphincter. - Z-line | | | irregular, 40 cm from the incisors. - Erythematous mucosa in the | | | prepyloric region of the stomach. Biopsied. - Normal duodenal | | | bulb, first part of the duodenum, 2nd part of the duodenum, | | | area of the papilla and 3rd part of the duodenum. - The | | | retroflexed view confirmed previous findings,Recommendation: - | | | Written discharge instructions were provided to the patient. - | | | Discharge patient to home (ambulatory). - Return to previous | | | diet today. - Perform a colonoscopy today. - Continue | | | present medications. - Return to primary care physician as | | | previously scheduled. - Telephone GI clinic for pathology | | | results in 1 week.Demond More MD07/25/2015 11:06 AMThis report has | | | been signed electronically.Number of Addenda: 0Note Initiated On: | | | 07/25/2015 10:25 AMScope Withdrawal Time: 0 hours 0 minutes 0 seconds | | | Total Procedure Duration: 0 hours 3 minutes 29 seconds Scope In: | | | 10:33:11 AMScope Out: 10:36:40 AM [facility] | | | Center, [address] [place] [id number] | | | - Perform a colonoscopy today. | | | - Continue present medications. | | | - Return to primary care physician as previously scheduled. | | | - Telephone GI clinic for pathology results in 1 week. | | |Demond More MD | | |07/25/2015 11:06 AM | | |This report has been signed electronically. | | |Number of Addenda: 0 | | |Note Initiated On: 07/25/2015 10:25 AM | | |Scope Withdrawal Time: 0 hours 0 minutes 0 seconds | | |Total Procedure Duration: 0 hours 3 minutes 29 seconds | | |Scope In: 10:33:11 AM | | |Scope Out: 10:36:40 AM | | | [facility], [address] [place] [address] | | | [id number] | | + + -+ + +---------+ + + | Performing | Address | City/State/Zipcode | Phone Number | | Organization | | | | + +---------+ + + | [facility] [place] | | | | + +---------+ + + COLONOSCOPY (07/25/2015 10:24 AM PST) + + | Specimen | + + | | + + + + -+ | Narrative | Performed At | + + -+ | | [facility] | | GastroenterologyPatient Name: Demond Mirza Date: 07/25/2015 | [place] | | 10:24 AMMRN: [id number] #: [id number] of : | | | 1930d[place] Type: AmbulatoryAge: 84Room: [facility] 01Gender: MaleNote | | | Status: FinalizedAttending MD: Demond More, MDProcedure: | | | ColonoscopyIndications: Heme positive stool, | | | AnemiaProviders: Demond More MD, Marquita Anderson RN, | | | CHELY WING, [employer] Manager, Rosina Ace | | | Aram, [employer] Farm Manager, Pipo Dickerson MD | | | (Anesthesia Staff)Referring MD: Sergio Thompson Md | | | (Referring MD)Medicines: Sedation Required Anesthesia | | | Staff AssistanceComplications: No immediate complications. | | | Estimated blood loss: None.Procedure: Pre-Anesthesia Assessment: | | | - Prior to the procedure, a History and Physical was performed, | | | and patient medications, allergies and sensitivities were | | | reviewed. The patient's tolerance of previous anesthesia was | | | reviewed. - Prior to the procedure, a History and Physical was | | | performed, and patient medications and allergies were reviewed. | | | The patient is competent. The risks and benefits of the | | | procedure and the sedation options and risks were discussed | | | with the patient. All questions were answered and informed | | | consent was obtained. Patient identification and proposed | | | procedure were verified by the physician, the nurse, the | | | anesthesiologist and the nuclear fuel processing technician in the endoscopy suite. Mental | | | Status Examination: alert and oriented. Airway Examination: normal | | | oropharyngeal airway and neck mobility and Mallampati Class II | | | (the uvula but not tonsillar pillars visualized). Prophylactic | | | Antibiotics: The patient does not require prophylactic | | | antibiotics. Prior Anticoagulants: The patient has taken no | | | previous anticoagulant or antiplatelet agents. ASA Grade | | | Assessment: III - A patient with severe systemic disease. After | | | reviewing the risks and benefits, the patient was deemed in | | | satisfactory condition to undergo the procedure. The anesthesia | | | plan was to use monitored anesthesia care (MAC). Immediately | | | prior to administration of medications, the patient was re-assessed | | | for adequacy to receive sedatives. The heart rate, respiratory | | | rate, oxygen saturations, blood pressure, adequacy of pulmonary | | | ventilation, and response to care were monitored throughout | | | the procedure. The physical status of the patient was | | | re-assessed after the procedure. - After reviewing the risks and | | | benefits, the patient was deemed in satisfactory condition to | | | undergo the procedure. - Using IV propofol under the supervision | | | of an anesthesiologist was determined to be medically | | | necessary for this procedure based on age 65 or older and | | | severe comorbidity (greater than ASA Grade II). - Immediately | | | prior to administration of medications, the patient was | | | re-assessed for adequacy to receive sedatives. - The heart rate, | | | respiratory rate, oxygen saturations, blood pressure, adequacy | | | of pulmonary ventilation, and response to care were monitored | | | throughout the procedure. - The physical status of the patient | | | was re-assessed after the procedure. After I obtained informed | | | consent, the scope was passed under direct vision. Throughout | | | the procedure, the patient's blood pressure, pulse, and oxygen | | | saturations were monitored continuously. The endoscope was | | | introduced through the anus and advanced to the cecum, identified by | | | the appendiceal orifice, ileocecal valve and palpation. The | | | colonoscopy was somewhat difficult due to significant looping | | | and a tortuous colon. Successful completion of the procedure | | | was aided by using manual pressure, straightening and | | | shortening the scope to obtain bowel loop reduction and using | | | scope torsion. The patient tolerated the procedure well. The | | | quality of the bowel preparation was good.Findings: The perianal | | | and digital rectal examinations were normal. Pertinent | | | negatives include normal sphincter tone and no palpable rectal | | | lesions. The sigmoid colon, splenic flexure and hepatic flexure | | | were significantly tortuous. The descending colon and | | | transverse colon were significantly redundant. The exam was | | | otherwise without abnormality. The retroflexed view of the | | | distal rectum and anal verge was normal and showed no anal or | | | rectal abnormalities.Impression: - Tortuous colon. - | | | Redundant colon. - The examination was otherwise normal. - | | | The distal rectum and anal verge are normal on retroflexion | | | view.Recommendation: - Written discharge instructions were | | | provided to the patient. - Discharge patient to home | | | (ambulatory). - Return to previous diet today. - Continue | | | present medications. - Return to primary care physician as | | | previously scheduled. - Telephone GI clinic if symptomatic.Demond | | | Joceline More MD07/25/2015 11:10 AMThis report has been signed | | | electronically.Number of Addenda: 0Note Initiated On: 07/25/2015 10:24 | | | AMScope Withdrawal Time: 0 hours 9 minutes 45 seconds Total Procedure | | | Duration: 0 hours 20 minutes 14 seconds Scope In: 10:38:58 AMScope | | | Out: 10:59:12 AM [facility], [address] | | | [place] [address] | | | - Discharge patient to home (ambulatory). | | | - Return to previous diet today. | | | - Continue present medications. | | | - Return to primary care physician as previously scheduled. | | | - Telephone GI clinic if symptomatic. | | |Demond More MD | | |07/25/2015 11:10 AM | | |This report has been signed electronically. | | |Number of Addenda: 0 | | |Note Initiated On: 07/25/2015 10:24 AM | | |Scope Withdrawal Time: 0 hours 9 minutes 45 seconds | | |Total Procedure Duration: 0 hours 20 minutes 14 seconds | | |Scope In: 10:38:58 AM | | |Scope Out: 10:59:12 AM | | | [facility], [address] [place], [place] | | | [address] | | + + -+ + +---------+ + + | Performing | Address | City/State/Zipcode | Phone Number | | Organization | | | | + +---------+ + + | [employer] | | | | + +---------+ + + documented in this encounter Visit Diagnoses + + | Diagnosis | + + | Iron deficiency anemia due to chronic blood loss - Primary Iron deficiency anemia | | secondary to blood loss (chronic) | + + | Gastrointestinal hemorrhage, unspecified gastrointestinal hemorrhage type | + + | CAD (coronary artery disease) Coronary atherosclerosis of unspecified type of vessel, | | [place] or graft | + + | Anemia Anemia, unspecified | + + | CVA (cerebral vascular accident) (HCC) Unspecified cerebral artery occlusion with | | cerebral infarction | + + documented in this encounter
--- OUTSIDE RECORDS SUMMARY | ~2019-12-09 | XMS | Encounter Summary ---
Demographics + + + | Address | [address] | | | [place] [address] | + + + | Home Phone | | + + + | Preferred Language | Unknown | + + + | Marital Status | | + + + | Zoroastrian Affiliation | [id number] | + + + [...] + | Lesia Castaneda | ECON | [address] | | | | | [place] [address] | | + + + + + | Rosina Castaneda | ECON | Unknown | | + + + + + | Sandy Zamora | ECON | [address] | | | | [place] | | | | | [address] | | + + + + + Care Team Providers + +------+ + | Care Knot Tying Operator Name | Role | Phone | + +------+ + | Sergio Thompson MD | PCP | | + +------+ + Encounter Details +--------+ + + + + | Date | Type | Department | Care Team | Description | +--------+ + + + + | 08/12/ | [facility] | [facility] | Demond Castellon | CA prostate, adenoca | | 2019 | Encounter | [facility] | MD [place] | ([facility]) (Primary Dx); | | | | ONCOLOGY CLINIC [address] [facility] | Cerebro[facility] | | | | [facility] | [place] [address] | accident (CVA), | | | | [place] [address] | [phone] | unspecified | | | | [phone] | | mechanism (HCC); | | | | | | Anemia, unspecified | | | | | | type; Closed right | | | | | | hip fracture, | | | | | | initial encounter | | | | | | (HCC) [...] + + + | Blood Pressure | 114/53 | 08/12/2018 9:43 AM | | | | | PDT | | + + + + + | Pulse | 59 | 08/12/2018 9:43 AM | | | | | PDT | | + + + + + | Temperature | 36.3 C (97.3 F) | 08/12/2018 9:43 AM | | | | | PDT | | + + + + + | Respiratory Rate | 16 | 08/12/2018 9:43 AM | | | | | PDT | | + + + + + | Oxygen Saturation | 97% | 08/12/2018 9:43 AM | | | | | PDT | | + + + + + | Inhaled Oxygen | - | - | | | Concentration | | | | + + + + + | Weight | 75.7 kg (166 lb 14.2 | 08/12/2018 9:43 AM | | | | oz) | PDT | | + + + + + | Height | - | - | | + + + + + | Body Mass Index | 22.02 | 07/22/2018 1:54 PM | | | | | PST [...] + + + +---------+ + + | cephalexin | take 1 capsule by | | 0 | 03/27/20 | | | (KEFLEX) 250 mg | mouth four times a | | | 18 | 9 | | capsule | day | | | | | + + [...] + + + +---------+ + + | desonide (DESOWEN) | | | 0 | 01/24/20 | | | 0.05% cream | | | | 18 | 9 | + + + +---------+ + + | fluorouracil | | | 0 | 01/24/20 | | | (EFUDEX) 5 % cream | | | | 18 | 9 | + + + +---------+ [...] documented as of this encounter Progress Notes Estelita Loyd CMA - 08/12/2018 9:44 AM PDTREVIEW OF SYSTEMS Constitutional: Mild fatigue. Denies high fevers, shaking chills, anorexia, nausea, vomitin g, weight loss, or night sweats. Appetite without changes. Weight loss of 1 lbs. States he has had what may have been the flu off and on this past month. Ear, Nose, Mouth, Throat: Denies odynophagia, dysphagia, or tinnitus. Cardiovascular: Denies shortness of breath, dyspnea on exertion, chest pain, palpitations o r orthopnea. Respiratory: Denies cough, hemoptysis, or sputum production. Gastrointestinal: Denies abdominal pain, constipation, diarrhea, melena, or bright red bloo d per rectum. Genitourinary: Denies hematuria or dysuria. Musculoskeletal:Reports hip and knee joint pain & tenderness. Neurologic: Denies headache, visual changes, or numbness/tingling of the extremities. Endocrine: Denies peripheral edema or heat/cold intolerance. Hematologic: Denies spontaneous bruising or bleeding. Bruises fairly easily. Integumentary: Denies rash, wounds or other skin concerns. Pain: Denies pain. Note: Here for labs and f/u. My chart: Active emond Castellon MD - 08/12/2018 7:17 AM PDTFormatting of this note might be different from the origi nal. Hem-Onc Progress Note [facility] Pt. Name/Age/: Demond Castaneda 87 y.o. 1930 Med. Record Number: [id number] Date of admission: (Not on file) Assessment and plan: 1. 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 Stroke, November, 3. Angina Pectoris, Dec, 2013, S/p PCI, [facility], [place] 4. Fall hip fracture, November,, S/p right THR, Dr [place] 5. S/p right TNR, 2017 Review of laboratory testing from this morning noting further decline in erythrocyte count today at less than 3,000,000/mcL with accompanying hemoglobin of 9.2%. Reminder concerning recommendation for continued multivitamin with iron replacement therapy. Discussion concerning monitoring of prostate cancer and will call patient with results of ryanne tanner's PSA testing. Review of laboratory testing over the past 3 years noting overall stabi lity with PSA remaining in the low double digit range. Based on this expectation continued follow-up in the cancer Center on an annual basis. Subjective: The patient chart and medications were reviewed in detail and the patient was seen and exam ined. Demond Castaneda is a 87 y.o. male returns today for long-term follow-up because of bioch emical relapse of prostate cancer. Interim history mostly unremarkable with patient generally doing well with a 12 month inter im since her most recent visit. As an example patient describes recently undergoing follow- up cardiac stress test obtained through [facility] with negative findings for is chemia. Patient continues to remain limited referable to earlier right leg injury which pre vents patient from pursuing some of his normal activities including horseback riding and gol f. Patient has been working out however and believes he is going to be able to resume golfi ng later this summer. PSH: Reviewed, no changes to admission H&P. Past Medical History: Diagnosis Date Actinic keratosis Anemia Basal cell carcinoma of skin CAD (coronary artery disease) Carotid stenosis CVA (cerebral vascular accident) (HCC) Eczema Femur fracture, left (HCC) Fx eight/more rib-closed H/O: facial fractures Hearing loss wears hearing aids Osteoarthritis Pes planus Wears dentures full upper Review of Systems: Constitutional: Mild fatigue. Denies high fevers, shaking chills, anorexia, nausea, vomitin g, weight loss, or night sweats. Appetite without changes. Weight loss of 1 lbs. States he has had what may have been the flu off and on this past month. Ear, Nose, Mouth, Throat: Denies odynophagia, dysphagia, or tinnitus. Cardiovascular: Denies shortness of breath, dyspnea on exertion, chest pain, palpitations o r orthopnea. Respiratory: Denies cough, hemoptysis, or sputum production. Gastrointestinal: Denies abdominal pain, constipation, diarrhea, melena, or bright red bloo d per rectum. Genitourinary: Denies hematuria or dysuria. Musculoskeletal:Reports hip and knee joint pain &tenderness. Neurologic: Denies headache, visual changes, or numbness/tingling [...] medications on file prior to encounter. Objectives: on Min/Max Temp past 24 hours:No Data Recorded No intake or output data in the 24 hours ending 08/12/18 0717 Wt. Admission: Wt. Current: Physical Exam: Exam: General: The patient is alert and oriented. No acute distress. HEENT: PERRL, Oral mucosa intact. Neck is supple. Cardiovascular: Regular rate and rhythm, no murmur. Respiratory: Clear to auscultation and percussion. Breast: No gynecomastia Abdomen: Soft, nontender, no hepatospenomegaly. No palpable masses. Bowel sounds present. Genitourinary: Deferred. Extremities: Right knee without full extension. Skin: No rashes, bruising, or petechiae. Lymph: No palpable nodes in the neck, supraclavicular fossa, axilla or groin. Neurological: Cranial nerves are intact. Normal sensory and motor function, No focal defi cits noted. Muscular/Skeletal: Antalgic gait favoring right leg. Psychiatric: Normal mood and affect. Diagnostic studies: Electronically signed by: Demond Castellon, 08/12/2018 7:17 [facility] TIME SPENT 20 MIN. > 50% AT BEDSIDE, WITH FAMILY/PATIENT IN CARE AND WELL HEAD PUMPER ON UNIT AND CO ORDINATION OF CARE Portions of this chart may have been created with [employer] voice recognition software. Occasi onal wrong-word or sound-alike substitutions may have occurred due to the inherent epperson itations of voice recognition software. Please read the chart carefully and recognize, using context, where these substitutions have occurred. documented in this encounter Miscellaneous Notes Addendum Note - Estelita Loyd CMA - 08/12/2018 11:40 AM PDTEncounter addended by: Estelita Loyd CMA on: 08/12/2018 11:40
Actions taken: Charge Capture section acceptedEle ctronically signed by Estelita Loyd CMA at 08/12/2018 11:40 AM PDTdocumented in this enco unter Plan of Treatment +--------+---------+ + + + | Date | Type | Specialty | Care Team | Description | +--------+---------+ + + + | 02/01/ | Office | Cardiology | Jazlyn Almeida, | | | 2019 | Visit | | MD Vikram RICARDO | | | | | | [place] | | | | | | [phone] | | | | | | | | +--------+---------+ + + + documented as of this encounter Procedures + +--------+ + + + | Procedure Name | Priori | Date/Time | Associated Diagnosis | Comments | | | ty | | | | + +--------+ + + + | CBC WITH | STAT | 08/12/2018 | CA prostate, | Results for this | | DIFFERENTIAL | | 9:31 AM | adenoca (HCC) | procedure are in the | | | | PDT | Cerebrovascular | results section. | | | | | accident (CVA), | | | | | | unspecified | | | | | | mechanism (HCC) | | | | | | Anemia, unspecified | | | | | | type Closed right | | | | | | hip fracture, | | | | | | initial encounter | | | | | | (HCC) | | + +--------+ + + + | PSA, DIAGNOSTIC | STAT | 08/12/2018 | CA prostate, | Results for this | | | | 9:31 AM | adenoca (HCC) | procedure are in the | | | | PDT | Cerebrovascular | results section. | | | | | accident (CVA), | | | | | | unspecified | | | | | | mechanism (HCC) | | | | | | Anemia, unspecified | | | | | | type Closed right | | | | | | hip fracture, | | | | | | initial encounter | | | | | | (HCC) | | + +--------+ + + + | COMPREHENSIVE | STAT | 08/12/2018 | CA prostate, | Results for this | | METABOLIC PANEL | | 9:31 AM | adenoca (HCC) | procedure are in the | | | | PDT | Cerebrovascular | results section. | | | | | accident (CVA), | | | | | | unspecified | | | | | | mechanism (HCC) | | | | | | Anemia, unspecified | | | | | | type Closed right | | | | | | hip fracture, | | | | | | initial encounter | | | | | | (HCC) | | + +--------+ + + + documented in this encounter Results PSA, Diagnostic (08/12/2018 9:31 AM PDT) + + + + + + | Component | Value | Ref Range | Performed | Pathologist | | | | | At | Signature | + + + + + + | PSA | 15.89 (H) | <=4.00 ng/mL | [facility] | | | | [...] + | [facility] | [address] | [place] | [phone] | | [facility] | | [address] | | | - LABORATORY | | | | + + + + + Comprehensive Metabolic Panel (08/12/2018 9:31 AM PDT) + +---------+ + + + | Component | Value | Ref Range | Performed | Pathologist | | | | | At | Signature | + +---------+ + + + | Na | 144 | 136 - 145 | [facility] | | | | | mmol/L | [facility] | | [facility] - | | | | | | LABORATORY | | + +---------+ + + + | K | 3.7 | 3.4 - 5.1 | [facility] | | | | | mmol/L | [facility] | | | | | | [facility] | | | | | | [facility] - | | | | | | LABORATORY | | + +---------+ + + + | Cl | 109 (H) | 98 - 107 mmol/L | [facility] | | | | | | [facility] | | | | [facility] | [facility] | | | | | | [facility] - | | | | | | LABORATORY | | + +---------+ + + + | CO2 | 27 | 20 - 31 mmol/L | [facility] | | | | | | [facility] | | | | [facility] | [facility] | | | | | | [facility] - | | | | | | LABORATORY | | + +---------+ + + + | Anion Gap | 8 | 3 - 16 mmol/L | [facility] | | | | | | [facility] | | | | [facility] | [facility] | | | | | | [facility] - | | | | | | LABORATORY | | + +---------+ + + + | Glucose | 115 (H) | 60 - 106 mg/dL | [facility] | | | | | | [facility] | | | | | | [facility] | | | | | | [facility] - | | | | | | LABORATORY | | + +---------+ + + + | BUN | 26 (H) | 9 - 23 mg/dL | [facility] | | | | | | [facility] | | | | | | [facility] | | | | | | [facility] - | | | | | | LABORATORY | | + +---------+ + + + | Creatinine | 1.20 | 0.70 - 1.30 | [facility] | | | | | mg/dL | [facility] | | | | | | [facility] | | [facility] | | | CENTER - | | | | | | LABORATORY | | + +---------+ + + + | eGFR if not | 57 (L) | >=60 | [facility] | | | | | mL/min/1.73m2 | [facility] | | | [facility] | | | [facility] | | | | | | CENTER - | | | | | | LABORATORY | | + +---------+ + + + | Calcium | 9.6 | 8.7 - 10.4 | [facility] | | | | | mg/dL | [facility] | | | | | | [facility] | | | | | | CENTER - | | | | | | LABORATORY | | + +---------+ + + + | Albumin | 4.2 | 3.2 - 4.8 g/dL | [facility] | | | | | | [facility] | | | | | | [facility] | | | | | | [facility] - | | | | | | LABORATORY | | + +---------+ + + + | Bilirubin | 1.6 (H) | 0.3 - 1.2 mg/dL | [facility] | | | Total | | | [facility] | | | | | | [facility] | | | | | | [facility] - | | | | | | LABORATORY | | + +---------+ + + + | Total | 6.7 | 5.7 - 8.2 g/dL | [facility] | | | Protein | | | [facility] | | | | | | [facility] | | | | | | [facility] - | | | | | | LABORATORY | | + +---------+ + + + | AST | 17 | 0 - 34 U/L | [facility] | | | | | | [facility] | | | [facility] | | [facility] | | | | | | [facility] - | | | | | | LABORATORY | | + +---------+ + + + | ALT | 9 (L) | 10 - 49 U/L | [facility] | | | | | | [facility] | | | | | | [facility] | | | | | | C[facility] - | | | | | | LABORATORY | | + +---------+ + + + | Alkaline | 95 | 46 - 116 U/L | [facility] | | | Phosphatase | | | [facility] | | | | | | [facility] | | | | | | CENTER - | | | | | | LABORATORY | | + +---------+ + + + | Globulin | 2.5 | 2.1 - 3.8 g/dL | [facility] | | | | | | [facility] | | | | | | [facility] | | | | | | [facility] - | | | | | | LABORATORY | | + +---------+ + + + | Albumin/Angeles | 1.7 | 0.8 - 1.9 | [facility] | | | bulin Ratio | | | [facility] | | | | | | [facility] | | | | | | CENTER - | | | | | | LABORATORY | | + +---------+ + + + | BUN/Creatin | 21.7 | | [facility] | | | ine [...] [address] | [place] | [phone] | | [facility] | | [address] | | | - LABORATORY | | | | + + + + + CBC with Differential (08/12/2018 9:31 AM PDT) + + + + + + | Component | Value | Ref Range | Performed | Pathologist | | | | | At | Signature | + + + + + + | White Blood | 5.1 | 4.0 - 11.0 K/uL | [facility] [...] + + + + | MCV | 98.3 | 83.0 - 101.0 fL | [facility] | | | | | | [facility] | | | [facility] | [facility] | | | | | | [facility] - | | | | | | LABORATORY | | + + + + + + | MCH | 31.7 | 28.0 - 35.0 pg | [facility] | | | | | | [facility] | | | | | | [facility] | | | | | | [facility] - | | | | | | LABORATORY | | + + + + + + | MCHC | 32.3 | 32.0 - 36.0 | [facility] | | | | | g/dL | [facility] | | | | | | [facility] | | | | | | C[facility] - | | | | | | LABORATORY | | + + + + + + | RDW-CV | 17.5 (H) | <15.0 % | [facility] | | | | | | [facility] | | | | | | [facility] | | | | | | [facility] - | | | | | | LABORATORY | | + + + + + + | RDW-SD | 63.4 (H) | 35.1 - 46.3 fL | [facility] | | | | | | [facility] | | | | | | [facility] | | | | | | [facility] - | | | | | | LABORATORY | | + + + + + + | Platelet | 242 | 140 - 440 K/uL | [facility] | | | Count | | | [facility] | | | | | | [facility] | | | | | | C[facility] - | | | | | | LABORATORY | | + + + + + + | MPV | 9.0 | 6.5 - 12.4 fL | [facility] | | | | | | [facility] | | | | | | [facility] | | | | | | [facility] - | | | | | | LABORATORY | | + + + + + + | % | 71.1 | 45.0 - 82.0 % | [facility] | | | Neutrophils | | | [facility] | | | | | | [facility] | | | | | | CENTER - | | | | | | LABORATORY | | + + + + + + | % | 20.0 | 20.0 - 45.0 % | [facility] | | | Lymphocytes | | | [facility] | | | | | | [facility] | | | | | | CENTER - | | | | | | LABORATORY | | + + + + + + | % Monocytes | 7.1 | 4.0 - 12.0 % | [facility] [...] + + + | % Basophils | 0.2 | 0.0 - 1.0 % | [facility] | | | | | | [facility] | | | | | | [facility] | | | | | | C[facility] - | | | | | | LABORATORY | | + + + + + + | % Immature | 0.4 | 0.0 - 0.4 % | [facility] | | | Granulocyte | | | [facility] | | | s | | | MEDICAL | | | | | | CENTER - | | | | | | LABORATORY | | + + + + + + | Absolute | 3.63 | 1.80 - 8.50 | [facility] | | | Neutrophils | | K/uL | [facility] | | | | | | [facility] | | | | | | CENTER - | | | | | | LABORATORY | | + + + + + + | Absolute | 1.02 | 0.60 - 3.20 | [facility] | | | Lymphocytes | | K/uL | [facility] | | | | | | [facility] | | | | | | CENTER - | | | | | | LABORATORY | | + + + + + + | Absolute | 0.36 | 0.00 - 1.00 | [facility] | | | Monocytes | | K/uL | [facility] | | | | | | [facility] | | | | | | CENTER - | | | | | | LABORATORY | | + + + + + + | Absolute | 0.06 | 0.00 - 0.40 | [facility] | | | Eosinophils | | K/uL | [facility] | | | | | | [facility] | | | | | | CENTER - | | | | | | LABORATORY | | + + + + + + | Absolute | 0.01 | 0.00 - 0.10 | [facility] | | | Basophils | | K/uL | [facility] | | | | | | [facility] | | | | | | CENTER - | | | | | | LABORATORY | | + + + + + + | Absolute | 0.02 | 0.00 - 0.03 | [facility] | | | Immature | | K/uL | [facility] | | | Granulocyte | | | MEDICAL | | | s | | | CENTER - | | | | | | LABORATORY | | + + + + + + | % nRBC | 0 | 0 - 2 per 100 | [facility] | | | | | WBC's | [facility] | | | | | | [facility] | | | | | | CENTER - | | | | | | LABORATORY | | + + + + + + | Absolute | 0.00 | 0.00 - 0.01 | [facility] | | | nRBC | | K/uL | [facility] | [...] | [address] | [place] | [phone] | | [facility] | | [address] | | | - LABORATORY | | | | + + + + + documented in this encounter Visit Diagnoses + + | Diagnosis | + + | CA prostate, adenoca (HCC) - Primary Malignant neoplasm of prostate | + + | Cerebrovascular accident (CVA), unspecified mechanism (HCC) | + + | Anemia, unspecified type | + + | Closed right hip fracture, initial encounter (HCC) | + + documented in this encounter"
--- OUTSIDE RECORDS SUMMARY | ~2019-12-09 | XMS | Encounter Summary ---
Demographics + + + | Address | [address] | | | [place] [address] | + + + | Home Phone | | + + + | Preferred Language | Unknown | + + + | Marital Status | | + + + | Taoist Affiliation | 1041 | + + + | Race | Unknown | + + + | Ethnic Group | Unknown | + + + Author + + + | Author | [facility] | | | and [place] | + + + | Organization | [facility] | | | and [place] | + + + | Address | Unknown | + + + | Phone | Unavailable | + + + Support + + + + + | Name | Relationship | Address | Phone | + + + + + | Lesia Castaneda | ECON | [address] | | | | | [place] [address] | | + + + + + | Rosina Castaneda | ECON | Unknown | | + + + + + | Sandy Zamora | ECON | [address] | | | | | [place] | | | | | [address] | | + + + + + Care Team Providers + +------+ + | Care Motor Assembler Name | Role | Phone | + +------+ + | Sergio Thompson MD | PCP | | + +------+ + Encounter Details +--------+ + + + + | Date | Type | Department | Care Team | Description | +--------+ + + + + | 08/28/ | Orders Only | [facility] | Demond Castellon | Acquired hemolytic | | 2016 | | MED CTR PROVIDER | MD [address] | anemia (HCC) | | | | ONCOLOGY [address] | [address] | (Primary Dx) | | | | [place] [place], | [place] [address] | | | | | [place] [address] | [phone] | | | | | [phone] | | | +--------+ + + + [...] [place] | | | | | | [address] | | | | | | | | +--------+---------+ + + + + +------+--------+ + + | Name | Type | Priori | Associated Diagnoses | Order Schedule | | | | ty | | | + +------+--------+ + + | Lactate | Lab | STAT | Acquired hemolytic | 52 Occurrences | | Dehydrogenase | | | anemia (HCC) | starting 08/29/2015 | | | | | | until 08/28/2016, 3 | | | | | | completed | + +------+--------+ + + | CBC w/ Auto | Lab | STAT | Acquired hemolytic | 52 Occurrences | | Differential | | | anemia (HCC) | starting 08/29/2015 | | | | | | until 08/28/2016, 3 | | | | | | completed | + +------+--------+ + + documented as of this encounter Results CBC w/ Auto Differential (02/14/2016 11:03 AM [...] | | | Eosinophils | | | [facility] | | [...] [address] | [place] | [phone] | | [facility] | | [address] | | | - LABORATORY | | [...] [address] | [place] | [phone] | | [facility] | | [address] | | | - LABORATORY | | | | + + + + + CBC w/ Auto Differential (09/27/2015 8:59 AM PDT) + + + + + [...] + + + | Red Blood | 3.00 (L) | 4.30 - 5.70 | [facility] [...] + + + + | MCH | 34.1 | 28.0 - 35.0 pg | [facility] [...] + + + + | RDW-CV | 18.0 (H) | <15.0 % | [facility] | | | | | | [facility] | | | | | | MEDICAL | | | | | | CENTER - | | | | | | LABORATORY | | + + + + + + | Platelet | 169 | 140 - 440 K/uL | [facility] [...] + + + + | % | 72.9 | 45.0 - 82.0 % | [facility] | | | Neutrophils | | | [facility] | | | | | | MEDICAL | | | | | | CENTER - | | | | | | LABORATORY | | + + + + + + | % | 17.9 (L) | 20.0 - 45.0 % | [facility] | | | Lymphocytes | | | [facility] | | | | | | MEDICAL | | | | | | CENTER - | | | | | | LABORATORY | | + + + + + + | % Monocytes | 6.9 | 4.0 - 12.0 % | [facility] | | | | | | [facility] | | | | | | MEDICAL | | | | | | CENTER - | | | | | | LABORATORY | | + + + + + + | % | 1.5 | 0.0 - 5.0 % | [facility] [...] + + + + | Absolute | 3.20 | 1.80 - 8.50 | [facility] | [...] + | [facility] | [address] | [place] | [phone] | | [facility] | | [address] | | | - LABORATORY | | | | + + + + + Lactate Dehydrogenase (09/27/2015 8:59 AM PDT) + +---------+ + + + | Component | Value | Ref Range | Performed | Pathologist | | | | | At | Signature | + +---------+ + + + | LDH TOTAL | 183 (H) | 91 - 180 U/L | [...] [address] | [place] | [phone] | | [facility] | | [address] | | | - LABORATORY | | [...] | | | Eosinophils | | | [facility] | | [...] [address] | [place] | [phone] | | [facility] | | [address] | | | - LABORATORY | | [...] | [facility] | | | | [address], [place] | | | | | | [address] | | | | + + + + + + + + | Specimen | + + | Blood specimen | | (specimen) | + + + + + + + | Performing | Address | City/State/Zipcode | Phone Number | | Organization | | | | + + + + + | [facility] | [address] | [place] [address] | [phone] | + + + + + MADDI (08/30/2015 3:31 PM PDT) + + + + + + | Component | Value | Ref Range | Performed | Pathologist | | | | | At | Signature | + + + + + + | MADDI | Negative | | [facility] | | | POLYSPECIFI | | | [facility] | | | C (IGG + | [...] St | [place] | | | [facility] | | [address] | | | - BLOOD BANK | [...] [address] | [place] | [phone] | | [facility] | | [address] | | | - LABORATORY | | [...] [address] | [place] | [phone] | | [facility] | | [address] | | | - LABORATORY | | | | + + + + + documented in this encounter Visit Diagnoses + + | Diagnosis | + + | Acquired hemolytic anemia (HCC) - Primary Acquired hemolytic anemia, unspecified | + + documented in this encounter"
--- OUTSIDE RECORDS SUMMARY | ~2019-12-09 | XMS | Encounter Summary ---
Demographics + + + | Address | [address] | | | [place] [address] | + + + | Home Phone [...] + | Lesia Castaneda | ECON | [address] | | | | | [place] [address] | | + + + + + | Rosina Castaneda | ECON | Unknown | | + + + + + | Sandy Zamora | ECON | [address] | | | | | [place] | | | | | [address] | | + + + + + Care Team Providers + +------+ + | Care Nurse Substance Abuse Name | Role | Phone | + +------+ + | Jerome Ray | PCP | | | MD | | | + +------+ + Encounter Details +--------+ + + + + | Date | Type | Department | Care Team | Description | +--------+ + + + + | 02/16/ | Hospital | [facility] | Demond Castellon | | | 2012 - | Encounter | MED CTR CANCER | MD [address] | | | | | [place] [address] | [facility] | | | 02/22/ | | [place] | [place] [address] | | | 2012 | | [address] | [phone] | | | | | [phone] | | | +--------+ + + + [...] [place] | | | | | | [address] | | | | | | | | +--------+---------+ + + + documented as of this encounter Procedures + +--------+ + + + | Procedure Name | Priori | Date/Time | Associated Diagnosis | Comments | | | ty | | | | + +--------+ + + + | VITAMIN D, | Routin | 02/16/2013 | | Results for this | | DEFICIENCY SCREEN | e | 11:57 AM | | procedure are in the | | (25-HYDROXY) | | PDT | | results section. | + +--------+ + + + | C-PEPTIDE | Routin | 02/16/2013 | | Results for this | | | e | 11:57 AM | | procedure are in the | | | | PDT | | results section. | + +--------+ + + + | CBC WITH | Routin | 02/16/2013 | | Results for this | | DIFFERENTIAL | e | 11:57 AM | | procedure are in the | | | | PDT | | results section. | + +--------+ + + + | C-REACTIVE PROTEIN | Routin | 02/16/2013 | | Results for this | | | e | 11:57 AM | | procedure are in the | | | | PDT | | results section. | + +--------+ + + + | COMPREHENSIVE | Routin | 02/16/2013 | | Results for this | | METABOLIC PANEL | e | 11:57 AM | | procedure are in the | | | | PDT | | results section. | + +--------+ + + + documented in this encounter Results CBC with Differential (02/16/2013 11:57 AM PDT) + + + + + + | Component | Value | Ref Range | Performed | Pathologist | | | | | At | Signature | + + + + + + | MANUAL | NO | | [facility] | | | DIFFERENTIA | | | [facility] | | | L ? | | | MEDICAL | | | | | | CENTER - | | | | | | LABORATORY | | + + + + + + | White Blood | 5.3 | 4.0 - 11.0 K/uL | [facility] | | | Cells | | | [facility] | | | | | | MEDICAL | | | | | | CENTER - | | | | | | LABORATORY | | + + + + + + | Red Blood | 2.99 (L) | 4.30 - 5.70 | [facility] [...] | | | | gm/dL | [facility] | | | | [...] + + + + | MCV | 97.9 | 83.0 - 101.0 fL | [facility] | | | | | | [facility] | | | | | | MEDICAL | | | | | | CENTER - | | | | | | LABORATORY | | + + + + + + | MCH | 34.8 | 28.0 - 35.0 pg | [facility] | | | | | | [facility] | | | | | | MEDICAL | | | | | | CENTER - | | | | | | LABORATORY | | + + + + + + | MCHC | 35.5 | 32.0 - 36.0 | [facility] | [...] + + + + | Platelet | 163 | 140 - 440 K/uL | [facility] | | | Count | | | [facility] | | | | | | MEDICAL | | | | | | CENTER - | | | | | | LABORATORY | | + + + + + + | % | 77.0 (H) | 45 - 75 % | [facility] | | | Neutrophils | | | [facility] | | | | | | MEDICAL | | | | | | CENTER - | | | | | | LABORATORY | | + + + + + + | % | 12.8 (L) | 20 - 45 % | [facility] | | | Lymphocytes | | | [facility] | | | | | | MEDICAL | | | | | | CENTER - | | | | | | LABORATORY | | + + + + + + | % Monocytes | 8.5 | 4 - 12 % | [facility] | | | | | | [facility] | | | | | | MEDICAL | | | | | | CENTER - | | | | | | LABORATORY | | + + + + + + | % | 1.3 | 0 - 5 % | [facility] | | | Eosinophils | | | [facility] | | | | | | MEDICAL | | | | | | CENTER - | | | | | | LABORATORY | | + + + + + + | % Basophils | 0.4 | 0 - 1 % | [facility] | | | | | | [facility] | | | | | | MEDICAL | | | | | | CENTER - | | | | | | LABORATORY | | + + + + + + | Absolute | 4.1 | 1.5 - 6.6 K/uL | [facility] [...] + + + + | Absolute | 0.4 | 0.0 - 1.0 K/uL | [facility] [...] + + + + | Absolute | 0.0 | 0.0 - 0.1 K/uL | [facility] | | | Basophils | | | [facility] | | [...] + | [facility] | [address] | [place] | [phone] | | [facility] | | [address] | | | - LABORATORY | | | | + + + + + | [facility] | [address] | [place], [place] | | | [facility] | | [address], [facility] | | | - LABORATORY | | | | + + + + + Vitamin D, 25-Hydroxy (02/16/2013 11:57 AM PDT) + + + + + + | Component | Value | Ref Range | Performed | Pathologist | | | | | At | Signature | + + + + + + | Vitamin D, | 25 (L)Comment: <20 ng/mL | 30 - 100 ng/mL [...] + + | Performing | Address | City/State[facility] | Phone Number | | Organization | | | | + + + + + | [facility] | [address] | [place] | [phone] | | [facility] | | [address] | | | - LABORATORY | | | | + + + + + | [facility] | [address] | [place] | | | [facility] | | [address], [facility] | | | - LABORATORY | | | | + + + + + C-Peptide (02/16/2013 11:57 AM PDT) + + + + + + | Component | Value | Ref Range | Performed | Pathologist | | | | | At | Signature | + + + + + + | C PEPTIDE | 6.0 (H)Comment: Note: | 1.0 - 5.5 ng/mL | [facility] | | | | Reference range applies | | [facility] | | | | to fasting specimens. | | MEDICAL | | | | Testing Performed: | | CENTER - | | | | [facility], [address], | | LABORATORY | | | | [place] [address] | | | | | | CLIA: [id number] | | | | + + + + + + + + | Specimen | + + | | + + + + + + + | Performing | Address | City/State/Zipcode | Phone Number | | Organization | | | | + + + + + | [facility] | [address] | [place], [place] | [phone] | | [facility] | | [address] | | | - LABORATORY | | | | + + + + + | [facility] | [address] | [place], [place] | | | [facility] | | [id number] [place] [address] | | | - LABORATORY | | | | + + + + + Comprehensive Metabolic Panel (02/16/2013 11:57 AM PDT) + + + + + [...] + + + + | Calcium | 9.5 | 8.3 - 10.5 | [facility] | | | | | mg/dL | [facility] | | | | | | MEDICAL | | | | | | CENTER - | | | | | | LABORATORY | | + + + + + + | Alkaline | 100 | 40 - 110 IU/L | [facility] | | | Phosphatase | | | [facility] | | | | | | MEDICAL | | | | | | CENTER - | | | | | | LABORATORY | | + + + + + + | AST | 12 | 10 - 42 IU/L | [facility] | | | | | | [facility] | | | | | | MEDICAL | | | | | | CENTER - | | | | | | LABORATORY | | + + + + + + | ALT | 9 | 6 - 45 IU/L | [facility] | | | | | | [facility] | | | | | | MEDICAL | | | | | | CENTER - | | | | | | LABORATORY | | + + + + + + | Bilirubin | 4.6 (H) | 0.2 - 1.0 mg/dL | [facility] | | | Total | | | [facility] | | | | | | MEDICAL | | | | | | CENTER - | | | | | | LABORATORY | | + + + + + + | Total | 7.1 | 6.0 - 7.8 gm/dL | [facility] [...] + + + + | BUN | 26 (H) | 7 - 18 mg/dL | [facility] | | | | | | [facility] | | | | | | MEDICAL | | | | | | CENTER - | | | | | | LABORATORY | | + + + + + + | Creatinine | 1.48 (H) | 0.60 - 1.30 | [facility] | | | | | mg/dL | [facility] | | | | | | MEDICAL | | | | | | CENTER - | | | | | | LABORATORY | | + + + + + + | Estimated | 46 (L)Comment: For | >60 mL/min/A | [facility] | | | GFR | -Americans, | | [facility] | | | | please multiply the [...] + + + + | BUN/Creatin | 17.6 | 12 - 20 | [facility] | | | ine Ratio | | | [facility] | | | | | | MEDICAL | | | | | | CENTER - | | | | | | LABORATORY | | + + + + + + | Na | 139 | 136 - 149 mEq/L | [facility] | | | | | | [facility] | | | | | | MEDICAL | | | | | | CENTER - | | | | | | LABORATORY | | + + + + + + | K | 4.3 | 3.5 - 5.1 mEq/l | [facility] | | | | | | [facility] | | | | | | MEDICAL | | | | | | CENTER - | | | | | | LABORATORY | | + + + + + + | Cl | 105 | 98 - 109 mEq/l | [facility] | | | | | | [facility] | | | | | | MEDICAL | | | | | | CENTER - | | | | | | LABORATORY | | + + + + + + | CO2 | 26 | 24 - 31 mEq/L | [facility] | | | | | | [facility] | | | | | | MEDICAL | | | | | | CENTER - | | | | | | LABORATORY | | + + + + + + | Anion Gap | 12.3 | 6.0 - 17.0 | [facility] | | | | | [...] [address] | [place] | [phone] | | [facility] | | [address] | | | - LABORATORY | | | | + + + + + | [facility] | [address] | [place] | | | [facility] | | [address], [facility] | | | - LABORATORY | | | | + + + + + C-Reactive Protein (02/16/2013 11:57 AM PDT) + + + + + + | Component | Value | Ref Range | Performed | Pathologist | | | | | At | Signature | + + + + + + | CRP | 27.2 (H)Comment: Levels | <8.0 mg/L | [facility] | | | | >8.0 mg/L indicate | | [facility] | | | | possible infection, | | MEDICAL | | | | trauma, cardiac | | CENTER - | | | | infarct or neoplastic | | LABORATORY | | | | proliferation. | | | | + + + + + + + + | Specimen | + + | | + + + + + + + | Performing | Address | City/State/Zipcode | Phone Number | | Organization | | | | + + + + + | [facility] | [address] | [place], [place] | [phone] | | [facility] | | [address] | | | - LABORATORY | | | | + + + + + | [facility] | [address] | [place], [place] | | | [facility] | | [address] [place] [address] | | | - LABORATORY | | | | + + + + + documented in this encounter Visit Diagnoses Not on filedocumented in this encounter"
--- OUTSIDE RECORDS SUMMARY | ~2019-12-09 | XMS | Encounter Summary ---
Demographics + + + | Address | [address] | | | [place] [address] | + + + | Home Phone | | + + + | Preferred Language | Unknown | + + + | Marital Status | | + + + | Lutheran Affiliation | 1041 | + + + | Race | Unknown | + + + | Ethnic Group | Unknown | + + + Author + + + | Author | [facility] | | | and [place] | + + + | Organization | [facility] | | | and [place] | + + + | Address | Unknown | + + + | Phone | Unavailable | + + + Support + + + + + | Name | Relationship | Address | Phone | + + + + + | Lesia Castaneda | ECON | [address] | | | | | [place] [address] | | + + + + + | Rosina Castaneda | ECON | Unknown | | + + + + + | Sandy Zamora | ECON | [address] | | | | | [place] | | | | | [address] | | + + + + + Care Team Providers + +------+ + | Care Coagulant Dipper Name | Role | Phone | + +------+ + PCP | Unavailable | + +------+ + Encounter Details +--------+ + + + + | Date | Type | Department | Care Team | Description | +--------+ + + + + | 08/01/ | Hospital | [facility] | | | | 2010 - | Encounter | MED CTR CANCER | | | | | | CENTER [address] | | | | 08/23/ | | [place] | | | | 2010 | | [address] | | | | | | [phone] | | | +--------+ + + + [...] documented as of this encounter Progress Notes Cayla Murray MD - 08/01/2010 3:25 AM PSTDATE: 08/01/2010 RADIATION ONCOLOGY FOLLOWUP NOTE DIAGNOSIS: 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 INTERVAL HISTORY: The patient feels well in general. His main complaint is intermittent ho t flashes, especially at night, from the hormone injections. He has had 2 hormone injections, one on 0 11/30/2009 and a second one on 04/09/2010, each a 4-month injection of Lupron. Previously he had Lupron inje ctions als o twice, one on 04/20/2008 and a second one on 08/18/2008. His PSA on 04/09/2010 was 0.02 and today it is 0.01 . PHYSICAL EXAMINATION LYMPHATICS: No palpable lymph nodes. LUNGS: Clear. ABDOMEN: Negative. RECTAL: Deferred at the request of the patient. He said he had a complete physical examina tion, incl uding rectal examination, recently at the [facility], and it was negative. Also at that ti me his pro state was noted to be quite small. MUSCULOSKELETAL: No tenderness in the bones. IMPRESSION: Good biochemical response with hormone therapy. PLAN: My recommendation was to continue hormone therapy for at least another 8 to 12 month s. The taz marquez, however, does not want anything done at the present time. He states that he is quite bother ed by the hot flashes, and he would rather wait several months. If his PSA starts coming up, then he will consider the hormo ne therapy. He said he would like to return here in 6 months for followup, and so we have sche duled him to return here in 6 months. At that time we will repeat his PSA. DICTATED BY: Cayla Murray MD Radiation Oncology JOB #: [id number] EXT JOB #:[id number] <Electronicall y Signed by Cayla Murray MD> 08/02/10 1550 documented in this encounter Plan of Treatment +--------+---------+ + + + | Date | Type | Specialty | Care Team | Description | +--------+---------+ + + + | 02/01/ | Office | Cardiology | Jazlyn Almeida, | | | 2019 | Visit | | MD Vikram RICARDO | | | | | | [place] | | | | | | [address] | | | | | | | | +--------+---------+ + + + documented as of this encounter Procedures + +--------+ + + + | Procedure Name | Priori | Date/Time | Associated Diagnosis | Comments | | | ty | | | | + +--------+ + + + | PSA, DIAGNOSTIC | Routin | 08/01/2010 | | Results for this | | | e | 10:17 AM | | procedure are in the | | | | PST | | results section. | + +--------+ + + + documented in this encounter Results PSA, Diagnostic (08/01/2010 10:17 AM PST) + + + + + + | Component | Value | Ref Range | Performed | Pathologist | | | | | At | Signature | + + + + + + | PSA, Total | 0.01Comment: After | 0.00 - 4.00 | [facility] [...] [address] | [place] | [phone] | | [facility] | | [address] | | | - LABORATORY | | | | + + + + + | [facility] | [address] | [place] | | | [facility] | | [address] | | | - LABORATORY | | | | + + + + + documented in this encounter Visit Diagnoses Not on filedocumented in this encounter"
--- OUTSIDE RECORDS SUMMARY | ~2019-12-09 | XMS | Encounter Summary ---
Demographics + + + | Address | [address] | | | [place] [address] | + + + | Home Phone | | + + + | Preferred Language | Unknown | + + + | Marital Status | | + + + | Alevism Affiliation | Unknown | + + + | Race | White | + + + | Ethnic Group | Not or | + + + Author + + + | Author | [facility] | + + + | Organization | [facility] | + + + | Address | Unknown | + + + | Phone | Unavailable | + + + Support + + +---------+ + | Name | Relationship | Address | Phone | + + +---------+ + | Sandy Zamora | ECON | Unknown | | + + +---------+ + Care Team Providers + +------+ + | Care Feather Shaper Name | Role | Phone | + +------+ + | Jerome Ray MD | PCP | | + +------+ + Reason for Visit + + + | Reason | Comments | + + + | New patient | Facial trauma | | consultation | | + + + Intake Referral (Urgent) +--------+--------+ + + + + | Status | Reason | Specialty | Diagnoses / | Referred By | Referred To | | | | | Procedures | Contact | Contact | +--------+--------+ + + + + | Closed | | Oral & | Diagnoses | [facility] | [facility] | | | | Maxillofacial | Crushing | Zully Wright, | [facility] [address] | | | | Surgery | injury of | [place] [address] | [address] [place] | | | | | face, | [address] | [place] | | | | | initial | [place], | [facility] | | | | | encounter | [place] [address] | Research | | | | | Procedures | Phone: | [address] | | | | | [place] to be | [phone] | floor | | | | | mailed to | Fax: | [place], [place] | | | | | clinic | [phone] | [address] | | | | | | | Phone: | | | | | | | [phone] | | | | | | | Fax: | | | | | | | [phone] | +--------+--------+ + + + + Encounter Details +--------+---------+ + + + | Date | Type | Department | Care Team | Description | +--------+---------+ + + + | 09/28/ | Office | [facility] | Venice Baxter, | Facial trauma, | | 2016 | Visit | [facility] | DDS [address] | initial encounter | | | | [facility] Center | [address] | (Primary Dx) | | | | [address] | [place], [place] | | | | | [place] | [address] | | | | | [address] | [phone] | | | | | [place], [place] | | | | | | [address] | | | | | | [phone] | | | +--------+---------+ + + + [...] + + documented in this encounter Progress Notes Venice Baxter, [facility] - 10/05/2015 1:56 PM PDTFormatting of this note might be different f rom the original. Demond Castaneda is a 84 y.o. male presents for evaluation s/p facial trauma that he sustaine d on 08/27/15. The patient states that he was spraying down a horse and the horse got spooked and knocked the patient to the ground. He sustained a moment of LOC. Subsequently, he not iced significant swelling under his right eye, and thus presented to his PCP who obtained a CT scan that showed facial bone fractures. He was then referred here to [facility]. The patient s tates that the swelling has subsided significantly, and his hardly noticeable except for a s mall "knot" under his eye on the cheekbone. Patient Active Problem List Diagnosis Anemia Adenocarcinoma of prostate (HCC) Chronic coronary artery disease Cerebrovascular accident (CVA) (HCC) Gastrointestinal hemorrhage Low hemoglobin Unstable angina pectoris (HCC) Current Inpatient Medications Medication aspirin EC 81 mg oral tablet,delayed release (DR/EC) atorvastatin 80 mg oral tablet Cholecalciferol, Vitamin D3, 5,000 unit oral tablet clopidogrel 75 mg oral tablet cyanocobalamin 1,000 mcg oral tablet Multivitamins oral tablet,chewable No current facility-administered medications for this visit. Allergies No Known Allergies Review of Systems reviewed and unremarkable today. Exam: Head and neck is unremarkable, no lymphadenopathy, no thyromegaly Facial exam: small nodule like area in right malar region in the area that the patient refe rred to in his chief complaint. It most likely represents a resolving hematoma. There are no steps in the facial bones, no flattening of the malar area. EOMI intact and PERRLA. Man dible is stable. Range of motion is normal. No deformity or mobility of nasal bones. CT scan is not available today. A/P: Demond Castaneda is a 84 y.o. male s/p facial trauma. There is a possiblity of a zygoma tic fracture, but given that there is no functional or cosmetic issue, it is non-operative. No intervention needed at this time. Signed, Venice Baxter DDS documented in this encounter Plan of Treatment Not on filedocumented as of this encounter Visit Diagnoses + + | Diagnosis | + + | Facial trauma, initial encounter - Primary | + + documented in this encounter
--- OUTSIDE RECORDS SUMMARY | ~2019-12-09 | XMS | Encounter Summary ---
Demographics + + + | Address | [address] | | | [place] [address] | + + + | Home Phone | | + + + | Preferred Language | Unknown | + + + | Marital Status | | + + + | Baptism Affiliation | 1041 | + + + | Race | Unknown | + + + | Ethnic Group | Unknown | + + + Author + + + | Author | [facility] | | | and [place] | + + + | Organization | [facility] | | | and [place] | + + + | Address | Unknown | + + + | Phone | Unavailable | + + + Support + + + + + | Name | Relationship | Address | Phone | + + + + + | Lesia Castaneda | ECON | [address] | | | | | [place] [address] | | + + + + + | Rosina Castaneda | ECON | Unknown | | + + + + + | Sandy Zamora | ECON | [address] | | | | | [place] | | | | | [address] | | + + + + + Care Team Providers + +------+ + | Care Housekeeping Lead Name | Role | Phone | + +------+ + | Jerome Ray | PCP | | | MD | | | + +------+ + Encounter Details +--------+ + + + + | Date | Type | Department | Care Team | Description | +--------+ + + + + | 07/14/ | Anesthesia | [facility] | Sergio Alonso | | | 2020 | Event | MED CTR ANESTHESIA | MD Merrick [address] | | | | | [address] [place] | [place] | | | | | [place] | [address] | | | | | [address] | | | | | | [phone] | | | +--------+ + + + + Anesthesia Record + + + + + | Procedure Name | Responsible | Anesthesia Start | Anesthesia Stop Time | | | Anesthesiologist | Time | | + + + + + | [facility] | | | | | [facility] | | | | + + + + + + + | No events on file. | + + +------+ | Meds | +------+ + + + No medications | on file. | + + + + + | No agents on file. | + + + + | No blood administrations on file. | + + +--------+ + +---------+ | Type | Details | Placement | Removal | +--------+ + +---------+ | Periph | 07/13/19; 1255; Left; Wrist; | 07/13/19 1255 by | | | eral | ywzo-fqo-cwawgb catheter system; | Laurence Contreras, | | | IV | 18 gauge, 1 1/4 in length; Blood | RN | | | | Bank; intradermal injection, | | | | | tolerated well | | | +--------+ + +---------+ | Wound | 07/13/19; 1524 (During surgery); | 07/13/19 1524 by | | | | N; Other (surgical incision); | Majo [place], | | | | Right; lateral; hip | RN | | +--------+ + +---------+ | Urethr | 07/14/19; 1934 (unknown - not | 07/14/191934 by | | | al | placed by this RN) | Clarisse Lakhani RN | | | Shree | | | | | er | | | | +--------+ + +---------+ | Periph | 07/15/19; 0945; Right; Distal; | 07/15/19 09 by | | | eral | Forearm; vrke-csq-dcdqnx catheter | Diaz Smith RN | | | IV | system; 18 gauge, 20 gauge; | | | | | distraction | | | +--------+ + +---------+ documented in this encounter Social History + [...] [place] | | | | | | [address] | | | | | | | | +--------+---------+ + + + documented as of this encounter Visit Diagnoses Not on filedocumented in this encounter"
--- OUTSIDE RECORDS SUMMARY | ~2019-12-09 | XMS | Encounter Summary ---
Demographics + + + | Address | [address] | | | [place] [address] | + + + | Home Phone | | + + + | Preferred Language | Unknown | + + + | Marital Status | | + + + | Congregation Affiliation | 1041 | + + + [...] + | Lesia Castaneda | ECON | [address] | | | | | [place] [address] | | + + + + + | Rosina Castaneda | ECON | Unknown | | + + + + + | Sandy Zamora | ECON | [address] | | | | | [place] | | | | | [address] | | + + + + + Care Team Providers + +------+ + | Care Environmental Systems Coordinator Name | Role | Phone | + +------+ + | Sergio Thompson MD | PCP | | + +------+ + Reason for Referral Evaluate & Treat (Routine) +--------+ + + + + + | Status | Reason | Specialty | Diagnoses / | Referred By | Referred To | | | | | Procedures | Contact | Contact | +--------+ + + + + + | Closed | Specialty | Gastroenterol | Diagnoses | Harri, | Harri, | | | Services | ogy | Iron | Demond Sher MD | Demond Sher MD | | | Required | | deficiency | [address], | | | | | anemia due | [address], [address] | [address] | | | | | to chronic | [address] [place] | [place], | | | | | blood loss | [place], [place] | [place] [address] | | | | | Dysphasia | [address] | Phone: | | | | | Procedures | Phone: | [phone] | | | | | [place] | [phone] | Fax: | | | | | ESOPHAGOGAST | Fax: | [phone] | | | | | RODUODENOSCO | [phone] | | | | | | PY TRANSORAL | | | | | | | DIAGNOSTIC | | | | | | | VA EDG | | | | | | | TRANSORAL | | | | | | | BIOPSY | | | | | | | SINGLE/MULTI | | | | | | | PLE VA | | | | | | | ANESTH,UGI | | | | | | | ENDOSCOPY | | | | | | | VA | | | | | | | COLONOSCOPY | | | | | | | FLX DX | | | | | | | W/COLLJ SPEC | | | | | | | WHEN PFRMD | | | | | | | VA | | | | | | | COLONOSCOPY | | | | | | | W/BIOPSY | | | | | | | SINGLE/MULTI | | | | | | | PLE VA | | | | | | | COLSC FLX | | | | | | | W/RMVL OF | | | | | | | TUMOR POLYP | | | | | | | LESION SNARE | | | | | | | TQ VA | | | | | | | ANESTH,INTES | | | | | | | ISSA,SCOPE,L | | | | | | | OW | | | +--------+ + + + + + Reason for Visit +--------+ + | Reason | Comments | +--------+ + | Other | GI hemorrhage | +--------+ + Evaluate & Treat (Routine) +--------+ + + + + + | Status | Reason | Specialty | Diagnoses / | Referred By | Referred To | | | | | Procedures | Contact | Contact | +--------+ + + + + + | Closed | Specialty | Gastroenterol | Diagnoses | | [facility] | | | Services | ogy | | Castellon, | Gastroenterol | | | Required | | Gastrointest | Demond | ogy [address] | | | | | inal | MD Refugio | [address] | | | | | hemorrhage, | [address] | [address] [place] | | | | | unspecified | [address] [place] | [place], [place] | | | | | gastrointest | [place] | [address] | | | | | inal | [address] | Phone: | | | | | hemorrhage | Phone: | [phone] | | | | | type | [phone] | Fax: | | | | | | Fax: | [phone] | | | | | | [phone] | | +--------+ + + + + + Encounter Details +--------+---------+ + + + | Date | Type | Department | Care Team | Description | +--------+---------+ + + + | 07/03/ | Office | [facility] | Demond More MD | Iron deficiency | | 2016 | Visit | GASTROENTEROLOGY | [address], [address] | anemia due to | | | | [address] | [address] [place], [place] | chronic blood loss | | | | [address] [place], [place] | [address] | (Primary Dx); | | | | [address] | | Dysphasia | | | | [phone] | | | +--------+---------+ + + + Social History + +-------+ +--------+------+ | Tobacco Use | Types | Packs/Day | Years | Date | | | | | Used | | + +-------+ +--------+------+ | Former Smoker | | | | | + +-------+ +--------+------+ + +---+---+---+ | Smokeless Tobacco: | | | | | Never Used | | | | + +---+---+---+ + + +---------+ + | Alcohol Use | Drinks/Week | oz/Week | Comments | + + +---------+ + | Not Asked | 0 Standard drinks | 0.0 | | | | or equivalent | [...] + + + | Blood Pressure | 110/56 | 07/03/2015 3:53 PM | | | | | PST | | + + + + + | Pulse | 58 | 07/03/2015 3:53 PM | | | | | PST | | + + + + + | Temperature | - | - | | + + + + + | Respiratory Rate | 16 | 07/03/2015 3:53 PM | | | | | PST | | + + + + + | Oxygen Saturation | 97% | 07/03/2015 3:53 PM | | | | | PST | | + + + + + | Inhaled Oxygen | - | - | | | Concentration | | | | + + + + + | Weight | 78 kg (172 lb) | 07/03/2015 3:53 PM | | | | | PST | | + + + + + | Height | 184 cm (6' 0.44") | 07/03/2015 3:53 PM | | | | | PST | | + + + + + | Body Mass Index | 23.04 | 07/03/2015 3:53 PM | | | | | PST | | + + + + + documented in this encounter Progress Notes Demond More MD - 07/03/2015 4:25 PM PST Subjective: [...] in 2013 he was referred back to [place]. A repeat cardiovascular evaluation in April 2015 was negative for any significant lesions . He had one stent placed in June 2013 and has been on Plavix and aspirin since that ti me. Patient himself has noticed no blood in the stools. His stools are currently dark as jeff sher is on iron. Patient denies any change [...] made to ensure accuracy; however, inadvertent computerized poker in errors may be pre sent. documented in this enc ounter Miscellaneous Notes Addendum Note - Jeannie Fregoso RN - 07/03/2015 5:14 PM PST Addended by: MELINDA FREGOSO on: 07/03/2015 17:14 Modules accepted: Orders documented in this encounter Plan of Treatment +--------+---------+ + + + | Date | Type | Specialty | Care Team | Description | +--------+---------+ + + + | 02/01/ | Office | Cardiology | Jazlyn Almeida, | | | 2019 | Visit | | MD Vikram RICARDO | | | | | | [address] [place], [place] | | | | | | [address] | | | | | | | | +--------+---------+ + + + + + +--------+ + + | Name | Type | Priori | Associated Diagnoses | Order Schedule | | | | ty | | | + + +--------+ + + | Ambulatory referral | Outpatient | Routin | Iron deficiency | Expected: | | to Gastroenterology | Referral | e | anemia due to | 07/25/2015, Expires: | | (francis) | | | chronic blood loss | 07/02/2016 | | | | | Dysphasia | | + + +--------+ + + documented as of this encounter Visit Diagnoses + + | Diagnosis | + + | 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
--- OUTSIDE RECORDS SUMMARY | ~2019-12-09 | XMS | Encounter Summary ---
Demographics + + + | Address | [address] | | | [place] [address] | + + + | Home Phone [...] + | Lesia Castaneda | ECON | [address] | | | | | [place] [address] | | + + + + + | Rosina Castaneda | ECON | Unknown | | + + + + + | Sandy Zamora | ECON | [address] | | | | | [place] | | | | | [address] | | + + + + + Care Team Providers + +------+ + | Care Family Support Coordinator Name | Role | Phone | + +------+ + PCP | Unavailable | + +------+ + Encounter Details +--------+ + + + + | Date | Type | Department | Care Team | Description | +--------+ + + + + | 09/27/ | Hospital | [facility] | Jacob Araiza MD | | | 1999 | Encounter | MED CTR MP INTRA OP | [address] | | | | | [address] | [place] | | | | | [place] | [address] | | | | | [address] | [phone] | | | | | [phone] | | | +--------+ + + + [...] | | | | | [place], [place] | | | | | | [address] | | | | | | | | +--------+---------+ + + + documented as of this encounter Visit Diagnoses Not on filedocumented in this encounter"
--- OUTSIDE RECORDS SUMMARY | ~2019-12-09 | XMS | Encounter Summary ---
Demographics + + + | Address | [address] | | | [place] [address] | + + + | Home Phone | | + + + | Preferred Language | Unknown | + + + | Marital Status | | + + + | Jew Affiliation | 1041 | + + + | Race | Unknown | + + + | Ethnic Group | Unknown | + + + Author + + + | Author | [facility] | | | and [place] | + + + | Organization | [facility] | | | and [place] | + + + | Address | Unknown | + + + | Phone | Unavailable | + + + Support + + + + + | Name | Relationship | Address | Phone | + + + + + | Lesia Castaneda | ECON | [address] | | | | | [place] [address] | | + + + + + | Rosina Castaneda | ECON | Unknown | | + + + + + | Sandy Zamora | ECON | [address] | | | | | [place] | | | | | [address] | | + + + + + Care Team Providers + +------+ + | Care Sawmill Hand Name | Role | Phone | + [...] | | right hip | | [place] | | | | | prosthetic | | [address] | | | | | joint, | | Phone: | | | | | initial | | [phone] | | | | | encounter | | Fax: | | | | | ([facility]) | | [phone] | | | | | Procedures | | | | | | | [place] CONV PREV | | | | | [...] + + + + | 07/13/ | Hospital | [facility] | Maxi Zamora MD | | | 2020 | Encounter | MED CTR XRAY [address] [facility] | | | | | [place] | [place] | | | | | [place] [address] | [address] | | | | | [phone] | [phone] | | | | | | | [...] + + + +---------+ + + | | Take 1 tablet by | 14 | 0 | 07/16/19 | | | sulfamethoxazole-tri | mouth 2 times daily. | tablet | | 20 | 0 | | methoprim (BACTRIM | | | | | | | DS) 800-160 mg per | | | | | | | tablet | | | [...] | | | | | [place] | | | | | | [address] | | | | | | | | +--------+---------+ + + + documented as of this encounter Procedures + +--------+ + + + | Procedure Name | Priori | Date/Time | Associated Diagnosis | Comments | | | ty | | | | + +--------+ + + + | XR PELVIS 1 OR 2 VW | Routin | 07/13/2019 | | Results for this | | | e | 4:24 PM | | procedure are in the | | | | PST | | results section. | + +--------+ + + + documented in this encounter Results XR Pelvis 1 or 2 Vw (07/13/2019 4:24 PM PST) + + | Specimen | + + | | + + + + + | Impressions | Performed At | + + + | Interval placement of right hip arthroplasty hardware. Dictated | [facility] | | and Signed by: Aj Bueno MD Electronically signed: 07/13/2019 | | | 4:14 PM | | + + + + + + | Narrative | Performed At | + + + | XR Pelvis 1 or 2 Vw 07/13/2019 4:14 PM HISTORY: Intraoperative | [facility] | | x-ray. COMPARISON: None. FINDINGS: Intraoperative x-rays show | | | placement of right hip arthroplasty hardware. ORIF screws are seen | | | of the left femoral neck. 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 | | | | | + + + + + | Procedure Note | + + | Jhon, Rad Results In - 07/13/2019 4:24 PM PST XR Pelvis 1 or 2 Vw 07/13/2019 4:14 PM | | | | HISTORY: Intraoperative x-ray. | | | | COMPARISON: None. | | | | FINDINGS: | | Intraoperative x-rays show placement of right hip arthroplasty hardware. ORIF | | screws are seen of the left femoral neck. Prostate brachytherapy seeds are | | observed. | | | | IMPRESSION: | | Interval placement of right hip arthroplasty hardware. | | | | Dictated and Signed by: Aj Bueno MD | | Electronically signed: 07/13/2019 4:14 PM | + + + +---------+ + + | Performing | Address | City/State/Zipcode | Phone Number | | Organization | | | | + +---------+ + + | [facility] | | | | + +---------+ + + documented in this encounter Visit Diagnoses Not on filedocumented in this encounter"
--- OUTSIDE RECORDS SUMMARY | ~2019-12-09 | XMS | Encounter Summary ---
Demographics + + + | Address | [address] | | | [place] [address] | + + + | Home Phone | | + + + | Preferred Language | Unknown | + + + | Marital Status | | + + + | Temple Affiliation | 1041 | + + + | Race | Unknown | + + + | Ethnic Group | Unknown | + + + Author + + + | Author | [facility] | | | and [place] | + + + | Organization | [facility] | | | and [place] | + + + | Address | Unknown | + + + | Phone | Unavailable | + + + Support + + + + + | Name | Relationship | Address | Phone | + + + + + | Lesia Castaneda | ECON | [address] | | | | | [place] [address] | | + + + + + | Rosina Castaneda | ECON | Unknown | | + + + + + | Sandy Zamora | ECON | [address] | | | | [place] | | | | | [address] | | + + + + + Care Team Providers + +------+ + | Care Shipyard Painter Apprentice Name | Role | Phone | + +------+ + PCP | Unavailable | + +------+ + Encounter Details +--------+ + + + + | Date | Type | Department | Care Team | Description | +--------+ + + + + | 01/12/ | Hospital | [facility] | | | | 2007 - | Encounter | MED CTR CANCER | | | | | | CENTER [address] | | | | 01/23/ | | [place] | | | | 2007 | | [address] | | | | | | [phone] | | | +--------+ + + + [...] | | | | | [place], [place] | | | | | | [address] | | | | | | | | +--------+---------+ + + + documented as of this encounter Visit Diagnoses Not on filedocumented in this encounter"
--- OUTSIDE RECORDS SUMMARY | ~2019-12-09 | XMS | Encounter Summary ---
Demographics + + + | Address | [address] | | | [place] [address] | + + + | Home Phone | | + + + | Preferred Language | Unknown | + + + | Marital Status | | + + + | Holiness Affiliation | Unknown | + + + | Race | White | + + + | Ethnic Group | Not or | + + + Author + + + | Author | [facility] | + + + | Organization | [facility] | + + + | Address | Unknown | + + + | Phone | Unavailable | + + + Support + + +---------+ + | Name | Relationship | Address | Phone | + + +---------+ + | Sandy Zamora | ECON | Unknown | | + + +---------+ + Care Team Providers + +------+ + | Care Retail Salesworker Name | Role | Phone | + +------+ + | Jerome Ray MD | PCP | | + +------+ + Reason for Visit +--------+ + | Reason | Comments | +--------+ + | Other | | +--------+ + Encounter Details +--------+ + + + + | Date | Type | Department | Care Team | Description | +--------+ + + + + | 10/09/ | Telephone | [facility] | [place], | Other | | 2015 | | [facility] at [place] | DDS [address] | | | | | [place] | [address] | | | | | [address] | [place], [place] | | | | | [place] | [address] | | | | | [address] | [phone] | | | | | floor [place], [place] | | | | | | [address] | | | | | | [phone] | | | +--------+ + + + [...]
--- OUTSIDE RECORDS SUMMARY | ~2019-12-09 | XMS | Encounter Summary ---
Demographics + + + | Address | [address] | | | [place] [address] | + + + | Home Phone [...] + | Lesia Castaneda | ECON | [address] | | | | | [place] [address] | | + + + + + | Rosina Castaneda | ECON | Unknown | | + + + + + | Sandy Zamora | ECON | [address] | | | | [place] | | | | | [address] | | + + + + + Care Team Providers + +------+ + | Care Security Operations Analyst Name | Role | Phone | + +------+ + PCP | Unavailable | + +------+ + Encounter Details +--------+ + + + + | Date | Type | Department | Care Team | Description | +--------+ + + + + | 05/28/ | Hospital | [facility] | | | | 2006 - | Encounter | MED CTR CANCER | | | | | | CENTER [address] | | | | 06/25/ | | [place] | | | | 2006 | | [address] | | | | | | [phone] | | | +--------+ + + + [...] | | | | | [place], [place] | | | | | | [address] | | | | | | | | +--------+---------+ + + + documented as of this encounter Visit Diagnoses Not on filedocumented in this encounter"
--- OUTSIDE RECORDS SUMMARY | ~2019-12-09 | XMS | Encounter Summary ---
Demographics + + + | Address | [address] | | | [place] [address] | + + + | Home Phone [...] + | Lesia Castaneda | ECON | [address] | | | | | [place] [address] | | + + + + + | Rosina Castaneda | ECON | Unknown | | + + + + + | Sandy Zamora | ECON | [address] | | | | [place] | | | | | [address] | | + + + + + Care Team Providers + +------+ + | Care Telephone Station Repairer Name | Role | Phone | + +------+ + | Jerome Ray | PCP | | | MD | | | + +------+ + Reason for Visit +--------+--------+ + | Reason | Onset | Comments | | | Date | | +--------+--------+ + | Other | 01/13/ | | | | 2013 | | +--------+--------+ + Encounter Details +--------+ + + + + | Date | Type | Department | Care Team | Description | +--------+ + + + + | 01/13/ | Telephone | [facility] | Demond Castellon | Other | | 2013 | | MED [facility] | MD [address] | | | | | [facility] [address] | | | | | [address] [place] | [place] [address] | | | | | [place] [address] | [phone] | | | | | [phone] | | | +--------+ + + + [...] Telephone Encounter - Jasmina Cotter RN - 01/13/2014 3:56 PM PDTTelephone call to rai satrkey, did not run PSA today and can not add on today because of type of specimen tube drawn. Patient asking that he have on order for PSA to be done at [facility] this coming w jairon please. Hard copy order written by Dr. Castellon and faxed with confirmation to [facility]. P DTTelephone Encounter - Luz Ramos - 01/13/2014 3:37 PM PDTCalling to get the results of his lab draw he had for today's appointment. documented in this encounter Plan of Treatment +--------+---------+ + + + | Date | Type | Specialty | Care Team | Description | +--------+---------+ + + + | 02/01/ | Office | Cardiology | Jazlyn Almeida, | | | 2019 | Visit | | MD Vikram RICARDO | | | | | | [place] | | | | | | [address] | | | | | | | | +--------+---------+ + + + documented as of this encounter Visit Diagnoses Not on filedocumented in this encounter"
--- OUTSIDE RECORDS SUMMARY | ~2019-12-09 | XMS | Encounter Summary ---
Demographics + + + | Address | [address] | | | [place] [address] | + + + | Home Phone | | + + + | Preferred Language | Unknown | + + + | Marital Status | | + + + | Zoroastrianism Affiliation | 1041 | + + + | Race | Unknown | + + + | Ethnic Group | Unknown | + + + Author + + + | Author | [facility] | | | and [place] | + + + | Organization | [facility] | | | and [place] | + + + | Address | Unknown | + + + | Phone | Unavailable | + + + Support + + + + + | Name | Relationship | Address | Phone | + + + + + | Lesia Castaneda | ECON | [address] | | | | | [place] [address] | | + + + + + | Rosina Castaneda | ECON | Unknown | | + + + + + | Sandy Zamora | ECON | [address] | | | | | [place] | | | | | [address] | | + + + + + Care Team Providers + +------+ + | Care Sheet Metal Shop Foreman Name | Role | Phone | + +------+ + | Jerome Ray | PCP | | | MD | | | + +------+ + Encounter Details +--------+ + + + + | Date | Type | Department | Care Team | Description | +--------+ + + + + | 03/29/ | [facility] | [facility] | Demond Castellon | CA prostate, adenoca | | 2015 | Encounter | [facility] | MD [address] | [facility] | | | | ONCOLOGY CLINIC [address] | [facility] | | | | | [facility] | [place] [address] | | | | | [place] [address] | [phone] | | | | | [phone] | | | +--------+ + + + [...] + + + | Blood Pressure | 134/58 | 03/29/2015 8:42 AM | | | | | PST | | + + + + + | Pulse | 61 | 03/29/2015 8:42 AM | | | | | PST | | + + + + + | Temperature | 35.8 C (96.4 F) | 03/29/2015 8:42 AM | | | | | PST | | + + + + + | Respiratory Rate | 16 | 03/29/2015 8:42 AM | | | | | PST | | + + + + + | Oxygen Saturation | 100% | 03/29/2015 8:42 AM | | | | | PST | | + + + + + | Inhaled Oxygen | - | - | | | Concentration | | | | + + + + + | Weight | 77.7 kg (171 lb 4.8 | 03/29/2015 8:42 AM | | | | oz) | PST | | + + + + + | Height | - | - | | + + + + + | Body Mass Index | 22.95 | 10/06/2013 12:45 PM | | | [...] by mouth | | 0 | | 02/04/201 | | Bisulfate (PLAVIX | Daily. | [...] encounter Progress Notes Demond Castellon MD - 03/29/2015 9:25 AM PSTFormatting of this note might be diff erent from the original. Hem-Onc Progress Note [facility] Pt. Name/Age/: Demond Carrasquillo Tonya 84 y.o. 1930 Med. Record Number: [id number] Date of admission: 03/29/2015 Assessment and plan: 1. 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 Stroke, November, 3. Angina Pectoris, Dec, 2013, S/p PCI, [facility], [place] Review of laboratory testing today noting slight worsening in mild to moderate normocytic a nemia thought to be on the basis of chronic disease. We recommended beginning a multivitami n with iron as a means of mitigating. Discussing pros and cons of ibuprofen as an analgesia acknowledging its potential untoward effect with regard to cardiovascular disease but believe patient protected from the effects of aspirin and statin medication to allow such therapy. We also discussed using acetaminoph en as a pain adjunct additionally. Planned a follow-up telephone call to report out patient's PSA. If stable have asked to re turn in 6 months time. Subjective: The patient chart and medications were reviewed in detail and the patient was seen and exam ined. Demond Castaneda is a 84 y.o. male returns today for follow-up and monitoring of biochemical relapse of prostate cancer. 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 He describes a hard summer particularly for the katal who had few [facility] es for water. Subjectively patient roughly stable in the time since our visit in spring continuing to exp erience symptoms referable to degenerative disease. He describes missing his Celebrex as ac etaminophen analgesia of secondary benefit. He continues a program for cardiovascular inclu ding statin medication, and aspirin. He is also continuing vitamin D3 PSH: Reviewed, no changes to admission H&P. Review of Systems: Constitutional: Denies fatigue. Denies high fevers, shaking chills, anorexia, nausea, vomit ing or night sweats. Appetite without changes. Pt unintentional weight loss is 6-7lbs. Ear, Nose, Mouth, Throat: Denies odynophagia, dysphagia, or tinnitus. Cardiovascular: Denies shortness of breath, dyspnea on exertion, chest pain, palpitations o r orthopnea. Respiratory: Denies cough, hemoptysis, or sputum production. Gastrointestinal: Denies abdominal pain, constipation, diarrhea, melena, or bright red bloo d per rectum. Genitourinary: Denies hematuria or dysuria. Musculoskeletal: Denies joint tenderness. Pt reports intermittent bilateral knee pain, janelle es pain at this time. Neurologic: Denies headache, visual changes, or numbness/tingling of the extremities. Endocrine: Denies peripheral edema or heat/cold intolerance. Hematologic: Denies spontaneous bruising or bleeding. Pt reports bruising easily. Integumentary: Denies rash, wounds or other skin concerns. Pain: Denies pain. Review of systems as above otherwise negative Scheduled Medications: Continuous Infusions: PRN Meds:. Allergy: No Known Allergies Objectives: Temp: 35.8 C (96.4 F) BP: 134/58 mmHg Pulse: 61 Resp: 16 SpO2: 100 % on Min/Max Temp past 24 hours:Temp Av.8 C (96.4 F) Min: 35.8 C (96.4 F) Max: 3 5.8 C (96.4 F) No intake or output data in the 24 hours ending 03/29/15 0926 Wt. Admission: Weight: 77.7 kg (171 lb 4.8 oz) Wt. Current: Weight: 77.7 kg (171 lb 4.8 oz) Physical Exam: Exam: General: The patient is alert and oriented. No acute distress. Psychiatric: Normal mood and affect. Diagnostic studies: Available data and images were reviewed personally. See reports. Significant results and findings are addressed here or in the Assessment and Plan. Recent Labs Lab 03/29/15 0832 WBC 4.2 HGB 9.7* HCT 28.8* PLT 191 No results for input(s): NA, K, CL, CO2, BUN, CREA, GLU, MG, CALCIUM, PHOS, BILITOT, AST, A LT, ALKPHOS, ALBUMIN in the last 168 hours. Invalid input(s): PROT Microbiology Results (72 hrs) No results found for the last 72 hours. No results found. Electronically signed by: Demond Castellon, 03/29/2015 9:26 [facility] TIME SPENT 20 MIN. > 50% AT BEDSIDE, WITH FAMILY/PATIENT IN CARE AND EMPLOYEE'S REPRESENTATIVE ON UNIT AND CO ORDINATION OF CARE Portions of this chart may have been created with [email or web address] voice recognition software. Occasi onal wrong-word or sound-alike substitutions may have occurred due to the inherent epperson itations of voice recognition software. Please read the chart carefully and recognize, using context, where these substitutions have occurred. Natalya Ivory, [facility] - 03/29/2015 8:45 AM PSTREVIEW OF SYSTEMS Constitutional: Denies fatigue. Denies high fevers, shaking chills, anorexia, nausea, vomit ing or night sweats. Appetite without changes. Pt unintentional weight loss is 6-7lbs. Ear, Nose, Mouth, Throat: Denies odynophagia, dysphagia, or tinnitus. Cardiovascular: Denies shortness of breath, dyspnea on exertion, chest pain, palpitations o r orthopnea. Respiratory: Denies cough, hemoptysis, or sputum production. Gastrointestinal: Denies abdominal pain, constipation, diarrhea, melena, or bright red bloo d per rectum. Genitourinary: Denies hematuria or dysuria. Musculoskeletal: Denies joint tenderness. Pt reports intermittent bilateral knee pain, janelle es pain at this time. Neurologic: Denies headache, visual changes, or numbness/tingling of the extremities. Endocrine: Denies peripheral edema or heat/cold intolerance. Hematologic: Denies spontaneous bruising or bleeding. Pt reports bruising easily. Integumentary: Denies rash, wounds or other skin concerns. Pain: Denies pain. Note: Pt is here for 7 month follow up and labs My chart: documented in this encounter Plan of Treatment +--------+---------+ + + + | Date | Type | Specialty | Care Team | Description | +--------+---------+ + + + | 02/01/ | Office | Cardiology | Jazlyn Almeida, | | | 2019 | Visit | | MD Vikram RICARDO | | | | | | [place], [place] | | | | | | [address] | | | | | | | | +--------+---------+ + + + documented as of this encounter Procedures + +--------+ + + + | Procedure Name | Priori | Date/Time | Associated Diagnosis | Comments | | | ty | | | | + +--------+ + + + | CBC WITH | STAT | 03/29/2015 | CA prostate, | Results for this | | DIFFERENTIAL | | 8:32 AM | adenoca (HCC) | procedure are in the | | | | PST | | results section. | + +--------+ + + + | COMPREHENSIVE | STAT | 03/29/2015 | CA prostate, | Results for this | | METABOLIC PANEL | | 8:32 AM | adenoca (HCC) | procedure are in the | | | | PST | | results section. | + +--------+ + + + documented in this encounter Results Comprehensive Metabolic Panel (03/29/2015 8:32 AM PST) [...] | 1.23 | 0.60 - 1.30 | [facility] | | | | | mg/dL | [facility] | | | | | | MEDICAL | | | | | | CENTER - | | | | | | LABORATORY | | + + + + + + | eGFR if not | 56 (L)Comment: | >=60 | [facility] | | | | GLOMERULAR FILTRATION | mL/min/1.73m2 | [facility] | | | THAI | RATE,ESTIMATED | | MEDICAL | | | | mL/min/1.47k1Zzjb than | | CENTER - | | [...] [address] | [place] | [phone] | | [facility] | | [address] | | | - LABORATORY | | [...] | 0.00 | 0.00 - 0.10 | [facility] | | | Basophils | | K/uL [...] [address] | [place] | [phone] | | [facility] | | [address] | | | - LABORATORY | | | | + + + + + documented in this encounter Visit Diagnoses + + | Diagnosis | + + | CA prostate, adenoca (HCC) Malignant neoplasm of prostate | + + documented in this encounter"
--- OUTSIDE RECORDS SUMMARY | ~2019-12-09 | XMS | Encounter Summary ---
Demographics + + + | Address | [address] | | | [place] [address] | + + + | Home Phone | | + + + | Preferred Language | Unknown | + + + | Marital Status | | + + + | Confucianism Affiliation | 1041 | + + + | Race | Unknown | + + + | Ethnic Group | Unknown | + + + Author + + + | Author | [facility] | | | and [place] | + + + | Organization | [facility] | | | and [place] | + + + | Address | Unknown | + + + | Phone | Unavailable | + + + Support + + + + + | Name | Relationship | Address | Phone | + + + + + | Lesia Castaneda | ECON | [address] | | | | | [place] [address] | | + + + + + | Rosina Castaneda | ECON | Unknown | | + + + + + | Sandy Zamora | ECON | [address] | | | | | [place] | | | | | [address] | | + + + + + Care Team Providers + +------+ + | Care Tip Puncher Name | Role | Phone | + +------+ + PCP | Unavailable | + +------+ + Encounter Details +--------+ + + + + | Date | Type | Department | Care Team | Description | +--------+ + + + + | 09/12/ | Hospital | [facility] | | | | 2005 - | Encounter | MED [facility] | | | | | | CENTER [address] | | | | 12/11/ | | [place] | | | | 2005 | | [address] | | | | | | [phone] | | | +--------+ + + + [...] | | | | | [place], [place] | | | | | | [address] | | | | | | | | +--------+---------+ + + + documented as of this encounter Visit Diagnoses Not on filedocumented in this encounter"
--- OUTSIDE RECORDS SUMMARY | ~2019-12-09 | XMS | Encounter Summary ---
Demographics + + + | Address | [address] | | | [place] [address] | + + + | Home Phone | | + + + | Preferred Language | Unknown | + + + | Marital Status | | + + + | Zoroastrian Affiliation | 1041 | + + + | Race | Unknown | + + + | Ethnic Group | Unknown | + + + Author + + + | Author | [facility] | | | and [place] | + + + | Organization | [facility] | | | and [place] | + + + | Address | Unknown | + + + | Phone | Unavailable | + + + Support + + + + + | Name | Relationship | Address | Phone | + + + + + | Lesia Castaneda | ECON | [address] | | | | | [place] [address] | | + + + + + | Rosina Castaneda | ECON | Unknown | | + + + + + | Sandy Zamora | ECON | [address] | | | | [place] | | | | | [address] | | + + + + + Care Team Providers + +------+ + | Care Monomer Recovery Operator Name | Role | Phone | + +------+ + | Jerome Ray | PCP | | | MD | | | + +------+ + Encounter Details +--------+ + + + + | Date | Type | Department | Care Team | Description | +--------+ + + + + | 04/26/ | Hospital | [facility] | Demond Castellon | CA prostate, adenoca | | 2014 | Encounter | [facility] | MD [address] | (HCC) (Primary Dx); | | | | ONCOLOGY CLINIC [address] | [address] | Malignant neoplasm | | | | [facility] | [place] [address] | of prostate (HCC) | | | | [place] [address] | [phone] | | | | | [phone] | | | +--------+ + + + [...] + + + | Blood Pressure | 135/68 | 04/26/2014 1:25 PM | | | | | PST | | + + + + + | Pulse | 65 | 04/26/2014 1:25 PM | | | | | PST | | + + + + + | Temperature | 35.8 C (96.4 F) | 04/26/2014 1:25 PM | | | | | PST | | + + + + + | Respiratory Rate | 18 | 04/26/2014 1:25 PM | | | | | PST | | + + + + + | Oxygen Saturation | 98% | 04/26/2014 1:25 PM | | | | | PST | | + + + + + | Inhaled Oxygen | - | - | | | Concentration | | | | + + + + + | Weight | 80.7 kg (177 lb 14.6 | 04/26/2014 1:25 PM | | | | oz) | PST | | + + + + + | Height | - | - | | + + + + + | Body Mass Index | 23.84 | 10/06/2013 12:45 PM | | | [...] encounter Progress Notes Demond Castellon MD - 04/26/2014 1:47 PM PSTFormatting of this note might be diff erent from the original. Hem-Onc Progress Note [facility] Pt. Name/Age/: Demond Castaneda 83 y.o. 1930 Med. Record Number: [id number] Date of admission: 04/26/2014 Assessment and plan: 1. 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 Stroke, November, 3. Angina Pectoris Counseling session today first with medication review noting the patient on an agent, celec oxib associated with progression of cardiovascular disease. Given the recent development of angina and the previous strokes believe this should be discontinued immediately. We discussed cardiovascular evaluation that would assess patient's lipid profile, the use o f supportive care such as beta blockers as a means of helping with myocardial reserve. We d iscussed patient's potential candidacy for myocardial revascularization as a means of helpin g with regard to ischemic chest pains. [facility]. I have asked him to contact me to give me his victoria assessment of that care and then to consider possibility of referral to cardiology resources within [facility]. . followup can continue at quarterly intervals. Subjective: The patient chart and medications were reviewed in detail and the patient was seen and exam ined. Demond Castaneda is a 83 y.o. male returns today for monitoring of biochemical relapse of pro state cancer. He is experiencing a very slow progression of increase in PSA now extending back over over the past 3 years. Over this time. His levels have remained less than 4 ng per mL and patie nt has otherwise remained completely asymptomatic in that regard. On the other hand patient experiencing increasing frequency of vascular complications inclu ding a stroke occurring earlier this summer. More recently in February patient had an episod e of weakness that prevented him from getting back up on with scores. He also describes epi sodes of ischemic-like chest pain consistent with angina pectoris. He had been evaluated in [place] that [facility] but was not felt to be a surgical candidate for cerebr ovascular surgery. In the meantime however no one has taken a big picture look at his overa ll cardiovascular system. PSH: Reviewed, no changes to admission H&P. Review of Systems: Constitutional: Pt reports fatigue. Denies high fevers, shaking chills, anorexia, nausea, v omiting, weight loss, or night sweats. Appetite without changes. Ear, Nose, Mouth, Throat: Denies odynophagia, dysphagia, or tinnitus. Cardiovascular: Pt reports shortness of breath, dyspnea on exertion. Denies palpitations or orthopnea. Pt reports any time he exerts himself he feels as his chest is tightening, he st ates he is going to [place] to see a video production engineer at [facility]. Pt states having a stroke . Respiratory: Denies cough, hemoptysis, or sputum production. Gastrointestinal: Denies abdominal pain, constipation, diarrhea, melena, or bright red bloo d per rectum. Genitourinary: Denies hematuria or dysuria. Musculoskeletal: Denies joint pain or tenderness. Neurologic: Denies headache, visual changes, or numbness/tingling of the extremities. Endocrine: Denies peripheral edema or heat/cold intolerance. Hematologic: Denies spontaneous bruising or bleeding. Pt states bruising easily. Integumentary: Denies rash, wounds or other skin concerns. Pain: Denies pain. Review of systems as above otherwise negative Scheduled Medications: Continuous Infusions: PRN Meds:. Allergy: No Known Allergies Objectives: Temp: 35.8 C (96.4 F) BP: 135/68 mmHg Pulse: 65 Resp: 18 SpO2: 98 % on Min/Max Temp past 24 hours:Temp Av.8 C (96.4 F) Min: 35.8 C (96.4 F) Max: 3 5.8 C (96.4 F) No intake or output data in the 24 hours ending 04/26/14 1347 Wt. Admission: Weight: 80.7 kg (177 lb 14.6 oz) Wt. Current: Weight: 80.7 kg (177 lb 14 .6 oz) Physical Exam: Exam: General: The patient [...] results found. Electronically signed by: Demond Castellon, 04/26/2014 13:47 LOCATED WITHIN [facility] TIME SPENT 25 MIN. > 50% AT BEDSIDE, WITH FAMILY/PATIENT IN CARE AND SIDE LASTER ON UNIT AND CO ORDINATION OF CARE Portions of this chart may have been created with [employer] voice recognition software. Occasi onal wrong-word or sound-alike substitutions may have occurred due to the inherent epperson itations of voice recognition software. Please read the chart carefully and recognize, using context, where these substitutions have occurred. Morteza Ivory, [facility] - 04/26/2014 1:29 PM PSTREVIEW OF SYSTEMS Constitutional: Pt reports fatigue. Denies high fevers, shaking chills, anorexia, nausea, vomiting, weight loss, or night sweats. Appetite without changes. Ear, Nose, Mouth, Throat: Denies odynophagia, dysphagia, or tinnitus. Cardiovascular: Pt reports shortness of breath, dyspnea on exertion. Denies palpitations or orthopnea. Pt reports any time he exerts himself he feels as his chest is tightening, he states he is going to [place] to see a video production engineer at [facility]. Pt states having a strok e . Respiratory: Denies cough, hemoptysis, or sputum production. Gastrointestinal: Denies abdominal pain, constipation, diarrhea, melena, or bright red bloo d per rectum. Genitourinary: Denies hematuria or dysuria. Musculoskeletal: Denies joint pain or tenderness. Neurologic: Denies headache, visual changes, or numbness/tingling of the extremities. Endocrine: Denies peripheral edema or heat/cold intolerance. Hematologic: Denies spontaneous bruising or bleeding. Pt states bruising easily. Integumentary: Denies rash, wounds or other skin concerns. Pain: Denies pain. Note:Pt is here for follow up and labs. Pt states having a stoke in November. My chart: documented in this encounter Procedure Notes LYDIA MONTELONGO - 06/22/2014 12:00 AM PST 15 5:12 PM PSTdocumented in this encounter Plan of Treatment +--------+---------+ + + + | Date | Type | Specialty | Care Team | Description | +--------+---------+ + + + | 02/01/ | Office | Cardiology | Jazlyn Almeida, | | | 2019 | Visit | | MD Vikram RICARDO | | | | | | [place] [address] [place], [place] | | | | | | [address] | | | | | | | [...]
--- OUTSIDE RECORDS SUMMARY | ~2019-12-09 | XMS | Encounter Summary ---
Demographics + + + | Address | [address] | | | [place] [address] | + + + | Home Phone | | + + + | Preferred Language | Unknown | + + + | Marital Status | | + + + | Buddhism Affiliation | 1041 | + + + | Race | Unknown | + + + | Ethnic Group | Unknown | + + + Author + + + | Author | [facility] | | | and [place] | + + + | Organization | [facility] | | | and [place] | + + + | Address | Unknown | + + + | Phone | Unavailable | + + + Support + + + + + | Name | Relationship | Address | Phone | + + + + + | Lesia Castaneda | ECON | [address] | | | | | [place] [address] | | + + + + + | Rosina Castaneda | ECON | Unknown | | + + + + + | Sandy Zamora | ECON | [address] | | | | [place] | | | | | [address] | | + + + + + Care Team Providers + +------+ + | Care Marketing Outreach Coordinator Name | Role | Phone | + +------+ + | Jerome Ray | PCP | | | MD | | | + +------+ + Reason for Visit +--------+--------+ + | Reason | Onset | Comments | | | Date | | +--------+--------+ + | Other | 10/11/ | | | | 2014 | | +--------+--------+ + Encounter Details +--------+ + + + + | Date | Type | Department | Care Team | Description | +--------+ + + + + | 10/11/ | Telephone | [facility] | Demond Castellon | Other | | 2013 | | MED [facility] | MD [address] | | | | | ONCOLOGY CLINIC [address] | [address] | | | | | [address] [place] | [place] [address] | | | | | [place] [address] | [phone] | | | | | [phone] | | | +--------+ + + + [...] Telephone Encounter - Jasmina Cotter RN - 10/11/2013 9:08 AM PDTNotified per teleph one conversation with spouse of patient. elephone Encounter - Brigid Vides - 10/11/2013 8:27 AM PDTWould like to know his PSA results from last week. Electronically signed by Brigid Vides at 8:28 AM PDTdocumented in this encounter Plan of Treatment +--------+---------+ + + + | Date | Type | Specialty | Care Team | Description | +--------+---------+ + + + | 02/01/ | Office | Cardiology | Jazlyn Almeida, | | | 2019 | Visit | | MD Vikram RICARDO | | | | | | [place] | | | | | | [address] | | | | | | | | +--------+---------+ + + + documented as of this encounter Visit Diagnoses Not on filedocumented in this encounter"
--- OUTSIDE RECORDS SUMMARY | ~2019-12-09 | XMS | Encounter Summary ---
Demographics + + + | Address | [address] | | | [place] [address] | + + + | Home Phone | | + + + | Preferred Language | Unknown | + + + | Marital Status | | + + + | Denominational Affiliation | 1041 | + + + | Race | Unknown | + + + | Ethnic Group | Unknown | + + + Author + + + | Author | [facility] | | | and [place] | + + + | Organization | [facility] | | | and [place] | + + + | Address | Unknown | + + + | Phone | Unavailable | + + + Support + + + + + | Name | Relationship | Address | Phone | + + + + + | Lesia Castaneda | ECON | [address] | | | | | [place] [address] | | + + + + + | Rosina Castaneda | ECON | Unknown | | + + + + + | Sandy Zamora | ECON | [address] | | | | [place] | | | | | [address] | | + + + + + Care Team Providers + +------+ + | Care Cartography/Mapping Technician Name | Role | Phone | [...] | | | positive | | [place] [address] | | | | | stools | | Phone: | | | | | 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 | | [phone] | | | | | [D50.8] | | | | | | | Hematest | | | | | | | positive | | | | | | | stools | | | | | | | [R19.5] | | | | | | | Procedures | | | | | | | MS | | | | | | | COLONOSCOPY | | | | | | | FLX DX | | | | | | | W/COLLJ SPEC | | | | | | | WHEN PFRMD | | | | | | | MS | | | | | | | [...] + + + + | 07/24/ | Anesthesia | [facility] | Pipo Dickerson MD | | | 2015 | Event | [facility] | [address] | | | | | [address] | [place] | | | | | [place] | [address] | | | | | [address] | | | | | | [phone] | | | +--------+ + + + + Anesthesia Record + + + + + | Procedure Name | Responsible | Anesthesia Start | Anesthesia Stop Time | | | Anesthesiologist | Time | | + + + + + | EGD / COLONOSCOPY | Pipo Dickerson MD | 07/25/15 1027 | 07/25/15 1105 | | (N/A ) | | | | + + + + + +----+---+ + + | Da | T | Event | Comment | | te | i | | | | | m | | | | | e | | | +----+---+ + + | 03 | 1 | | | | /0 | 0 | | | | 1/ | 2 | | | | 20 | 5 | | | | 16 | | | | +----+---+ + + | | 1 | An Checkout | Pre-use anesthesia machine/equipment checkout. | | | 0 | | | | | 2 | | | | | 6 | | | +----+---+ + + | | 1 | An Start | Reassessment prior to anesthesia induction/procedure. | | | 0 | | | | | 2 | | | | | 7 | | | +----+---+ + + | | 1 | An Start | | | | 0 | Data | | | | 3 | | | | | 0 | | | +----+---+ + + | | 1 | An | | | | 0 | Induction | | | | 3 | | | | | 1 | | | +----+---+ + + | | 1 | An Stop | Patient handed off to recovery nurse. | | | 0 | | | | | 5 | | | +----+---+ + + +------+ | Meds | +------+ + + + | Name | Total | + + + | propofol | 150 mg | + + + | propofol | 180.98 mg | + + + | lidocaine 2% | 20 mg | + + + | lactated ringers (LR) infusion | 700 mL | + + + + + | Name | + + | O2 Flow Rate (L/Min) | + + + + | No blood administrations on file. | + + +--------+ + + + | Type | Details | Placement | Removal | +--------+ + + + | Periph | 07/25/15; 940; 20 gauge; | 07/25/15940 by | 07/25/15 1141 by | | eral | distraction, tolerated well; no | Nohemi E | Laurence Contreras, | | IV | longer indicated; short term use; | Teklemariam, RN | RN | | | 07/25/15; 1141 | | | +--------+ + + + documented in this encounter Social History + +-------+ +--------+ + | [...] encounter OR Notes Anesthesia Postprocedure Evaluation - Pipo Dickerson MD - 07/25/2015 11:06 AM PSTFormattin g of this note might be different from the original. ANESTHESIA POSTANESTHESIA EVALUATION Demond Castaneda 84 y.o. male 1930 [id number] Procedure(s) EGD / COLONOSCOPY (N/A ) Filed Vitals: 07/25/15 0909 07/25/15 1104 BP: 134/64 112/56 Pulse: 54 66 Temp: 36.1 C (97 F) 37.1 C (98.8 F) Resp: 18 SpO2: 95% 99% Cooperates? Yes Mental Status Performs simple tasks. Respiratory Satisfactory - Airway patent (self maintained). Cardiovascular Satisfactory Blood pressure and heart rate acceptable Temperature Satisfactory Pain Satisfactory N/V Control Satisfactory Hydration Satisfactory No signs of dehydration Complications None apparent Electronically signed by Pipo Dickerson MD 07/25/2015 11:06 [facility] nesthesia Preprocedur e Evaluation - Pipo Dickerson MD - 07/25/2015 10:22 AM PST ANESTHESIA PREANESTHESIA EVALUATION Demond Castaneda 84 y.o. male 1930 [id number] Procedure(s): EGD / COLONOSCOPY (N/A ) Medical history, anesthesia, medications, allergy, NPO status verified histories reviewed. Review of Systems / Med History Physical Exam Airway MP II, TM >3 FB, Mouth opening >2 FB. Neck: full ROM, extends >30 degrees. Jaw protrus ion normal. Dental Grossly normal except where noted below.; (+) dentures-upper. CV Rhythm regular. Rate Normal. (-) murmur. Pulm Clear to auscultation bilaterally. Neuro Grossly normal. Anesthesia Plan ASA 3 Type: TIVA. Induction: Intravenous. Potential problems: None anticipated. Monitors: Standard ASA monitors. Consent statement:Anesthetic plan, alternatives, risks and benefits discussed with patient. Risks discussed included (but were not limited to): sore throat, respiratory events, heart problems, dental injury, . Consenting person understands and agrees to proceed. documented in this enc ounter Plan of Treatment +--------+---------+ + + + | Date | Type | Specialty | Care Team | Description | +--------+---------+ + + + | 02/01/ | Office | Cardiology | Jazlyn Almeida, | | | 2019 | Visit | | MD [address] | | | | | | [place] | | | | | | [address] | | | | | | | | +--------+---------+ + + + documented as of this encounter Visit Diagnoses Not on filedocumented in this encounter Administered Medications + +---------+ +------+------+------+ | Medication Order | MAR | Action | Dose | Rate | Site | | | Action | Date | | | | + +---------+ +------+------+------+ | lactated ringers (LR) infusion | New Bag | 07/25/19 | | | | | at 10-100 mL/hr, Intravenous, | | 16 10:00 | | | | | CONTINUOUS, Starting 07/25/15 | | AM PST | | | | | at 0930, TKO., Pre-op | | | | | | + +---------+ +------+------+------+ +---+---+ | | | +---+---+ + +-------+ +-------+---+---+ | lidocaine (PF) 2% injection | Given | 07/25/19 | 20 mg | | | | Intravenous, PRN, Starting Tue | | 16 10:31 | | | | | 07/25/15 at 1031, Anesthesia | | AM PST | | | | | Intra-op | | | | | | + +-------+ +-------+---+---+ +---+---+ | | | +---+---+ + +-------+ +-------+---+---+ | propofol (DIPRIVAN) injection | Given | 07/25/19 | 50 mg | | | | PRN, Starting 07/25/15 at 1031, | | 16 10:32 | | | | | Anesthesia Intra-op | | AM PST | | | | + +-------+ +-------+---+---+ +-------+ +--------+---+---+ | Given | 07/25/19 | 100 mg | | | | | 16 10:31 | | | | | | AM PST | | | | +-------+ +--------+---+---+ +---+---+ | | | +---+---+ + + + + +-------+---+ | propofol (DIPRIVAN) injection | Rate/Dos | 07/25/19 | 50 | 22.9 | | | Intravenous, CONTINUOUS PRN, | e Change | 16 10:57 | mcg/kg/m | mL/hr | | | Starting 07/25/15 at 1033, | | AM PST | in | | | | Anesthesia Intra-op | | | | | | + + + + +-------+---+ + + + +-------+---+ | Rate/Dose Change | 07/25/19 | 75 | 34.3 | | | | 16 10:52 | mcg/kg/m | mL/hr | | | | AM PST | in | | | + + + +-------+---+ | New Bag | 07/25/19 | 100 | 45.7 | | | | 16 10:33 | mcg/kg/m | mL/hr | | | | AM PST | in | | | + + + +-------+---+ +---+---+ | | | +---+---+ documented in this encounter"
--- OUTSIDE RECORDS SUMMARY | ~2019-12-09 | XMS | Encounter Summary ---
Demographics + + + | Address | [address] | | | [place] [address] | + + + | Home Phone | | + + + | Preferred Language | Unknown | + + + | Marital Status | | + + + | Taoist Affiliation | 1041 | + + + | Race | Unknown | + + + | Ethnic Group | Unknown | + + + Author + + + | Author | [facility] | | | and [place] | + + + | Organization | [facility] | | | and [place] | + + + | Address | Unknown | + + + | Phone | Unavailable | + + + Support + + + + + | Name | Relationship | Address | Phone | + + + + + | Lesia Castaneda | ECON | [address] | | | | | [place] [address] | | + + + + + | Rosina Castaneda | ECON | Unknown | | + + + + + | Sandy Zamora | ECON | [address] | | | | | [place] | | | | | [address] | | + + + + + Care Team Providers + +------+ + | Care Psychology Technician Name | Role | Phone | + +------+ + PCP | Unavailable | + +------+ + Encounter Details +--------+ + + + + | Date | Type | Department | Care Team | Description | +--------+ + + + + | 04/30/ | Hospital | [facility] | | | | 2006 - | Encounter | [facility] | | | | | | [facility]ENTER [address] | | | | 05/25/ | | [place] | | | | 2006 | | [address] | | | | | | [phone] | | | +--------+ + + + [...] | | | | | [place], [place] | | | | | | [address] | | | | | | | | +--------+---------+ + + + documented as of this encounter Visit Diagnoses Not on filedocumented in this encounter"
--- OUTSIDE RECORDS SUMMARY | ~2019-12-09 | XMS | Encounter Summary ---
Demographics + + + | Address | [address] | | | [place] [address] | + + + | Home Phone [...] + | Lesia Castaneda | ECON | [address] | | | | | [place] [address] | | + + + + + | Rosina Castaneda | ECON | Unknown | | + + + + + | Sandy Zamora | ECON | [address] | | | | | [place] | | | | | [address] | | + + + + + Care Team Providers + +------+ + | Care Business Relationship Manager Name | Role | Phone | + +------+ + PCP | Unavailable | + +------+ + Encounter Details +--------+ + + + + | Date | Type | Department | Care Team | Description | +--------+ + + + + | 05/03/ | Hospital | [facility] | | | | 2008 | Encounter | [facility] | | | | | | CENTER [address] | | | | | | [place] | | | | | | [address] | | | | | | [phone] | | | +--------+ + + + [...] [place] | | | | | | [address] | | | | | | | | +--------+---------+ + + + documented as of this encounter Visit Diagnoses Not on filedocumented in this encounter"
--- OUTSIDE RECORDS SUMMARY | ~2019-12-09 | XMS | Encounter Summary ---
Demographics + + + | Address | [address] | | | [place] [address] | + + + | Home Phone | | + + + | Preferred Language | Unknown | + + + | Marital Status | | + + + | [employer] Affiliation | 1041 | + + + | Race | Unknown | + + + | Ethnic Group | Unknown | + + + Author + + + | Author | [facility] | | | and [place] | + + + | Organization | [facility] | | | and [place] | + + + | Address | Unknown | + + + | Phone | Unavailable | + + + Support + + + + + | Name | Relationship | Address | Phone | + + + + + | Lesia Rose | ECON | [address] | | | | | [place] [address] | | + + + + + | Rosina Rose | ECON | Unknown | | + + + + + | Sandy Zamora | ECON | [address] | | | | | [place] | | | | | [address] | | + + + + + Care Team Providers + +------+ + | Care Heating And Refrigeration Inspector Name | Role | Phone | + +------+ + | Jerome Ray | PCP | | | MD | | | + +------+ + Encounter Details +--------+ + + + + | Date | Type | Department | Care Team | Description | +--------+ + + + + | 06/16/ | Hospital | [facility] | Conversion | | | 2015 - | Encounter | [facility] | Transaction, | | | | | CLINICAL DECISION | Provider Unknown | | | 06/17/ | | [address] [facility] | [phone] | | | 2014 | | | | | | | | [address] | Justyn Pickering, | | | | | [phone] | MD [address] [facility] | | | | | | [address] | | | | | | [phone] | | | | | | | [...] + + documented as of this encounter Discharge Summaries Arash Marrero - 06/17/2014 10:13 AM PST Discharge Summaries by Arash Marrero MD at 06/17/14 1013 Author: Arash Marrero MD Service: Cardiology Author Type: Physician Filed: 06/27/14 1524 Date of Service: 06/17/14 1013 Status: Addendum Matzo Forming Machine Operator: Arash Marrero MD (Physician) Related Notes: Original Note by Arash Marrero MD (Physician) filed at 06/20/[address] [place] [address] Service: Cardiology Discharge Summary Date of Admission: 06/16/2014 Date of Discharge: 06/17/2014 Discharge Physician: Arash Marrero MD PROCEDURES: Left heart catheterization with unsuccessful attempt for angioplasty for 100% GREENS KEEPER of the se cond obtuse marginal. HOSPITAL COURSE: Mr. 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 T he patient was observed overnight to rule out any complications and a limited 2D echocardiog alejandro was done next day showing no evidence of pericardial effusion. The patient was discharge d in stable condition with the plan to have another attempt of GREENS KEEPER in the GREENS KEEPER center versus consideration of single bypass surgery. DISCHARGE EXAM Vital Signs: BP 118/56 | Pulse 62 | Temp(Src) 97.8 F (36.6 C) (Oral) | Resp 16 | Ht 1.88 m (6' 2") | Wt 78.019 kg (172 lb) | BMI 22.07 kg/m2 | SpO2 96% HEENT: No xanthelasmas. Extraocular movements were intact. No jaundice. NECK: no JVD, lymphadenopathy. Trachea is at midline. Thyroid is not palpable. CARDIAC: There is normal S1 and S2. No added sounds, murmurs, gallop, or rub. CHEST: Normal bilateral symmetrical chest excursion. Good bilateral air entry with no crack les or wheezing. No evidence of dullness. ABDOMEN: Soft and lax. No tenderness. No palpable organs. Active bowel sounds. EXTREMITIES: No lower extremities edema. NEURO: Alert and oriented times three with no focal deficit. Cranial nerves are grossly no rmal. SKIN: No bruises or rash. DATA: Recent Labs Lab 06/16/14 1210 NA 140 K 4.0 CO2 26 BUN 24 CREATININE 1.31* No results for input(s): CKTOTAL, CKMB, CKMBINDEX, TROPONINI in the last 168 hours. Recent Labs Lab 06/16/14 1210 WBC 3.7* HGB 10.0* HCT 30.0* MCV 93.9 PLT 177 PLAN: 1. Medical management. 2. Referral to a GREENS KEEPER center for attempt of angioplasty for the second obtuse marginal. If t hat is unsuccessful then the consideration is single-vessel bypass surgery if clinically ind icated. DISCHARGE MEDICATIONS: Medication List CONTINUE taking these medications aspirin 81 MG EC tablet Refills: 0 Cholecalciferol 5000 UNITS Tabs Refills: 0 clopidogrel 75 MG tablet Refills: 0 Commonly known as: PLAVIX Disposition: Home Condition: Stable Code Status: Full Code Discharge took 20 minutes, to include final examination, discussion of admission, and prepa ration of prescriptions, instructions for on-going care, follow-up and documentation of disc harge summary. Arash Marrero MD 06/20/2014 documented in this encount er Medications at Time of Discharge + + [...] documented as of this encounter Progress Notes Conversion Transaction, Provider Unknown - 06/17/2014 12:49 PM PSTFormatting of this note m ight be different from the original. Case Management by Katja Pratt RN at 06/17/14 4542 Author: Katja Pratt RN Service: (none) Author Type: Registered Nurse Filed: 06/17/14 3897 Date of Service: 06/17/14 7087 Status: Signed Matzo Forming Machine Operator: Katja Pratt RN (Registered Nurse) Late entry: Discharge planning: JORGE ALBERTO spoke with the patient regarding discharge needs. Per his report, he did not identify needs and feel that the pt does not need to be seen by CM a t this time. He lives at home with his with his dtr suppoorting him also. He has a walk-in s hower, cane, walker and raised toilet seat. He is independent with ADL's and mobility.I enc ouraged him to contact CM if a need arises. onver zahida Transaction, Provider Unknown - 06/17/2014 11:43 AM PST Nurse Progress Note by Taylor Lainez RN at 06/17/14 1143 Author: Taylor Lainez RN Service: (none) Author Type: Registered Nurse Filed: 06/17/14 1144 Date of Service: 06/17/14 1143 Status: Signed Matzo Forming Machine Operator: Taylor Lainez RN (Registered Nurse) DC instructions given to pt, spouse and family member. WC to main lobby and discharged home to self care with family by POV. TAYLOR LAINEZ RN 06/17/2014 11:44 AM onver zahida Transaction, Provider Unknown - 06/17/2014 4:05 AM PST Nurse Progress Note by Niurka Brooke RN at 06/17/14 0405 Author: Niurka Brooke RN Service: (none) Author Type: Registered Nurse Filed: 06/17/14 0421 Date of Service: 06/17/14 0405 Status: Signed Matzo Forming Machine Operator: Niurka Brooke RN (Registered Nurse) All air removed from TR Band. Site cleansed with NS, no bleeding noted dressing applied. Pt tolerated well. Niurka Orta RN 06/17/2014 onver zahida Transaction, Provider Unknown - 06/16/2014 11:00 PM PST Nurse Progress Note by Niurka Brooke RN at 06/16/14 1680 Author: Niurka Brooke RN Service: (none) Author Type: Registered Nurse Filed: 06/16/142325 Date of Service: 06/16/142299 Status: Signed Matzo Forming Machine Operator: Niurka Brooke RN (Registered Nurse) 3ml removed from TR band. Bleeding noted at the site 3ml reinserted. Bruising noted at the site, bleeding stopped. Pt tolerated well. Niurka Orta RN 06/16/2014 onver zahida Transaction, Provider Unknown - 06/16/2014 6:38 PM PST Progress Notes by Shanique Dimas RPH at 06/16/141837 Author: Shanique Dimas RPH Service: (none) Author Type: Pharmacist Filed: 06/16/141837 Date of Service: 06/16/141837 Status: Signed Matzo Forming Machine Operator: Shanique Dimas RPH (Pharmacist) Renal Dosing Monitoring: Dena Rose 83 y.o. male Pharmacy dosing for renal function per Saleem Goldberg PA-C SCr 1.31, est. CrCl = 48 ml/min Plan per protocol: Medications dosed appropriately for current renal function. Pharmacy will continue monitoring patient for appropriate dosing per renal function. 06/16/2014 6:37 PM Pharmacist: Shanique Dimas docume nted in this encounter Miscellaneous Notes Plan of Care - Conversion Transaction, Provider Unknown - 06/17/2014 8:55 AM PST Plan of Care by Taylor Lainez RN at 06/17/14854 Author: Taylor Lainez RN Service: (none) Author Type: Registered Nurse Filed: 06/17/14854 Date of Service: 06/17/14854 Status: Signed Matzo Forming Machine Operator: Taylor Lainez RN (Registered Nurse) Problem: Knowledge Deficit Goal: Patient will remain free of falls: Low Risk (Rai 25-50) Outcome: Progressing Pt has no falls. Calls appropriately. Problem: At risk for injury Goal: Patient will remain free of injury (ABCS) Outcome: Progressing No injuries associated with falls. Problem: Pain Goal: Patient s pain/discomfort is manageable Assess and monitor patient s pain using appropriate pain scale. Collaborate with interdis ciplinary team and initiate plan and interventions as ordered. Re-assess patient s pain le dangelo approximately 1-2 hours after pain management intervention. Premedicate as needed. Outcome: Progressing Denies pain. Problem: Safety Goal: Patient will be injury free during hospitalization Assess and monitor vitals signs, neurological status including level of consciousness and o rientation. Assess patient s risk for falls and implement fall prevention plan of care and interventions per hospital policy. Ensure arm band on, uncluttered walking paths in room, adequate room lighting, call light a nd overbed table within reach, bed in low position, wheels locked, side rails up per policy, and non-skid footwear provided. Outcome: Progressing Safety equipment available at bedside. Problem: Daily Care Goal: Daily care needs are met Assess and monitor ability to perform self care and identify potential discharge needs. Outcome: Progressing Independent in ADLs Problem: Psychosocial Needs Goal: Demonstrates ability to cope with hospitalization/illness Assess and monitor patients ability to cope with his/her illness. Outcome: Progressing Adequate coping mechanisms demonstrated. Reports good support system. Goal: Collaborate with patient/family/caregiver to identify patient specific goals for this hospitalization Outcome: Progressing Pt is anxious to discharge and requests further information regarding his own discharge maritza del cid MD will be contacted. Comments: TAYLOR LAINEZ RN 06/17/2014 8:55 AM docume nted in this encounter Plan of Treatment +--------+---------+ + + + | Date | Type | Specialty | Care Team | Description | +--------+---------+ + + + | 02/01/ | Office | Cardiology | Jazlyn Almeida, | | | 2019 | Visit | | [address] | | | | | | [place] | | | | | | [address] | | | | | | | | +--------+---------+ + + + documented as of this encounter Procedures + +--------+ + + + | Procedure Name | Priori | Date/Time | Associated Diagnosis | Comments | | | ty | | | | + +--------+ + + + | ECG 12 LEAD | Routin | 06/17/2014 | | Results for this | | | e | 7:35 AM | | procedure are in the | | | | PST | | results section. | + +--------+ + + + | ECHO COMPLETE W | Routin | 06/17/2014 | | Results for this | | CONTRAST | e | 7:20 AM | | procedure are in the | | | | PST | | results section. | + +--------+ + + + | ECG 12 LEAD | Routin | 06/16/2014 | | Results for this | | | e | 6:43 PM | | procedure are in the | | | | PST | | results section. | + +--------+ + + + | ACTIVATED CLOTTING | Routin | 06/16/2014 | | Results for this | | TIME | e | 5:23 PM | | procedure are in the | | | | PST | | results section. | + +--------+ + + + | ACTIVATED CLOTTING | Routin | 06/16/2014 | | Results for this | | TIME | e | 4:54 PM | | procedure are in the | | | | PST | | results section. | + +--------+ + + + | EXTERNAL LAB: CBC | Routin | 06/16/2014 | | Results for this | | | e | 12:10 PM | | procedure are in the | | | | PST | | results section. | + +--------+ + + + | BASIC METABOLIC | Routin | 06/16/2014 | | Results for this | | PANEL | e | 12:10 PM | | procedure are in the | | | | PST | | results section. | + +--------+ + + + documented in this encounter Results ECG 12 lead (06/17/2014 7:35 AM PST) + + + + + + | Component | Value | Ref Range | Performed | Pathologist | | | | | At | Signature | + + + + + + | DIAGNOSIS: | Normal sinus rhythmLeft | | EXTERNAL | | | | ventricular hypertrophy | | LAB | | | | with QRS wideningLateral | | | | | | infarct , age | | | | | | undeterminedAbnormal | | | | | | ECGWhen compared with | | | | | | ECG of 16-JUN-2014 | | | | | | 18:43,Minimal criteria | | | | | | for Septal infarct are | | | | | | no longer | | | | | | PresentNonspecific T | | | | | | wave abnormality no | | | | | | longer evident in | | | | | | Anterior leadsConfirmed | | | | | | by Dexter Correa | | | | | | ([id number]) on 06/17/2014 | | | | | | 6:45:57 PM | | | | + + + + + + + + | Specimen | + + | | + + + + + | Narrative | Performed At | + + + | Historically converted procedure from [facility] Epic environment | EXTERNAL LAB | + + + + +---------+ + + | Performing | Address | City/State/Zipcode | Phone Number | | Organization | | | | + +---------+ + + | EXTERNAL LAB | | | | + +---------+ + + ECHO Complete w Contrast (06/17/2014 7:20 AM PST) + + | Specimen | + + | | + + + + + | Impressions | Performed At | + + + | 1. Overall left ventricular systolic function is normal with, an EF | | | between 60 - 65 %. 2. The diastolic filling pattern indicates | | | impaired relaxation consistent with mild dysfunction (Grade I). 3. | | | There is no evidence of pulmonary hypertension. 4. There is no | | | pericardial effusion. 5. Poor visualization. Definity was used to | | | opacify the left ventricular chamber and improve delineation of the | | | endocardial border. | | + + + + + + | Narrative | Performed At | + + + | Patient Name: DENA ROSE Date of : 1930 | | | Performing Physician: Arash Marrero MD | | | | | | INDICATIONS abnormal stress test CONCLUSIONS | | | 1. Overall left ventricular systolic function is normal | | | with, an EF between 60 - 65 %. 2. The diastolic filling pattern | | | indicates impaired relaxation consistent with mild dysfunction (Grade | | | I). 3. There is no evidence of pulmonary hypertension. 4. There is | | | no pericardial effusion. 5. Poor visualization. Definity was used to | | | opacify the left ventricular chamber and improve delineation of the | | | endocardial border. FINDINGS -------- ECG rhythm: Sinus rhythm. | | | Study: A 2-dimensional transthoracic echocardiogram with m-mode, | | | spectral and color flow Doppler was perfomed. Study: This was a | | | technically adequate study. Left Ventricle: Overall left ventricular | | | systolic function is normal with, an EF between 60 - 65 %. Left | | | Ventricle: The left ventricle cavity size is normal. Left Ventricle: | | | There is mild concentric left ventricular hypertrophy. Left | | | Ventricle: No regional wall motion abnormalities. Left Ventricle: The | | | diastolic filling pattern indicates impaired relaxation consistent | | | with mild dysfunction (Grade I). Right Ventricle: The right ventricle | | | is normal in size. Left Atrium: The left atrium is moderately | | | dilated. Right Atrium: The right atrial size is normal. Aortic | | | Valve: Aortic valve is trileaflet and is mildly thickened. Aortic | | | Valve: There is mild aortic valve sclerosis without stenosis. Aortic | | | Valve: There is no evidence of aortic regurgitation. Mitral Valve: | | | Eqdb-im-djmiqnsr mitral regurgitation is present. Mitral Valve: Mild | | | mitral annular calcification present. Mitral Valve: Mild thickening | | | of the mitral valve leaflets. Tricuspid Valve: The tricuspid valve | | | appears structurally normal. Tricuspid Valve: Mild tricuspid | | | regurgitation present. Tricuspid Valve: There is no evidence of | | | pulmonary hypertension. Tricuspid Valve: The right ventricular | | | systolic pressure (pulmonary artery systolic pressure), as measured by | | | Doppler, is 27.69mmHg. Pulmonic Valve: The pulmonic valve was not | | | well visualized. Pulmonic Valve: Mild pulmonic regurgitation. | | | Pericardium: There is no pericardial effusion. IVC/Hepatic Veins: The | | | IVC is normal size (1.5-2.5cm) and collapses >50% with sniff, | | | consistent with central venous pressures of 5-10mmHg. Pulmonary | | | Veins: The flow patterns, measured by Doppler, appear normal. | | | Contrast: Poor visualization. Definity was used to opacify the left | | | ventricular chamber and improve delineation of the endocardial border. | | | MEASUREMENTS Ao asc: 3.60 cm Ao Diam: 3.52 | | | cm IVC: 2.29 cm LA Diam: 4.24 cm LA Major: 5.01 cm | | | EDV(Teich): 108.50 ml IVSd: 1.09 cm LVIDd: 4.81 cm LVPWd: | | | 1.14 cm LVOT Diam: 2.00 cm %FS: 32.23 % EF(Teich): | | | 60.35 % ESV(Teich): 43.01 ml IVSs: 1.62 cm LVIDs: 3.26 cm | | | LVPWs: 1.25 cm SV(Teich): 65.49 ml RA Major: 4.68 cm | | | RVIDd: 3.04 cm LAESV(A-L): 62.55 ml LAESV Index (A-L): | | | 30.66 ml/m2 LAAs A2C: 18.95 cm2 LAESV A-L A2C: 59.84 ml LALs | | | A2C: 5.09 cm LAAs A4C: 19.81 cm2 LAESV A-L A4C: 63.99 ml | | | LALs A4C: 5.20 cm Ao Diam: 3.26 cm AV Cusp: 2.25 cm LA | | | Diam: 4.26 cm LA/Ao: 1.30 %FS: 32.31 % EDV(Teich): | | | 137.49 ml EF(Teich): 60.10 % ESV(Teich): 54.85 ml IVSd: | | | 0.84 cm IVSs: 1.23 cm LVIDd: 5.33 cm LVIDs: 3.61 cm | | | LVPWd: 1.04 cm LVPWs: 1.10 cm SV(Teich): 82.63 ml HR: | | | 64.22 BPM AV maxP.31 mmHg AV meanP.83 mmHg AV Vmax: | | | 1.44 m/s AV Vmean: 0.92 m/s AV VTI: 28.13 cm YAEL Vmax: | | | 2.60 cm2 YAEL (VTI): 3.00 cm2 LVCI Dopp: 2.59 l/minm2 LVCO | | | Dopp: 5.30 l/min HR: 62.59 BPM LVOT maxP.72 mmHg LVOT | | | meanP.04 mmHg LVSI Dopp: 41.50 ml/m2 LVSV Dopp: 84.67 | | | ml LVOT Vmax: 1.19 m/s LVOT Vmean: 0.83 m/s LVOT VTI: | | | 26.93 cm MCO: 470.58 ms MV A Dangelo: 1.04 m/s MV DecT: 218.21 | | | ms MV E Dangelo: 1.01 m/s MV E/A Ratio: 0.97 MV PHT: 50.30 ms | | | MVA By PHT: 4.37 cm2 MV A Dur: 138.40 ms IVRT: 117.64 ms | | | Lateral e': 0.07 m/s Lateral E/e': 13.23 P Vein A: 0.41 | | | m/s P Vein A Dur: 159.16 ms P Vein D: 0.36 m/s P Vein S/D | | | Ratio: 1.92 P Vein S: 0.70 m/s PAEDP: 11.00 mmHg PRend PG: | | | 6.00 mmHg PRend Vmax: 1.22 m/s HR: 63.75 BPM PV maxPG: | | | 2.75 mmHg PV meanP.63 mmHg PV Vmax: 0.82 m/s PV Vmean: | | | 0.61 m/s PV VTI: 19.78 cm RAP: 5 mmHg RVSP: 27.68 mmHg | | | TR maxP.68 mmHg TR Vmax: 2.36 m/s TV A Dangelo: 0.38 m/s | | | TV Dec Taney: 1.76 m/s2 TV Dec Time: 309.16 ms TV E Dangelo: | | | 0.54 m/s TV E/A Ratio: 1.41 Obstetrics Teacher: ELIAS Authenticated by: | | | Arash Marrero MD Report Date/Time: 06-17-2014 09:35:07 | | + + + + + | Procedure Note | + + | Gurpreet Ferreira Conversion - 01/08/2019 6:51 AM PDT Patient Name: Shivani ROSE of | | : 1930 Performing Physician: Arash Marrero | | INDICATIONS a | | bnormal stress test CONCLUSIONS 1. Overall left ventricular systolic function | | is normal with, an EF between 60 - 65 %.2. The diastolic filling pattern indicates | | impaired relaxation consistent with mild dysfunction (Grade I).3. There is no evidence | | of pulmonary hypertension.4. There is no pericardial effusion.5. Poor visualization. | | Definity was used to opacify the left ventricular chamber and improve delineation of the | | endocardial border. FINDINGS--------ECG rhythm: Sinus rhythm.Study: A 2-dimensional | | transthoracic echocardiogram with m-mode, spectral and color flow Doppler was | | perfomed.Study: This was a technically adequate study.Left Ventricle: Overall left | | ventricular systolic function is normal with, an EF between 60 - 65 %.Left Ventricle: | | The left ventricle cavity size is normal.Left Ventricle: There is mild concentric left | | ventricular hypertrophy.Left Ventricle: No regional wall motion abnormalities.Left | | Ventricle: The diastolic filling pattern indicates impaired relaxation consistent with | | mild dysfunction (Grade I).Right Ventricle: The right ventricle is normal in size.Left | | Atrium: The left atrium is moderately dilated.Right Atrium: The right atrial size is | | normal.Aortic Valve: Aortic valve is trileaflet and is mildly thickened.Aortic Valve: | | There is mild aortic valve sclerosis without stenosis.Aortic Valve: There is no evidence | | of aortic regurgitation.Mitral Valve: Pnun-pr-ogrrwcnx mitral regurgitation is | | present.Mitral Valve: Mild mitral annular calcification present.Mitral Valve: Mild | | thickening of the mitral valve leaflets.Tricuspid Valve: The tricuspid valve appears | | structurally normal.Tricuspid Valve: Mild tricuspid regurgitation present.Tricuspid | | Valve: There is no evidence of pulmonary hypertension.Tricuspid Valve: The right | | ventricular systolic pressure (pulmonary artery systolic pressure), as measured by | | Doppler, is 27.69mmHg.Pulmonic Valve: The pulmonic valve was not well | | visualized.Pulmonic Valve: Mild pulmonic regurgitation.Pericardium: There is no | | pericardial effusion.IVC/Hepatic Veins: The IVC is normal size (1.5-2.5cm) and collapses | | >50% with sniff, consistent with central venous pressures of 5-10mmHg.Pulmonary Veins: | | The flow patterns, measured by Doppler, appear normal.Contrast: Poor visualization. | | Definity was used to opacify the left ventricular chamber and improve delineation of the | | endocardial border. MEASUREMENTS Ao asc: 3.60 cmAo Diam: 3.52 cmIVC: | | 2.29 cmLA Diam: 4.24 cmLA Major: 5.01 cmEDV(Teich): 108.50 mlIVSd: 1.09 cmLVIDd: | | 4.81 cmLVPWd: 1.14 cmLVOT Diam: 2.00 cm%FS: 32.23 %EF(Teich): 60.35 | | %ESV(Teich): 43.01 mlIVSs: 1.62 cmLVIDs: 3.26 cmLVPWs: 1.25 cmSV(Teich): 65.49 | | mlRA Major: 4.68 cmRVIDd: 3.04 cmLAESV(A-L): 62.55 mlLAESV Index (A-L): 30.66 | | ml/m2LAAs A2C: 18.95 [id number] A-L A2C: 59.84 mlLALs A2C: 5.09 cmLAAs A4C: 19.81 | | [id number] A-L A4C: 63.99 mlLALs A4C: 5.20 cmAo Diam: 3.26 cmAV Cusp: 2.25 cmLA | | Diam: 4.26 cmLA/Ao: 1.30%FS: 32.31 %EDV(Teich): 137.49 mlEF(Teich): 60.10 | | %ESV(Teich): 54.85 mlIVSd: 0.84 cmIVSs: 1.23 cmLVIDd: 5.33 cmLVIDs: 3.61 | | cmLVPWd: 1.04 cmLVPWs: 1.10 cmSV(Teich): 82.63 mlHR: 64.22 BPMAV maxP.31 | | mmHgAV meanP.83 mmHgAV Vmax: 1.44 m/Toño Vmean: 0.92 m/Toño VTI: 28.13 cmAVA | | Vmax: 2.60 cm2AVA (VTI): 3.00 gt8VPQU Dopp: 2.59 l/ecci0RYWZ Dopp: 5.30 l/minHR: | | 62.59 BPMLVOT maxP.72 mmHgLVOT meanP.04 mmHgLVSI Dopp: 41.50 ml/m2LVSV | | Dopp: 84.67 mlLVOT Vmax: 1.19 m/sLVOT Vmean: 0.83 m/sLVOT VTI: 26.93 cmMCO: | | 470.58 msMV A Dangelo: 1.04 m/sMV DecT: 218.21 msMV E Dangelo: 1.01 m/sMV E/A Ratio: | | 0.97MV PHT: 50.30 msMVA By PHT: 4.37 cm2MV A Dur: 138.40 msIVRT: 117.64 | | msLateral e': 0.07 m/sLateral E/e': 13.23P Vein A: 0.41 m/sP Vein A Dur: 159.16 | | msP Vein D: 0.36 m/sP Vein S/D Ratio: 1.92P Vein S: 0.70 m/sPAEDP: 11.00 | | mmHgPRend P.00 mmHgPRend Vmax: 1.22 m/sHR: 63.75 BPMPV maxP.75 mmHgPV | | meanP.63 mmHgPV Vmax: 0.82 m/sPV Vmean: 0.61 m/sPV VTI: 19.78 cmRAP: 5 | | mmHgRVSP: 27.68 mmHgTR maxP.68 mmHgTR Vmax: 2.36 m/sTV A Dangelo: 0.38 m/sTV | | Dec Taney: 1.76 m/s2TV Dec Time: 309.16 msTV E Dangelo: 0.54 m/sTV E/A Ratio: 1.41 | | Obstetrics Teacher: Norbertoticated by: Arash Marrero MDRepandrew Date/Time: 06-17-2014 09:35:07 | | IMPRESSION: 1. Overall left ventricular systolic function is normal with, an EF between | | 60 - 65 %.2. The diastolic filling pattern indicates impaired relaxation consistent with | | mild dysfunction (Grade I).3. There is no evidence of pulmonary hypertension.4. There | | is no pericardial effusion.5. Poor visualization. Definity was used to opacify the left | | ventricular chamber and improve delineation of the endocardial border. | |LVIDd: 4.81 cm | |LVPWd: 1.14 cm | |LVOT Diam: 2.00 cm | |%FS: 32.23 % | |EF(Teich): 60.35 % | |ESV(Teich): 43.01 ml | |IVSs: 1.62 cm | |LVIDs: 3.26 cm | |LVPWs: 1.25 cm | |SV(Teich): 65.49 ml | |RA Major: 4.68 cm | |RVIDd: 3.04 cm | |LAESV(A-L): 62.55 ml | |LAESV Index (A-L): 30.66 ml/m2 | |LAAs A2C: 18.95 cm2 | |LAESV A-L A2C: 59.84 ml | |LALs A2C: 5.09 cm | |LAAs A4C: 19.81 cm2 | |LAESV A-L A4C: 63.99 ml | |LALs A4C: 5.20 cm | |Ao Diam: 3.26 cm | |AV Cusp: 2.25 cm | |LA Diam: 4.26 cm | |LA/Ao: 1.30 | |%FS: 32.31 % | |EDV(Teich): 137.49 ml | |EF(Teich): 60.10 % | |ESV(Teich): 54.85 ml | |IVSd: 0.84 cm | |IVSs: 1.23 cm | |LVIDd: 5.33 cm | |LVIDs: 3.61 cm | |LVPWd: 1.04 cm | |LVPWs: 1.10 cm | |SV(Teich): 82.63 ml | |HR: 64.22 BPM | |AV maxP.31 mmHg | |AV meanP.83 mmHg | |AV Vmax: 1.44 m/s | |AV Vmean: 0.92 m/s | |AV VTI: 28.13 cm | |YAEL Vmax: 2.60 cm2 | |YAEL (VTI): 3.00 cm2 | |LVCI Dopp: 2.59 l/minm2 | |LVCO Dopp: 5.30 l/min | |HR: 62.59 BPM | |LVOT maxP.72 mmHg | |LVOT meanP.04 mmHg | |LVSI Dopp: 41.50 ml/m2 | |LVSV Dopp: 84.67 ml | |LVOT Vmax: 1.19 m/s | |LVOT Vmean: 0.83 m/s | |LVOT VTI: 26.93 cm | |MCO: 470.58 ms | |MV A Dangelo: 1.04 m/s | |MV DecT: 218.21 ms | |MV E Dangelo: 1.01 m/s | |MV E/A Ratio: 0.97 | |MV PHT: 50.30 ms | |MVA By PHT: 4.37 cm2 | |MV A Dur: 138.40 ms | |IVRT: 117.64 ms | |Lateral e': 0.07 m/s | |Lateral E/e': 13.23 | |P Vein A: 0.41 m/s | |P Vein A Dur: 159.16 ms | |P Vein D: 0.36 m/s | |P Vein S/D Ratio: 1.92 | |P Vein S: 0.70 m/s | |PAEDP: 11.00 mmHg | |PRend P.00 mmHg | |PRend Vmax: 1.22 m/s | |HR: 63.75 BPM | |PV maxP.75 mmHg | |PV meanP.63 mmHg | |PV Vmax: 0.82 m/s | |PV Vmean: 0.61 m/s | |PV VTI: 19.78 cm | |RAP: 5 mmHg | |RVSP: 27.68 mmHg | |TR maxP.68 mmHg | |TR Vmax: 2.36 m/s | |TV A Dangelo: 0.38 m/s | |TV Dec Taney: 1.76 m/s2 | |TV Dec Time: 309.16 ms | |TV E Dangelo: 0.54 m/s | |TV E/A Ratio: 1.41 | | | |Obstetrics Teacher: ELIAS | |Authenticated by: Arash Marrero MD | |Report Date/Time: 06-17-2014 09:35:07 | | | |IMPRESSION: | |1. Overall left ventricular systolic function is normal with, an EF between 60 - 65 %. | |2. The diastolic filling pattern indicates impaired relaxation consistent with mild dysfunc tion (Grade I). | |3. There is no evidence of pulmonary hypertension. | |4. There is no pericardial effusion. | |5. Poor visualization. Definity was used to opacify the left ventricular chamber and improv e delineation of the endocardial border. | + + ECG 12 lead (06/16/2014 6:43 PM PST) + + + + + + | Component | Value | Ref Range | Performed | Pathologist | | | | | At | Signature | + + + + + + | DIAGNOSIS: | Normal sinus rhythmLeft | | EXTERNAL | | | | ventricular hypertrophy | | LAB | | | | with QRS widening and | | | | | | repolarization | | | | | | abnormalityCannot rule | | | | | | out Septal infarct , age | | | | | | undeterminedLateral | | | | | | infarctAbnormal ECGNo | | | | | | previous ECGs | | | | | | availableConfirmed by | | | | | | Dexter Correa ([id number]) | | | | | | on 06/16/2014 7:25:53 PM | | | | + + + + + + + + | Specimen | + + | | + + + + + | Narrative | Performed At | + + + | Historically converted procedure from [facility] environment | EXTERNAL LAB | + + + + +---------+ + + | Performing | Address | City/State/Zipcode | Phone Number | | Organization | | | | + +---------+ + + | EXTERNAL LAB | | | | + +---------+ + + Activated clotting time (06/16/2014 5:23 PM PST) + + + + + + | Component | Value | Ref Range | Performed | Pathologist | | | | | At | Signature | + + + + + + | Activated | 276 (H)Comment: Testing | 74 - 137 | EXTERNAL | | | Clotting | performed at [facility];888 | seconds | LAB | | | time, POC | [address];[place] | | | | | | [address] | | | | + + + + + + + + | Specimen | + + | | + + + +---------+ + + | Performing | Address | City/State/Zipcode | Phone Number | | Organization | | | | + +---------+ + + | EXTERNAL LAB | | | | + +---------+ + + Activated clotting time (06/16/2014 4:54 PM PST) + + + + + + | Component | Value | Ref Range | Performed | Pathologist | | | | | At | Signature | + + + + + + | Activated | 177 (H)Comment: Testing | 74 - 137 | EXTERNAL | | | Clotting | performed at [facility];888 | seconds | LAB | | | time, POC | [address];[place] | | | | | | [address] | | | | + + + + + + + + | Specimen | + + | | + + + +---------+ + + | Performing | Address | City/State/Zipcode | Phone Number | | Organization | | | | + +---------+ + + | EXTERNAL LAB | | | | + +---------+ + + External Lab: [facility] (06/16/2014 12:10 PM PST) + + + + + + | Component | Value | Ref Range | Performed | Pathologist | | | | | At | Signature | + + + + + + | WBC | 3.7 (L)Comment: Testing | 3.8 - 11.0 K/uL | EXTERNAL | | | | performed at [facility];[address] | | LAB | | | | [address];[place], [place] | | | | | | [address] | | | | + + + + + + | Non- | 3.19 (L)Comment: Testing | 4.20 - 5.70 | EXTERNAL | | | Red Blood | performed at [facility];888 | M/uL | LAB | | | Cells | [address];[place] | | | | | Counted | [address] | | | | + + + + + + | Hemoglobin | 10.0 (L)Comment: Testing | 13.2 - 17.0 | EXTERNAL | | | | performed at [facility];888 | g/dL | LAB | | | | [address];[place] | | | | | | [address] | | | | + + + + + + | Hematocrit, | 30.0 (L)Comment: Testing | 39.0 - 50.0 % | EXTERNAL | | | POC | performed at [facility];[address] | | LAB | | | | [address];[place] | | | | | | [address] | | | | + + + + + + | MCV | 93.9Comment: Testing | 80.0 - 100.0 fl | EXTERNAL | | | | performed at [facility];[address] | | LAB | | | | [address];[place] | | | | | | [address] | | | | + + + + + + | MCH | 31.5Comment: Testing | 27.0 - 34.0 pg | EXTERNAL | | | | performed at [facility];[address] | | LAB | | | | [address];[place] | | | | | | [address] | | | | + + + + + + | MCHC | 33.5Comment: Testing | 32.0 - 35.5 | EXTERNAL | | | | performed at [facility];888 | g/dL | LAB | | | | [address];[place] | | | | | | [address] | | | | + + + + + + | RDW-CV | 63.4 (H)Comment: Testing | 37 - 53 fl | EXTERNAL | | | | performed at [facility];888 | | LAB | | | | [address];[place] | | | | | | [address] | | | | + + + + + + | Platelet | 177Comment: Testing | 150 - 400 K/uL | EXTERNAL | | | Count | performed at [facility];888 | | LAB | | | Plasma | [address];[place] | | | | | | [address] | | | | + + + + + + | MPV | 6.9Comment: Testing | fl | EXTERNAL | | | | performed at [facility];[address] | | LAB | | | | [address];[place] | | | | | | [address] | | | | + + + + + + | Differentia | AUTOMATEDComment: | | EXTERNAL | | | l Type | Testing performed at | | LAB | | | | [facility];[address] | | | | | | [address];[place] [address] | | | | + + + + + + | % Segmented | 62.9Comment: Testing | % | EXTERNAL | | | | performed at [facility];888 | | LAB | | | Neutrophils | [address];[place] | | | | | | [address] | | | | + + + + + + | % | 25.7Comment: Testing | % | EXTERNAL | | | Lymphocytes | performed at [facility];[address] | | LAB | | | | [address];[place] | | | | | | [address] | | | | + + + + + + | % Monocytes | 8.8Comment: Testing | % | EXTERNAL | | | | performed at [facility];[address] | | LAB | | | | [address];[place] | | | | | | [address] | | | | + + + + + + | % | 1.8Comment: Testing | % | EXTERNAL | | | Eosinophils | performed at [facility];[address] | | LAB | | | | [address];[place] | | | | | | [address] | | | | + + + + + + | % Basophils | 0.8Comment: Testing | % | EXTERNAL | | | | performed at [facility];[address] | | LAB | | | | [address];[place] | | | | | | [address] | | | | + + + + + + | Absolute | 2.3Comment: Testing | 1.9 - 7.4 K/uL | EXTERNAL | | | Segmented | performed at [facility];[address] | | LAB | | | Neutrophils | [address];[place] | | | | | | [address] | | | | + + + + + + | Absolute | 0.9 (L)Comment: Testing | 1.0 - 3.9 K/uL | EXTERNAL | | | Lymphocytes | performed at [facility];[address] | | LAB | | | | [address];[place] | | | | | | [address] | | | | + + + + + + | Absolute | 0.3Comment: Testing | 0 - 0.8 K/uL | EXTERNAL | | | Monocytes | performed at [facility];[address] | | LAB | | | | [address];[place] | | | | | | [address] | | | | + + + + + + | Absolute | 0.1Comment: Testing | 0 - 0.5 K/uL | EXTERNAL | | | Eosinophils | performed at [facility];[address] | | LAB | | | | [address];[place] | | | | | | [address] | | | | + + + + + + | Absolute | 0.0Comment: Testing | 0 - 0.1 K/uL | EXTERNAL | | | Basophils | performed at [facility];[address] | | LAB | | | | [address];[place] | | | | | | [address] | | | | + + + + + + | RBC | 1+Comment: | | EXTERNAL | | | Morphology | ANISO1+MICROTesting | | LAB | | | | performed at [facility];[address] | | | | | | [facility];[place], [place] | | | | | | [address] | | | | | |Testing performed at [facility];[address] [facility];[place] [address] | | | | | | | | | | + + + + + + + + | Specimen | + + | Blood specimen | | (specimen) | + + + +---------+ + + | Performing | Address | City/State/Zipcode | Phone Number | | Organization | | | | + +---------+ + + | EXTERNAL LAB | | | | + +---------+ + + Basic Metabolic Panel (06/16/2014 12:10 PM PST) + + + + + + | Component | Value | Ref Range | Performed | Pathologist | | | | | At | Signature | + + + + + + | Na | 140Comment: Testing | 135 - 143 | EXTERNAL | | | | performed at [facility];[address] | mmol/L | LAB | | | | [address];[place], [place] | | | | | | [address] | | | | + + + + + + | K | 4.0Comment: Testing | 3.5 - 4.9 | EXTERNAL | | | | performed at [facility];[address] | mmol/L | LAB | | | | [address];[place] | | | | | | [address] | | | | + + + + + + | Cl | 108Comment: Testing | 99 - 109 mmol/L | EXTERNAL | | | | performed at [facility];[address] | | LAB | | | | [address];[place] | | | | | | [address] | | | | + + + + + + | CO2 | 26Comment: Testing | 23 - 32 mmol/L | EXTERNAL | | | | performed at [facility];[address] | | LAB | | | | [address];[place] | | | | | | [address] | | | | + + + + + + | Anion Gap | 11Comment: Testing | 5 - 20 mmol/L | EXTERNAL | | | | performed at [facility];[address] | | LAB | | | | [address];[place] | | | | | | [address] | | | | + + + + + + | Glucose, | 89Comment: Testing | 65 - 99 mg/dL | EXTERNAL | | | Fasting | performed at [facility];[address] | | LAB | | | | [address];[place] | | | | | | [address] | | | | + + + + + + | BUN | 24Comment: Testing | 8 - 25 mg/dL | EXTERNAL | | | | performed at [facility];[address] | | LAB | | | | [address];[place] | | | | | | [address] | | | | + + + + + + | Creatinine | 1.31 (H)Comment: Testing | 0.70 - 1.30 | EXTERNAL | | | | performed at [facility];[address] | mg/dL | LAB | | | | [address];[place] | | | | | | [address] | | | | + + + + + + | BUN/Creatin | 18Comment: Testing | | EXTERNAL | | | ine Ratio | performed at [facility];[address] | | LAB | | | | [address];[place] | | | | | | [address] | | | | + + + + + + | Calcium | 8.8Comment: NOTE NEW | 8.5 - 10.5 | EXTERNAL | | | | REFERENCE RANGETesting | mg/dL | LAB | | | | performed at [facility];[address] | | | | | | [address];[place] | | | | | | [address] | | | | + + + + + + | Estimated | 56 (L)Comment: GFR <60: | mL/min/1.73m2 | EXTERNAL | | | GFR | CHRONIC KIDNEY DISEASE, | | LAB | | | | IF FOUND OVER A 3 MONTH | | | | | | PERIOD.GFR <15: KIDNEY | | | | | | FAILURE.FOR | | | | | | AMERICANS, MULTIPLY THE | | | | | | CALCULATED GFR BY | | | | | | 1.210.Testing performed | | | | | | at [facility];[address] [facility] | | | | | | [address];[place] [address] | | | | + + + + + + + + | Specimen | + + | Blood specimen | | (specimen) | + + + +---------+ + + | Performing | Address | City/State/Zipcode | Phone Number | | Organization | | | | + +---------+ + + | EXTERNAL LAB | | | | + +---------+ + + documented in this encounter Visit Diagnoses Not on filedocumented in this encounter
--- OUTSIDE RECORDS SUMMARY | ~2019-12-09 | XMS | Encounter Summary ---
Demographics + + + | Address | [address] | | | [place] [address] | + + + | Home Phone | | + + + | Preferred Language | Unknown | + + + | Marital Status | | + + + | Sabianism Affiliation | 1041 | + + + | Race | Unknown | + + + | Ethnic Group | Unknown | + + + Author + + + | Author | [facility] | | | and [place] | + + + | Organization | [facility] | | | and [place] | + + + | Address | Unknown | + + + | Phone | Unavailable | + + + Support + + + + + | Name | Relationship | Address | Phone | + + + + + | Lesia Castaneda | ECON | [address] | | | | | [place] [address] | | + + + + + | Rosina Castaneda | ECON | Unknown | | + + + + + | Sandy Zamora | ECON | [address] | | | | | [place] | | | | | [address] | | + + + + + Care Team Providers + +------+ + | Care Tree And Shrub Worker Name | Role | Phone | + +------+ + | Sergio Thompson MD | PCP | | + +------+ + Encounter Details +--------+ + + + + | Date | Type | Department | Care Team | Description | +--------+ + + + + | 11/21/ | Hospital | [facility] | Rachel Pineda PT | | | 2016 | Encounter | MED CTR ACUTE | | | | | | PHYSICAL THERAPY | | | | | | [address] | | | | | | [place] [address] | | | | | | [phone] | | | +--------+ + + + [...] [place] | | | | | | [id number] | | | | | | | | +--------+---------+ + + + documented as of this encounter Visit Diagnoses Not on filedocumented in this encounter"
--- OUTSIDE RECORDS SUMMARY | ~2019-12-09 | XMS | Encounter Summary ---
Demographics + + + | Address | [address] | | | [place] [address] | + + + | Home Phone | | + + + | Preferred Language | Unknown | + + + | Marital Status | | + + + | Jehovah'S Witness Affiliation | 1041 | + + + [...] + | Lesia Castaneda | ECON | [address] | | | | | [place] [address] | | + + + + + | Rosina Castaneda | ECON | Unknown | | + + + + + | Sandy Zamora | ECON | [address] | | | | | [place] | | | | | [address] | | + + + + + Care Team Providers + +------+ + | Care Liner Checker Name | Role | Phone | + +------+ + PCP | Unavailable | + +------+ + Encounter Details +--------+ + + + + | Date | Type | Department | Care Team | Description | +--------+ + + + + | 04/27/ | Hospital | [facility] | | | | 2008 - | Encounter | MED CTR CANCER | | | | | | CENTER [address] | | | | 05/25/ | | [place] | | | | 2008 | | [address] | | | | | | [phone] | | | +--------+ + + + [...] | | | | | [address] [place], [place] | | | | | | [address] | | | | | | | | +--------+---------+ + + + documented as of this encounter Visit Diagnoses Not on filedocumented in this encounter"
--- OUTSIDE RECORDS SUMMARY | ~2019-12-09 | XMS | Encounter Summary ---
Demographics + + + | Address | [address] | | | [place] [address] | + + + | Home Phone [...] + | Lesia Castaneda | ECON | [address] | | | | | [place] [address] | | + + + + + | Rosina Castaneda | ECON | Unknown | | + + + + + | Sandy Zamora | ECON | [address] | | | | [place] | | | | | [address] | | + + + + + Care Team Providers + +------+ + | Care Emergency Crew Supervisor Name | Role | Phone | + +------+ + | Jerome Ray | PCP | | | MD | | | + +------+ + Reason for Visit + +--------+ + | Reason | Onset | Comments | | | Date | | + +--------+ + | Medication Question | 06/18/ | Plavix | | | 2019 | | + +--------+ + Encounter Details +--------+ + + + + | Date | Type | Department | Care Team | Description | +--------+ + + + + | 06/18/ | Telephone | [facility] | Sun Jernigan, | Medication Question | | 2019 | | CARDIOLOGY TEZ | Cellophane Worker | (Plavix) | | | | [address] | | | | | | [facility] [facility] [place] | | | | | | [address] | | | | | | [phone] | | | +--------+ + + + [...] this encounter Miscellaneous Notes Telephone Encounter - Sun Jernigan Medical Assistant - 06/18/2019 11:57 AM PSTCalled V A to inform. Left voicemail, contact information given. LUIZ Flor elep sandra Encounter - Sun Jernigan Medical Assistant - 06/18/2019 11:55 AM PST----- Message from Jazlyn Almeida MD sent at 06/18/2019 10:24 AM PST ----- Contact: Yes he can stop clopidogrel. ----- Message ----- From: Nell Flor Sent: 06/17/2019 4:40 PM PST To: Jazlyn Almeida MD Received a call from [facility] regarding patients plavix. They want to confirm he is no longer on plavix and supposed to stay off plavix. Please advise. dosergio ented in this encounter Plan of Treatment +--------+---------+ + + + | Date | Type | Specialty | Care Team | Description | +--------+---------+ + + + | 02/01/ | Office | Cardiology | Jazlyn Almeida, | | | 2019 | Visit | | MD [address] | | | | | | [place] | | | | | | [address] | | | | | | | | +--------+---------+ + + + documented as of this encounter Visit Diagnoses Not on filedocumented in this encounter"
--- OUTSIDE RECORDS SUMMARY | ~2019-12-09 | XMS | Encounter Summary ---
Demographics + + + | Address | [address] | | | [place] [address] | + + + | Home Phone | | + + + | Preferred Language | Unknown | + + + | Marital Status | | + + + | Moravian Affiliation | 1041 | + + + | Race | Unknown | + + + | Ethnic Group | Unknown | + + + Author + + + | Author | [facility] | | | and [place] | + + + | Organization | [facility] | | | and [place] | + + + | Address | Unknown | + + + | Phone | Unavailable | + + + Support + + + + + | Name | Relationship | Address | Phone | + + + + + | Lesia Castaneda | ECON | [address] | | | | | [place] [address] | | + + + + + | Rosina Castaneda | ECON | Unknown | | + + + + + | Sandy Zamora | ECON | [address] | | | | [place] | | | | | [address] | | + + + + + Care Team Providers + +------+ + | Care Senior Regulatory Affairs Specialist Name | Role | Phone | + +------+ + | Jerome Ray | PCP | | | MD | | | + +------+ + Encounter Details +--------+ + + + + | Date | Type | Department | Care Team | Description | +--------+ + + + + | 11/16/ | Hospital | [facility] | | | | 2012 - | Encounter | MED CTR CANCER | | | | | | [address] [place] | | | | 11/22/ | | [place] | | | | 2012 | | [address] | | | | | | [phone] | | | +--------+ + + + [...] [place] | | | | | | [address] | | | | | | | | +--------+---------+ + + + documented as of this encounter Visit Diagnoses Not on filedocumented in this encounter"
--- OUTSIDE RECORDS SUMMARY | ~2019-12-09 | XMS | Encounter Summary ---
Demographics + + + | Address | [address] | | | [place] [address] | + + + | Home Phone | | + + + | Preferred Language | Unknown | + + + | Marital Status | | + + + | Latter Day Affiliation | 1041 | + + + | Race | Unknown | + + + | Ethnic Group | Unknown | + + + Author + + + | Author | [facility] | | | and [place] | + + + | Organization | [facility] | | | and [place] | + + + | Address | Unknown | + + + | Phone | Unavailable | + + + Support + + + + + | Name | Relationship | Address | Phone | + + + + + | Lesia Castaneda | ECON | [address] | | | | | [place] [address] | | + + + + + | Rosina Castaneda | ECON | Unknown | | + + + + + | Sandy Zamora | ECON | [address] | | | | [place] | | | | | [address] | | + + + + + Care Team Providers + +------+ + | Care Computer Operator Name | Role | Phone | + +------+ + | Jerome Rya | PCP | | | MD | [...] | | | | prosthetic | | [address] | | | | | joint, | | Phone: | | | | | initial | | [phone] | | | | | encounter | | Fax: | | | | | ([facility]) | | [phone] | | | | | Procedures | | | | | | | IN CONV PREV | | | | | [...] Description | +--------+---------+ + + + | 07/13/ | Surgery | [facility] | Maxi Zamora MD | Revision right total | | 2019 | | MED CTR OR [facility] | [address] | hip arthroplasty | | | | [address] | [place] | | | | | [place] | [address] | | | | | [address] | [phone] | | | | | [phone] | | | +--------+---------+ + + + [...] + + + | Blood Pressure | 135/64 | 07/13/2019 12:10 PM | | | | | PST | | + + + + + | Pulse | 60 | 07/13/2019 12:10 PM | | | | | PST | | + + + + + | Temperature | 36.6 C (97.9 F) | 07/13/2019 12:10 PM | | | | | PST | | + + + + + | Respiratory Rate | 18 | 07/13/2019 12:10 PM | | | | | PST | | + + + + + | Oxygen Saturation | 98% | 07/13/2019 12:10 PM | | | | | PST | | + + + + + | Inhaled Oxygen | - | - | | | Concentration | | | | + + + + + | Weight | 78.5 kg (173 lb 1 | 07/13/2019 12:10 PM | | | | oz) | PST | | + + + + + | Height | 185.4 cm (6' 1") | 07/13/2019 12:10 PM | | | | | PST | | + + + + + | Body Mass Index | 22.83 | 07/13/2019 12:10 PM | | | | | PST | | + + + + + documented in this encounter Discharge Summaries Maxi Zamora MD - 07/16/2019 8:24 AM PST TOTAL HIP ARTHROPLASTY DISCHARGE SUMMARY ADMISSION DATE: 07/13/2019 DISCHARGE DATE: 07/16/2019 ADMITTING DIAGNOSIS: Failed right hip hemiarthroplasty. DISCHARGE DIAGNOSIS: Failed right hip hemiarthroplasty. Urinary retention. Acute on chronic anemia. MAJOR INTERVENTION: Revision of right hip hemiarthroplasty to right total hip arthroplasty. 2 unit allogeneic blood transfusion. DISCHARGE DISPOSITION: The patient is being discharged to home and will do home-directed ex ercises on an outpatient basis. The patient will practice hip dislocation precautions and wi ll keep the incision clean and dry beneath the Aquacel bandage. Weight-bearing is as tolerat ed with a walker. A follow-up appointment has been made in my office in 5-7 days for a wound check, staple removal and radiographs. He will follow up with Dr. Hatfield for management of his sherman catheter. DISCHARGE MEDICATIONS The patient will resume his usual medications. In addition,he will take: Septra DS one tablet twice daily Aspirin 81 mg twice daily. Tylenol as needed for pain. HOSPITAL COURSE: The patient was admitted and taken to the operating room, at which time, foreign sher underwent a revision of his hemiarthroplasty to right total hip arthroplasty without compl ications. For further details, please see the dictated operative report in the chart. Postoperatively, the patient did well, remaining afebrile, with stable vital signs and with an intact neurovascular examination in his right lower limb. The patient received Ancef preoperatively and for 24 hours postoperatively, and had no sign s or symptoms of infection. The patient had no wound issues and the incision was without sandee thema or drainage at the time of his discharge with an Aquacel bandage in place. The patient was started on aspirin 325 mg twice daily starting the morning after surgery. There was no evidence of thromboembolic disease. Hematocrit stabilized at Lab Results Component Value Date HCT 26.0 (L) 07/16/2019 following a 2 unit PRBC blood transfusion. He was unable to void following surgery and since multiple attempts at sherman catheter inser tion both intra-op and post-op were unsuccessful, Dr. Hatfield was called. He inserted a ur inary catheter and recommended that it be left in place for 1 week. The patient was seen by physical therapy and allowed weightbearing as tolerated with a walk er, progressing very well with his mobility. The patient was ready for discharge home on po stop day number three. d ocumented in this encounter Discharge Instructions Instructions Marla Hardwick, PharmD - 07/12/2019 Your post op appointment is scheduled for 07/22/2019 at 2:15 pm. Please check in a t 1:45 pm for X-rays at the [facility]. D ischarge Instructions for Hip Replacement Surgery You had a hip replacement surgery. This means your natural hip was replaced with an artific ial joint (prosthesis). You may be recovering at home or in a rehabilitation facility. Eithe r way, you must take care of your new hip. Do this by moving and sitting the way you were ta ught in the hospital. Also, be sure to see your doctor for follow-up visits, and return to a ctivity slowly. Because a total hip replacement is major surgery, it will be a few months be fore you can move comfortably. Home Care Take your medications exactly as directed on the separate Medication Reconciliation shee t. Typically, you will resume your routine medications and in addition will take aspirin 81 mg twice daily for FOUR weeks to prevent blood clots and a pain pill. Please purchase the 8 1mg aspirin at your pharmacy. If you need to, you may take the occasional ibuprofen, motri n, aleve, naproxen, or advil unless you have stomach problems, kidney problems or have other phelps been told to avoid NSAIDs. Tylenol (acetaminophen) and your pain pill are safe to take . Don t drive until your doctor says it s okay. And never drive while taking narcotic pain medication. Wear the support stockings you were given in the hospital. Wear them for 6 weeks post-op eratively To relieve discomfort at night, get up and move around as needed Incision Care A waterproof (Aquacel) dressing has been applied. It is OK to shower with this in place. NO tub soaks. Leave this Aquacel dressing in place until your first post-op visit unless it becomes wet or visibly soiled. Avoid infection by washing your hands often. If an infection occurs, it will need to be treated immediately. So call your doctor right away if you think you may have an infection. Symptoms include a fever or an incision that leaks white, green, or yellow fluid. Avoid soaking your incision in water (no hot tubs, bathtubs, swimming pools) until your doctor says it s okay. Sitting and Sleeping It is ok to sleep on your side, just remember to place a pillow between your knees Moving Safely Use a walker for 4 weeks. And remember to ask for help from others when you need it. Follow the posterior hip precautions You may put as much weight as is comfortable on the affected leg unless you have been to ld otherwise. Walk often and do the prescribed exercises as instructed. Arrange your household to keep the items you need within reach. Remove electrical cords, throw rugs, and anything else that may cause you to fall. Use nonslip bath mats, grab bars, an elevated toilet seat, and a shower chair in your ba throom. Follow-Up Make sure you keep the follow-up appointment scheduled about 10 days from your surgery cherie e. You may confirm the appointment date and time by calling [phone] extension [phone] When to Seek Medical Attention Call 911 right away if you have any of the following: Chest pain Shortness of breath Otherwise, call your doctor immediately if you have any of the following: Increased hip pain Pain or swelling in your calf or leg Fever above 100.4F or shaking chills Excessive swelling, increased drainage or redness around the incision Swelling, tenderness, or cramps in your leg Medication Instructions: Do not exceed 4,000 mg of acetaminophen (Tylenol) per day. Hydrocodone-acetaminophen ([place] ) and Oxycodone-acetaminophen (Percocet) have 325 mg acetaminophen per tablet. Regular stre ngth acetaminophen is 325 mg per tablet. Extra strength has 500 mg per tablet. While you are taking the blood thinner (aspirin 81 mg twice daily), please do not take any NSAIDs (additional aspirin, ibuprofen, naproxen, Motrin, Advil, Aleve, etc.) These can incr ease your risk of bleeding. Watch for signs of bleeding: Easy bruising Bleeding from the gums Vomiting something that looks like coffee grounds Dark tarry stool Call the doctor if you experience any of these. Watch for signs of blood clots: DVT: hard, hot, hurt, red in back of calf PE or AL: sudden chest pain or trouble breathing Stroke: trouble thinking or weakness on one side of body Call 911 if you experience any of these symptoms. Do not consume alcohol while taking prescription pain medications. For constipation: While you are taking opioid pain medications (hydrocodone and/or oxycodone), continue to ta ke docusate (Colace) and senna (Senokot) twice daily. This will both help you have a bowel movement and help the stool stay soft and ontd-yq-nnxe. Remember to drink plenty of fluids and eat fiber-containing foods. If you do not have a bowel movement within two days of returning home, add milk of magnesia 30 mL once each night and/or Miralax one capful (17 grams) dissolved in half a cup of water once daily for 3 days. These are available mswy-sja-selcmvw at any drugstore. If you are still constipated 3 days after discharge, add a one-time bisacodyl (Dulcolax) farrell ppository or an enema. If these do not work, contact the surgeon's office. [facility] Patient Opioid Handout for Acute or Perioperative Pain Opioid analgesics should only be taken as directed since misuse or diversion of these produ cts can be illegal, extremely harmful and even deadly. Prescription Opioids (such as hydro codone, oxycodone, hydromorphone, MS contin) are strong prescription pain medications and ar e often necessary following surgery. They can be an important part of treatment, but also c ome with serious risks. Anyone taking an opioid is vulnerable to the following risks. Major Risks: Addiction, Overdose and . Other Serious Risks & Side Effects include: ; Constipation, Nausea, Vomiting, Dry Mouth, Itching, Sweating, Sleepiness, Dizziness, Conf usion, Depression, as well as Low Testosterone resulting in low sex drive, energy and streng th. ; Tolerance meaning you need more of the medication for the same relief but also have h igher side effects ; Physical dependence withdrawal symptoms occur when the medication is stopped diff erent from addiction You are at a higher risk if ANY of the following apply to you: Sleep apnea, Age > 65, , Mental health problems including Anxiety & Depression, &a mp; History of Misuse. Certain medications also increase your risks of overdose and , including benzodiazepin es, muscle relaxers, & hypnotics. Avoid these when possible. If you think you may be on on e of these medications, talk with your pharmacist when filling your pain prescription. Roxane peralta go to the same pharmacy when possible. Opioid Instructions: ; Do not drink alcohol while taking opioids ; Do not drive while taking opioids ; Do not take opioids in greater amounts or more often than prescribed ; Do not take unless truly needed As your pain improves, consider alternative modalities including: Over the counter medicati ons as advised by your provider, ice and/or heat as appropriate, Cognitive Behavior Therapy, Massage Therapy, Physical Therapy, & other disciplines. Overdose: occurs when too much of the drug overwhelms the brain's drive to breathe. Recognize the signs and symptoms: small pinpoint pupils, overly sleepy or difficult t o arouse from sleep, slow and shallow breathing, choking or gurgling sounds, limpness, pale blue or cold skin. Should any of these occur, call 911 for immediate assistance. Lay the person on their side to prevent choking. Stay with the person until help arrives. If the person is sleepy, but arouses easily and communicates clearly, immediately discontinue the medication and call th e prescribing provider to discuss a change in medication, dose and/or frequency. Continue t o monitor for worsening symptoms. If you think you're struggling with addiction call our office and [facility]'s National Helpl[employer] ne at [phone]-AFAZ. Secure Storage Prescriptions should be stored out of reach of children and pets, in a safe place, preferab ly locked to prevent other family members and visitors from taking them. If opioids are i ngested by others for whom they are not prescribed, these individuals might experience overd ose at the same dose or even at a lower dosage than what was prescribed for the patient. Do not share or sell prescribed medications. Resources for proper disposal of unused opioids: Returns: The preferred option is the twice yearly local take back program administe red by the [employer]. Other preferred options include medication drop box at a police station if a vailable, [employer]-authorized collection site or pharmacy secure drop-box program if available. ; Take Back Program: https://www.[employer]uctelia.[employer].gov/drug_disposal/takeback/ National P rescription Drug Take Back Day: twice yearly in February and August ; To find an authorized local ux information architect contact the [facility] Office of Diversion Control s Reg istration Call Center at ; Call your local pharmacy for recommendations. ; Search for a drug disposal location near you on the [employer] diversion control division search engine: https://apps.Auctelia.[employer].gov/pubdispsearch/spring/main?execution=e1s1 At the time of printing: [employer] in [place], [employer] in [place], [employer] in [place] How to Dispose of Medicines at Home: Taken from the FDA guide How to Dispose of Unused Medicines https://www.fda.gov/ForConsumers/ConsumerUpdates/ycl804796.htm Disposing medicines in household trash: Almost all medicines can be thrown into your househ old trash. These include prescription drugs in pills, liquids, patches, creams, and inhalers . Follow these steps: 1. Remove the drugs from their original containers and mix them with something undesirable, such as used coffee grounds, dirt, or cat litter. This makes the medicine less appealing to children and pets and unrecognizable to someone who might intentionally go through the tras h looking for drugs. 2. Put the mixture in something you can close (a zipper storage bag, empty can, or other co ntainer) to prevent the drug from leaking or spilling out. 3. Throw the container in the garbage. 4. Scratch out all your personal information on the empty medicine packaging to protect you r identity and privacy. Throw the packaging away. 5. OR - keep in the original container, scratch out identifiers, add water and an undesira ble as listed above, close and seal with duct tape, and hide inside another piece of garbage . Flushing medicines: We do not recommend flushing opioids. *Local governments have the nora jackson say in flushing disposal, please consult local laws and regulations first.* Resources: Diversion Control Division of the [employer], [place] Food and Drug Administration, AMA, CDC AttachmentsThe following attachments cannot be sent through Care Everywhere.Sulfamethoxazol e; Trimethoprim, SMX-TMP tablets (Tristanian)documented in this encounter Medications at Time of [...] documented as of this encounter Progress Notes Marla Hardwick PharmD - 07/16/2019 12:00 PM Glen Castaneda is s/p R JOANNA revision a nd discharged home today (07/16/2019.) Taught AVS education to patient. Educated patient on new blood thinner and pain medications . I explained indication, how to take, possible side effects, when to contact physician, and monitor parameters. We discussed aspirin: S/S clotting (stroke/DVt/PE), bleeding (bruising, bleeding, GI/), a voidance of additional NSAIDs, and when to seek medical attention. The patient was encourage d to ambulate often and to participate in PT. We discussed not to exceed 3,000 mg of acetaminophen per day. Patient was advised not to co nsume alcohol while taking opioid mediations. We discussed normal bowel movements should be about 1 to 2 per week. Advised patient to use docusate-senna twice daily until opioid pain medication regimen completed, and to add milk of magnesia and/or Miralax daily if no bowel m ovement within two days of discharge. Advised patient to contact surgeon's office if no bow el movement within three days of discharge. The patient verbalized understanding of the above and all questions were answered. Pharmaci st will follow-up with patient in one to two business days. Patient was provided with a christie nciled discharge medication list as part of their AVS instructions. Encouraged patient to sh are medication list with healthcare providers and keep list current. Marla Hardwick, PharmFazal 07/16/2019 12:00 PM Maxi Crook M D - 07/15/2019 8:15 AM PST Subjective: Post-Operative Day: 2 Days Post-Op Status Post right JOANNA revision Systemic or Specific Complaints: Mild incisional pain Objective: Patient Vitals for the past 24 hrs: BP Temp Temp src Pulse Resp SpO2 07/15/19 0749 88 90 % 07/15/19 0730 130/60 36.8 C (98.3 F) Oral 87 16 97 % 07/15/19 0729 84 16 97 % 07/15/19 0707 116/55 37.1 C (98.8 F) Oral 83 16 97 % 07/15/19 0404 109/53 37.6 C (99.7 F) Oral 82 18 96 % 07/14/19 2120 103/52 36.9 C (98.5 F) Oral 85 18 97 % 07/14/19 194 88 18 98 % 07/14/19 1513 109/53 37.2 C (99 F) Oral 91 18 98 % 07/14/19 1210 118/56 36.2 C (97.2 F) Oral 81 18 98 % I/O last 24 Hours: In: 2780 [P.O.:2780] Out: 1625 [Urine:1625] General: Alert and oriented, no distress Bandage clean, dry, intact Circulation: right foot warm and well-perfused Neuro : 5/5 strength of right ankle flexion and extension; sensation intact to light touch on dorsal and plantar surfaces of foot Data Review Recent Results (from the past 24 hour(s)) Hemoglobin and Hematocrit Result Value Ref Range Hematocrit 17.9 (LL) 40.0 - 51.0 % Hemoglobin 5.9 (LL) 13.5 - 18.0 g/dL Extra Green Top Tube Result Value Ref Range Extra Green Top Tube Done ECG 12 lead Result Value Ref Range [...] and aVL is now present Confirmed by GAGE WAGNER, BRITTANI ([id number]) on 07/15/2019 6:29:44 AM Red Blood Cells (PRBC) - Crossmatch Result Value Ref Range Product Code [id number] UNIT # [id number] UNIT ABO O UNIT RH POS CROSSMATCH INTERP Compatible Unit Status Issued Blood Product ABORh OPOS Blood Product Expiration Date and Time Product Blood Type Barcode 5100 Product Code [id number] UNIT # [id number] UNIT ABO O UNIT RH POS CROSSMATCH INTERP Compatible Unit Status Crossmatched Blood Product ABORh OPOS Blood Product Expiration Date and Time Product Blood Type Barcode 5100 Assessment: 2 Days Post-Op status post JOANNA Expected acute blood loss anemia with chronic anemia Urinary retention s/p urology placement of catheter Plan: Continue current postoperative course 2 unit PRBC blood transfusion ordered Aspirin for DVT prophylaxis Physical therapy for gait training Bladder catheter x 1 week Chaya Tovar PA-C - 07/14/2019 10:06 AM PST Subjective: Post-Operative Day: 1 Day Post-Op Status Post Revision Right Hip Arthroplasty Systemic or Specific Complaints:Doing well, pain controlled, difficulty voiding and unsucce ssful catheter attempts. Objective: Temp: [35.5 C (95.9 F)-36.6 C (97.9 F)] 35.7 C (96.2 F) Pulse: [60-101] 75 Resp: [11-20] 18 BP: (98-149)/(52-98) 103/52 General: alert and no distress Wound: Wound clean and dry no evidence of infection. Motion: Satisfactory ROM CMS: Neuro : intact. Circulation: warm, well perfused DVT Exam: No evidence of DVT seen on physical exam. Data Review Recent Results (from the past 24 hour(s)) Type and Screen Result Value Ref Range ABO O Rh Type Positive Antibody Screen Negative Extra Lavender Top Tube Result Value Ref Range Extra Lavender Top Tube Done Culture, Wound, Smear Result Value Ref Range Culture No growth to date Gram Stain Result 1+ White Blood Cells Gram Stain Result No organisms seen Hemoglobin and Hematocrit Result Value Ref Range Hematocrit 24.7 (L) 40.0 - 51.0 % Hemoglobin 7.9 (L) 13.5 - 18.0 g/dL Extra Green Top Tube Result Value Ref Range Extra Green Top Tube Done Assessment: Status Post Right Total Hip Arthroplasty Revision from Desean hip. Expected acute blood loss anemia on top of chronic idiopathic anemia. Difficulty emptying bladder Plan: Continue current postoperative course Anemia protocol PT and OT ASA for DVT prophylaxis Urology consult Will check HCT again tomorrow morning, anticipate drop to below 24 and likely transfuse 1-2 units documented in this encounter H&P Notes Percy Hatfield MD - 07/14/2019 10:42 AM PSTFormatting of this note might be differ ent from the original. No chief complaint on file. HPI Demond Castaneda is a 88 y.o. male patient of Jerome Ray MD here today for evalu ation of difficult sherman placement, urinary retention, prostate cancer. Patient recently underwent hip surgery. Postoperatively the patient has been unable to voi d. Multiple attempts have been made at trying to place a Sherman catheter and these have been unsuccessful. There appears to be an obstruction at or near the prostate. Patient states he has a history of prostate cancer and was treated with radiation and brach ytherapy. He reports a relatively long history of urinary frequency urgency, weak stream and incontin ence. He denies any recent episodes of dysuria or gross hematuria. Difficult Sherman placement The patient's genitals were prepped and draped usual fashion. An attempt was made at [facility] ng a 16 Tog[place]ese coud tip catheter. This advanced all the way to what appeared to be the po sterior urethra however it would not advance any more. Catheter was removed and a guidewire was then carefully placed into the bladder. This was somewhat time-consuming however event ually were able to enter the bladder. We then used filiform and followers. Again it was qu ite laborious to try and get the filiform into the bladder however we were successful. We t hen dilated the patient to 18 Togolese. This was again quite difficult as the stricture appea red to be at the bladder neck or prostatic urethra and was extremely dense. Once he was dil ated 18 T[place] hole punch was used to make a [place] tip catheter out of a 16 [place]ese cathete r and the 16 [place]og[place]ese catheter was placed over the guidewire and advanced into the bladder. 1 0 mils was instilled in the balloon. The guidewire was removed and the bladder was drained. Patient had approximately 600 mL in the bladder. 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 Recomm end Sherman catheter be kept in place x1 week. He would then follow-up in urology for a cysto scopy. Past Medical History Past Medical History: Diagnosis Date Actinic keratosis Anemia Basal cell carcinoma of skin CAD (coronary artery disease) Carotid stenosis CVA (cerebral vascular accident) (HCC) Eczema Femur fracture, left (HCC) Fx eight/more rib-closed H/O: facial fractures Hearing loss wears hearing aids AL (myocardial infarction) ([facility]) 2014 Osteoarthritis Pes planus Prostate cancer ([facility]) prostate Wears dentures full upper Past Surgical History Past Surgical History: Procedure Laterality Date BRACHYTHERAPY prostate cath placement 05/23/15 coronary artery stent 07/07/14 EGD AND COLONOSCOPY N/A 07/25/2015 Procedure: EGD / COLONOSCOPY; Surgeon: Demond More MD; Location: [facility] MEDICAL PROCEDUR E UNIT HIP ARTHROPLASTY Right 11/16/2015 Procedure: Right Hemiarthroplasty Hip ; Surgeon: Rayo Mercado MD; Location: [facility] MAIN OR left femur fracture repair OTHER SURGICAL HISTORY Bilateral HIP PINNING TOTAL KNEE ARTHROPLASTY Bilateral Family History: History [...] Sulfa Antibiotics Nausea And Vomiting Medications: Current Facility-Administered Medications: acetaminophen (TYLENOL) tablet 650 mg, 650 mg, Oral, 4 times per day, Chaya mendez PA-C, 650 mg at 07/14/19 0529 aspirin EC tablet 81 mg, 81 mg, Oral, BID, Chaya Humphries PA-C, 81 mg at 1000 atorvaSTATin (LIPITOR) tablet 20 mg, 20 mg, Oral, Nightly, Chaya Humphries PA-C, 20 mg at 07/13/19 2133 bisacodyl (DULCOLAX) suppository 10 mg, 10 mg, Rectal, Daily PRN, Chaya Humphries PA-C calcium carbonate (TUMS) chewable tablet 1,000 mg, 1,000 mg, Oral, Q2H PRN, Chaya Humphries PA-C diphenhydrAMINE (BENADRYL) injection 12.5 mg, 12.5 mg, Intravenous, Q4H PRN, 12.5 mg a t 07/13/192139 OR diphenhydrAMINE (BENADRYL) tablet 25 mg, 25 mg, Oral, Q4H PRN OR diphenhydrAMINE (BENADRYL) 12.5 mg/5 mL liquid 25 mg, 25 mg, Oral, Q4H PRN, Chaya mendez PA-C docusate sodium (COLACE) capsule 100 mg, 100 mg, Oral, BID, Chaya Humphries PA-C , 100 mg at 07/14/19 1000 HYDROcodone-acetaminophen (NORCO) 10-325 mg per tablet 1-2 tablet, 1-2 tablet, Oral, Q 4H PRN, Chaya Humphries PA-C HYDROcodone-acetaminophen (NORCO) 5-325 mg per tablet 1-2 tablet, 1-2 tablet, Oral, Q4 H PRN, Chaya Humphries PA-C lactated ringers (LR) infusion 2,000 mL, 2,000 mL, Intravenous, Fixed Volume (see admi n instruction), Chaya Humphries PA-C, Last Rate: 100 mL/hr at 07/13/19 1856, 1,000 mL at 07/13/19 1856 lactated ringers (LR) infusion, , Intravenous, Continuous, Sergio Alonso MD, Last Rate: 100 mL/hr at 07/13/19 1255 [START ON 07/15/2019] magnesium hydroxide (MILK OF MAGNESIA) 400 mg/5 mL suspension 30 mL, 30 mL, Oral, Nightly PRN, Chaya Humphries PA-C ondansetron (ZOFRAN ODT) disintegrating tablet 4 mg, 4 mg, Oral, Q6H PRN, Chaya Humphries PA-C ondansetron (ZOFRAN) injection 4 mg, 4 mg, Intravenous, Q6H PRN, Chaya Humphries PA-C oxyCODONE (ROXICODONE) tablet 2.5-10 mg, 2.5-10 mg, Oral, Q3H PRN, Chaya roe PA-C senna (SENOKOT) tablet 8.6 mg, 8.6 mg, Oral, BID, Chaya Yuly Humphries PA-C, 8.6 mg a t 07/14/19 1000 Review of Systems Constitutional: Negative for chills and fever. HENT: Positive for hearing loss. Negative for tinnitus. Eyes: Negative for blurred vision and double vision. Respiratory: Positive for cough and wheezing. Cardiovascular: Negative for chest pain and orthopnea. Gastrointestinal: Negative for nausea and vomiting. Genitourinary: Positive for frequency and urgency. Negative for dysuria. Musculoskeletal: Positive for back pain, joint pain and myalgias. Skin: Negative for itching and rash. Endo/Heme/Allergies: Does not bruise/bleed easily. Objective BP 103/52 | Pulse 75 | Temp 35.7 C (96.2 F) (Oral) | Resp 18 | Ht 1.854 m (6' 1") | Wt 78.5 kg (173 lb 1 oz) | SpO2 100% | BMI 22.83 kg/m General Appearance: Alert, cooperative, no distress, appears stated age Head: Normocephalic, without obvious abnormality, atraumatic Eyes: conjunctiva/corneas clear, EOM's intact Throat: Lips, mucosa, and tongue normal; no gross deformities, mmm Neck: Supple, symmetrical, no adenopathy Lungs: Regular, unlabored breathing MS No CVA tenderness, no spinal tenderness, no scoliosis present Normal external genitalia, no erythema, edema or rash Abdomen: Soft, non-tender, no masses, tattoos from prior radiation noted Extremities: Extremities normal, atraumatic, no cyanosis, clubbing, or edema Pulses: Radial pulses 2+ and symmetric Skin: Warm and dry Lymph nodes: Cervical and supraclavicular nodes normal Neurologic: CN 2-12 grossly intact; Strength and sensation grossly normal in bilateral upp er and lower extremities Data: Results for orders placed or performed during the hospital encounter of 07/13/19 Culture, Wound, Smear Result Value Ref Range Culture No growth to date Gram Stain Result 1+ White Blood Cells Gram Stain Result No organisms seen Extra Lavender Top Tube Result Value Ref Range Extra Lavender Top Tube Done Hemoglobin and Hematocrit Result Value Ref Range Hematocrit 24.7 (L) 40.0 - 51.0 % Hemoglobin 7.9 (L) 13.5 - 18.0 g/dL Extra Green Top Tube Result Value Ref Range Extra Green Top Tube Done Type and Screen Result Value Ref Range ABO O Rh Type Positive Antibody Screen Negative Lab Results Component Value Date CREA 120 08/12/2018 Jerome Ray MD's notes were reviewed in clinic today. No follow-ups on file.. This document was generated in part using voice recognition software. Frequent wrong word or sound-alike substitutions may have occurred due to the inherent limitations of the voice recognition software. Although I have attempted to edit the content, I have not thoroughly proofread this note, and medical technologist blood bank errors are very likely to occur. CC: Jerome Ray MD Maxi Crook MD - 07/13/2019 1:55 PM [facility] SURGICAL INTERIM HISTORY AND PHYSICAL UPDATE Pt. Name/Age/: Demond Castaneda 88 y.o. 1930 Date of admission: 07/13/2019 The current H&P was reviewed. The patient was reexamined. Re-evaluation of the patient co nfirms the necessity for the scheduled procedure. No change has occurred in the patient s condition since the H&P was completed less than 30 days ago. Electronically signed by: Maxi Zamora MD, 07/13/2019 1:55 PM [facility] NETWORKElectronically signed by Maxi Zamora MD at 07/13 1:55 PM Chaya Tovar PA-C - 07/09/2019 10:21 AM [facility] Complaint Right hip pain. History of Present Illness Mr. Castaneda is an 88 year old man who presents to the clinic today with his and two da ughters, following up on his right hip pain. In October 2015 the patient fell over backwards w hile working with a horse fracturing his right hip. Patient then underwent right desean hip a rthroplasty with Dr. Mercado. He notes that 3 months after surgery he was back to horseback riding, but then his right knee became painful when walking and performing his routine activ ities. In April 2016 Dr. Mercado performed right total knee arthroplasty on him. He repo rts that he has had pain ever since then. He feels like most of the pain is in the anterola teral right hip. He states that pain radiates from his hip to his thigh when standing and w alking. He has a lot of start-up pain. Standing in one position for too long is very painfu l. He states that pain is worse in the mornings and especially with colder weather. Doroteo pearl has tried taking Tramadol, gabapentin, and extra strength Tylenol. He sees Dr. Ray as his primary care provider. Review of Systems Constitutional: negative. Eyes: negative. ENT: hearing loss. Cardiovascular: negative. Respiratory: negative. Gastrointestinal: negative. Genitourinary: negative. Musculoskeletal: Right lower extremity pain and joint stiffness, but as noted in HPI. Integumentary: negative. Neurological: Poor balance/coordination. Psychiatric: negative. Endocrine: Low energy. Hematologic/Lymphatic: On plavix. Past Medical History ?? History of cerebrovascular accident (Z86.73) ?? 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 History of myocardial infarction (I25.2) ?? History of rheumatoid arthritis (Z87.39) Surgical History ?? History of Coronary artery stent placement ?? History of Hip fracture repair ?? History of Hip replacement ?? History of Knee replacement Family History Mother ?? Family history of cerebrovascular accident (CVA) (Z82.3) ?? Family history of myocardial infarction (Z82.49) Current Meds ?? Aspirin 81 MG TABS; Therapy: (Recorded:[id number]) to Recorded ?? Lipitor 20 MG Oral Tablet (Atorvastatin Calcium); Therapy: (Recorded:[id number]) to Recorded ?? Tylenol TABS; 500 mg two tablets by mouth in the morning; Therapy: (Recorded:17Jun2019) to Recorded Allergies ?? sulfa Vitals Vitals Panel Recorded: 17Jun2019 04:17PM Height: 6 ft 1 in Weight: 168 lb BMI Calculated: 22.17 BSA Calculated: 2 Blood Pressure: 128 / 69 Heart Rate: 62 Physical Exam Physical Exam: Well appearing elderly male seen with his daughter today HEENT: atraumatic normocephalic anicteric Cor: regular pulse Resp: regular non labored respirations Skin: warm and dry Orthopedic Hip: Gait shows an antalgic limp, favoring the right leg. Tabletop examination s hows right leg to be 1/2 in short in the context of knee contractures bilaterally. Right hip range of motion is diminished with a 10 flexion contracture associated with 20 flex ion contracture at the knee. Flexion is to 90 , abduction to 25 and adduction is to 10 . There is minimal rotation of the hip in a flexed position. There is reproduction of his pain with attempted internal rotation which he feels inguinally. Palpation reveals no tenderness over the right greater. Figure four produces pain in the anterior hip. Resisted leg rise produces pain in the anterior hip. Loading of the hip with it in 90 degrees of fl exion reproduces his pain. Straight leg raise is negative. Results/Data Radiographs: Films of the hip show right desean hip arthroplasty with a press-fit stem and a sclerotic line around the femoral component, a pedestal and a small amount of subsidence co mpared to immediate postoperative films, all consistent with loosening. There is some narro wing of the clear space of the superior weight bearing surface of the right acetabulum. Th e left hip is s/p cannulated screw fixation. Bone scan of the right hip shows mild uptake in the region of the pedestal and around the p rosthesis as well as in the medial acetabular area. Assessment ?? 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 My assessment is that he has loosening of his uncemented femoral stem and, marina te likely, pain related to the prosthetic head articulating in the [place] acetabulum. There is no evidence of chronic indolent infection Today, I had a lengthy discussion with the patient and his family about the option for revi zahida hip arthroplasty surgery as the only way to definitively treat his pain. I explained t o him the nature of this surgical procedure, the multiple potential risks involved in the fa irly lengthy recovery expected afterward. We discussed specifically the increased risk of h ip dislocation in a revision hip surgery, increased risk of infection and increased risk of blood transfusion, especially given his preoperative chronic anemia. He accepts all of thes e risks as well as the standard risks of hip arthroplasty surgery and gives informed consent in writing. Postoperative plan is for a brief hospital stay followed by return home with the care of hi s and daughters. He does have CAD and has seen cardiology, Dr. Almeida on 04/28/2019 With regards to his anemia, that has been worked up and there is no specific known cause. Plan is to proceed with surgery with the assumption that we will give him a blood transfusio n postoperatively. We will do a type and cross preoperatively. CS-Active Problems 1. 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 History of right hip hemiarthroplasty (Z96.641) 5. Preoperative examination (Z01.818) 6. Right hip pain (M25.551) 7. Right knee pain (M25.561) Signatures Electronically signed by : Maxi Zamora MD; Jun 18 2019 9:19AM PST (Author)Electronicall y signed by Chaya Humphries PA-C at 07/09/2019 10:23 AM PSTdocumented in this encounte r Nursing Notes Justyn Alvarado RN - 07/13/2019 3:[address] TO 16 [address] TEMP. SHERMAN AFTER A NESTHESIA GENERAL AND SPINAL INDUCTION WITH URETHRAL RESISTANCE AT APPROXIMATELY 3/4 WAY OF SHERMAN LENGTH AT [facility] WITH NO URINE RETURN. USED TACTILE MASSAGE AT BASE OF PENIS AND PALP ATED COILING OF THE CATHETER. USED GENTLE TWISTING AND RE-POSITIONING OF PENIS WITHOUT SUCCE SS. USED A 14 FR COUDE-TIP CATHETER ON A 14 FR. SHERMAN KIT AFTER RE-PREPPING WITH SAME TECHNI QUES USED AFOREMENTIONED WITHOUT URINE RETURN. NO BLOOD FROM [facility] AND/OR IN CATHETER WA S NOTED. SURGEON STATED TO STOP AT THIS POINT AND WOULD CONSULT UROLOGY. --- Db ALVARADO RN document ed in this encounter Miscellaneous Notes Plan of Care - Lurdes Chapa RN - 07/16/2019 1:30 PM PSTIV removed, no redness noted . Discharge instructions reviewed by pharmacy with patient, all questions answered. Escorted out with staff assist via wheelchair to personal vehicle. All belongings, prescriptions, an d written instructions sent with patient. lan of [facility] thomasQing, SALES TECHNICIAN HOME THEATER - 07/16/2019 12:26 PM PSTJames breath sounds are clear and equal bilatera lly.Spo2=95% on room air.Patient is not short of breath.Electronically signed by Qing Fajardo [facility] quoc, SALES TECHNICIAN HOME THEATER at 07/16/2019 12:27 PM PSTPlan of [facility] Qing Dong, SALES TECHNICIAN HOME THEATER - 07/16/2019 12:23 PM PST Severity Score 3 Class 1 Severity Score 0-4 ITEM 0 1 2 3 4 1 Respiratory History No Smoking history Current tobacco use Up to 10 Pack year history. Simple home regimen Known Pulmonary Disease 20 pack year history Complex Home regimen 30+ pack year history Severe Pulmonary Disease or exacerbation 1 Surgery Status (current admission) No surgery Minor surgery Lower abdominal rib fractures Thoracic or uppe r abdominal Thoracic with pulmonary disease or Central Nervous System 1 Chest X-RAY Clear or Normal baseline Unavailable Improving/clearing Abnormal, Unilateral or mild Infiltrates or atelectasis, Chronic changes Infiltrates mild bilateral or unilateral or pleural effusions extensive Inf iltrates, atelectasis or pleural effusions, pneumothorax 0 Respiratory Pattern Regular pattern Respiratory Rate:8-20 Increased Respiratory Rate, labored Dyspnea on exertion, irregular pattern Use of accessory muscles, prolonged expirato ry phase nasal flaring Severe Dyspnea , Purse Lip Breathing, Use of accessory muscles 0 Breath Sounds Clear Diminished unilaterally Diminished bilaterally &/or crackles Wheezing or Rhonchi &/or absent unilateral Absent bilaterally 0 Cough Strong, non productive Moderate, loose, productive Weak, non-productive Weak, ineffective Non-spontaneous or may require suctioning 0 Sputum None Scant / Thin White/clear Moderate Beige/ yellow Large / Thick Dark Green/Brown Copious / Plugs Hemoptysis collins 0 LOC Alert, oriented, cooperative Disoriented, follows commands Obtunded, arousable, follo ws commands Obtunded, uncooperative, sedated Comatose 0 Oxygen Demand Room air Baseline 1-2 liters 3-6 liters >7 Liters Oxymizer to > 55% 60% or greater Total Severity Score (SS) Class 0-3 PRN 1 4-7 TID or PRN 2 8-11 QID 3 12-14 Q4 W/A 4 15+ Q4 5 lan of Care - JenaeMajo dupont, OR MANAGER - 07/16/2019 11:41 AM PSTFormatting of this note might be different fr om the original. Physical Therapy Plan of Care Treatment Note Summary: Demond has been participating in physical therapy for treatment of Revision of ri ght hip hemiarthroplasty to total hip arthroplasty via posteriolateral approach. . Emphasis of session included functional mobility training with focus on bed mobility, trans fers, gait and stair training. Patient demonstrates progress towards functional goals as ev idenced by progression of gait distance, stair training and decreased assistance with functi onal mobility. RN cleared patient for participation in therapy. Patient was agreeable to therapy. Patient participated without adverse reaction. RN debriefed on therapy session and patient status. I t is encouraged that the patient be up in chair for all meals. Recommended mobility with nursing: Day Night into the bathroom into the bathroom Front Wheel Walker Front Wheel Walker stand by assistance stand by assistance contact guard assistance Remaining barriers to discharge and functional limitations include decreased functional act ivity tolerance, decreased bed mobility, decreased functional transfers, decreased functiona l gait distance, decreased gait velocity, and stairs at home. Demond will benefit from continued therapeutic intervention to address ongoing impairments a nd increase safety and independence with activities necessary for safe discharge. Refer bel ow for specific details regarding functional levels. Physical Therapy Discharge Recommendations are: Recommended discharge disposition: home with assist Post discharge physical therapy recommendation: will benefit from structured setting, ongo ing low intensity therapy, outpatient therapy, family involved/supportive, pt is motivated p articipant Equipment Recommendations: (has FWW) Planned Interventions: balance training, bed mobility training, gait training, home exerci se program, joint mobilization, manual therapy techniques, motor coordination training, neur omuscular re-education, orthotic fitting/training, patient/family education, postural re-edu cation, beninese ball techniques, stretching, strengthening, stair training, ROM (Range of Fidel on), transfer training Recommended Frequency: (1-2x/day ORTHO) Patient Status/Goals: Reflects last filed data and may be from multiple contributors. Gait Patient able to complete without assistance. CGA initially with progress to SBA end of sess ion. Level of Jay: stand by assist, contact guard assist Assistive Device: 2 wheeled walker (FWW) Distance (feet): 50 ft, 150 ft Gait Pattern Analysis: 3-point gait Safety Issues: step length decreased, weight-shifting ability decreased Impairments: decreased flexibility, ROM decreased, strength decreased, pain Stairs completed stair training. patient able to recall good technique from previous surgery. Number of Stairs: 8 Handrail Location: both sides Level of Jay: stand by assist Assistive Device: 2 rails Technique Used: step to step (ascending), step to step (descending) Safety Issues: weight-shifting ability decreased Impairments: pain, impaired balance, strength decreased, decreased flexibility Transfers Patient able to complete witout assistance. increased difficulty with rising from lower hei ght chair and required extra time and effort, able to maintain hip precautions throughout se ssion. Sit-Stand, Level of Jay: stand by assist Stand-Sit, Level of Jay: stand by assist Dsi-Lgruv-Hia, Assistive Device: 2 wheeled walker (FWW) Safety Issues: step length decreased, weight-shifting ability decreased Impairments: decreased flexibility, ROM decreased, strength decreased, pain Bed Mobility Patient able to complete without assistance. extra time and effort required. good ahderence to post hip precautions. Assistive Device: bed rails, HOB elevated Supine to Sit, Level of Jay: supervised Sit to Supine, Level of Jay: not tested(pt left up in chair for luch) Safety Issues: decreased use of legs for bridging/pushing Impairments: decreased flexibility, ROM decreased, strength decreased, pain PT Goal Review Date Most Recent Value STG Review Date 07/21/19 at 07/14/2019 0845 [id number] Goal Most Recent Value STG Status met at 07/15/2019 1503 STG Jay Level minimum assist (75% patient effort) at 07/14/2019 0845 STG Assistive Device bed rails, HOB elevated at 07/14/2019 0845 Jdy-Tuouu-Lwy Goal Most Recent Value STG Status progressing at 07/15/2019 1503 STG Jay Level modified independent, minimum assist (75% patient effort) at 2019 0845 STG Assistive Device 2 wheeled walker (FWW) at 07/14/2019 0845 Vry-Ayaci-Wfx Goal Most Recent Value STG Status met at 07/16/2019 1141 STG Jay Level minimum assist (75% patient effort) at 07/14/2019 0845 STG Assistive Device 2 wheeled walker (FWW) at 07/14/2019 0845 Gait Goal Most Recent Value STG Status progressing at 07/16/2019 1141 STG Jay Level supervised at 07/14/2019 0845 STG Assistive Device 2 wheeled walker (FWW) at 07/14/2019 0845 STG Distance (feet) 50 at 07/14/2019 0845 Stair Goal Most Recent Value STG Status progressing at 07/16/2019 1141 STG Jay Level modified independent at 07/16/2019 1110 STG Assistive Device 2 rails at 07/16/2019 1110 STG Number of Stairs 9 at 07/16/2019 1110 PT Time Calculation Individual Start Time: 1115 Individual Stop Time: 1141 Individual Total Time: 26 Missed Treatment Time: 0 PT Total Treatment Time: 26 Timed TX Code Minutes: 26 Electronically signed by: Majo Carty PTA, 07/16/2019 11:56 AM Associated attestation - Veronica Simmons, PT - 07/16/2019 1:09 PM PSTSpoke with Majo Carty PTA regarding home situation. Chart review revealed patient has stairs to enter . Appropriate mobility status to initiate stair training. Stair goal added, OR MANAGER to initiat e stair training. Electronically signed by: Veronica Simmons, PT 07/16/2019 1:09 PMPlan of Vivien - Darin Arita - 07/16/2019 9:55 AM PSTMet with He this morning to finalize his discharge plan. He will discharge home with a adams and is to kept in until his follow up appointment with Dr. Hatfield, which is scheduled for the Jun. Check in 153. This appointment was placed on the AVS. He would like home health to follow him at home. Option form signed and placed in the [facility] t chart. This CM notified Fay at . He stated his ride (spouse) will be here around 1200 today. She will need to have sherman te aching prior to He discharging. DISP: Home with home health. Electronically signed by: Marion Arita 07/16/2019 10:42 AM lan of Sujit Rubalcava RN - 07/16/2019 2:13 AM PSTJarahul is doing ok. Demond is a/o x4. On routine tylenol and has been effective. Aquacel dressing is CDI. States no numbness to incision site. Sherman is d raining c/y/u. VSS/afebrile. LSC, HRR, BT normoactive and last BM 07/13. Sleeping good durin g noc rounds. lan of Majo Phelan RN - 07/15/2019 4:24 PM PSTJim received 2 units of RBC's this mo rning. After completed he ambulated in the [place] with PT and fww. Pt has only complained of m inimal pain, scheduled tylenol is all he wants to take. Sherman is draining clear yellow urine . Pt denies numbness or tingling. Dressing is CDI. lan of Annabelle Morales, OR MANAGER - 07/15/2019 3:03 PM PST Physical Therapy Plan of Care Treatment Note Summary: Demond has been participating in physical therapy for treatment of Revision of ri ght hip hemiarthroplasty to total hip arthroplasty via posteriolateral approach. . Emphasis of session included functional mobility and activity tolerance training with focus on safe transfers and gait with FWW. Patient demonstrates progress towards functional goals as evidenced by improved distance wi th gait. RN cleared patient for participation in therapy. Patient was agreeable to therapy. Patient participated without adverse reaction. It is encouraged that the patient be up in chair for all meals. Recommended mobility with nursing: Day Night into the bathroom and into the hallway into the bathroom and into the hallway Front Wheel Walker Front Wheel Walker stand by assistance contact guard assistance stand by assistance contact guard assistance Remaining barriers to discharge and functional limitations include decreased functional act ivity tolerance, decreased functional gait distance, decreased gait velocity, stairs at home , not able to navigate stairs, and not yet able to mobilize at level safe for home discharge . Demond will benefit from continued therapeutic intervention to address ongoing impairments a nd increase safety and independence with activities necessary for safe discharge. Refer bel ow for specific details regarding functional levels. Physical Therapy Discharge Recommendations are: Recommended discharge disposition: home with assist Post discharge physical therapy recommendation: will benefit from structured setting, ongo ing low intensity therapy, outpatient therapy, family involved/supportive, pt is motivated p articipant Equipment Recommendations: (has FWW) Planned Interventions: balance training, bed mobility training, gait training, home exerci se program, joint mobilization, manual therapy techniques, motor coordination training, neur omuscular re-education, orthotic fitting/training, patient/family education, postural re-edu cation, beninese ball techniques, stretching, strengthening, stair training, ROM (Range of Fidel on), transfer training Recommended Frequency: (1-2x/day ORTHO) Patient Status/Goals: Reflects last filed data and may be from multiple contributors. Gait no physical assist, extra time and effort, good adherence to hip precautions Level of Jay: contact guard assist, verbal cues required Assistive Device: 2 wheeled walker (FWW) Distance (feet): 120' Gait Pattern Analysis: 3-point gait Safety Issues: step length decreased, weight-shifting ability decreased Impairments: decreased flexibility, ROM decreased, strength decreased, pain Stairs Patient has 9 steps at home Transfers no physical assist, extra time and effort, good adherence to hip precautions Bed-Chair, Level of Jay: stand by assist Chair-Bed, Level of Jay: stand by assist, verbal cues required [id number], Assistive Device: 2 wheeled walker (FWW) Sit-Stand, Level of Jay: stand by assist, verbal cues required Stand-Sit, Level of Jay: stand by assist, verbal cues required [id number], Assistive Device: 2 wheeled walker (FWW) Safety Issues: step length decreased, weight-shifting ability decreased Impairments: decreased flexibility, ROM decreased, strength decreased, pain Bed Mobility no physical assist, extra time and effort, good adherence to hip precautions Assistive Device: bed rails, HOB elevated Supine to Sit, Level of Jay: stand by assist, set up required, verbal cues require d, tactile cues required Sit to Supine, Level of Jay: not tested Safety Issues: decreased use of legs for bridging/pushing Impairments: decreased flexibility, ROM decreased, strength decreased, pain Balance Good with FWW Therapeutic Exercise discussed HEP, will review prior to d/c Functional Endurance Improving, good for activities presented ROM R posterior hip prec ROM Testing Results: no range of motion deficits identified Strength R posterior hip prec PT Goal Review Date Most Recent Value STG Review Date 07/21/19 at 07/14/2019 0845 [id number] Goal Most Recent Value STG Status met at 07/15/2019 1503 STG Jay Level minimum assist (75% patient effort) at 07/14/2019 0845 STG Assistive Device bed rails, HOB elevated at 07/14/2019 0845 [id number] Goal Most Recent Value STG Status progressing at 07/15/2019 1503 STG Jay Level modified independent, minimum assist (75% patient effort) at 2019 0845 STG Assistive Device 2 wheeled walker (FWW) at 07/14/2019 0845 [id number] Goal Most Recent Value STG Status progressing at 07/15/2019 1503 STG Jay Level minimum assist (75% patient effort) at 07/14/2019 0845 STG Assistive Device 2 wheeled walker (FWW) at 07/14/2019 0845 Gait Goal Most Recent Value STG Status progressing at 07/15/2019 1503 STG Jay Level supervised at 07/14/2019 0845 STG Assistive Device 2 wheeled walker (FWW) at 07/14/2019 0845 STG Distance (feet) 50 at 07/14/2019 0845 PT Time Calculation Individual Start Time: 1431 Individual Stop Time: 1503 Individual Total Time: 32 Missed Treatment Time: 0 PT Total Treatment Time: 32 Timed TX Code Minutes: 32 Electronically signed by: Annabelle Guthrie PTA, 07/15/2019 3:47 PM lan of [facility] Tim Howell, SALES TECHNICIAN HOME THEATER - 2019 10:06 AM PST Demond was 90% on RA with clear BS and no SOB reported. Unlabored RR 16. He completed his IS goal. Severity Score 3 Class 1 Severity Score 0-4 ITEM 0 1 2 3 4 1 Respiratory History No Smoking history Current tobacco use Up to 10 Pack year history. Simple home regimen Known Pulmonary Disease 20 pack year history Complex Home regimen 30+ pack year history Severe Pulmonary Disease or exacerbation 1 Surgery Status (current admission) No surgery Minor surgery Lower abdominal rib fractures Thoracic or uppe r abdominal Thoracic with pulmonary disease or Central Nervous System 1 Chest X-RAY Clear or Normal baseline Unavailable Improving/clearing Abnormal, Unilateral or mild Infiltrates or atelectasis, Chronic changes Infiltrates mild bilateral or unilateral or pleural effusions extensive Inf iltrates, atelectasis or pleural effusions, pneumothorax 0 Respiratory Pattern Regular pattern Respiratory Rate:8-20 Increased Respiratory Rate, labored Dyspnea on exertion, irregular pattern Use of accessory muscles, prolonged expirato ry phase nasal flaring Severe Dyspnea , Purse Lip Breathing, Use of accessory muscles 0 Breath Sounds Clear Diminished unilaterally Diminished bilaterally &/or crackles Wheezing or Rhonchi &/or absent unilateral Absent bilaterally 0 Cough Strong, non productive Moderate, loose, productive Weak, non-productive Weak, ineffective Non-spontaneous or may require suctioning 0 Sputum None Scant / Thin White/clear Moderate Beige/ yellow Large / Thick Dark Green/Brown Copious / Plugs Hemoptysis collins 0 LOC Alert, oriented, cooperative Disoriented, follows commands Obtunded, arousable, follo ws commands Obtunded, uncooperative, sedated Comatose 0 Oxygen Demand Room air Baseline 1-2 liters 3-6 liters >7 Liters Oxymizer to > 55% 60% or greater Total Severity Score (SS) Class 0-3 1 4-7 2 8-11 3 12-14 4 15+ 5 lan of Care - Majo Quiros PTA - 07/15/2019 9:25 AM PSTTherapy Plan of Care Missed Visit Note Patient Information Patient Name: Demond Castaneda Date of : 1930 Age: 88 y.o. The patient was unable to be seen for today's scheduled visit due to on hold per nursing. P atient with low H&H, currently getting transfusion. Will check in with nursing later in day for therapy session. Plan: Cont with POC at next scheduled session. Electronically signed by: Majo Carty PTA, 07/15/2019 10:23 AM Electronically sign ed by Majo Carty PTA at 07/15/2019 10:24 AM PSTPlan of Lalitha Townsend O T - 07/15/2019 7:14 AM PSTTherapy Plan of Care Missed Visit Note Patient Information Patient Name: Demond Castaneda Date of : 1930 Age: 88 y.o. The patient was unable to be seen for today's scheduled visit due to on hold per nursing. P atient with low H&H, currently getting transfusion. Will check in with nursing later in day for therapy session. Plan: Continue OT POC at next scheduled visit. Electronically signed by: Lalitha Evans OT, 07/15/2019 11:13 AM lan of [facility] - Clarisse Jones RN - 07/15/2019 1:42 AM PSTA&Ox4, CMS intact pt denies the presence of numbn ess/tingling, VSS, drsg to R hip is CDI, R dorsi/plantar strong, abductor pillow in place, l ungs clear on 2L O2 via NC, denies SOB, bowel tones active x4 (last BM 07-12-19), passing fla tus, tolerating diet well denies n/v, sherman present draining uma colored urine, calls appr opriately and is able to make needs known. He c/o minimal pain to his R hip - he is receiving jenae Tylenol 650 mg. Purposeful rounding performed, will continue to monitor. Critical lab value this am - H&H 5.[address] Zamora notified and ordered 2 units of P RBC's to be transfused. Orders placed. Electronically signed by Clarisse Lakhani RN at 06/27 6:47 AM PSTPlan of Majo Joes RN - 07/14/2019 8:16 PM PSTJim has denied any nausea or vomiting this shift, he was advance to a general diet with no issues. Foreign sher has denied much pain this shift, at 12 he refused his scheduled tylenol and then decided l ater in the afternoon that he should take it. Pt ambulated with therapy today with CGA w/ fw w. Pt was up in the chair for about an hour. Sherman is draining light uma urine. His dressi ng is CDI. Pt denies numbness or tingling. Bed alarm active. Call light within reach.Electro nically signed by Majo Walden RN at 07/14/2019 8:28 PM PSTPlan of Chris Benedict - 07/14/2019 3:08 PM PSTDischarge Planning: Met with He this morning. He is [place] and [facility]. He lives with his spouse in a two story with 9 steps at the entrance [place] from [facility] on. He has a FWW, walk in shower with a shower chair, grab bars, and a framed toilet. He declined home health. He will have his spouse to help him hour as needed. He uses [facility] for his pharmacy needs, PCP: Dr. Ray. He will have his spouse transport him home once he is medically stable. 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 . Emphasis of session included functional mobility training with focus on bed mobility, trans fers and gait training. Patient demonstrates progress towards functional goals as evidenced by continued participation in therapy and progression of activity tolerance. RN cleared patient for participation in therapy. Patient was agreeable to therapy. Patient participated without adverse reaction. RN debriefed on therapy session and patient status. I t is encouraged that the patient be up in chair for all meals. Recommended mobility with nursing: Day Night into the bathroom bedside commode and into the bathroom Front Wheel Walker Front Wheel Walker contact guard assistance contact guard assistance Remaining barriers to discharge and functional limitations include decreased insight into s afety and deficits, decreased functional activity tolerance, decreased bed mobility, decreas ed functional transfers, decreased functional gait distance, decreased gait velocity, stairs at home, not able to navigate stairs, not yet able to mobilize at level safe for home disch arge, and medical status. Demond will benefit from continued therapeutic intervention to address ongoing impairments a nd increase safety and independence with activities necessary for safe discharge. Refer bel ow for specific details regarding functional levels. Physical Therapy Discharge Recommendations are: Recommended discharge disposition: home with assist Post discharge physical therapy recommendation: will benefit from structured setting, ongo ing low intensity therapy, outpatient therapy, family involved/supportive, pt is motivated p articipant Equipment Recommendations: (has FWW) Planned Interventions: balance training, bed mobility training, gait training, home exerci se program, joint mobilization, manual therapy techniques, motor coordination training, neur omuscular re-education, orthotic fitting/training, patient/family education, postural re-edu cation, beninese ball techniques, stretching, strengthening, stair training, ROM (Range of Fidel on), transfer training Recommended Frequency: (1-2x/day ORTHO) Patient Status/Goals: Reflects last filed data and may be from multiple contributors. Gait Gait with FWW, patient with slow but steady pace. CGA for safety. Level of Jay: minimal assist (75% patient effort) Assistive Device: 2 wheeled walker (FWW) Distance (feet): 25 ft x 2 Gait Pattern Analysis: 3-point gait Safety Issues: weight-shifting ability decreased, step length decreased Impairments: pain, impaired balance, strength decreased, ROM decreased, decreased flexibili ty Transfers increased time and effort Verbal cues for hand placement and technique. Good recall for LE positioning to maintain precautions for sit<>stand. Sit-Stand, Level of Jay: contact guard assist, verbal cues required Stand-Sit, Level of Jay: contact guard assist, verbal cues required [id number], Assistive Device: 2 wheeled walker (FWW) Safety Issues: weight-shifting ability decreased, step length decreased Impairments: strength decreased, ROM decreased, decreased flexibility, pain Bed Mobility Patient able to complete with extra time and effort. Required min A for LE to edge of bed. Bed features also utilized. Assistive Device: HOB elevated, bed rails Supine to Sit, Level of Jay: minimal assist (75% patient effort), verbal cues requ ired Sit to Supine, Level of Jay: not tested Safety Issues: decreased use of legs for bridging/pushing Impairments: decreased flexibility, ROM decreased, strength decreased, impaired balance, pa in, motor control impaired PT Goal Review Date Most Recent Value STG Review Date 07/21/19 at 07/14/2019 0845 [id number] Goal Most Recent Value STG Status progressing at 07/14/2019 1330 STG Jay Level minimum assist (75% patient effort) at 07/14/2019 0845 STG Assistive Device bed rails, HOB elevated at 07/14/2019 0845 [id number] Goal Most Recent Value STG Status new at 07/14/2019 0845 STG Jay Level modified independent, minimum assist (75% patient effort) at 2019 0845 STG Assistive Device 2 wheeled walker (FWW) at 07/14/2019 0845 [id number] Goal Most Recent Value STG Status progressing at 07/14/2019 1330 STG Jay Level minimum assist (75% patient effort) at 07/14/2019 0845 STG Assistive Device 2 wheeled walker (FWW) at 07/14/2019 0845 Gait Goal Most Recent Value STG Status progressing at 07/14/2019 1330 STG Jay Level supervised at 07/14/2019 0845 STG Assistive Device 2 wheeled walker (FWW) at 07/14/2019 0845 STG Distance (feet) 50 at 07/14/2019 0845 PT Time Calculation Individual Start Time: 1300 Individual Stop Time: 1330 Individual Total Time: 30 Missed Treatment Time: 0 PT Total Treatment Time: 30 Timed TX Code Minutes: 30 Electronically signed by: Majo Carty PTA, 07/14/2019 2:31 PM lan of Care - Lalitha Evans OT - 07/14/2019 10:55 AM PST Occupational Therapy Plan of Care Initial Evaluation, Treatment Note Summary: Demond presents to occupational therapy with Decreased ADL independence, function al mobility, activity tolerance s/p admission for with Revision of right hip hemiarthroplast y to total hip arthroplasty via posteriolateral approach. Objective exam reveals impairmen ts with ergonomics and body mechanics, functional endurance/activity tolerance, gait, locomo tion, and balance, joint integrity and mobility, muscle performance, posture, ROM. Session f ocused on bed mobility, functional t/fs, LB dressing, and toilet t/fs. RN cleared patient for participation in therapy. Patient was agreeable to therapy. Patient participated without adverse reaction. RN debriefed on therapy session and patient status. I t is encouraged that the patient be up in chair for all meals. Recommended toileting with nursing: Day Night toilet with bedside commode over bedside commode Front Wheel Walker Front Wheel Walker contact guard assistance contact guard assistance Barriers to discharge and functional limitations include decreased functional activity tole jaye, decreased ability to perform ADLs, decreased ability to perform IADLs, and not yet ab le to mobilize at level safe for home discharge. Anticipate return home with family. Will co ntinue to monitor and update as appropriate. Demond will benefit from therapeutic intervention to address impairments and increase safety and independence with activities necessary for safe discharge. Refer below for specific de tails regarding functional levels. Precautions/Limitations: falls, right posterior hip precautions Right Lower Extremity Weight-Bearing: weight-bearing as tolerated Previous Level of Function: Transferring: independent Ambulation: independent Toileting: independent Bathing: independent Dressing: independent Eating: independent Communication: understands/communicates without difficulty Swallowin-->swallows foods/liquids without difficulty Equipment Currently Used at Home: none Prior Functional Level Comment: Pt was independent with mobility without A.D. Potential available assistance at discharge: family Living Environment/Accessibility: Lives With: spouse Living Arrangements: house Home Accessibility: stairs (2 railings present) Financial Concerns: none Transportation Available: family or friend will provide Patient/Family s Goals: home Rehabilitation potential: good, to achieve stated therapy goals Occupational Therapy Discharge Recommendations are: Recommended discharge disposition: home with assist Post discharge occupational therapy recommendation: pt is motivated participant, will bene fit from structured setting, no further OT Equipment Recommendations: shower chair Planned Interventions:functional endurance training, ADL retraining, balance training, bed mobility training, stretching, transfer training, strengthening, discharge planning Recommended Frequency: (3-5x's) Patient Status/Goals: Reflects last filed data and may be from multiple contributors. ADLs max assist d/t pain, decreased ROM and precautions as well as pt states his spouse assisted prior to surgery. will review precautions and AE. LB Dressing, Level of Jay: maximal assist (25% patient effort), set up required, v erbal cues required, tactile cues required Assistive Device: none LB Dressing Assess/Train, Position: sitting LB Dressing Impairments: decreased flexibility, ROM decreased, strength decreased, impaired balance, pain, impaired functional endurance/activity tolerance CGA at sink for generalized safety to wash hands. Grooming, Level of Jay: contact guard assist, set up required, verbal cues require d Grooming Assess/Train, Position: standing Grooming Impairments: decreased flexibility, ROM decreased, impaired functional endurance/a ctivity tolerance, strength decreased Cognitive Orientation: oriented x 4 Bed Mobility min A for RLE back into bed. Assistive Device: bed rails, HOB elevated Supine to Sit, Level of Jay: not tested Sit to Supine, Level of Jay: minimal assist (75% patient effort) Safety Issues: decreased use of legs for bridging/pushing Impairments: decreased flexibility, ROM decreased, strength decreased, impaired balance, pa in, motor control impaired Transfers increased time/effort; cueing for hand placement. good sequencing and pushing leg out to ad here to precautions during sitting. Chair-Bed, Level of Jay: contact guard assist, verbal cues required [id number], Assistive Device: 2 wheeled walker (FWW) Sit-Stand, Level of Jay: contact guard assist, verbal cues required Stand-Sit, Level of Jay: contact guard assist, verbal cues required [id number], Assistive Device: 2 wheeled walker (FWW) Toilet, Level of Jay: contact guard assist, verbal cues required Toilet, Assistive Device: 2 wheeled walker (FWW), toilet safety frame Safety Issues: weight-shifting ability decreased, step length decreased Impairments: strength decreased, ROM decreased, decreased flexibility, pain ROM R posterior hip prec ROM Testing Results: no range of motion deficits identified Strength R posterior hip prec L UE Strength: WFL R UE Strength: WFL OT Goal Review Date Most Recent Value STG Review Date 07/21/19 at 07/14/2019 1024 LB Dressing Goal Most Recent Value STG Status new at 07/14/2019 1024 STG Jay Level stand by assist at 07/14/2019 1024 STG Adaptive Equipment senior radiation protection technician, shoe horn, long handled, sock-aid at 07/14/2019 1024 Toilet Transfer Goal Most Recent Value STG Status new at 07/14/2019 1024 STG Jay Level supervised at 07/14/2019 1024 STG Assistive Device 2 wheeled walker (FWW), grab bars, toilet safety frame at 07/14/2019 1024 Tub/Shower Transfer Goal Most Recent Value Tub/Shower Type walk in shower stall at 07/14/2019 1024 STG Status new at 07/14/2019 1024 STG Jay Level stand by assist, supervised at 07/14/2019 1024 STG Assistive Device 2 wheeled walker (FWW), grab bars, shower chair at 07/14/2019 1024 OT Time Calculation OT Individual Start Time: 1024 OT Individual Stop Time: 1055 OT Individual Total Time: 31 OT Total Treatment Time: 31 Timed TX Code Minutes: 16 Electronically signed by: Lalitha Evans OT, 07/14/2019 1:42 PM nesthesia Pain Man [facility] - Sergio Alonso MD - 07/14/2019 10:07 AM [facility] Neuraxial Opioid Follow-Up Pain level: Mild The patient had nausea and/or vomiting in the last 24 hours. The patient has no additional complaints at this time. The patient is in no acute distress. Recent vitals Temp: 35.7 C (96.2 F) Pulse: 75 Resp: 18 BP: 103/52 SpO2: 100 % nasal cannula Min/Max temp Temp Av.9 C (96.6 F) Min: 35.5 C (95.9 F) Max: 36.6 C (97.9 F) @ The patient is able to move all four extremities. Sherman: in. Status post spinal morphine PF The patient is doing well. Continue pain medications per surgeon/primary team. There is no apparent anesthetic complication noted at this time. Pain was under good control for duration of SAB narcotics. lan of Care - Jerome Munoz, PT - 07/14/2019 9:25 AM PSTFormatting of this note might be different fr om the original. Physical Therapy Plan of Care Initial Evaluation, Treatment Note Summary: Demond presents to physical therapy with Revision of right hip hemiarthroplasty t o total hip arthroplasty via posteriolateral approach. Overall pt is able to mobilize short distances with FWW use with Min A and cues for safety. Objective exam reveals impairments with aerobic capacity/endurance, anthropometric characte ristics, ergonomics and body mechanics, functional endurance/activity tolerance, gait, locom otion, and balance, integumentary integrity, joint integrity and mobility, motor function, m uscle performance, neuromotor, posture, ROM, reflex integrity, sensory integration/regulatio n, social dynamics, ventilation and respiration/gas exchange, HEP. RN cleared patient for participation in therapy. Patient was agreeable to therapy. Patient participated without adverse reaction. RN debriefed on therapy session and patient status. P atient is encouraged to ambulate into hallway with nursing staff. It is encouraged that the patient be up in chair for all meals. Recommended mobility with nursing: Day Night into the hallway into the bathroom Front Wheel Walker Front Wheel Walker minimum assistance and verbal cues and tactile cues minimum assistance and verbal cues and tactile cues Barriers to discharge and functional limitations include decreased insight into safety and deficits, decreased functional activity tolerance, decreased bed mobility, decreased functio nal transfers, decreased functional gait distance, decreased gait velocity, stairs at home, not yet able to mobilize at level safe for home discharge, and medical status. Demond will benefit from therapeutic intervention to address impairments and increase safety and independence with activities necessary for safe discharge. Refer below for specific de tails regarding functional levels. Precautions/Limitations: falls, right posterior hip precautions Right Lower Extremity Weight-Bearing: weight-bearing as tolerated Previous Level of Function: Transferring: independent Ambulation: independent Toileting: independent Bathing: independent Dressing: independent Eating: independent Communication: understands/communicates without difficulty Swallowin-->swallows foods/liquids without difficulty Equipment Currently Used at Home: none Prior Functional Level Comment: Pt was independent with mobility without A.D. Potential available assistance at discharge: Living Environment/Accessibility: Lives With: spouse Living Arrangements: house Home Accessibility: stairs (2 railings present) Financial Concerns: none Transportation Available: family or friend will provide Patient/Family s Goals: return to PLOF Rehabilitation potential: good, to achieve stated therapy goals Physical Therapy Discharge Recommendations are: Recommended discharge disposition: home with assist Post discharge physical therapy recommendation: will benefit from structured setting, ongo ing low intensity therapy, outpatient therapy, family involved/supportive, pt is motivated p articipant Equipment Recommendations: (has FWW) Planned Interventions: balance training, bed mobility training, gait training, home exerci se program, joint mobilization, manual therapy techniques, motor coordination training, neur omuscular re-education, orthotic fitting/training, patient/family education, postural re-edu cation, beninese ball techniques, stretching, strengthening, stair training, ROM (Range of Fidel on), transfer training Recommended Frequency: (1-2x/day ORTHO) Patient Status/Goals: Reflects last filed data and may be from multiple contributors. Gait fww at slow pace Level of Jay: minimal assist (75% patient effort) Assistive Device: 2 wheeled walker (FWW) Distance (feet): 25 ft x 2 Gait Pattern Analysis: 3-point gait Transfers increased time and effort, cues for hand placement and to use surgical leg. kicks leg out i n front during sitting to adhere to prec. Bed-Chair, Level of Jay: minimal assist (75% patient effort) Chair-Bed, Level of Jay: minimal assist (75% patient effort) Kde-Saujk-Hcy, Assistive Device: 2 wheeled walker (FWW) Sit-Stand, Level of Jay: minimal assist (75% patient effort) Stand-Sit, Level of Jay: minimal assist (75% patient effort) Xbn-Usmka-Kso, Assistive Device: 2 wheeled walker (FWW) Bed Mobility Assistive Device: bed rails, HOB elevated Supine to Sit, Level of Jay: minimal assist (75% patient effort) Sit to Supine, Level of Jay: minimal assist (75% patient effort) Safety Issues: decreased use of legs for bridging/pushing Balance fair Functional Endurance fair ROM R posterior hip prec ROM Testing Results: no range of motion deficits identified Strength R posterior hip prec PT Goal Review Date Most Recent Value STG Review Date 07/21/19 at 07/14/2019 0845 Bynepm-Jmd-Ihuxre Goal Most Recent Value STG Status new at 07/14/2019 0845 STG Jay Level minimum assist (75% patient effort) at 07/14/2019 0845 STG Assistive Device bed rails, HOB elevated at 07/14/2019 0845 Lut-Fcbvr-Bkf Goal Most Recent Value STG Status new at 07/14/2019 0845 STG Jay Level modified independent, minimum assist (75% patient effort) at 2019 0845 STG Assistive Device 2 wheeled walker (FWW) at 07/14/2019 0845 Glk-Zuhav-Trm Goal Most Recent Value STG Status new at 07/14/2019 0845 STG Jay Level minimum assist (75% patient effort) at 07/14/2019 0845 STG Assistive Device 2 wheeled walker (FWW) at 07/14/2019 0845 Gait Goal Most Recent Value STG Status new at 07/14/2019 0845 STG Jay Level supervised at 07/14/2019 0845 STG Assistive Device 2 wheeled walker (FWW) at 07/14/2019 0845 STG Distance (feet) 50 at 07/14/2019 0845 PT Time Calculation Individual Start Time: 0845 Individual Stop Time: 0925 Individual Total Time: 40 PT Total Treatment Time: 40 Timed TX Code Minutes: 25 Electronically signed by: Jerome Duff, PT, 07/14/2019 11:59 AM lan of Vivien - Clarisse Lakhani RN - 07/14/2019 6:21 AM PSTPt unable to void this shift. Bladder scan for 395. Pt denies any di scomfort. Multiple straight cath attempts unsuccessful by multiple different nurses. Dr. Nito hendricks notified - stated he will contact urology and follow up. lan Clarisse Munson RN - 07/14/2019 2:34 AM PSTA&Ox4, CMS intact however the block to the RLE remains in effect, VSS however pt runs tachy at times (HR reg), drsg to R hip is CDI, R dorsi/plantar strong, abductor pillow in place, lungs clear on 2L O2 via NC, denies SOB, bowel tones hypoactive x4 (last BM 2-17-2 0), c/o intermittent n/v (medicated w/PRN IV Benadryl), IVF + ABX maintained, calls appropri ately and is able to make needs known. He denied the presence of pain this shift - he is receiving jenae Tylenol 650 mg. Purposeful rounding performed, will continue to monitor. lan of Care - Jacy Mcginnis RN - 07/13/2019 8:01 PM PSTHe arrived on surgical floor at 1828. He is disoriented to time and place. Em esis x 2 after moving him in bed. Calm and cooperative. HRR & LSC on 2 Liters of oxygen. B owel tones hypoactive, last BM reported 07/12. Due to void, unable to place sherman during zachary mere (Per PACU nurse). Mobility not tested. Bedside swallow completed, takes pills whole w ith water. Denies pain. Dressing to right hip is clean, dry and intact with abductor josue w in place. Weak palpated posterior tibial and dorsalis pedis bilaterally. Feet are cool to touch, able to wiggle toes with right moderate dorsi plantar. Block in place to right le g. Bare hugger placed for comfort, pt educated on use of call light, bed alarm in place for safety. Vitals stable. Will continue to monitor. Problem: Adult Inpatient Plan of Care Goal: Plan of Care Review 07/13/20191999 by Jacy Mcginnis RN Outcome: Ongoing, progressing Goal: Absence of Hospital-Acquired Illness or Injury Outcome: Ongoing, progressing Problem: Bleeding (Surgery Nonspecified) Goal: Absence of Bleeding Outcome: Ongoing, progressing Problem: Ongoing Anesthesia Effects (Surgery Nonspecified) Goal: Anesthesia/Sedation Recovery Outcome: Ongoing, progressing Problem: Pain (Surgery Nonspecified) Goal: Acceptable Pain Control Outcome: Ongoing, progressing Problem: Postoperative Nausea and Vomiting (Surgery Nonspecified) Goal: Nausea and Vomiting Relief Outcome: Ongoing, progressing p Note - Maxi Luther MD - 07/13/2019 5:09 PM PSTTotal Hip Arthroplasty Operative Report Indications: Demond Castaneda is s/p right hip hemiarthoplasty a few years ago with chron ic pain ever since. He reports his symptoms are limiting function. After failing reasonable conservative measures, Demond Castaneda elects to proceed with surgical treatment with rev ision of the hemiarthroplasty to total hip arthroplasty. Risk and benefits were discussed. Consent was obtained in the clinic. Pre-operative Diagnosis: Painful right hip hemiarthroplasty Post-operative Diagnosis: Loose stem of right hip hemiarthroplasty Procedure: Revision of right hip hemiarthroplasty to total hip arthroplasty Approach: Posterolateral Anasthesia: @ORANES@ Anesthesiologist: Sergio Alonso MD Surgeon: Maxi Zamora MD Attending Attestation: I was present and scrubbed for the entire procedure. Educational Recruiter: LISBETH Reese. Note the sales operations assistant was necessary in performing th is procedure. Findings: Loose femoral stem. Scuffing of the acetabular cartilage. No evidence of infectio n. Estimated Blood Loss: 400 mL Drains: none Specimens: cultures to micro Implants: [employer] Echo cemented femoral stem size 15 with a +12/36 CoCr head. [employer] G7 acetabular shell size 56 mm with a non-lipped liner. ROM: leg lengthening less than 0.5 cm based on down leg technique and intra-operative radio graph. Stable to flexion internal rotation to 60 degrees. Stable in sleeping position. No impingement with extension and external rotation. Complications: none Procedure Details Demond Castaneda was seen in the preoperative area. Surgical site was marked and identifi ed. Appropriate antibiotic prophylaxis was given. The patient was taken to the operating ernesto m where successful @ORANES@ was performed. Patient was then positioned into the lateral dec ubitus position. The right hip area was then prepped and draped in the usual sterile fashio n. Tranexamic acid 1 g was given IV. Posterolateral approach to the hip was made to gain acc ess to the hip joint. The scarred short external rotator and posterior capsule sleeve were r eflected off the posterior greater trochanter prior to dislocation. Abundant scar tissue was excised. The femoral head and neck segment were disimpacted and removed. We proceeded to clear bone from around the proximal aspect of the stem and once this was do ne, we found the stem was loose. We extracted the stem without difficulty and there was no e vidence of ongrowth of any bone. Acetabular retractor was then positioned. The acetabulum wa s gradually enlarged with sequential reaming until bleeding bone was encountered. A trial de vice was then positioned followed by placement of the final shell and trial liner. Femoral canal was identified and we broke through the pedestal of sclerotic bone. The canal was sequentially reamed and then gradually enlarged with sequential broaching until proxima l fit was achieved. Trialing at this time demonstrated good soft tissue tension without ove r lengthening of the operative leg. Stability was achieved with flexion and internal rotati on. There was no impingement with extension and external rotation. Patient was stable in s leeping position. A cross-table AP pelvis film confirmed good component position. Trial components were removed. Acetabular fixation was enhanced with three screws, all with good purchase. Articular liner was locked into the acetabular component and was confirmed to be seated flush. The femoral canal was scraped with curved curettes to break through area s of sclerotic bone to allow for better cement interdigitation. The canal was sounded and plugged. The cement was mixed with vancomycin and injected retrog rade in the canal which had been lavaged, brushed and dried. The femoral stem was inserted w ith excellent stability. Trialing again showed the +12 head was appropriate, was selected an d placed on the clean and dry trunnion. Hip was gently reduced. Hip was thoroughly irrigated with saline. Tranexamic acid 500 mg was administered IV. Posterior capsule, short external rotator was repaired to the posterior aspect of the trochanter through drill holes using a # 5 Ethibond suture. The fascia was then closed with interrupted suture followed by layered cl osure of subcutaneous tissue with 2-0 Vicryl and staple closure of the skin. Pain cocktail w as injected subcutaneously and deep. The patient tolerated the procedure without any difficu lty. Subsequently transferred to postanesthesia care unit in stable condition. POSTOPERATIVE PLAN: The patient will be allowed to weight bear as tolerated, ambulate with assistive device. Deep venous thrombosis prophylaxis using combination of mechanical and pha rmacologic means. Antibiotic prophylaxis for 24 hours. documented in this enc ounter Plan of Treatment +--------+---------+ + + + | Date | Type | Specialty | Care Team | Description | +--------+---------+ + + + | 02/01/ | Office | Cardiology | Jazlyn Almeida, | | | 2019 | Visit | | [address] | | | | | | [place] | | | | | | [address] | | | | | | | | +--------+---------+ + + + + +------+--------+ + + | Name | Type | Priori | Associated Diagnoses | Order Schedule | | | | ty | | | + +------+--------+ + + | DME: Walker | DME | Routin | Status post total | DME 1 Time for 1 | | | | e | replacement of right | Occurrences starting | | | | | hip | 07/14/2019 until | | | | | | 07/14/2019 | + +------+--------+ + + + + +--------+ + + | Name | Type | Priori | Associated Diagnoses | Order Schedule | | | | ty | | | + + +--------+ + + | Referral to Home | Outpatient | Routin | Urinary retention | Ordered: 07/16/2019 | | Health - OUTPATIENT | Referral | e | Status post total | | | | | | replacement of right | | | | | | hip Sherman catheter | | | | | | in place | | + + +--------+ + + documented as of this encounter Procedures + +--------+ + + + | Procedure Name | Priori | Date/Time | Associated Diagnosis | Comments | | | ty | | | | + +--------+ + + + | HEMATOCRIT | STAT | 07/16/2019 | | Results for this | | | | 8:14 AM | | procedure are in the | | | | PST | | results section. | + +--------+ + + + | TRANSFUSE 2 UNITS | Routin | 07/15/2019 | | | | RED BLOOD CELLS | e | 2:23 PM | | | | | | PST | | | + +--------+ + + + | PRODUCT: RBC | Routin | 07/15/2019 | | Results for this | | | e | 10:56 AM | | procedure are in the | | | | PST | | results section. | + +--------+ + + + | TRANSFUSE 2 UNITS | Routin | 07/15/2019 | | | | RED BLOOD CELLS | e | 9:14 AM | | | | | | PST | | | + +--------+ + + + | ECG 12 LEAD | STAT | 07/15/2019 | | Results for this | | | | 5:51 AM | | procedure are in the | | | | PST | | results section. | + +--------+ + + + | EXTRA GREEN TOP TUBE | Routin | 07/15/2019 | | Results for this | | | e | 5:12 AM | | procedure are in the | | | | PST | | results section. | + +--------+ + + + | HEMOGLOBIN AND | Routin | 07/15/2019 | | Results for this | | HEMATOCRIT | e | 5:12 AM | | procedure are in the | | | | PST | | results section. | + +--------+ + + + | EXTRA GREEN TOP TUBE | Routin | 07/14/2019 | | Results for this | | | e | 5:24 AM | | procedure are in the | | | | PST | | results section. | + +--------+ + + + | HEMOGLOBIN AND | Routin | 07/14/2019 | | Results for this | | HEMATOCRIT | e | 5:24 AM | | procedure are in the | | | | PST | | results section. | + +--------+ + + + | XR PELVIS 1 OR 2 VW | STAT | 07/13/2019 | | Results for this | | | | 5:47 PM | | procedure are in the [...] | + +--------+ + + + | CULTURE, WOUND, | STAT | 07/13/2019 | | Results for this | | SMEAR | | 3:03 PM | | procedure are in the | | | | PST | | results section. | + +--------+ + + + | CULTURE, WOUND, | STAT | 07/13/2019 | | Results for this | | SMEAR | | 3:03 PM | | procedure are in the | | | | PST | | results section. | + +--------+ + + + | CULTURE, ANAEROBIC | STAT | 07/13/2019 | | Results for this | | | | 3:03 PM | | procedure are in the | | | | PST | | results section. | + +--------+ + + + | ARTHROPLASTY | | 07/13/2019 | Mechanical | | | REVISION TOTAL HIP | | 2:17 PM | loosening of | | | | | PST | internal right hip | | | | | | prosthetic joint, | | | | | | initial encounter | | | | | | (HCC) | | + +--------+ + + + +---+--------+ | | | | | Specia | | | l | | | Needs | | | | | | Law | | | Total | | | Hip | | | Set | +---+--------+ + +--------+ +---+ + | EXTRA LAVENDER TOP | Routin | 07/13/2019 | | Results for this | | TUBE | e | 12:58 PM | | procedure are in the | | | | PST | | results section. | + +--------+ +---+ + | TYPE AND SCREEN | Routin | 07/13/2019 | | Results for this | | | e | 12:54 PM | | procedure are in the | | | | PST | | results section. | + +--------+ +---+ + | LABS - EXTERNAL SCAN | | 06/17/2019 | | Results for this | | | | 12:00 AM | | procedure are in the | | | | PST | | results section. | + +--------+ +---+ + | ECG - EXTERNAL SCAN | | 06/17/2019 | | Results for this | | | | 12:00 AM | | procedure are in the | | | | PST | | results section. | + +--------+ +---+ + documented in this encounter Results Hematocrit (07/16/2019 8:14 AM PST) + + + + + + | Component | Value | Ref Range | Performed | Pathologist | | | | | At | Signature | + + + + + + | Hematocrit | 26.0 (L) | 40.0 - 51.0 % | [...] | + + + + + | [facility] | [address] | [place] | [phone] | | [facility] | | [address] | | | - LABORATORY | | | | + + + + + Red Blood Cells (PRBC) - Crossmatch (07/15/2019 10:56 AM PST) + + + + + + | Component | Value | Ref Range | Performed | Pathologist | | | | | At | Signature | + + + + + + | Product | [id number] | | [facility] | | | Code | | | [facility] | | | | | | [facility] | | | | | | CENTER - | | | | | | BLOOD BANK | | + + + + + + | UNIT # | [id number] | | [facility] | | | | [...] + + + | Unit Status | Issued | | [facility] | | | | | [facility] | | | | | [facility] | | | | | | CENTER - | | | | | | BLOOD BANK | | + + + + + + | Blood | OPOS | | [facility] | | | Product | | | [facility] | | | [facility] | | | MEDICAL | | | | | | CENTER - | | | | | | BLOOD BANK | | + + + + + + | Blood | [id number] | | [facility] | | | Product | | | [facility] | | | Expiration | | | MEDICAL | | | Date and | | | CENTER - | | | Time | | | BLOOD BANK | | + + + + + + | Product | [id number] | | [facility] | | | Blood Type | | | [facility] | | | Barcode | | | MEDICAL | | | | | | CENTER - | | | | | | BLOOD BANK | | + + + + + + | Product | [id number] | | [facility] | | | Code | | | [facility] | | | | | | [facility]ICAL | | | | | | CENTER - | | | | | | BLOOD BANK | | + + + + + + | UNIT # | [id number] | | [facility] | | | | [...] + + + | Unit Status | Issued | | [facility] | | | | | | [facility] | | | | | | MEDICAL | | | | | | CENTER - | | | | | | BLOOD BANK | | + + + + + + | Blood | OPOS | | [facility] | | | Product | | | [facility] | | | [facility] | | | MEDICAL | | | | | | CENTER - | | | | | | BLOOD BANK | | + + + + + + | Blood | [id number] | | [facility] | | | Product | | | [facility] | | | Expiration | | | MEDICAL | | | Date and | | | CENTER - | | | Time | | | BLOOD BANK | | + + + + + + | Product | [id number] | | [facility] | | | Blood Type | | | [facility] | | | Barcode | | | MEDICAL | | | [...] + | [facility] | [address] | [place] | | | [facility] | | [address] | | | - BLOOD BANK | | | | + + + + + ECG 12 lead (07/15/2019 5:51 AM PST) + + + + + + | Component | Value | Ref Range | Performed | Pathologist | | | | | At | Signature | + + + + + + | VENTRICULAR | 78 | BPM | [facility] | | | RATE EKG | | | | | + + + + + + | ATRIAL RATE | 78 | BPM | [facility] | | + + + + + + | P-R | 182 | ms | [facility] | | | INTERVAL | | | | | + + + + + + | QRS | 152 | ms | [facility] | | | DURATION | | | | | + + + + + + | Q-T | 410 | ms | [facility] | | | INTERVAL | | | | | + + + + + + | Q-T | 467 | ms | [facility] | | | INTERVAL | | | | | | (CORRECTED) | | | | | + + + + + + | P WAVE AXIS | 71 | degrees | [facility] | | + + + + + + | T AXIS | 84 | degrees | [facility] | | + + + + + + | INTERPRETAT | Normal sinus rhythmRight | | [facility] | | | ION TEXT | bundle branch | | | | | | blockPossible Lateral | | | | | | infarct , age | | | | | | undeterminedAbnormal | | | | | | ECGWhen compared with | | | | | | ECG of 16-NOV-2015 | | | | | | 12:56,Right bundle | | | | | | 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 | | | | | | MEDICAL [...] + + | [facility] | [address] | [place] | [phone] | | [facility] | | [address] | | | - LABORATORY | | | | + + + + + Hemoglobin and Hematocrit (07/15/2019 5:12 AM PST) + + + + + + | Component | Value | Ref Range | Performed | Pathologist | | | | | At | Signature | + + + + + + | Hematocrit | 17.9 (LL)Comment: | 40.0 - 51.0 % | [facility] | | | | Critical Result called | | [facility] | | | | to and read back by | | MEDICAL | | | | Clarisse Lakhani RN on | | CENTER - | | | | 07/15/2019 at 6:02 AM by | | LABORATORY | | | | Digna Ashraf. | | | | + + + + + + | Hemoglobin | 5.9 (LL)Comment: | 13.5 - 18.0 | [facility] | | | | Critical Result called | g/dL | [facility] | | | | to and read back by | | MEDICAL | | | | Clarisse Lakhani RN on | | CENTER - | | | | 07/15/2019 at 6:02 AM by | | LABORATORY | | | | Digna Ashraf. | | | | + + + + + + + + | Specimen | + + | Blood | + + + + + + + | Performing | Address | City/State/Zipcode | Phone Number | | Organization | | | | + + + + + | [facility] | [address] | [place] | [phone] | | [facility] | | [address] | | | - LABORATORY | | | | + + + + + Extra Green Top Tube (07/14/2019 5:24 AM PST) + +-------+ + + + | Component | Value | Ref Range | Performed | Pathologist | | | | | At | Signature | + +-------+ + + + | Extra Green | Done | | [facility] | | | Top Tube | | | [facility] | | [...] + | [facility] | [address] | [place] | [phone] | | [facility] | | [address] | | | - LABORATORY | | | | + + + + + Hemoglobin and Hematocrit (07/14/2019 5:24 AM PST) + + + + + + | Component | Value | Ref Range | Performed | Pathologist | | | | | At | Signature | + + + + + + | Hematocrit | 24.7 (L) | 40.0 - 51.0 % | [facility] | | | | | | [facility] | | | | | | MEDICAL | | | | | | CENTER - | | | | | | LABORATORY | | + + + + + + | Hemoglobin | 7.9 (L) | 13.5 - 18.0 | [facility] | | | | | g/dL | [facility] | | | | | | [...] [address] | [place] | [phone] | | [facility] | | [address] | | | - LABORATORY | | | | + + + + + XR Pelvis 1 or 2 Vw (07/13/2019 5:47 PM PST) + + | Specimen | + + | | + + + + + | Impressions | Performed At | + + + | Interval right hip arthroplasty. Dictated and Signed by: Aj Holland [facility] | | MD Myles Electronically signed: 07/13/2019 6:06 PM | | + + + + + + | Narrative | Performed At | + + + | XR PELVIS 1 OR 2 VW 07/13/2019 5:46 PM HISTORY: post op. | [facility] | | COMPARISON: Multiple priors. FINDINGS: There has been interval | | | placement of hardware for right hip arthroplasty that is intact. | | | Postoperative changes are seen in the proximal thigh that include gas | | | and khang. ORIF screws are seen of the left femoral neck. There are | | | mild degenerative changes of the left hip. Mild lumbar spondylosis | | | is seen. Bone mineralization is decreased. Prostate brachytherapy | | | seeds are visualized. | | + + + + + | Procedure Note | + + | Jhon, Rad Results In - 07/13/2019 6:09 PM PST XR PELVIS 1 OR 2 VW 07/13/2019 5:46 PM | | | | HISTORY: post op. | | | | COMPARISON: Multiple priors. | | | | FINDINGS: | | There has been interval placement of hardware for right hip arthroplasty that is | | intact. Postoperative changes are seen in the proximal thigh that include gas | | and khang. ORIF screws are seen of the left femoral neck. There are mild | | degenerative changes of the left hip. Mild lumbar spondylosis is seen. Bone | | mineralization is decreased. Prostate brachytherapy seeds are visualized. | | | | IMPRESSION: | | Interval right hip arthroplasty. | | | | Dictated and Signed by: Aj Bueno MD | | Electronically signed: 07/13/2019 6:06 PM | + + + +---------+ + + | Performing | Address | City/State/Zipcode | Phone Number | | Organization | | | | + +---------+ + + | [facility] | | | | + +---------+ + + XR Pelvis 1 or 2 Vw (07/13/2019 [...] | | | + +---------+ + + Culture, Anaerobic (07/13/2019 3:03 PM PST) + + + + + + | Component | Value | Ref Range | Performed | Pathologist | | | | | At | Signature | + + + + + + | Culture | No anaerobes isolated. | | [facility] | | | | | | [facility] | | | [facility] | [facility] | | | | | | CENTER - | | | | | | LABORATORY | | + + + + + + + + | Specimen | + + | Tissue - Entire | | right hip region | | (body structure) | + + + + + + + | Performing | Address | City/State/Zipcode | Phone Number | | Organization | | | | + + + + + | [facility] | [address] | [place] | [phone] | | [facility] | | [address] | | | - LABORATORY | | | | + + + + + Culture, Wound, Smear (07/13/2019 3:03 PM PST) + + + + + + | Component | Value | Ref Range | Performed | Pathologist | | | | | At | Signature | + + + + + + | Culture | No growth to date | | [facility] | | | | | | [facility] | | | | | | MEDICAL | | | | | | CENTER - | | | | | | LABORATORY | | + + + + + + | Gram Stain | 1+ White Blood Cells | | [facility] | | | Result | | | [facility] | | | | | | MEDICAL | | | | | | CENTER - | | | | | | LABORATORY | | + + + + + + | Gram Stain | No organisms | | [facility] | | | Result | seenComment: qc ok tl. | | [facility] | | | | | | MEDICAL | | | | | | CENTER - | | | | | | LABORATORY | | + + + + + + + + | Specimen | + + | Tissue - Entire | | right hip region | | (body structure) | + + + + + + + | Performing | Address | City/State/Zipcode | Phone Number | | Organization | | | | + + + + + | [facility] | [address] | [place] | [phone] | | [facility] | | [address] | | | - LABORATORY | | | | + + + + + Extra Lavender Top Tube (07/13/2019 12:58 PM PST) + +-------+ + + + | Component | Value | Ref Range | Performed | Pathologist | | | | | At | Signature | + +-------+ + + + | Extra | Done | | [facility] | | | Lavender | | | [facility] | | | Top Tube | | | MEDICAL | | | [...] [address] | [place] | [phone] | | [facility] | | [address] | | | - LABORATORY | | | | + + + + + Type and Screen (07/13/2019 12:54 PM PST) + + + + + [...] | | [facility] | | [address] | | | - BLOOD BANK | | | | + + + + + LABS - EXTERNAL SCAN (06/17/2019 12:00 AM PST) + + + | Narrative | Performed At | + + + | Ordered by an | | | unspecified provider. | | + + + ECG - EXTERNAL SCAN (06/17/2019 12:00 AM PST) + + + | Narrative | Performed At | + + + | Ordered by an | | | unspecified provider. | | + + + documented in this encounter Visit Diagnoses + + | Diagnosis | + + | Mechanical loosening of internal right hip prosthetic joint, initial encounter (HCC) | + + documented in this encounter Administered Medications + +--------+ +--------+------+------+ | Medication Order | MAR | Action | Dose | Rate | Site | | | Action | Date | | | | + +--------+ +--------+------+------+ | acetaminophen (TYLENOL) tablet | Given | 07/16/19 | 650 mg | | | | 650 mg 650 mg, Oral, EVERY 6 | | 20 8:34 | | | | | HOURS (4 times per day), First | | AM PST | | | | | dose on Fri07/13/19 at 1845, | | | | | | | Post-op/Phase II | | | | | | + +--------+ +--------+------+------+ +-------+ +--------+---+---+ | Given | 07/16/19 | 650 mg | | | | | 20 3:57 | | | | | | AM PST | | | | +-------+ +--------+---+---+ | Given | 07/15/19 | 650 mg | | | | | 20 10:11 | | | | | | PM PST | | | | +-------+ +--------+---+---+ +---+---+ | | | +---+---+ + +-------+ +-------+---+---+ | aspirin EC tablet 81 mg 81 mg, | Given | 07/16/19 | 81 mg | | | | Oral, 2 TIMES DAILY, First dose | | 20 8:34 | | | | | on Fri07/14/19 at 0900, Do not | | AM PST | | | | | cut or crush Give first dose | | | | | | | within 20 hours of surgery end | | | | | | | time. Nursing/Pharmacy to retime | | | | | | | first dose to 1900 for surgeries | | | | | | | ending between 2200 and 0900., | | | | | | | Post-op/Phase II | | | | | | + +-------+ +-------+---+---+ +-------+ +-------+---+---+ | Given | 07/15/19 | 81 mg | | | | | 20 8:29 | | | | | | PM PST | | | | +-------+ +-------+---+---+ | Given | 07/15/19 | 81 mg | | | | | 20 9:25 | | | | | | AM PST | | | | +-------+ +-------+---+---+ +---+---+ | | | +---+---+ + +-------+ +-------+---+---+ | atorvaSTATin (LIPITOR) tablet | Given | 07/15/19 | 20 mg | | | | 20 mg 20 mg, Oral, NIGHTLY, | | 20 8:29 | | | | | First dose on e 07/13/19 at | | PM PST | | | | | 2100, Post-op/Phase II | | | | | | + +-------+ +-------+---+---+ +-------+ +-------+---+---+ | Given | 07/14/19 | 20 mg | | | | | 20 8:18 | | | | | | PM PST | | | | +-------+ +-------+---+---+ | Given | 07/13/19 | 20 mg | | | | | 20 9:33 | | | | | | PM PST | | | | +-------+ +-------+---+---+ +---+---+ | | | +---+---+ + +-------+ +--------+---+---+ | bupivacaine 0.25%-EPINEPHrine | Given | 07/13/19 | 20 mLs | | | | 1:200,000 (PF) injection PRN, | | 20 5:36 | | | | | Starting Fri07/13/19 at 1736, | | PM PST | | | | | Intra-op | | | | | | + +-------+ +--------+---+---+ + +---+ | | | + +---+ | diphenhydrAMINE (BENADRYL) 12.5 | | | mg/5 mL liquid 25 mg 25 mg, | | | Oral, EVERY 4 HOURS PRN, Itching, | | | Starting 07/13/19 at 1828, | | | Oral route is preferred., | | | Post-op/Phase II | | + +---+ | | | + +---+ + +-------+ +---------+---+---+ | diphenhydrAMINE (BENADRYL) | Given | 07/13/19 | 12.5 mg | | | | injection 12.5 mg 12.5 mg, | | 20 9:40 | | | | | Intravenous, EVERY 4 HOURS PRN, | | PM PST | | | | | Itching, Starting 07/13/19 at | | | | | | | 1828, Oral route is preferred., | | | | | | | Post-op/Phase II | | | | | | + +-------+ +---------+---+---+ + +---+ | | | + +---+ | diphenhydrAMINE (BENADRYL) | | | tablet 25 mg 25 mg, Oral, EVERY | | | 4 HOURS PRN, Itching, Starting | | | Fri07/13/19 at 1828, Oral route | | | is preferred., Post-op/Phase II | | + +---+ | | | + +---+ + +-------+ +--------+---+---+ | docusate sodium (COLACE) | Given | 07/16/19 | 100 mg | | | | capsule 100 mg 100 mg, Oral, 8:34 | | | | | TIMES DAILY, First dose on Fri | | AM PST | | | | | 07/13/19 at 2100, First line agent | | | | | | | for constipation, Post-op/Phase | | | | | | | II | | | | | | + +-------+ +--------+---+---+ +-------+ +--------+---+---+ | Given | 07/15/19 | 100 mg | | | | | 20 8:29 | | | | | | PM PST | | | | +-------+ +--------+---+---+ | Given | 07/15/19 | 100 mg | | | | | 20 9:25 | | | | | | AM [...] | | +---+---+ + +-------+ +--------+---+---+ | senna (SENOKOT) tablet 8.6 mg | Given | 07/16/19 | 8.6 mg | | | | 8.6 mg, Oral, 2 TIMES DAILY, | | 20 8:34 | | | | | First dose on Fri07/13/19 at | | AM PST | | | | | 2100, If docusate ineffective or | | | | | | | not ordered, Post-op/Phase II | | | | | | + +-------+ +--------+---+---+ +-------+ +--------+---+---+ | Given | 07/15/19 | 8.6 mg | | | | | 20 8:29 | | | | | | PM PST | | | | +-------+ +--------+---+---+ | Given | 07/15/19 | 8.6 mg | | | | | 20 9:25 | | | | | | AM PST | | | | +-------+ +--------+---+---+ +---+---+ | | | +---+---+ + +-------+ +-----+---+ + | vancomycin injection PRN, | Given | 07/13/19 | 2 g | | Hip-Righ | | Starting 07/13/19 at 1633, | | 20 4:33 | | | t | | Intra-op | | PM PST | | | | + +-------+ +-----+---+ + +---+---+ | | | +---+---+ documented in this encounter
--- OUTSIDE RECORDS SUMMARY | ~2019-12-09 | XMS | Encounter Summary ---
Demographics + + + | Address | [address] | | | [place] [address] | + + + | Home Phone | | + + + | Preferred Language | Unknown | + + + | Marital Status | | + + + | Pentecostalism Affiliation | 1041 | + + + | Race | Unknown | + + + | Ethnic Group | Unknown | + + + Author + + + | Author | [facility] | | | and [place] | + + + | Organization | [facility] | | | and [place] | + + + | Address | Unknown | + + + | Phone | Unavailable | + + + Support + + + + + | Name | Relationship | Address | Phone | + + + + + | Lesia Castaneda | ECON | [address] | | | | | [place] [address] | | + + + + + | Rosina Castaneda | ECON | Unknown | | + + + + + | Sandy Zamora | ECON | [address] | | | | [place] | | | | | [address] | | + + + + + Care Team Providers + +------+ + | Care Childcare Aide Name | Role | Phone | + +------+ + | Sergio Thompson MD | PCP | | + +------+ + Encounter Details +--------+ + + + + | Date | Type | Department | Care Team | Description | +--------+ + + + + | 08/15/ | Hospital | [facility] | Demond Castellon | CA prostate, adenoca | | 2016 | Encounter | [facility] | MD [address] | (HCC) (Primary Dx); | | | | [facility] [address] | [facility] | Iron deficiency | | | | W [facility] | [place] [address] | anemia due to | | | | [place] [address] | [phone] | chronic blood loss; | | | | [phone] | | Cerebrovascular | | | | | | accident (CVA), | | | | | | unspecified (HCC); | | | | | | Gastrointestinal | | | | | | hemorrhage, | | | | | | unspecified | | | | | | gastrointestinal | | | | | | hemorrhage type; Low | | | | | | [...] + + + | Blood Pressure | 143/65 | 08/16/2015 10:37 AM | | | | | PDT | | + + + + + | Pulse | 62 | 08/16/2015 10:37 AM | | | | | PDT | | + + + + + | Temperature | 35.6 C (96.1 F) | 08/16/2015 10:37 AM | | | | | PDT | | + + + + + | Respiratory Rate | 16 | 08/16/2015 10:37 AM | | | | | PDT | | + + + + + | Oxygen Saturation | 99% | 08/16/2015 10:37 AM | | | | | PDT | | + + + + + | Inhaled Oxygen | - | - | | | Concentration | | | | + + + + + | Weight | 77.7 kg (171 lb 4.8 | 08/16/2015 10:37 AM | | | | oz) | PDT | | + + + + + | Height | - | - | | + + + + + | Body Mass Index | 22.6 | 07/25/2015 9:09 AM | | | [...] encounter Progress Notes Demond Castellon MD - 08/16/2015 11:25 AM PDTFormatting of this note might be diff erent from the original. Hem-Onc Progress Note [facility] Pt. Name/Age/: Demond Castaneda 84 y.o. 1930 Med. Record Number: [id number] Date of admission: 08/16/2015 Assessment and plan: 1. 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 Stroke, November, 3. Angina Pectoris, Dec, 2013, S/p PCI, [facility], [place] 4. GI bleeding with secondary worsening anemia Plans for bone marrow aspiration and biopsy outlined with patient. We will tentatively rep ort to patient via telephone but may request a return visit should more complex findings be identified. Subjective: The patient chart and medications were reviewed in detail and the patient was seen and exam ined. Demond Castaneda is a 84 y.o. 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 Patient subjectively feeling more in the way of symptoms referable to anemia including redu ction in endurance and ability to walk. He describes how previously he was able to walk up hills now becoming more difficult. He also experiences more in the way of leg aching. Ther e also been recent episodes of angina pectoris. PSH: Reviewed, no changes to admission H&P. [...] Sulfa Antibiotics Nausea And Vomiting Objectives: Temp: 35.6 C (96.1 F) BP: 143/65 mmHg Pulse: 62 Resp: 16 SpO2: 99 % on Min/Max Temp past 24 hours:Temp Av.6 C (96.1 F) Min: 35.6 C (96.1 F) Max: 3 5.6 C (96.1 F) No intake or output data in the 24 hours ending 08/16/15 1125 Wt. Admission: Weight: 77.7 kg (171 lb 4.8 oz) Wt. Current: Weight: 77.7 kg (171 lb 4.8 oz) Physical Exam: Exam: General: The patient is alert and oriented. No acute distress. HPsychiatric: Normal mood and affect. Diagnostic studies: Available data and images were reviewed personally. See reports. Significant results and findings are addressed here or in the Assessment and Plan. Recent Labs Lab 08/16/15 1019 WBC 4.6 HGB 10.0* HCT 29.4* PLT 167 Recent Labs Lab 08/16/15 1019 NA 142 K 3.8 CL 108 CO2 27 BUN 24* CREA 1.26 GLU 118* CALCIUM 9.3 BILITOT 3.7* AST 17 ALT 15 ALKPHOS 80 ALBUMIN 4.4 Microbiology Results (72 hrs) No results found for the last 72 hours. No results found. Electronically signed by: Demond Castellon, 08/16/2015 11:[address] [facility] TIME SPENT 20 MIN. > 50% AT BEDSIDE, WITH FAMILY/PATIENT IN CARE AND COMPUTER BUILDER ON UNIT AND CO ORDINATION OF CARE Portions of this chart may have been created with [employer] voice recognition software. Occasi onal wrong-word or sound-alike substitutions may have occurred due to the inherent epperson itations of voice recognition software. Please read the chart carefully and recognize, using context, where these substitutions have occurred. Natalya Paez CMA - 08/16/2015 10:43 AM PDTREVIEW OF SYSTEMS Constitutional: Denies fatigue. [...] Denies pain. Note: Pt is here for BMBX, went over consent and pt signed. Taking Plavix and aspirin. No c hanges from previous ROS. Knees are aching and no energy. My chart: documented in this encounter Procedure Notes Demond Castellon MD - 08/16/2015 11:27 AM PDTProcedure: Bone marrow aspiration and biopsy Preoperative diagnosis: Rule out myelodysplastic disorder Postoperative diagnosis: Same Following patient reidentification a right posterior-superior iliac crest bone marrow aspir ation and biopsy was performed using sterile technique and Xylocaine anesthesia. Marrow was aspirated and then a bone core biopsy obtained with the aid of twist drill. Procedure was very well tolerated with minimal blood loss. A dry dressing was then applied with instructions for patient to leave this dry for the nex t 48 hours. Telephone report has been scheduled Demond Castellon documented i bhupinder this encounter Plan of Treatment +--------+---------+ + + + | Date | Type | Specialty | Care Team | Description | +--------+---------+ + + + | 02/01/ | Office | Cardiology | Jazlyn Almeida, | | | 2019 | Visit | | MD Vikram RICARDO | | | | | | [place] | | | | | | [address] | | | | | | | | +--------+---------+ + + + documented as of this encounter Procedures + +--------+ + + + | Procedure Name | Priori | Date/Time | Associated Diagnosis | Comments | | | ty | | | | + +--------+ + + + | EXTRA GREEN TOP TUBE | Routin | 08/16/2015 | CA prostate, | Results for this | | | e | 10:41 AM | adenoca (HCC) | procedure are in the | | | | PDT | | results section. | + +--------+ + + + | IRON AND TRANSFERRIN | Add-On | 08/16/2015 | Iron deficiency | Results for this | | | | 10:26 AM | anemia due to | procedure are in the | | | | PDT | chronic blood loss | results section. | + +--------+ + + + | PSA, DIAGNOSTIC | Add-On | 08/16/2015 | CA prostate, | Results for this | | | | 10:26 AM | adenoca (HCC) | procedure are in the | | | | PDT | | results section. | + +--------+ + + + | FERRITIN | Add-On | 08/16/2015 | Iron deficiency | Results for this | | | | 10:26 AM | anemia due to | procedure are in the | | | | PDT | chronic blood loss | results section. | + +--------+ + + + | CBC WITH | STAT | 08/16/2015 | CA prostate, | Results for this | | DIFFERENTIAL | | 10:19 AM | adenoca (HCC) | procedure are in the | | | | PDT | | results section. | + +--------+ + + + | COMPREHENSIVE | STAT | 08/16/2015 | CA prostate, | Results for this | | METABOLIC PANEL | | 10:19 AM | adenoca (HCC) | procedure are in the | | | | PDT | | results section. | + +--------+ + + + | PATHOLOGY BONE | Routin | 08/16/2015 | | Results for this | | MARROW BIOPSY | e | 12:00 AM | | procedure are in the | | REQUEST | | PDT | | results section. | + +--------+ + + + documented in this encounter Results Extra Green Top Tube (08/16/2015 10:41 AM PDT) + +-------+ + + + [...] + | [facility] | [address] | [place] | [phone] | | [facility] | | [address] | | | - LABORATORY | | | | + + + + + PSA, Diagnostic (08/16/2015 10:26 AM PDT) + + + + + + | Component | Value | Ref Range | Performed | Pathologist | | | | | At | Signature | + + + + + + | PSA | 5.19 (H) | <=4.00 ng/mL | [facility] | [...] ST[facility] | [address] | [place], [place] | [phone] | | [facility] | | [address] | | | - LABORATORY | | | | + + + + + Ferritin (08/16/2015 10:26 AM PDT) + +-------+ + + + | Component | Value | Ref Range | Performed | Pathologist | | | | | At | Signature | + +-------+ + + + | FERRITIN | 175 | 24 - 366 ng/mL | [facility] | | | | [...] [address] | [place] | [phone] | | [facility] | | [address] | | | - LABORATORY | | [...] [address] | [place] | [phone] | | [facility] | | [address] | | | - LABORATORY | | [...] | 1.26 | 0.60 - 1.30 | [facility] | | | | | mg/dL | [facility] | | | | | | MEDICAL | | | | | | CENTER - | | | | | | LABORATORY | | + + + + + + | eGFR if not | 55 (L)Comment: | >=60 | [facility] | | | | GLOMERULAR FILTRATION | mL/min/1.73m2 | [facility] | | | [facility] | RATE,ESTIMATED | | MEDICAL | | | | mL/min/1.96r5Dqnw than | | CENTER - | | [...] 4.4 | 3.2 - 5.0 g/dL | [facility] | | | | | | [facility] | | | | | | MEDICAL | | | | | | CENTER - | | | | | | LABORATORY | | + + + + + + | Bilirubin | 3.7 (H) | 0.1 - 1.5 mg/dL | [facility] | | | Total | | | [...] [address] | [place] | [phone] | | [facility] | | [address] | | | - LABORATORY | | [...] ST. | [address] | [place] | [phone] | | [facility] | | [address] | | | - LABORATORY | | | | + + + + + Pathology Bone Marrow Biopsy Request (08/16/2015 12:00 AM PDT) + + | Specimen | + + | | + + + + + | Narrative | Performed At | + + + | SPECIMEN(S): A BONE MARROW - CORE SPECIMEN(S): B BONE MARROW - | [facility] | | ASPIRATION SPECIMEN(S): C COMPREHENSIVE FLOW CYTOMETRY ONLY | [facility] | | CLINICAL HISTORY: Anemia, iron deficiency. D64.9 (anemia, | | | unspecified) DIAGNOSIS SUMMARY: Peripheral blood - | | | Normochromic, normocytic anemia. Bone marrow, posterior iliac | | | crest, core biopsy and aspiration cell block: - Normocellular bone | | | marrow with erythroid hyperplasia and benign lymphoid aggregates. - | | | Increased iron stores. - Negative for metastatic carcinoma. | | | (see comment). DIAGNOSTIC COMMENT: The clinical diagnosis of | | | persistent anemia is noted. No dysplasia is noted involving any of the | | | cell lineages. The bone marrow shows a normocellular marrow with | | | erythroid hyperplasia as evidence by the M:E ratio of 0.6:1. The | | | erythroid cells comprise 48% of all nucleated cells. The iron stain | | | shows increase iron stores and no ringed sideroblasts. It is important | | | to note that anemia of chronic disease can have impaired utilization | | | of iron and show increase iron stores with normocytic or microcytic | | | anemia. However correlation with iron studies is required. Given the | | | history of prostatic cancer, a keratin immunostain (AE1/3) was | | | performed on the core biopsy and is negative. This case was discussed | | | with Dr. Castellon by Dr. Hyatt on 08/18/2015. SHH:smh:C2NR | | | PERIPHERAL BLOOD: HEMOGRAM (08/16/15): WBC 4.6 K/uL, RBC 3.03 M/uL, | | | HGB 10.0 g/dl, HCT 29.4%, MCV 97.0 fL, MCH 33.1 pg, MCHC 34.1 g/dl, | | | RDW 18.5%, PLT 167 K/uL. DIFFERENTIAL (manual): 80% segmented | | | neutrophils, 0% bands, 11% lymphocytes, 7% monocytes and 2% | | | eosinophils. The red blood cells are decreased but otherwise | | | normochromic normocytic with moderate anisopoikilocytosis. There is no | | | background rouleaux formation. There is no basophilic stippling or | | | cytoplasmic inclusions. The neutrophils are present and show normal | | | lobation and cytoplasmic granulation. The lymphocytes are both | | | mature with occasional reactive forms identified. The platelets | | | appear adequate in number with no platelet aggregates or clumping and | | | shows normal granulation. No circulating plasma cells are | | | identified. BONE MARROW: BONE MARROW ASPIRATE SMEAR: The | | | aspirate smear is well-spiculated and shows scattered hematopoietic | | | cells. Erythroid lineage is increased but shows hadoop analyst maturation. | | | The myeloid lineage is present with hadoop analyst maturation. The | | | megakaryocytes are scattered but otherwise shows normal morphology. | | | Blasts are not increased and dysplastic changes are not seen | | | involving any of the cell lineages. Lymphocytes are scattered, | | | increased, but otherwise shows normal morphology. Plasma cells are | | | rare and scattered and unremarkable in appearance. A 500 cell | | | differential yields the following: Blasts <1%, promyelocytes <1%, | | | myelocytes 6%, metamyelocytes 5%, bands 6%, segs 9%, eosinophils 2%, | | | monocytes 1%, lymphocytes 23%, nucleated red blood cells 48% for an | | | M:E ratio of 0.6:1. BONE MARROW CORE BIOPSY AND ASPIRATION CELL | | | BLOCK: A 1.8 cm decalcified core biopsy is available for review and | | | shows a normocellular bone (25%) for age of patient. Cellularity is | | | best estimated off the aspiration cell block. There is scattered | | | trilineage hematopoiesis. Erythroid lineage appears to be increased | | | but otherwise is unremarkable. Several well-circumscribed lymphoid | | | aggregates are identified composed of small ovoid lymphocytes. No | | | clusters of immature cells are noted. There is no evidence of marrow | | | fibrosis or granulomata. SPECIAL STAINS: - Iron stain | | | (aspirate smear, aspiration cell block): Shows increased iron stores, | | | no ringed sideroblasts. IMMUNOHISTOCHEMICAL STAIN: - AE1/3 | | | (gorman keratin) was performed on block A1 and is negative for | | | metastatic carcinoma. - CD3 (B1): stains the majority of the | | | lymphocytes includes within the aggregates - CD5 (B1): stains | | | the lymphocytes in a similar pattern as CD3 - CD20 (B1): stains | | | much fewer number of lymphocytes but similar distribution as CD3 and | | | CD5 - CD23 (B1) stains fewer scattered lymphocytes. - | | | CD71(B1): stains the erythroid precursors that predominant - | | | CD43 (B1): stain the T cells and some of the myeloid cells - | | | CD138(B1): stains the scattered plasma cells approximately 2-3% of | | | all cells - [place] KALIE (B1): stains the few plasma cells in a | | | polytypic pattern - Lambda KALIE (B1) stains the few plasma cell | | | in a polytypic pattern Controls are appropriately reactive. | | | [facility] FLOW CYTOMETRY: INTERPRETATION: Bone marrow, | | | aspiration, flow cytometric analysis: - No monoclonal B-cell, | | | aberrant T-cell or increased blast population identified. [facility] | | | FLOW CYTOMETRY ANALYSIS: FLOW DIFFERENTIAL (% Total | | | CD45 vs. SSC gating): Myeloid 79%; Lymphoid 12%; Monocyte 3%; Dim | | | CD45/Blast: 1%. Cell Count: 4.0 x 10*3/uL. POPULATION ANALYSIS: | | | BLASTS: Analysis of the dim CD45 gate demonstrates about 1% blasts by | | | CD34/CD117. LYMPHOID CELLS: The lymphocyte gate comprises 12% of | | | total events and includes 69% T-cells with a normal CD4:CD8 ratio of | | | 1.5:1 and normal gorman T-cell antigen expression. 17% of lymphocytes are | | | polyclonal B-cells with a kappa:lambda ratio of 1.1:1. The | | | remainders are NK-cells. MYELOID CELLS: The myeloid population | | | comprises 79% of the total events. No aberrant or immature | | | immunophenotypic expression is detected. MONOCYTES: The monocyte | | | population comprises 3% of the total events. Monocytes are not | | | increased. No aberrant immunophenotypic expression is detected. | | | PLASMA CELLS: About 0.2% plasma cells are detected by | | | neg-dimCD45/CD38. Plasma cells are CD45 dim and positive for CD19. | | | ANTIBODIES USED: KAPPA, LAMBDA, CD20, CD10, CD19, CD23, CD38, FMC7, | | | CD16, CD56, CD8, CD5, CD2, CD4, CD7, CD3, CD14, CD33, CD13, HLADR, | | | CD34, CD117, CD15, CD45: TOTAL ANTIBODIES USED: 24. TCS | | | ADDITIONAL NOTES: This test was developed and its performance | | | characteristics determined by [facility]. It has not been | | | cleared or approved by the US Food and Drug Administration. The FDA | | | does not require this test to go through premarket FDA review. This | | | test is used for clinical purposes. It should not be regarded as | | | investigational or for research. This laboratory is certified under | | | the Clinical Laboratory Improvement Amendments (CLIA) as qualified to | | | perform high complexity clinical laboratory testing. | | | PERFORMING LABORATORY: Tissue processing and slide preparation were | | | performed by [facility], [address] [facility] | | | [place] [address] (Measurer: Miguel Gomez D.O..; CLIA#: | | | [id number]). Professional interpretation was performed by [facility] | | | [facility], [address] [place] [address], [facility] [address], [place] [address] | | | (Measurer: Dmitriy Canales M.D.; CLIA#: [id number]). | | | FINAL DIAGNOSIS PERFORMED BY: Isacc Hyatt MD, Pathologist Mar | | | 2015 9:25AM CYTOGENETICS: CYTOGENETIC ANALYSIS | | | Result: 46,XY[20] Normal male karyotype | | | Interpretation: Twenty normal cells were observed. There was no | | | evidence of any clonal chromosome abnormality within the limits of | | | this study. Cytogenetic Analysis Summary: Number of Cells Imaged | | | and Analyzed: 20 Number of Cultures used for Analysis: 2 Number of | | | Karyograms: 4 Banding Level: 350-400 Extra Cells Analyzed /Scored: 0 | | | Banding Method: GTW/G The technical and professional components of | | | the cytogenetic analysis were performed at [facility], [place]. | | | ([place], [place], case # [id number]). Detailed report is kept on file. | | | GROSS DESCRIPTION: A. The specimen received in formalin labeled | | | with the patient's name and "bone marrow core" consists of multiple | | | grayish-brown fragments of bone measuring 0.5 cm in greatest aggregate | | | dimension. B. The specimen received in formalin labeled with the | | | patient's name and "bone marrow aspiration" consists of a | | | crescent-shaped fragment of clotted blood measuring 1.8 x 1.9 x 0.6 | | | cm, submitted in one cassette. [facility] ADDITIONAL NOTES: | | | Immunohistochemical studies were performed on this case with the | | | appropriate negative and positive controls that react as expected. | | | This test was developed and its performance characteristics | | | determined by [facility]. It has not been cleared or | | | approved by the U.S. Food and Drug Administration. The FDA has | | | determined that such clearance or approval is not necessary. This | | | test is used for clinical purposes. It should not be regarded as | | | investigational or for research. [facility] is certified | | | under the Clinical Laboratory Improvement Amendments of 1988 (CLIA) as | | | qualified to perform high complexity clinical laboratory testing. | | | In this case, certain antibodies were performed by both | | | immunohistochemistry and flow cytometry analysis because flow | | | cytometry analysis did not fully explain all the light microscopic | | | findings. Immunohistochemistry aided in the analysis. Both methods | | | are deemed medically necessary in this case. PERFORMING | | | LABORATORY: Tissue processing and slide preparation were performed by | | | [facility], [address], [place] [address] | | | (Measurer: Dmitriy Canales M.D. CLIA#: [id number]). | | | Professional interpretation was performed by [facility], | | | [facility], [address] [place] [address] | | | [place] [address] (Measurer: Isacc Hyatt M.D.; CLIA#: | | | [id number]). IMAGES: [id number]: [id number] A: | | | [id number] Diagnostician: Isacc Hyatt MD Pathologist | | | Electronically Signed 08/21/2015 | | + + + + +---------+ + + | Performing | Address | City/State/Zipcode | Phone Number | | Organization | | | | + +---------+ + + | [facility] | | | | | [facility] | | | | + +---------+ + + documented in this encounter Visit Diagnoses + + | Diagnosis | + + | CA prostate, adenoca (HCC) - Primary Malignant neoplasm of prostate | + + | Iron deficiency anemia due to chronic blood loss Iron deficiency anemia secondary to | | blood loss (chronic) | + + | Cerebrovascular accident (CVA), unspecified | + + | Gastrointestinal hemorrhage, unspecified gastrointestinal hemorrhage type | + + | Low hemoglobin Anemia, unspecified | + + documented in this encounter
--- OUTSIDE RECORDS SUMMARY | ~2019-12-09 | XMS | Encounter Summary ---
Demographics + + + | Address | [address] | | | [place] [address] | + + + | Home Phone | | + + + | Preferred Language | Unknown | + + + | Marital Status | | + + + | Gnosticist Affiliation | 1041 | + + + | Race | Unknown | + + + | Ethnic Group | Unknown | + + + Author + + + | Author | [facility] | | | and [place] | + + + | Organization | [facility] | | | and [place] | + + + | Address | Unknown | + + + | Phone | Unavailable | + + + Support + + + + + | Name | Relationship | Address | Phone | + + + + + | Lesia Castaneda | ECON | [address] | | | | | [place] [address] | | + + + + + | Rosina Castaneda | ECON | Unknown | | + + + + + | Sandy Zamora | ECON | [address] | | | | | [place] | | | | | [address] | | + + + + + Care Team Providers + +------+ + | Care Senior Accountant Cpa Name | Role | Phone | + +------+ + PCP | Unavailable | + +------+ + Encounter Details +--------+ + + + + | Date | Type | Department | Care Team | Description | +--------+ + + + + | 09/05/ | Hospital | [facility] | | | | 1999 - | Encounter | [facility] | | | | | [facility]ENTER [address] | | | | 12/23/ | | [place] | | | | 1999 | | [address] | | | | | | [phone] | | | +--------+ + + + [...] | | | | | [place], [place] | | | | | | [address] | | | | | | | | +--------+---------+ + + + documented as of this encounter Visit Diagnoses Not on filedocumented in this encounter"
--- OUTSIDE RECORDS SUMMARY | ~2019-12-09 | XMS | Encounter Summary ---
Demographics + + + | Address | [address] | | | [place] [address] | + + + | Home Phone [...] + | Lesia Castaneda | ECON | [address] | | | | | [place] [address] | | + + + + + | Rosina Castaneda | ECON | Unknown | | + + + + + | Sandy Zamora | ECON | [address] | | | | | [place] | | | | | [address] | | + + + + + Care Team Providers + +------+ + | Care Grinding Room Inspector Name | Role | Phone | + +------+ + | Jerome Ray | PCP | | | MD | | | + +------+ + Reason for Visit + +--------+ + | Reason | Onset | Comments | | | Date | | + +--------+ + | Appointment | 07/28/ | | | | 2020 | | + +--------+ + Encounter Details +--------+ + + + + | Date | Type | Department | Care Team | Description | +--------+ + + + + | 07/28/ | Telephone | [facility] | Percy Hatfield | Appointment | | 2019 | | [address] | MD Nabil [address] | | | | | [place] | [place] | | | | | [address] | [address] | | | | | [phone] | | | +--------+ + + + [...] this encounter Miscellaneous Notes Telephone Encounter - Enedina Milton - 07/29/2019 3:27 PM PSTCalled patient to r/s a ppt to sooner date per nurse note, patient stated he would like to cancel due to "feeling be tter then ever before" and does not want to r/s. I advised patient if he starts to have any problems to let us know gentry due to provider booking out about 2-3 weeks. Patient verbalized understanding. elep sandra Encounter - Enedina Milton - 07/29/2019 3:27 PM PST----- Message from Johanny salinas RN sent at 07/29/2019 2:51 PM PST ----- Regarding: JDS/ Appt Adjustment Dr [place] recommended he return in about 4 weeks (around 08/19/2019). Please move May augustin ointment up to late July, early August with PVR. Thank you, Johanny documented in this e ncounter Plan of Treatment +--------+---------+ + + + | Date | Type | Specialty | Care Team | Description | +--------+---------+ + + + | 02/01/ | Office | Cardiology | Jazlyn Almeida, | | | 2019 | Visit | | MD [address]ram [address]ICARDO | | | | | | [place] | | | | | | [address] | | | | | | | | +--------+---------+ + + + documented as of this encounter Visit Diagnoses Not on filedocumented in this encounter
--- OUTSIDE RECORDS SUMMARY | ~2019-12-09 | XMS | Encounter Summary ---
Demographics + + + | Address | [address] | | | [place] [address] | + + + | Home Phone | | + + + | Preferred Language | Unknown | + + + | Marital Status | | + + + | Taoist Affiliation | 1041 | + + + | Race | Unknown | + + + | Ethnic Group | Unknown | + + + Author + + + | Author | [facility] | | | and [place] | + + + | Organization | [facility] | | | and [place] | + + + | Address | Unknown | + + + | Phone | Unavailable | + + + Support + + + + + | Name | Relationship | Address | Phone | + + + + + | Lesia Castaneda | ECON | [address] | | | | | [place] [address] | | + + + + + | Rosina Castaneda | ECON | Unknown | | + + + + + | Sandy Zamora | ECON | [address] | | | | [place] | | | | | [address] | | + + + + + Care Team Providers + +------+ + | Care Behavioral Technician Name | Role | Phone | [...] | | | | | | | ([facility]) Hip | | | | | | | fracture, | | | | | | | right, | | | | | | | closed, | | | | | | | initial | | | | | | | encounter | | | | | | | ([facility]) | | | | | | | Coronary | | | | | | | artery | | | | | | | disease | | | | | | | involving | | | | | | | elim ira | | | | | | | coronary | | | | | | | artery of | | | | | | | elim ira heart | | | | | | [...] | | | | | | | ([facility]) | | | | | | [...] + + + + | 11/15/ | Anesthesia | [facility] | Patrick Jacinto | | | 2015 | Event | [facility] | MD Jose Manuel [address] | | | | | [address] | [address] | | | | | [place] | [place] [address] | | | | | [address] | [phone] | | | | | [phone] | | | +--------+ + + + + Anesthesia Record + + + + + | Procedure Name | Responsible | Anesthesia Start | Anesthesia Stop Time | | | Anesthesiologist | Time | | + + + + + | Right | Patrick Jacinto, | 11/16/157 | 11/16/152041 | | Hemiarthroplasty Hip | MD | | | | (Right Hip) | | | | + + + + + +----+---+ + + | Da | T | Event | Comment | | te | i | | | | | m | | | | | e | | | +----+---+ + + | 06 | 1 | | | | /2 | 7 | | | | 3/ | 0 | | | | 20 | 0 | | | | 16 | | | | +----+---+ + + | | 1 | An Start | Reassessment prior to anesthesia induction/procedure. | | | 8 | | | | | 2 | | | | | 7 | | | +----+---+ + + | | 1 | An Start | | | | 8 | Data | | | | 2 | | | | | 7 | | | +----+---+ + + | | 1 | Preoxygenat | | | | 8 | ed | | | | 2 | | | | | 9 | | | +----+---+ + + | | 1 | Antibiotic | | | | 8 | Given | | | | 2 | | | | | 9 | | | +----+---+ + + | | 1 | An | | | | 8 | Induction | | | | 2 | | | | | 9 | | | +----+---+ + + | | 1 | An | | | | 8 | Intubation | | | | 3 | | | | | 2 | | | +----+---+ + + | | 1 | Cayuta | | | | 8 | 43-degrees | | | | 4 | | | | | 4 | | | +----+---+ + + | | 1 | Breathing | | | | 8 | Spontaneous | | | | 5 | ly | | | | 6 | | | +----+---+ + + | | 1 | First | | | | 9 | Inc/Proc St | | | | 0 | | | | | 7 | | | +----+---+ + + | | 2 | Cayuta off | | | | 0 | | | | | 2 | | | | | 5 | | | +----+---+ + + | | 2 | Extubated | | | | 0 | Awake | | | | 3 | | | | | 5 | | | +----+---+ + + | | 2 | an stop | | | | 0 | data | | | | 3 | | | | | 8 | | | +----+---+ + + | | 2 | An Stop | Patient handed off to recovery nurse. | | | 4 | | | | | 2 | | | +----+---+ + + +------+ | Meds | +------+ + + + | Name | Total | + + + | fentaNYL injection (2 mL) | 350 mcg | + + + | propofol (DIPRIVAN) injection | 150 mg | | (bolus) (20 mL) | | + + + | ondansetron | 4 mg | + + + | lidocaine 2% | 60 mg | + + + | ceFAZolin | 2 g | + + + | cisatracurium | 6 mg | + + + | lactated ringers (LR) infusion | 1,400 mL | + + + + + [...] +--------+ + + + | Periph | 11/16/15; 1200; yes; | 11/16/15 1200 by He | 11/18/15 1032 by | | myriam | [id number] catheter system; | L GISELLE Lagos | Arabella Thao | | IV | 18 gauge; lumen/catheter not | | GISELLE Owens | | | patent, catheter/device intact; | | | | | healing within expectations; | | | | | 11/18/15; 1032 | | | +--------+ + + + | Airway | Placement Date: 11/16/15; | 11/16/151833 by | 11/16/152034 by | | | Placement Time: 1833 (created via | Patrick Jacinto, | Patrick Jacinto, | | | procedure documentation); Mask | MD | MD | | | Ventilation: EZ; Airway Grade: 1; | | | | | Laryngoscope Blade Size: 3; | | | | | Attempts: 1; Airway Type: | | | | | endotracheal; Size: 6.5; Airway | | | | | Tube Secured At: 20; Other | | | | | Equipment: stylette; Placement | | | | | Check: breath sounds equal | | | | | bilaterally, exhaled CO2 | | | | | detection device, video | | | | | laryngoscope; Removal Date: | | | | | 11/16/15; Removal Time: 2034 | | | +--------+ + + + | Read | 11/16/15; 1938; Right; hip; | 11/16/151938 by | 11/22/151613 by | | only - | healing within expectations; | Justyn Brooke RN | Mae Gandhi RN | | | 11/22/15; 1614 | | | | Incisi | | | | | on | | | | +--------+ + + [...] encounter OR Notes Anesthesia Postprocedure Evaluation - Patrick Jacinto MD - 11/16/2015 8:43 PM PDTFor matting of this note might be different from the original. ANESTHESIA POSTANESTHESIA EVALUATION Demond Castaneda 84 y.o. male 1930 [id number] Procedure(s) Right Hemiarthroplasty Hip (Right Hip) Cooperates? Yes Mental Status Performs simple tasks. Respiratory Satisfactory - Airway patent (self maintained). Cardiovascular Satisfactory Blood pressure and heart rate acceptable Temperature Satisfactory Pain Satisfactory N/V Control Satisfactory Hydration Satisfactory No signs of dehydration Complications None apparent Filed Vitals: 11/16/15 1800 11/16/15 1813 11/16/15 2040 BP: 153/71 135/72 Pulse: 53 58 63 Temp: 37.2 C (99 F) 36.3 C (97.3 F) Resp: 16 14 SpO2: 100% 100% 95% Electronically signed by Patrick Jacinto MD 11/16/2015 20:43 [facility] nesthesia Proce dure Notes - Patrick Jacinto MD - 11/16/2015 6:34 PM PDTAssociated Order(s): ANE AIRW AY NOTEAnesthesia Airway Placement 11/16/2015 18:34 Preprocedure check: suction, airway equipment checked, patient reassessment prior to induct ion, airway assessed, oxygen and patient identified Rapid Sequence Induction: no Mask ventilation: easy Successful technique: Marlow Laryngoscope blade size: 3 Airway grade: 1 (Full view of glottis) Other equipment: stylette Attempts: 1 Airway type: endotracheal Size: 6.5 Cuffed: cuffed Route, reference point: right side of mouth Tube depth: 20 cm Tube secured with: adhesive tape Trauma: none Tube placement verification: bilateral chest rise, video laryngoscope and carbon dioxide de tection Performing provider: PATRICK JACINTO Electronically Signed by: MD Ana Maria Macdonald date/time: 18:34 nesthesia Prepr ocedure Evaluation - Patrick Jacinto MD - 11/16/2015 3:21 PM PDTFormatting of this no te might be different from the original. ANESTHESIA PREANESTHESIA EVALUATION Demond Castaneda 84 y.o. male 1930 [id number] Procedure(s): Right Hemiarthroplasty Hip (Right Hip) Medical history, anesthesia, medications, allergy, NPO status verified histories reviewed. ECG reviewed. Labs reviewed. Review of Systems / Med History Anesthesia History No anesthesia complications. Cardiovascular (+) CAD(-) hypertension, past UT, CHF (-) dysrhythmias (+) PVD: , right carotid stenosis, l eft carotid stenosis , Exercise tolerance <4 METS Pulmonary (+) smoking history Neurology (+) CVA Psychology Negative except where noted below. Gastrointestinal/Hepatic Negative except where noted below. Endocrine Negative except where noted below. Other (+) anemia, arthritis Cancer (+) prostate cancer Physical Exam Airway MP II, TM >3 FB, Mouth opening >2 FB. Neck: full ROM, extends >30 degrees. Dental ; (+) dentures-upper. CV Rhythm regular. Rate normal. Pulm Clear to auscultation bilaterally. Neuro Grossly normal. Anesthesia Plan ASA 3 Type: General. Induction: Intravenous. Potential problems: None anticipated. Monitors: Standard ASA monitors. Consent statement:Anesthetic plan, alternatives, risks and benefits discussed with patient. Risks discussed included (but were not limited to): blood transfusion, backache, dental inj ury, pain, sore throat, stroke, respiratory events, perioperative CV events, nausea, , . Consenting person understands and agrees to proceed. PARQ. Electronically Signed by: MD Ana Maria Macdonald date/time: 11/16/2015 17:04 documented in th is encounter Plan of Treatment +--------+---------+ + + + | Date | Type | Specialty | Care Team | Description | +--------+---------+ + + + | 02/01/ | Office | Cardiology | Jazlyn Almeida, | | | 2020 | Visit | | [address] | | | | | | [place], [place] | | | | | | [address] | | | | | | | | +--------+---------+ + + + documented as of this encounter Procedures + +--------+ + + + | Procedure Name | Priori | Date/Time | Associated Diagnosis | Comments | | | ty | | | | + +--------+ + + + | ANE AIRWAY NOTE | Routin | 11/16/2015 | | Results for this | | | e | 6:35 PM | | procedure are in the | | | | PDT | | results section. | + +--------+ + + + documented in this encounter Results Anesthesia Airway Note (11/16/2015 6:35 PM PDT) + + + | Narrative | Performed At | + + + | Patrick Jacinto MD 11/16/2015 18:35 Anesthesia Airway | | | Placement 11/16/2015 18:34 Preprocedure check: suction, airway | | | equipment checked, patient reassessment prior to induction, airway | | | assessed, oxygen and patient identified Rapid Sequence Induction: | | | no Mask ventilation: easy Successful technique: Marlow | | | Laryngoscope blade size: 3 Airway grade: 1 (Full view of glottis) | | | Other equipment: stylette Attempts: 1 Airway type: endotracheal | | | Size: 6.5 Cuffed: cuffed Route, reference point: right side of mouth | | | Tube depth: 20 cm Tube secured with: adhesive tape Trauma: none | | | Tube placement verification: bilateral chest rise, video | | | laryngoscope and carbon dioxide detection Performing provider: | | | PATRICK JACINTO Electronically Signed by: Patrick Larose | | | MD Racheal ESig date/time: | | | 11/16/2015 18:34 | | + + + documented in this encounter Visit Diagnoses Not on filedocumented in this encounter Administered Medications + +--------+ +------+------+------+ | Medication Order | MAR | Action | Dose | Rate | Site | | | Action | Date | | | | + +--------+ +------+------+------+ | ceFAZolin (ANCEF, KEFZOL) | Given | 11/16/19 | 2 g | | | | injection Intravenous, PRN, | | 16 6:29 | | | | | Starting Rosemary 11/16/15 at 1829, | | PM PDT | | | | | Anesthesia Intra-op | | | | | | + +--------+ +------+------+------+ +---+---+ | | | +---+---+ + +-------+ +------+---+---+ | cisatracurium (NIMBEX) | Given | 11/16/19 | 6 mg | | | | injection Intravenous, PRN, | | 16 6:29 | | | | | Ventilator Dyssynchrony, Starting | | PM PDT | | | | | Rosemary 11/16/15 at 1829, Anesthesia | | | | | | | Intra-op | | | | | | + +-------+ +------+---+---+ +---+---+ | | | +---+---+ + +-------+ +--------+---+---+ | fentaNYL (PF) injection | Given | 11/16/19 | 50 mcg | | | | Intravenous, PRN, Pain, Starting | | 16 8:07 | | | | | Rosemary 11/16/15 at 1829, Anesthesia | | PM PDT | | | | | Intra-op | | | | | | + +-------+ +--------+---+---+ +-------+ +--------+---+---+ | Given | 11/16/19 | 50 mcg | | | | | 16 7:52 | | | | | | PM PDT | | | | +-------+ +--------+---+---+ | Given | 11/16/19 | 50 mcg | | | | | 16 7:28 | | | | | | PM PDT | | | | +-------+ +--------+---+---+ +---+---+ | | | +---+---+ + +---------+ +---+---+---+ | lactated ringers (LR) infusion | New Bag | 11/16/19 | | | | | at 10-100 mL/hr, Intravenous, | | 16 7:54 | | | | | CONTINUOUS, Starting Rosemary 11/16/15 | | PM PDT | | | | | at 1630, TKO., | | | | | | + +---------+ +---+---+---+ +---------+ +---+---+---+ | New Bag | 11/16/19 | | | | | | 16 6:10 | | | | | | PM PDT | | | | +---------+ +---+---+---+ +---+---+ | | | +---+---+ + +-------+ +-------+---+---+ | lidocaine (PF) 2% injection | Given | 11/16/19 | 60 mg | | | | Intravenous, PRN, Starting Rosemary | | 16 6:29 | | | | | 11/16/15 at 1829, Anesthesia | | PM PDT | | | | | Intra-op | | | | | | + +-------+ +-------+---+---+ +---+---+ | | | +---+---+ + +-------+ +------+---+---+ | ondansetron (ZOFRAN) injection | Given | 11/16/19 | 4 mg | | | | Intravenous, PRN, Nausea, | | 16 6:48 | | | | | Vomiting, Starting Rosemary 11/16/15 at | | PM PDT | | | | | 1848, Anesthesia Intra-op | | | | | | + +-------+ +------+---+---+ +---+---+ | | | +---+---+ + +-------+ +--------+---+---+ | propofol (DIPRIVAN) injection | Given | 11/16/19 | 150 mg | | | | Intravenous, PRN, Starting Rosemary | | 16 6:29 | | | | | 11/16/15 at 1829, Anesthesia | | PM PDT | | | | | Intra-op | | | | | | + +-------+ +--------+---+---+ +---+---+ | | | +---+---+ documented in this encounter"
--- OUTSIDE RECORDS SUMMARY | ~2019-12-09 | XMS | Encounter Summary ---
Demographics + + + | Address | [address] | | | [place] [address] | + + + | Home Phone | | + + + | Preferred Language | Unknown | + + + | Marital Status | | + + + | Advent Affiliation | 1041 | + + + | Race | Unknown | + + + | Ethnic Group | Unknown | + + + Author + + + | Author | [facility] | | | and [place] | + + + | Organization | [facility] | | | and [place] | + + + | Address | Unknown | + + + | Phone | Unavailable | + + + Support + + + + + | Name | Relationship | Address | Phone | + + + + + | Lesia Castaneda | ECON | [address] | | | | | [place] [address] | | + + + + + | Rosina Castaneda | ECON | Unknown | | + + + + + | Sandy Zamora | ECON | [address] | | | | | [place] | | | | | [address] | | + + + + + Care Team Providers + +------+ + | Care Proposal Development Manager Name | Role | Phone | + +------+ + | Jerome Ray | PCP | | | MD | | | + +------+ + Reason for Referral Home Health Care (Routine) +--------+ + + + + + | Status | Reason | Specialty | Diagnoses / | Referred By | Referred To | | | | | Procedures | Contact | Contact | +--------+ + + + + + | Closed | Specialty | Home Health | Diagnoses | Haveman, | Prov Hh | | | Services | Services | Urinary | Chaya | [place] | | | Required | | retention | ALIVIA Emery | [address] | | | | | Status post | [address] | [address] [place] | | | | | total | [place] | [place] | | | | | replacement | [place] | [address] | | | | | of right hip | [address] | Phone: | | | | | Daniels | Phone: | [phone] | | | | | catheter in | [phone] | Fax: | | | | | place | Fax: | [phone] | | | | | Mechanical | [phone] | | | | | | loosening of | | | | | | | other | | | | | | | internal | | | | | | | prosthetic | | | | | | | joint, | | | | | | | initial | | | | | | | encounter | | | | | | | ([facility]) | | | +--------+ + + + + + Reason for Visit Auth/Cert +--------+--------+ + [...] | | | internal | | [address] | | | | | right hip | | [place] | | | | | prosthetic | | [address] | | | | | joint, | | Phone: | | | | | initial | | [phone] | | | | | encounter | | Fax: | | | | | ([facility]) | | [phone] | | | | | Procedures | | | | | | | CT CONV PREV | | | | | [...] + + | 07/13/ | Hospital | [facility] | Maxi Zamora MD | Status post total | | 2020 - | Encounter | [facility] | [address] | replacement of right | | | | [address] [place] | [place] | hip (Primary Dx); | | 07/16/ | | [place] [address] | [phone] | 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 Hatfield for management of his daniels catheter. DISCHARGE MEDICATIONS The patient will resume his usual medications. In addition,he will take: Septra DS one tablet twice daily Aspirin 81 mg twice daily. Tylenol as needed for pain. HOSPITAL COURSE: The patient was admitted and taken to the operating room, at which time, jeff sher underwent a revision of his hemiarthroplasty [...] following surgery and since multiple attempts at daniels catheter inser tion both intra-op and post-op [...] t 1:45 pm for X-rays at the [facility]. D ischarge Instructions for Hip Replacement Surgery You had a hip replacement surgery. This means your natural hip was replaced with an artific ial joint (prosthesis). You may be recovering at home or in a rehabilitation facility. Eithe r way, you must take care of your new hip. Do this by moving and sitting the way you were ta [facility] in the hospital. Also, be sure to see your doctor for follow-up visits, and return to a ctivity slowly. Because a total hip replacement is major surgery, it will be a few months be fore you can move comfortably. Home Care Take your medications exactly as directed on the separate Medication Reconciliation rosa pearl. Typically, you will resume your routine medications [...] the appointment date and time by calling [phone] Extension [phone] When to Seek Medical Attention Call 911 [...] mg of acetaminophen (Tylenol) per day. Hydrocodone-acetaminophen ([place] ) and Oxycodone-acetaminophen (Percocet) have 325 mg [...] red in back of calf PE or NV: sudden chest pain or trouble breathing Stroke: [...] and help the stool stay soft and myux-uq-mnxm. Remember to drink plenty of fluids and eat fiber-containing foods. If you do not have a bowel movement within two days of returning home, add milk of magnesia 30 mL once each night and/or Miralax one capful (17 grams) dissolved in half a cup of water once daily for 3 days. These are available vgfy-nut-ocxfoix at any drugstore. If you are still constipated 3 days after discharge, add a one-time bisacodyl (Dulcolax) farrell ppository or an enema. If these do not work, contact the surgeon's office. [facility] Patient Opioid Handout for Acute or Perioperative [...] clearly, immediately discontinue the medication and call e prescribing provider to discuss a change in medication, dose and/or frequency. Continue t o monitor for worsening symptoms. If you think you're struggling with addiction call our office and [facility]'s National Helpli ne at 8-088-478-HELP. Secure Storage Prescriptions should be stored out [...] program if available. ; Take Back Program: https://www.3Play Mediaiversion.Icontrol NetworksoWatchfinder.gov/drug_disposal/takeback/ National P rescription Drug Take Back Day: twice yearly in February and August ; To find an authorized local toll collector supervisor contact the [facility] Office of Diversion Control s Reg istration Call Center at ; Call your local pharmacy for recommendations. ; Search for a drug disposal location near you on the [employer] diversion control division search engine: https://apps.deadiversion.Icontrol Networksoj.gov/pubdispsearch/spring/main?execution=e1s1 At the time of printing: Hemanth Valencia in [place], Luis in [place], Germania mims in [place] How to Dispose of Medicines at Home: Taken from the FDA guide How to Dispose of Unused Medicines https://www.fda.gov/ForConsumers/ConsumerUpdates/arh263163.htm Disposing medicines in household trash: Almost all [...] through Care Everywhere.Sulfamethoxazol e; Trimethoprim, SMX-TMP tablets (Trinidadian)documented in this encounter Medications at Time of [...] Hardwick PharmD - 07/16/2019 12:00 PM Glen Solo Tonya is s/p R JOANNA revision a nd [...] healthcare providers and keep list current. Marla Hardwick PharmD 07/16/2019 12:00 PM Maxi Crook M D [...] F) Oral 85 18 97 % 07/14/19 1945 88 18 98 % 07/14/19 1513 109/53 [...] now present Confirmed by GAGE WAGNER, BRITTANI ([id number]) on 07/15/2019 6:29:44 AM Red Blood Cells (PRBC) - Crossmatch Result Value Ref Range Product Code [id number] UNIT # [id number] UNIT ABO O UNIT RH POS CROSSMATCH INTERP Compatible Unit Status Issued Blood Product ABORh OPOS Blood Product Expiration Date and Time Product Blood Type Barcode 5100 Product Code [id number] UNIT # [id number] UNIT ABO O UNIT RH POS CROSSMATCH [...] here today for evalu ation of difficult daniels placement, urinary retention, prostate cancer. Patient recently underwent hip surgery. Postoperatively the patient has been unable to voi d. Multiple attempts have been made at trying to place a Daniels catheter and these have been unsuccessful. There appears to be an obstruction at or near the prostate. Patient states he has a history of prostate cancer and was treated with radiation and brach ytherapy. He reports a relatively long history of urinary frequency urgency, weak stream and incontin ence. He denies any recent episodes of dysuria or gross hematuria. Difficult Daniels placement The patient's genitals were prepped and draped usual fashion. An attempt was made at placi ng a 16 Barbadian coud tip catheter. This advanced all the [...] t hen dilated the patient to 18 Barbadian. This was again quite difficult as the stricture appea red to be at the bladder neck or prostatic urethra and was extremely dense. Once he was dil ated 18 Barbadian hole punch was used to make a seldovia tip catheter out of a 16 Barbadian cathete r and the 16 Barbadian catheter was placed over the guidewire and advanced into the bladder. 1 0 mils was instilled in the balloon. The guidewire was removed and the bladder was drained. Patient had approximately 600 mL in the bladder. 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 Recomm end Daniels catheter be kept in place x1 week. He would then follow-up in urology for a cysto scopy. Past Medical History Past Medical History: Diagnosis Date Actinic keratosis Anemia Basal cell carcinoma of skin CAD (coronary artery disease) Carotid stenosis CVA (cerebral vascular accident) ([facility]) Eczema Femur fracture, left ([facility]) Fx eight/more rib-closed H/O: facial fractures Hearing loss wears hearing aids NV (myocardial infarction) ([facility]) 2014 Osteoarthritis Pes planus Prostate cancer ([facility]) prostate Wears dentures full upper Past Surgical History Past Surgical History: Procedure Laterality Date BRACHYTHERAPY prostate cath placement 05/23/15 coronary artery stent 07/07/14 EGD AND COLONOSCOPY N/A 07/25/2015 Procedure: EGD / COLONOSCOPY; Surgeon: Demond More MD; Location: [facility] E UNIT HIP ARTHROPLASTY Right 11/16/2015 Procedure: Right Hemiarthroplasty Hip ; Surgeon: Rayo Mercado MD; Location: [facility] MAIN OR left femur fracture repair [...] Nightly, Chaya Humphries PA-C, 20 mg at 07/13/193 bisacodyl (DULCOLAX) suppository 10 mg, 10 mg, [...] 8.6 mg, 8.6 mg, Oral, BID, Chaya Humphries PA-C, 8.6 mg a t 07/14/19 [...] Negative Lab Results Component Value Date CREA 1.08/12/2018 Jerome Ray MD's notes were reviewed in clinic today. No follow-ups on file.. This document was generated in part using voice recognition software. Frequent wrong word or sound-alike substitutions may have occurred due to the inherent limitations of the voice recognition software. Although I have attempted to edit the content, I have not thoroughly proofread this note, and diving board assembler errors are very likely to occur. CC: Jerome Ray MD Maxi Crook MD - 07/13/2019 1:55 PM [facility] SURGICAL INTERIM HISTORY AND PHYSICAL [...] by: Maxi Zamora MD, 07/13/2019 1:55 PM [facility] signed by Maxi Zamora MD at 07/13 1:55 PM Chaya Tovar PA-C - 07/09/2019 10:21 AM PSTChief Complaint Right hip pain. History of Present [...] Meds ?? Aspirin 81 MG TABS; Therapy: (Recorded:[id number]) to Recorded ?? Lipitor 20 MG Oral Tablet (Atorvastatin Calcium); Therapy: (Recorded:[id number]) to Recorded ?? Tylenol TABS; 500 mg [...] to the prosthetic head articulating in the [place] acetabulum. There is no evidence of chronic [...] PSTATTEMPTED TO PLACE TO 16 FR. TEMP. DANIELS AFTER A NESTHESIA GENERAL AND SPINAL INDUCTION WITH URETHRAL RESISTANCE AT APPROXIMATELY 3/[address] OF DANIELS LENGTH AT MEATUS WITH NO URINE RETURN. USED TACTILE MASSAGE AT BASE OF PENIS AND PALP ATED COILING OF THE CATHETER. USED GENTLE TWISTING AND RE-POSITIONING OF PENIS WITHOUT SUCCE SS. USED A 14 FR COUDE-TIP CATHETER ON A 14 FR. DANIELS KIT AFTER RE-PREPPING WITH SAME TECHNI QUES [...] written instructions sent with patient. lan of Care - Qing Stoner, ISSAC - 07/16/2019 12:26 PM PSTJames breath sounds are clear and equal bilatera lly.Spo2=95% on room air.Patient is not short of breath. lan of Care Qing Negrete RRT - 07/16/2019 12:23 PM PST Severity Score [...] 15+ Q4 5 lan of Care - Majo Lindsay PTA - 07/16/2019 11:41 AM PSTFormatting of this [...] orthotic fitting/training, patient/family education, postural re-edu cation, omani ball techniques, stretching, strengthening, stair training, ROM (Range of Fidel on), transfer training Recommended Frequency: (1-2x/day ORTHO) Patient Status/Goals: Reflects last filed data and may be from multiple contributors. Gait Patient able to complete without assistance. CGA initially with progress to SBA end of sess ion. Level of Clay: stand by assist, contact guard assist Assistive Device: 2 wheeled walker (FWW) Distance (feet): 50 ft, 150 ft Gait Pattern Analysis: 3-point gait Safety Issues: step length decreased, weight-shifting ability decreased Impairments: decreased flexibility, ROM decreased, strength decreased, pain Stairs completed stair training. patient able to recall good technique from previous surgery. Number of Stairs: 8 Handrail Location: both sides Level of Clay: stand by assist Assistive Device: 2 rails Technique Used: step to step (ascending), step to step (descending) Safety Issues: weight-shifting ability decreased Impairments: pain, impaired balance, strength decreased, decreased flexibility Transfers Patient able to complete witout assistance. increased difficulty with rising from lower hei ght chair and required extra time and effort, able to maintain hip precautions throughout se ssion. Sit-Stand, Level of Clay: stand by assist Stand-Sit, Level of Clay: stand by assist Kcg-Autjm-Hcb, Assistive Device: 2 wheeled walker (FWW) Safety Issues: step length decreased, weight-shifting ability decreased Impairments: decreased flexibility, ROM decreased, strength decreased, pain Bed Mobility Patient able to complete without assistance. extra time and effort required. good ahderence to post hip precautions. Assistive Device: bed rails, HOB elevated Supine to Sit, Level of Clay: supervised Sit to Supine, Level of Clay: not tested(pt left up in chair for luch) Safety Issues: decreased use of legs for bridging/pushing Impairments: decreased flexibility, ROM decreased, strength decreased, pain PT Goal Review Date Most Recent Value STG Review Date 07/21/19 at 07/14/2019 0845 Amxpuv-Nth-Wihoff Goal Most Recent Value STG Status met at 07/15/2019 1503 STG Clay Level minimum assist (75% patient effort) at 07/14/2019 0845 STG Assistive Device bed rails, HOB elevated at 07/14/2019 0845 Gfe-Copkq-Hdr Goal Most Recent Value STG Status progressing at 07/15/2019 1503 STG Clay Level modified independent, minimum assist (75% patient effort) at 2019 0845 STG Assistive Device 2 wheeled walker (FWW) at 07/14/2019 0845 Zaz-Mxmqj-Ptt Goal Most Recent Value STG Status met at 07/16/2019 1141 STG Clay Level minimum assist (75% patient effort) at 07/14/2019 0845 STG Assistive Device 2 wheeled walker (FWW) at 07/14/2019 0845 Gait Goal Most Recent Value STG Status progressing at 07/16/2019 1141 STG Clay Level supervised at 07/14/2019 0845 STG Assistive Device 2 wheeled walker (FWW) at 07/14/2019 0845 STG Distance (feet) 50 at 07/14/2019 0845 Stair Goal Most Recent Value STG Status progressing at 07/16/2019 1141 STG Clay Level modified independent at 07/16/2019 1110 STG [...] to initiate stair training. Stair goal added, SEMICONDUCTOR LAB TECHNICIAN to initiat e stair training. Electronically signed by: Veronica Simmons, PT 07/16/2019 1:09 PMPlan of Vivien - Darin Arita - 07/16/2019 9:55 AM PSTMet with He this morning to finalize his discharge plan. He will discharge home with a daniels and is to kept in until his follow up appointment with Dr. Hatfield, which is scheduled for the Jun. Check in 1530. This appointment was placed on the AVS. He would like home health to follow him at home. Option form signed and placed in the [facility] t chart. This CM notified Fay at . He stated his ride (spouse) will be here around 1200 today. She will need to have daniels te grabiel prior to He discharging. DISP: Home with home health. Electronically signed by: Marion Arita 07/16/2019 10:42 AM lan of Sujit Rubalcava RN - 07/16/2019 2:13 AM PSTDemond is doing ok. Demond is a/o x4. On routine tylenol and has been effective. Aquacel dressing is CDI. States no numbness to incision site. Daniels is d raining c/y/u. VSS/afebrile. LSC, HRR, [...] tylenol is all he wants to take. Daniels is draining clear yellow urine . Pt denies numbness or tingling. Dressing is CDI. lan of Annabelle Morales PTA - 07/15/2019 3:03 PM PST Physical Therapy Plan of Care Treatment Note Summary: Demond has been participating in physical therapy for treatment of Revision of ri t hip hemiarthroplasty to total hip arthroplasty via [...] orthotic fitting/training, patient/family education, postural re-edu cation, omani ball techniques, stretching, strengthening, stair training, ROM (Range of Fidel on), transfer training Recommended Frequency: (1-2x/day ORTHO) Patient Status/Goals: Reflects last filed data and may be from multiple contributors. Gait no physical assist, extra time and effort, good adherence to hip precautions Level of Clay: contact guard assist, verbal cues required Assistive Device: 2 wheeled walker (FWW) Distance (feet): 120' Gait Pattern Analysis: 3-point gait Safety Issues: step length decreased, weight-shifting ability decreased Impairments: decreased flexibility, ROM decreased, strength decreased, pain Stairs Patient has 9 steps at home Transfers no physical assist, extra time and effort, good adherence to hip precautions Bed-Chair, Level of Clay: stand by assist Chair-Bed, Level of Clay: stand by assist, verbal cues required Eyj-Hmdir-Zwm, Assistive Device: 2 wheeled walker (FWW) Sit-Stand, Level of Clay: stand by assist, verbal cues required Stand-Sit, Level of Clay: stand by assist, verbal cues required Ktt-Tihlj-Vws, Assistive Device: 2 wheeled walker (FWW) Safety Issues: step length decreased, weight-shifting ability decreased Impairments: decreased flexibility, ROM decreased, strength decreased, pain Bed Mobility no physical assist, extra time and effort, good adherence to hip precautions Assistive Device: bed rails, HOB elevated Supine to Sit, Level of Clay: stand by assist, set up required, verbal cues require d, tactile cues required Sit to Supine, Level of Clay: not tested Safety Issues: decreased use of [...] STG Review Date 07/21/19 at 07/14/2019 0845 Viixoj-Rge-Jzpqqh Goal Most Recent Value STG Status met at 07/15/2019 1503 STG Clay Level minimum assist (75% patient effort) at 07/14/2019 0845 STG Assistive Device bed rails, HOB elevated at 07/14/2019 0845 Qxa-Txbfz-Wco Goal Most Recent Value STG Status progressing at 07/15/2019 1503 STG Clay Level modified independent, minimum assist (75% patient effort) at 2019 0845 STG Assistive Device 2 wheeled walker (FWW) at 07/14/2019 0845 Daa-Pozrx-Qwq Goal Most Recent Value STG Status progressing at 07/15/2019 1503 STG Clay Level minimum assist (75% patient effort) at 07/14/2019 0845 STG Assistive Device 2 wheeled walker (FWW) at 07/14/2019 0845 Gait Goal Most Recent Value STG Status progressing at 07/15/2019 1503 STG Clay Level supervised at 07/14/2019 0845 STG Assistive Device 2 wheeled walker (FWW) at 07/14/2019 0845 STG Distance (feet) 50 at 07/14/2019 0845 PT Time Calculation Individual Start Time: 1431 Individual Stop Time: 1503 Individual Total Time: 32 Missed Treatment Time: 0 PT Total Treatment Time: 32 Timed TX Code Minutes: 32 Electronically signed by: Annabelle Guthrie PTA, 07/15/2019 3:47 PM [facility] - Tim Howell RRT - 2019 10:06 AM PST Demond was [...] Missed Visit Note Patient Information Patient Name: eDmond Castaneda Date of : 1930 Age: 88 [...] PTA at 07/15/2019 10:24 AM PSTPlan of Care - Lalitha Evans O T - 07/15/2019 7:14 AM PSTTherapy [...] Evans OT, 07/15/2019 11:13 AM lan of Care - Clarisse Jones RN - 07/15/2019 1:42 AM PSTA&Ox4, CMS intact pt denies the presence of numbn ess/tingling, VSS, drsg to R hip is CDI, R dorsi/plantar strong, abductor pillow in place, l ungs clear on 2L O2 via NC, denies SOB, bowel tones active x4 (last BM 07-12-19), passing fla tus, tolerating diet well denies n/v, daniels present draining uma colored urine, calls appr opriately and is able to make needs known. He c/o minimal pain to his R hip - he is receiving juan Tylenol 650 mg. Purposeful rounding performed, will continue to monitor. Critical lab value this am - H&H 5.[address] Zamora notified and ordered 2 units of P RBC's to be transfused. Orders placed. Electronically signed by Clarisse Lakhani, RN at 06/27 6:47 AM PSTPlan of Vivien - Majo Walden RN - 07/14/2019 8:16 PM PSTJim has denied any nausea or vomiting this shift, he was advance to a general diet with no issues. H e has denied much pain this shift, at 12 he refused his scheduled tylenol and then decided l ater in the afternoon that he should take it. Pt ambulated with therapy today with CGA w/ fw w. Pt was up in the chair for about an hour. Daniels is draining light uma urine. His dressi ng is CDI. Pt denies numbness or tingling. Bed alarm active. Call light within reach.Electro nically signed by Majo [place] RN at 07/14/2019 8:28 PM PSTPlan of Chris Benedict - 07/14/2019 3:08 PM PSTDischarge Planning: Met with He this morning. He is [place] and [facility]. He lives with his spouse in a two story with 9 steps at the entrance [place] from [facility] on. He has a FWW, walk [...] Marion Arita 07/14/2019 3:32 PM lan of Majo Gray, VILMA - 07/14/2019 1:30 PM PST Physical Therapy [...] orthotic fitting/training, patient/family education, postural re-edu cation, omani ball techniques, stretching, strengthening, stair training, ROM (Range of Fidel on), transfer training Recommended Frequency: (1-2x/day ORTHO) Patient Status/Goals: Reflects last filed data and may be from multiple contributors. Gait Gait with FWW, patient with slow but steady pace. CGA for safety. Level of Clay: minimal assist (75% patient effort) Assistive Device: [...] maintain precautions for sit<>stand. Sit-Stand, Level of Clay: contact guard assist, verbal cues required Stand-Sit, Level of Clay: contact guard assist, verbal cues required Bpq-Hxerd-Olu, Assistive Device: 2 wheeled walker (FWW) Safety Issues: weight-shifting ability decreased, step length decreased Impairments: strength decreased, ROM decreased, decreased flexibility, pain Bed Mobility Patient able to complete with extra time and effort. Required min A for LE to edge of bed. Bed features also utilized. Assistive Device: HOB elevated, bed rails Supine to Sit, Level of Clay: minimal assist (75% patient effort), verbal cues requ ired Sit to Supine, Level of Clay: not tested Safety Issues: decreased use of legs for bridging/pushing Impairments: decreased flexibility, ROM decreased, strength decreased, impaired balance, pa in, motor control impaired PT Goal Review Date Most Recent Value STG Review Date 07/21/19 at 07/14/2019 0845 Vnzxji-Spz-Pautxh Goal Most Recent Value STG Status progressing at 07/14/2019 1330 STG Clay Level minimum assist (75% patient effort) at 07/14/2019 0845 STG Assistive Device bed rails, HOB elevated at 07/14/2019 0845 Edc-Vjbcw-Lqp Goal Most Recent Value STG Status new at 07/14/2019 0845 STG Clay Level modified independent, minimum assist (75% patient effort) at 2019 0845 STG Assistive Device 2 wheeled walker (FWW) at 07/14/2019 0845 Hty-Yuzqf-Gsv Goal Most Recent Value STG Status progressing at 07/14/2019 1330 STG Clay Level minimum assist (75% patient effort) at 07/14/2019 0845 STG Assistive Device 2 wheeled walker (FWW) at 07/14/2019 0845 Gait Goal Most Recent Value STG Status progressing at 07/14/2019 1330 STG Clay Level supervised at 07/14/2019 0845 STG Assistive [...] 2:31 PM lan of Care - Lalitha Evans, OT - 07/14/2019 10:55 AM PST Occupational [...] precautions and AE. LB Dressing, Level of Clay: maximal assist (25% patient effort), set up required, v erbal cues required, tactile cues required Assistive Device: none LB Dressing Assess/Train, Position: sitting LB Dressing Impairments: decreased flexibility, ROM decreased, strength decreased, impaired balance, pain, impaired functional endurance/activity tolerance CGA at sink for generalized safety to wash hands. Grooming, Level of Clay: contact guard assist, set up required, verbal cues require d Grooming Assess/Train, Position: standing Grooming Impairments: decreased flexibility, ROM decreased, impaired functional endurance/a ctivity tolerance, strength decreased Cognitive Orientation: oriented x 4 Bed Mobility min A for RLE back into bed. Assistive Device: bed rails, HOB elevated Supine to Sit, Level of Clay: not tested Sit to Supine, Level of Clay: minimal assist (75% patient effort) Safety Issues: decreased use of legs for bridging/pushing Impairments: decreased flexibility, ROM decreased, strength decreased, impaired balance, pa in, motor control impaired Transfers increased time/effort; cueing for hand placement. good sequencing and pushing leg out to ad here to precautions during sitting. Chair-Bed, Level of Clay: contact guard assist, verbal cues required Wjg-Wctzs-Klj, Assistive Device: 2 wheeled walker (FWW) Sit-Stand, Level of Clay: contact guard assist, verbal cues required Stand-Sit, Level of Clay: contact guard assist, verbal cues required Bmx-Gveun-Khj, Assistive Device: 2 wheeled walker (FWW) Toilet, Level of Clay: contact guard assist, verbal cues required Toilet, [...] STG Status new at 07/14/2019 1024 STG Clay Level stand by assist at 07/14/2019 1024 STG Adaptive Equipment medicaid collection specialist, shoe horn, long handled, sock-aid at 07/14/2019 1024 Toilet Transfer Goal Most Recent Value STG Status new at 07/14/2019 1024 STG Clay Level supervised at 07/14/2019 1024 STG Assistive Device 2 wheeled walker (FWW), grab bars, toilet safety frame at 07/14/2019 1024 Tub/Shower Transfer Goal Most Recent Value Tub/Shower Type walk in shower stall at 07/14/2019 1024 STG Status new at 07/14/2019 1024 STG Clay Level stand by assist, supervised at 07/14/2019 1024 STG Assistive Device 2 wheeled walker (FWW), grab bars, shower chair at 07/14/2019 1024 OT Time Calculation OT Individual Start Time: 1024 OT Individual Stop Time: 1055 OT Individual Total Time: 31 OT Total Treatment Time: 31 Timed TX Code Minutes: 16 Electronically signed by: Lalitha Evans OT, 07/14/2019 1:42 PM nesthesia Pain Man Sergio Quarles MD - 07/14/2019 10:[address] [facility] Neuraxial Opioid Follow-Up Pain level: [...] is able to move all four extremities. Daniels: in. Status post spinal morphine PF The patient is doing well. Continue pain medications per surgeon/primary team. There is no apparent anesthetic complication noted at this time. Pain was under good control for duration of SAB narcotics. lan of Care - Tatiana Jerome delong, PT - 07/14/2019 9:25 AM PSTFormatting of [...] orthotic fitting/training, patient/family education, postural re-edu cation, omani ball techniques, stretching, strengthening, stair training, ROM (Range of Fidel on), transfer training Recommended Frequency: (1-2x/day ORTHO) Patient Status/Goals: Reflects last filed data and may be from multiple contributors. Gait fww at slow pace Level of Clay: minimal assist (75% patient effort) Assistive Device: 2 wheeled walker (FWW) Distance (feet): 25 ft x 2 Gait Pattern Analysis: 3-point gait Transfers increased time and effort, cues for hand placement and to use surgical leg. kicks leg out i n front during sitting to adhere to prec. Bed-Chair, Level of Clay: minimal assist (75% patient effort) Chair-Bed, Level of Clay: minimal assist (75% patient effort) Sej-Dmxpy-Sad, Assistive Device: 2 wheeled walker (FWW) Sit-Stand, Level of Clay: minimal assist (75% patient effort) Stand-Sit, Level of Clay: minimal assist (75% patient effort) Tyc-Lodjq-Kxt, Assistive Device: 2 wheeled walker (FWW) Bed Mobility Assistive Device: bed rails, HOB elevated Supine to Sit, Level of Clay: minimal assist (75% patient effort) Sit to Supine, Level of Clay: minimal assist (75% patient effort) Safety Issues: decreased use of legs for bridging/pushing Balance fair Functional Endurance fair ROM R posterior hip prec ROM Testing Results: no range of motion deficits identified Strength R posterior hip prec PT Goal Review Date Most Recent Value STG Review Date 07/21/19 at 07/14/2019 0845 Vnkpwi-Kym-Uqgfga Goal Most Recent Value STG Status new at 07/14/2019 0845 STG [place] Level minimum assist (75% patient effort) at 07/14/2019 0845 STG Assistive Device bed rails, HOB elevated at 07/14/2019 0845 Lgf-Iueqd-Xou Goal Most Recent Value STG Status new at 07/14/2019 0845 STG Clay Level modified independent, minimum assist (75% patient effort) at 2019 0845 STG Assistive Device 2 wheeled walker (FWW) at 07/14/2019 0845 Mhv-Pddif-Dnv Goal Most Recent Value STG Status new at 07/14/2019 0845 STG [place] Level minimum assist (75% patient effort) at 07/14/2019 0845 STG Assistive Device 2 wheeled walker (FWW) at 07/14/2019 0845 Gait Goal Most Recent Value STG Status new at 07/14/2019 0845 STG Clay Level supervised at 07/14/2019 0845 STG Assistive Device 2 wheeled walker (FWW) at 07/14/2019 0845 STG Distance (feet) 50 at 07/14/2019 0845 PT Time Calculation Individual Start Time: 0845 Individual Stop Time: 0925 Individual Total Time: 40 PT Total Treatment Time: 40 Timed TX Code Minutes: 25 Electronically signed by: Jerome Duff, PT, 07/14/2019 11:59 AM lan of Clarisse Milner RN - 07/14/2019 6:21 AM PSTPt unable to void this shift. Bladder scan for 395. Pt denies any di scomfort. Multiple straight cath attempts unsuccessful by multiple different nurses. Dr. Nito hendricks notified - stated he will contact urology and follow up. lan of Clarisse Milner RN - 07/14/2019 2:34 AM PSTA&Ox4, CMS [...] pain this shift - he is receiving juan Tylenol 650 mg. Purposeful rounding performed, will continue to monitor. lan of Care - Jacy Mcginnis RN - 07/13/2019 8:01 PM PSTJim arrived on surgical floor at 1828. He is disoriented to time and place. Em esis x 2 after moving him in bed. Calm and cooperative. HRR & LSC on 2 Liters of oxygen. B owel tones hypoactive, last BM reported 07/12. Due to void, unable to place daniels during zachary mere (Per PACU nurse). Mobility [...] Relief Outcome: Ongoing, progressing p Note - Emily crump, Maxi Morley MD - 07/13/2019 5:09 PM PSTTotal Hip [...] present and scrubbed for the entire procedure. Wastewater Treatment Operator: LISBETH Reese. Note the housekeeping assistant was necessary in performing th is [...] | | | | | [place], [place] | | | | | | [id number] | | | | | | | [...] | | | | | | hip Daniels catheter | | | | | | [...] (L) | 40.0 - 51.0 % | [facility] | | | | | [...] [address] | [place] | [phone] | | [facility] | | [address] | | | - LABORATORY | | | | + + + + + Red Blood Cells (PRBC) - Crossmatch (07/15/2019 10:56 AM PST) + + + + + + | Component | Value | Ref Range | Performed | Pathologist | | | | | At | Signature | + + + + + + | Product | [id number] | | [facility] | | | Code | | | [facility] | | | | | | MEDICAL | | | | | | CENTER - | | | | | | BLOOD BANK | | + + + + + + | UNIT # | [id number] | | [facility] | | | | [...] + + + + | Blood | [id number] | | [facility] | | | Product | | | [facility] | | | Expiration | | | MEDICAL | | | Date and | | | CENTER - | | | Time | | | BLOOD BANK | | + + + + + + | Product | [id number] | | [facility] | | | Blood Type | | | [facility] | | | Barcode | | | MEDICAL | | | | | | CENTER - | | | | | | BLOOD BANK | | + + + + + + | Product | [id number] | | [facility] | | | Code | | | [facility] | | | | | | MEDICAL | | | | | | CENTER - | | | | | | BLOOD BANK | | + + + + + + | UNIT # | [id number] | | [facility] | | | | [...] + + + + | Blood | [id number] | | [facility] | | | Product [...] St | [place] | | | [facility] | | [address] | | | - BLOOD BANK | [...] by | | | | | | GAGE WAGNER, BRITTANI ([id number]) | | | | | | on [...] + | [facility] | [address] | [place] | [phone] | | [facility] | | [address] | | | - LABORATORY | | [...] | | Critical Result called | | [facility] | | | | to and read back by | | MEDICAL | | | | Clarisse Lakhani RN on | | CENTER - | | | | 07/15/2019 at 6:02 AM by | | LABORATORY | | | | Digna Ashraf. | | | | + + + + + + | Hemoglobin | 5.9 (LL)Comment: | 13.5 - 18.0 | [facility] [...] [address] | [place] | [phone] | | [facility] | | [address] | | | - LABORATORY | | [...] [address] | [place] | [phone] | | [facility] | | [address] | | | - LABORATORY | | [...] (L) | 40.0 - 51.0 % | [facility] | | | | | | [facility] | | | | | | MEDICAL | | | | | | CENTER - | | | | | | LABORATORY | | + + + + + + | Hemoglobin | 7.9 (L) | 13.5 - 18.0 | [facility] | | | | | g/dL | [facility] | | | | | [...] [address] | [place] | [phone] | | [facility] | | [address] | | | - LABORATORY | | | | + + + + + XR Pelvis 1 or 2 Vw (07/13/2019 5:47 PM PST) + + | Specimen | + + | | + + + + + | Impressions | Performed At | + + + | Interval right hip arthroplasty. Dictated and Signed by: Aj | [facility] | | MD Myles Electronically [...] Culture | No anaerobes isolated. | | [facility] | | | | | | [facility] [...] [address] | [place] | [phone] | | [facility] | | [address] | | | - LABORATORY | | [...] | | | Result | | | [facility] | | [...] + | [facility] | [address] | [place] | [phone] | | [facility] | | [address] | | | - LABORATORY | | [...] + | [facility] | 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 | + + | Prostate cancer (HCC) Malignant neoplasm of prostate | + + | Urinary retention Retention of urine, unspecified | + + | Status post total replacement of right hip | + + | Daniels catheter in place Other postprocedural status | + + documented in this encounter Administered Medications + +--------+ + +------+------+ | Medication Order | MAR | Action | Dose | Rate | Site | | | Action | Date | | | | + +--------+ + +------+------+ | acetaminophen (TYLENOL) tablet | Given | 07/13/19 | 1,000 mg | | | | 1,000 mg 1,000 mg, Oral, SEE | | 20 12:30 | | | | | ADMIN INSTRUCTIONS, Starting e | | PM PST | | | | | 07/13/19 at 1209, For 1 dose, | | | | | | | Nursing to give 60 minutes before | | | | | | | time of surgery, Pre-op | | | | | | + +--------+ + +------+------+ +---+---+ | | | +---+---+ + +-------+ +--------+---+---+ | acetaminophen (TYLENOL) tablet | Given | [...] +-------+ +--------+---+---+ +-------+ +--------+---+---+ | Given | 07/16/19 | [...] First dose on Fri07/13/19 at | | PM PST | | [...] +---+---+ | | | +---+---+ + +-------+ +-----+---+---+ | ceFAZolin (ANCEF, KEFZOL) 2 g | Given | 07/14/19 | 2 g | | | | in sterile water 20 mL syringe | | 20 5:30 | | | | | (100 mg/mL) 2 g, Intravenous, | | AM PST | | | | | EVERY 8 HOURS INTERVAL, First | | | | | | | dose on Fri07/13/19 at 2230, For | | | | | | | 2 doses, Start 8 hours after | | | | | | | previous dose. Last dose to be | | | | | | | given within 24 hours of surgery | | | | | | | end time Keep in refrigerator. | | | | | | | Give IV push over 3-5 minutes., | | | | | | | Post-op/Phase II, Indications: | | | | | | | Surgical Prophylaxis | | | | | | + +-------+ +-----+---+---+ +-------+ +-----+---+---+ | Given | 07/13/19 | 2 g | | | | | 20 9:33 | | | | | | PM PST | | | | +-------+ +-----+---+---+ + +---+ | | | + +---+ [...] | | | | | Itching, Starting Fri07/13/19 at | | | | | | | 1828, Oral route is preferred., | | | | | | | Post-op/Phase II | | | | | | + +-------+ +---------+---+---+ + +---+ | | | + +---+ | diphenhydrAMINE (BENADRYL) | | | tablet 25 mg 25 mg, Oral, EVERY | | | 4 HOURS PRN, Itching, Starting | | | 07/13/19 at 1828, Oral route | | | [...] | | +---+---+ + +-------+ +--------+---+---+ | ibuprofen (ADVIL, MOTRIN) | Given | 07/13/19 | 400 mg | | | | tablet 400 mg 400 mg, Oral, SEE | | 20 12:30 | | | | | ADMIN INSTRUCTIONS, Starting Tue | | PM PST | | | | | 07/13/19 at 1209, For 1 dose, | | | | | | | Nursing to give 60 minutes before | | | | | | | time of surgery, Pre-op | | | | | | + +-------+ +--------+---+---+ +---+---+ | | | +---+---+ + +---------+ +--------+-------+---+ | lactated ringers (LR) infusion | New Bag | 07/13/19 | 1,000 | 100 | | | 2,000 mL at 100 mL/hr, | | 20 6:56 | mLs | mL/hr | | | Intravenous, FIXED VOLUME (see | | PM PST | | | | | admin instruction), Starting Tue | | | | | | | 07/13/19 at 1845, 2 liters then | | | | | | | discontinue, Post-op/Phase II | | | | | | + +---------+ +--------+-------+---+ +---+---+ | | | +---+---+ + +---------+ +---+---+---+ | lactated ringers (LR) infusion | New Bag | 07/13/19 | | | | | at 10-100 mL/hr, Intravenous, | | 20 4:53 | | | | | CONTINUOUS, Starting 2/18/20 | | PM PST | | | [...] +-------+ +--------+---+---+ +-------+ +--------+---+---+ | Given | 02/20/20 | 8.6 mg | | | | | 20 8:29 | | | | | | PM PST | | | | +-------+ +--------+---+---+ | Given | 02/20/20 | 8.6 mg | | | | | 20 9:25 | | | | | | AM PST | | | | +-------+ +--------+---+---+ +---+---+ | | | +---+---+ documented in this encounter
--- OUTSIDE RECORDS SUMMARY | ~2019-12-09 | XMS | Encounter Summary ---
Demographics + + + | Address | [address] | | | [place] [address] | + + + | Home Phone [...] + | Lesia Castaneda | ECON | [address] | | | | | [place] [address] | | + + + + + | Rosina Castaneda | ECON | Unknown | | + + + + + | Sandy Zamora | ECON | [address] | | | | | [place] | | | | | [address] | | + + + + + Care Team Providers + +------+ + | Care Can Line Operator Name | Role | Phone | + +------+ + PCP | Unavailable | + +------+ + Encounter Details +--------+ + + + + | Date | Type | Department | Care Team | Description | +--------+ + + + + | 09/04/ | Hospital | [facility] | | | | 2006 - | Encounter | [facility] | | | | | | CENTER [address] | | | | 09/22/ | | [place] | | | | 2006 | | [address] | | | | | | [phone] | | | +--------+ + + + [...] | | | | | [place], [place] | | | | | | [address] | | | | | | | | +--------+---------+ + + + documented as of this encounter Visit Diagnoses Not on filedocumented in this encounter"
--- OUTSIDE RECORDS SUMMARY | ~2019-12-09 | XMS | Encounter Summary ---
Demographics + + + | Address | [address] | | | [place] [address] | + + + | Home Phone [...] + | Lesia Castaneda | ECON | [address] | | | | | [place] [address] | | + + + + + | Rosina Castaneda | ECON | Unknown | | + + + + + | Sandy Zamora | ECON | [address] | | | | | [address] | | | | | [address] | | + + + + + Care Team Providers + +------+ + | Care Commercial Finance Manager Name | Role | Phone | + +------+ + PCP | Unavailable | + +------+ + Encounter Details +--------+ + + + + | Date | Type | Department | Care Team | Description | +--------+ + + + + | 04/07/ | Hospital | [facility] | | | | 2009 - | Encounter | MED CTR [facility] | | | | | | CENTER [address] | | | | 04/24/ | | [place] | | | | 2009 | | [address] | | | | | | [phone] | | | +--------+ + + + [...] | | | | | [place], [place] | | | | | | [address] | | | | | | | | +--------+---------+ + + + documented as of this encounter Visit Diagnoses Not on filedocumented in this encounter"
--- OUTSIDE RECORDS SUMMARY | ~2019-12-09 | XMS | Encounter Summary ---
Demographics + + + | Address | [address] | | | [place] [address] | + + + | Home Phone | | + + + | Preferred Language | Unknown | + + + | Marital Status | | + + + | Roman Catholic Affiliation | Unknown | + + + | Race | White | + + + | Ethnic Group | Not or | + + + Author + + + | Author | [facility] | + + + | Organization | [facility] | + + + | Address | Unknown | + + + | Phone | Unavailable | + + + Support + + +---------+ + | Name | Relationship | Address | Phone | + + +---------+ + | Sandy Zamora | ECON | Unknown | | + + +---------+ + Care Team Providers + +------+ + | Care Scenic Arts Supervisor Name | Role | Phone | [...] | | 2015 | | [facility] | [facility] [address] | | | | | [place] | [address] | | | | | [address] | [place], [place] | | | | | [facility] | [address] | | | | | [address] | [phone] | | | | | floor [place], [place] | | | | | | [address] | | | | | | [phone] | | | +--------+ + + + [...]
--- OUTSIDE RECORDS SUMMARY | ~2019-12-09 | XMS | Encounter Summary ---
Demographics + + + | Address | [address] | | | [place] [address] | + + + | Home Phone | | + + + | Preferred Language | Unknown | + + + | Marital Status | | + + + | Sikhism Affiliation | Unknown | + + + | Race | White | + + + | Ethnic Group | Not or | + + + Author + + + | Author | [facility] | + + + | Organization | [facility] | + + + | Address | Unknown | + + + | Phone | Unavailable | + + + Support + + +---------+ + | Name | Relationship | Address | Phone | + + +---------+ + | Sandy Zamora | ECON | Unknown | | + + +---------+ + Care Team Providers + +------+ + | Care Naval Special Warfare Medic Name | Role | Phone | + +------+ + | Jerome Ray MD | PCP | | + +------+ + Reason for Visit +--------+ + | Reason | Comments | +--------+ + | Stroke | | +--------+ + Encounter Details +--------+ + + + + | Date | Type | Department | Care Team | Description | +--------+ + + + + | 10/27/ | Emergency | [facility] Emergency | | | | 2015 | | Department [address] | | | | | [address] | | | | | | [facility] | | | | | | [place], [place] | | | | | | [address] | | | | | | [phone] | | | +--------+ + + + [...] | + + + +---------+--------+ + | aspirin EC 81 mg | 81 mg. | | 0 | | | | oral tablet,delayed | | | | | | | release (DR/EC) | | | | | | + + + +---------+--------+ + | atorvastatin 80 mg | Take 80 mg by mouth | | 0 | | | | oral tablet | once daily. | | | | | + + + +---------+--------+ + | Cholecalciferol, | Take 5,000 Units by | | 0 | | | | Vitamin D3, 5,000 | mouth once daily. | | | | | | unit oral tablet | | | | | | + + + +---------+--------+ + | clopidogrel 75 mg | 75 mg. | | 0 | | | | oral tablet | | | | | | + + + +---------+--------+ + | cyanocobalamin | Take by mouth. | | 0 | | | | 1,000 mcg oral | | | | | | | tablet | | | | | | + + + +---------+--------+ + | Multivitamins oral | Chew and swallow 1 | | 0 | | | | tablet,chewable | tablet once daily. | | | | | + + + +---------+--------+ + documented as of this encounter Plan of Treatment Not on filedocumented as of this encounter Visit Diagnoses Not on filedocumented in this encounter"
--- OUTSIDE RECORDS SUMMARY | ~2019-12-09 | XMS | Encounter Summary ---
Demographics + + + | Address | [address] | | | [place] [address] | + + + | Home Phone | | + + + | Preferred Language | Unknown | + + + | Marital Status | | + + + | Uatsdin Affiliation | [id number] | + + + | Race | Unknown | + + + | Ethnic Group | Unknown | + + + Author + + + | Author | [facility] | | | and [place] | + + + | Organization | [facility] | | | and [place] | + + + | Address | Unknown | + + + | Phone | Unavailable | + + + Support + + + + + | Name | Relationship | Address | Phone | + + + + + | Lesia Castaneda | ECON | [address] | | | | | [place] [address] | | + + + + + | Rosina Castaneda | ECON | Unknown | | + + + + + | Sandy Zamora | ECON | [address] | | | | [place] | | | | | [address] | | + + + + + Care Team Providers + +------+ + | Care Plate Grainer Apprentice Name | Role | Phone | + +------+ + | Jerome Ray | PCP | | | MD | | | + +------+ + Reason for Referral Diagnostic/Screening (Routine) +--------+--------+ + + + + | Status | Reason | Specialty | Diagnoses / | Referred By | Referred To | | | | | Procedures | Contact | Contact | +--------+--------+ + + + + | Closed | | Radiology | Diagnoses | [place], | [facility] | | | | | Right hip | Maxi Morley MD | Medicine | | | | | pain | [address] | [address] | | | | | Procedures | [place] | [place], | | | | | [place] Bone Scan | [place] | [place] | | | | | 3 Phase | [address] | [address] | | | | | | Phone: | Phone: | | | | | | [phone] | [phone] | | | | | | Fax: | Fax: | | | | | | [phone] | [phone] | +--------+--------+ + + + + Reason for Visit Diagnostic/Screening (Routine) +--------+--------+ + + + + | Status | Reason | Specialty | Diagnoses / | Referred By | Referred To | | | | | Procedures | Contact | Contact | +--------+--------+ + + + + | Closed | | Radiology | Diagnoses | [place], | [facility] | | | | | Right hip | Maxi Morley MD | Medicine | | | | | pain | [address] | [address] | | | | | Procedures | [place] | [place], | | | | | [place] Bone Scan | [facility] | [place] | | | | | 3 Phase | [address] | [address] | | | | | | Phone: | Phone: | | | | | | [phone] | [phone] | | | | | | Fax: | Fax: | | | | | | [phone] | [phone] | +--------+--------+ + + + + Encounter Details +--------+ + + + + | Date | Type | Department | Care Team | Description | +--------+ + + + + | 05/14/ | Hospital | [facility] | Maxi Zamora MD | Right hip pain | | 2019 | Encounter | MED CTR NUCLEAR | [address] | | | | | MEDICINE [address] | [place], [place] | | | | | [facility] [place], | [address] | | | | | [place] [address] | [phone] | | | | | [phone] | | | +--------+ + + + [...] | | | | | [facility] | | | | | | [address] | | | | | | | [...] + | Diagnosis | + + | Right hip pain Pain in joint, pelvic region and thigh | + + documented in this encounter Administered Medications + +--------+ + +------+------+ | Medication Order | MAR | Action | Dose | Rate | Site | | | Action | Date | | | | + +--------+ + +------+------+ | technetium TC-99M medronate | Given | 05/14/20 | 26 | | | | (MDP) injection 25 millicurie 25 | | 19 1:10 | millicur | | | | millicurie, Intravenous, ONCE | | PM PST | ies | | | | PRN, Other, Starting 05/14/19 | | | | | | | at 1310, For 1 dose, Nuclear | | | | | | | Medicine | | | | | | + +--------+ + +------+------+ +---+---+ | | | +---+---+ documented in this encounter"
--- OUTSIDE RECORDS SUMMARY | ~2019-12-09 | XMS | Encounter Summary ---
Demographics + + + | Address | [address] | | | [place] [address] | + + + | Home Phone | | + + + | Preferred Language | Unknown | + + + | Marital Status | | + + + | Baptist Affiliation | 1041 | + + + | Race | Unknown | + + + | Ethnic Group | Unknown | + + + Author + + + | Author | [facility] | | | and [place] | + + + | Organization | [facility] | | | and [place] | + + + | Address | Unknown | + + + | Phone | Unavailable | + + + Support + + + + + | Name | Relationship | Address | Phone | + + + + + | Lesia Castaneda | ECON | [address] | | | | | [place] [address] | | + + + + + | Rosina Castaneda | ECON | Unknown | | + + + + + | Sandy Zamora | ECON | [address] | | | | | [place] | | | | | [address] | | + + + + + Care Team Providers + +------+ + | Care Industrial Yard Brake Coupler Name | Role | Phone | + [...] | | Other iron | | Demond Sher MD | | | | | deficiency | | [address], | | | | | anemia | | [address] | | | | | Hematest | | [place], | | | | | positive | | [place] [address] | | | | | stools | | Phone: | | | | | Other iron | | [phone] | | | | | deficiency | | Fax: | | | | | anemia | | [phone] | | | | | [D50.8] | | | | | | | Hematest | | | | | | | positive | | | | | | | stools | | | | | | | [R19.5] | | | | | | | Procedures | | | | | | | RI | | | | | | | COLONOSCOPY | | | | | | | FLX DX | | | | | | | W/COLLJ SPEC | | | | | | | WHEN PFRMD | | | | | | | RI | | | | | | | [...] Description | +--------+---------+ + + + | 07/24/ | Surgery | [facility] | Demond More MD | EGD / COLONOSCOPY | | 2015 | | MED CTR [facility] INTRA OP | [address], Link | | | | | [address] | [address] [place] | | | | | [place], [place] | [address] | | | | | [address] | | | | | | [phone] | | | +--------+---------+ + + + [...] in 2013 he was referred back to [place]. A repeat cardiovascular evaluation in April 2015 [...] made to ensure accuracy; however, inadvertent computerized automatic blocker errors may be pre sent. documented in [...] | | | | | [address] [place] | | | | | | [address] | | | | | | | [...] | Monocytes | | K/uL | [facility] | | | | | | MEDICAL | | | | | | CENTER - | | | | | | LABORATORY | | + + + + + + | Absolute | 0.00 | 0.00 - 0.40 | [facility] | | | Eosinophils | | K/uL | [facility] | | | | | | MEDICAL | | | | | | CENTER - | | | | | | LABORATORY | | + + + + + + | Absolute | 0.00 | 0.00 - 0.10 | [facility] | | | Basophils | | K/uL | [facility] | [...] [address] | [place] | [phone] | | [facility] | | [address] | | | - LABORATORY | | [...] | r pylori Ag | | | [facility] | | | | | [...] [address] | [place] | [phone] | | [facility] | | [address] | | | - LABORATORY | | | | + + + + + AI (07/25/2015 10:25 AM PST) + + | Specimen | + + | | + + + + -+ | Narrative | Performed At | + + -+ | | [facility] | | GastroenterologyPatient Name: Demond Mirza Date: 07/25/2015 | [facility] | | 10:25 AMMRN: [id number] #: [id number] of : | | | 1930dmit Type: AmbulatoryAge: 84Room: [facility] 01Gender: MaleNote | | | Status: FinalizedAttending MD: Demond More, [facility]ENrocedure: | | | Upper GI endoscopyIndications: Acute post hemorrhagic | | | anemia, Heme positive stoolProviders: Demond More MD, | | | CHELY WING, Community Living Coach, Rosina Ace | | | Aram, Community Living Coach, Pipo Dickerson MD (Anesthesia Staff)Referring MD: | [...] physician, the nurse, the anesthesiologist and the preventative maintenance technician | | | in the endoscopy [...] | | 10:33:11 AMScope Out: 10:36:40 AM [facility] | | | [place], [address] [place] [address] | | | - Perform a colonoscopy [...] |Scope Out: 10:36:40 AM | | | [facility], [address] [place] [address] | | | [address] | | + + -+ + +---------+ + + | Performing | Address | City/State/[facility] Mexicocode | Phone Number | | Organization | | | | + +---------+ + + | [facility] [place] | | | | + +---------+ + + COLONOSCOPY (07/25/2015 10:24 AM PST) + + | Specimen | + + | | + + + + -+ | Narrative | Performed At | + + -+ | | [facility] | | GastroenterologyPatient Name: Demond CastanedaProjudie Date: 07/25/2015 | [place] | | 10:24 AMMRN: [id number] #: [id number] of : | | | 1930dm Type: AmbulatoryAge: 84Room: [facility] 01Gender: MaleNote | | | Status: FinalizedAttending MD: Demond More, MDProcedure: | | | ColonoscopyIndications: Heme positive stool, | | | AnemiaProviders: Demond More MD, Marquita Anderson RN, | | | CHELY WING, Community Living Coach, Rosina Ace | | | Aram, Community Living Coach, Pipo Dickerson MD | | | (Anesthesia [...] the | | | anesthesiologist and the preventative maintenance technician in the endoscopy suite. Mental | [...] AMScope | | | Out: 10:59:12 AM [facility], [address] | | | [place] [address] | | | - Discharge patient to [...] |Scope Out: 10:59:12 AM | | | [facility], [address] [place], [place] | | | [address] | | + + -+ + +---------+ + + | Performing | Address | City/State/[facility] Mexicocode | Phone Number | | Organization | | | | + +---------+ + + | [facility] | | | | + +---------+ + + documented in this encounter Visit Diagnoses + + | Diagnosis | + + | Other iron deficiency anemia | + + | Hematest positive stools Nonspecific abnormal finding in stool contents | + + documented in this encounter
--- OUTSIDE RECORDS SUMMARY | ~2019-12-09 | XMS | Encounter Summary ---
Demographics + + + | Address | [address] | | | [place] [address] | + + + | Home Phone | | + + + | Preferred Language | Unknown | + + + | Marital Status | | + + + | Judaism Affiliation | 1041 | + + + [...] + | Lesia Castaneda | ECON | [address] | | | | | [place] [address] | | + + + + + | Rosina Castaneda | ECON | Unknown | | + + + + + | Sandy Zamora | ECON | [address] | | | | | [place] | | | | | [address] | | + + + + + Care Team Providers + +------+ + | Care Oven Dumper Name | Role | Phone | + +------+ + | Sergio Thompson MD | PCP | | + +------+ + Encounter Details +--------+ + + + + | Date | Type | Department | Care Team | Description | +--------+ + + + + | 12/15/ | Orders Only | [facility] | Provider, | | | 2018 | | SYSTEM GENERIC OP | MD [address] | | | | | CONVERSION [address] | [address] | | | | | [address] [place], [place] | [place] [address] | | | | | [address] | | | | | | [phone] | | | +--------+ + + + [...] [place] | | | | | | [address] | | | | | | | | +--------+---------+ + + + documented as of this encounter Visit Diagnoses Not on filedocumented in this encounter"
--- OUTSIDE RECORDS SUMMARY | ~2019-12-09 | XMS | Encounter Summary ---
Demographics + + + | Address | [address] | | | [place] [address] | + + + | Home Phone | | + + + | Preferred Language | Unknown | + + + | Marital Status | | + + + | Mu-Ism Affiliation | 1041 | + + + [...] + | Lesia Castaneda | ECON | [address] | | | | | [place] [address] | | + + + + + | Rosina Castaneda | ECON | Unknown | | + + + + + | Sandy Zamora | ECON | [address] | | | | [place] | | | | | [address] | | + + + + + Care Team Providers + +------+ + | Care Trains Service Conductor Name | Role | Phone | + +------+ + | Jerome Ray | PCP | | | MD | | | + +------+ + Reason for Visit + + + | Reason | Comments | + + + | Follow-up | | + + + Encounter Details +--------+---------+ + + + | Date | Type | Department | Care Team | Description | +--------+---------+ + + + | 04/28/ | Office | [facility] | Jazlyn Stanley, | S/P coronary artery | | 2019 | Visit | CARDIOLOGY AVINASH | [address] | stent placement | | | | [address] | [place], [place] | (Primary Dx); Stable | | | | [address] | [address] | angina (HCC); | | | | [place] | | Coronary artery | | | | [address] | | disease involving | | | | [phone] | | [place] coronary | | | | | | artery of [place] | | | | | | heart without angina | | | | | | pectoris | +--------+---------+ + + + Social History [...] + + + | Blood Pressure | 116/58 | 04/28/2019 11:16 AM | | | | | PST | | + + + + + | Pulse | 64 | 04/28/2019 11:16 AM | | | | | PST | | + + + + + | Temperature | - | - | | + + + + + | Respiratory Rate | - | - | | + + + + + | Oxygen Saturation | 97% | 04/28/2019 11:16 AM | | | | | PST | | + + + + + | Inhaled Oxygen | - | - | | | Concentration | | | | + + + + + | Weight | 77.4 kg (170 lb 11.2 | 04/28/2019 11:16 AM | | | | oz) | PST | | + + + + + | Height | 185.4 cm (6' 1") | 04/28/2019 11:16 AM | | | | | PST | | + + + + + | Body Mass Index | 22.52 | 04/28/2019 11:16 AM | | | | | PST | | + + + + + documented in this encounter Progress Notes Jazlyn Stanley MD - 04/28/2019 11:30 AM PSTFormatting of this note might be different f rom the original. Date of visit: 04/28/2019 Primary Care Physician: Sergio Thompson MD CHIEF COMPLAINT: Chief Complaint Patient presents with Follow-up HISTORY OF PRESENT ILLNESS: Demond is 88 y.o. here for follow-up visit. History of coronary artery disease previous PCI in 2014. No clear chest pain or anginal symptoms. 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 Blood pressure has been controlled. Modestly active, had a fall in October of 2017 and had to have hip and knee surgery. Has known history of coronary artery disease, was [place] [address] Marrero, attempted CT O of LCX however was unsuccessful. Had PCI in [place] in Jun 2014, evaluated again in Apr 2015 stents were patent, the latest patient doesn't remember. Past medical history, SH, FH, and medications were reviewed in the chart. Medications: Outpatient Encounter Medications as of 04/28/2019 Medication Sig Dispense Refill [DISCONTINUED] acetaminophen (TYLENOL) 500 mg tablet Take 1,000 mg by mouth Daily. Take s every am aspirin 81 mg chewable tablet Take 81 mg by mouth Daily. atorvaSTATin (LIPITOR) 20 mg tablet [DISCONTINUED] cephalexin (KEFLEX) 250 mg capsule take 1 capsule by mouth four times a day 0 [DISCONTINUED] cholecalciferol 5000 UNITS CAPS Take 1 capsule by mouth Daily. (Patient not taking: Reported on 08/12/2018) 30 capsule 2 clopidogrel (PLAVIX) 75 mg tablet Take 75 mg by mouth Daily. [DISCONTINUED] cyanocobalamin (VITAMIN B-12) 500 mcg tablet Take 500 mcg by mouth Daily . [DISCONTINUED] desonide (DESOWEN) 0.05% cream [DISCONTINUED] fluorouracil (EFUDEX) 5 % cream [DISCONTINUED] Multiple Vitamin (MULTIVITAMINS PO) Chew and swallow 1 tablet once daily . [DISCONTINUED] MULTIPLE VITAMIN PO Take by mouth Daily. [DISCONTINUED] oxyCODONE (ROXICODONE) 5 mg tablet Take 1 tablet by mouth every 3 hours as needed for Pain. (Patient not taking: Reported on 08/12/2018) 20 tablet 0 No facility-administered encounter medications on file as of 04/28/2019. Allergies Allergies Allergen Reactions Sulfa Antibiotics Nausea And Vomiting REVIEW OF SYSTEMS: Constitutional: negative for fatigue. No fever, chills, and rigors. No report of weight ch lilliam. HEENT: Positive for hearing loss wears hearing aids. Eyes: Wears glasses, redness, or secretion. Respiratory: Negative for cough, sputum production, hemoptysis, wheezing. Cardiovascular: As HPI. Gastrointestinal: Negative for nausea, vomiting, diarrhea, abdominal pain and blood in stoo l. Genitourinary: Negative for dysuria or hematuria. Musculoskeletal: Chronic arthritic and hip pain.. Skin: Negative for rash. Neurological: Negative for dizziness. No numbness. No recent falls. No slurred speech. Hematological: No significant bruising. Psychiatric/Behavioral: No depression or anxiety. PHYSICAL EXAM Vital Signs: BP 116/58 | Pulse 64 | Ht 1.854 m (6' 1") | Wt 77.4 kg (170 lb 11.2 oz) | SpO2 97% | B KS 22.52 kg/m GENERAL APPEARANCE: Alert, oriented, cooperative, no [...] DATA Lab Results Component Value Date/Time NA 144 08/12/2018 09:31 AM NA 139 08/12/2017 09:28 AM NA 142 02/11/2017 09:58 AM K 3.7 08/12/2018 09:31 AM K 3.8 08/12/2017 09:28 AM K 3.8 02/11/2017 09:58 AM CO2 27 08/12/2018 09:31 AM CO2 27 08/12/2017 09:28 AM CO2 25 02/11/2017 09:58 AM BUN 26 (H) 08/12/2018 09:31 AM BUN 26 (H) 08/12/2017 09:28 AM BUN 27 (H) 02/11/2017 09:58 AM CREA 1.20 08/12/2018 09:31 AM CREA 1.21 08/12/2017 09:28 AM CREA 1.12 02/11/2017 09:58 AM CALCIUM 9.6 08/12/2018 09:31 AM CALCIUM 9.5 08/12/2017 09:28 AM CALCIUM 9.4 02/11/2017 09:58 AM Lab Results Component Value Date/Time WBC 5.1 08/12/2018 09:31 AM WBC 4.3 08/12/2017 09:28 AM WBC 4.5 02/11/2017 09:58 AM HGB 9.2 (L) 08/12/2018 09:31 AM HGB 10.3 (L) 08/12/2017 09:28 AM HGB 10.5 (L) 02/11/2017 09:58 AM HCT 28.5 (L) 08/12/2018 09:31 AM HCT 29.2 (L) 08/12/2017 09:28 AM HCT 29.3 (L) 02/11/2017 09:58 AM MCV 98.3 08/12/2018 09:31 AM MCV 96.8 08/12/2017 09:28 AM MCV 96.1 02/11/2017 09:58 AM LABPLAT 177 06/16/2014 12:10 PM Lab Results Component Value Date ALT 9 (L) 08/12/2018 ALT 12 08/12/2017 GLUF 89 06/16/2014 EC07/22/2018 Ordered and reviewed by myself showed normal sinus rhythm with nonspecific intraventricular delay Last Echo: 2014 Reported normal LV size and function. No significant valvular pathology. 06/17 ECHO EF 60 % with Grade I diastolic dysfunction Last Stress test: 07/30/2018 Reported with no clear reversible defect to suggest ischemia. Last Cath: 05/23/2015 Patent LAD and LCX stents. 07/07/14 PCI of LCX OM1 PROMUS 2.75 x 16 mm. 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 1. Coronary artery disease, dyspnea on exertion. Left dominant system, PCI to LAD and the l atest OPTICAL FABRICATION TECHNICIAN of OM. 2. Dyslipidemia. 3. History of cerebral vascular accident. 4. Chronic arthritic pain. Plan: Reviewed the stress test finding with the patient. No clear reversible defect findings. Normal LV size and function. Blood pressure is controlled. Continue with aspirin and statin. Monitor blood pressure at home. Will call with any change in symptoms. Follow up in 9 months or sooner if needed *This report has been prepared using a voice recognition system. The report was reviewed fo r accuracy, however, sound-alike word errors, addition and/or deletions may occur. If there is any question about this report please contact me. Jazlyn Stanley MD, MPH documented in this encounter Plan of Treatment +--------+---------+ + + + | Date | Type | Specialty | Care Team | Description | +--------+---------+ + + + | 02/01/ | Office | Cardiology | Charis Stanleyrachel, | | | 2019 | Visit | | MD Vikram RICARDO | | | | | | [place], [place] | | | | | | [address] | | | | | | | | +--------+---------+ + + + documented as of this encounter Visit Diagnoses + + | Diagnosis | + + | S/P coronary artery stent placement - Primary Postsurgical percutaneous transluminal | | coronary angioplasty status | + + | Stable angina (HCC) Other and unspecified angina pectoris | + + | Coronary artery disease involving [place] coronary artery of [place] heart without | | angina pectoris | + + documented in this encounter
--- OUTSIDE RECORDS SUMMARY | ~2019-12-09 | XMS | Encounter Summary ---
Demographics + + + | Address | [address] | | | [place] [address] | + + + | Home Phone | | + + + | Preferred Language | Unknown | + + + | Marital Status | | + + + | Synagogue Affiliation | 1041 | + + + | Race | Unknown | + + + | Ethnic Group | Unknown | + + + Author + + + | Author | [facility] | | | and [place] | + + + | Organization | [facility] | | | and [place] | + + + | Address | Unknown | + + + | Phone | Unavailable | + + + Support + + + + + | Name | Relationship | Address | Phone | + + + + + | Lesia Castaneda | ECON | [address] | | | | | [place] [address] | | + + + + + | Rosina Castaneda | ECON | Unknown | | + + + + + | Sandy Zamora | ECON | [address] | | | | [place] | | | | | [address] | | + + + + + Care Team Providers + +------+ + | Care Fishing Hand Name | Role | Phone | + +------+ + | Jerome Ray | PCP | | | MD | | | + +------+ + Reason for Visit +--------+--------+ + | Reason | Onset | Comments | | | Date | | +--------+--------+ + | Other | 10/13/ | | | | 2013 | | +--------+--------+ + Encounter Details +--------+ + + + + | Date | Type | Department | Care Team | Description | +--------+ + + + + | 10/13/ | Telephone | [facility] | Demond Castellon | Other | | 2013 | | MED [facility] | MD [address] | | | | | [facility]Y CL[facility] [address] | | | | | [address] [place] | [place] [address] | | | | | [place] [address] | [phone] | | | | | [phone] | | | +--------+ + + + [...] this encounter Miscellaneous Notes Telephone Encounter - Brigid Vides - 10/13/2013 8:31 AM PDTNeeds a refill of his paul Fang [facility]ses [facility] [place] A M PDTdocumented in this encounter Plan of Treatment +--------+---------+ + + + | Date | Type | Specialty | Care Team | Description | +--------+---------+ + + + | 02/01/ | Office | Cardiology | Jazlyn Almeida, | | | 2019 | Visit | | MD [address]ram [address] | | | | | | [place], [place] | | | | | | [address] | | | | | | | | +--------+---------+ + + + documented as of this encounter Visit Diagnoses + + | Diagnosis | + + | Malignant neoplasm of prostate (HCC) - Primary Malignant neoplasm of prostate | + + documented in this encounter"
--- OUTSIDE RECORDS SUMMARY | ~2019-12-09 | XMS | Encounter Summary ---
Demographics + + + | Address | [address] | | | [place] [address] | + + + | Home Phone [...] + | Lesia Castaneda | ECON | [address] | | | | | [place] [address] | | + + + + + | Rosina Castaneda | ECON | Unknown | | + + + + + | Sandy Zamora | ECON | [address] | | | | [place] | | | | | [address] | | + + + + + Care Team Providers + +------+ + | Care Tire Stripper Name | Role | Phone | + +------+ + | Sergio Thompson MD | PCP | | + +------+ + Reason for Visit +--------+--------+ + | Reason | Onset | Comments | | | Date | | +--------+--------+ + | Other | 08/17/ | | | | 2016 | | +--------+--------+ + Encounter Details +--------+ + + + + | Date | Type | Department | Care Team | Description | +--------+ + + + + | 08/17/ | Telephone | [facility] | Demond Castellon | Other | | 2015 | | [facility] | MD [address] | | | | | ON[facility]OGY CLIN[facility] [address] | [address] | | | | | [address] [place] | [place] [address] | | | | | [place] [address] | [phone] | | | | | [phone] | | | +--------+ + + + [...] this encounter Miscellaneous Notes Telephone Encounter - Ratna Edmonds RN - 08/18/2015 9:15 AM PDTI spoke with Demond who indicated that he had a bone marrow biopsy on Friday and that he has gone through severa l dressings because the bleeding will not stop. The patient said he was using aspirin. I spo ke with Dr. Castellon who asked that the patient stop taking the aspirin for a couple of da ys and to go to the urgent care in [place] to have the site assessed with a possible press ure dressing applied. Patient aware and will follow the instructions provided. elephone Encounter - Terrance Vides - 08/18/2015 8:43 AM PDTJames states that his BMBX site will not stop bleeding. He need s the nurse to call him at home. documented in this encounter Plan of Treatment +--------+---------+ + + + | Date | Type | Specialty | Care Team | Description | +--------+---------+ + + + | 02/01/ | Office | Cardiology | Jazlyn Almeida, | | | 2019 | Visit | | MD Vikram [address] | | | | | | [place] | | | | | | [address] | | | | | | | | +--------+---------+ + + + documented as of this encounter Visit Diagnoses Not on filedocumented in this encounter"
--- OUTSIDE RECORDS SUMMARY | ~2019-12-09 | XMS | Encounter Summary ---
Demographics + + + | Address | [address] | | | [place] [address] | + + + | Home Phone | | + + + | Preferred Language | Unknown | + + + | Marital Status | | + + + | Faith Affiliation | 1041 | + + + | Race | Unknown | + + + | Ethnic Group | Unknown | + + + Author + + + | Author | [facility] | | | and [place] | + + + | Organization | [facility] | | | and [place] | + + + | Address | Unknown | + + + | Phone | Unavailable | + + + Support + + + + + | Name | Relationship | Address | Phone | + + + + + | Lesia Castaneda | ECON | [address] | | | | | [place] [address] | | + + + + + | Rosina Castaneda | ECON | Unknown | | + + + + + | Sandy Zamora | ECON | [address] | | | | [place] | | | | | [address] | | + + + + + Care Team Providers + +------+ + | Care Reconditioning Associate Name | Role | Phone | + +------+ + PCP | Unavailable | + +------+ + Encounter Details +--------+ + + + + | Date | Type | Department | Care Team | Description | +--------+ + + + + | 07/08/ | Hospital | [facility] | | | | 1995 | Encounter | MED CTR MP INTRA OP | | | | | | [address] | | | | | | [place] | | | | | | [address] | | | | | | [phone] | | | +--------+ + + + [...] [place] | | | | | | [address] | | | | | | | | +--------+---------+ + + + documented as of this encounter Visit Diagnoses Not on filedocumented in this encounter"
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
--- OUTSIDE RECORDS SUMMARY | ~2019-12-09 | XMS | Encounter Summary ---
Demographics + + + | Address | [address] | | | [place] [address] | + + + | Home Phone [...] + | Lesia Castaneda | ECON | [address] | | | | | [place] [address] | | + + + + + | Rosina Castaneda | ECON | Unknown | | + + + + + | Sandy Zamora | ECON | [address] | | | | | [place] | | | | | [address] | | + + + + + Care Team Providers + +------+ + | Care Technology Consultant Name | Role | Phone | + +------+ + PCP | Unavailable | + +------+ + Encounter Details +--------+ + + + + | Date | Type | Department | Care Team | Description | +--------+ + + + + | 08/17/ | Hospital | [facility] | | | | 2009 - | Encounter | [facility] | | | | | | CENTER [address] | | | | 08/23/ | | [place] | | | | 2009 | | [address] | | | | | | [phone] | | | +--------+ + + + [...] | | | | | [place], [place] | | | | | | [address] | | | | | | | | +--------+---------+ + + + documented as of this encounter Visit Diagnoses Not on filedocumented in this encounter"
--- OUTSIDE RECORDS SUMMARY | ~2019-12-09 | XMS | Encounter Summary ---
Demographics + + + | Address | [address] | | | [place] [address] | + + + | Home Phone | | + + + | Preferred Language | Unknown | + + + | Marital Status | | + + + | Muslim Affiliation | 1041 | + + + [...] + | Lesia Castaneda | ECON | [address] | | | | | [place] [address] | | + + + + + | Rosina Castaneda | ECON | Unknown | | + + + + + | Sandy Zamora | ECON | [address] | | | | | [place] | | | | | [address] | | + + + + + Care Team Providers + +------+ + | Care Snuff Drier Name | Role | Phone | + [...] | | inal | MD Refugio | [address] [place] | | | | | hemorrhage, | [address] | [address] [place] | | | | | unspecified | [address] [place] | [place] | | | | | gastrointest | [facility] | [address] | | | | | inal | [address] | Phone: | | | | | hemorrhage | Phone: | [phone] | | | | | type | [phone] | Fax: | | | | | | Fax: | [phone] | | | | | | [phone] | | +--------+ + + + + + Reason for Visit + + + | Reason | Comments | + + + | Follow-up | | + + + Encounter Details +--------+ + + + + | Date | Type | Department | Care Team | Description | +--------+ + + + + | 06/16/ | Hospital | [facility] | Demond Castellon | Gastrointestinal | | 2016 | Encounter | [facility] | MD [address] | hemorrhage, | | | | ONCOLOGY CLINIC [address] | [facility] | unspecified | | | | [address] | [place] [address] | gastrointestinal | | | | [place] [address] | [phone] | hemorrhage type | | | | [phone] | | (Primary Dx); CA | | | | | | prostate, adenoca | | | | | | (HCC) [...] + + + | Blood Pressure | 153/69 | 06/16/2015 10:49 AM | | | | | PST | | + + + + + | Pulse | 64 | 06/16/2015 10:49 AM | | | | | PST | | + + + + + | Temperature | 35.8 C (96.4 F) | 06/16/2015 10:49 AM | | | | | PST | | + + + + + | Respiratory Rate | 16 | 06/16/2015 10:49 AM | | | | | PST | | + + + + + | Oxygen Saturation | 97% | 06/16/2015 10:49 AM | | | | | PST | | + + + + + | Inhaled Oxygen | - | - | | | Concentration | | | | + + + + + | Weight | 77.7 kg (171 lb 4.8 | 06/16/2015 10:49 AM | | | | oz) [...] encounter Progress Notes Demond Castellon MD - 06/16/2015 11:45 AM PSTFormatting of this note might be diff erent from the original. Hem-Onc Progress Note [facility] Pt. Name/Age/: Demond Castaneda 84 y.o. 1930 Med. Record Number: [id number] Date of admission: 06/16/2015 Assessment and plan: 1. 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 Stroke, November, 3. Angina Pectoris, Dec, 2013, S/p PCI, [facility], [place] 4. GI bleeding with secondary worsening anemia Discussion today sharing our concern with regard to patient's worsening anemia likely to ag gravate myocardial oxygen delivery as a potential chase factor in patient's ongoing angina of first exertion. His pattern of angina has been relatively stable. His ongoing need however for antiplatelet therapy mandates explanation for GI bleeding. Accordingly we are going to ask our gastroenterology service to see patient for consultation to assess this further. I n the meantime he is going to begin oral iron replacement therapy. His cardiac medications welts remain unchanged. We will then see patient for short-term follow-up. Subjective: The patient chart and medications were reviewed in detail and the patient was seen and exam ined. Demond Castaneda is a 84 y.o. male returns today on an add-on basis because of worsening anem ia attributable to gastrointestinal bleeding. Patient had been well at the time of a most recent visit having recovered from an earlier s troke and then PCI procedure for ischemic heart disease in the summer of year 2013. Patient has had long-standing biochemical relapse of prostate cancer but exhibits a very slow patte rn of clinical progression which to date has not produced untoward effects and for which pat ient not receiving therapy. Over the new year patient experiencing worsening angina. He describes going for walks abou t [address] with experience a sense of anterior chest heaviness with radiation into his l eft and right arm. These are symptoms similar to his earlier episode of ischemic pain from the year before. As a result he was seen on emergency basis at [facility] in [facility] or cardiac workup according to patient negative for new signs of ischemic cardia c injury. His blood count however that time was noted to be lower. In the subsequent days patient does recall at least one episode of melanotic stool. He had been in to see Dr. Cisneros er, his primary care physician at OR here confirming the presence of an anemia but with test ing that has been nondiagnostic. PSH: Reviewed, no changes to admission H&P. Review of Systems: Constitutional: Denies fatigue. Denies high fevers, shaking chills, anorexia, nausea, vomit ing. Reports weight loss has been about 8 pounds in the last 3-4 months not trying to loose, denies night sweats. Appetite without changes. Ear, Nose, Mouth, Throat: Denies odynophagia, reports dysphagia with big pills denies tinni tus. Cardiovascular: Denies shortness of breath, dyspnea on exertion, chest pain, palpitations o r orthopnea. Respiratory: Denies cough, hemoptysis, or sputum production. Gastrointestinal: Denies abdominal pain, constipation, diarrhea, melena, or bright red bloo d per rectum. Reports that he doesn't see any blood but a test showed blood Genitourinary: Denies hematuria or dysuria. Musculoskeletal: Denies joint pain or tenderness. Neurologic: Denies headache, visual changes, or numbness/tingling of the extremities. Endocrine: Denies peripheral edema or heat/cold intolerance. Hematologic: Denies spontaneous bruising or bleeding. If he cuts himself he has a hard time getting it to stop Integumentary: Denies rash, wounds or other skin concerns. Pain: Denies pain. Review of systems as above otherwise negative Scheduled Medications: Continuous Infusions: PRN Meds:. Allergy: No Known Allergies Objectives: Temp: 35.8 C (96.4 F) BP: 153/69 mmHg Pulse: 64 Resp: 16 SpO2: 97 % on Min/Max Temp past 24 hours:Temp Av.8 C (96.4 F) Min: 35.8 C (96.4 F) Max: 3 5.8 C (96.4 F) No intake or output data in the 24 hours ending 06/16/15 1145 Wt. Admission: Weight: 77.7 kg (171 lb 4.8 oz) Wt. Current: Weight: 77.7 kg (171 lb 4.8 oz) Physical Exam: Exam: General: The patient is alert and oriented. No acute distress. Psychiatric: Normal mood and affect. Diagnostic studies: Complete blood count from April, disclosing decline in hemoglobin to 8.4 g percent with erythrocyte count of 2.86 million. These are lower than testing from earlier in dmitry n obtained here. Additional testing noted normal B-12, folate and iron studies. Electronically signed by: Demond Castellon, 06/16/2015 11:45 [facility] TIME SPENT 25 MIN. > 50% AT BEDSIDE, WITH FAMILY/PATIENT IN CARE AND FOUNDER AND CEO ON UNIT AND CO ORDINATION OF CARE Portions of this chart may have been created with [employer] voice recognition software. Occasi onal wrong-word or sound-alike substitutions may have occurred due to the inherent epperson itations of voice recognition software. Please read the chart carefully and recognize, using context, where these substitutions have occurred. Liliana Whitfield RN - 06/16/2015 10:57 AM PSTREVIEW OF SYSTEMS Constitutional: Denies fatigue. Denies high fevers, shaking chills, anorexia, nausea, vomit ing. Reports weight loss has been about 8 pounds in the last 3-4 months not trying to loose, denies night sweats. Appetite without changes. Ear, Nose, Mouth, Throat: Denies odynophagia, reports dysphagia with big pills denies tinn itus. Cardiovascular: Denies shortness of breath, dyspnea on exertion, chest pain, palpitations o r orthopnea. Respiratory: Denies cough, hemoptysis, or sputum production. Gastrointestinal: Denies abdominal pain, constipation, diarrhea, melena, or bright red bloo d per rectum. Reports that he doesn't see any blood but a test showed blood Genitourinary: Denies hematuria or dysuria. Musculoskeletal: Denies joint pain or tenderness. Neurologic: Denies headache, visual changes, or numbness/tingling of the extremities. Endocrine: Denies peripheral edema or heat/cold intolerance. Hematologic: Denies spontaneous bruising or bleeding. If he cuts himself he has a hard trae e getting it to stop Integumentary: Denies rash, wounds or other skin concerns. Pain: Denies pain. Note:Here for solution for anemia problem. In may he had a episode where he had pain i n both arms and shortness of breath they couldn't find any problems the shortness's of breat h has resolved but the pain in the arms remains. My chart:active do cumented in this encounter Plan of Treatment +--------+---------+ + + + | Date | Type | Specialty | Care Team | Description | +--------+---------+ + + + | 02/01/ | Office | Cardiology | Jazlyn Almeida, | | | 2019 | Visit | | MD Vikram RICARDO | | | | | | [place] | | | | | | [id number] | | | | | | | | +--------+---------+ + + + + + +--------+ + + | Name | Type | Priori | Associated Diagnoses | Order Schedule | | | | ty | | | + + +--------+ + + | * [facility] [place] | Outpatient | Routin | Gastrointestinal | Ordered: 06/16/2015 | | Gastroenterology - | Referral | e | hemorrhage, | | | AMB Referral | | | unspecified | | | | | | gastrointestinal | | | | | | hemorrhage type | | + + +--------+ + + documented as of this encounter Visit Diagnoses + + | Diagnosis | + + | Gastrointestinal hemorrhage, unspecified gastrointestinal hemorrhage type - Primary | + + | CA prostate, adenoca (HCC) Malignant neoplasm of prostate | + + documented in this encounter"
--- OUTSIDE RECORDS SUMMARY | ~2019-12-09 | XMS | Encounter Summary ---
Demographics + + + | Address | [address] | | | [place] [address] | + + + | Home Phone [...] + | Lesia Castaneda | ECON | [address] | | | | | [place] [address] | | + + + + + | Rosina Castaneda | ECON | Unknown | | + + + + + | Sandy Zamora | ECON | [address] | | | | | [place] | | | | | [address] | | + + + + + Care Team Providers + +------+ + | Care Pressure Supervisor Name | Role | Phone | + +------+ + | Sergio Thompson MD | PCP | | + +------+ + Encounter Details +--------+ + + + + | Date | Type | Department | Care Team | Description | +--------+ + + + + | 09/26/ | Hospital | [facility] | Demond Castellon | CA prostate, adenoca | | 2016 | Encounter | [facility] | MD [address] | (HCC) (Primary Dx); | | | | ONCOLOGY CLINIC [address] | [facility] | 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 | chronic blood loss; | | | | [phone] | | Personal history of | | | | | | malignant neoplasm | | | | | | of prostate; | | | | | | Acquired hemolytic | | | | | | anemia (HCC); | | | | | | Cerebrovascular | | | | | | accident (CVA), | | | | | | unspecified | | | | | | mechanism (HCC) | +--------+ + + + + [...] | | | | | [place] | | | | | | [address] | | | | | | | | +--------+---------+ + + + documented as of this encounter Procedures + +--------+ + + + | Procedure Name | Priori | Date/Time | Associated Diagnosis | Comments | | | ty | | | | + +--------+ + + + | CBC W/AUTO | STAT | 09/27/2015 | Acquired hemolytic | Results for this | | DIFFERENTIAL | | 8:59 AM | anemia (HCC) | procedure are in the | | | | PDT | | results section. | + +--------+ + + + | IRON AND TRANSFERRIN | STAT | 09/27/2015 | Iron deficiency | Results for this | | | | 8:59 AM | anemia due to | procedure are in the | | | | PDT | chronic blood loss | results section. | | | | | Personal history of | | | | | | malignant neoplasm | | | | | | of prostate | | + +--------+ + + + | PSA, DIAGNOSTIC | Routin | 09/27/2015 | Iron deficiency | Results for this | | | e | 8:59 AM | anemia due to | procedure are in the | | | | PDT | chronic blood loss | results section. | | | | | Personal history of | | | | | | malignant neoplasm | | | | | | of prostate | | + +--------+ + + + | LACTATE | STAT | 09/27/2015 | Acquired hemolytic | Results for this | | DEHYDROGENASE | | 8:59 AM | anemia (HCC) | procedure are in the | | | | PDT | | results section. | + +--------+ + + + | COMPREHENSIVE | STAT | 09/27/2015 | Iron deficiency | Results for this | | METABOLIC PANEL | | 8:59 AM | anemia due to | procedure are in the | | | | PDT | chronic blood loss | results section. | | | | | Personal history of | | | | | | malignant neoplasm | | | | | | of prostate | | + +--------+ + + + documented in this encounter Results Lactate Dehydrogenase (09/27/2015 8:59 AM PDT) + +---------+ + + + | Component | Value | Ref Range | Performed | Pathologist | | | | | At | Signature | + +---------+ + + + | LDH TOTAL | 183 (H) | 91 - 180 U/L | [facility] | | | | | | [facility] | | | | | | MEDICAL | | | | | | CENTER - | | | | | | LABORATORY | | + +---------+ + + + + + | Specimen | + + | Blood | + + + + + + + | Performing | Address | [facility] | Phone Number | | Organization | | | | + + + + + | [facility] | [address] | [place] | [phone] | | [facility] | | [address] | | | - LABORATORY | | [...] [address] | [place] | [phone] | | [facility] | | [address] | | | - LABORATORY | | | | + + + + + Comprehensive Metabolic Panel (09/27/2015 8:59 AM PDT) + + + [...] | 1.20 | 0.60 - 1.30 | [facility] | | | | | mg/dL | [facility] | | | | | | MEDICAL | | | | | | CENTER - | | | | | | LABORATORY | | + + + + + + | eGFR if not | 58 (L)Comment: | >=60 | [facility] | | | [facility] | GLOMERULAR FILTRATION | mL/min/1.73m2 | [facility] | | | [facility] | RATE,ESTIMATED | | MEDICAL | | | | mL/min/1.78h0Pirh than | | CENTER - | | [...] 4.4 | 3.2 - 5.0 g/dL | [facility] | | | | | [...] + + + + | ALT | 22Comment: This is an | 6 - 45 [...] + + + + | Alkaline | 86Comment: This is an | 40 - 110 U/L | [facility] | | | Phosphatase | appended report. These | | [facility] | | | | results have been | | MEDICAL | | | | appended to a previously | | CENTER - | | | | preliminary verified | | LABORATORY | | | | report. | | | | + + + + + + | Globulin | 2.3 | 2.1 - 3.8 g/dL | [facility] | | | | | | [facility] | | | | | | MEDICAL | | | | | | CENTER - | | | | | | LABORATORY | | + + + + + + | Albumin/Angeles | 1.9 | 0.8 - 2.0 | [facility] | | | bulin Ratio | | | [facility] | | | | | | MEDICAL | | | | | | CENTER - | | | | | | LABORATORY | | + + + + + + | BUN/Creatin | 21.7 [...] [address] | [place] | [phone] | | [facility] | | [address] | | | - LABORATORY | | | | + + + + + Iron and Transferrin (09/27/2015 8:59 AM PDT) + + + + + + | Component | Value | Ref Range | Performed | Pathologist | | | | | At | Signature | + + + + + + | Iron | 61 | 50 - 160 ug/dL | [facility] | | | | | | [facility] | | | | | | MEDICAL | | | | | | CENTER - | | | | | | LABORATORY | | + + + + + + | TRANSFERRIN | 197.0 (L) | 240.0 - 480.0 | [facility] | | | | | mg/dL | [facility] | | | | | | MEDICAL | | | | | | CENTER - | | | | | | LABORATORY | | + + + + + + | TIBC | 276 | 235 - 425 ug/dL | [facility] | | | | | | [facility] | | | | | | MEDICAL | | | | | | CENTER - | | | | | | LABORATORY | | + + + + + + | % | 22.1 | 20.0 - 55.0 % | [facility] | | | SATURATION | | | [facility] | | [...] [address] | [place] | [phone] | | [facility] | | [address] | | | - LABORATORY | | | | + + + + + PSA, Diagnostic (09/27/2015 8:59 AM PDT) + + + + + + | Component | Value | Ref Range | Performed | Pathologist | | | | | At | Signature | + + + + + + | PSA | 5.14 (H) | <=4.00 ng/mL | [facility] | [...] [address] | [place] | [phone] | | [facility] | | [address] | | | - LABORATORY | | [...] malignant neoplasm of prostate | + + | Acquired hemolytic anemia (HCC) Acquired hemolytic anemia, unspecified | + + | Cerebrovascular accident (CVA), unspecified mechanism (HCC) | + + documented in this encounter"
--- OUTSIDE RECORDS SUMMARY | ~2019-12-09 | XMS | Encounter Summary ---
Demographics + + + | Address | [address] | | | [place] [address] | + + + | Home Phone [...] + | Lesia Castaneda | ECON | [address] | | | | | [place] [address] | | + + + + + | Rosina Castaneda | ECON | Unknown | | + + + + + | Sandy Zamora | ECON | [address] | | | | [place] | | | | | [address] | | + + + + + Care Team Providers + +------+ + | Care Medical Program Specialist Name | Role | Phone | + +------+ + | Sergio Thompson MD | PCP | | + +------+ + Reason for Visit Evaluate & Treat (Routine) +--------+--------+ + + + + | Status | Reason | Specialty | Diagnoses / | Referred By | Referred To | | | | | Procedures | Contact | Contact | +--------+--------+ + + + + | Closed | | Oncology | Diagnoses | | Ravinder, | | | | | ICD-10-CM: | Amalia Castellon | | | | | C61 | Demond | MD [facility] | | | | | ICD-9-CM: | MD Refugio | [address] | | | | | [address] | [address] | [address] [place] | | | | | Procedures | [address] [place] | [place], [place] | | | | | [address] | [place], [place] | [address] Phone: | | | | | | [address] | [phone] | | | | | | Phone: | Fax: | | | | | | [phone] | [phone] | | | | | | Fax: | | | | | | | [phone] | | +--------+--------+ + + + + Encounter Details +--------+ + + + + | Date | Type | Department | Care Team | Description | +--------+ + + + + | 08/12/ | [facility] | [facility] | Demond Castellon | CA prostate, adenoca | | 2018 | Encounter | [facility] | MD [facility] [address] | (HCC) (Primary Dx); | | | | [facility] [address] | Cerebrovascular | | | | [address] | [place] [address] | accident (CVA), | | | | [place] [address] | [phone] | unspecified | | | | [phone] | | mechanism (HCC); | | | | | | Closed right hip | | | | | | fracture, initial | | | | | | encounter ([facility]) | +--------+ + + + + Social [...] + + + | Blood Pressure | 120/58 | 08/12/2017 10:59 AM | | | | | PDT | | + + + + + | Pulse | 58 | 08/12/2017 10:59 AM | | | | | PDT | | + + + + + | Temperature | 36.2 C (97.2 F) | 08/12/2017 10:59 AM | | | | | PDT | | + + + + + | Respiratory Rate | 16 | 08/12/2017 10:59 AM | | | | | PDT | | + + + + + | Oxygen Saturation | 98% | 08/12/2017 10:59 AM | | | | | PDT | | + + + + + | Inhaled Oxygen | - | - | | | Concentration | | | | + + + + + | Weight | 76.2 kg (167 lb 15.9 | 08/12/2017 10:59 AM | | | | oz) | PDT | | + + + + + | Height | - | - | | + + + + + | Body Mass Index | 22.17 | 11/19/2015 8:00 PM | | | [...] encounter Progress Notes Demond Castellon MD - 08/12/2017 11:14 AM PDTFormatting of this note might be diff erent from the original. Hem-Onc Progress Note [facility] Pt. Name/Age/: Demond Castaneda 86 y.o. 1930 Med. Record Number: [id number] Date of admission: (Not on file) Assessment and plan: 1. 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 Stroke, November, 3. Angina Pectoris, Dec, 2013, S/p PCI, [place], [place], [place] 4. Fall hip fracture, November,, S/p right THR, Dr [place] 5. S/p right TNR, 2016 A counseling session today first to review laboratory testing including today's PSA unchang ed in remaining at the low double digits. We discussed the very slow trajectory of change o f PSA over time suggesting that patient may never experience symptoms referable to underlyin g prostate cancer. We also brought to patient's attention the emerging relationship between statin therapy as an antilipid and its suppressive effect on growth of prostate cancer. Recommendation the patient follow-up with his primary care physician for lipid therapy tiesha galloway. Oncology follow-up now can be on an annual basis. Subjective: The patient chart and medications were reviewed in detail and the patient was seen and exam ined. Demond Castaneda is a 86 y.o. male returns today for longitudinal follow-up monitoring a biochemical relapse of prostate cancer and anemia of chronic disease. Interim history mostly unremarkable with patient doing well through the flu season. 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 He has not seen a health professor over the past year although he is c ontinuing on a program of statin antilipid therapy. Other important medications include com bined antiplatelet therapy and vitamin D. PSH: Reviewed, no changes to admission H&P. Past Medical History: Diagnosis Date Actinic keratosis Anemia Basal cell carcinoma of skin CAD (coronary artery disease) Carotid stenosis CVA (cerebral vascular accident) (HCC) Eczema Femur fracture, left (HCC) Fx eight/more rib-closed H/O: facial fractures Hearing loss wears hearing aids Osteoarthritis Pes planus Wears dentures full upper Review of Systems: Constitutional: Denies fatigue. Denies [...] per rectum. Genitourinary: Denies hematuria or dysuria. Musculoskeletal:Intermittent pain in the right hip and right knee-unchanged. Neurologic: Denies headache, visual changes, or numbness/tingling [...] on file prior to encounter. Objectives: Temp: 36.2 C (97.2 F) BP: 120/58 Pulse: 58 Resp: 16 SpO2: 98 % on Min/Max Temp past 24 hours:Temp Av.2 C (97.2 F) Min: 36.2 C (97.2 F) Max: 3 6.2 C (97.2 F) No intake or output data in the 24 hours ending 08/12/17 1114 Wt. Admission: Weight: 76.2 kg (167 lb 15.9 oz) Wt. Current: Weight: 76.2 kg (167 lb 15 .9 oz) Physical Exam: Exam: General: The patient is alert and oriented. No acute distress. Genitourinary: Deferred. Extremities: Nontender, no erythema, no [...] the Assessment and Plan. Recent Labs Lab 08/12/17 0928 WBC 4.3 HGB 10.3* HCT 29.2* PLT 203 Recent Labs Lab 08/12/17 0928 NA 139 K 3.8 CL 107 CO2 27 BUN 26* CREA 1.21 GLU 111* CALCIUM 9.5 BILITOT 3.2* AST 20 ALT 12 ALKPHOS 83 ALBUMIN 4.2 Electronically signed by: Demond Castellon, 08/12/2017 11:14 [facility] TIME SPENT 20 MIN. 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 Occasi onal wrong-word or sound-alike substitutions may have occurred due to the inherent epperson itations of voice recognition software. Please read the chart carefully and recognize, using context, where these substitutions have occurred. Estelita Paez CMA - 08/12/2017 11:02 AM PDTREVIEW O F SYSTEMS Constitutional: Denies fatigue. Denies high fevers, [...] rectum. Genitourinary: Denies hematuria or dysuria. Musculoskeletal: Intermittent pain in the right hip and right knee-unchanged. Neurologic: Denies headache, visual changes, or numbness/tingling of the extremities. Endocrine: Denies peripheral edema or heat/cold intolerance. Hematologic: Denies spontaneous bruising or bleeding. Integumentary: Denies rash, wounds or other skin concerns. Pain: Denies pain. Note: Pt is here for a 6 month follow up and labs My chart: Active documented in this encounter Plan of Treatment +--------+---------+ + + + | Date | Type | Specialty | Care Team | Description | +--------+---------+ + + + | 02/01/ | Office | Cardiology | Jazlyn Almeida, | | | 2019 | Visit | | MD Vikram RICARDO | | | | | | [place] | | | | | | [id number] | | | | | | | | +--------+---------+ + + + documented as of this encounter Procedures + +--------+ + + + | Procedure Name | Priori | Date/Time | Associated Diagnosis | Comments | | | ty | | | | + +--------+ + + + | LABS - EXTERNAL SCAN | | 01/12/2018 | | Results for this | | | | 12:00 AM | | procedure are in the | | | | PDT | | results section. | + +--------+ + + + | CBC WITH | STAT | 08/12/2017 | CA prostate, | Results for this | | DIFFERENTIAL | | 9:28 AM | adenoca (HCC) | procedure are in the | | | | PDT | Cerebrovascular | results section. | | | | | accident (CVA), | | | | | | unspecified | | | | | | mechanism (HCC) | | | | | | Closed right hip | | | | | | fracture, initial | | | | | | encounter (HCC) | | + +--------+ + + + | PSA, DIAGNOSTIC | STAT | 08/12/2017 | CA prostate, | Results for this | | | | 9:28 AM | adenoca (HCC) | procedure are in the | | | | PDT | Cerebrovascular | results section. | | | | | accident (CVA), | | | | | | unspecified | | | | | | mechanism (HCC) | | | | | | Closed right hip | | | | | | fracture, initial | | | | | | encounter (HCC) | | + +--------+ + + + | COMPREHENSIVE | STAT | 08/12/2017 | CA prostate, | Results for this | | METABOLIC PANEL | | 9:28 AM | adenoca (HCC) | procedure are in the | | | | PDT | Cerebrovascular | results section. | | | | | accident (CVA), | | | | | | unspecified | | | | | | mechanism (HCC) | | | | | | Closed right hip | | | | | | fracture, initial | | | | | | encounter (HCC) | | + +--------+ + + + documented in this encounter Results LABS - EXTERNAL SCAN (01/12/2018 12:00 AM PDT) + + + | Narrative | Performed At | + + + | Ordered by an | | | unspecified provider. | | + + + PSA, Diagnostic (08/12/2017 9:28 AM PDT) + + + + + + | Component | Value | Ref Range | Performed | Pathologist | | | | | At | Signature | + + + + + + | PSA | 13.64 (H) | <=4.00 ng/mL | [facility] | [...] ST. | [address] | [place] | [phone] | | [facility] | | [address] | | | - LABORATORY | | | | + + + + + CBC with Differential (08/12/2017 9:28 AM PDT) + + + + + [...] + + + | Red Blood | 3.02 (L) | 4.30 - 5.70 | [facility] | | | Cells | | M/uL | [facility] | [facility] | [facility] | | | | | | [facility] - | | | | | | LABORATORY | | + + + + + + | Hemoglobin | 10.3 (L) | 13.5 - 18.0 | [facility] | | | | | g/dL | [facility] | | | | [facility] | [facility] | | | | | | C[facility] - | | | | | | LABORATORY | | + + + + + + | Hematocrit | 29.2 (L) | 40.0 - 51.0 % | [facility] | | | | | | [facility] | | | [facility] | [facility] | | | | | | [facility] - | | | | | | LABORATORY | | + + + + + + | MCV | 96.8 | 83.0 - 101.0 fL | [facility] [...] + + + + | MCHC | 35.4 | 32.0 - 36.0 | [facility] | | | | | g/dL | [facility] | | | [facility] | [facility] | | | | | | [facility] - | | | | | | LABORATORY | | + + + + + + | RDW-CV | 17.7 (H) | <15.0 % | [facility] | | | | | | [facility] | [facility] | [facility] | | | | | | [facility] - | | | | | | LABORATORY | | + + + + + + | Platelet | 203 | 140 - 440 K/uL | [facility] | | | Count | | | [facility] | | | [facility] | [facility] | | | [facility] | | [facility] - | | | | | | LABORATORY | | + + + + + + | MPV | 7.2 | fL | [facility] | | | | | | [facility] | | | | [facility] | [facility] | | | | | | C[facility] - | | | | | | LABORATORY | | + + + + + + | % | 64.4 | 45.0 - 82.0 % | [facility] | | | Neutrophils | | | [facility] | | | | | | [facility] | | | | | | CENTER - | | | | | | LABORATORY | | + + + + + + | % | 23.9 | 20.0 - 45.0 % | [facility] | | | Lymphocytes | | | [facility] | | | | | | [facility] | | | | | | CENTER - | | | | | | LABORATORY | | + + + + + + | % Monocytes | 9.0 | 4.0 - 12.0 % | [facility] [...] | % Basophils | 1.2 (H) | 0.0 - 1.0 % | [facility] | | | | | | [facility] | | | | | | [facility] | | | | | | CENTER - | | | | | | LABORATORY | | + + + + + + | Absolute | 2.80 | 1.80 - 8.50 | [facility] | | | Neutrophils | | K/uL | [facility] | | | | | | [facility] | | | | | | CENTER - | | | | | | LABORATORY | | + + + + + + | Absolute | 1.00 | 0.60 - 3.20 | [facility] | [...] [address] | [place] | [phone] | | [facility] | | [address] | | | - LABORATORY | | | | + + + + + Comprehensive Metabolic Panel (08/12/2017 9:28 AM PDT) + + + + + [...] + + + + | Glucose | 111 (H) | 70 - 109 mg/dL | [...] [facility] | | | | | | [facility] | | | | | | [facility] | | | | | | CENTER - | | | | | | LABORATORY | | + + + + + + | Creatinine | 1.21 | 0.60 - 1.30 | [facility] | | | | | mg/dL [...] mL/min/1.73m2 | [facility] | | | [facility] | RATE,ESTIMATED | | MEDICAL | | | | mL/min/1.65s2Hdwf than | | CENTER - | | [...] + + + + | Albumin | 4.2 | 3.2 - 5.0 g/dL | [facility] | | | | | | [facility] | | | | | | MEDICAL | | | | | | CENTER - | | | | | | LABORATORY | | + + + + + + | Bilirubin | 3.2 (H)Comment: This is | 0.1 - 1.5 mg/dL | [facility] | | | Total | an appended report. | | [facility] | | | | These results [...] + + + + | Alkaline | 83Comment: This is an | 40 - 110 [...] + + + + | Globulin | 3.1 | 2.1 - 3.8 g/dL | [facility] | | | | | | [facility] | | | | | | [facility] | | | | | | CENTER - | | | | | | LABORATORY | | + + + + + + | Albumin/Angeles | 1.4 | 0.8 - 2.0 | [facility] | | | bulin Ratio | | | [facility] | | | | | | [facility]ICAL | | | | | | CENTER - | | | | | | LABORATORY | | + + + + + + | BUN/Creatin | 21.5 | | [facility] | | | ine [...] [address] | [place] | [phone] | | [facility] | | [address] | | | - LABORATORY | | | | + + + + + documented in this encounter Visit Diagnoses + + | Diagnosis | + + | CA prostate, adenoca (HCC) - Primary Malignant neoplasm of prostate | + + | Cerebrovascular accident (CVA), unspecified mechanism (HCC) | + + | Closed right hip fracture, initial encounter (HCC) | + + documented in this encounter"
--- OUTSIDE RECORDS SUMMARY | ~2019-12-09 | XMS | Encounter Summary ---
Demographics + + + | Address | [address] | | | [place] [address] | + + + | Home Phone | | + + + | Preferred Language | Unknown | + + + | Marital Status | | + + + | Gnosticist Affiliation | [id number] | + + + | Race | Unknown | + + + | Ethnic Group | Unknown | + + + Author + + + | Author | [facility] | | | and [place] | + + + | Organization | [facility] | | | and [place] | + + + | Address | Unknown | + + + | Phone | Unavailable | + + + Support + + + + + | Name | Relationship | Address | Phone | + + + + + | Lesia Castaneda | ECON | [address] | | | | | [place] [address] | | + + + + + | Rosina Castaneda | ECON | Unknown | | + + + + + | Sandy Zamora | ECON | [address] | | | | [place] | | | | | [address] | | + + + + + Care Team Providers + +------+ + | Care Oracle Ebs Architect Name | Role | Phone | + +------+ + | Sergio Thompson MD | PCP | | + +------+ + Encounter Details +--------+ + + + + | Date | Type | Department | Care Team | Description | +--------+ + + + + | 06/16/ | Orders Only | [facility] | Justyn Pickering | | | 2014 | | CARDIOLOGY [place] | MD Valery Metzger | | | | | [address] | [address] [place], [place] | | | | | [place], [place] | [address] | | | | | [address] | | | | | | [phone] | | | +--------+ + + + [...] [place] | | | | | | [address] | | | | | | | | +--------+---------+ + + + documented as of this encounter Procedures + +--------+ + + + | Procedure Name | Priori | Date/Time | Associated Diagnosis | Comments | | | ty | | | | + +--------+ + + + | CV CARDIAC PROCEDURE | Routin | 06/16/2014 | | Results for this | | | e | 5:40 PM | | procedure are in the | | | | PST | | results section. | + +--------+ + + + documented in this encounter Results CV CARDIAC PROCEDURE (06/16/2014 5:40 PM PST) + + | Specimen | + + | | + + + + + | Narrative | Performed At | + + + | | | | | | | PROCEDURES 1. Left heart catheterization. 2. Selective coronary | | | angiogram. 3. Left ventriculogram. 4. 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 HISTORY Mr. Castaneda is an 83-year-old gentleman who | | | started to have chest pain since February 2014 with a typical | | | presentation, as the pain is precipitated by physical exertion and | | | relieved by rest, and he was referred for left heart catheterization | | | for further evaluation. DESCRIPTION OF PROCEDURE The procedure | | | details, alternatives, and complications were explained for the | | | patient. Informed consent was obtained. Patient was brought to the | | | room and prepped in sterile fashion. Time out was performed. Conscious | | | sedation administered by independent observer. The right wrist | | | anesthetized with 1% lidocaine. Right radial artery cannulized with a | | | 6-Vietnamese Slender sheath. Then 2.5 mg verapamil, 200 mcg | | | nitroglycerin, and 5000 international units heparin were given | | | through the sheath. Over a 260 exchange wire, 5-Vietnamese FL4 diagnostic | | | catheter advanced to the ascending aorta, selectively engaging the | | | left main. Contrast was injected. Selective angiogram for the left | | | main, LAD, left circumflex artery performed in different views. Over | | | guidewire it was exchanged for 5-Vietnamese FR4 diagnostic catheter, | | | advanced to the ascending aorta, selectively engaging the RCA. | | | Contrast was injected. Selective angiogram for the RCA was performed | | | in different views. Over guidewire it was exchanged for a 5-Vietnamese | | | angled pigtail catheter, advanced to the left ventricle. Left | | | ventriculogram was performed in the MOORE view. The patient was | | | noted to have 100% occluded large second obtuse marginal bifurcating | | | with filling from the [id number] collaterals. Decision was to | | | proceed with angioplasty. Patient was given angioplasty to have an ACT | | | more than 200. Over guidewire, the diagnostic pigtail catheter | | | exchanged for a 6-Vietnamese JL4 guide that selectively engaged the left | | | main. I tried to advance a short BMW universal wire to the second | | | obtuse marginal, but I had difficulty going through the chronic total | | | occlusion since the lesion was involved in the ostium, and I did not | | | have enough backup. So, I exchanged the BMW for a 300 cm Whisper | | | wire, and that was advanced over a FineCross which was placed in the | | | proximal part of the occlusion, but the Whisper wire kept going into | | | side branch at the occlusion. I could not advance the wire into the | | | proper pass, so I removed my equipment and an angiogram showed mild | | | perforation at the side branch near the total occlusion. Decision was | | | not to proceed with any further intervention. Over guidewire, the | | | guide was removed. Sheath was removed. TR band was applied with good | | | hemostasis. Patient was transferred to the recovery area in stable | | | condition, to be observed overnight for any possible complications | | | and a limited echocardiogram in the morning to rule out any | | | significant pericardial effusion. FINDINGS HEMODYNAMICS 1. | | | Systemic pressure 98/46. 2. Left ventricular end-diastolic pressure | | | 19. 3. No significant gradient across the aortic valve. ANGIOGRAM | | | 1. Left main short, no significant stenosis. 2. LAD moderately | | | calcified, no significant stenosis, wrapping around the apex. 3. | | | First diagonal no significant stenosis, normal in size. Second | | | diagonal normal size, 20% stenosis. Third diagonal is absent. 4. | | | Left circumflex artery is a dominant artery with no significant | | | stenosis. 5. First obtuse marginal is tiny, no significant stenosis. | | | Second obtuse marginal is large, bifurcating, supplying the second | | | and the third obtuse marginal territories, and it is 100% occluded, | | | filled by [id number] collaterals. Third obtuse marginal is absent. | | | 6. There are 3 left posterolateral arteries. All are small, no | | | significant stenosis. 7. Left PDA is normal size, no significant | | | stenosis. 8. RCA is a nondominant artery with no significant | | | stenosis. 9. Left dominant circulation. LEFT VENTRICULOGRAM Left | | | ventriculogram showed an EF of 40% with severe hypokinesia in the | | | distal inferior wall and no significant mitral valve regurgitation. | | | COMPLICATIONS Perforation at the small side branch at the chronic | | | total occlusion. ESTIMATED BLOOD LOSS Less than 50 mL. | | | CONCLUSIONS 1. New-onset stable angina. 2. 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 3. Mild systolic dysfunction with ejection fraction | | | of 40%. 4. Unsuccessful attempt for angioplasty for the second obtuse | | | marginal. RECOMMENDATIONS 1. Limited 2D echocardiogram in the | | | morning to rule out any pericardial effusion. 2. Aggressive medical | | | management and risk factor modifications. 3. If there is recurrent | | | angina in spite of medical management, consider advanced PCI in a [facility] | | | center. 4. If advanced [facility] angioplasty is unsuccessful, consider | | | single-vessel bypass surgery. Read by DM MARRERO MD 06/17/2014 | | | 12:11 A | | | 10:19 AM | | + + + + + | Procedure Note | + + | Gurpreet eFrreira Conversion - 01/15/2019 10:17 AM PDT | | | | PROCEDURES | | 1. Left heart catheterization. | | 2. Selective coronary angiogram. | | 3. Left ventriculogram. | | 4. An attempt for angioplasty for 100% chronic total occlusion of the | | second obtuse marginal with no success. | | | | HISTORY | | Mr. Castaneda is an 83-year-old gentleman who started to have chest pain | | since February 2014 with a typical presentation, as the pain is | | precipitated by physical exertion and relieved by rest, and he was | | referred for left heart catheterization for further evaluation. | | | | DESCRIPTION OF PROCEDURE | | The procedure details, alternatives, and complications were explained for | | the patient. Informed consent was obtained. Patient was brought to the | | room and prepped in sterile fashion. Time out was performed. Conscious | | sedation administered by independent observer. The right wrist | | anesthetized with 1% lidocaine. Right radial artery cannulized with a | | 6-Vietnamese Slender sheath. Then 2.5 mg verapamil, 200 mcg nitroglycerin, and | | 5000 international units heparin were given through the sheath. Over a 260 | | exchange wire, 5-Vietnamese FL4 diagnostic catheter advanced to the ascending | | aorta, selectively engaging the left main. Contrast was injected. | | Selective angiogram for the left main, LAD, left circumflex artery | | performed in different views. Over guidewire it was exchanged for 5-Vietnamese | | FR4 diagnostic catheter, advanced to the ascending aorta, selectively | | engaging the RCA. Contrast was injected. Selective angiogram for the RCA | | was performed in different views. Over guidewire it was exchanged for a | | 5-Vietnamese angled pigtail catheter, advanced to the left ventricle. Left | | ventriculogram was performed in the MOORE view. | | | | The patient was noted to have 100% occluded large second obtuse marginal | | bifurcating with filling from the [id number] collaterals. Decision was | | to proceed with angioplasty. Patient was given angioplasty to have an ACT | | more than 200. Over guidewire, the diagnostic pigtail catheter exchanged | | for a 6-Vietnamese JL4 guide that selectively engaged the left main. I tried | | to advance a short BMW universal wire to the second obtuse marginal, but I | | had difficulty going through the chronic total occlusion since the lesion | | was involved in the ostium, and I did not have enough backup. So, I | | exchanged the BMW for a 300 cm Whisper wire, and that was advanced over a | | FineCross which was placed in the proximal part of the occlusion, but the | | Whisper wire kept going into side branch at the occlusion. I could not | | advance the wire into the proper pass, so I removed my equipment and an | | angiogram showed mild perforation at the side branch near the total | | occlusion. Decision was not to proceed with any further intervention. | | | | Over guidewire, the guide was removed. Sheath was removed. TR band was | | applied with good hemostasis. Patient was transferred to the recovery area | | in stable condition, to be observed overnight for any possible | | complications and a limited echocardiogram in the morning to rule out any | | significant pericardial effusion. | | | | FINDINGS | | | | HEMODYNAMICS | | 1. Systemic pressure 98/46. | | 2. Left ventricular end-diastolic pressure 19. | | 3. No significant gradient across the aortic valve. | | | | ANGIOGRAM | | 1. Left main short, no significant stenosis. | | 2. LAD moderately calcified, no significant stenosis, wrapping around the | | apex. | | 3. First diagonal no significant stenosis, normal in size. Second diagonal | | normal size, 20% stenosis. Third diagonal is absent. | | 4. Left circumflex artery is a dominant artery with no significant | | stenosis. | | 5. First obtuse marginal is tiny, no significant stenosis. Second obtuse | | marginal is large, bifurcating, supplying the second and the third | | obtuse marginal territories, and it is 100% occluded, filled by | | [id number] collaterals. Third obtuse marginal is absent. | | 6. There are 3 left posterolateral arteries. All are small, no significant | | stenosis. | | 7. Left PDA is normal size, no significant stenosis. | | 8. RCA is a nondominant artery with no significant stenosis. | | 9. Left dominant circulation. | | | | LEFT VENTRICULOGRAM | | Left ventriculogram showed an EF of 40% with severe hypokinesia in the | | distal inferior wall and no significant mitral valve regurgitation. | | | | COMPLICATIONS | | Perforation at the small side branch at the chronic total occlusion. | | | | ESTIMATED BLOOD LOSS | | Less than 50 mL. | | | | CONCLUSIONS | | 1. New-onset stable angina. | | 2. Single-vessel disease including chronic total occlusion for a large | | bifurcating second obtuse marginal. | | 3. Mild systolic dysfunction with ejection fraction of 40%. | | 4. Unsuccessful attempt for angioplasty for the second obtuse marginal. | | | | RECOMMENDATIONS | | 1. Limited 2D echocardiogram in the morning to rule out any pericardial | | effusion. | | 2. Aggressive medical management and risk factor modifications. | | 3. If there is recurrent angina in spite of medical management, consider | | advanced PCI in a [facility] center. | | 4. If advanced [facility] angioplasty is unsuccessful, consider single-vessel | | bypass surgery. | | | | Read by DM MARRERO MD 06/17/2014 12:11 A | | | | | + + documented in this encounter Visit Diagnoses Not on filedocumented in this encounter"
--- OUTSIDE RECORDS SUMMARY | ~2019-12-09 | XMS | Encounter Summary ---
Demographics + + + | Address | [address] | | | [place] [address] | + + + | Home Phone | | + + + | Preferred Language | Unknown | + + + | Marital Status | | + + + | Episcopalian Affiliation | 1041 | + + + | Race | Unknown | + + + | Ethnic Group | Unknown | + + + Author + + + | Author | [facility] | | | and [place] | + + + | Organization | [facility] | | | and [place] | + + + | Address | Unknown | + + + | Phone | Unavailable | + + + Support + + + + + | Name | Relationship | Address | Phone | + + + + + | Lesia Castaneda | ECON | [address] | | | | | [place] [address] | | + + + + + | Rosina Castaneda | ECON | Unknown | | + + + + + | Sandy Zamora | ECON | [address] | | | | | [place] | | | | | [address] | | + + + + + Care Team Providers + +------+ + | Care White Metal Corrosion Proofer Name | Role | Phone | + +------+ + | Sergio Thompson MD | PCP | | + +------+ + Encounter Details +--------+ + + + + | Date | Type | Department | Care Team | Description | +--------+ + + + + | 10/16/ | Hospital | [facility] | Demond Castellon | CA prostate, adenoca | | 2017 | Encounter | [facility] | MD [place] | (HCC) (Primary Dx); | | | | [facility]Y [facility] [address] | Anemia, unspecified | | | | [facility] | [place] [address] | type; | | | | [place] [address] | [phone] | Cerebrovascular | | | | [phone] | | accident (CVA), | | | [...] + + + | Blood Pressure | 131/63 | 10/16/2016 12:59 PM | | | | | PDT | | + + + + + | Pulse | 71 | 10/16/2016 12:59 PM | | | | | PDT | | + + + + + | Temperature | 35.8 C (96.5 F) | 10/16/2016 12:59 PM | | | | | PDT | | + + + + + | Respiratory Rate | 16 | 10/16/2016 12:59 PM | | | | | PDT | | + + + + + | Oxygen Saturation | 98% | 10/16/2016 12:59 PM | | | | | PDT | | + + + + + | Inhaled Oxygen | - | - | | | Concentration | | | | + + + + + | Weight | 74.8 kg (164 lb 14.5 | 10/16/2016 12:59 PM | | | | oz) | PDT | | + + + + + | Height | - | - | | + + + + + | Body Mass Index | 21.76 | 11/19/2015 8:00 PM | | | [...] encounter Progress Notes Demond Castellon MD - 10/16/2016 1:32 PM PDTFormatting of this note might be diff erent from the original. Hem-Onc Progress Note [facility] Pt. Name/Age/: Demond Castaneda 85 y.o. 1930 Med. Record Number: [id number] Date of admission: 10/16/2016 Assessment and plan: 1. 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 Stroke, November, 3. Angina Pectoris, Dec, 2013, S/p PCI, [facility], [place] 4. Fall hip fracture, November,, S/p right THR, Dr Canada 5. S/p right TNR, 2017 Counseling session today first taking note of recent elective knee replacement surgery foll owed by prolonged convalescence and recovery. We also acknowledged the limiting effects of diminishing quadriceps strength both in terms of patient's ambulatory ability and in particu lar with regard to ability to get up onto hoarse. 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 Patient realizing he may not be able to pa rticipate in that capacity this year. Review of laboratory testing first noting improvement in blood counts with hemoglobin today in excess of 10 g percent consistent with stable parameters of hematopoiesis. Of more conc johana however is rising PSA today at just under 15 ng per mL. We discussed the change in traj ectory of PSA, the so-called PSA velocity with a doubling now at about every 6 month interva l. We discussed that for many patients elevation of PSA into the low to mid double digits c onsistent with development of metastatic disease. We proposed a follow-up later this summer to recheck level and then to consider more aggressive restaging. We also discussed the types of treatments available for metastatic prostate cancer includin g the use of androgen suppressive therapy. Such treatment however likely to aggravate patie nt's proximal muscle weakness that would only further compound his current difficulties with ambulation. Accordingly have proposed postponing such therapy at least for the time being and have urged patient to continue efforts at physical therapy in the interim. Subjective: The patient chart and medications were reviewed in detail and the patient was seen and exam ined. Demond Castaneda is a 85 y.o. male returns today for follow-up monitoring the gradual pro gression of recurrent prostate cancer. Interim history of right total knee replacement earlier this spring by Dr. Mercado as a conc omitant surgery to earlier right hip replacement. Patient had fallen in year 2016 fracturin g his right hip for which she underwent replacement therapy last summer. Been actually doin g very well right through winter up until the time of knee replacement. Now instead patient has had considerably more difficulties with rehabilitation describing the stiffness that de velops when he sits for any length of time. He's been trying to be able to get up on his ho rse but does not have the leg strength to be able to swing his leg over the hoarse to be abl e to mount his steed. He has been working on physical therapy but has had a plateau. PSH: Reviewed, no changes to admission H&P. Review of Systems: Constitutional: Denies fatigue. Denies high fevers, shaking chills, anorexia, nausea, vomit ing, or night sweats. Appetite without changes. Weight loss of 4-5 lbs. Ear, Nose, Mouth, Throat: Denies odynophagia, dysphagia, or tinnitus. Cardiovascular: Denies shortness of breath, dyspnea on exertion, chest pain, palpitations o r orthopnea. Respiratory: Denies cough, hemoptysis, or sputum production. Gastrointestinal: Denies abdominal pain, constipation, diarrhea, melena, or bright red bloo d per rectum. Genitourinary: Denies hematuria or dysuria. Musculoskeletal: Denies joint pain or tenderness. Intermittent pain in the right hip and ri ght knee. Neurologic: Denies headache, visual changes, or numbness/tingling [...] Daily. atorvaSTATin (LIPITOR) 80 MG tablet Take 80 mg by mouth nightly. cholecalciferol 5000 UNITS CAPS Take 1 capsule by mouth Daily. 30 capsule 2 clopidogrel (PLAVIX) 75 mg tablet Take 75 mg by mouth Daily. cyanocobalamin (VITAMIN B-12) 500 mcg tablet Take 500 mcg by mouth Daily. ergocalciferol (VITAMIN D-2) 50,000 units capsule Take 50,000 Units by mouth Once a wee k. MULTIPLE VITAMIN PO Take by mouth Daily. oxyCODONE (ROXICODONE) 5 mg tablet Take 1 tablet by mouth every 3 hours as needed for P ain. (Patient not taking: Reported on 10/16/2016) 20 tablet 0 No current facility-administered medications on file prior to encounter. Objectives: Temp: 35.8 C (96.5 F) BP: 131/63 Pulse: 71 Resp: 16 SpO2: 98 % on Min/Max Temp past 24 hours:Temp Av.8 C (96.5 F) Min: 35.8 C (96.5 F) Max: 3 5.8 C (96.5 F) No intake or output data in the 24 hours ending 10/16/16 1332 Wt. Admission: Weight: 74.8 kg (164 lb 14.5 oz) Wt. Current: Weight: 74.8 kg (164 lb 14 .5 oz) Physical Exam: Exam: General: The patient is alert and oriented. No acute distress. HEENT: PERRL, Oral mucosa intact. Neck is supple. Genitourinary: Deferred. Extremities: Nontender, no erythema, no edema. Skin: No rashes, bruising, or petechiae. Lymph: No palpable nodes in the neck, supraclavicular fossa, axilla or groin. Neurological: Cranial nerves are intact. Normal sensory and motor function, reduced stren gth in quadriceps. Muscular/Skeletal: Notable difficulties with standing into an indirect posture. An walking with a walker Psychiatric: Normal mood and affect. Diagnostic studies: Available data and images were reviewed personally. See reports. Significant results and findings are addressed here or in the Assessment and Plan. Recent Labs Lab 10/16/16 1108 WBC 5.3 HGB 10.6* HCT 31.1* PLT 231 Recent Labs Lab 10/16/16 1108 NA 143 K 3.7 CL 107 CO2 27 BUN 26* CREA 1.10 GLU 105 CALCIUM 9.3 BILITOT 2.3* AST 17 ALT 12 ALKPHOS 95 ALBUMIN 4.3 PSA 14.8 ng per mL Electronically signed by: Demond Castellon, 10/16/2016 13:32 [facility] TIME SPENT 20 MIN. > 50% AT BEDSIDE, WITH FAMILY/PATIENT IN CARE AND CIVIL DESIGN TECHNICIAN ON UNIT AND CO ORDINATION OF CARE Portions of this chart may have been created with [employer] voice recognition software. Occasi onal wrong-word or sound-alike substitutions may have occurred due to the inherent epperson itations of voice recognition software. Please read the chart carefully and recognize, using context, where these substitutions have occurred. Estelita Paez CMA - 10/16/2016 1:02 PM PDTREVIEW O F SYSTEMS Constitutional: Denies fatigue. Denies high fevers, shaking chills, anorexia, nausea, vomit ing, or night sweats. Appetite without changes. Weight loss of 4-5 lbs. Ear, Nose, Mouth, Throat: Denies odynophagia, dysphagia, or tinnitus. Cardiovascular: Denies shortness of breath, dyspnea on exertion, chest pain, palpitations o r orthopnea. Respiratory: Denies cough, hemoptysis, or sputum production. Gastrointestinal: Denies abdominal pain, constipation, diarrhea, melena, or bright red bloo d per rectum. Genitourinary: Denies hematuria or dysuria. Musculoskeletal: Denies joint pain or tenderness. Intermittent pain in the right hip and ri ght knee. Neurologic: Denies headache, visual changes, or numbness/tingling of the extremities. Endocrine: Denies peripheral edema or heat/cold intolerance. Hematologic: Denies spontaneous bruising or bleeding. Integumentary: Denies rash, wounds or other skin concerns. Pain: Denies pain. Note: Pt is here for 8 month follow up and labs My chart: Active documented in this encounter Miscellaneous Notes Addendum Note - Estelita Loyd CMA - 10/16/2016 2:46 PM PDTEncounter addended by: Estelita Loyd CMA on: 10/16/2016 14:46
Actions taken: Charge Capture section acceptedEle ctronically signed by Estelita Loyd CMA at 10/16/2016 2:46 PM PDTdocumented in this enco unter Plan of Treatment +--------+---------+ + + + | Date | Type | Specialty | Care Team | Description | +--------+---------+ + + + | 02/01/ | Office | Cardiology | Jazlyn Almeida, | | | 2019 | Visit | | MD Vikram RICARDO | | | | | | [place] | | | | | | [id number] | | | | | | | | +--------+---------+ + + + documented as of this encounter Procedures + +--------+ + + + | Procedure Name | Priori | Date/Time | Associated Diagnosis | Comments | | | ty | | | | + +--------+ + + + | PSA, DIAGNOSTIC | STAT | 10/16/2016 | CA prostate, | Results for this | | | | 11:18 AM | adenoca (HCC) | procedure are in the | | | | PDT | | results section. | + +--------+ + + + | CBC WITH | STAT | 10/16/2016 | CA prostate, | Results for this | | DIFFERENTIAL | | 11:08 AM | adenoca (HCC) | procedure are in the | | | | PDT | Anemia, unspecified | results section. | | | | | type | | + +--------+ + + + | LACTATE | STAT | 10/16/2016 | CA prostate, | Results for this | | DEHYDROGENASE | | 11:08 AM | adenoca (HCC) | procedure are in the | | | | PDT | Anemia, unspecified | results section. | | | | | type | | + +--------+ + + + | COMPREHENSIVE | STAT | 10/16/2016 | CA prostate, | Results for this | | METABOLIC PANEL | | 11:08 AM | adenoca (HCC) | procedure are in the | | | | PDT | Anemia, unspecified | results section. | | | | | type | | + +--------+ + + + documented in this encounter Results PSA, Diagnostic (10/16/2016 11:18 AM PDT) + + + + + + | Component | Value | Ref Range | Performed | Pathologist | | | | | At | Signature | + + + + + + | PSA | 14.78 (H) | <=4.00 ng/mL | [facility] | [...] [address] | [place] | [phone] | | [facility] | | [address] | | | - LABORATORY | | | | + + + + + CBC with Differential (10/16/2016 11:08 AM PDT) + + + + + [...] + + + | Red Blood | 3.26 (L) | 4.30 - 5.70 | [facility] | | | Cells | | M/uL | [facility] | | | | | | MEDICAL | | | | | | CENTER - | | | | | | LABORATORY | | + + + + + + | Hemoglobin | 10.6 (L) | 13.5 - 18.0 | [facility] | | | | | g/dL | [facility] | | | | | | MEDICAL | | | | | | CENTER - | | | | | | LABORATORY | | + + + + + + | Hematocrit | 31.1 (L) | 40.0 - 51.0 % | [facility] | | | | | | [facility] | | | | | | MEDICAL | | | | | | CENTER - | | | | | | LABORATORY | | + + + + + + | MCV | 95.5 | 83.0 - 101.0 fL | [facility] | | | | | | [facility] | | | | | | MEDICAL | | | | | | CENTER - | | | | | | LABORATORY | | + + + + + + | MCH | 32.6 | 28.0 - 35.0 pg | [facility] [...] + + + + | Platelet | 231 | 140 - 440 K/uL | [facility] [...] + + + + | % | 71.2 | 45.0 - 82.0 % | [facility] | | | Neutrophils | | | [facility] | | | | | | MEDICAL | | | | | | CENTER - | | | | | | LABORATORY | | + + + + + + | % | 18.5 (L) | 20.0 - 45.0 % | [facility] | | | Lymphocytes | | | [facility] | | | | | | MEDICAL | | | | | | CENTER - | | | | | | LABORATORY | | + + + + + + | % Monocytes | 8.1 | 4.0 - 12.0 % | [facility] | | | | | | [facility] | | | | | | MEDICAL | | | | | | CENTER - | | | | | | LABORATORY | | + + + + + + | % | 1.3 | 0.0 - 5.0 % | [facility] [...] + + + + | Absolute | 3.70 | 1.80 - 8.50 | [facility] | [...] [address] | [place] | [phone] | | [facility] | | [address] | | | - LABORATORY | | | | + + + + + Comprehensive Metabolic Panel (10/16/2016 11:08 AM PDT) + + + + + + | Component | Value | Ref Range | Performed | Pathologist | | | | | At | Signature | + + + + + + | Na | 143 | 136 - 149 | [facility] | [...] + + + + | Glucose | 105 | 70 - 109 mg/dL | [facility] | | | | | | [facility] | | | | | | MEDICAL | | | | | | CENTER - | | | | | | LABORATORY | | + + + + + + | BUN | 26 (H) | 7 - 18 mg/dL | [facility] | | | | | | [facility] | | | | | | MEDICAL | | | | | | CENTER - | | | | | | LABORATORY | | + + + + + + | Creatinine | 1.10 | 0.60 - 1.30 | [facility] | | | | | mg/dL | [facility] | | | | | | MEDICAL | | | | | | CENTER - | | | | | | LABORATORY | | + + + + + + | eGFR if not | >60Comment: GLOMERULAR | >=60 | [facility] | | | | FILTRATION | mL/min/1.73m2 | [facility] | | | [facility] | RATE,ESTIMATED | | MEDICAL | | | | mL/min/1.74g3Mkce than | | CENTER - | | [...] + + + + | Bilirubin | 2.3 (H)Comment: This is | 0.1 - 1.5 [...] | | appended report. These | | [facility] | | | | results have been | | MEDICAL | | | | appended to a previously | | CENTER - | | | | preliminary verified | | LABORATORY | | | | report. | | | | + + + + + + | Alkaline | 95Comment: This is an | 40 - 110 [...] + + + + | Globulin | 3.0 | 2.1 - 3.8 g/dL | [facility] [...] + + + + | BUN/Creatin | 23.6 | | [facility] | | | ine [...] [address] | [place] | [phone] | | [facility] | | [address] | | | - LABORATORY | | | | + + + + + Lactate Dehydrogenase (10/16/2016 11:08 AM PDT) + +-------+ + + + | Component | Value | Ref Range | Performed | Pathologist | | | | | At | Signature | + +-------+ + + + | LDH TOTAL | 180 | 91 - 180 U/L | [facility] | | | | [...] [address] | [place] | [phone] | | [facility] | | [address] | | | - LABORATORY | | | | + + + + + documented in this encounter Visit Diagnoses + + | Diagnosis | + + | CA prostate, adenoca (HCC) - Primary Malignant neoplasm of prostate | + + | Anemia, unspecified type | + + | Cerebrovascular accident (CVA), unspecified mechanism (HCC) | + + documented in this encounter"
[2019-12-09] MEDS ORDERED: BAYER CHEWABLE81 MG PO (11:11)
== END 2019-12-09 12:35 | disposition home or self-care (01) ==
LOC: ED 10:39
DX: D64.9 Anemia, unspecified (principal); Z86.73 Personal history of transient ischemic attack (TIA), and cerebral infarction without residual deficits; Z87.891 Personal history of nicotine dependence; Z88.2 Allergy status to sulfonamides; Z79.899 Other long term (current) drug therapy
CPT/HCPCS: 70450; 80053; 85025; 99284-25

== ENCOUNTER 2020-05-31 11:33 | Emergency (ER) | payer MEDICARE, OTHER ==
[~2020-05-31] VITALS: Ht 185.4 cm; Wt 76.7 kg
[~2020-05-31 11:33] MED LIST changes: +BAYER CHEWABLE81 MG PO; +LIPITOR20 MG PO; -LIPITOR80 MG PO
[2020-05-31] MEDS ORDERED: DOXYCYCLINE HY100 MG PO (14:04)
--- NOTE | 2020-06-01 17:34 | EKG ---
[facility] [address] [facility] [place] [address] Signed Normal sinus rhythm Left ventricular hypertrophy with QRS widening and repolarization abnormality Cannot rule out Anteroseptal infarct , age undetermined Abnormal ECG No previous ECGs available Confirmed by IVONE WOO MD ([id number]) on 06/01/2020 5:33:53 PM Electronically Signed By: IVONE WOO MD 06/01/20 1734 PATIENT NAME: DENA ROSE Electrocardiogram DATE OF : 32 PHYSICIAN: IVONE WOO MD REPORT #: [id number] REPORT IS CONFIDENTIAL AND NOT TO BE RELEASED WITHOUT AUTHORIZATION
== END 2020-05-31 14:29 | disposition home or self-care (01) ==
LOC: ED 11:33
DX: J18.9 Pneumonia, unspecified organism (principal); Z20.822 Contact with and (suspected) exposure to COVID-19; D64.9 Anemia, unspecified; Z86.73 Personal history of transient ischemic attack (TIA), and cerebral infarction without residual deficits; Z87.891 Personal history of nicotine dependence; Z88.2 Allergy status to sulfonamides; Z79.899 Other long term (current) drug therapy; Z79.82 Long term (current) use of aspirin
CPT/HCPCS: 71045; 80053; 81001; 83605; 83735; 83880; 84484; 85025; 93005; 93010; 99285-25; C9803; U0003

== ENCOUNTER 2020-06-15 07:09 | Emergency (ER) | payer MEDICARE, OTHER ==
[~2020-06-15] VITALS: Ht 185.4 cm; Wt 78.9 kg
[~2020-06-15 07:09] MED LIST changes: +DOXYCYCLINE HY100 MG PO
--- OUTSIDE RECORDS SUMMARY | 2020-06-15 07:12 | XMS ---
PreManage Notification: DENA ROSE Security Veterinary Medicine Scientist Events No recent Security Events currently on file CRITERIA MET - [facility] - 2 Visits in 30 Days CARE PROVIDERS KARTIK DUKES [facility] 05/31/2020-Current PHONE: [phone] Angie has no Care Guidelines for this patient. Keira VISIT COUNT (12 MO.) 3 [facility] TOTAL 3 NOTE: Visits indicate total known visits. ED/UCC VISIT TRACKING (12 MO.) 06/15/2020 07:09 [facility] [place] TYPE: Emergency COMPLAINT: - BLOOD IN URINE 05/31/2020 11:35 [facility] [place] TYPE: Emergency COMPLAINT: - SOB DIAGNOSES: - Shortness of breath - Personal history of nicotine dependence - Personal history of transient ischemic attack (TIA), and cerebral infarction without residual deficits - prison (current) use of aspirin - Allergy status to sulfonamides - Pneumonia, unspecified organism - Other intermodal dispatcher (current) drug therapy - Anemia, unspecified 12/09/2019 10:40 [facility] [place] TYPE: Emergency COMPLAINT: - WEAKNESS, HEADACHE DIAGNOSES: - Personal history of nicotine dependence - Other chcf (current) drug therapy - Anemia, unspecified - Headache - Personal history of transient ischemic attack (TIA), and cerebral infarction without residual deficits - Allergy status to sulfonamides INPATIENT VISIT TRACKING (12 MO.) 07/13/2019 11:45 [facility]io [facility]ER TYPE: Surgical Services DIAGNOSES: - Presence of right artificial hip joint - Malignant neoplasm of prostate - Postprocedural membranous urethral stricture, male - Mechanical loosening of internal right hip prosthetic joint, initial encounter - Presence of urogenital implants - Retention of urine, unspecified [email or web address]
[2020-06-15] MEDS ORDERED: METOPROLOL SUCC25 MG PO (07:30)
[2020-06-15] MEDS ORDERED: CIPROFLOXACIN500 MG PO (07:30)
[2020-06-15] MEDS ORDERED: CLOPIDOGREL75 MG PO (07:30)
== END 2020-06-15 11:58 | disposition home or self-care (01) ==
LOC: ED 07:09
PROC: 0T9B70Z Drainage of Bladder with Drainage Device, Via Natural or Artificial Opening (ICD-10-PCS; principal; 2020-06-15)
DX: N13.9 Obstructive and reflux uropathy, unspecified (principal); D64.9 Anemia, unspecified; Z88.2 Allergy status to sulfonamides; Z79.899 Other long term (current) drug therapy; Z79.02 Long term (current) use of antithrombotics/antiplatelets; Z79.82 Long term (current) use of aspirin
CPT/HCPCS: 51702; 81001; 99283-25

== ENCOUNTER 2020-07-03 09:37 | Day surgery (SDC) | payer MEDICARE, OTHER ==
[~2020-07-03] VITALS: Ht 185.4 cm; Wt 78.9 kg
[~2020-07-03 09:37] MED LIST changes: +CIPROFLOXACIN500 MG PO; +CLOPIDOGREL75 MG PO; +METOPROLOL SUCC25 MG PO
--- OUTSIDE RECORDS SUMMARY | 2020-07-03 09:40 | XMS ---
PreManage Notification: DENA ROSE Security Draftsperson Events No recent Security Events currently on file CRITERIA MET - [facility] - 2 Visits in 30 Days CARE PROVIDERS KARTIK DUKES [facility] 05/31/2020-Current PHONE: [phone] Angie has no Care Guidelines for this patient. Care History Medical/Surgical 06/16/2020 [facility] - PATIENT UROLOGIST- DR ARCE- LAST SEEN ON 06/15/20. - NEXT APT CATH CHANGE- 07/06/20. - TURBNC - 07/24/20 [facility]: Visits indicate total known visits. ED/UCC VISIT TRACKING (12 MO.) 07/03/2020 09:37 [facility] [place] TYPE: Emergency COMPLAINT: - CATHETER PROBLEM 06/15/2020 07:09 [facility] [place] TYPE: Emergency COMPLAINT: - BLOOD IN URINE DIAGNOSES: - dinkey brakeman (current) use of antithrombotics/antiplatelets - Other chief crna (current) drug therapy - Obstructive and reflux uropathy, unspecified - Allergy status to sulfonamides - senior care (current) use of aspirin - Anemia, unspecified - Hematuria, unspecified 05/31/2020 11:35 [facility] [place] TYPE: Emergency COMPLAINT: - SOB DIAGNOSES: - Shortness of breath - Personal history of nicotine dependence - Personal history of transient ischemic attack (TIA), and cerebral infarction without residual deficits - dinkey brakeman (current) use of aspirin - Allergy status to sulfonamides - Pneumonia, unspecified organism - Other custodial (current) drug therapy - Anemia, unspecified 12/09/2019 10:40 [facility] TYPE: Emergency COMPLAINT: - WEAKNESS, HEADACHE DIAGNOSES: - Personal history of nicotine dependence - Other chief crna (current) drug therapy - Anemia, unspecified - Headache - Personal history of transient ischemic attack (TIA), and cerebral infarction without residual deficits - Allergy status to sulfonamides INPATIENT VISIT TRACKING (12 MO.) 07/13/2019 11:[address] Marquita SHER TYPE: Surgical Services DIAGNOSES: - Presence of right artificial hip joint - Malignant neoplasm of prostate - Postprocedural membranous urethral stricture, male - Mechanical loosening of internal right hip prosthetic joint, initial encounter - Presence of urogenital implants - Retention of urine, unspecified [id number]
[2020-07-03] MEDS ORDERED: MYRBETRIQ25 MG PO (10:09)
[2020-07-03] MEDS ORDERED: PYRIDIUM200 MG PO (10:10)
--- NOTE | 2020-07-03 16:20 | NUR ---
PATIENT TO DAYSURGERY FROM PACU. BEDSIDE REPORT FROM LISET DESAI. URINE DRAINING CLEAR IN SHERMAN BAG. PATIENT AWAKE AND ALERT. NO REPORTS OF PAIN OR NAUSEA. DRINKING AND EATING WELL. NO OTHER NEEDS AT THIS TIME.
--- NOTE | 2020-07-03 16:36 | NUR ---
07/03/20 1636 Taylor Rodriguez 1538 PT ARRIVED IN PACU NON RESPONSIVE TO NOXIOUS STIMULI WITH OPA IN PLACE. SHERMAN WITH CBI RUNNING. SLOWED DOWN CBI ON ARRIVAL. 1546 PT REACTIVE. OPA REMOVED. 1600 DR AT BEDSIDE TALKING WITH PT. NO C/O'S. 1614 CLAMPED CBI. EMPTIED SHERMAN OF 500ML OF URINE/CBI PALE YELLOW COLORED. 1620 TO DS. FAMILY AT BEDSIDE. REPORT GIVEN TO RN.
--- NOTE | 2020-07-03 17:45 | NUR ---
PROVIDED PATIENT AND AND DAUGHTER DEMONSTRATION OF HOW TO EMPTY SHERMAN BAG PATIENT DAUGHTER RETURNED DEMONSTRATION. PLACED SHERMAN SECUREMENT DEVICE ON PATIENT LEG PER HIS REQUEST. PROVIDED DISCHARGE EDUCAITON, VERIFIED WITH DR. ARCE TO STOP PLAVIX AND ASPIRIN FOR 1 WEEK, WROTE OUT ON DISCHARGE PLAN. PATIENT ABLE TO DRESS, PROVIDED WHEELCHAIR RIDE TO FRONT, PROVIDED WITH WHEELCHAIR RIDE. BOTH TRANSFERED INTO VEHICLE WELL.
--- NOTE | 2020-07-06 18:33 | OR ---
[facility] [address] [place], [place] [address] Signed DATE OF OPERATION: 07/03/2020 SURGEON: Cassandra Arce MD PREOPERATIVE DIAGNOSES: 1. Sudden onset gross hematuria. 2. Bladder neck contracture, secondary to radiation treatment for prostate cancer. POSTOPERATIVE DIAGNOSES: 1. Sudden onset gross hematuria. 2. Bladder neck contracture, secondary to radiation treatment for prostate cancer. NAMES OF PROCEDURES: 1. Diagnostic cystoscopy with blood clot evacuation from the bladder. 2. Transurethral incision of bladder neck. 3. Transurethral resection of bladder neck contracture. ANESTHESIA: General. ESTIMATED BLOOD LOSS: Minimal. COMPLICATIONS: None. SPECIMENS: Fragments of necrotic scar tissue from bladder neck were sent to Pathology for evaluation. DRAINS: A 24-Bruneian 3-way Daniels catheter, connected to continuous bladder irrigation. INDICATIONS FOR PROCEDURE: Mr. Rose is a very pleasant 89-year-old gentleman, who I recently had the pleasure of meeting after he experienced a bout of urinary retention in the emergency room last month. The nurses were reportedly unable to successfully pass a Daniels catheter, so he was sent here to my clinic, where he underwent urethroscopy, which revealed a pgnaynih-no-glywtu bladder neck contracture. At that time, the largest catheter I was able to successfully pass was a 14-Bruneian coude catheter. I notified his and Electronically Signed By: CASSANDRA ARCE MD 07/06/20 1833 PATIENT NAME: DENA ROSE OPERATIVE REPORT DATE OF : 32 REPORT #: [id number] PHYSICIAN: CASSANDRA ARCE MD PCP: KARTIK DUKES MD REPORT IS CONFIDENTIAL AND NOT TO BE RELEASED WITHOUT AUTHORIZATION [facility] [address] [place], [place] [address] Signed daughter at that time that the patient will require definitive treatment of his bladder neck contracture in the near future. However, at that time, he was also battling lobar pneumonia, which at this point he has since resolved. The patient presented to the emergency department today with a 24-hour history of sudden onset gross hematuria that apparently came out of nowhere. The patient denied any fevers, chills, or strange appearance to his urine prior to the bout of gross hematuria. He takes aspirin and Plavix for history of coronary stenting due to coronary artery disease. He denied any recent trauma or pulling of his catheter. Along with gross hematuria, he was also noting leakage of urine from around the catheter with associated bladder spasms. Due to the severity of his gross hematuria, the decision was made to take the patient on a semi-urgent basis to the operating room to undergo cystoscopy with blood clot evacuation and resection of his known bladder neck contracture. OPERATIVE FINDINGS: 1. Urethroscopy reveals dense scar tissue at the level of the bladder neck and membranous urethra. The scar tissue was very rigid and initially does not allow passage of a 22.5-Bruneian sheath. A cold knife was then used to incise the bladder. The scar tissue at the bladder neck at the 9 o'clock position. This opened up the bladder neck quite nicely to allow future passage of the 26-Bruneian sheath. 2. Diagnostic cystoscopy revealed no evidence of any suspicious masses, lesions, or stones. Bilateral ureteral orifices are in their normal anatomic location effluxing clear urine. There was a significant blood clot present within the bladder and this was irrigated successfully without difficulty. 3. Once the resectoscope was inserted using a 26-Bruneian sheath, a bipolar loop was then used to resect the scar tissue present at the level of the bladder neck. This was very necrotic and unhealthy-appearing tissue, most likely secondary to damage due to radiation performed approximately 20 years ago. The tissue denuded easily and overall appeared very necrotic in nature. The bladder neck was resected to the point where the 26-Bruneian sheath easily passed into the bladder. 4. At the end of the procedure, a 24-Bruneian 3-way Daniels catheter was inserted into the patient's bladder and connected to continuous bladder irrigation. DESCRIPTION OF PROCEDURE: After informed consent was obtained, the patient was taken back to the operating room. He was transferred from the [facility] to the operating room table, where anesthesia was then induced. He was then placed in the dorsal lithotomy position and his genitalia prepped and draped in a standard sterile fashion. Using a 30-degree lens on a 22-1/2-Bruneian sheath, diagnostic urethroscopy was performed. Please see above findings. I was able to advance a Arechiga knife through the 22-1/2-Bruneian sheath and was able to incise the right lateral wall of the bladder neck using the cold knife. The incision was made at the 9 o'clock position. This then easily allowed passage of the 22-1/2-Bruneian sheath and at that point in time, I was able to perform cystoscopy, which Electronically Signed By: CASSANDRA ARCE MD 07/06/20 1833 PATIENT NAME: DENA ROSE OPERATIVE REPORT DATE OF : 31 REPORT #: [id number] PHYSICIAN: CASSANDRA ARCE MD PCP: KARTIK DUKES MD REPORT IS CONFIDENTIAL AND NOT TO BE RELEASED WITHOUT AUTHORIZATION [facility] [address] [place] [address] [place], [place] [address] Signed revealed a significant amount of relatively well organized blood clots within the patient's bladder. The patient's bladder was then vigorously irrigated using a Lou syringe to the point where all the blood clots had been flushed from the patient's bladder. I then repeated diagnostic cystoscopy. Please see above findings. I then took out the 22-1/2-Bruneian sheath and then inserted a 26-Bruneian sheath using a visual obturator. The resectoscope was inserted through the sheath and I performed a transurethral resection of the bladder neck contracture. Please see above findings. I resected all edges of the bladder neck, except for the anterior portion of the bladder neck due to increased risk of bleeding from this area. The tissue resected quite easily; however, it was very denuded and necrotic in nature. Hemostasis was achieved and maintained via bipolar electrocautery throughout the entire case. Once I was satisfied that the 26-Bruneian sheath easily passed through the bladder neck, I chose not to go any further due to risk of significant bleeding since the patient is still actively taking aspirin and Plavix. The patient's bladder was irrigated yet again of the bladder neck tissue fragments. These fragments were placed in a cup and to be sent to pathology for evaluation. I then passed a 24-Bruneian 3-way Daniels catheter into the patient's bladder and connected to continuous bladder irrigation. The procedure was then terminated. The patient tolerated the procedure well without any complication. He will now be transferred to the postanesthesia care unit in stable condition. DISPOSITION: I discussed the results of today's procedure with the patient's and daughter and answered all of their questions. I told them that he must remain off his aspirin and Plavix for at least a week to prevent any future bleeding related to his procedure today. He will be sent home on cefdinir 300 mg p.o. b.i.d. for a total of nine days, along with oxycodone 2.5 mg p.o. every 6 hours p.r.n. pain. I have asked the patient's family to not allow the patient to use a leg bag until I have given the okay, as I believe this increases his risk for urinary tract infection, which also provides gross hematuria. They verbalized understanding this concept today. He will be scheduled to return to clinic in two weeks for his first postoperative Daniels catheter exchange. I will discuss his pathology results with him at that time. He will require an indwelling 24-Bruneian Daniels catheter for at least the next two months to allow for proper healing of his bladder neck around the catheter and to avoid the development of a repeat bladder neck contracture in the future. Cassandra Arce MD AR/MODL Electronically Signed By: CASSANDRA ARCE MD 07/06/20 1833 PATIENT NAME: DENA ROSE OPERATIVE REPORT DATE OF : 31 REPORT #: [id number] PHYSICIAN: CASSANDRA ARCE MD PCP: KARTIK DUKES MD REPORT IS CONFIDENTIAL AND NOT TO BE RELEASED WITHOUT AUTHORIZATION [facility] [address] [facility] [place] [address] Signed /[id number] Copies: ~ Electronically Signed By: CASSANDRA ARCE MD 07/06/20 1833 PATIENT NAME: DENA ROSE OPERATIVE REPORT DATE OF : 31 REPORT #: [id number] PHYSICIAN: CASSANDRA ARCE MD PCP: KARTIK DUKES MD REPORT IS CONFIDENTIAL AND NOT TO BE RELEASED WITHOUT AUTHORIZATION
--- NOTE | 2020-07-10 14:09 | PATH ---
[facility] [address] [place], [place] [address] Signed SPECIMEN(S): A BLADDER NECK CHIPS SPECIMEN SOURCE: A. BLADDER NECK CHIPS CLINICAL HISTORY: Gross hematuria; bladder neck contracture. FINAL PATHOLOGIC DIAGNOSIS: Bladder neck contracture tissue, transurethral resection: - Prostatic Adenocarcinoma, extensive. - See Comment. COMMENT: Sections demonstrate several fragments of fibromuscular tissue involved by infiltrative sheets of poorly differentiated adenocarcinoma infiltrating as large sheets of tumor cells with cribriforming. Tumor necrosis is present. A few fragments are lined by non-neoplastic urothelium; the tumor invades the suburothelial connective tissue but does not invade into the urothelium. A panel of immunohistochemical stains (with appropriately staining controls) was performed. The tumor is positive for PSAP and PSA (weak), but negative for CK7, CK20, p63, and GATA3. The combined morphologic and immunophenotypic profile supports the diagnosis of prostatic adenocarcinoma. As part of [facility]' Quality Improvement Program, this case was reviewed by another member of our pathology staff. A diagnostic alert was initiated by Dr. Mccormack (Dr. Schilling to be called) on 07/06/2020. NAL: :cml:C1NR MICROSCOPIC EXAMINATION: Histologic sections of all submitted blocks are examined by light microscopy. These findings, together with the gross examination, support the pathologic diagnosis. GROSS DESCRIPTION: The specimen, labeled "BEATRIS, A," and designated on the requisition "bladder neck contracture tissue," is received in formalin and consists of multiple estrada, rubbery tissue fragments, 4 g, 3.4 x 3.2 x 1.2 cm in aggregate. The specimen is submitted in toto in 2 cassettes (A1-A2). AI (under the direct supervision of a pathologist) PATIENT NAME: DENA ROSE PATHOLOGY DATE OF : 31 REPORT #: [id number] PHYSICIAN: [facility] PCP: KARTIK DUKES MD REPORT IS CONFIDENTIAL AND NOT TO BE RELEASED WITHOUT AUTHORIZATION [facility] [address] [place], [place] [address] Signed The Gross Description was prepared using a voice recognition system. The report was reviewed for accuracy; however, sound-alike word errors, addition and/or deletions may occur. If there is any question about this report, please contact Client Services. ADDITIONAL NOTES: Immunohistochemical and/or in situ hybridization studies were performed on this case with the appropriate positive controls that react as expected. This test was developed and its performance characteristics determined by [facility]. It has not been cleared or approved by the U.S. Food and Drug Administration. The FDA has determined that such clearance or approval is not necessary. This test is used for clinical purposes. It should not be regarded as investigational or for research. [facility] is certified under the Clinical Laboratory Improvement Amendments of 1988 (CLIA) as qualified to perform high complexity clinical laboratory testing. PERFORMING LABORATORY: The technical component was performed by [facility], [address] [place] [id number] (Financial Sales Assistant: Sandra Drew MD; CLIA# [id number]). [facility], [address] [address] (CLIA# [id number]). Diagnostician: Janis Mccormack MD Pathologist Electronically Signed 07/10/2020 Copies: ~ PATIENT NAME: ROSEDENA PATHOLOGY DATE OF : 31 REPORT #: [id number] PHYSICIAN: [facility] PCP: KARTIK DUKES MD REPORT IS CONFIDENTIAL AND NOT TO BE RELEASED WITHOUT AUTHORIZATION
== END 2020-07-03 18:00 | disposition home or self-care (01) ==
LOC: ED 09:37 → DS 13:49
PROVIDERS: ATTEND Urology
PROC: 0TBC8ZZ Excision of Bladder Neck, Via Natural or Artificial Opening Endoscopic (ICD-10-PCS; principal; 2020-07-03 14:00)
DX: R31.0 Gross hematuria (principal); N32.0 Bladder-neck obstruction; T83.031A Leakage of indwelling urethral catheter, initial encounter; R33.9 Retention of urine, unspecified; F17.210 Nicotine dependence, cigarettes, uncomplicated; E66.01 Morbid (severe) obesity due to excess calories; Z68.36 Body mass index [BMI] 36.0-36.9, adult; Z88.2 Allergy status to sulfonamides; Z79.82 Long term (current) use of aspirin
CPT/HCPCS: 00910; 51798; 80048; 85025; 85610; 85730; 88307; 88341; 88342; 99284-25; C9803; J0330; J1100; J2405; J3010; J7121; U0003

== ENCOUNTER 2021-01-17 10:28 | Day surgery (SDC) | payer MEDICARE, OTHER ==
[~2021-01-17] VITALS: Ht 188 cm; Wt 83.3 kg
[~2021-01-17 10:28] MED LIST changes: +MYRBETRIQ25 MG PO; +PYRIDIUM200 MG PO
--- NOTE | 2021-01-17 11:38 | NUR ---
STEADY ON FEET WITH ONE PERSON STAND BY ASSIST FOR COLLECTION OF URINE PER ORDER. PT NOW READY FOR PROCEDURE.
--- NOTE | 2021-01-17 12:37 | NUR ---
01/17/21 1237 Estelita Marin 1218 PT ARRIVED TO PACU ON 4L VIA NC, LEAD FRONT END DEVELOPER AT BEDSIDE AND HELPED PT ROLL FROM PRONE TO SUPINE. HOB INCREASED SLIGHTLY. 1220 PT EASILY FALLS ASLEEP AND PERIOD OF APNEA NOTED. PT ENCOURAGED TO DEEP BREATHE. PT WAKES EASILY. 1235 REPORT TO GISELLE ACUNA. PT CONTINUES TO FALLS ASLEEP EASILY AND PERIODS OF APNEA NOTED. PT WAKES AND IS TALKING TO RN.
--- NOTE | 2021-01-31 12:31 | PATH ---
[facility] [address] [facility] [place], [place] [address] Signed THIS IS AN ADDENDUM REPORT SPECIMEN(S): A BONE MARROW - CORE SPECIMEN(S): B BONE MARROW - ASPIRATION SPECIMEN(S): C FLOW CYTOMETRY CLINICAL HISTORY: Bone marrow biopsy. 89-year-old male with recurrent prostate cancer and progressive anemia. See attached. 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 Peripheral blood - Normocytic anemia. - No circulating blasts are identified. B. Bone marrow biopsy and aspiration: - Hypercellular marrow, 40%, with 1% blasts. - Trilineage hematopoiesis with erythroid hyperplasia with no significant dyspoiesis. - Increased marrow iron stores. No ring sideroblasts identified. - No malignancy identified. - See Diagnostic Comment. DIAGNOSTIC COMMENT: Normocytic anemia and a mildly hypercellular marrow with erythroid hyperplasia are noted. These features, in isolation, are worrisome for a low-grade myelodysplasia (blasts 1%). However, morphologic features diagnostic of myelodysplasia are not noted. Correlation with the pending FISH panel for MDS and chromosome analysis is needed to exclude an evolving low-grade myelodysplasia. Reactive etiologies for marrow erythroid hyperplasia, such as erythroid hemolysis, smoking, drug effect, sleep apnea, or erythropoietin producing tumor, should be clinically excluded. An anemia of chronic disease is favored. No prostatic adenocarcinoma is detected. JLP:C2NR HISTORICAL SUMMARY: 89-year-old male with anemia and a history of prostatic carcinoma initially diagnosed in 1999 with recurrences in 2004 and 2020 (see [id number]; 07/04/2020). A prior bone marrow examination for anemia in 2015 reportedly revealed a normocellular marrow with erythroid hyperplasia PATIENT NAME: DENA ROSE PATHOLOGY DATE OF : 32 REPORT #: [id number] PHYSICIAN: FELIX PATHOLOGY PCP: KARTIK DUKES MD REPORT IS CONFIDENTIAL AND NOT TO BE RELEASED WITHOUT AUTHORIZATION [facility] [address] [place], [place] [address] Signed (see [id number]; 08/16/2015). This bone marrow is to evaluate for potential metastatic carcinoma and to re-evaluate the anemia. PERIPHERAL BLOOD: HEMOGRAM (01/17/2021): WBC 4.1 K/ul, RBC 2.53 M/ul, HGB 8.3 g/dl, HCT 24.4%, MCV 96.3 fl, MCH 32.6 pg, MCHC 33.9 g/dl, RDW 17.4%, PLT 210 K/ul. Absolute neutrophil count: 2,800/ul. AUTOMATED DIFFERENTIAL COUNT: Neutrophils 67.7%, lymphocytes 21.0%, monocytes 7.6%, eosinophils 2.9%, basophils 0.8%. The red blood cells are normocytic and normochromic with mild anisopoikilocytosis. The neutrophils have mild toxic granulation. Lymphocytes are composed of small mature appearing forms. Platelets appear normal in number and morphology with no platelet clumping or RBC microangiopathic effect identified. No blasts are identified. BONE MARROW: ASPIRATE SMEARS/TOUCH IMPRINT: The aspirate smears are adequate for evaluation. Scattered erythroid precursors appear increased but show adequate maturation with essentially normal morphology. The myeloid precursors show full maturation with unremarkable morphology. There is no increase in blasts. Megakaryocytes are identified with a normal morphology. BONE MARROW DIFFERENTIAL COUNT (300 cells): Blasts 1%, promyelocytes 1%, myelocytes 4%, metamyelocytes/bands/segs 40%, erythroid precursors 30%, lymphocytes 6%, monocytes 3%, eosinophils 4%, plasma cells 1%. M:E ratio: 1.2:1 BONE MARROW CORE BIOPSY/ASPIRATE CLOT/CELL BLOCK: The aspirate clot section (clot section is superior for evaluation) and the clot section is adequate for evaluation. The core biopsy is composed mostly of blood with marrow spicules and is sub-optimal for evaluation . based on the clot section, the cellularity is increased for age, estimated at 40%. The erythroid precursors are increased in numbers with essentially unremarkable maturation. The myeloid precursors are unremarkable with no significant dyspoiesis. Blasts are not increased. Megakaryocytes appear normal in number and in morphology. No granulomas or foreign malignant cells are detected. Small, well-circumscribed, lymphoid aggregates are noted in the clot section. A panel of stains are performed to evaluate the lymphoid aggregates (results below). A reactive process is favored for the lymphoid aggregates. PATIENT NAME: DENA ROSE PATHOLOGY DATE OF : 31 REPORT #: [id number] PHYSICIAN: FELIX PATHOLOGY PCP: KARTIK DUKES MD REPORT IS CONFIDENTIAL AND NOT TO BE RELEASED WITHOUT AUTHORIZATION [address] [address] Signed SPECIAL STAINS (with adequate controls): - iron (aspirate smear): Increased marrow iron stores by Prussian Blue stain. No ring sideroblasts are identified. - iron (aspirate clot): Increased marrow iron stores by Prussian Blue stain IMMUNOHISTOCHEMISTRY STAINS (performed on block B1 with adequate controls). - AE1/AE3 (block A1 and B1): Negative in both blocks (done for history of prostate adenocarcinoma 2020). - CD34: Less than 1% - CD71: 35-40% - E-cadherin: 15-20% - PAX 5: 1%, no atypical aggregates - CD3 5% overall with positive marking in the lymphoid aggregate. - CD117: 1% FLOW CYTOMETRY: Bone marrow, flow cytometry: - No diagnostic abnormal populations are identified by flow cytometry. - See Comment. COMMENT: The majority of the gated lymphocytes are T-cells with a normal marking pattern. The B-cells are unremarkable with no light chain restriction or aberrant marking. Blasts are not increased. No aberrant marking is detected in the myeloid or monocyte gate areas. Plasma cells are not increased. Correlation with histologic findings is suggested to exclude disorders that can have normal flow cytometry findings. FLOW CYTOMETRY ANALYSIS: FLOW DIFFERENTIAL (% Total CD45 vs. SSC gating): Myeloid 87%; Lymphoid 4%; Monocyte 1%; Dim CD45/Blast: 0.7%. Cell Count: 2.4 x 10*3/uL. POPULATION ANALYSIS: BLASTS: Analysis of the dim CD45 gate demonstrates 0.7% myeloblasts by CD34/CD117. LYMPHOID CELLS: The lymphocyte gate comprises 4% of total events and includes 84% T-cells with a CD4:CD8 ratio of 1.5:1 and normal gorman T-cell antigen expression. 5% of lymphocytes are polyclonal B-cells with a kappa:lambda ratio of 1.0:1. The remainders are NK-cells. MYELOID CELLS: The myeloid population comprises 87% of the total events. No aberrant immunophenotypic expression is detected. MONOCYTES: The monocyte population comprises 1% of the total events. Monocytes PATIENT NAME: DENA ROSE PATHOLOGY DATE OF : 31 REPORT #: [id number] PHYSICIAN: FELIX PATHOLOGY PCP: KARTIK DUKES MD REPORT IS CONFIDENTIAL AND NOT TO BE RELEASED WITHOUT AUTHORIZATION [facility] [address] [place], [place] [address] Signed are not increased. No aberrant immunophenotypic expression is detected. PLASMA CELLS: 0.1% plasma cells are detected in the screening gate neg-dimCD45/CD38. Plasma cells are CD45 dim and positive for CD19. ANTIBODIES USED: KAPPA, LAMBDA, CD20, CD10, CD19, CD23, CD38, FMC7, CD16, CD56, CD8, CD5, CD2, CD4, CD7, CD3, CD14, CD33, CD13, HLADR, CD34, CD117, CD15, CD45: TOTAL ANTIBODIES USED: 24. DKW FINAL DIAGNOSIS PERFORMED BY: Thiago Cadet MD, Jan 18 2021 1:02PM CYTOGENETICS: Chromosome analysis is pending and the results will be reported in an addendum. FISH ANALYSIS: A FISH panel for MDS is pending and the results will be reported in an addendum. GROSS DESCRIPTION: Two specimens are received in two containers, labeled "BEATRIS." A. The specimen, labeled "BEATRIS, cores," is received in formalin and consists of three cores of brown-estrada soft tissue (0.7, 1.5, and 2.0 cm in length x 0.3 cm in diameter). The specimen is submitted entirely in cassette (A1). Decalcification is not required. B. The specimen, labeled "BEATRIS, clot," is received in formalin and consists of a portion of red-brown clot (2.8 x 1.5 x 0.2 cm in aggregate). The tissue is submitted entirely in cassette (B1). AC (under the direct supervision of a pathologist) The Gross Description was prepared using a voice recognition system. The report was reviewed for accuracy; however, sound-alike word errors, addition and/or deletions may occur. If there is any question about this report, please contact Client Services. ADDITIONAL NOTES: Immunohistochemical and/or in situ hybridization studies were performed on this case with the appropriate positive controls that react as expected. This test was developed and its performance characteristics determined by [facility]. It has not been cleared or approved by the U.S. Food and Drug Administration. The FDA has determined that such clearance or approval is not necessary. This test is used for clinical purposes. It should not be regarded as investigational or for research. [facility] is certified under the PATIENT NAME: DENA ROSE PATHOLOGY DATE OF : 31 REPORT #: [id number] PHYSICIAN: FELIX BOUCHER PCP: KARTIK DUKES MD REPORT IS CONFIDENTIAL AND NOT TO BE RELEASED WITHOUT AUTHORIZATION [facility] [address] [place] [address] Signed Clinical Laboratory Improvement Amendments of 1988 (CLIA) as qualified to perform high complexity clinical laboratory testing. This assay has not been validated for specimens that have been decalcified. In this case, certain antibodies were performed by both immunohistochemistry and flow cytometry analysis because flow cytometry analysis did not fully explain all the light microscopic findings. Immunohistochemistry aided in the analysis. Both methods are deemed medically necessary in this case. This test was developed and its performance characteristics determined by [facility]. It has not been cleared or approved by the US Food and Drug Administration. The FDA does not require this test to go through premarket FDA review. This test is used for clinical purposes. It should not be regarded as investigational or for research. This laboratory is certified under the Clinical Laboratory Improvement Amendments (CLIA) as qualified to perform high complexity clinical laboratory testing. PERFORMING LABORATORY: The technical component was performed by [facility], [id number] [employer] [place] [address] (Administrative Assistant Coordinator: Miguel Gomez D.O.; CLIA#: [id number]). Professional [place] [address] A portion of the technical component was performed by [facility], [address] [place] [address] (Administrative Assistant Coordinator: Sandra Drew MD; CLIA# [id number]). A portion of the technical component was performed by [facility], [address] [employer] [address] [address] (Administrative Assistant Coordinator: Miguel Gomez D.O.; CLIA#: [id number]). Professional [place] [address]. IMAGES: A: [id number] A: [id number] REASON FOR ADDENDUM: To add results of additional testing. Bone marrow aspirate, cytogenetics oncology chromosome analysis: Karyotype: 46,XY[20] PATIENT NAME: DENA ROSE PATHOLOGY DATE OF : 31 REPORT #: [id number] PHYSICIAN: FELIX BOUCHER PCP: KARTIK DUKES MD REPORT IS CONFIDENTIAL AND NOT TO BE RELEASED WITHOUT AUTHORIZATION [facility] [address] [place], [place] [address] Signed Interpretation: NORMAL MALE KARYOTYPE Cytogenetic analysis shows a normal male karyotype in all cells analyzed. Comments: Standard cytogenetic analysis may not detect subtle submicroscopic rearrangements and may not include metaphases from abnormal cell populations with low mitotic rates or present in low levels. Test Detail: Metaphases Counted: 20 Metaphases Analyzed: 20 Metaphases Karyotyped: 2 Culture Type: 24EB, 48EB Banding Technique: GTG Banding Resolution: 400 CPT Codes: 36222, 12365*, 18441 *Professional interpretation service generally billed directly to carriers by [facility]. The Technical Component Processing and Professional Component of this test was completed at [facility] [address] / [address] / [phone] / CLIA #[id number] / Administrative Assistant Coordinator(s): Hong Ta M.D.. The Technical Component Analysis of this test was completed at [facility] [address] / [address] / [phone] / CLIA #[id number] / Administrative Assistant Coordinator(s): Franco Pickett M.D. (Accession / Case No: [id number] / [id number]). The performance characteristics of this test have been determined by the performing laboratory. This test has not been approved by the FDA. The FDA has determined such clearance or approval is not necessary. This laboratory is CLIA certified to perform high complexity clinical testing. Images that may be included within this report are financial representative of the patient but not all testing in its entirety and should not be used to render a result. The CPT codes provided with our test descriptions are based on AMA guidelines and are for informational purposes only. Correct CPT coding is the sole responsibility of the billing green party. Please direct any questions regarding coding to the payer being billed. To add results of additional testing. Bone marrow aspirate, MDS standard FISH analysis: Results: Not Detected Interpretation: 5q deletion/monosomy 5: Not detected. PATIENT NAME: DENA ROSE PATHOLOGY DATE OF : 31 REPORT #: [id number] PHYSICIAN: FELIX BOUCHER PCP: KARTIK DUKES MD REPORT IS CONFIDENTIAL AND NOT TO BE RELEASED WITHOUT AUTHORIZATION [facility] [address] [place], [place] [address] Signed 7q deletion/monosomy 7: Not detected. Trisomy 8: Not detected. 20q deletion: Not detected. KMT2A (11q23) rearrangement: Not detected. Fluorescence in situ hybridization (FISH) analysis was performed using a myelodysplastic syndrome specific set of probes. No abnormality is detected. There is no evidence of deletion 5q, 7q, or 20q, or monosomy 5 or 7, trisomy 8, or KMT2A rearrangement. Probe set detail: 5q-/-5/+5 tricolor: nuc sarai(hTERT,EGR1,RPS14)x2[200] 7q-/-7 tri: nuc sarai(CEN7,P8D1155,B75H012)x2[200] 20q-/-20: nuc sarai(N77I265,20qter)x2[200] +8: nuc sarai (CEN8x2)[200] KMT2A (11q23) dual color: nuc sarai(SQO6Nd5)[200] Nuclei Scored: 200 Probe set: +8/20q-/-20, 5q-/-5/+5 tricolor, 7q-/-7 tri, KMT2A (MLL) (11q23)* Scoring method: Computer assisted technology CPT code: 08925 # of Units: 4 Electronic Signature Shwetha Campos M.D.,Pathologist All controls were within expected ranges. The Technical Component Processing of this test was completed at [facility] [place], [address] [place] [address] / [address] / [phone] / CLIA # [id number]. / Administrative Assistant Coordinator(s): Franco Pickett M.D.. The Technical Component Analysis of this test was completed at [facility] [place], [address] [place] [address], [address], [place], [place] / [address] / [phone] / CLIA# [id number] / Administrative Assistant Coordinator(s): Linda Hemphill MD. The Professional Component of this test was completed at [facility], [address] [place] [address] / / . (Accession / CaseNo: [id number] / [id number]). [facility] FISH test uses either FDA cleared and/or analyte specific reagent (ASR) probes. This test was developed and its performance characteristics determined by [facility] in [facility]. It has not been cleared or approved by the U.S. Food and Drug Administration (FDA). The FDA has determined that such clearance or approval is not necessary. This test is used for clinical purposes and should not be regarded as investigational or for PATIENT NAME: DENA ROSE PATHOLOGY DATE OF : 31 REPORT #: [id number] PHYSICIAN: FELIX PATHOLOGY PCP: KARTIK DUKES MD REPORT IS CONFIDENTIAL AND NOT TO BE RELEASED WITHOUT AUTHORIZATION [facility] [address] [facility] [place] [address] Signed research. This laboratory is regulated under CLIA '88 as qualified to perform high complexity testing.Interphase FISH does not include examination of the entire chromosomal complement. Clinically significant anomalies detectable by routine banded cytogenetic analysis may still be present. Consider reflex banded cytogenetic analysis. Images that may be included within this report are financial representative of the patient but not all testing in its entirety and should not be used to render a result. The CPT codes provided with our test descriptions are based on AMA guidelines and are for informational purposes only. Correct CPT coding is the sole responsibility of the billing green party. Please direct any questions regarding coding to the payer being billed. Diagnostician: Thiago Cadet MD Pathologist Electronically Signed 01/31/2021 Copies: ~ PATIENT NAME: DENA ROSE PATHOLOGY DATE OF : 31 REPORT #: [id number] PHYSICIAN: FELIX BOUCHER PCP: KARTIK DUKES MD REPORT IS CONFIDENTIAL AND NOT TO BE RELEASED WITHOUT AUTHORIZATION
== END 2021-01-17 14:00 | disposition home or self-care (01) ==
LOC: OPS 10:28 → DS 10:28 → OPS 12:00 → DS 12:00 → OPS 14:00
PROVIDERS: ATTEND Specialist
PROC: 07JT3ZZ Inspection of Bone Marrow, Percutaneous Approach (ICD-10-PCS; principal; 2021-01-17 12:00)
DX: D46.9 Myelodysplastic syndrome, unspecified (principal); C61 Malignant neoplasm of prostate; I25.2 Old myocardial infarction; Z96.651 Presence of right artificial knee joint; Z96.641 Presence of right artificial hip joint; Z95.5 Presence of coronary angioplasty implant and graft
CPT/HCPCS: 80053; 81001; 83615; 85045; 86880; 88184; 88185; 88305; 88313; 88341; 88342; 88360; 99153; G0500; J2250; J3010